=== PATIENT | male | born 1960 | race Caucasian/White ===

== ENCOUNTER 2023-04-24 09:18 | Inpatient (IN) | payer OTHER, MEDICAID, SELFPAY ==
[2023-04-24] VITALS (11 sets, daily range): BP systolic 97–147; BP diastolic 52–86
--- NOTE | 2023-04-24 06:55 | ED.GENMED ---
History of Present Illness
General
Chief Complaint: Breathing Problem
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
Exam Limitations: none
Time Seen by Provider: 04/24/23 06:48
Nursing documentation reviewed up to this point in time: agreed with
History of Present Illness
History of Present Illness:
62-year-old male with a past medical history as documented notable for COPD who presents to the emergency department via EMS for evaluation of shortness of breath. Patient reports onset of symptoms overnight last night he thinks around 1 AM. He
says they have been constant since that time. He reports associated cough that is productive of scant amount of sputum. He says he has associated substernal chest tightness. He denies any associated fever or chills although had a low-grade fever
on arrival here. He has not noticed any swelling in his legs. Denies any abdominal pain, nausea, vomiting. Per EMS report patient received 2 DuoNebs prior to arrival in the hospital.
Review of Systems
Review of Systems
All Other Systems: ROS reviewed and negative except as documented in HPI and ROS
Constitutional: Denies fever or chills
EENT: Denies runny nose
Respiratory: Reports cough and trouble breathing
Cardiac: Reports chest pain; Denies palpitations
ABD/GI: Denies abdominal pain, nausea or vomiting
: Denies flank pain
Musculoskeletal: Denies edema, neck pain or back pain
Neurological: Denies headache, weakness or numbness
Phy Exam
Physical Exam
Physical Exam:
General: Awake, alert, oriented x3; no acute distress
Head: Normocephalic, atraumatic
Eyes: Conjunctiva normal, right eye strabismus
Throat: Airway intact, handling secretions
Neck: Trachea midline, supple without meningismus
Lungs: Pulse ox 87% on room air; acceptable respiratory rate and work of breathing; he has focally diminished breath sounds at the right lung base; no significant wheezing or rales appreciated
Heart: Regular rate and rhythm, faint systolic murmur
Abd: Soft, non distended, nontender
Neuro: Cranial nerves grossly intact, speech fluid
Skin: no rash
Extremities: No edema in extremities, equal pulses in all extremities
Scores
Heart Failure Risk
Heart Failure Risk Score: Not Applicable
Heart Score for Chest Pain Patients
STEMI patient?: Not applicable
Withdrawal Assessment of Alcohol
Withdrawal Assessment Completed?: Not applicable
Course
Orders/Labs/Results
Orders:
Orders
04/24/23 06:54
CR Chest Portable - 1 View Urgent
Comment:
Reason For Exam: sob
Reason Study Needs to be Portable: Unable to Transport
04/24/23 06:55
Electrocardiogram (*1) Urgent
Reason for Study: Shortness of Breath
EKG- Treatment ONCE
04/24/23 06:59
Acetaminophen [Tylenol] 1,000 mg PO NOW STA
04/24/23 07:00
COVID-19 Antigen Urgent
Source: Nasal Swab
Complete Blood Count/With Diff Urgent
Influenza A+B Rapid Molecular Urgent
TUSHAR Source: Nasal Swab
Specimen Description:
04/24/23 07:12
Acetaminophen [Tylenol] 500 mg .ROUTE .STK-MED ONE
04/24/23 07:15
Lactate Level [Lactic Acid] Urgent
Blood Culture Q30M
TUSHAR Source: Blood/Venous
Specimen Description:
04/24/23 07:25
Azithromycin 500 mg/250 ml [Zithromax Infusion] 500 mg in 250 ml IV NOW
CefTRIAXone [Rocephin] 1,000 mg IV NOW STA
04/24/23 07:28
Blood Culture Q30M
TUSHAR Source: Blood/Venous
Specimen Description:
04/24/23 07:29
0.9% Sodium Chloride 500 ml [Nss] 500 ml IV BOLUS
04/24/23 07:38
Comprehensive Metabolic Panel Urgent
NT-proBNP Urgent
Troponin I Urgent
Vital Signs
Initial and Last Documented VS:
Initial Vital Signs
Temp Pulse Resp BP Pulse Ox
38.3 C H 101 16 147/75 91
04/24/23 06:51 04/24/23 06:51 04/24/23 06:51 04/24/23 06:51 04/24/23 06:51
Last Documented Vital Signs
Temp Pulse Resp BP Pulse Ox
38.3 C H 101 16 147/75 96
04/24/23 06:51 04/24/23 06:51 04/24/23 06:51 04/24/23 06:51 04/24/23 06:51
MDM/Problems Addressed
Differential Diagnosis Includes:
Pneumonia, COPD exacerbation, bronchitis, pulmonary embolism
MDM/Problems Addressed:
62-year-old male presents for evaluation of shortness of breath associated with coughing and some chest tightness that started overnight last night. He did receive 2 DuoNeb's prior to arriving in the hospital says he feels slightly better but still
not normal. Vital signs here significant for low-grade fever and hypoxia to 87% requiring 2 L nasal cannula. Physical exam as above. Plan to place an IV check labs including a CBC and CMP, troponin, BNP. Will send lactate and blood cultures
given multiple SIRS criteria. Check an EKG and stat chest x-ray. Tylenol for fever. Will monitor closely reassess after the above.
Chest x-ray reviewed by me shows right lower lobe opacity concerning for pneumonia given full clinical picture. Plan to treat for community-acquired pneumonia with Rocephin and azithromycin. Plan for admission given his acute respiratory failure
requiring 2 L of nasal oxygen. Case discussed with hospitalist for admission.
Chronic conditions affecting care:
COPD
*Radiology
Radiology exam reviewed: preliminary read by ED provider and radiology read reviewed
*Pulse Oximetry
Patient hypoxic: yes
*EKG
Interpreted by ED Provider?: Yes
Comparison EKG: changes noted (Inferior T wave versions)
Heart Rate: 105
Rate: tachycardiac
Rhythm: sinus and sinus tachycardia
Henderson: right axis deviation
Interval: normal interval
QRS Pattern: normal QRS
Ischemia: T-wave inversion (Inferior T wave inversions)
*Critical Care Note
Total Time (30-74mins, 75-104mins- exclusive of procedures): Not Applicable
Data Reviewed
Source: patient, records and ambulance crew
Patient Management
Discussion with other providers: Hospitalist (Discussed with hospitalist)
Escalation/DeEscalation of care consider admission/obs:
Admission indicated
ED Attending Note
-
Portions of this chart may have been created with voice recognition software.� Occasional wrong word or��sound alike� substitutions may have occurred due to the inherent limitations of voice recognition software.
Discharge Plan
Departure
Patient Disposition: Admit
Date of Disposition: 04/24/23
Time of Disposition: 07:57
Admit to doctor: Ty
Presentation/result/management discussed w/ accepting MD/DO: Hospitalist
Discharge Problem:
Pneumonia, Acute respiratory failure with hypoxia
Prescriptions:
No Action
dorzolamide-timolol 1 DROP drops
1 drp BOTH EYES BID
sitagliptin phosphate [Januvia] 100 MG tablet
100 mg PO DAILY
metformin 1,000 MG tablet
1,000 mg PO DAILY
atenolol 25 MG tablet
25 mg PO DAILY
alum-mag hydroxide-simeth [Mag-Al Plus] 30 ML suspension
30 ml PO DAILYPRN PRN (Reason: indegestion)
cyanocobalamin (vitamin B-12) 1,000 MCG tablet
500 mcg PO DAILY
fexofenadine 180 MG tablet
180 mg PO DAILY
aspirin 81 MG tablet,delayed release (DR/EC)
81 mg PO DAILY
bismuth subsalicylate [Stomach Relief] 30 ML suspension
524 ml PO Q4HPRN PRN (Reason: GI upset)
levothyroxine 200 MCG tablet
200 mcg PO DAILY AT 0700
lisinopril 2.5 MG tablet
2.5 mg PO DAILY
cholecalciferol (vitamin D3) 2,000 UNITS tablet
4,000 units PO DAILY
iloperidone [Fanapt] 12 MG tablet
12 mg PO DAILY
oakfzqpohvo-hwooxrqps-ynwggpjt [Trelegy Ellipta] 1 EACH blister with device
1 ea IH R DAILY
divalproex 250 MG tablet,delayed release (DR/EC)
250 mg PO BID
divalproex 500 MG tablet,delayed release (DR/EC)
1,000 mg PO BID
hydroxyzine HCl 25 MG tablet
50 mg PO QPM
olanzapine 10 MG tablet
20 mg PO QPM
ketoconazole 1 APPLIC cream
0 applic topical BID
Patient Comments:
11/26/20: Per Mayur Miller RN, order for ketoconazole does not specify where to apply
guaifenesin [Mucus Relief ER] 600 MG tablet extended release 12hr
1,200 mg PO Q12 Qty: 14 0RF
levofloxacin 500 MG tablet
500 mg PO DAILY Qty: 5 0RF
furosemide [Lasix] 20 MG tablet
20 mg PO DAILY Qty: 5 0RF
Referrals:
UNKNOWN - PT DOES,NOT KNOW [Family Provider] -
Interventions
Interventions:
*Risk Screen - Suicide Last Done: 04/24/23 06:51
*General Assessment Last Done: 04/24/23 06:51
*Neglect/Abuse Screening Last Done: 04/24/23 06:51
*ED COVID-19 Vaccine History Last Done: 04/24/23 06:51
ED- Cardiac Assessment Last Done: 04/24/23 06:51
ED- Pulmonary Assessment Last Done: 04/24/23 06:51
[2023-04-24] MEDS: TYLENOL 1000 MG PO (07:11)
[2023-04-24] MEDS: NSS 500 IV ×2 (07:31→08:50)
[2023-04-24] MEDS: ROCEPHIN 1000 MG IV (07:31)
[2023-04-24] MEDS: ZITHROMAX INFUSION 250 IV (07:31)
--- NOTE | 2023-04-24 07:35 | EDRN ---
Pt's staff member from [facility] is at bedside. Pt continues to cough, placed on 2L nasal cannula to keep SPO2 > 90%
[2023-04-24 08:07] LABS: Lactic Acid 2.6 mmol/L (0.7-2.0)
[2023-04-24 08:16] LABS: COVID-19 Antigen Negative (Negative)
[2023-04-24 08:17] LABS: ALT (SGPT) 19 U/L (0-50); AST (SGOT) 20 U/L (17-59); Albumin 3.1 g/dl (3.5-5.0); Alkaline Phosphatase 59 U/L (38-126); Blood Urea Nitrogen 27 mg/dl (9-20); Calcium 8.7 mg/dl (8.4-10.2); Carbon Dioxide 32 mmol/L (22-30); Chloride 98 mmol/L (98-107); Glucose 252 mg/dl (70-99); Potassium 4.6 mmol/L (3.5-5.1); Sodium 136 mmol/L (135-145); Total Bilirubin 0.9 mg/dl (0.2-1.3); Total Protein 5.6 g/dl (6.3-8.2); eGFR > 60.00
[2023-04-24 08:29] LABS: NT-proBNP 132 pg/ml; Troponin I 0.029 ng/ml
--- NOTE | 2023-04-24 09:08 | HPS.HSE ---
Family Physician
-
Family Physician: NOT KNOW UNKNOWN - PT DOES
Chief Complaint
-
Shortness of breath/cough
History of Present Illness
Patient is 62-year-old male with past medical history of schizophrenia, COPD, GERD, hypothyroidism, essential hypertension was brought in from [facility] after patient was noted to having new shortness of breath. Patient not able to
provide any detailed information although does feel short of breath. Denies of having any cough. Complaining some congestion. In ER patient hypoxic requiring 2 L oxygen through nasal cannula, at baseline patient not on any oxygen. Patient
spiking temperature of 100.9 Fahrenheit, according to caregiver at bedside in ER patient was noted to having some chills, no reported fever. Patient denies of having any other abdominal or complaints.
Medical History
Past Medical History
Past Medical History: Reports Other
Additional Past Medical History:
schizophrenia, COPD, GERD, hypothyroidism, essential hypertension
Past Surgical History: Reports Other
Social History
Unable to obtain full social history at this time due to: Other (Schizophrenic, details unknown)
Living: Other (intermediate)
Family History
Family History: Unable to Obtain
Allergies / Home Medications
Allergies reflects when Allergies were last updated in [facility].
Home Medications with original date entered in [facility]opay
Allergy/Medication List:
Allergies
Allergy/AdvReac Type Severity Reaction Status Date / Time
No Known Allergies Allergy Verified 11/26/20 09:35
Home Medications
aluminum-mag hydroxide-simethicone 200 mg-200 mg-20 mg/5 mL oral susp (Mag-Al Plus) 30 ml PO DAILYPRN PRN indegestion 10/12/18
atenolol 25 mg tablet 25 mg PO DAILY Blood pressure 10/12/18
sitagliptin phosphate 100 mg tablet (Januvia) 100 mg PO DAILY Diabetes 10/12/18
cyanocobalamin (vitamin B-12) 1,000 mcg tablet 500 mcg PO DAILY Supplement 07/08/19
divalproex 250 mg tablet,delayed release 250 mg PO BID total dose 1250mg BID 07/08/19
fexofenadine 180 mg tablet 180 mg PO DAILY Allergies 07/08/19
iloperidone 12 mg tablet (Fanapt) 12 mg PO DAILY Mental Health/Anxiety 07/08/19
levothyroxine 200 mcg tablet 200 mcg PO DAILY AT 0700 Thyroid 07/08/19
lisinopril 2.5 mg tablet 2.5 mg PO DAILY Blood pressure 07/08/19
divalproex 500 mg tablet,delayed release 1,000 mg PO BID total 1250mg BID 11/26/20
hydroxyzine HCl 25 mg tablet 50 mg PO HS Mental Health/Anxiety 11/26/20
olanzapine 10 mg tablet 20 mg PO QPM Mental Health/Anxiety 11/26/20
acetaminophen 325 mg tablet (Tylenol) 650 mg PO Q4H PRN mild pain, fever 04/24/23
albuterol sulfate 90 mcg/actuation aerosol inhaler 2 puff inhalation Q4HPRN PRN shortness of breath 04/24/23
atorvastatin 20 mg tablet 20 mg PO DAILY 04/24/23
insulin aspart U-100 100 unit/mL (3 mL) subcutaneous pen (Novolog FlexPen U-100 Insulin aspart) 0 - 14 unit SC AC Diabetes 04/24/23
ipratropium 0.5 mg-albuterol 3 mg (2.5 mg base)/3 mL nebulization soln 3 ml inhalation Q4H PRN SOB/ wheezing 04/24/23
metformin 500 mg tablet 500 mg PO BID Diabetes 04/24/23
omeprazole 20 mg tablet,delayed release 20 mg PO DAILY Gastrointestinal Issue 04/24/23
Review of Systems
-
A 12 point ROS was completed and negative except as noted: Yes
Physical Exam
Vital Signs
Vital Signs
Temp Pulse Resp BP Pulse Ox
100.9 F H 101 16 147/75 96
04/24/23 06:51 04/24/23 06:51 04/24/23 06:51 04/24/23 06:51 04/24/23 06:51
Physical Exam
General: No Apparent Distress; No Respiratory Distress
HEENT: Atraumatic and Oxygen (2L NC)
Respiratory: Wheezes; No Rhonchi or Crackles
Cardiac: S1/S2 and Regular Rhythm; No Murmur or Rub
GI: Soft, Non Tender, Non Distended and Normal Bowel Sounds; No Organomegaly
Musculoskeletal: No Cyanosis and No Edema
Skin: No Rash
Neuro: Awake, Alert and Nonfocal/grossly intact
Psych: Calm
Laboratory Results
-
04/24/23 07:38
Laboratory Results
Lactic Acid 2.6 mmol/L (0.7-2.0) H 04/24/23 07:15
Total Bilirubin 0.9 mg/dl (0.2-1.3) 04/24/23 07:38
AST 20 U/L (17-59) 04/24/23 07:38
ALT 19 U/L (0-50) 04/24/23 07:38
Alkaline Phosphatase 59 U/L (38-126) 04/24/23 07:38
Troponin I 0.029 ng/ml 04/24/23 07:38
Data Reviewed
-
Diagnostic Radiology: Image Personally Visualized and interpreted and Report Reviewed by me
Lab Data: Labs Reviewed by me
Impression/Plan
-
1. Right lower lobe pneumonia
Acute hypoxic respite insufficiency
Sepsis -tachycardic/febrile
-Patient presented for new onset of cough/shortness of breath. Temperature of 100.9 in ER.
-Chest x-ray showing right lower lobe infiltrates
-WBC normal. Heart rate 103. EKG showing sinus tachycardia
-COVID/flu negative. Check blood culture.
-Patient got dose of Rocephin and azithromycin continue
-Wean off oxygen as possible
2. COPD flareup
-Patient wheezing on exam, with ongoing pneumonia sepsis we will treat as asthma flare up
-Start on oral prednisone 40mg/d
-neb therapy ordered
3. schizophrenia
-Maintain on home medication of divalproex/Fanapt/olanzapine
-no behavioral problems
4. Hypotension
Essential HTN
-Patient blood pressure soft, improved with IV fluid
-Continue home hypertensive medication with hold parameter
GERD
hypothyroidism
DVT PPX - lovenox
Full code- facility face sheet reviewed
Total time spent : 80 mins
I personally saw and examined the patient.
I have reviewed all diagnostic interpretations and treatment plans as written.
Time includes patient management by me, time spent at the patients bedside, time to review lab and imaging results, discussing patient care, documentation in the medical record, and time spent with the family or caregiver and discussing care plan
with RN/Consultants.
[2023-04-24] MEDS: DELTASONE 40 MG PO (09:29)
[2023-04-24 09:36] LABS: % Basophils 0.6 % (0-2); % Immature Granulocytes 3.1 % (0-0.5); % Lymphocytes 9.8 % (20.5-51.1); % Monocytes 26.9 % (1.7-9.3); % Neutrophils 59.6 % (42.2-75.2); Absolute Immature Granulocytes 0.2 10^3/uL (0-0.05); Absolute Lymphocytes 0.5 10^3/uL (1.2-3.4); Absolute Monocytes 1.4 10^3/uL (0.1-0.6); Hematocrit 34.8 % (39.0-52.0); Hemoglobin 11.6 g/dL (13.0-18.0); Mean Corp Hgb Conc. 33.3 g/dL (33.0-37.0); Mean Corpuscular Hgb 32.5 pg (27.0-31.0); Mean Corpuscular Volume 97.5 fL (80.0-94.0); Nucleated Red Blood Cells % 0 % (-); Red Blood Cell Count 3.57 10^6/uL (4.70-6.10); Red Cell Dist. Width 13.6 % (11.5-14.5); White Blood Cell Count 5.1 10^3/uL (4.8-10.8)
[2023-04-24 10:25] LABS: Platelet Count 133 10^3/uL (130-400)
[2023-04-24 10:32] LABS: Band Neutrophils 1 % (0-3); Lymphocytes 26 % (20-51); Monocytes 15 % (2-9); Segmented Neutrophils 58 % (42-75)
[2023-04-24 10:33] LABS: Normal RBC Morphology Yes; Platelets Checked Yes; Total Cells Counted 100
[2023-04-24 14:15] LABS: Glucose - Point of Care 274 mg/dl (70-99)
--- NOTE | 2023-04-24 15:17 | PTCARENOTE ---
Rn Flow Assistant To The Vice President-Patient unable to providee all answers to admission questions. Called to Nurse Levin at [facility] for information.
--- NOTE | 2023-04-24 16:33 | EDRN ---
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 Pt transported upstairs.
[2023-04-24 16:46] LABS: Glucose - Point of Care 402 mg/dl (70-99)
[2023-04-24] MEDS: NOVOLOG FLEXPEN-LOW RESISTANCE SC (16:48)
[2023-04-24] MEDS: NSS 1000 IV (17:00)
[2023-04-24] MEDS: JANUVIA 100 MG PO (17:01)
[2023-04-24] MEDS: LOVENOX 40 MG SC (17:01)
[2023-04-24] MEDS: ZYPREXA 20 MG PO (17:01)
[2023-04-24] MEDS: ATARAX 50 MG PO (17:01)
[2023-04-24] MEDS: SYNTHROID PO (17:04)
[2023-04-24 17:16] LABS: Glucose 368 mg/dl (70-99)
[2023-04-24] MEDS: NOVOLOG FLEXPEN-LOW RESISTANCE 5 UNITS SC (17:32)
[2023-04-24] MEDS: TYLENOL 650 MG PO (20:34)
[2023-04-24] MEDS: DEPAKOTE (12 HR RELEASE) 250 MG PO (20:35)
[2023-04-24] MEDS: DEPAKOTE (12 HR RELEASE) 1000 MG PO (20:35)
[2023-04-24 21:41] LABS: Glucose - Point of Care 225 mg/dl (70-99)
[2023-04-25] MEDS: MAALOX 30 ML PO (00:15)
[2023-04-25] MEDS: DUONEB 3 ML INH ×2 (05:30→08:29)
--- NOTE | 2023-04-25 06:00 | PTCARENOTE ---
Pt found lying in bed, had O2 off. pulse ox 72% on RA. Placed on 4L, pulse ox 93%. Pt SOB and wheezing. TT respiratory for PRN neb. Pulse ox after treatment 99% on 4L. O2 turned down to 3L, pulse ox now 93%. Pt resting comfortably in bed. Will
continue to monitor.
[2023-04-25 06:48] LABS: Hematocrit 34.3 % (39.0-52.0); Mean Corp Hgb Conc. 32.1 g/dL (33.0-37.0); Mean Corpuscular Hgb 32.2 pg (27.0-31.0); Mean Corpuscular Volume 100.3 fL (80.0-94.0); Mean Platelet Volume 10.4 fL (7.4-10.4); Platelet Count 171 10^3/uL (130-400); Red Blood Cell Count 3.42 10^6/uL (4.70-6.10); Red Cell Dist. Width 13.7 % (11.5-14.5); White Blood Cell Count 3.8 10^3/uL (4.8-10.8)
[2023-04-25 07:26] LABS: ALT (SGPT) 18 U/L (0-50); AST (SGOT) 25 U/L (17-59); Albumin 2.9 g/dl (3.5-5.0); Alkaline Phosphatase 54 U/L (38-126); Blood Urea Nitrogen 23 mg/dl (9-20); Calcium 8.6 mg/dl (8.4-10.2); Carbon Dioxide 37 mmol/L (22-30); Chloride 93 mmol/L (98-107); Estimated Creatinine Clearance 116 ml/min; Glucose 169 mg/dl (70-99); Potassium 4.5 mmol/L (3.5-5.1); Sodium 135 mmol/L (135-145); Total Bilirubin 0.6 mg/dl (0.2-1.3); Total Protein 5.4 g/dl (6.3-8.2); eGFR > 60.00
[2023-04-25] MEDS: NSS 1000 IV (08:07)
[2023-04-25] MEDS: LIPITOR 20 MG PO (08:08)
[2023-04-25] MEDS: JANUVIA 100 MG PO (08:08)
[2023-04-25] MEDS: VIBRAMYCIN 100 MG PO ×2 (08:08→20:54)
[2023-04-25] MEDS: SYNTHROID 200 MCG PO (08:08)
[2023-04-25] MEDS: DEPAKOTE (12 HR RELEASE) 1000 MG PO ×2 (08:09→20:54)
[2023-04-25] MEDS: CLARITIN 10 MG PO (08:09)
[2023-04-25] MEDS: PROTONIX 40 MG PO (08:09)
[2023-04-25] MEDS: DEPAKOTE (12 HR RELEASE) 250 MG PO ×2 (08:09→20:54)
[2023-04-25] MEDS: DELTASONE 40 MG PO (08:09)
[2023-04-25 08:13] VITALS: BP 93/53
[2023-04-25] MEDS: TYLENOL 650 MG PO ×2 (08:16→21:13)
[2023-04-25 09:00] LABS: Glucose - Point of Care 153 mg/dl (70-99)
[2023-04-25] MEDS: NOVOLOG FLEXPEN-LOW RESISTANCE 1 UNITS SC (09:32)
[2023-04-25] MEDS: ROCEPHIN 1000 MG IV (09:36)
[2023-04-25] MEDS: STERILE WATER FOR INJECTION 10 ML IV (09:36)
[2023-04-25 09:49] LABS: Glycohemoglobin (HgbA1c) 8.5 % (4.0-5.6)
[2023-04-25 11:25] VITALS: BP 121/66; PULSE 100; O2SAT 98
[2023-04-25 11:27] VITALS: BP 121/66; PULSE 100; O2SAT 98
[2023-04-25 11:33] LABS: Glucose - Point of Care 210 mg/dl (70-99)
[2023-04-25] MEDS: NOVOLOG FLEXPEN-LOW RESISTANCE 2 UNITS SC ×2 (12:32→17:09)
--- NOTE | 2023-04-25 13:20 | CM ---
Reviewed chart, placed a call to [facility] intermediate for information for assessment. Patient's RN, Gonzalez' answered and stated that she is patient's RN and was able to provide information. She stated that patient lives in the intermediate on
the first floor with no steps.
Ollie described patient as in need of supervision with all his ADLs, personal care, dressing and bathing and needs cues as well/sometimes min assist. Patient can feed himself. The facility provides food, cleans, does laundry and all features editor.
There is always a nurse on site to administer medications. The facility does all the shopping and takes patient to his appointments.
Patient is ambulatory and does not use an AD. He has a glucomter. A nebulizer and he is on o2 prn and has home o2 as well as a concentrator.
Patient's PCP is Dr. Federico Edwards.
Ollie stated that when patient is medically cleared as long as he is close to his baseline they can assist him when he returns. She confirmed that facility can supervisor nurse and transfer home. # [phone].
Plan: Case management will continue to follow and assist with discharge planning. Patient's intermediate confirmed that they can accommodate patient's needs as long as he is near baseline.
--- NOTE | 2023-04-25 14:29 | W.PN.HOSP.TC ---
Today's Communication/Plan
-
continue abx
wean off o2 as possible
check vbg x1
Assessment / Plan
Assessment / Plan
1.� Right lower lobe pneumonia
�� � Acute hypoxic respite insufficiency
� � Sepsis -tachycardic/febrile
-Patient presented for new onset of cough/shortness of breath.� Temperature of 102.5 F in ER.
-Chest x-ray showing right lower lobe infiltrates
-WBC normal.� Heart rate 103.� EKG showing sinus tachycardia
-COVID/flu negative.� Blood cs neg
-Patient got dose of Rocephin and azithromycin continue
-Wean off oxygen as possible
2.� COPD flareup
-Patient wheezing on exam, with ongoing pneumonia sepsis we will treat as asthma flare up
-Start on oral prednisone 40mg/d
-neb therapy ordered
3. schizophrenia
-Maintain on home medication of divalproex/Fanapt/olanzapine
-no behavioral problems
4. Hypotension
� � Essential HTN
-Blood pressure remains soft again today.
-Hold blood pressure medication
5. Metabolic alkalosis
-HCO3 37, undiagnosed chronic hypercapnic resp failure ?
-check VBG
GERD
hypothyroidism
DVT PPX - lovenox
Full code- facility face sheet reviewed
Anticipated Discharge: 24 - 48 hours
Subjective/Interval History
-
Date of Service: April 25, 2023
Resting comfortably in bed
remains hypoxic on 3 L o2 through NC
high grade temp 102.5 F
Objective Data
-
Labs:
Laboratory Results
04/25/23
06:03
WBC 3.8 L
Hgb 11.0 L
Hct 34.3 L
Plt Count 171 D
Sodium 135
Potassium 4.5
Chloride 93 L
Carbon Dioxide 37 H
BUN 23 H
Creatinine 0.7
Glucose 169 H
Calcium 8.6
Total Bilirubin 0.6
AST 25
ALT 18
Alkaline Phosphatase 54
Vital Signs:
Vital Signs
Temp Pulse Resp BP Pulse Ox
99.6 F 100 24 93/53 95
04/25/23 09:30 04/25/23 08:33 04/25/23 08:33 04/25/23 08:17 04/25/23 08:33
I&O
04/24/23 04/25/23 04/26/23
06:59 06:59 06:59
Intake Total 1680 / 1680
Output Total 465 / 465
Balance 1215 / 1215
Review of Systems
-
Respiratory: Reports Wheezing; Denies Cough or Trouble Breathing
Cardiac: Reports No Symptoms
Abdomen/GI: Reports No Symptoms
Physical Exam
-
HEENT: Oxygen (3L NC)
Respiratory: Wheezes
Cardiac: Regular Rhythm and S1/S2; Negative Murmur
GI: Soft, Nontender and Nondistended
Neuro: Awake, Alert, Oriented and No Motor Deficits
[2023-04-25 15:03] VITALS: BP 119/61
[2023-04-25 15:05] LABS: Venous Blood Gas B.E. 11.1 mmol/L (-4 to +4); Venous Blood Gas HCO3 39.4 mmol/L (22-27); Venous Blood Gas O2 Sat % 98.2 %; Venous Blood Gas pH 7.34 (7.32-7.43); Venous Blood Gas pO2 115 mmHg (30-50)
[2023-04-25 15:07] LABS: Venous Blood Gas pCO2 73 mmHg (35-48)
[2023-04-25 15:57] LABS: Glucose - Point of Care 222 mg/dl (70-99)
[2023-04-25] MEDS: ZYPREXA 20 MG PO (17:09)
[2023-04-25] MEDS: ATARAX 50 MG PO (17:09)
[2023-04-25] MEDS: LOVENOX 40 MG SC (17:09)
[2023-04-25] MEDS: NON-FORMULARY ITEM 12 MG PO (20:54)
[2023-04-25 21:00] VITALS: BP 138/79
[2023-04-25 21:28] LABS: Urine Albumin Negative (Neg - Trace); Urine Bilirubin Negative (Negative); Urine Character Clear (Clear); Urine Color Yellow; Urine Glucose 2+ (Negative); Urine Ketone Trace (Negative); Urine Leukocyte Negative (Negative); Urine Nitrite Negative (Negative); Urine Occult Blood Negative (Negative); Urine Urobilinogen Negative (Neg - 1+)
[2023-04-25] MEDS: NSS IV (22:16)
[2023-04-25 22:40] LABS: Glucose - Point of Care 291 mg/dl (70-99)
[2023-04-25 23:05] VITALS: BP 124/65
[2023-04-26] VITALS (39 sets, daily range): BP systolic 95–181; BP diastolic 66–158; PULSE 2–94; BMI 31.2
[2023-04-26] MEDS: TYLENOL/FEVERALL 650 MG RECTAL (04:12)
[2023-04-26 06:46] LABS: Hemoglobin 10.9 g/dL (13.0-18.0); Mean Corp Hgb Conc. 32.1 g/dL (33.0-37.0); Mean Corpuscular Hgb 32.7 pg (27.0-31.0); Mean Corpuscular Volume 102.1 fL (80.0-94.0); Mean Platelet Volume 9.6 fL (7.4-10.4); Platelet Count 193 10^3/uL (130-400); Red Blood Cell Count 3.33 10^6/uL (4.70-6.10); Red Cell Dist. Width 13.4 % (11.5-14.5); White Blood Cell Count 3.3 10^3/uL (4.8-10.8)
[2023-04-26 07:07] LABS: ALT (SGPT) 18 U/L (0-50); AST (SGOT) 23 U/L (17-59); Albumin 2.8 g/dl (3.5-5.0); Alkaline Phosphatase 54 U/L (38-126); Blood Urea Nitrogen 19 mg/dl (9-20); Chloride 95 mmol/L (98-107); Estimated Creatinine Clearance 116 ml/min; Glucose 172 mg/dl (70-99); Potassium 4.7 mmol/L (3.5-5.1); Sodium 137 mmol/L (135-145); Total Bilirubin 0.4 mg/dl (0.2-1.3); Total Protein 5.3 g/dl (6.3-8.2); eGFR > 60.00
[2023-04-26 07:18] LABS: Carbon Dioxide 41 mmol/L (22-30)
--- NOTE | 2023-04-26 07:28 | CON.NEURO ---
Neuro Assessment/Plan
Assessment
IMPRESSIONS/RECOMMENDATIONS:
Abrupt change in left-sided facial weakness; not clearly present on examination currently in this patient with prior history of intellectual disability and schizophrenia
Continue supportive care
Check blood work for additional metabolic causes for the patient's encephalopathy which is most likely toxic metabolic in nature
Will continue to follow patient as needed.
Plan
Continue supportive care
Check blood work for additional metabolic causes for the patient's encephalopathy which is most likely toxic metabolic in nature
Consultation
Order
Date of Consultation: 04/26/23
Requesting Provider: Hospitalist
Reason for Consult: Change in mental status
Subjective/Objective
Subjective Data
Date of Service: April 26, 2023
Adapted from my esteemed colleagues consultation of October 15, 2018:
Reason for Consultation: seizure
History of Present Illness:
58-year-old male brought in yesterday from [facility] after he was found unresponsive. He was last seen normal around 8 PM. The staff checked on him around 11 and found him minimally responsive and called 911. The staff stated that similar
episodes of apnea in the past. He has a history of schizophrenia and has possibly been noncompliant with medications. He has a history of developmental delay and cognitive disability. It is unclear whether or not he has a history of seizures. He
is on Depakote as an outpatient and it is unclear whether or not he has been taking this. He has developed worsening respiratory distress. ABGs revealed acute on chronic hypercarbia and he has been placed on BiPAP and transferred to the eye and U.
However he appears to be back to his baseline mental status; at baseline he is apparently only oriented to self. He has also been found to have a UTI.
Neuro Imaging: Head CT with no acute findings, atrophy was seen
Impression:
NICOLA MOHR is a 58 year old M who has presented to the hospital after an episode of minimal responsiveness. He is now returned to his baseline mental status. He does take Depakote as an outpatient although it is unclear whether or not he is
on this for mood stabilization or for seizure. We will need to obtain his records. He has been found to have hypercarbia and possible UTI both of which could cause toxic metabolic encephalopathy. Provoked seizure is also on the differential.
Recommendations:
1. EEG
2. Loaded with Depakote as he did not receive it apparently on admission; check Depakote level and restart standing doses of Depakote that he takes as an outpatient
3. MRI brain with and without contrast
4. Seizure precautions
5. Continue neuro checks.
6. No AED at this time as his event was not clearly consistent with seizure activity.
Abnormal EEG Activity
Single medium amplitude left temporal sharp wave (T3 maximal)
LESS THAN 1 HOUR EEG INTERPRETATION:
Mildly abnormal EEG for age due to mild diffuse bihemispheric slowing and single sharp wave
CLINICAL CORRELATION:
This study was suggestive of mild diffuse cortical dysfunction without focal abnormality. No seizures were recorded. This study was limited by patient cooperation. If concerns remain, a longer recording may be of assistance.
~~~~
Patient was readmitted 2 days ago due to fever and shortness of breath. Subsequently, after admission, patient was described as having worsening mentation and new left facial droop beginning yesterday prompting this consultation. The patient
himself is unable to provide his own medical history. There are no known associated symptoms and no known modifying factors.
Objective Data
Vital Signs
Temp Pulse Resp BP Pulse Ox
38.3 C H 98 18 124/65 91
04/26/23 04:11 04/25/23 23:05 04/25/23 23:05 04/25/23 23:05 04/25/23 23:05
Lab Results
04/26/23 05:32
04/26/23 05:32
Sodium 137 mmol/L (135-145) 04/26/23 05:32
Potassium 4.7 mmol/L (3.5-5.1) 04/26/23 05:32
BUN 19 mg/dl (9-20) 04/26/23 05:32
Glucose 172 mg/dl (70-99) H 04/26/23 05:32
Calcium 8.0 mg/dl (8.4-10.2) L 04/26/23 05:32
Cmi-S-Rnrowkqsaff Pept 132 pg/ml 04/24/23 07:38
Patient Allergies
No Known Allergies Allergy (Verified 11/26/20 09:35)
Modified [place] Score (MRS)
-
MRS Score:
Review of Systems
-
Unable to obtain full review of systems at this time due to: Other (Cognitive impairment)
History Source: Patient
All other systems: Reviewed and negative
Physical Exam
-
General: No Apparent Distress and Appears Stated Age
Eyes: Round OU, [place] Conjunctivae and No Ptosis; Negative Able to visualize OU
HEENT: Anicteric and Moist Mucous Membranes
Neck: Full Range of Motion
Respiratory: No Dyspnea
Cardiac: No JVD
GI: Non-distended
Skin: Unremarkable
Extremities: No Clubbing, No Cyanosis and No Edema
Psych: Negative Intact Judgement/Insight
Extended Neurological Exam
Mood & Affect: Mood Unremarkable and Affect Unremarkable
Attention Span & Concentration: Awake, Interactive, Closes Eyes after Stimulation (After approximately 5 seconds), Unable to Perform 2 Step Request and Other (Moderate difficulty with single step requests)
Memory: Able to Recall (Own name), Reduced (For current location) and Unable to Recall Personal History
Tremor: Hand Tremor Absent and Head Tremor Absent
Speech: Quality Unremarkable and Quantity Unremarkable
Cranial Nerve II: Left Eye: Pupillary Reactivity Unremarkable, Pupillary Size Unremarkable and Unable to Assess Visual Malin
Cranial Nerve II: Right Eye: Pupillary Reactivity Unremarkable, Pupillary Size Unremarkable and Unable to Assess Visual Malin
Cranial Nerves III, IV, : Extraocular Movement: Grossly Intact and Other (2+ left eye exotropia)
Cranial Nerve V: Facial Sensation: Unable to Assess
Cranial Nerve VII: Facial Symmetry: Normal Facial Symmetry
Cranial Nerve VIII: Hearing: Unremarkable Hearing to Normal Conversational Volume
Cranial Nerves IX, X: Palate Movement: Palate Elevation Symmetric
Cranial Nerve XI: Shoulder Shrug: Unremarkable
Cranial Nerve XII: Tongue Protusion: Midline
Muscle Strength, Overall: Full Throughout
Muscle Bulk & Tone: Bulk Unremarkable and Tone Unremarkable
Pronator Drift: No Drift in Upper Extremities
Deep Tendon Reflexes: Unremarkable Throughout
Touch Sensation: Unremarkable
Coordination: Reaches for Objects without Difficulty
Babinski Sign: Absent Bilaterally
Gait & Station: Unable to Assess
Medications
-
Active Medications
Generic Name Dose Route Start Last Admin
Trade Name Freq PRN Reason Stop Dose Admin
Acetaminophen 650 mg 04/24/23 13:01 04/25/23 21:13
Acetaminophen 325 Mg Tablet PO 05/22/23 13:00 650 mg
Q4HPRN PRN Administration
SEGURA/mild pain/temp > 100.4 F
Acetaminophen 650 mg 04/24/23 13:01 04/26/23 04:12
Acetaminophen 650 Mg Rectal Suppository RECTAL 05/22/23 13:00 650 mg
Q4HPRN PRN Administration
SEGURA/ mild pain/ temp >/= 100.4F
Albuterol/Ipratropium 3 ml 04/24/23 13:01 04/25/23 08:29
Ipratropium 0.5/Albuterol 3 Mg (3 Ml Ampul) INH 05/22/23 13:00 3 ml
R Q4HPRN PRN Administration
shortness of breath
Protocol
Atenolol 25 mg 04/25/23 08:00 04/25/23 08:16
Atenolol 25 Mg Tablet PO 05/23/23 07:59 Not Given
DAILY YAA
Atorvastatin Calcium 20 mg 04/25/23 08:00 04/25/23 08:08
Atorvastatin (Lipitor) 20 Mg Tablet PO 05/23/23 07:59 20 mg
DAILY YAA Administration
Dextrose 12.5 grams 04/24/23 13:01
Dextrose 50% (0.5 Grams/Ml) 50 Ml Syringe IV 05/22/23 13:00
[id number] PRN
hypoglycemia
Protocol
Divalproex Sodium 250 mg 04/24/23 20:00 04/25/23 20:54
Divalproex 250 Mg Delayed Release (12 Hr) Tablet PO 05/22/23 19:59 250 mg
BID YAA Administration
Divalproex Sodium 1,000 mg 04/24/23 20:00 04/25/23 20:54
Divalproex 500 Mg Delayed Release (12 Hr) Tablet PO 05/22/23 19:59 1,000 mg
BID YAA Administration
Enoxaparin Sodium 40 mg 04/24/23 18:00 04/25/23 17:09
Enoxaparin Sodium 40 Mg/0.4 Ml Syringe SC 05/22/23 17:59 40 mg
QPM YAA Administration
Glucagon 1 mg 04/24/23 13:01
Glucagon 1 Mg Vial IM 05/22/23 13:00
PRN PRN
hypoglycemia
Protocol
Insulin Aspart 0 units 04/24/23 13:01 04/25/23 17:09
Insulin Aspart Low Resistance 300 Units/3 Ml Pen.Injctr SC 05/22/23 13:00 2 units
AC YAA Administration
Protocol
Levothyroxine Sodium 200 mcg 04/24/23 13:01 04/25/23 08:08
Levothyroxine 200 Mcg Tablet PO 05/22/23 13:00 200 mcg
DAILY AT 0700 YAA Administration
Lisinopril 2.5 mg 04/25/23 08:00 04/25/23 08:17
Lisinopril 2.5 Mg Tablet PO 05/23/23 07:59 Not Given
DAILY YAA
Loratadine 10 mg 04/25/23 08:00 04/25/23 08:09
Loratadine 10 Mg Tablet PO 05/23/23 07:59 10 mg
DAILY YAA Administration
Patient Own 0 mg 04/25/23 20:00 04/25/23 20:54
Medication PO 05/23/23 19:59 12 mg
Iloperidone [Fanapt] DAILY@2000 YAA Administration
12 Mg Po Daily At
20:00
Pantoprazole Sodium 40 mg 04/25/23 08:00 04/25/23 08:09
Pantoprazole 40 Mg Delayed Release Tablet PO 05/23/23 07:59 40 mg
DAILY YAA Administration
Prednisone 40 mg 04/25/23 08:00 04/25/23 08:09
Prednisone 20 Mg Tablet PO 05/23/23 07:59 40 mg
DAILY YAA Administration
Sitagliptin Phosphate 100 mg 04/24/23 14:00 04/25/23 08:08
Sitagliptin (Januvia) 100 Mg Tablet PO 05/22/23 13:59 100 mg
DAILY YAA Administration
Sodium Chloride 0 flush 04/24/23 16:00
Sodium Chloride 0.9% (Flush) Syringe IV 05/22/23 15:59
PER PROTOCOL YAA
Sterile Water 10 ml 04/25/23 10:00 04/25/23 09:36
Sterile Water For Injection 10 Ml Vial IV 05/23/23 09:59 10 ml
Q24H YAA Administration
Home Medications
Medication Instructions Recorded
aluminum-mag hydroxide-simethicone 30 ml PO DAILYPRN PRN indigestion 10/12/18
200 mg-200 mg-20 mg/5 mL oral susp
(Mag-Al Plus)
atenolol 25 mg tablet 25 mg PO DAILY Blood pressure 10/12/18
sitagliptin phosphate 100 mg 100 mg PO DAILY Diabetes 10/12/18
tablet (Januvia)
cyanocobalamin (vitamin B-12) 500 mcg PO DAILY Supplement 07/08/19
1,000 mcg tablet
divalproex 250 mg tablet,delayed 250 mg PO BID total dose 1250mg BID 07/08/19
release
fexofenadine 180 mg tablet 180 mg PO DAILY Allergies 07/08/19
iloperidone 12 mg tablet (Fanapt) 12 mg PO DAILY@1999 schizoprenia 07/08/19
levothyroxine 200 mcg tablet 200 mcg PO DAILY AT 0700 Thyroid 07/08/19
lisinopril 2.5 mg tablet 2.5 mg PO DAILY Blood pressure 07/08/19
divalproex 500 mg tablet,delayed 1,000 mg PO BID total 1250mg BID 11/26/20
release
hydroxyzine HCl 25 mg tablet 50 mg PO HS Mental Health/Anxiety 11/26/20
olanzapine 10 mg tablet 20 mg PO DAILY@1999 Mental 11/26/20
Health/Anxiety
acetaminophen 325 mg tablet 650 mg PO Q4H PRN mild pain, fever 04/24/23
(Tylenol)
albuterol sulfate 90 mcg/actuation 2 puff inhalation Q4HPRN PRN 04/24/23
aerosol inhaler shortness of breath
atorvastatin 20 mg tablet 20 mg PO DAILY High Cholesterol 04/24/23
insulin aspart U-100 100 unit/mL 0 - 14 unit SC AC Diabetes 04/24/23
(3 mL) subcutaneous pen (Novolog
FlexPen U-100 Insulin aspart)
ipratropium 0.5 mg-albuterol 3 mg 3 ml inhalation Q4H PRN SOB/ 04/24/23
(2.5 mg base)/3 mL nebulization wheezing
soln
metformin 500 mg tablet 500 mg PO BID@0800,1700 Diabetes 04/24/23
omeprazole 20 mg tablet,delayed 20 mg PO DAILY Gastrointestinal 04/24/23
release Issue
glucose 4 gram chewable tablet 16 g PO ONCE PRN BS<70 04/25/23
(TRUEplus Glucose)
polyethylene glycol 3350 17 gram 17 g PO DAILY PRN constipation 04/25/23
oral powder packet (Miralax)
Past History
Past History
ED Past Medical History: COPD, GERD, HTN, NIDDM, Hypothyroidism, Psychiatric (Schizophrenia) and Other (COVID-21 July 2019, BPH, glaucoma)
ED Past Surgical History: None
Social History
Tobacco: Non-smoker
Alcohol: None
Drug: None
Personal: Single
Living: detention
Employment: Disabled
Family History
Family History: Other (Reviewed and noncontributory)
--- NOTE | 2023-04-26 07:48 | W.PN.HOSP.TC ---
Addendum entered and electronically signed by Lino Oates MD 04/26/23 11:36:
ABG showing ph 7.3 and Pco2 83
With worsening hypercapnia will require trial of BiPAP therapy, transfer to IMU
Recheck ABG ordered after 4hrs BiPAP therapy
Addendum entered and electronically signed by Lino Oates MD 04/26/23 08:36:
patient re-evaluated and more awake now
will hold on pulm consult/bipap thearpy
still would check abg x1
Holding on IMU transfer
Dose of olanzapine and hydroxyzine decreasing in half for tonight
Original Note:
Today's Communication/Plan
-
see note
Assessment / Plan
Assessment / Plan
1.� Right lower lobe pneumonia
�� � Acute hypoxic respite insufficiency
� � Sepsis -tachycardic/febrile
-Patient presented for new onset of cough/shortness of breath.� Temperature of 102.5 F in ER.
-Chest x-ray showing right lower lobe infiltrates
-WBC normal.� remains tachycardic
-COVID/flu negative.� Blood cs neg
-Patient continues to spike fever for last course. Blood culture remains negative so far
-UA has been relatively clear. No decubitus wounds
-f/u CXR and repeat COVID ordered.
-Escalate antibiotics to morning vancomycin and Zosyn
-ID consulted for further help.
2.� COPD flareup
-Patient wheezing on exam, with ongoing pneumonia sepsis we will treat as asthma flare up
-Start on oral prednisone 40mg/d
-neb therapy ordered
3. Acute toxic metabolic encephalopathy
Chronic Hypercapnic resp failure and met alkalosis
-Suspect a combination of hypercapnic respiratory failure and medication use related
-Patient on regimen of olanzapine 20 mg at bedtime, hydroxyzine 50 mg at bedtime, divalproex 1250 mg twice daily
-Holding olanzapine/hydroxyzine for now.
-Repeat ABG ordered. Trial of BiPAP therapy in IMU
4. Left facial droop
-noted yesterday evening by RN
-CT head w/o contrast normal
-MRI brain routine ordered
-Neuro help requested .
5. schizophrenia
-Maintain on home medication of divalproex/Fanapt/olanzapine
-no behavioral problems
6. Hypotension
� � Essential HTN
-Blood pressure remains soft again today.
-Hold blood pressure medication
GERD
hypothyroidism
DVT PPX - lovenox
Full code- facility face sheet reviewed
Case discussed with ID/pulmonology/neurology
Transfer to IMU for close observation for next 24 to 48 hours
Total time spent : 56 mins
I personally saw and examined the patient.
I have reviewed all diagnostic interpretations and treatment plans as written.
Time includes patient management by me, time spent at the patients bedside, time to review lab and imaging results, discussing patient care, documentation in the medical record, and time spent with the family or caregiver and discussing care plan
with RN/Consultants.
Anticipated Discharge: > 48 hours
Subjective/Interval History
-
Date of Service: April 26, 2023
Patient is more sedated today, opening eyes with physical stimuli only although no verbalizing anything
Remains hypoxic on oxygen through nasal cannula 2 L.
Remains in sinus tachycardia
Arteaga catheter in place, draining clear urine
Objective Data
-
Labs:
Laboratory Results
04/26/23 04/26/23
05:32 07:26
WBC 3.3 L
Hgb 10.9 L
Hct 34.0 L
Plt Count 193
HCO3 Pending
Sodium 137
Potassium 4.7
Chloride 95 L
Carbon Dioxide 41 H
BUN 19
Creatinine 0.7
Glucose 172 H
Calcium 8.0 L
Total Bilirubin 0.4
AST 23
ALT 18
Alkaline Phosphatase 54
Vital Signs:
Vital Signs
Temp Pulse Resp BP Pulse Ox
97.7 F 104 17 119/66 95
04/26/23 07:00 04/26/23 07:00 04/26/23 07:00 04/26/23 07:00 04/26/23 07:00
I&O
04/25/23 04/26/23 04/27/23
06:59 06:59 06:59
Intake Total 1680 / 1680
Output Total 465 / 465 950 / 950
Balance 1215 / 1215 -950 / -950
Review of Systems
-
Unable to obtain full review of systems at this time due to: Acuity
Physical Exam
-
General: Negative No Apparent Distress
HEENT: Oxygen (2L NC)
Respiratory: Wheezes and Rhonchi
Cardiac: Regular Rhythm, S1/S2 and Tachycardic; Negative Murmur
GI: Soft, Nondistended and Normal Bowel Sounds
Musculoskeletal: No Edema
Neuro: Awake (Minimal eye-opening is on physical stimuli) and No Motor Deficits
[2023-04-26 07:53] LABS: Glucose - Point of Care 160 mg/dl (70-99)
--- NOTE | 2023-04-26 07:59 | PHA.VAN.IN ---
Assessment
- Assessment
Renal Function: Appears similar to baseline
Concomitant Antimicrobials: piperacillin/tazobactam
AUC Dosing Plan
- Dosing Variables
Dosing Weight (kg): 91
Dosing CrCl (ml/min): 116
Vd coefficient (L/kg): 0.7
- Empiric Dosing
Initial / Loading Dose: 2000mg - administration pending
Maintenance Regimen: Vanc 1500mg Q12H starting at 1800
Estimated AUC (mcg*h/mL): 503
Estimated Peak (mcg*h/mL): 33.6
Estimated Trough (mcg/ml): 11.7
Estimated Half Life (H): 6.9
- Monitoring
No levels ordered at this time: consider levels in next few days
Pharmacokinetics Vancomycin I
- -
Patient Age: 62
Patient Sex: Male
Vancomycin Day #: 1
Indication: Other
Requesting Provider: Dr. Zachary Oates
Pertinent Antimicrobial Allergies:
NKDA
Height / Weight:
Height 5 ft 7 in
Actual Weight 91.4 kg
Pertinent Past Medical History: BMI ~32
- Vital Signs / Lab Results
Temp Pulse Resp BP Pulse Ox
97.7 F 104 17 119/66 95
04/26/23 07:00 04/26/23 07:00 04/26/23 07:00 04/26/23 07:00 04/26/23 07:00
Lab Results - Hematology
04/24/23 04/24/23 04/25/23
07:00 08:58 06:03
WBC Cancelled 5.1 3.8 L
Band Neutrophils 1
04/26/23
05:32
WBC 3.3 L
Band Neutrophils
Lab Results - Chemistry
04/24/23 04/24/23 04/25/23
07:00 07:38 06:03
BUN Cancelled 27 H 23 H
Creatinine Cancelled 0.8 0.7
Estimated Creat Clear Cancelled 116
Albumin Cancelled 3.1 L 2.9 L
04/26/23
05:32
BUN 19
Creatinine 0.7
Estimated Creat Clear 116
Albumin 2.8 L
04/24/23 04/24/23 04/24/23
07:15 13:17 17:01
Lactic Acid 2.6 H 1.0 Cancelled
04/24/23 04/25/23
21:01 01:01
Lactic Acid Cancelled Cancelled
Lab Results - Urine
04/25/23
21:22
Urine Nitrite (Reflex) Negative
Leukocyte Esterase Rfl Negative
Microbiology Results
04/24/23 07:28 Blood Culture - Preliminary
Blood/Venous No Growth in 48 hours- Final report to follow
04/24/23 07:15 Blood Culture - Preliminary
Blood/Venous No Growth in 48 hours- Final report to follow
04/24/23 07:00 Influenza Types A & B (CELINA) - Final
Nasal Swab Negative for Influenza A & B, NAAT
Negative results must be combined with clinical observations
and patient history.
Nucleic Acid Amplification test (NAAT)performed on the
[employer] platform.
[2023-04-26] MEDS: VANCOCIN 540 MG IV (08:13)
[2023-04-26] MEDS: NOVOLOG FLEXPEN-MODERATE RESISTANCE 1 UNITS SC (08:20)
[2023-04-26] MEDS: SYNTHROID 200 MCG PO (08:21)
[2023-04-26] MEDS: DELTASONE 40 MG PO (08:21)
[2023-04-26] MEDS: LIPITOR 20 MG PO (08:21)
[2023-04-26] MEDS: PROTONIX 40 MG PO (08:21)
[2023-04-26] MEDS: DEPAKOTE (12 HR RELEASE) 1000 MG PO (08:22)
[2023-04-26] MEDS: DEPAKOTE (12 HR RELEASE) 250 MG PO (08:22)
[2023-04-26] MEDS: CLARITIN 10 MG PO (08:22)
[2023-04-26 10:51] LABS: Erythrocyte Sed Rate 43 mm/hour (0-20)
[2023-04-26 11:09] LABS: B.E. 14.4 mmol/L; O2 Saturation % 94.2 % (94-98); PO2 70 mmHg (83-108); pH 7.33 (7.35-7.45)
[2023-04-26 11:24] LABS: HCO3 43.8 mmol/L (21-28); PCO2 83 mmHg (35-48)
[2023-04-26 11:26] LABS: TSH Reflex To Free T4 0.34 uIU/ml (0.47-4.68)
[2023-04-26] MEDS: ZOSYN 100 IV ×3 (11:33→20:29)
[2023-04-26] MEDS: STERILE WATER FOR INJECTION IV (11:34)
[2023-04-26 11:38] LABS: Glucose - Point of Care 252 mg/dl (70-99)
[2023-04-26] MEDS: NOVOLOG FLEXPEN-MODERATE RESISTANCE 5 UNITS SC ×2 (11:39→17:36)
[2023-04-26 12:02] LABS: Folate 9.8 ng/ml (2.76-20); Vitamin B12 917 pg/ml (239-931)
[2023-04-26] MEDS: DUONEB 3 ML INH ×2 (13:00→21:31)
[2023-04-26 13:09] LABS: COVID-19 Antigen Negative (Negative)
[2023-04-26 14:06] LABS: Free T4 1.27 ng/dl (0.78-2.19)
[2023-04-26 14:56] LABS: Glucose - Point of Care 246 mg/dl (70-99)
--- NOTE | 2023-04-26 15:06 | W.PN.UPDATE ---
Update Note
Progress Note Update
GRAIN [employer]IL[employer] called
Patient have been minimally responsive
CT head and MRI brain neg for any structural problems
Not on sedative medication
ABG in morning showing hypercapnia and Bipap/IMU transfer ordered but no bed available
Patient will get an emergent bed assignment and initiation of BiPAP therapy.
Recheck ABG in 4 hrs after bipap rx
--- NOTE | 2023-04-26 15:15 | PTCARENOTE ---
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 Pt arrived with Bipap 15/7 w/15lters oxygen. His eyes were closed and he was unresponsive. Left upper arm #22g protective catheter with 0.9nss@200ml/hr. Left hand #20g protective catheter flushed and patent.
+pulses, no edema. Skin warm pale. He is flacid. Full CHG bath given on arrival. After about 15 minutes on the unit her opened his eyes during assessment. He remains drowsy at this time. He was informed of the plan of care and that he is in the ICU
now. Lungs diminished in the bases, right worse than the left. Scattered expiratory wheeze. +BSx4. Condom catheter with yellow urine. Safe environment maintained. Will continue to monitor.
--- NOTE | 2023-04-26 15:56 | CON.ID ---
Consultation
-
Date/Time Consultation Requested: 04/26/2023 07:36
Date/Time Consultation Performed: 04/22/2023 15:30
Requesting Provider: Dr. Oates
Performing Provider: Dr. Metcalf
Reason for Consultation: Fever; pneumonia
Chief Complaint / Past History
History of Present Illness
Oren Velazquez is a 62-year-old male with a significant past medical history of schizophrenia being seen at the request of Dr. Oates in regards to fever and pneumonia. History is obtained from chart review as the patient was found to be a very
poor historian.
The patient presents to [facility] on 04/24/2023 from a alf for evaluation of shortness of breath. According to reviewed records, the patient was noted to have new shortness of breath. In the ER he denied having any cough, but was
having congestion. He was found to require 2 L of oxygen in the ER and was found to have a temperature. He was started on empiric antibiotics. Today patient was found to be less responsive and has been transferred to the intensive care unit.
No further history available from the patient.
Past History
Additional Past Medical History:
Schizophrenia
COPD
GERD
Hypothyroidism
HTN
Additional Past Surgical History:
Unavailable
Allergy History:
No Known Allergies Allergy (Verified 11/26/20 09:35)
Medications Reviewed: Yes
Current Antibiotics:
Zosyn
Vancomycin
Social History
Tobacco: Other (Unknown)
Alcohol: Other (Unknown)
Drug: Other (Unknown)
Personal: Single
Living: Other ([facility])
Employment: Not Employed
Review of Systems
Vital Signs
Temp Pulse Resp BP Pulse Ox
100.7 F H 92 21 148/78 98
04/26/23 15:51 04/26/23 15:45 04/26/23 15:45 04/26/23 15:45 04/26/23 15:51
Physical Exam
Physical Exam
Constitutional: Acutely Ill, Chronically Ill and Non-toxic
Head: Normocephalic
Eyes: Pupils Equal, Pupils Round, No Conjunctival Hemorrhage and Sclera Anicteric
Pharynx: Other (BiPAP in place.)
Oral: No Thrush and No Ulcers
Cardiovascular: S1/S2; Negative S3/S4 or Murmur
Pulmonary: Wheezes and Coarse
Gastrointestinal: Soft, Non Tender, Non Distended, No Rebound and No Guarding
Extremities: Negative Edema, Cyanosis, Erythema or Splinter Hemorrhage
Neurological: Other (Very somnolent; minimally arousable. Responsive to touch and noxious stimuli.)
Psychological: Negative Agitated
.
Lab / Diagnostic Study Results
04/26/23 05:32
04/26/23 05:32
Abs Immat Gran (auto) 0.2 10^3/uL (0-0.05) H 04/24/23 08:58
Absolute Neuts (auto) 3.0 10^3/uL (1.4-6.5) 04/24/23 08:58
Absolute Lymphs (auto) 0.5 10^3/uL (1.2-3.4) L 04/24/23 08:58
Absolute Monos (auto) 1.4 10^3/uL (0.1-0.6) H 04/24/23 08:58
Absolute Basos (auto) 0.0 10^3/uL (0-0.2) 04/24/23 08:58
Total Counted 100 04/24/23 08:58
Immature Gran % 3.1 % (0-0.5) H 04/24/23 08:58
Neutrophils % 59.6 % (42.2-75.2) 04/24/23 08:58
Lymphocytes % 9.8 % (20.5-51.1) L 04/24/23 08:58
Monocytes % 26.9 % (1.7-9.3) H 04/24/23 08:58
Eosinophils % 0.0 % (0-6) 04/24/23 08:58
Basophils % 0.6 % (0-2) 04/24/23 08:58
Abs Neuts (Manual) 3.0 10^3/uL (1.4-6.5) 04/24/23 08:58
Segmented Neutrophils 58 % (42-75) 04/24/23 08:58
Band Neutrophils 1 % (0-3) 04/24/23 08:58
Lymphocytes (Manual) 26 % (20-51) 04/24/23 08:58
ESR 43 mm/hour (0-20) H 04/26/23 05:32
Lactic Acid Cancelled 04/25/23 01:01
Microbiology Results
Micro:
04/24/23 16:41 MRSA Screen - Preliminary
Nose Culture in Progress
04/24/23 07:28 Blood Culture - Preliminary
Blood/Venous No Growth in 48 hours- Final report to follow
04/24/23 07:15 Blood Culture - Preliminary
Blood/Venous No Growth in 48 hours- Final report to follow
04/25/23 16:19 Blood Culture - Pending
Blood/Venous
04/24/23 07:00 Influenza Types A & B (CELINA) - Final
Nasal Swab Negative for Influenza A & B, NAAT
Negative results must be combined with clinical observations
and patient history.
Nucleic Acid Amplification test (NAAT)performed on the
[employer] platform.
Imaging:
04/22/2023 CXR (portable): There is persistent right base opacity consistent with pneumonia. This is slightly worsened from a prior CXR. There is increased stranding in the right upper lung zone. Findings most consistent with right upper and right
lower lobe pneumonia. Please see full dictation for additional detail. Film personally viewed.
Assessment / Plan
Right-sided pneumonia
Encephalopathy
Fever
Respiratory failure; now on BiPAP
Schizophrenia
COPD
GERD
Hypothyroidism
HTN
Recommendations:
Continue with empiric Zosyn and vancomycin.
Await MRSA screen; if negative can discontinue further vancomycin.
Aspiration precautions.
Monitor white count and temperature curve.
Continue with supportive measures.
Sputum culture if obtainable.
Follow CXR.
--- NOTE | 2023-04-26 16:31 | PTCARENOTE ---
IVF capped as ordered.
--- NOTE | 2023-04-26 16:53 | CON.PUL ---
Consultation
Consultation Request
Date/Time Consultation Requested: 04-26-23
Date/Time Consultation Performed: 04-26-23
Requesting Provider: Hospitalist
Performing Provider: Dr Raman
Reason for Consultation: dyspnea
Medical History
-
Chief Complaint: dyspnea
History of Present Illness:
Mr Oren Velazquez is a 62/M adm 04-24 with dyspnea, sent from alf, baseline limited historian (schizophrenia [on divalproex, fanapt, olanzapine, hydroxyzine], COPD on alb HFA/DNs/prn O2, GERD, hypothyroidism, HTN).
Febrile and hypoxic at ER, started on O2, suspected pneumonia/AECOPD, started on ceftriaxone/azithromycin, prednisone. On 04-26 presented minimal responsiveness, L facial weakness, and respiratory acidosis, mental status cleared by the time seen in
consult by Neurology, loaded with depakote as did not receive it this adm (no clear reason for outpatient use of depakote), negative spot EEG.
Pulm consulted late this morning, then consult cancelled as patient presented interim improvement of MS. 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
initiation
Past Medical History
Past Medical History: Other (see A&P for PMH/PSH)
Social History
Tobacco: Former Smoker
Environmental Exposures: Soc H, unable to obtain otherwise due to obtundation
Family History
Family History: Unable to Obtain
Allergies / Home Medications
Allergies
Allergy/AdvReac Type Severity Reaction Status Date / Time
No Known Allergies Allergy Verified 11/26/20 09:35
Home Medications
Medication Instructions Recorded Confirmed Last Taken Type
aluminum-mag hydroxide-simethicone 30 ml PO DAILYPRN PRN indigestion 10/12/18 04/24/23 04/17/23 History
200 mg-200 mg-20 mg/5 mL oral susp
(Mag-Al Plus)
atenolol 25 mg tablet 25 mg PO DAILY Blood pressure 10/12/18 04/24/23 04/23/23 History
sitagliptin phosphate 100 mg 100 mg PO DAILY Diabetes 10/12/18 04/24/23 04/23/23 History
tablet (Januvia)
cyanocobalamin (vitamin B-12) 500 mcg PO DAILY Supplement 07/08/19 04/24/23 04/23/23 History
1,000 mcg tablet
divalproex 250 mg tablet,delayed 250 mg PO BID total dose 1250mg BID 07/08/19 04/24/23 04/23/23 History
release
fexofenadine 180 mg tablet 180 mg PO DAILY Allergies 07/08/19 04/24/23 04/23/23 History
iloperidone 12 mg tablet (Fanapt) 12 mg PO DAILY@1999 schizoprenia 07/08/19 04/25/23 04/23/23 History
levothyroxine 200 mcg tablet 200 mcg PO DAILY AT 0700 Thyroid 07/08/19 04/24/23 04/23/23 History
lisinopril 2.5 mg tablet 2.5 mg PO DAILY Blood pressure 07/08/19 04/24/23 04/23/23 History
divalproex 500 mg tablet,delayed 1,000 mg PO BID total 1250mg BID 11/26/20 04/24/23 04/23/23 History
release
hydroxyzine HCl 25 mg tablet 50 mg PO HS Mental Health/Anxiety 11/26/20 04/24/23 04/23/23 History
olanzapine 10 mg tablet 20 mg PO DAILY@1999 Mental 11/26/20 04/25/23 04/23/23 History
Health/Anxiety
acetaminophen 325 mg tablet 650 mg PO Q4H PRN mild pain, fever 04/24/23 04/24/23 04/11/23 History
(Tylenol)
albuterol sulfate 90 mcg/actuation 2 puff inhalation Q4HPRN PRN 04/24/23 04/24/23 04/23/23 History
aerosol inhaler shortness of breath
atorvastatin 20 mg tablet 20 mg PO DAILY High Cholesterol 04/24/23 04/24/23 04/23/23 History
insulin aspart U-100 100 unit/mL 0 - 14 unit SC AC Diabetes 04/24/23 04/24/23 Unknown History
(3 mL) subcutaneous pen (Novolog
FlexPen U-100 Insulin aspart)
ipratropium 0.5 mg-albuterol 3 mg 3 ml inhalation Q4H PRN SOB/ 04/24/23 04/24/23 Unknown History
(2.5 mg base)/3 mL nebulization wheezing
soln
metformin 500 mg tablet 500 mg PO BID@0800,1700 Diabetes 04/24/23 04/25/23 04/23/23 History
omeprazole 20 mg tablet,delayed 20 mg PO DAILY Gastrointestinal 04/24/23 04/24/23 04/23/23 History
release Issue
glucose 4 gram chewable tablet 16 g PO ONCE PRN BS<70 04/25/23 04/25/23 Unknown History
(TRUEplus Glucose)
polyethylene glycol 3350 17 gram 17 g PO DAILY PRN constipation 04/25/23 04/25/23 Unknown History
oral powder packet (Miralax)
Review of Systems
-
Unable to Obtain full review of systems at this time due to: Acuity and Other (lethargy, significant)
Vitals / Labs / Diagnostic Testing
Vital Signs
Temp Pulse Resp BP Pulse Ox
100.7 F H 92 21 148/78 98
04/26/23 15:51 04/26/23 15:45 04/26/23 15:45 04/26/23 15:45 04/26/23 15:51
Lab Data
04/26/23 05:32
04/26/23 05:32
Laboratory Results
04/26/23
10:57
pH 7.33 L
pCO2 83 H*
pO2 70 L
HCO3 43.8 H*
O2 Delivery Level
Microbiology
04/25/23 16:19 Blood/Venous Blood Culture - Preliminary
No Growth in 24 hours- Final report to follow
04/24/23 16:41 Nose MRSA Screen - Preliminary
Culture in Progress
04/24/23 07:28 Blood/Venous Blood Culture - Preliminary
No Growth in 48 hours- Final report to follow
04/24/23 07:15 Blood/Venous Blood Culture - Preliminary
No Growth in 48 hours- Final report to follow
04/24/23 07:00 Nasal Swab Influenza Types A & B (CELINA) - Final
Negative for Influenza A & B, NAAT
Negative results must be combined with clinical observations
and patient history.
Nucleic Acid Amplification test (NAAT)performed on the
[employer] platform.
Diagnostic Testing:
Physical Exam
-
HEENT: Normocephalic and Other (FF BPAP)
Cardiovascular: Regular Rhythm, Murmur (n) and Peripheral Edema
Respiratory: Wheeze (n), Rales (basilar) and Non-Labored Respirations
GI: Soft and Non Distended
Neurology: Other (lethargic, limited response to noxious stimuli, nonfocal)
Skin: Dry
Assessment
-
Assessment:
Mr Oren Velazquez is a 62/M adm 04-24 with dyspnea, sent from alf, baseline limited historian (schizophrenia [on divalproex, fanapt, olanzapine, hydroxyzine], COPD on alb HFA/DNs/prn O2, GERD, hypothyroidism, HTN). Febrile and hypoxic at ER,
started on O2, suspected pneumonia/AECOPD, started on ceftriaxone/azithromycin, prednisone. On 04-26 presented minimal responsiveness, L facial weakness, and respiratory acidosis, mental status cleared by the time seen in consult by Neurology,
loaded with depakote as did not receive it this adm (no clear reason for outpatient use of depakote), negative spot EEG. Pulm consulted late this morning, then consult cancelled as patient presented interim improvement of MS. 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
afternoon at 3 pm for recurrent minimal responsiveness, worsening resp acidosis on ABG, pulm reconsulted, moved to IMU for BPAP initiation
Impression:
R basilar pneumonia
Chronic elevation of total serum CO2 since at least 2018
Recurrent respiratory acidosis, probably compounded by use of psychiatric meds and acute illness
COVID/flu negative
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
COVID pneumonia, adm July 2019, required brief intubation
Developmental delay
Schizophrenia
COPD
GERD
Hypothyroidism
HTN
DM
KATTY
BPH
Obesity
Former smoker
Plan:
Transferred to IMU for worsening mentation and resp acidosis
Housed at ICU for the time being
Started on BPAP 15/7 cwp with O2 15L, ABG after 1h30m on BPAP with worsening resp acidosis
On above settings at time of visit, POx 98%, remains barely responsive to noxious stimuli
Adjusted BPAP to 20/7, dropped O2 to 5L, will titrate for comfort and POx 88-92%
Adjusted BPAP mask to decrease unintentional leak, currently using L mask size which appears small for patient's anatomy (but largest size available at )
D/w RT, to check ABG in 3 hrs from now, will need NIV vs invasive ventilation if no improvement in MS and acidosis
Check UDS
No meningeal signs to suspect meningitis
Noted Neurology consultation, negative spot EEG, loaded with valproate as he did not receive his outpatient dosing
R basilar pneumonia
Continue empiric atbs: zosyn and vancomycin which started on adm
ID following
Check UAgs for strep and legionella
Follow blood cxs, at this time unable to obtain sputum cx
Reportedly wheezing upon adm
Continue systemic CS for suspected AECOPD: change prednisone to MP 40 mg IV q12
Change prn DNs to qid and prn
Change all possible meds to IV for the time being
Rec holding psychotropic drugs for now
DVT proph, enoxaparin
D/w RN and RT
D/w Dr Oates
Diagnostic tests:
CXR 04-26-23 c/w and Nov 2020: Baseline film mildly rotated with no infiltrates. Current films with progressive R basilar infiltrate
Brain CT and MRI 04-25 and respectively. Mild increase in chronic distension of ventricular system (suspected colpocephaly vs normal pressure hydrocephalus). No acute findings
[2023-04-26 17:00] LABS: B.E. 13.6 mmol/L; PO2 85 mmHg (83-108); pH 7.28 (7.35-7.45)
[2023-04-26 17:01] LABS: HCO3 43.7 mmol/L (21-28); PCO2 93 mmHg (35-48)
[2023-04-26 17:13] LABS: Glucose - Point of Care 298 mg/dl (70-99)
--- NOTE | 2023-04-26 17:15 | PTCARENOTE ---
Dr. Hayward notified via TT of recent ABG, then Dr. Raman just so happen to be in pt room. He too was informed of the recent ABG result. BiPap changed made as ordered with Respiratory therapist present at the time and other orders placed by .
[2023-04-26] MEDS: ATARAX PO (17:37)
[2023-04-26] MEDS: LOVENOX 40 MG SC (17:38)
[2023-04-26] MEDS: VANCOCIN 300 MG IV (18:29)
[2023-04-26] MEDS: VANCOCIN 300 ML IV (18:29)
[2023-04-26 19:11] LABS: Amphetamines Negative (Negative); Barbiturates Negative (Negative); Benzodiazepines Negative (Negative); Buprenorphine Negative (Negative); Cocaine Negative (Negative); Marijuana Negative (Negative); Methadone Negative (Negative); Methamphetamines Negative (Negative); Opiates Negative (Negative); Phencyclidine Negative (Negative); Tricyclic Antidepressants Negative (Negative)
[2023-04-26] MEDS: LOPRESSOR 5 MG IV (20:22)
[2023-04-26] MEDS: DEPAKOTE (12 HR RELEASE) PO ×2 (20:46)
[2023-04-26] MEDS: NON-FORMULARY ITEM PO (20:47)
[2023-04-26] MEDS: SOLU-MEDROL PF 40 MG IV (20:48)
--- NOTE | 2023-04-26 21:00 | PTCARENOTE ---
rec`d pt at 1900. drowsy but awakens to verbal stimuli. pt cannot state his own name or birthday... he chooses not to. SR on monitor. no edema. pt BP kept increasing. RN notified hospitalist. 1x dose of Lopressor was given. Lt upper 22G and Lt hand
20PT on BIPAP. settings...20/7 w/ 6L. lung sounds diminished. BSx4. condom cath size 21 draining yellow urine. call mullins in reach. safe environment maintained. bed alarm on.
[2023-04-26] MEDS: DEPACON 62.5 MG IV (21:12)
[2023-04-26] MEDS: ZYPREXA 10 MG IM (21:20)
[2023-04-26] MEDS: STERILE WATER FOR INJECTION 2.10000000000000009 ML IM (21:21)
[2023-04-26 21:29] LABS: B.E. 16.1 mmol/L; O2 Saturation % 90.9 % (94-98); pH 7.37 (7.35-7.45)
[2023-04-26 21:31] LABS: HCO3 44.5 mmol/L (21-28); PCO2 77 mmHg (35-48); PO2 58 mmHg (83-108)
[2023-04-26 21:46] LABS: Glucose - Point of Care 199 mg/dl (70-99)
[2023-04-26 23:50] LABS: Glucose - Point of Care 177 mg/dl (70-99)
[2023-04-27] VITALS (38 sets, daily range): BP systolic 95–162; BP diastolic 54–101; PULSE 2–88; BMI 31.7
[2023-04-27] MEDS: ZOSYN 100 IV ×4 (01:11→19:41)
--- NOTE | 2023-04-27 03:30 | PTCARENOTE ---
pt complaining of needing to use bathroom. pt educated that he has a condom cath in place. Pt then proceeded to take condom cath off. RN bladder scanned pt. scanned for 700cc. RN then straight cathed pt and got 800cc. pt now back to sleep. safe
environment.
[2023-04-27 03:56] LABS: Hematocrit 34.2 % (39.0-52.0); Mean Corp Hgb Conc. 32.2 g/dL (33.0-37.0); Mean Corpuscular Hgb 32.5 pg (27.0-31.0); Mean Corpuscular Volume 101.2 fL (80.0-94.0); Mean Platelet Volume 9.5 fL (7.4-10.4); Platelet Count 188 10^3/uL (130-400); Red Blood Cell Count 3.38 10^6/uL (4.70-6.10); Red Cell Dist. Width 13.2 % (11.5-14.5); White Blood Cell Count 4.1 10^3/uL (4.8-10.8)
[2023-04-27 04:19] LABS: Blood Urea Nitrogen 25 mg/dl (9-20); Calcium 8.6 mg/dl (8.4-10.2); Carbon Dioxide 37 mmol/L (22-30); Chloride 93 mmol/L (98-107); Estimated Creatinine Clearance 101 ml/min; Glucose 224 mg/dl (70-99); Potassium 4.2 mmol/L (3.5-5.1); Sodium 139 mmol/L (135-145); eGFR > 60.00
[2023-04-27] MEDS: SYNTHROID PO (06:01)
[2023-04-27] MEDS: VANCOCIN 300 MG IV ×2 (06:05→17:52)
[2023-04-27] MEDS: VANCOCIN 300 ML IV ×2 (06:05→17:52)
[2023-04-27 06:07] LABS: Glucose - Point of Care 221 mg/dl (70-99)
[2023-04-27] MEDS: CLARITIN 10 MG PO (07:25)
[2023-04-27] MEDS: DEPAKOTE (12 HR RELEASE) 1000 MG PO ×2 (07:26→19:42)
[2023-04-27] MEDS: SOLU-MEDROL PF 40 MG IV ×2 (07:26→19:51)
[2023-04-27] MEDS: PROTONIX 40 MG PO (07:26)
[2023-04-27] MEDS: DEPAKOTE (12 HR RELEASE) 250 MG PO ×2 (07:26→19:42)
[2023-04-27] MEDS: LIPITOR 20 MG PO (07:26)
[2023-04-27] MEDS: DUONEB 3 ML INH (07:40)
[2023-04-27] MEDS: NOVOLOG FLEXPEN-MODERATE RESISTANCE 5 UNITS SC ×3 (07:47→17:01)
[2023-04-27 07:52] LABS: Glucose - Point of Care 260 mg/dl (70-99)
[2023-04-27 07:54] LABS: B.E. 14.2 mmol/L; O2 Saturation % 97.9 % (94-98); PO2 88 mmHg (83-108); pH 7.37 (7.35-7.45)
[2023-04-27 07:56] LABS: HCO3 42.2 mmol/L (21-28); PCO2 73 mmHg (35-48)
--- NOTE | 2023-04-27 07:58 | PTOTSP ---
chart reviewed, noted pt transferred to IMU level of care after rapid response. will require new PT/OT orders once pt is medically stable. will continue to monitor.
--- NOTE | 2023-04-27 08:33 | W.PN.PUL3 ---
Today's Communication / Plan
-
O2
BPAP as needed
Atbs
MP
Levalbuterol
HR control
Assessment
-
Assessment:
Mr Oren Velazquez is a 62/M adm 04-24 with dyspnea, sent from nursing home, baseline limited historian (schizophrenia [on divalproex, fanapt, olanzapine, hydroxyzine], COPD on alb HFA/DNs/prn O2, GERD, hypothyroidism, HTN). Febrile and hypoxic at ER,
started on O2, suspected pneumonia/AECOPD, started on ceftriaxone/azithromycin, prednisone. On 04-26 presented minimal responsiveness, L facial weakness, and respiratory acidosis, mental status cleared by the time seen in consult by Neurology,
loaded with depakote as did not receive it this adm (no clear reason for outpatient use of depakote), negative spot EEG. Pulm consulted late this morning, then consult cancelled as patient presented interim improvement of MS. 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
afternoon at 3 pm for recurrent minimal responsiveness, worsening resp acidosis on ABG, pulm reconsulted, moved to IMU for BPAP initiation
Impression:
R basilar pneumonia
Chronic elevation of total serum CO2 since at least 2018
Recurrent respiratory acidosis, probably compounded by use of psychiatric meds and acute illness
COVID/flu negative
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
COVID pneumonia, adm DH July 2019, required brief intubation
Developmental delay
Schizophrenia
COPD
GERD
Hypothyroidism
HTN
DM
KATTY
BPH
Obesity
Former smoker
Plan:
Transferred to IMU for worsening mentation and resp acidosis
Housed at ICU for the time being
Started on BPAP 15/7 cwp with O2 15L, ABG after 1h30m on BPAP with worsening resp acidosis
On above settings at time of visit, POx 98%, remains barely responsive to noxious stimuli
Adjusted BPAP to 20/7, dropped O2 to 5L, will titrate for comfort and POx 88-92%
Adjusted BPAP mask to decrease unintentional leak, currently using L mask size which appears small for patient's anatomy (but largest size available at )
Interim improvement of respiratory acidosis and MS (relatively speaking given h/o schizophrenia): now compensated pH
Tolerated BPAP until this morning, then agitated, BPAP held, started on O2 4L, ABG showed compensated resp acidosis
Checked UDS: negative
No meningeal signs to suspect meningitis
Noted Neurology consultation, negative spot EEG, loaded with valproate as he did not receive his outpatient dosing
R basilar pneumonia
Continue empiric atbs: zosyn and vancomycin which started on adm
MRSA screening positive
ID following
Checked UAgs for strep and legionella: negative
Follow blood cxs (remain negative), at this time unable to obtain sputum cx
Reportedly wheezing upon adm
Continue systemic CS for suspected AECOPD: changed prednisone to MP 40 mg IV q12, continue
Change prn DNs to levalbuterol tid and prn (*)
(*)New onset tachycardia in high 100s but no hypotension
IV metoprolol now
Rec psychiatry consultation
DVT proph, enoxaparin
D/w Dr Oates
Diagnostic tests:
CXR 04-26-23 c/w and Nov 2020: Baseline film mildly rotated with no infiltrates. Current films with progressive R basilar infiltrate
Brain CT and MRI 04-25 and respectively. Mild increase in chronic distension of ventricular system (suspected colpocephaly vs normal pressure hydrocephalus). No acute findings
Subjective Data
-
Date of Service:
Date of Service: April 27, 2023
Chief Complaint: Pulmonary Follow Up
Subjective:
No major events overnight
BPAP settings adjusted, corrected decompensated resp acidosis, woke up
Agitated
New onset severe tachycardia but no hypotension
Review of Systems
General: Other (agitation)
Objective Data
Data Reviewed
Vital Signs / I&O / Oxygen:
Vital Signs
Temp Pulse Resp BP Pulse Ox
98.1 F 64 20 142/94 91
04/27/23 07:51 04/27/23 04:45 04/27/23 04:45 04/27/23 02:45 04/27/23 04:45
Intake and Output
04/26/23 04/27/23 04/28/23
06:59 06:59 06:59
Intake Total 660 / 660
Output Total 950 / 950 700 / 700
Balance -950 / -950 -40 / -40
SaO2 91
Nasal Cannula flow liters per 5
minute
Physical Exam
General: Respiratory Distress
HEENT: Normocephalic and Moist Mucous Membranes
Cardiovascular: Regular Rhythm (tachycardic), JVD (n) and Peripheral Edema (trace CECILY edema)
Respiratory: Wheeze (n), Crackles (R base), Rhonchi (trace), Accessory Resp Muscle Use and Stridor (n)
GI: Soft and Non Distended
Neurology: Awake, No Motor Deficits, Other (agitated) and Other (soft restrains)
Skin: Dry
Labs/Micro/Reports
Lab Data
04/27/23 03:33
04/27/23 03:33
Laboratory Results
04/26/23 04/26/23 04/26/23
10:57 16:50 21:23
pH 7.33 L 7.28 L 7.37
pCO2 83 H* 93 H* 77 H*
pO2 70 L 85 58 L*
HCO3 43.8 H* 43.7 H* 44.5 H*
O2 Delivery Level
04/27/23 04/27/23
06:00 07:46
pH Cancelled 7.37
pCO2 Cancelled 73 H*
pO2 Cancelled 88
HCO3 Cancelled 42.2 H*
O2 Delivery Level Cancelled
Microbiology
04/24/23 07:28 Blood/Venous Blood Culture - Preliminary
No Growth in 72 hours- Final report to follow
04/24/23 07:15 Blood/Venous Blood Culture - Preliminary
No Growth in 72 hours- Final report to follow
04/26/23 17:57 Urine Legionella Urinary Antigen - Final
Negative for Legionella pneumophila Serogroup 1 antigen.
A negative result does not rule out the possiblity of
Legionella infection due to other serogroups or species of
Legionella. Clinical correlation is recommended.
04/26/23 17:57 Urine Streptococcus pneumoniae Antigen (M - Final
Negative for Streptococcus pneumoniae antigen.
A negative result does not exclude infection with
Streptococcus pneumoniae. Clinical correlation is
recommended.
04/25/23 16:19 Blood/Venous Blood Culture - Preliminary
No Growth in 24 hours- Final report to follow
04/24/23 16:41 Nose MRSA Screen - Preliminary
Culture in Progress
04/24/23 07:00 Nasal Swab Influenza Types A & B (CELINA) - Final
Negative for Influenza A & B, NAAT
Negative results must be combined with clinical observations
and patient history.
Nucleic Acid Amplification test (NAAT)performed on the
[employer] platform.
--- NOTE | 2023-04-27 08:47 | PTOTSP ---
Chart reviewed; patient transferred to ICU after rapid response. PT orders not continued upon transfer.
PT will require restart orders when medically appropriate.
[2023-04-27] MEDS: LOPRESSOR 5 MG IV (08:56)
[2023-04-27] MEDS: CARDIZEM 125 IV ×2 (08:56→17:52)
--- NOTE | 2023-04-27 09:20 | PTCARENOTE ---
report received, assessments per work list. frequent cough, non productive. poor short term memory, no recall. lungs with coarse breath sounds, expiratory wheezes. abdomen soft. patient fighting with wrist restraints, with restraints off, patient
calmer, but requires 1:1 observation. ate 100% breakfast. patient then went into rapid Afib, heart rate 190-200. Hospitalist notified, at bedside. Lopressor given Cardizem gtt initiated. patient repeatedly asking to urinate, unable. bladder scan as
per work list. orders from hospitalistJenni inserted without issue
--- NOTE | 2023-04-27 09:20 | PHA.VAN.FU ---
Vancomycin Assessment / Plan
- Assessment
Renal Function: Stable
WBC's are: Stable
In the past 24 hrs, patient has been: Febrile
Concomitant Antimicrobials: piperacillin/tazobactam
- Dosing Plan
Continue: Vanc 1500mg Q12H
- Monitoring Plan
Peak Level: 04/27 21:00
Trough Level: 04/28 05:30
Monitoring Comments: levels to be drawn after 3rd maintenance dose
- Follow Up
Pharmacy will continue to follow.
Vancomycin Follow UP
- -
Patient Age: 62
Patient Sex: Male
Vancomycin Day #: 2
Indication: Other
Requesting Provider: Dr. Zachary Oates / [place]
Pertinent Antimicrobial Allergies:
NKDA
Height / Weight:
Height 5 ft 7 in
Actual Weight 91.8 kg
Pertinent Past Medical History: BMI ~32
- Vital Signs / Lab Results
Temp Pulse Resp BP Pulse Ox
98.1 F 152 27 95/74 92
04/27/23 07:51 04/27/23 09:00 04/27/23 09:00 04/27/23 09:00 04/27/23 08:46
Lab Results - Hematology
04/24/23 04/25/23 04/26/23
08:58 06:03 05:32
WBC 5.1 3.8 L 3.3 L
Band Neutrophils 1
04/27/23
03:33
WBC 4.1 L
Band Neutrophils
Lab Results - Chemistry
04/25/23 04/26/23 04/27/23
06:03 05:32 03:33
BUN 23 H 19 25 H
Creatinine 0.7 0.7 0.8
Estimated Creat Clear 116 116 101
Albumin 2.9 L 2.8 L
04/24/23 04/24/23 04/24/23
13:17 17:01 21:01
Lactic Acid 1.0 Cancelled Cancelled
04/25/23
01:01
Lactic Acid Cancelled
Microbiology Results
04/24/23 16:41 MRSA Screen - Final
Nose Staph aureus MRSA
04/24/23 07:28 Blood Culture - Preliminary
Blood/Venous No Growth in 72 hours- Final report to follow
04/24/23 07:15 Blood Culture - Preliminary
Blood/Venous No Growth in 72 hours- Final report to follow
04/26/23 17:57 Legionella Urinary Antigen - Final
Urine Negative for Legionella pneumophila Serogroup 1 antigen.
A negative result does not rule out the possiblity of
Legionella infection due to other serogroups or species of
Legionella. Clinical correlation is recommended.
Streptococcus pneumoniae Antigen (M - Final
Negative for Streptococcus pneumoniae antigen.
A negative result does not exclude infection with
Streptococcus pneumoniae. Clinical correlation is
recommended.
04/25/23 16:19 Blood Culture - Preliminary
Blood/Venous No Growth in 24 hours- Final report to follow
--- NOTE | 2023-04-27 09:51 | CON.CAR ---
Addendum entered and electronically signed by Abdulkadir Reinoso MD 04/27/23 12:16:
I saw and examined the patient.
The [employer]'s note was reviewed and I agree with the note.
62-year-old male with history of schizophrenia, COPD hypertension diabetes who presented with shortness of breath cough fever and hypoxemia. Patient also with change in mental status. Patient had hypercapnia and had to be treated with BiPAP.
Chest x-ray notable for pneumonia. Today patient developed A-fib with RVR patient with no prior cardiac history. Placed on IV Cardizem drip with additional rate control interventional spontaneous conversion back to sinus rhythm. Currently in
sinus rhythm. Oriented to hospital but did not know which hospital or why he was here. Wheezing on exam
-Treatment of COPD and pneumonia as directed by hospitalist
-Continue with Cardizem for now and will monitor for recurrent A-fib.
-[id number] score is 2 for HTN and DM. Not clear the patient would be a good anticoagulation candidate. Would hold off anticoagulation at this time. Isolated episode of A-fib in the setting of pneumonia, COPD exacerbation etc. Will observe for
recurrence.
-Echo
-
Original Note:
Consultation
Consultation Request
Date/Time Consultation Requested: 04/27/23 0859
Date/Time Consultation Performed: 04/27/23 0940
Requesting Provider: Dr. Oates
Performing Provider: Mayra GARCIA for Dr. Reinoso
Reason for Consultation: AFIB with RVR
Medical History
-
Chief Complaint: SOB
History of Present Illness:
62 y/o male with schizophrenia, COPD, hypothyroidism, HTN, DM who is here for evaluation from his intermediate for SOB, cough, fever, and hypoxia, requiring O2 by AR. He is being treated for PNA. Change in MS noted this admit, and patient with
hypercapnia requiring BiPAP temporarily. We are consulted due to AFIB with RVR. He is not symptomatic. He was given IV BB and is now on a diltiazem drip, which nursing will titrate- BP stable. He is a very poor historian and HPI obtained from chart.
He is in no distress at the time of my assessment.
Past Medical History
Past Medical History: COPD, HTN, Hypothyroidism, NIDDM and Psychiatric (schizophrenia)
Social History
Living: Other (intermediate)
Family History
Family History: Unable to Obtain
Allergies / Home Medications
Allergy/AdvReac Type Severity Reaction Status Date / Time
No Known Allergies Allergy Verified 11/26/20 09:35
Medication Instructions Recorded Confirmed Type
aluminum-mag hydroxide-simethicone 30 ml PO DAILYPRN PRN indigestion 10/12/18 04/24/23 History
200 mg-200 mg-20 mg/5 mL oral susp
(Mag-Al Plus)
atenolol 25 mg tablet 25 mg PO DAILY Blood pressure 10/12/18 04/24/23 History
sitagliptin phosphate 100 mg 100 mg PO DAILY Diabetes 10/12/18 04/24/23 History
tablet (Januvia)
cyanocobalamin (vitamin B-12) 500 mcg PO DAILY Supplement 07/08/19 04/24/23 History
1,000 mcg tablet
divalproex 250 mg tablet,delayed 250 mg PO BID total dose 1250mg BID 07/08/19 04/24/23 History
release
fexofenadine 180 mg tablet 180 mg PO DAILY Allergies 07/08/19 04/24/23 History
iloperidone 12 mg tablet (Fanapt) 12 mg PO DAILY@1999 schizoprenia 07/08/19 04/25/23 History
levothyroxine 200 mcg tablet 200 mcg PO DAILY AT 0700 Thyroid 07/08/19 04/24/23 History
lisinopril 2.5 mg tablet 2.5 mg PO DAILY Blood pressure 07/08/19 04/24/23 History
divalproex 500 mg tablet,delayed 1,000 mg PO BID total 1250mg BID 11/26/20 04/24/23 History
release
hydroxyzine HCl 25 mg tablet 50 mg PO HS Mental Health/Anxiety 11/26/20 04/24/23 History
olanzapine 10 mg tablet 20 mg PO DAILY@2000 Mental 11/26/20 04/25/23 History
Health/Anxiety
acetaminophen 325 mg tablet 650 mg PO Q4H PRN mild pain, fever 04/24/23 04/24/23 History
(Tylenol)
albuterol sulfate 90 mcg/actuation 2 puff inhalation Q4HPRN PRN 04/24/23 04/24/23 History
aerosol inhaler shortness of breath
atorvastatin 20 mg tablet 20 mg PO DAILY High Cholesterol 04/24/23 04/24/23 History
insulin aspart U-100 100 unit/mL 0 - 14 unit SC AC Diabetes 04/24/23 04/24/23 History
(3 mL) subcutaneous pen (Novolog
FlexPen U-100 Insulin aspart)
ipratropium 0.5 mg-albuterol 3 mg 3 ml inhalation Q4H PRN SOB/ 04/24/23 04/24/23 History
(2.5 mg base)/3 mL nebulization wheezing
soln
metformin 500 mg tablet 500 mg PO BID@0800,1700 Diabetes 04/24/23 04/25/23 History
omeprazole 20 mg tablet,delayed 20 mg PO DAILY Gastrointestinal 04/24/23 04/24/23 History
release Issue
glucose 4 gram chewable tablet 16 g PO ONCE PRN BS<70 04/25/23 04/25/23 History
(TRUEplus Glucose)
polyethylene glycol 3350 17 gram 17 g PO DAILY PRN constipation 04/25/23 04/25/23 History
oral powder packet (Miralax)
Review of Systems
-
History Source: Other (chart)
All other systems: Negative unless noted
Respiratory: Trouble Breathing
Physical Exam
Vital Signs
Temp Pulse Resp BP Pulse Ox
98.1 F 152 27 95/74 92
04/27/23 07:51 04/27/23 09:00 04/27/23 09:00 04/27/23 09:00 04/27/23 08:46
Lab Results
04/27/23 03:33
04/27/23 03:33
Troponin I 0.029 ng/ml 04/24/23 07:38
Stm-F-Izuphtmnlzj Pept 132 pg/ml 04/24/23 07:38
Physical Exam
General: Well Developed, Well Nourished and No Apparent Distress
HEENT: Normocephalic and Anicteric
Respiratory: Wheezes and Other (on O2 by NC)
Cardiac: Irregular Rhythm (and tachycardia)
Skin: Warm and Dry
Neuro: Awake, Alert and Oriented (self only, and even that took prompting)
Psych: Calm
Impression / Plan
-
PNA:
-being treated with ABX
-on O2 by NC
COPD:
-wheezing to assessment, on breathing tx, pulm following
AFIB with RVR, paroxysmal:
-continue diltiazem drip for now (I changed order to allow for titration). This medication requires intensive monitoring for toxicity
-asymptomatic
-check echo when rate better controlled
-TSH WNL
-[id number] score is 2 for HTN and DM. Not clear to me if he will be good candidate for AC (don't know compliance, falls, habits, etc)
Data Reviewed
-
EKG: Tracing Personally Visualized and interpreted (AFIB with RVR 180 BPM)
Radiology: Report Reviewed by me (CXR: Right lower lobe pneumonia. Possible minimal right upper lobe pneumonia.)
Medical Tests (Nuc Med, Echo etc): Other (echo ordered)
Labs: Labs Reviewed by me
[2023-04-27] MEDS: STERILE WATER FOR INJECTION IV (10:10)
--- NOTE | 2023-04-27 10:27 | W.PN.ID1 ---
Date of Service
Date of Service: April 27, 2023
Today's Communication
Continue antibiotics
Assessment / Plan
Right-sided pneumonia
- CAP vs aspiration vs MRSA
Encephalopathy
- improved today
Fever
Respiratory failure; now off BiPAP
Schizophrenia
COPD
GERD
Hypothyroidism
HTN
Recommendations:
Continue with empiric Zosyn and vancomycin.
Aspiration precautions.
Monitor white count and temperature curve.
Continue with supportive measures.
Sputum culture if obtainable. Patient currently coughing, but finding it difficult to produce.
Follow CXR.
����������������������������������������������������������
Chief Complaint
-: Pneumonia (Right lower lobe)
Subjective / Review of Systems
Patient seen and examined. More awake today. Now in new atrial fibrillation. Nursing reports sputum production, but patient is finding it difficult to expectorate.
Review of Systems: Fever, Cough, Sputum Production, Chest Pain and Palpitations
Vital Signs / Physical Exam
Vital Signs
Vital Signs
Temp Pulse Resp BP Pulse Ox
98.1 F 166 19 118/73 92
04/27/23 07:51 04/27/23 10:00 04/27/23 10:00 04/27/23 10:00 04/27/23 10:13
Physical Exam
Constitutional: No Acute Distress, Comfortable, Chronically Ill and Non-toxic
Eyes: No Conjunctival Hemorrhage and Sclera Anicteric
Oropharyngeal: Poor Dention; Negative Thrush
Cardiovascular: S1/S2; Negative S3/S4 or Murmur
Pulmonary: Wheezes, Rhonchi (Right lower lobe), Non Labored and Other (Decreased breath sounds right side)
Gastrointestinal: Soft, Non Tender, Non Distended and Normal Bowel Sounds
Extremities: Edema; Negative Cyanosis or Erythema
Skin: Warm and Dry; Negative Rash or Jaundice
Neurological: Awake and Alert
Psychological: Calm
Objective Data
Lab Data
Lab Results
04/27/23 03:33
04/27/23 03:33
ESR 43 mm/hour (0-20) H 04/26/23 05:32
Estimated Creat Clear 101 ml/min 04/27/23 03:33
Lactic Acid Cancelled 04/25/23 01:01
Total Bilirubin 0.4 mg/dl (0.2-1.3) 04/26/23 05:32
AST 23 U/L (17-59) 04/26/23 05:32
ALT 18 U/L (0-50) 04/26/23 05:32
Alkaline Phosphatase 54 U/L (38-126) 04/26/23 05:32
Most recent labs reviewed.
Micro Results:
04/24/23 16:41 MRSA Screen - Final
Nose Staph aureus MRSA
04/24/23 07:28 Blood Culture - Preliminary
Blood/Venous No Growth in 72 hours- Final report to follow
04/24/23 07:15 Blood Culture - Preliminary
Blood/Venous No Growth in 72 hours- Final report to follow
04/26/23 17:57 Legionella Urinary Antigen - Final
Urine Negative for Legionella pneumophila Serogroup 1 antigen.
A negative result does not rule out the possiblity of
Legionella infection due to other serogroups or species of
Legionella. Clinical correlation is recommended.
Streptococcus pneumoniae Antigen (M - Final
Negative for Streptococcus pneumoniae antigen.
A negative result does not exclude infection with
Streptococcus pneumoniae. Clinical correlation is
recommended.
04/25/23 16:19 Blood Culture - Preliminary
Blood/Venous No Growth in 24 hours- Final report to follow
04/24/23 07:00 Influenza Types A & B (CELINA) - Final
Nasal Swab Negative for Influenza A & B, NAAT
Negative results must be combined with clinical observations
and patient history.
Nucleic Acid Amplification test (NAAT)performed on the
[employer] ID NOW platform.
Imaging:
04/22/2023 CXR (portable): There is persistent right base opacity consistent with pneumonia. This is slightly worsened from a prior CXR. There is increased stranding in the right upper lung zone. Findings most consistent with right upper and right
lower lobe pneumonia. Please see full dictation for additional detail. Film personally viewed.
--- NOTE | 2023-04-27 10:57 | PN.DE.MGMTRT ---
Insulin Management
- -
04/27/2023 Diabetes Management Consult
Patient admitted 04/24 with increasing SOB, pneumonia. PMH includes schizophrenia, HTN, hypothyroid, COPD, GERD. Prior to admission his diabetes medication included ss novolog ac, Januvia 100 mg daily, metformin 500 mg BID. A1C 8.5%, cr .8, egfr
>60.
Patient is awake and alert but confused. Glucose has been > 200.
Will restart metformin 500 mg BID first dose with dinner, and Januvia 100 mg daily first dose tomorrow. Will add lantus 10 units @ hs.
Discussed with patient Library Clerk [employer] who was with patient at time of my visit.
Diabetes History
- -
Type of Diabetes: 2
Pre-Admission Diabetes Regimen
04/27/23
03:33
Creatinine 0.8
Lab Results
Hemoglobin A1c 8.5 % (4.0-5.6) H 04/24/23 08:58
Insulin Pump Settings
IP Diabetes Regimen
04/26/23 04/26/23 04/26/23
11:36 14:47 17:01
Glucose
POC Glucose 252 H 246 H 298 H
04/26/23 04/26/23 04/27/23
21:34 23:38 03:33
Glucose 224 H
POC Glucose 199 H 177 H
04/27/23 04/27/23
05:56 07:41
Glucose
POC Glucose 221 H 260 H
Meal type: Breakfast
Amount consumed: 100%
Patient Education
--- NOTE | 2023-04-27 12:01 | PTCARENOTE ---
patient increasingly more agitated regarding gonzalez, repeatedly trying to remove. Hospitalist updated, orders received. gonzalez removed for patient safety. cardizem titration per work list, patient now in NSR
[2023-04-27 12:20] LABS: Glucose - Point of Care 267 mg/dl (70-99)
[2023-04-27] MEDS: FLOMAX 0.800000000000000044 MG PO (13:00)
[2023-04-27] MEDS: XOPENEX 1.25 MG INHALANT SOLUTION INH ×2 (13:11→21:01)
[2023-04-27] MEDS: TYLENOL 650 MG PO (14:28)
--- NOTE | 2023-04-27 14:38 | CM ---
CM following re: discharge planning.
Reviewed pt's chart, met with pt.
Patient lives in the [facility] on the first floor with no steps and requires supervision with all his ADLs, personal care, dressing and bathing and needs cues as well/sometimes min assist. Patient can feed himself. The facility provides food,
cleans, does laundry and all chief pilot.
There is always a nurse on site to administer medications. The facility does all the shopping and takes patient to his appointments.
Patient is ambulatory and does not use an AD. He has a glucometer. A nebulizer and he is on O2 prn and has home o2 as well as a concentrator.
PT and OT evaluations noted and pt seems at his baseline. No after care recommendations have been made.
D/C plan: return back to his living arrangements at [facility].
[facility] staff member can crop picker and transfer home. # [phone].
CM will follow with discharge plan updates as hospitalization progresses
--- NOTE | 2023-04-27 15:56 | W.PN.HOSP.TC ---
Today's Communication/Plan
-
see note
Assessment / Plan
Assessment / Plan
1.� Right lower lobe pneumonia
�� � Acute hypoxic respite insufficiency
� � Sepsis -tachycardic/febrile
-Patient presented for new onset of cough/shortness of breath.� Temperature of 102.5 F in ER.
-Chest x-ray showing right lower lobe infiltrates
-COVID/flu negative.� Blood cs neg
-UA has been relatively clear. No decubitus wounds
-f/u CXR and repeat COVID ordered.
-Escalated antibiotics to vancomycin and Zosyn
-ID consulted for further help as fever not improved initially with pneumonia rx. no other clear source. no fever for last 24hrs.
2.� COPD flare-up
-Patient wheezing on exam, with ongoing pneumonia sepsis we will treat as asthma flare up
-neb therapy ordered
-on IV solumedrol now, continue
3. Acute toxic metabolic encephalopathy - Improved
Chronic Hypercapnic resp failure and met alkalosis
-Suspect a combination of hypercapnic respiratory failure and medication use related
-Patient on regimen of olanzapine 20 mg at bedtime, hydroxyzine 50 mg at bedtime, divalproex 1250 mg twice daily
-Decreased olanzapine/hydroxyzine for now.
-Patient required BiPAP therapy in IMU. Repeat ABG showing improvement on hypercapnia, pulmonology involved as well.
4. Left facial droop
-CVA ruled out
-CT head w/o contrast normal
-MRI brain neg
5. schizophrenia
-Maintain on home medication of divalproex/Fanapt/olanzapine
-no behavioral problems
6. Hypotension
� � Essential HTN
-Blood pressure remains soft again today.
-Hold blood pressure medication
7. Parox Afib/rvr
-History of paroxysmal A-fib. Unable to get atenolol for last 48 hours due to above-mentioned issues
-HR in 160-180. given metoprolol 5mg IV and started on cardiazem drip
-now in SR. maintain on cardizem
8. Acute urinary retention
-requiring straight cath. gonzalez placed and taken out as patient keep pulling
-started on flomax, continue PRN straight cath
GERD
hypothyroidism
DVT PPX - lovenox
Full code- facility face sheet reviewed
Total time spent : 58 mins
I personally saw and examined the patient.
I have reviewed all diagnostic interpretations and treatment plans as written.
Time includes patient management by me, time spent at the patients bedside, time to review lab and imaging results, discussing patient care, documentation in the medical record, and time spent with the family or caregiver and discussing care plan
with RN/Consultants.
Anticipated Discharge: 24 - 48 hours
Subjective/Interval History
-
Date of Service: April 27, 2023
awake and communicative
developed new rvr in the morning with heart rate into 160-180
no other issues reported
Objective Data
-
Labs:
Laboratory Results
04/27/23 04/27/23 04/27/23
03:33 06:00 07:46
WBC 4.1 L
Hgb 11.0 L
Hct 34.2 L
Plt Count 188
HCO3 Cancelled 42.2 H*
Sodium 139
Potassium 4.2
Chloride 93 L
Carbon Dioxide 37 H
BUN 25 H
Creatinine 0.8
Glucose 224 H
Calcium 8.6
Vital Signs:
Vital Signs
Temp Pulse Resp BP Pulse Ox
98.0 F 70 19 97/63 93
04/27/23 15:53 04/27/23 15:15 04/27/23 15:15 04/27/23 15:00 04/27/23 15:15
I&O
04/26/23 04/27/23 04/28/23
06:59 06:59 06:59
Intake Total 660 / 660 1710 / 1710
Output Total 950 / 950 700 / 700 1050 / 1050
Balance -950 / -950 -40 / -40 660 / 660
Review of Systems
-
All other systems: Reviewed and negative
Physical Exam
-
General: Comfortable; Negative No Apparent Distress
HEENT: Oxygen (2L NC)
Respiratory: Clear to Auscultation
Cardiac: S1/S2, Irregular Rhythm and Tachycardic; Negative Murmur
GI: Soft, Nondistended and Normal Bowel Sounds
Musculoskeletal: No Edema
Neuro: Awake, Alert, Oriented and No Motor Deficits
[2023-04-27] MEDS: LOVENOX 40 MG SC (17:02)
[2023-04-27] MEDS: ATARAX 25 MG PO (17:02)
[2023-04-27] MEDS: GLUCOPHAGE 500 MG PO (17:02)
[2023-04-27 17:09] LABS: Glucose - Point of Care 276 mg/dl (70-99)
[2023-04-27] MEDS: SOLU-MEDROL PF IV (19:42)
[2023-04-27] MEDS: NON-FORMULARY ITEM 12 MG PO (19:58)
--- NOTE | 2023-04-27 20:00 | PTCARENOTE ---
rec`d pt at 1900 laying in bed. pt restless. PT continuously educated to keep his nasal canula on and IVs. PCT at bedside as a 1-1. Pt knows self but not place or time. SR on monitor. Cardizem gtt running. received pt on NC at 3L. satting at 90%. no
BM. Has increased appetite. Pt urinates at bedside with urinal. Pt has open wound on bridge of nose from BIPAP. Safe environment maintained.
[2023-04-27] MEDS: LANTUS 0.100000000000000006 UNITS SC (20:50)
[2023-04-27] MEDS: ZYPREXA 10 MG IM (20:51)
[2023-04-27] MEDS: STERILE WATER FOR INJECTION 2.10000000000000009 ML IM (20:51)
[2023-04-27 20:58] LABS: Glucose - Point of Care 264 mg/dl (70-99)
[2023-04-27] MEDS: ZYPREXA 10 MG PO (21:23)
[2023-04-28] VITALS (19 sets, daily range): BP systolic 102–148; BP diastolic 62–114; PULSE 2–60; O2SAT 92; BMI 32.0
--- NOTE | 2023-04-28 | PTCARENOTE ---
pt reassessed. no changes in pt assessment. pt now resting. 1-1 sitter still at bedside. bed alarm on. safe environment.
[2023-04-28] MEDS: ZOSYN 100 IV ×4 (01:44→20:55)
[2023-04-28] MEDS: VANCOCIN 300 MG IV ×2 (05:22→16:53)
[2023-04-28] MEDS: VANCOCIN 300 ML IV ×2 (05:22→16:53)
[2023-04-28 05:27] LABS: Hematocrit 30.8 % (39.0-52.0); Mean Corp Hgb Conc. 32.5 g/dL (33.0-37.0); Mean Corpuscular Hgb 32.8 pg (27.0-31.0); Mean Platelet Volume 10.5 fL (7.4-10.4); Platelet Count 180 10^3/uL (130-400); Red Blood Cell Count 3.05 10^6/uL (4.70-6.10); Red Cell Dist. Width 13.3 % (11.5-14.5); White Blood Cell Count 3.4 10^3/uL (4.8-10.8)
[2023-04-28 05:32] LABS: Glucose - Point of Care 282 mg/dl (70-99)
[2023-04-28 06:12] LABS: Vancomycin Trough 12.4 ug/ml (5-20)
[2023-04-28] MEDS: SYNTHROID 200 MCG PO (06:40)
[2023-04-28 07:17] LABS: Glucose - Point of Care 254 mg/dl (70-99)
[2023-04-28] MEDS: NOVOLOG FLEXPEN-MODERATE RESISTANCE 5 UNITS SC (07:27)
[2023-04-28] MEDS: DEPAKOTE (12 HR RELEASE) 250 MG PO ×2 (07:28→20:53)
[2023-04-28] MEDS: PROTONIX 40 MG PO (07:28)
[2023-04-28] MEDS: GLUCOPHAGE 500 MG PO ×2 (07:28→16:50)
[2023-04-28] MEDS: FLOMAX 0.800000000000000044 MG PO (07:28)
[2023-04-28] MEDS: DEPAKOTE (12 HR RELEASE) 1000 MG PO ×2 (07:28→20:53)
[2023-04-28] MEDS: CLARITIN 10 MG PO (07:28)
[2023-04-28] MEDS: SOLU-MEDROL PF 40 MG IV (07:28)
[2023-04-28] MEDS: JANUVIA 100 MG PO (07:28)
[2023-04-28] MEDS: LIPITOR 20 MG PO (07:29)
[2023-04-28] MEDS: XOPENEX 1.25 MG INHALANT SOLUTION INH ×3 (07:32→20:21)
[2023-04-28 08:22] LABS: Blood Urea Nitrogen 28 mg/dl (9-20); Calcium 8.7 mg/dl (8.4-10.2); Carbon Dioxide 40 mmol/L (22-30); Chloride 91 mmol/L (98-107); Estimated Creatinine Clearance 91 ml/min; Glucose 257 mg/dl (70-99); Sodium 137 mmol/L (135-145); eGFR > 60.00
[2023-04-28 08:27] LABS: Potassium 4.6 mmol/L (3.5-5.1)
--- NOTE | 2023-04-28 08:30 | W.PN.CD ---
Today's Communication / Plan
-
transition to PO diltiazem
resume lisinopril
check echo
to advise on cardiology follow up once echo complete
Impression / Plan
-
AFIB with RVR, paroxysmal:
-back in NSR after IV diltiazem
-transition to PO diltiazem 120mg daily
-[id number] score is 2 for HTN and DM.
-prior communication reviewed: does not appear to be good candidate for OAC
-will re-assess if A fib recurs
-check echo
HTN
-had not been receiving atenolol: will stop this
-continue diltiazem 120mg daily
-add back lisinopril 2.5mg daily
PNA:
-being treated with ABX
COPD:
-per pulmonology
Physical Exam
Vital Signs/Labs
Vital Signs
Temp Pulse Resp BP Pulse Ox
98.5 F 67 20 148/92 94
04/28/23 07:11 04/28/23 07:53 04/28/23 07:53 04/28/23 06:00 04/28/23 07:53
04/27/23 04/28/23 04/29/23
06:59 06:59 06:59
Actual Weight 91.8 kg 92.5 kg 92.5 kg
04/28/23 05:11
04/28/23 07:23
Free T4 1.27 ng/dl (0.78-2.19) 04/26/23 05:32
04/24/23 04/24/23
07:00 07:38
Mui-S-Chccvoiemhm Pept Cancelled 132
Physical Exam
Constitutional: No acute distress
EENT: Moist mucous membranes
Cardiovascular: Rhythm & rate is regular, Pedal edema is absent, JVD pressure is normal and Systolic murmur absent
Respiratory: Respiratory effort normal and Wheeze Present
GI: Soft and Distention absent
Neuro/Psych: Alert
Data Reviewed
-
Date of Service: April 28, 2023
EKG: Other (Tele: A fib --> NSR 70s)
Labs: Labs Reviewed by me
Old Records: Reviewed
--- NOTE | 2023-04-28 08:44 | W.PN.PUL3 ---
Today's Communication / Plan
-
O2
BPAP
Atbs
CS
Telem
Assessment
-
Assessment:
Mr Oren Velazquez is a 62/M adm 04-24 with dyspnea, [facility] from [facility], baseline limited historian (schizophrenia [on divalproex, fanapt, olanzapine, hydroxyzine], COPD on alb HFA/DNs/prn O2, GERD, hypothyroidism, HTN). Febrile and hypoxic at ER,
started on O2, suspected pneumonia/AECOPD, started on ceftriaxone/azithromycin, prednisone. On 04-26 presented minimal responsiveness, L facial weakness, and respiratory acidosis, mental status cleared by the time seen in consult by Neurology,
loaded with depakote as did not receive it this adm (no clear reason for outpatient use of depakote), negative spot EEG. Pulm consulted late this morning, then consult cancelled as patient presented interim improvement of MS. AFFIRMATIVE ACTION OFFICER called this
afternoon at 3 pm for recurrent minimal responsiveness, worsening resp acidosis on ABG, pulm reconsulted, moved to IMU for BPAP initiation
Impression:
R basilar pneumonia
Chronic elevation of total serum CO2 since at least 2018
Recurrent respiratory acidosis, probably compounded by use of psychiatric meds and acute illness
COVID/flu negative
AFib c RVR
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
COVID pneumonia, adm DH July 2019, required brief intubation
Developmental delay
Schizophrenia
COPD
GERD
Hypothyroidism
HTN
DM
KATTY
BPH
Obesity
Former smoker
Plan:
Transferred to IMU for worsening mentation and resp acidosis
Housed at ICU for the time being
Started on BPAP 15/7 cwp with O2 15L, ABG after 1h30m on BPAP with worsening resp acidosis
On above settings at time of visit 04-26, POx 98%, barely responsive to noxious stimuli
Adjusted BPAP to 20/7, dropped O2 to 5L, will titrate for comfort and POx 88-92%
Adjusted BPAP mask to decrease unintentional leak
Interim improvement of respiratory acidosis and MS (relatively speaking given h/o schizophrenia): now compensated pH
Transition to O2 NC since AM 04-27, used BPAP last night, continue BPAP qhs for now and prn
POx on 2L is 92%, no resp distress at rest
Checked UDS: negative
No meningeal signs to suspect meningitis
Noted Neurology consultation, negative spot EEG, loaded with valproate as he did not receive his outpatient dosing
R basilar pneumonia
Continue empiric atbs: zosyn and vancomycin which started on adm
MRSA screening positive
ID following
Checked UAgs for strep and legionella: negative
Follow blood cxs (remain negative), ordered sputum cx now that mentation has improved
Acapella as able
Reportedly wheezing upon adm
Continue systemic CS for suspected AECOPD: changed prednisone to MP 40 mg IV q12 on 04-26, continue
Change prn DNs to levalbuterol tid and prn (*)
(*)New onset AFib c RVR 04-27, paroxysmal
Started on IV diltiazem gtt, now transitioning to po
Not good candidate for OAC at the moment
Will benefit from psychiatry consultation
DVT proph, enoxaparin
Can transfer to telemetry
Diagnostic tests:
CXR 04-26-23 c/w and Nov 2020: Baseline film mildly rotated with no infiltrates. Current films with progressive R basilar infiltrate
Brain CT and MRI 04-25 and respectively. Mild increase in chronic distension of ventricular system (suspected colpocephaly vs normal pressure hydrocephalus). No acute findings
Subjective Data
-
Date of Service:
Date of Service: April 28, 2023
Chief Complaint: Pulmonary Follow Up
Subjective:
MS continues improving
Off BPAP now
Able to ambulate with some assistance
Denies major complaints
Review of Systems
General: Other (limited historian, denies major complaints)
Objective Data
Data Reviewed
Vital Signs / I&O / Oxygen:
Vital Signs
Temp Pulse Resp BP Pulse Ox
98.5 F 67 20 148/92 94
04/28/23 07:11 04/28/23 07:53 04/28/23 07:53 04/28/23 06:00 04/28/23 07:53
Intake and Output
04/27/23 04/28/23 04/29/23
06:59 06:59 06:59
Intake Total 660 / 660 2860.0 / 2860.0 1060 / 1060
Output Total 700 / 700 2250 / 2250 300 / 300
Balance -40 / -40 610.0 / 610.0 760 / 760
SaO2 94
Nasal Cannula flow liters per 2
minute
Physical Exam
General: Respiratory Distress (n)
HEENT: Normocephalic and Moist Mucous Membranes
Cardiovascular: Regular Rhythm (tachycardic), JVD (n) and Peripheral Edema (trace CECILY edema)
Respiratory: Wheeze (n), Crackles (R base), Rhonchi (trace), Accessory Resp Muscle Use and Stridor (n)
GI: Soft and Non Distended
Neurology: Awake and No Motor Deficits
Skin: Dry
Labs/Micro/Reports
Lab Data
04/28/23 05:11
04/28/23 07:23
Microbiology
04/24/23 07:28 Blood/Venous Blood Culture - Preliminary
No Growth in 4 days- Final report to follow
04/24/23 07:15 Blood/Venous Blood Culture - Preliminary
No Growth in 4 days- Final report to follow
04/25/23 16:19 Blood/Venous Blood Culture - Preliminary
No Growth in 48 hours- Final report to follow
04/24/23 16:41 Nose MRSA Screen - Final
Staph aureus MRSA
04/26/23 17:57 Urine Legionella Urinary Antigen - Final
Negative for Legionella pneumophila Serogroup 1 antigen.
A negative result does not rule out the possiblity of
Legionella infection due to other serogroups or species of
Legionella. Clinical correlation is recommended.
04/26/23 17:57 Urine Streptococcus pneumoniae Antigen (M - Final
Negative for Streptococcus pneumoniae antigen.
A negative result does not exclude infection with
Streptococcus pneumoniae. Clinical correlation is
recommended.
--- NOTE | 2023-04-28 08:47 | PN.DE.MGMTRT ---
Insulin Management
- -
04/27/2023 Diabetes Management Consult
Patient admitted 04/24 with increasing SOB, pneumonia. PMH includes schizophrenia, HTN, hypothyroid, COPD, GERD. Prior to admission his diabetes medication included ss NovoLog ac, Januvia 100 mg daily, metformin 500 mg BID. A1C 8.5%, cr .8, egfr
>60.
Patient is awake and alert but confused. Glucose has been > 200.
Will restart metformin 500 mg BID first dose with dinner, and Januvia 100 mg daily first dose tomorrow. Will add Lantus 10 units @ hs.
Discussed with patient Product Director who was with patient at time of my visit.
04/27/2023: Diabetes Management F/U:
Pt is on IV steroids for COPD flare. His OP oral diabetes regimen was initiated yesterday, 1st doses this morning.
He was also started on Lantus- received 10 units @ HS, FBG 257 this AM.
Premeal glucose remains elevated 260 -276. Will increase AC NovoLog to 12 units and increase Lantus to 15 units
Will closely monitor and make necessary adjustments
Diabetes History
- -
Type of Diabetes: 2 requiring insulin
Pre-Admission Diabetes Regimen
04/28/23 04/28/23 04/28/23
05:11 06:15 07:23
Creatinine Cancelled Cancelled 0.9
Lab Results
Hemoglobin A1c 8.5 % (4.0-5.6) H 04/24/23 08:58
Insulin Pump Settings
IP Diabetes Regimen
04/27/23 04/27/23 04/27/23
12:08 16:58 20:48
Glucose
POC Glucose 267 H 276 H 264 H
04/28/23 04/28/23 04/28/23
05:11 05:20 06:15
Glucose Cancelled Cancelled
POC Glucose 282 H
04/28/23 04/28/23
07:06 07:23
Glucose 257 H
POC Glucose 254 H
Meal type: Breakfast
Meal type: Dinner
Meal type: Lunch
Meal type: Breakfast
Amount consumed: 100%
Amount consumed: 100%
Amount consumed: 75%
Amount consumed: 100%
Patient Education
--- NOTE | 2023-04-28 09:12 | PHA.VAN.FU ---
Vancomycin Assessment / Plan
- Assessment
Renal Function: Stable (SCR slight increasing trend 0.7-->0.8-->0.9, BUN slightly elevated)
WBC's are: Stable
In the past 24 hrs, patient has been: Afebrile
Concomitant Antimicrobials: piperacillin/tazobactam
- Assessment - Therapeutic Drug Monitoring
Extrapolated Cmax (mcg/mL): 30.5
Peak level was drawn: Appropriately (drawn ~1.3H after end of previous infusion)
Extrapolated Cmin (mcg/mL): 11.6
Trough Drawn: Appropriately
Levels were drawn: At steady state (levels drawn after 3rd maintenance dose)
Calculated AUC (mcg*h/mL): 475
Calculated ke: 0.0917
Calculated half life (H): 7.6
Calculated Vd (L): 69 (~0.75 L/kg)
Calculated Vanc CL (ml/min): 105
- Dosing Plan
Continue: Vanc 1500mg Q12H
- Monitoring Plan
Level(s) appropriate: Recheck trough at minimum of weekly intervals, Repeat sooner for changes in renal function or clinical status
Next Level Due (Date): ~2/2
Monitoring Comments: consider sooner or consider dose by level if SCR continues to increase
- Follow Up
Pharmacy will continue to follow.
Vancomycin Follow UP
- -
Patient Age: 62
Patient Sex: Male
Vancomycin Day #: 3
Indication: Other
Requesting Provider: Dr. Zachary Oates / [place]
Pertinent Antimicrobial Allergies:
NKDA
Height / Weight:
Height 5 ft 7 in
Actual Weight 92.5 kg
Pertinent Past Medical History: BMI ~32
- Vital Signs / Lab Results
Temp Pulse Resp BP Pulse Ox
98.5 F 67 20 148/92 94
04/28/23 07:11 04/28/23 07:53 04/28/23 07:53 04/28/23 06:00 04/28/23 07:53
Lab Results - Hematology
04/26/23 04/27/23 04/28/23
05:32 03:33 05:11
WBC 3.3 L 4.1 L 3.4 L
Lab Results - Chemistry
04/26/23 04/27/23 04/28/23
05:32 03:33 05:11
BUN 19 25 H Cancelled
Creatinine 0.7 0.8 Cancelled
Estimated Creat Clear 116 101 Cancelled
Albumin 2.8 L
04/28/23 04/28/23
06:15 07:23
BUN Cancelled 28 H
Creatinine Cancelled 0.9
Estimated Creat Clear Cancelled 91
Albumin
Microbiology Results
04/24/23 07:28 Blood Culture - Preliminary
Blood/Venous No Growth in 4 days- Final report to follow
04/24/23 07:15 Blood Culture - Preliminary
Blood/Venous No Growth in 4 days- Final report to follow
04/25/23 16:19 Blood Culture - Preliminary
Blood/Venous No Growth in 48 hours- Final report to follow
04/24/23 16:41 MRSA Screen - Final
Nose Staph aureus MRSA
04/26/23 17:57 Legionella Urinary Antigen - Final
Urine Negative for Legionella pneumophila Serogroup 1 antigen.
A negative result does not rule out the possiblity of
Legionella infection due to other serogroups or species of
Legionella. Clinical correlation is recommended.
Streptococcus pneumoniae Antigen (M - Final
Negative for Streptococcus pneumoniae antigen.
A negative result does not exclude infection with
Streptococcus pneumoniae. Clinical correlation is
recommended.
Therapeutic Drug Monitoring
Vancomycin Peak 27.0 ug/ml (18-26) H 04/27/23 20:42
Vancomycin Trough 12.4 ug/ml (5-20) 04/28/23 05:11
[2023-04-28] MEDS: NOVOLOG FLEXPEN 8 UNITS SC (09:35)
[2023-04-28] MEDS: ZESTRIL 2.5 MG PO (09:35)
--- NOTE | 2023-04-28 09:48 | PTCARENOTE ---
report received, assessments per work list. nsr on monitor, cardiology in, orders received. oxygen weaned to 1 liter. wheezing bilaterally, harsh cough. denies pain. 1:1 observation maintained for patient safety. no short term memory, impulsive
--- NOTE | 2023-04-28 10:47 | WOUNDNOTE ---
[facility] RN note: Patient seen for HAPI report for a stage 2 nasal bridge pressure injury from Bipap mask. Patient has a prominent nose bridge. Exuderm Satin hydrocolloid dressing changed. Patient currently on o2 via nasal canula. Padded o2 tubing around
ears. Discussed with RN Amanda and RT Kahlil. Kahlil stated she will provide patient/try an under the nose type Bipap mask. Updated Dr. Arcos and Dr. Artis. Care plan to be updated. Will follow as needed.
--- NOTE | 2023-04-28 11:07 | W.PN.HOSP.TC ---
Today's Communication/Plan
-
Transfer to telemetry
PT OT and speech evaluation
Case management to kindly find out if the patient has CPAP or BiPAP at the half-way
Taper steroids
Assessment / Plan
Assessment / Plan
CVS: S1-S2 normal
Chest: rales right base
Abdomen: Soft, NT / Bowel sounds present
Extremities: No edema, normal pulses
Skin-small stage II pressure injury on the nose
62-year-old male from [facility]-way with shortness of breath.
#Right lower lobe pneumonia
Acute hypoxic respiratory insufficiency
�Sepsis -tachycardic/febrile
-Patient presented for new onset of cough/shortness of breath.� Temperature of 102.5 F in ER.
-Chest x-ray showing right lower lobe infiltrates
-COVID/flu negative.� Blood cs neg
-f/u CXR and repeat COVID ordered.
-On vancomycin and Zosyn now
-Sputum culture if possible
-Legionella and strep pneumo antigen negative
-ID consulted with ongoing fevers
# COPD flare
-neb therapy ordered
-on IV solumedrol now, continue
#Acute toxic metabolic encephalopathy - Improved
-Acute on chronic Hypercapnic resp failure and met alkalosis
-Patient on regimen of olanzapine 20 mg at bedtime, hydroxyzine 50 mg at bedtime, divalproex 1250 mg twice daily
-Decreased olanzapine/hydroxyzine for now.
-Patient required BiPAP therapy in IMU. Repeat ABG showing improvement on hypercapnia, pulmonology following
# Diabetes on metformin 500 twice daily, Lantus 15 units at bedtime and NovoLog 12 AC plus sliding scale coverage
Also on Januvia as outpatient-continued
# Left facial droop -not noted now
-CVA ruled out
-CT head w/o contrast normal
-MRI brain neg
# Stage II pressure injury on the nose from BiPAP
Wound care and special mask
#schizophrenia
-Maintain on home medication of divalproex/Fanapt/olanzapine/ hydroxyzine/
-no behavioral problems
-I will request psychiatry evaluation to adjust medicines.
#Hypotension
-With history of essential HTN
-Hold atenolol
-Patient is on Cardizem, low-dose of lisinopril
# Hyperlipidemia-continue statin
# Parox Afib/rvr
-History of paroxysmal A-fib.
-Off Cardizem drip-p.o. Cardizem
-Does not seem to be on anticoagulation as outpatient
#Acute urinary retention
-requiring straight cath. Arteaga placed and taken out as patient keep pulling
-started on Flomax, continue PRN straight cath
# Anemia-check iron studies
#GERD-PPI
#MRSA
#Hypothyroidism-Synthroid 200 mcg daily
# Developmental delay
Premature baby-2lbs and 9 ounces
# Ambulatory dysfunction-PT OT
# Glaucoma
Decreased vision in the left eye
# Ex-smoker
#DVT PPX - Lovenox
#Full code
Discussed with nursing
Discussed with patient's sister and updated in detail.
She does not know the patient has CPAP or BiPAP at the half-way. I have requested case management to kindly find out.
Time spent 53 minutes
Anticipated Discharge: 24 - 48 hours
Subjective/Interval History
-
Date of Service: April 28, 2023
Objective Data
-
Labs:
Laboratory Results
04/28/23 04/28/23 04/28/23
05:11 06:15 07:23
WBC 3.4 L
Hgb 10.0 L
Hct 30.8 L
Plt Count 180
Sodium Cancelled Cancelled 137
Potassium Cancelled Cancelled 4.6
Chloride Cancelled Cancelled 91 L
Carbon Dioxide Cancelled Cancelled 40 H
BUN Cancelled Cancelled 28 H
Creatinine Cancelled Cancelled 0.9
Glucose Cancelled Cancelled 257 H
Calcium Cancelled Cancelled 8.7
Vital Signs:
Vital Signs
Temp Pulse Resp BP Pulse Ox
98.5 F 73 13 137/75 89
04/28/23 07:11 04/28/23 09:35 04/28/23 09:15 04/28/23 09:35 04/28/23 09:15
I&O
04/27/23 04/28/23 04/29/23
06:59 06:59 06:59
Intake Total 660 / 660 2860.0 / 2860.0 1060 / 1060
Output Total 700 / 700 2250 / 2250 300 / 300
Balance -40 / -40 610.0 / 610.0 760 / 760
[2023-04-28 11:43] LABS: Glucose - Point of Care 228 mg/dl (70-99)
[2023-04-28] MEDS: NOVOLOG FLEXPEN-MODERATE RESISTANCE 3 UNITS SC ×2 (11:53→16:52)
[2023-04-28] MEDS: NOVOLOG FLEXPEN 12 UNITS SC ×2 (11:54→16:52)
[2023-04-28] MEDS: TYLENOL 650 MG PO (12:00)
--- NOTE | 2023-04-28 12:37 | W.PN.UPDATE ---
Update Note
Progress Note Update
Psychiatric evaluation dictated.
Patient is calm and cooperative, not agitated. He is no longer on Fanapt and on lower dose of Zyprexa at 10 mg as well as 1250 of Depakote bid and Atarax 25 hs.
It is generally not recommended to be on several antipsychotics at the same time so I would keep off the Fanapt as he is not psychotic. Would measure the Depakote level.
He does seem to have very poor recall and cannot do even simp[le calculations so dementia is a possible diagnosis in addition to schizophrenia.
F/U through the department.
--- NOTE | 2023-04-28 13:13 | W.PN.UPDATE ---
Update Note
Progress Note Update
echo shows EF 70-75%, mild .
continue current cardiac med regimen
please call us with additional questions
we will arrange for follow up with us
[2023-04-28] MEDS: CARDIZEM CD 120 MG PO (13:22)
--- NOTE | 2023-04-28 13:58 | PTOTSP ---
Speech Therapy Evaluation
Oropharyngeal function appears intact at the bedside.
Recommend continue regular solids/thin liquids. Standard aspiration and reflux/ANDREAS precautions (GERD dx). Meal set up assist as needed. Small bites and slow rate. Meds oral with sips of water. 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 Please reconsult as needed.
--- NOTE | 2023-04-28 14:13 | CM ---
Patient nurse at facility spoke with CM and clarified that patient does not have CPAP or Bipap at the facility. Patient does have a home O2 compressor, through [employer]. Patient nurse at [facility] stated that patient would benifit from having DME
and that she would want patient to come home with DME not script. CM updated physicians. CM spoke with [facility] and faxed h&P, blood gases and face sheet. Patient physician updated. CM will continue to follow for discharge planning needs.
Plan; home with VN; pending confirmation of DME approval- Bipap.
--- NOTE | 2023-04-28 15:06 | W.PN.ID1 ---
Date of Service
Date of Service: April 28, 2023
Today's Communication
Continue antibiotics.
Assessment / Plan
Right-sided pneumonia
- CAP vs aspiration vs MRSA
Encephalopathy
- improved today
Fever
Improved -
Respiratory failure; now off BiPAP
Schizophrenia
COPD
GERD
Hypothyroidism
HTN
Recommendations:
Continue with empiric Zosyn and vancomycin.
Aspiration precautions.
Monitor white count and temperature curve.
Continue with supportive measures.
Sputum culture if obtainable. Patient currently coughing, but finding it difficult to produce.
Follow CXR.
����������������������������������������������������������
Chief Complaint
-: Pneumonia (Right lower lobe)
Subjective / Review of Systems
Patient seen and examined. Reports feeling well. Denies fevers or chills.
Vital Signs / Physical Exam
Vital Signs
Vital Signs
Temp Pulse Resp BP Pulse Ox
98.5 F 92 28 129/62 93
04/28/23 15:00 04/28/23 13:45 04/28/23 13:45 04/28/23 13:22 04/28/23 13:45
Physical Exam
Constitutional: No Acute Distress, Comfortable and Non-toxic
Cardiovascular: S1/S2; Negative S3/S4
Pulmonary: Wheezes, Coarse and Non Labored
Gastrointestinal: Soft, Non Tender and Non Distended
Neurological: Awake and Alert
Psychological: Calm
Objective Data
Lab Data
Lab Results
04/28/23 05:11
04/28/23 07:23
ESR 43 mm/hour (0-20) H 04/26/23 05:32
Estimated Creat Clear 91 ml/min 04/28/23 07:23
Lactic Acid Cancelled 04/25/23 01:01
Total Bilirubin 0.4 mg/dl (0.2-1.3) 04/26/23 05:32
AST 23 U/L (17-59) 04/26/23 05:32
ALT 18 U/L (0-50) 04/26/23 05:32
Alkaline Phosphatase 54 U/L (38-126) 04/26/23 05:32
Most recent labs reviewed.
Micro Results:
04/24/23 07:28 Blood Culture - Preliminary
Blood/Venous No Growth in 4 days- Final report to follow
04/24/23 07:15 Blood Culture - Preliminary
Blood/Venous No Growth in 4 days- Final report to follow
04/25/23 16:19 Blood Culture - Preliminary
Blood/Venous No Growth in 48 hours- Final report to follow
04/24/23 16:41 MRSA Screen - Final
Nose Staph aureus MRSA
04/26/23 17:57 Legionella Urinary Antigen - Final
Urine Negative for Legionella pneumophila Serogroup 1 antigen.
A negative result does not rule out the possiblity of
Legionella infection due to other serogroups or species of
Legionella. Clinical correlation is recommended.
Streptococcus pneumoniae Antigen (M - Final
Negative for Streptococcus pneumoniae antigen.
A negative result does not exclude infection with
Streptococcus pneumoniae. Clinical correlation is
recommended.
04/24/23 07:00 Influenza Types A & B (CELINA) - Final
Nasal Swab Negative for Influenza A & B, NAAT
Negative results must be combined with clinical observations
and patient history.
Nucleic Acid Amplification test (NAAT)performed on the
[employer] platform.
Imaging:
04/22/2023 CXR (portable): There is persistent right base opacity consistent with pneumonia. This is slightly worsened from a prior CXR. There is increased stranding in the right upper lung zone. Findings most consistent with right upper and right
lower lobe pneumonia. Please see full dictation for additional detail. Film personally viewed.
[2023-04-28 16:47] LABS: Glucose - Point of Care 215 mg/dl (70-99)
--- NOTE | 2023-04-28 16:49 | PTCARENOTE ---
patient continues to have hallucinations, unchanged from initial assessments. cooperative. oriented to self only. wheezes persist, harsh non productive cough. room air pulse oximeter 85, on one liter, pulse oximeter 94
[2023-04-28] MEDS: LOVENOX 40 MG SC (16:50)
[2023-04-28] MEDS: ATARAX 25 MG PO (16:51)
[2023-04-28] MEDS: NON-FORMULARY ITEM 12 MG PO (20:54)
[2023-04-28] MEDS: SOLU-MEDROL PF 30 MG IV (20:54)
[2023-04-28 22:29] LABS: Glucose - Point of Care 131 mg/dl (70-99)
[2023-04-28] MEDS: LANTUS 0.149999999999999994 UNITS SC (23:00)
[2023-04-28] MEDS: STERILE WATER FOR INJECTION 2.10000000000000009 ML IM (23:01)
[2023-04-28] MEDS: ZYPREXA 10 MG IM (23:02)
[2023-04-29] VITALS (9 sets, daily range): BP systolic 92–149; BP diastolic 47–79; PULSE 2–62
--- NOTE | 2023-04-29 02:01 | PTCARENOTE ---
Pt transferred to [facility] Rm 2139 w/ all belongings. 1:1 at bedside.
[2023-04-29] MEDS: XOPENEX 1.25 MG INHALANT SOLUTION INH ×4 (02:27→19:38)
[2023-04-29] MEDS: ZOSYN 100 IV ×4 (03:13→20:08)
[2023-04-29] MEDS: VANCOCIN 300 ML IV ×2 (06:08→17:24)
[2023-04-29] MEDS: VANCOCIN 300 MG IV ×2 (06:08→17:24)
[2023-04-29] MEDS: SYNTHROID 200 MCG PO (06:13)
[2023-04-29 07:39] LABS: Glucose - Point of Care 190 mg/dl (70-99)
[2023-04-29 07:39] LABS: Hematocrit 34.5 % (39.0-52.0); Hemoglobin 11.4 g/dL (13.0-18.0); Mean Corpuscular Hgb 32.8 pg (27.0-31.0); Mean Corpuscular Volume 99.1 fL (80.0-94.0); Mean Platelet Volume 9.7 fL (7.4-10.4); Platelet Count 212 10^3/uL (130-400); Red Blood Cell Count 3.48 10^6/uL (4.70-6.10); Red Cell Dist. Width 13.3 % (11.5-14.5); White Blood Cell Count 4.5 10^3/uL (4.8-10.8)
[2023-04-29 08:05] LABS: Blood Urea Nitrogen 26 mg/dl (9-20); Calcium 8.8 mg/dl (8.4-10.2); Chloride 94 mmol/L (98-107); Estimated Creatinine Clearance 102 ml/min; Glucose 200 mg/dl (70-99); Magnesium 2.1 mg/dl (1.6-2.3); Potassium 4.4 mmol/L (3.5-5.1); Sodium 136 mmol/L (135-145); eGFR > 60.00
[2023-04-29 08:07] LABS: Depakane 54.8 ug/ml (50.0-120.0)
[2023-04-29 08:18] LABS: Carbon Dioxide 34 mmol/L (22-30)
--- NOTE | 2023-04-29 08:22 | PHA.VAN.FU ---
Vancomycin Assessment / Plan
- Assessment
Renal Function: Stable
WBC's are: Stable
Concomitant Antimicrobials: ZOSYN
- Dosing Plan
Continue: 1500MG Q12H
- Monitoring Plan
Level(s) appropriate: Recheck trough at minimum of weekly intervals, Repeat sooner for changes in renal function or clinical status
- Follow Up
Pharmacy will continue to follow.
Vancomycin Follow UP
- -
Patient Age: 62
Patient Sex: Male
Vancomycin Day #: 4
Indication: Other
Requesting Provider: Dr. Zachary Oates / [place]
Pertinent Antimicrobial Allergies:
NKDA
Height / Weight:
Height 5 ft 7 in
Actual Weight 92.5 kg
Pertinent Past Medical History: BMI ~32
- Vital Signs / Lab Results
Temp Pulse Resp BP Pulse Ox
97.9 F 76 18 145/75 96
04/29/23 07:50 04/29/23 08:18 04/29/23 08:18 04/29/23 07:50 04/29/23 08:18
Lab Results - Hematology
04/27/23 04/28/23 04/29/23
03:33 05:11 07:25
WBC 4.1 L 3.4 L 4.5 L
Lab Results - Chemistry
04/27/23 04/28/23 04/28/23
03:33 05:11 06:15
BUN 25 H Cancelled Cancelled
Creatinine 0.8 Cancelled Cancelled
Estimated Creat Clear 101 Cancelled Cancelled
04/28/23 04/29/23
07:23 07:25
BUN 28 H 26 H
Creatinine 0.9 0.8
Estimated Creat Clear 91 102
Microbiology Results
04/24/23 07:28 Blood Culture - Final
Blood/Venous No Growth - Final Report
04/24/23 07:15 Blood Culture - Final
Blood/Venous No Growth - Final Report
04/25/23 16:19 Blood Culture - Preliminary
Blood/Venous No Growth in 72 hours- Final report to follow
04/24/23 16:41 MRSA Screen - Final
Nose Staph aureus MRSA
Therapeutic Drug Monitoring
Vancomycin Peak 27.0 ug/ml (18-26) H 04/27/23 20:42
Vancomycin Trough 12.4 ug/ml (5-20) 04/28/23 05:11
[2023-04-29] MEDS: JANUVIA 100 MG PO (08:48)
[2023-04-29] MEDS: PROTONIX 40 MG PO (08:48)
[2023-04-29] MEDS: CLARITIN 10 MG PO (08:48)
[2023-04-29] MEDS: FLOMAX 0.800000000000000044 MG PO (08:48)
[2023-04-29] MEDS: ZESTRIL 2.5 MG PO (08:48)
[2023-04-29] MEDS: DEPAKOTE (12 HR RELEASE) 250 MG PO ×2 (08:48→20:07)
[2023-04-29] MEDS: LIPITOR 20 MG PO (08:48)
[2023-04-29] MEDS: DEPAKOTE (12 HR RELEASE) 1000 MG PO ×2 (08:48→20:07)
[2023-04-29] MEDS: GLUCOPHAGE 500 MG PO ×2 (08:49→17:23)
[2023-04-29] MEDS: NOVOLOG FLEXPEN-MODERATE RESISTANCE 1 UNITS SC (08:49)
[2023-04-29] MEDS: CARDIZEM CD 120 MG PO (08:50)
[2023-04-29] MEDS: NOVOLOG FLEXPEN 12 UNITS SC ×3 (08:50→16:46)
[2023-04-29] MEDS: SOLU-MEDROL PF 30 MG IV (08:51)
--- NOTE | 2023-04-29 09:32 | W.PN.ID1 ---
Date of Service
Date of Service: April 29, 2023
Today's Communication
Continue antibiotics for today.
Assessment / Plan
Right-sided pneumonia
- CAP vs aspiration vs MRSA
Encephalopathy
- improved
Fever
S/P Respiratory failure
Schizophrenia
COPD
GERD
Hypothyroidism
HTN
Recommendations:
Continue with empiric Zosyn (d#4) and vancomycin (d#4)
Aspiration precautions.
Monitor white count and temperature curve.
Continue with supportive measures.
Sputum culture if obtainable. Patient currently coughing, but finding it difficult to produce.
Follow CXR.
����������������������������������������������������������
Chief Complaint
-: Pneumonia (Right lower lobe)
Subjective / Review of Systems
Patient seen and examined. Denies shortness of breath, but notes ongoing cough. No significant sputum production.
Review of Systems: No Fever and No Chills
Vital Signs / Physical Exam
Vital Signs
Vital Signs
Temp Pulse Resp BP Pulse Ox
97.9 F 76 18 145/75 96
04/29/23 07:50 04/29/23 08:50 04/29/23 08:18 04/29/23 08:50 04/29/23 08:18
Physical Exam
Constitutional: No Acute Distress, Comfortable, Chronically Ill and Non-toxic
Eyes: No Conjunctival Hemorrhage and Sclera Anicteric
Cardiovascular: Regular Rate and S1/S2; Negative S3/S4
Pulmonary: Clear; Negative Wheezes or Rales
Gastrointestinal: Soft and Non Tender
Neurological: Awake, Alert and Oriented
Psychological: Calm
Objective Data
Lab Data
Lab Results
04/29/23 07:25
04/29/23 07:25
ESR 43 mm/hour (0-20) H 04/26/23 05:32
Estimated Creat Clear 102 ml/min 04/29/23 07:25
Lactic Acid Cancelled 04/25/23 01:01
Total Bilirubin 0.4 mg/dl (0.2-1.3) 04/26/23 05:32
AST 23 U/L (17-59) 04/26/23 05:32
ALT 18 U/L (0-50) 04/26/23 05:32
Alkaline Phosphatase 54 U/L (38-126) 04/26/23 05:32
Most recent labs reviewed.
Micro Results:
04/24/23 07:28 Blood Culture - Final
Blood/Venous No Growth - Final Report
04/24/23 07:15 Blood Culture - Final
Blood/Venous No Growth - Final Report
04/25/23 16:19 Blood Culture - Preliminary
Blood/Venous No Growth in 72 hours- Final report to follow
04/24/23 16:41 MRSA Screen - Final
Nose Staph aureus MRSA
04/26/23 17:57 Legionella Urinary Antigen - Final
Urine Negative for Legionella pneumophila Serogroup 1 antigen.
A negative result does not rule out the possiblity of
Legionella infection due to other serogroups or species of
Legionella. Clinical correlation is recommended.
Streptococcus pneumoniae Antigen (M - Final
Negative for Streptococcus pneumoniae antigen.
A negative result does not exclude infection with
Streptococcus pneumoniae. Clinical correlation is
recommended.
04/24/23 07:00 Influenza Types A & B (CELINA) - Final
Nasal Swab Negative for Influenza A & B, NAAT
Negative results must be combined with clinical observations
and patient history.
Nucleic Acid Amplification test (NAAT)performed on the
[employer] platform.
Imaging:
04/22/2023 CXR (portable): There is persistent right base opacity consistent with pneumonia. This is slightly worsened from a prior CXR. There is increased stranding in the right upper lung zone. Findings most consistent with right upper and right
lower lobe pneumonia. Please see full dictation for additional detail. Film personally viewed.
--- NOTE | 2023-04-29 11:06 | W.PN.HOSP.TC ---
Today's Communication/Plan
-
AB
BIPAP
WEAN O2 TOLERATED
DROP STEROIDS A BIT
Assessment / Plan
Assessment / Plan
CVS: S1-S2 normal
Chest: rales right base
Abdomen: Soft, NT / Bowel sounds present
Extremities: No edema, normal pulses
Skin-small stage II pressure injury on the nose
62-year-old male from [facility] with [facility]ness of breath.
#Right lower lobe pneumonia
Acute hypoxic respiratory insufficiency
�Sepsis -tachycardic/febrile
-Patient presented for new onset of cough/shortness of breath.� Temperature of 102.5 F in ER.
-Chest x-ray showing right lower lobe infiltrates
-COVID/flu negative.� Blood cs neg
-f/u CXR and repeat COVID ordered.
-On vancomycin and Zosyn now
-Sputum culture if possible
-Legionella and strep pneumo antigen negative
-ID and Pulm following
# COPD flare
-neb therapy ordered
-on IV solumedrol now, taper
#Acute toxic metabolic encephalopathy - Improved
-Acute on chronic Hypercapnic resp failure and met alkalosis
-Patient on regimen of olanzapine 10 mg at bedtime, hydroxyzine 25 mg at bedtime, divalproex 1250 mg twice daily-now
-Decreased olanzapine/hydroxyzine for now.
-Patient required BiPAP therapy in IMU. Repeat ABG showing improvement on hypercapnia, pulmonology following
-I think he needs BiPAP for discharge considering how his ABG is
-He will be at high risk for readmission otherwise
-Patient agreeable to use 'mask'
# Diabetes on metformin 500 twice daily, Lantus 15 units at bedtime and NovoLog 12 AC plus sliding scale coverage
Also on Januvia as outpatient-continued
# Left facial droop -not noted now
-CVA ruled out
-CT head w/o contrast normal
-MRI brain neg
# Stage II pressure injury on the nose from BiPAP
Wound care and special mask
#schizophrenia
-Maintained on home medication of divalproex/Fanapt/olanzapine/ hydroxyzine at NH
-Fanapt stopped by psyche
-Continue Depakote 250 twice daily, olanzapine 10 mg at night and hydroxyzine 25 mg at night.
-no behavioral problems
-Psychiatry evaluation appreciated
#Hypotension
-With history of essential HTN
-Hold atenolol
-Patient is on Cardizem, low-dose of lisinopril
# Hyperlipidemia-continue statin
# Parox Afib/rvr
-History of paroxysmal A-fib.
-Off Cardizem drip-p.o. Cardizem
-Does not seem to be on anticoagulation as outpatient
-Echo ejection fraction 70 to 75%, mild
#Acute urinary retention
-requiring straight cath. Arteaga placed and taken out as patient keep pulling
-started on Flomax, continue PRN straight cath
# Anemia-normal ferritin and B12
#GERD-PPI
#MRSA
#Hypothyroidism-Synthroid 200 mcg daily
# Developmental delay
Premature baby-2lbs and 9 ounces
# Ambulatory dysfunction-PT OT
# Glaucoma
Decreased vision in the left eye
# Ex-smoker
#DVT PPX - Lovenox
#Full code
Discussed with nursing
04/28/2023 discussed with patient's sister and updated in detail.
Discussed with pulmonary
Anticipated Discharge: 24 - 48 hours
Subjective/Interval History
-
Date of Service: April 29, 2023
Objective Data
-
Labs:
Laboratory Results
04/29/23
07:25
WBC 4.5 L
Hgb 11.4 L
Hct 34.5 L
Plt Count 212
Sodium 136
Potassium 4.4
Chloride 94 L
Carbon Dioxide 34 H
BUN 26 H
Creatinine 0.8
Glucose 200 H
Calcium 8.8
Vital Signs:
Vital Signs
Temp Pulse Resp BP Pulse Ox
97.9 F 76 18 145/75 96
04/29/23 07:50 04/29/23 08:50 04/29/23 08:18 04/29/23 08:50 04/29/23 08:18
I&O
04/28/23 04/29/23 04/30/23
06:59 06:59 06:59
Intake Total 2860.0 / 2860.0 1820 / 1820
Output Total 2250 / 2250 300 / 300
Balance 610.0 / 610.0 1520 / 1520
[2023-04-29 13:07] LABS: Glucose - Point of Care 147 mg/dl (70-99)
--- NOTE | 2023-04-29 13:08 | W.PN.PUL3 ---
Today's Communication / Plan
-
O2
IS
ABx
Assessment
-
Assessment:
Mr Oren Velazquez is a 62/M adm 04-24 with dyspnea, sent from [facility], baseline limited historian (schizophrenia [on divalproex, fanapt, olanzapine, hydroxyzine], COPD on alb HFA/DNs/prn O2, GERD, hypothyroidism, HTN). Febrile and hypoxic at ER,
started on O2, suspected pneumonia/AECOPD, started on ceftriaxone/azithromycin, prednisone. On 04-26 presented minimal responsiveness, L facial weakness, and respiratory acidosis, mental status cleared by the time seen in consult by Neurology,
loaded with depakote as did not receive it this adm (no clear reason for outpatient use of depakote), negative spot EEG. Pulm consulted late this morning, then consult cancelled as patient presented interim improvement of MS. [employer] DEPARTMENT CHAIR called this
afternoon at 3 pm for recurrent minimal responsiveness, worsening resp acidosis on ABG, pulm reconsulted, moved to IMU for BPAP initiation
Impression:
R basilar pneumonia
Chronic elevation of total serum CO2 since at least 2018
Chronic hypercapnea due to obesity hypoventilation syndrome
Acute on chronic respiratory acidosis, probably compounded by use of psychiatric meds and acute illness
COVID/flu negative
AFib c RVR
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
COVID pneumonia, adm DH July 2019, required brief intubation
Developmental delay
Schizophrenia
COPD
GERD
Hypothyroidism
HTN
DM
KATTY
BPH
Obesity
Former smoker
Plan:
Transferred to IMU for worsening mentation and resp acidosis
Housed at ICU for the time being
Started on BPAP 15/7 cwp with O2 15L, ABG after 1h30m on BPAP with worsening resp acidosis
On above settings at time of visit 04-26, POx 98%, barely responsive to noxious stimuli
Adjusted BPAP to 20/7, dropped O2 to 5L, will titrate for comfort and POx 88-92%
Adjusted BPAP mask to decrease unintentional leak
Interim improvement of respiratory acidosis and MS (relatively speaking given h/o schizophrenia): now compensated pH
Transition to O2 NC since AM 04-27, used BPAP last night, continue BPAP qhs for now and prn
POx on 2L is 92%, no resp distress at rest
Checked UDS: negative
No meningeal signs to suspect meningitis
Noted Neurology consultation, negative spot EEG, loaded with valproate as he did not receive his outpatient dosing
R basilar pneumonia
Continue empiric atbs: zosyn and vancomycin which started on adm
MRSA screening positive
ID following
Checked UAgs for strep and legionella: negative
Follow blood cxs (remain negative), ordered sputum cx now that mentation has improved
Acapella as able
Regarding his obesity hypoventilation syndrome:
Patient requires non-invasive volume ventilation due to OHS, bilevel has been considered and ruled out, including bilevel VAPS. Patient requires pressures greater than [id number] which is not supported by a bilevel VAPS due to body habitus. A
traditional ventilator will exceed pressures greater than 30 cmH2O with a max pressure of 50 cmH2O.
Reportedly wheezing upon adm
Continue systemic CS for suspected AECOPD: changed prednisone to MP 40 mg IV q12 on 04-26, continue
Change prn DNs to levalbuterol tid and prn (*)
(*)New onset AFib c RVR 04-27, paroxysmal
Started on IV diltiazem gtt, now transitioning to po
Not good candidate for OAC at the moment
Will benefit from psychiatry consultation
DVT proph, enoxaparin
Pulmonary to continue to follow.
(Patient seen and evaluated on 04/29/2023).
Diagnostic tests:
CXR 04-26-23 c/w and Nov 2020: Baseline film mildly rotated with no infiltrates. Current films with progressive R basilar infiltrate
Brain CT and MRI 04-25 and respectively. Mild increase in chronic distension of ventricular system (suspected colpocephaly vs normal pressure hydrocephalus). No acute findings
Subjective Data
-
Date of Service:
Date of Service: April 29, 2023
Chief Complaint: Pulmonary Follow Up
Subjective:
Seen today. Resting in bed in NAD. Confused at times. He is on room air. He denies chest pain, SEGURA, abd pain, N/V/f/c.
Review of Systems
General: Other (negative unless mentioned above)
Objective Data
Data Reviewed
Vital Signs / I&O / Oxygen:
Vital Signs
Temp Pulse Resp BP Pulse Ox
97.7 F 68 16 133/73 94
04/29/23 11:20 04/29/23 11:20 04/29/23 11:20 04/29/23 11:20 04/29/23 11:20
Intake and Output
04/28/23 04/29/23 04/30/23
06:59 06:59 06:59
Intake Total 2860.0 / 2860.0 1820 / 1820
Output Total 2250 / 2250 300 / 300
Balance 610.0 / 610.0 1520 / 1520
SaO2 94
Nasal Cannula flow liters per 3
minute
Physical Exam
General: Respiratory Distress (n) and Chills (negative)
HEENT: Normocephalic, Anicteric and Moist Mucous Membranes
Cardiovascular: S1-S2, JVD (n) and Peripheral Edema (negative)
Respiratory: Wheeze (bilaterally upon expiration), Crackles (neg), Rhonchi (neg), Accessory Resp Muscle Use (neg), Stridor (n) and Other (Reduced BS bilaterally)
GI: Soft, Non Distended and Normal Bowel Sounds
Neurology: Awake, Alert and No Motor Deficits
Skin: Warm and Dry
Labs/Micro/Reports
Lab Data
04/29/23 07:25
04/29/23 07:25
Microbiology
04/24/23 07:28 Blood/Venous Blood Culture - Final
No Growth - Final Report
04/24/23 07:15 Blood/Venous Blood Culture - Final
No Growth - Final Report
04/25/23 16:19 Blood/Venous Blood Culture - Preliminary
No Growth in 72 hours- Final report to follow
04/24/23 16:41 Nose MRSA Screen - Final
Staph aureus MRSA
04/26/23 17:57 Urine Legionella Urinary Antigen - Final
Negative for Legionella pneumophila Serogroup 1 antigen.
A negative result does not rule out the possiblity of
Legionella infection due to other serogroups or species of
Legionella. Clinical correlation is recommended.
04/26/23 17:57 Urine Streptococcus pneumoniae Antigen (M - Final
Negative for Streptococcus pneumoniae antigen.
A negative result does not exclude infection with
Streptococcus pneumoniae. Clinical correlation is
recommended.
[2023-04-29] MEDS: NOVOLOG FLEXPEN-MODERATE RESISTANCE SC (13:22)
[2023-04-29] MEDS: TYLENOL 650 MG PO (13:23)
[2023-04-29 16:37] LABS: Glucose - Point of Care 225 mg/dl (70-99)
[2023-04-29] MEDS: NOVOLOG FLEXPEN-MODERATE RESISTANCE 3 UNITS SC (16:45)
[2023-04-29] MEDS: LOVENOX 40 MG SC (17:24)
[2023-04-29] MEDS: ATARAX 25 MG PO (17:24)
[2023-04-29] MEDS: NON-FORMULARY ITEM 1 MG PO (20:07)
[2023-04-29] MEDS: SOLU-MEDROL PF 20 MG IV (20:08)
[2023-04-29 21:54] LABS: Glucose - Point of Care 200 mg/dl (70-99)
[2023-04-29] MEDS: STERILE WATER FOR INJECTION 2.10000000000000009 ML IM (22:14)
[2023-04-29] MEDS: LANTUS 0.149999999999999994 UNITS SC (22:14)
[2023-04-29] MEDS: ZYPREXA 10 MG IM (22:15)
[2023-04-30] MEDS: ZOSYN 100 IV ×4 (02:37→20:42)
[2023-04-30] MEDS: VANCOCIN 300 MG IV ×2 (05:43→17:27)
[2023-04-30] MEDS: SYNTHROID 200 MCG PO (05:43)
[2023-04-30] MEDS: VANCOCIN 300 ML IV ×2 (05:43→17:27)
[2023-04-30 07:04] VITALS: BP 139/80
[2023-04-30 07:24] LABS: Blood Urea Nitrogen 19 mg/dl (9-20); Calcium 8.8 mg/dl (8.4-10.2); Chloride 96 mmol/L (98-107); Estimated Creatinine Clearance 102 ml/min; Glucose 172 mg/dl (70-99); Sodium 136 mmol/L (135-145); eGFR > 60.00
[2023-04-30 07:35] LABS: Carbon Dioxide 40 mmol/L (22-30)
[2023-04-30 07:41] LABS: Glucose - Point of Care 155 mg/dl (70-99)
--- NOTE | 2023-04-30 07:55 | PHA.VAN.FU ---
Vancomycin Assessment / Plan
- Assessment
Renal Function: Stable
WBC's are: Stable
In the past 24 hrs, patient has been: Afebrile
Concomitant Antimicrobials: ZOSYN
- Dosing Plan
Continue: 1500MG Q12H
- Monitoring Plan
Level(s) appropriate: Recheck trough at minimum of weekly intervals, Repeat sooner for changes in renal function or clinical status
- Follow Up
Pharmacy will continue to follow.
Vancomycin Follow UP
- -
Patient Age: 62
Patient Sex: Male
Vancomycin Day #: 5
Indication: Other
Requesting Provider: Dr. Zachary Oates / [place]
Pertinent Antimicrobial Allergies:
NKDA
Height / Weight:
Height 5 ft 7 in
Actual Weight 92.5 kg
Pertinent Past Medical History: BMI ~32
- Vital Signs / Lab Results
Temp Pulse Resp BP Pulse Ox
97.1 F 71 20 139/80 96
04/30/23 07:04 04/30/23 07:04 04/30/23 07:04 04/30/23 07:04 04/30/23 07:04
Lab Results - Hematology
04/28/23 04/29/23
05:11 07:25
WBC 3.4 L 4.5 L
Lab Results - Chemistry
04/28/23 04/28/23 04/28/23
05:11 06:15 07:23
BUN Cancelled Cancelled 28 H
Creatinine Cancelled Cancelled 0.9
Estimated Creat Clear Cancelled Cancelled 91
04/29/23 04/30/23
07:25 06:36
BUN 26 H 19
Creatinine 0.8 0.8
Estimated Creat Clear 102 102
Microbiology Results
04/25/23 16:19 Blood Culture - Preliminary
Blood/Venous No Growth in 4 days- Final report to follow
04/24/23 07:28 Blood Culture - Final
Blood/Venous No Growth - Final Report
04/24/23 07:15 Blood Culture - Final
Blood/Venous No Growth - Final Report
Therapeutic Drug Monitoring
Vancomycin Peak 27.0 ug/ml (18-26) H 04/27/23 20:42
Vancomycin Trough 12.4 ug/ml (5-20) 04/28/23 05:11
[2023-04-30] MEDS: XOPENEX 1.25 MG INHALANT SOLUTION INH ×3 (08:03→20:45)
[2023-04-30] MEDS: NOVOLOG FLEXPEN-MODERATE RESISTANCE 1 UNITS SC ×2 (08:26→16:10)
[2023-04-30] MEDS: NOVOLOG FLEXPEN 12 UNITS SC ×3 (08:26→16:10)
[2023-04-30] MEDS: FLOMAX 0.800000000000000044 MG PO (08:27)
[2023-04-30] MEDS: DEPAKOTE (12 HR RELEASE) 1000 MG PO ×2 (08:27→20:42)
[2023-04-30] MEDS: LIPITOR 20 MG PO (08:27)
[2023-04-30] MEDS: JANUVIA 100 MG PO (08:27)
[2023-04-30] MEDS: CLARITIN 10 MG PO (08:27)
[2023-04-30] MEDS: ZESTRIL 2.5 MG PO (08:27)
[2023-04-30] MEDS: CARDIZEM CD 120 MG PO (08:27)
[2023-04-30] MEDS: SOLU-MEDROL PF 20 MG IV ×2 (08:28→20:45)
[2023-04-30] MEDS: PROTONIX 40 MG PO (08:28)
[2023-04-30] MEDS: DEPAKOTE (12 HR RELEASE) 250 MG PO ×2 (08:28→20:42)
[2023-04-30] MEDS: GLUCOPHAGE 500 MG PO ×2 (08:28→17:26)
--- NOTE | 2023-04-30 09:49 | W.PN.HOSP.TC ---
Today's Communication/Plan
-
wean O2
lasix
Assessment / Plan
Assessment / Plan
CVS: S1-S2 normal
Chest: rales right base
Abdomen: Soft, NT / Bowel sounds present
Extremities: No edema, normal pulses
Skin-small stage II pressure injury on the nose
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
Chest x-ray reviewed by me-looks better. Fluid in the right fissure, atelectasis
#Right lower lobe pneumonia
Acute hypoxic respiratory insufficiency
�Sepsis -tachycardic/febrile
-Patient presented for new onset of cough/shortness of breath.� Temperature of 102.5 F in ER.
-Chest x-ray showing right lower lobe infiltrates
-COVID/flu negative.� Blood cs neg
-On vancomycin and Zosyn now
-Sputum culture if possible
-Legionella and strep pneumo antigen negative
-ID and Pulm following
# COPD flare
-neb therapy ordered
-on IV solumedrol now, taper
#Acute toxic metabolic encephalopathy - Improved
-Acute on chronic Hypercapnic resp failure and met alkalosis
-Patient on regimen of olanzapine 10 mg at bedtime, hydroxyzine 25 mg at bedtime, divalproex 1250 mg twice daily-now
-Decreased olanzapine/hydroxyzine for now.
-Patient required BiPAP therapy in IMU. Repeat ABG showing improvement on hypercapnia, pulmonology following
-I think he needs BiPAP for discharge considering how his ABG is
-He will be at high risk for readmission otherwise
-Patient agreeable to use 'mask'
# Diabetes on metformin 500 twice daily, Lantus 15 units at bedtime and NovoLog 12 AC plus sliding scale coverage
Also on Januvia as outpatient-continued
# Left facial droop -not noted now
-CVA ruled out
-CT head w/o contrast normal
-MRI brain neg
# Stage II pressure injury on the nose from BiPAP
Wound care and special mask
#Schizophrenia
-Maintained on home medication of divalproex/Fanapt/olanzapine/ hydroxyzine at NH
-Fanapt stopped by psyche
-Continue Depakote 1250 twice daily, olanzapine 10 mg at night and hydroxyzine 25 mg at night.
-No behavioral problems
-Psychiatry evaluation appreciated
#Hypotension
-With history of essential HTN
-Hold atenolol
-Patient is on Cardizem, low-dose of lisinopril
# Hyperlipidemia-continue statin
# Parox Afib/RVR
-History of paroxysmal A-fib.
-Off Cardizem drip-p.o. Cardizem
-Does not seem to be on anticoagulation as outpatient
-Echo ejection fraction 70 to 75%, mild
#Acute urinary retention
-Requiring straight cath. Arteaga placed and taken out as patient keep pulling
-Started on Flomax, continue PRN straight cath
# Anemia-normal ferritin and B12
#GERD-PPI
#MRSA
#Hypothyroidism-Synthroid 200 mcg daily
# Developmental delay
Premature baby-2lbs and 9 ounces
# Ambulatory dysfunction-PT OT
# Glaucoma
Decreased vision in the left eye
# Ex-smoker
#DVT PPX - Lovenox
#Full code
Discussed with nursing
Discussed with case management
Encourage patient to use Acapella and incentive spirometry
Spoke to patient's sister and updated
Anticipated Discharge: 24 - 48 hours
Subjective/Interval History
-
Date of Service: April 30, 2023
Objective Data
-
Labs:
Laboratory Results
04/30/23
06:36
Sodium 136
Potassium 5.0
Chloride 96 L
Carbon Dioxide 40 H
BUN 19
Creatinine 0.8
Glucose 172 H
Calcium 8.8
Vital Signs:
Vital Signs
Temp Pulse Resp BP Pulse Ox
97.1 F 69 18 139/80 93
04/30/23 07:04 04/30/23 08:07 04/30/23 08:07 04/30/23 07:04 04/30/23 08:07
I&O
04/29/23 04/30/23 05/01/23
06:59 06:59 06:59
Intake Total 1820 / 1820 2770 / 2770 1320 / 1320
Output Total 300 / 300 900 / 900 600 / 600
Balance 1520 / 1520 1870 / 1870 720 / 720
--- NOTE | 2023-04-30 10:10 | PTCARENOTE ---
pt continues on 3 L of oxygen tried to wean off to 2 L but pt's pox dropped to 86%, tried on 2 different fingers for accuracy and it read 86% encouraged to use spirometer and take deep breaths, 3 L of oxygen applied again to patient.
[2023-04-30] MEDS: LASIX 20 MG IV (10:19)
[2023-04-30 11:23] VITALS: BP 138/79
[2023-04-30 11:32] LABS: Glucose - Point of Care 227 mg/dl (70-99)
[2023-04-30] MEDS: NOVOLOG FLEXPEN-MODERATE RESISTANCE 3 UNITS SC (11:34)
--- NOTE | 2023-04-30 12:16 | W.PN.PUL3 ---
Today's Communication / Plan
-
O2
IS
ABx
BiPAP with sleep; RAD upon discharge
Assessment
-
Assessment:
Mr Oren Velazquez is a 62/M adm 04-24 with dyspnea, [facility] baseline limited historian (schizophrenia [on divalproex, fanapt, olanzapine, hydroxyzine], COPD on alb HFA/DNs/prn O2, GERD, hypothyroidism, HTN). Febrile and hypoxic at ER,
started on O2, suspected pneumonia/AECOPD, started on ceftriaxone/azithromycin, prednisone. On 04-26 presented minimal responsiveness, L facial weakness, and respiratory acidosis, mental status cleared by the time seen in consult by Neurology,
loaded with depakote as did not receive it this adm (no clear reason for outpatient use of depakote), negative spot EEG. Pulm consulted late this morning, then consult cancelled as patient presented interim improvement of MS. RISK MGR called this
afternoon at 3 pm for recurrent minimal responsiveness, worsening resp acidosis on ABG, pulm reconsulted, moved to IMU for BPAP initiation
Impression:
R basilar pneumonia
Chronic elevation of total serum CO2 since at least 2018
Chronic hypercapnea due to obesity hypoventilation syndrome
Acute on chronic respiratory acidosis, probably compounded by use of psychiatric meds and acute illness
COVID/flu negative
AFib c RVR - rate controlled now
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
COVID pneumonia, adm DH July 2019, required brief intubation
Developmental delay
Schizophrenia
COPD
GERD
Hypothyroidism
HTN
DM
KATTY
BPH
Obesity
Former smoker
Plan:
Continue BiPAP at night
Nasal cannula during day
Titrate O2 flow rate/FiO2 to maintain SpO2 >88%
Adjusted BPAP to 20/7, dropped O2 to 5L, will titrate for comfort and POx 88-92%
Adjusted BPAP mask to decrease unintentional leak
Interim improvement of respiratory acidosis and MS (relatively speaking given h/o schizophrenia): now compensated pH
Transition to O2 NC since AM 04-27, used BPAP last night, continue BPAP qhs for now and prn
Checked UDS: negative
No meningeal signs to suspect meningitis
Noted Neurology consultation, negative spot EEG, loaded with valproate as he did not receive his outpatient dosing
R basilar pneumonia
Continue empiric atbs: zosyn and vancomycin which started on adm
MRSA screening positive
ID following
Checked UAgs for strep and legionella: negative
Follow blood cxs (remain negative), ordered sputum cx now that mentation has improved
Acapella as able
Regarding his obesity hypoventilation syndrome:
Patient requires non-invasive volume ventilation due to OHS, bilevel has been considered and ruled out, including bilevel VAPS. Patient requires pressures greater than 90haC8K which is not supported by a bilevel VAPS due to body habitus. A
traditional ventilator will exceed pressures greater than 30 cmH2O with a max pressure of 50 cmH2O.
Reportedly wheezing upon adm
Continue systemic CS for suspected AECOPD: changed prednisone to MP 40 mg IV q12 on 04-26, weaned to 20mg IV q12hr on 04/29
Change prn DNs to levalbuterol tid and prn (*)
(*)New onset AFib c RVR 04-27, paroxysmal
Started on IV diltiazem gtt, now transitioning to po
Not good candidate for OAC at the moment
Will benefit from psychiatry consultation - psych saw pt today
DVT proph, enoxaparin
Pulmonary to continue to follow.
(Patient seen and evaluated on 04/30/2023).
Diagnostic tests:
CXR 04-30-2023:
Persistent, though improving right lower lobe pneumonia.
Small mild left lower lobe atelectasis, pneumonia, and/or trace pleural effusion appearing to have developed since prior examination.
Persistent, though improving right lower lobe pneumonia.
Small mild left lower lobe atelectasis, pneumonia, and/or trace pleural effusion appearing to have developed since prior examination.
CXR 04-26-23 c/w and Nov 2020: Baseline film mildly rotated with no infiltrates. Current films with progressive R basilar infiltrate
Brain CT and MRI 04-25 and respectively. Mild increase in chronic distension of ventricular system (suspected colpocephaly vs normal pressure hydrocephalus). No acute findings
Subjective Data
-
Date of Service:
Date of Service: April 30, 2023
Chief Complaint: Pulmonary Follow Up
Subjective:
Pt seen this afternoon. DOing well. Wore BiPAP overnight. On 3L/min NC. No acute events reported from overnight. Seen by psych today.
Review of Systems
General: Other (neg unless mentioned above)
Objective Data
Data Reviewed
Vital Signs / I&O / Oxygen:
Vital Signs
Temp Pulse Resp BP Pulse Ox
97.5 F 70 20 138/79 95
04/30/23 11:23 04/30/23 11:23 04/30/23 11:23 04/30/23 11:23 04/30/23 11:23
Intake and Output
04/29/23 04/30/23 05/01/23
06:59 06:59 06:59
Intake Total 1820 / 1820 2770 / 2770 1680 / 1680
Output Total 300 / 300 900 / 900 600 / 600
Balance 1520 / 1520 1870 / 1870 1080 / 1080
SaO2 95
Nasal Cannula flow liters per 3
minute
Physical Exam
General: Respiratory Distress (n) and Chills (negative)
HEENT: Normocephalic, Anicteric and Moist Mucous Membranes
Cardiovascular: S1-S2, JVD (n) and Peripheral Edema (negative)
Respiratory: Wheeze (occassionally heard upon expiration), Crackles (bibasilar), Rhonchi (neg), Accessory Resp Muscle Use (neg) and Stridor (n)
GI: Soft, Non Distended and Normal Bowel Sounds
Neurology: Awake, Alert and No Motor Deficits
Skin: Warm and Dry
Labs/Micro/Reports
Lab Data
04/29/23 07:25
04/30/23 06:36
Microbiology
04/25/23 16:19 Blood/Venous Blood Culture - Preliminary
No Growth in 4 days- Final report to follow
04/24/23 07:28 Blood/Venous Blood Culture - Final
No Growth - Final Report
04/24/23 07:15 Blood/Venous Blood Culture - Final
No Growth - Final Report
04/24/23 16:41 Nose MRSA Screen - Final
Staph aureus MRSA
[2023-04-30 15:02] VITALS: BP 123/77
[2023-04-30 15:50] LABS: Glucose - Point of Care 194 mg/dl (70-99)
--- NOTE | 2023-04-30 16:17 | W.PN.UPDATE ---
Update Note
Progress Note Update
Pt seen, reviewed with nursing, chart reviewed. Pt admitted with RLL pneumonia, from [facility], with hx of Schizophrenia. Psych medications were adjusted, duplicate antipsychotic Fanapt has been held. Zyprexa was lowered 10 mg HS from 20 mg,
though ordered IM. Pt sitting up in chair, in no distress, alert, cooperative with no signs of active psychosis. Pt denies problems with his medications, appears to have limited insight.
Imp: Schizophrenia, stable on established Zyprexa
Rec: Will resume existing dose of Zyprexa 20 mg po at HS. Will continue to hold off Fanapt
Will follow peripherally
[2023-04-30] MEDS: LOVENOX 40 MG SC (17:26)
[2023-04-30] MEDS: ATARAX 25 MG PO (17:26)
[2023-04-30 18:51] VITALS: BP 162/93
[2023-04-30] MEDS: PINK BISMUTH 525 MG PO (20:42)
[2023-04-30] MEDS: NON-FORMULARY ITEM 1 MG PO (20:42)
[2023-04-30 20:52] LABS: Glucose - Point of Care 197 mg/dl (70-99)
--- NOTE | 2023-04-30 21:00 | PTCARENOTE ---
Patient c/o 'upset stomach' ; patient asking for Pepto Bismol; Paul GARCIA notified; [place] Bismuth administered @ 2041.
[2023-04-30 22:21] VITALS: BP 152/77
[2023-04-30] MEDS: LANTUS 0.149999999999999994 UNITS SC (22:40)
[2023-04-30] MEDS: ZYPREXA 20 MG PO (22:40)
[2023-05-01] VITALS (8 sets, daily range): BP systolic 111–153; BP diastolic 65–95; PULSE 94; O2SAT 97–98
--- NOTE | 2023-05-01 00:01 | PTCARENOTE ---
Patient refused Bipap tonight. Pt remains on 3L oxygen.
[2023-05-01] MEDS: XOPENEX 1.25 MG INHALANT SOLUTION INH ×4 (02:36→20:18)
[2023-05-01] MEDS: ZOSYN 100 IV ×3 (02:54→13:00)
[2023-05-01 05:05] LABS: Venous Blood Gas B.E. 17.2 mmol/L (-4 to +4); Venous Blood Gas O2 Sat % 99.5 %; Venous Blood Gas pH 7.41 (7.32-7.43); Venous Blood Gas pO2 167 mmHg (30-50)
[2023-05-01 05:14] LABS: Venous Blood Gas pCO2 71 mmHg (35-48)
[2023-05-01 05:42] LABS: Blood Urea Nitrogen 19 mg/dl (9-20); Chloride 93 mmol/L (98-107); Estimated Creatinine Clearance 117 ml/min; Glucose 194 mg/dl (70-99); Potassium 4.3 mmol/L (3.5-5.1); Sodium 135 mmol/L (135-145); eGFR > 60.00
[2023-05-01 05:53] LABS: Carbon Dioxide 36 mmol/L (22-30)
[2023-05-01] MEDS: SYNTHROID 200 MCG PO (06:08)
[2023-05-01] MEDS: VANCOCIN 300 MG IV (06:08)
[2023-05-01] MEDS: VANCOCIN 300 ML IV (06:08)
--- NOTE | 2023-05-01 07:45 | PN.DE.MGMTRT ---
Insulin Management
- -
04/27/2023 Diabetes Management Consult
Patient admitted 04/24 with increasing SOB, pneumonia. PMH includes schizophrenia, HTN, hypothyroid, COPD, GERD. Prior to admission his diabetes medication included ss NovoLog ac, Januvia 100 mg daily, metformin 500 mg BID. A1C 8.5%, cr .8, egfr
>60.
Patient is awake and alert but confused. Glucose has been > 200.
Will restart metformin 500 mg BID first dose with dinner, and Januvia 100 mg daily first dose tomorrow. Will add Lantus 10 units @ hs.
Discussed with patient Probation Manager who was with patient at time of my visit.
04/28/2023: Diabetes Management F/U:
Pt is on IV steroids for COPD flare. His OP oral diabetes regimen was initiated yesterday, 1st doses this morning.
He was also started on Lantus- received 10 units @ HS, FBG 257 this AM.
Premeal glucose remains elevated 260 -276. Will increase AC NovoLog to 12 units and increase Lantus to 15 units
Will closely monitor and make necessary adjustments
05/01/2023: Diabetes Management F/U:
Pt doing well, sitting up in bed, oriented to self with limited comprehension of discussion regarding his diabetes.
He remains on IV steroids- Methylpred 20mg IV Q12 hrs for COPD flare.
Glucose remains suboptimal, FBG 194 and premeal 148 to 227
Will increase AC NovoLog to 14 units and increase Lantus to 18 units
Will closely monitor and make necessary adjustments
Diabetes History
- -
Type of Diabetes: 2 requiring insulin
Pre-Admission Diabetes Regimen
05/01/23
04:55
Creatinine 0.7
Lab Results
Hemoglobin A1c 8.5 % (4.0-5.6) H 04/24/23 08:58
Insulin Pump Settings
IP Diabetes Regimen
04/30/23 04/30/23 04/30/23
11:30 15:48 20:50
Glucose
POC Glucose 227 H 194 H 197 H
05/01/23
04:55
Glucose 194 H
POC Glucose
Meal type: Dinner
Meal type: Lunch
Meal type: Breakfast
Amount consumed: 100%
Amount consumed: 100%
Amount consumed: 100%
Patient Education
--- NOTE | 2023-05-01 08:05 | PHA.VAN.FU ---
Vancomycin Assessment / Plan
- Assessment
Renal Function: Stable
In the past 24 hrs, patient has been: Afebrile
Concomitant Antimicrobials: piperacillin/tazobactam
- Dosing Plan
Continue: Vanc 1500mg Q12H
- Monitoring Plan
Level(s) appropriate: Recheck trough at minimum of weekly intervals, Repeat sooner for changes in renal function or clinical status
Next Level Due (Date): ~2/
- Follow Up
Pharmacy will continue to follow.
Vancomycin Follow UP
- -
Patient Age: 62
Patient Sex: Male
Vancomycin Day #: 6
Indication: Other
Requesting Provider: Dr. Zachary Oates / [place]
Pertinent Antimicrobial Allergies:
NKDA
Height / Weight:
Height 5 ft 7 in
Actual Weight 92.5 kg
Pertinent Past Medical History: BMI ~32
- Vital Signs / Lab Results
Temp Pulse Resp BP Pulse Ox
98.3 F 66 18 140/69 98
05/01/23 07:15 05/01/23 07:15 05/01/23 07:15 05/01/23 07:15 05/01/23 07:15
Lab Results - Hematology
04/29/23
07:25
WBC 4.5 L
Lab Results - Chemistry
04/28/23 04/29/23 04/30/23
07:23 07:25 06:36
BUN 28 H 26 H 19
Creatinine 0.9 0.8 0.8
Estimated Creat Clear 91 102 102
05/01/23
04:55
BUN 19
Creatinine 0.7
Estimated Creat Clear 117
Microbiology Results
04/25/23 16:19 Blood Culture - Final
Blood/Venous No Growth - Final Report
04/24/23 07:28 Blood Culture - Final
Blood/Venous No Growth - Final Report
04/24/23 07:15 Blood Culture - Final
Blood/Venous No Growth - Final Report
Therapeutic Drug Monitoring
Vancomycin Peak 27.0 ug/ml (18-26) H 04/27/23 20:42
Vancomycin Trough 12.4 ug/ml (5-20) 04/28/23 05:11
[2023-05-01 08:07] LABS: Glucose - Point of Care 148 mg/dl (70-99)
[2023-05-01] MEDS: NOVOLOG FLEXPEN-MODERATE RESISTANCE SC (08:36)
[2023-05-01] MEDS: NOVOLOG FLEXPEN 12 UNITS SC (08:37)
[2023-05-01] MEDS: GLUCOPHAGE 500 MG PO ×2 (08:37→17:05)
[2023-05-01] MEDS: ZESTRIL 2.5 MG PO (08:37)
[2023-05-01] MEDS: CARDIZEM CD 120 MG PO (08:37)
[2023-05-01] MEDS: DEPAKOTE (12 HR RELEASE) 250 MG PO ×2 (08:37→20:28)
[2023-05-01] MEDS: DEPAKOTE (12 HR RELEASE) 1000 MG PO ×2 (08:37→20:28)
[2023-05-01] MEDS: JANUVIA 100 MG PO (08:38)
[2023-05-01] MEDS: LIPITOR 20 MG PO (08:38)
[2023-05-01] MEDS: SOLU-MEDROL PF 20 MG IV ×2 (08:38→20:28)
[2023-05-01] MEDS: CLARITIN 10 MG PO (08:38)
[2023-05-01] MEDS: PROTONIX 40 MG PO (08:38)
[2023-05-01] MEDS: FLOMAX 0.800000000000000044 MG PO (08:38)
[2023-05-01] MEDS: MUCINEX 1200 MG PO ×2 (08:53→20:28)
--- NOTE | 2023-05-01 09:01 | W.PN.PUL3 ---
Today's Communication / Plan
-
O2
IS
ABx
BiPAP with sleep; NIV upon discharge
Assessment
-
Assessment:
Patient is a 62-year-old male with CRF secondary to OHS. Patient presented to the ED with complaints of SOB and respiratory failure. Upon admission (04/24/2023), patient initially required nasal cannula as he was found to have a RLL pneumonia. On
04/26/2023 patient became less responsive and was placed on BiPAP st/avaps due to hypercapnia with CO2=93. On 04/26/2023 later in the evening, and ABG was drawn again with cO2 of 77. Due to patient's condition he is at risk of worsening of chronic
respiratory failure. BiPAP ST/AVAPS has been tried and failed however patient will require volume ventilation to promote gas exchange via NIV therapy. Patient also requires mouthpiece ventilation for daytime as the pCO2 elevates during the day.
Due to the severity of the patient and the need for daytime mouthpiece ventilation, backup battery, alarms and portability and NIV is required which is not supported by the BiPAP/RAD/BiPAP VAPS device.
Impression:
R basilar pneumonia
Acute on chronic respiratory failure with hypercapnea due to TME in setting of OHS an compounded by use of psychiatric meds and acute illness
Chronic elevation of total serum CO2 since at least 2018
COVID/flu negative
AFib c RVR - rate controlled now
Left facial weakness seen by neurology - suspect TME
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
COVID pneumonia, adm DH July 2019, required brief intubation
Developmental delay
Schizophrenia
COPD
GERD
Hypothyroidism
HTN
DM
KATTY
BPH
Obesity
Former smoker
Plan:
Continue BiPAP 20/7 at night with backup rate 12 and bled with 6L/min, humidifier setting 2
Nasal cannula during day
Titrate O2 flow rate/FiO2 to maintain SpO2 >88%
Checked UDS: negative
No meningeal signs to suspect meningitis
Noted Neurology consultation, negative spot EEG, loaded with valproate as he did not receive his outpatient dosing
R basilar pneumonia
Continue empiric atbs: zosyn and vancomycin which started on adm
MRSA screening positive
ID following
Checked UAgs for strep and legionella: negative
Follow blood cxs (remain negative), ordered sputum cx now that mentation has improved
Acapella as able
Regarding his obesity hypoventilation syndrome:
Patient placed on bilevel AVAPS. ABG on 04/26/2023 after using AVAPS resulted in continued hypercapnia with CO2 at 93. Bilevel AVAPS failed, patient requires EO466 NIV with battery backup in the event of a power outage and alarms to advise of a
disconnect or low respiratory rate not supported by the Bilevel Vaps device.
Patient requires noninvasive volume ventilation with a target tidal volume to promote gas exchange due to CRF and COPD. RAD/BiPAP has been tried and failed as evidenced by ABG with continued hypercapnia on multiple settings. Due to the severity of
the patient and the need for daytime mouthpiece ventilation, backup battery, alarms and portability, an NIV as required which is not supported by the RAD/BiPAP (BiPAP ST, ASV or BiPAP AVAPS).
Reportedly wheezing upon adm
Continue systemic CS for suspected AECOPD: changed prednisone to MP 40 mg IV q12 on 04-26, weaned to 20mg IV q12hr on 04/29
Change prn DNs to levalbuterol tid and prn (*)
(*)New onset AFib c RVR 04-27, paroxysmal
Started on IV diltiazem gtt, now transitioning to po
Not good candidate for OAC at the moment
Will benefit from psychiatry consultation - psych saw pt today
DVT proph, enoxaparin
Pulmonary to continue to follow.
(Patient seen and examined on 05/01/2023).
Diagnostic tests:
CXR 04-30-2023:
Persistent, though improving right lower lobe pneumonia.
Small mild left lower lobe atelectasis, pneumonia, and/or trace pleural effusion appearing to have developed since prior examination.
Persistent, though improving right lower lobe pneumonia.
Small mild left lower lobe atelectasis, pneumonia, and/or trace pleural effusion appearing to have developed since prior examination.
CXR 04-26-23 c/w and Nov 2020: Baseline film mildly rotated with no infiltrates. Current films with progressive R basilar infiltrate
Brain CT and MRI 04-25 and respectively. Mild increase in chronic distension of ventricular system (suspected colpocephaly vs normal pressure hydrocephalus). No acute findings
Subjective Data
-
Date of Service:
Date of Service: May 01, 2023
Chief Complaint: Pulmonary Follow Up
Subjective:
Patient seen today. Saturating 94% on 3 L/min NC. VBG obtained today shows pCO2 71, pH 7.41. Patient refused BiPAP last night. He is pulling 2.5L from IS. He says he feels well.
Review of Systems
General: Other (Negative unless mentioned above)
Objective Data
Data Reviewed
Vital Signs / I&O / Oxygen:
Vital Signs
Temp Pulse Resp BP Pulse Ox
97.8 F 72 18 137/68 95
05/01/23 11:08 05/01/23 11:08 05/01/23 11:08 05/01/23 11:08 05/01/23 11:08
Intake and Output
04/30/23 05/01/23 05/02/23
06:59 06:59 06:59
Intake Total 2770 / 2770 5120 / 5120
Output Total 900 / 900 1100 / 1100
Balance 1870 / 1870 4020 / 4020
SaO2 95
Nasal Cannula flow liters per 3
minute
Physical Exam
General: Respiratory Distress (n), Comfortable and Chills (negative)
HEENT: Normocephalic, Anicteric and Moist Mucous Membranes
Cardiovascular: S1-S2, JVD (n) and Peripheral Edema (negative)
Respiratory: Wheeze (occassionally heard upon expiration), Crackles (bibasilar), Rhonchi (neg), Accessory Resp Muscle Use (neg) and Stridor (n)
GI: Soft, Non Distended and Normal Bowel Sounds
Neurology: Awake, Alert and No Motor Deficits
Skin: Warm and Dry
Labs/Micro/Reports
Lab Data
05/01/23 04:55
Microbiology
04/25/23 16:19 Blood/Venous Blood Culture - Final
No Growth - Final Report
04/24/23 07:28 Blood/Venous Blood Culture - Final
No Growth - Final Report
04/24/23 07:15 Blood/Venous Blood Culture - Final
No Growth - Final Report
[2023-05-01 11:20] LABS: Glucose - Point of Care 220 mg/dl (70-99)
[2023-05-01] MEDS: NOVOLOG FLEXPEN 14 UNITS SC ×2 (11:25→17:04)
[2023-05-01] MEDS: NOVOLOG FLEXPEN-MODERATE RESISTANCE 3 UNITS SC (11:25)
--- NOTE | 2023-05-01 12:09 | W.PN.HOSP.TC ---
Today's Communication/Plan
-
Encourage patient to use Acapella and incentive spirometry
Prefer to discharge patient off of oxygen if possible
BIPAP being set up for discharge
Assessment / Plan
Assessment / Plan
CVS: S1-S2 normal
Chest: rales right base
Abdomen: Soft, NT / Bowel sounds present
Extremities: No edema, normal pulses
Skin-small stage II pressure injury on the nose
62-year-old male from [facility] with shortness of breath.
Chest x-ray reviewed by me-looks better. Fluid in the right fissure, atelectasis
#Right lower lobe pneumonia
Acute hypoxic respiratory insufficiency
�Sepsis -tachycardic/febrile
-Patient presented for new onset of cough/shortness of breath.� Temperature of 102.5 F in ER.
-Chest x-ray showing right lower lobe infiltrates
-COVID/flu negative.� Blood cs neg
-On vancomycin and Zosyn now
-Sputum culture if possible
-Legionella and strep pneumo antigen negative
-ID and Pulm following
# COPD flare
-neb therapy ordered
-on IV solumedrol now, taper
#Acute toxic metabolic encephalopathy - Improved
-Acute on chronic Hypercapnic resp failure and met alkalosis
-Patient on regimen of olanzapine 10 mg at bedtime, hydroxyzine 25 mg at bedtime, divalproex 1250 mg twice daily-now
-Decreased olanzapine/hydroxyzine for now.
-Patient required BiPAP therapy in IMU. Repeat ABG showing improvement on hypercapnia, pulmonology following
-I think he needs BiPAP for discharge considering how his ABG is
-He will be at high risk for readmission otherwise
-Patient agreeable to use 'mask'
# Diabetes on metformin 500 twice daily, Lantus 15 units at bedtime and NovoLog 12 AC plus sliding scale coverage
Also on Januvia as outpatient-continued
# Left facial droop -not noted now
-CVA ruled out
-CT head w/o contrast normal
-MRI brain neg
# Stage II pressure injury on the nose from BiPAP
Wound care and special mask
#Schizophrenia
-Maintained on home medication of divalproex/Fanapt/olanzapine/ hydroxyzine at [facility]
-Fanapt stopped by psyche
-Continue Depakote 1250 twice daily, olanzapine 10 mg at night and hydroxyzine 25 mg at night.
-No behavioral problems
-Psychiatry evaluation appreciated
#Hypotension
-With history of essential HTN
-Hold atenolol
-Patient is on Cardizem, low-dose of lisinopril
# Hyperlipidemia-continue statin
# Parox Afib/RVR
-History of paroxysmal A-fib.
-Off Cardizem drip-p.o. Cardizem
-Does not seem to be on anticoagulation as outpatient
-Echo ejection fraction 70 to 75%, mild
#Acute urinary retention
-Requiring straight cath. Arteaga placed and taken out as patient keep pulling
-Started on Flomax, continue PRN straight cath
# Anemia-normal ferritin and B12
#GERD-PPI
#MRSA
#Hypothyroidism-Synthroid 200 mcg daily
# Developmental delay
Premature baby-2lbs and 9 ounces
# Ambulatory dysfunction-PT OT
# Glaucoma
Decreased vision in the left eye
# Ex-smoker
#DVT PPX - Lovenox
#Full code
Discussed with nursing
Discussed with case management
D/W ID
Encourage patient to use Acapella and incentive spirometry
04/30/23-Spoke to patient's sister and updated
Anticipated Discharge: Within 24 hours
Subjective/Interval History
-
Date of Service: May 01, 2023
Objective Data
-
Labs:
Laboratory Results
05/01/23 05/01/23
04:55 11:31
WBC Pending
Hgb Pending
Hct Pending
Plt Count Pending
Sodium 135
Potassium 4.3
Chloride 93 L
Carbon Dioxide 36 H
BUN 19
Creatinine 0.7
Glucose 194 H
Calcium 9.0
Vital Signs:
Vital Signs
Temp Pulse Resp BP Pulse Ox
97.8 F 72 18 137/68 95
05/01/23 11:08 05/01/23 11:08 05/01/23 11:08 05/01/23 11:08 05/01/23 11:08
I&O
04/30/23 05/01/23 05/02/23
06:59 06:59 06:59
Intake Total 2770 / 2770 5120 / 5120
Output Total 900 / 900 1100 / 1100
Balance 1870 / 1870 4020 / 4020
[2023-05-01 12:40] LABS: Hematocrit 35.9 % (39.0-52.0); Hemoglobin 12.1 g/dL (13.0-18.0); Mean Corp Hgb Conc. 33.7 g/dL (33.0-37.0); Mean Corpuscular Hgb 32.7 pg (27.0-31.0); Platelet Count 234 10^3/uL (130-400); Red Cell Dist. Width 13.3 % (11.5-14.5); White Blood Cell Count 7.8 10^3/uL (4.8-10.8)
[2023-05-01] MEDS: LASIX 40 MG IV (12:59)
--- NOTE | 2023-05-01 13:19 | W.PN.ID1 ---
Date of Service
Date of Service: May 01, 2023
Today's Communication
Transition to PO Augmentin and doxy.
Assessment / Plan
Right-sided pneumonia
- CAP vs aspiration vs MRSA
Encephalopathy
- improved
Fever
S/P Respiratory failure
Schizophrenia
COPD
GERD
Hypothyroidism
HTN
Recommendations:
Overall appears clinically stable.
Transition to Augmentin and doxycycline for an additional 5 days.
Continue aspiration precautions.
Continue with supportive measures.
Follow-up chest x-ray in 4 to 6 weeks.
����������������������������������������������������������
Chief Complaint
-: Pneumonia (Right lower lobe)
Subjective / Review of Systems
Review of Systems: No Fever and No Chills
Vital Signs / Physical Exam
Vital Signs
Vital Signs
Temp Pulse Resp BP Pulse Ox
97.8 F 72 18 137/68 95
05/01/23 11:08 05/01/23 12:59 05/01/23 11:08 05/01/23 12:59 05/01/23 11:08
Physical Exam
Physical Exam:
Constitutional: No Acute Distress, Comfortable, Chronically Ill and Non-toxic
Eyes: No Conjunctival Hemorrhage and Sclera Anicteric
Cardiovascular: Regular Rate and S1/S2; Negative S3/S4
Pulmonary: Clear; Negative Wheezes or Rales
Gastrointestinal: Soft and Non Tender
Neurological: Awake, Alert and Oriented
Psychological: Calm
Objective Data
Lab Data
Lab Results
05/01/23 12:13
05/01/23 04:55
ESR 43 mm/hour (0-20) H 04/26/23 05:32
Estimated Creat Clear 117 ml/min 05/01/23 04:55
Lactic Acid Cancelled 04/25/23 01:01
Total Bilirubin 0.4 mg/dl (0.2-1.3) 04/26/23 05:32
AST 23 U/L (17-59) 04/26/23 05:32
ALT 18 U/L (0-50) 04/26/23 05:32
Alkaline Phosphatase 54 U/L (38-126) 04/26/23 05:32
Most recent labs reviewed.
Micro Results:
04/25/23 16:19 Blood Culture - Final
Blood/Venous No Growth - Final Report
04/24/23 07:28 Blood Culture - Final
Blood/Venous No Growth - Final Report
04/24/23 07:15 Blood Culture - Final
Blood/Venous No Growth - Final Report
04/24/23 16:41 MRSA Screen - Final
Nose Staph aureus MRSA
04/26/23 17:57 Legionella Urinary Antigen - Final
Urine Negative for Legionella pneumophila Serogroup 1 antigen.
A negative result does not rule out the possiblity of
Legionella infection due to other serogroups or species of
Legionella. Clinical correlation is recommended.
Streptococcus pneumoniae Antigen (M - Final
Negative for Streptococcus pneumoniae antigen.
A negative result does not exclude infection with
Streptococcus pneumoniae. Clinical correlation is
recommended.
04/24/23 07:00 Influenza Types A & B (CELINA) - Final
Nasal Swab Negative for Influenza A & B, NAAT
Negative results must be combined with clinical observations
and patient history.
Nucleic Acid Amplification test (NAAT)performed on the
[employer] platform.
Imaging:
04/22/2023 CXR (portable): There is persistent right base opacity consistent with pneumonia. This is slightly worsened from a prior CXR. There is increased stranding in the right upper lung zone. Findings most consistent with right upper and right
lower lobe pneumonia. Please see full dictation for additional detail. Film personally viewed.
--- NOTE | 2023-05-01 16:09 | CM ---
Reviewed the chart notes and spoke with the patient at the bedside. IMM signed and placed on the chart. Precert in process for BiPAP through [employer]. CM continues to be available to patient/family and is monitoring medical plan for needs at
discharge.
Plan: Discharge back to [facility] with BiPAP when medically stable.
[2023-05-01 16:59] LABS: Glucose - Point of Care 190 mg/dl (70-99)
[2023-05-01] MEDS: LOVENOX 40 MG SC (17:04)
[2023-05-01] MEDS: NOVOLOG FLEXPEN-MODERATE RESISTANCE 1 UNITS SC (17:04)
[2023-05-01] MEDS: ATARAX 25 MG PO (17:05)
[2023-05-01] MEDS: ZYPREXA 20 MG PO (20:28)
[2023-05-01] MEDS: AUGMENTIN 875 MG/125 MG 1 TABLET PO (20:28)
[2023-05-01] MEDS: VIBRAMYCIN 100 MG PO (20:28)
[2023-05-01] MEDS: NON-FORMULARY ITEM 12 MG PO (20:29)
[2023-05-01 21:37] LABS: Glucose - Point of Care 226 mg/dl (70-99)
[2023-05-01] MEDS: LANTUS 0.179999999999999993 UNITS SC (21:40)
[2023-05-02 03:26] VITALS: BP 186/97
[2023-05-02 07:00] VITALS: BP 159/83
[2023-05-02] MEDS: XOPENEX 1.25 MG INHALANT SOLUTION INH ×3 (07:15→20:28)
--- NOTE | 2023-05-02 07:20 | PN.DE.MGMTRT ---
Insulin Management
- -
04/27/2023 Diabetes Management Consult
Patient admitted 04/24 with increasing SOB, pneumonia. PMH includes schizophrenia, HTN, hypothyroid, COPD, GERD. Prior to admission his diabetes medication included ss NovoLog ac, Januvia 100 mg daily, metformin 500 mg BID. A1C 8.5%, cr .8, egfr
>60.
Patient is awake and alert but confused. Glucose has been > 200.
Will restart metformin 500 mg BID first dose with dinner, and Januvia 100 mg daily first dose tomorrow. Will add Lantus 10 units @ hs.
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
04/28/2023: Diabetes Management F/U:
Pt is on IV steroids for COPD flare. His OP oral diabetes regimen was initiated yesterday, 1st doses this morning.
He was also started on Lantus- received 10 units @ HS, FBG 257 this AM.
Premeal glucose remains elevated 260 -276. Will increase AC NovoLog to 12 units and increase Lantus to 15 units
Will closely monitor and make necessary adjustments
05/01/2023: Diabetes Management F/U:
Pt doing well, sitting up in bed, oriented to self with limited comprehension of discussion regarding his diabetes.
He remains on IV steroids- Methylpred 20mg IV Q12 hrs for COPD flare.
Glucose remains suboptimal, FBG 194 and premeal 148 to 227
Will increase AC NovoLog to 14 units and increase Lantus to 18 units
Will closely monitor and make necessary adjustments
05/02/2023 Diabetes Management Follow up
Novolog increased yesterday to 14 units AC, continued to require corrective insulin. Will increase AC novolog to 16 units. Will make no change to HS lantus 18 units as fasting glucose not yet reported.
Diabetes History
- -
Type of Diabetes: 2
Pre-Admission Diabetes Regimen
Lab Results
Hemoglobin A1c 8.5 % (4.0-5.6) H 04/24/23 08:58
Insulin Pump Settings
IP Diabetes Regimen
05/01/23 05/01/23 05/01/23
08:05 11:18 16:59
POC Glucose 148 H 220 H 190 H
05/01/23
21:35
POC Glucose 226 H
Meal type: Dinner
Meal type: Lunch
Meal type: Breakfast
Amount consumed: 100%
Amount consumed: 100%
Amount consumed: 100%
Patient Education
[2023-05-02 07:26] LABS: Glucose - Point of Care 194 mg/dl (70-99)
[2023-05-02] MEDS: SYNTHROID 200 MCG PO (08:29)
[2023-05-02] MEDS: FLOMAX 0.800000000000000044 MG PO (09:07)
[2023-05-02] MEDS: DEPAKOTE (12 HR RELEASE) 1000 MG PO ×2 (09:08→20:20)
[2023-05-02] MEDS: DEPAKOTE (12 HR RELEASE) 250 MG PO ×2 (09:09→20:19)
[2023-05-02] MEDS: CARDIZEM CD 120 MG PO (09:09)
[2023-05-02] MEDS: VIBRAMYCIN 100 MG PO ×2 (09:10→20:20)
[2023-05-02] MEDS: GLUCOPHAGE 500 MG PO (09:10)
[2023-05-02] MEDS: PROTONIX 40 MG PO (09:10)
[2023-05-02] MEDS: MUCINEX 1200 MG PO ×2 (09:10→20:20)
[2023-05-02] MEDS: CLARITIN 10 MG PO (09:10)
[2023-05-02] MEDS: JANUVIA 100 MG PO (09:11)
[2023-05-02] MEDS: AUGMENTIN 875 MG/125 MG 1 TABLET PO ×2 (09:11→20:19)
[2023-05-02] MEDS: ZESTRIL 2.5 MG PO ×2 (09:11→11:46)
[2023-05-02] MEDS: LIPITOR 20 MG PO (09:11)
[2023-05-02] MEDS: SOLU-MEDROL PF 20 MG IV (09:12)
[2023-05-02] MEDS: NOVOLOG FLEXPEN-MODERATE RESISTANCE 1 UNITS SC ×2 (09:14→11:45)
[2023-05-02] MEDS: NOVOLOG FLEXPEN 16 UNITS SC ×3 (09:14→17:10)
--- NOTE | 2023-05-02 10:26 | W.PN.HOSP.TC ---
Today's Communication/Plan
-
Wean oxygen if we can place patient on room air
Encourage using incentive spirometry and Acapella
Once labs are back today we will decide if he needs some more Lasix
Case management working on getting BiPAP
If set up hopefully we can discharge him tomorrow.
Assessment / Plan
Assessment / Plan
CVS: S1-S2 normal
Chest: rales right base
Abdomen: Soft, NT / Bowel sounds present
Extremities: No edema, normal pulses
Skin-small stage II pressure injury on the nose
62-year-old male from [place] with shortness of breath.
Chest x-ray reviewed by me-looks better. Fluid in the right fissure, atelectasis
#Right lower lobe pneumonia
Acute hypoxic respiratory insufficiency
�Sepsis -tachycardic/febrile
-Patient presented for new onset of cough/shortness of breath.� Temperature of 102.5 F in ER.
-Chest x-ray showing right lower lobe infiltrates
-COVID/flu negative.� Blood cs neg
-Off vancomycin and Zosyn -On Doxy and Amoxicillin now.
-Sputum culture if possible
-Legionella and strep pneumo antigen negative
-ID and Pulm following
# COPD flare
-Neb therapy ordered
-On IV solumedrol now, taper to po
#Acute toxic metabolic encephalopathy - Improved
-Acute on chronic Hypercapnic resp failure and met alkalosis
-Patient on regimen of olanzapine 10 mg at bedtime, hydroxyzine 25 mg at bedtime, divalproex 1250 mg twice daily-now
-Decreased olanzapine/hydroxyzine for now.
-Patient required BiPAP therapy in IMU. Repeat ABG showing improvement on hypercapnia, pulmonology following
-I think he needs BiPAP for discharge considering how his ABG is
-He will be at high risk for readmission otherwise
-Patient agreeable to use 'mask'
# Diabetes on metformin change to 1000 twice daily, Lantus 18 units at bedtime and NovoLog 16 AC plus sliding scale coverage
Also on Januvia as outpatient-continued
# Left facial droop -not noted now
-CVA ruled out
-CT head w/o contrast normal
-MRI brain neg
# Stage II pressure injury on the nose from BiPAP
Wound care and special mask
#Schizophrenia
-Maintained on home medication of divalproex/Fanapt/olanzapine/ hydroxyzine at [place]
-Fanapt stopped by psyche
-Continue Depakote 1250 twice daily, olanzapine 10 mg at night and hydroxyzine 25 mg at night.
-No behavioral problems
-Psychiatry evaluation appreciated
#Hypotension
-With history of essential HTN
-Hold atenolol
-Patient is on Cardizem, low-dose of lisinopril- in crease to 5 mg
# Hyperlipidemia-continue statin
# Parox Afib/RVR
-History of paroxysmal A-fib.
-Off Cardizem drip-p.o. Cardizem
-Does not seem to be on anticoagulation as outpatient
-Echo ejection fraction 70 to 75%, mild
#Acute urinary retention
-Requiring straight cath. Arteaga placed and taken out as patient keep pulling
-Started on Flomax, continue PRN straight cath
# Anemia-normal ferritin and B12
#GERD-PPI
#MRSA
#Hypothyroidism-Synthroid 200 mcg daily
# Developmental delay
Premature baby-2lbs and 9 ounces
# Ambulatory dysfunction-PT OT
# Glaucoma
Decreased vision in the left eye
# Ex-smoker
#DVT PPX - Lovenox
#Full code
Discussed with nursing
Discussed with case management
Encourage patient to use Acapella and incentive spirometry
04/30/23- and 05/02/23-Spoke to patient's sister and updated
Anticipated Discharge: Within 24 hours
Subjective/Interval History
-
Date of Service: May 02, 2023
Objective Data
-
Labs:
Laboratory Results
05/02/23
10:04
Sodium Pending
Potassium Pending
Chloride Pending
Carbon Dioxide Pending
BUN Pending
Creatinine Pending
Glucose Pending
Calcium Pending
Vital Signs:
Vital Signs
Temp Pulse Resp BP Pulse Ox
97.4 F 88 15 159/83 94
05/02/23 07:00 05/02/23 09:11 05/02/23 07:17 05/02/23 09:11 05/02/23 07:17
I&O
05/01/23 05/02/23 05/03/23
06:59 06:59 06:59
Intake Total 5120 / 5120 5180 / 5180
Output Total 1100 / 1100 605 / 605
Balance 4020 / 4020 4575 / 4575
--- NOTE | 2023-05-02 10:38 | W.PN.PUL3 ---
Today's Communication / Plan
-
O2 - walk test prior to discharge to assess needs
IS
ABx per ID
BiPAP with sleep; NIV upon discharge
Assessment
-
Assessment:
Patient is a 62-year-old male with CRF secondary to OHS. Patient presented to the ED with complaints of SOB and respiratory failure. Upon admission (04/24/2023), patient initially required nasal cannula as he was found to have a RLL pneumonia. On
04/26/2023 patient became less responsive and was placed on BiPAP st/avaps due to hypercapnia with CO2=93. On 04/26/2023 later in the evening, and ABG was drawn again with cO2 of 77. Due to patient's condition he is at risk of worsening of chronic
respiratory failure. BiPAP ST/AVAPS has been tried and failed however patient will require volume ventilation to promote gas exchange via NIV therapy. Patient also requires mouthpiece ventilation for daytime as the pCO2 elevates during the day.
Due to the severity of the patient and the need for daytime mouthpiece ventilation, backup battery, alarms and portability and NIV is required which is not supported by the BiPAP/RAD/BiPAP VAPS device.
Impression:
R basilar pneumonia with acute COPD exacerbation
Acute on chronic respiratory failure with hypercapnea due to TME in setting of OHS an compounded by use of psychiatric meds and acute illness
Acute respiratory failure with hypoxemia on supplemental oxygen
Chronic elevation of total serum CO2 since at least 2018
COVID/flu negative
AFib c RVR - rate controlled now
Left facial weakness seen by neurology - suspect TME
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
COVID pneumonia, adm DH July 2019, required brief intubation
Developmental delay
Schizophrenia
COPD
GERD
Hypothyroidism
HTN
DM
KATTY
BPH
Obesity
Former smoker
Plan:
Continue BiPAP 20/7 at night with backup rate 12 and bled with 6L/min, humidifier setting 2
Nasal cannula during day --> would walk patient to assess O2 needs with official ambulatory pulse ox by RT on day or two before discharge
Titrate O2 flow rate/FiO2 to maintain SpO2 >88%
Checked UDS: negative
No meningeal signs to suspect meningitis
Noted Neurology consultation, negative spot EEG, loaded with valproate as he did not receive his outpatient dosing
R basilar pneumonia
Continue empiric atbs: zosyn and vancomycin which started on adm --> ID changed to Augmentin + Doxy starting on 05/01
MRSA screening positive
ID following
Checked UAgs for strep and legionella: negative
Follow blood cxs (remain negative), ordered sputum cx now that mentation has improved
Acapella
Regarding his obesity hypoventilation syndrome:
Patient placed on bilevel AVAPS. ABG on 04/26/2023 after using AVAPS resulted in continued hypercapnia with CO2 at 93. Bilevel AVAPS failed, patient requires EO466 NIV with battery backup in the event of a power outage and alarms to advise of a
disconnect or low respiratory rate not supported by the Bilevel Vaps device.
Patient requires noninvasive volume ventilation with a target tidal volume to promote gas exchange due to CRF and COPD. RAD/BiPAP has been tried and failed as evidenced by ABG with continued hypercapnia on multiple settings. Due to the severity of
the patient and the need for daytime mouthpiece ventilation, backup battery, alarms and portability, an NIV as required which is not supported by the RAD/BiPAP (BiPAP ST, ASV or BiPAP AVAPS).
Reportedly wheezing upon adm
Continue systemic CS for suspected AECOPD: changed prednisone to MP 40 mg IV q12 on 04-26, weaned to 20mg IV q12hr on 04/29 --> ok to start prednisone 40mg and reduce by 10mg every 3rd day until off
Continue xopenex (TID and prn)
(*)New onset AFib c RVR 04-27, paroxysmal
Started on IV diltiazem gtt, now on PO cardizem
Not good candidate for OAC at the moment
Will benefit from psychiatry consultation - psych saw pt yesterday - Continue Zyprexa HS
DVT proph, enoxaparin
Pulmonary to continue to follow.
Diagnostic tests:
CXR 04-30-2023:
Persistent, though improving right lower lobe pneumonia.
Small mild left lower lobe atelectasis, pneumonia, and/or trace pleural effusion appearing to have developed since prior examination.
Persistent, though improving right lower lobe pneumonia.
Small mild left lower lobe atelectasis, pneumonia, and/or trace pleural effusion appearing to have developed since prior examination.
CXR 04-26-23 c/w and Nov 2020: Baseline film mildly rotated with no infiltrates. Current films with progressive R basilar infiltrate
Brain CT and MRI 04-25 and respectively. Mild increase in chronic distension of ventricular system (suspected colpocephaly vs normal pressure hydrocephalus). No acute findings
Subjective Data
-
Date of Service:
Date of Service: May 02, 2023
Chief Complaint: Pulmonary Follow Up
Subjective:
Seen this morning. Sitting in chair eating breakfast. Saturating 95% on 1 L/min nasal cannula. He has no complaints. He again refused BiPAP last night.
Review of Systems
General: Other (Negative unless mentioned above)
Objective Data
Data Reviewed
Vital Signs / I&O / Oxygen:
Vital Signs
Temp Pulse Resp BP Pulse Ox
97.4 F 88 15 159/83 94
05/02/23 07:00 05/02/23 09:11 05/02/23 07:17 05/02/23 09:11 05/02/23 07:17
Intake and Output
05/01/23 05/02/23 05/03/23
06:59 06:59 06:59
Intake Total 5120 / 5120 5180 / 5180
Output Total 1100 / 1100 605 / 605
Balance 4020 / 4020 4575 / 4575
SaO2 94
Nasal Cannula flow liters per 2
minute
Physical Exam
General: Respiratory Distress (n), Comfortable and Chills (negative)
HEENT: Normocephalic, Anicteric and Moist Mucous Membranes
Cardiovascular: S1-S2, JVD (n) and Peripheral Edema (negative)
Respiratory: Wheeze (occasionally heard upon expiration), Crackles (bibasilar), Rhonchi (neg), Accessory Resp Muscle Use (neg) and Stridor (n)
GI: Soft, Non Distended and Normal Bowel Sounds
Neurology: Awake, Alert and No Motor Deficits
Skin: Warm and Dry
Labs/Micro/Reports
Lab Data
05/01/23 12:13
Microbiology
04/25/23 16:19 Blood/Venous Blood Culture - Final
No Growth - Final Report
04/24/23 07:28 Blood/Venous Blood Culture - Final
No Growth - Final Report
04/24/23 07:15 Blood/Venous Blood Culture - Final
No Growth - Final Report
[2023-05-02 10:42] LABS: Blood Urea Nitrogen 20 mg/dl (9-20); Calcium 9.7 mg/dl (8.4-10.2); Chloride 89 mmol/L (98-107); Estimated Creatinine Clearance 102 ml/min; Glucose 208 mg/dl (70-99); Magnesium 1.7 mg/dl (1.6-2.3); Potassium 4.1 mmol/L (3.5-5.1); Sodium 134 mmol/L (135-145); eGFR > 60.00
[2023-05-02 11:00] LABS: Carbon Dioxide 38 mmol/L (22-30)
--- NOTE | 2023-05-02 11:16 | W.PN.UPDATE ---
Update Note
Progress Note Update
Patient seen sitting up in the chair in his room, chart reviewed, discussed with staff. No acute distress, he is alert, cooperative, and pleasant with no signs of active psychosis. He tells me his breathing is better but 'when it gets smokey it is
bad'. Tells me his friend will be taking him home soon. Denies any issues, side effects, EPS/TD symptoms although insight is limited.
Impression/Plan::� Schizophrenia, stable on established Zyprexa, will continue at 20mg HS. Fanapt held and would continue to hold. Will follow peripherally.
[2023-05-02 11:32] VITALS: BP 135/82
[2023-05-02 11:32] LABS: Glucose - Point of Care 163 mg/dl (70-99)
--- NOTE | 2023-05-02 14:11 | W.PN.ID1 ---
Date of Service
Date of Service: May 02, 2023
Today's Communication
Continue current course of antibiotics.
Assessment / Plan
Right-sided pneumonia
- CAP vs aspiration vs MRSA
Encephalopathy
- improved
Fever
S/P Respiratory failure
Schizophrenia
COPD
GERD
Hypothyroidism
HTN
Recommendations:
Overall appears clinically stable.
Continue Augmentin and doxycycline for an additional 4 days.
Continue aspiration precautions.
Continue with supportive measures.
Follow-up chest x-ray in 4 to 6 weeks.
����������������������������������������������������������
Chief Complaint
-: Pneumonia (Right lower lobe)
Subjective / Review of Systems
Review of Systems: No Fever, No Chills, Cough, No Sputum Production and No Abdominal Pain
Vital Signs / Physical Exam
Vital Signs
Vital Signs
Temp Pulse Resp BP Pulse Ox
97.5 F 90 14 135/82 93
05/02/23 11:32 05/02/23 13:08 05/02/23 13:08 05/02/23 11:46 05/02/23 12:01
Physical Exam
Constitutional: No Acute Distress, Comfortable, Chronically Ill and Non-toxic
Eyes: Sclera Anicteric
Cardiovascular: S1/S2; Negative S3/S4
Pulmonary: Coarse and Non Labored
Gastrointestinal: Soft and Non Tender
Neurological: Awake and Alert
Psychological: Calm
Objective Data
Lab Data
Lab Results
05/01/23 12:13
05/02/23 10:04
ESR 43 mm/hour (0-20) H 04/26/23 05:32
Estimated Creat Clear 102 ml/min 05/02/23 10:04
Lactic Acid Cancelled 04/25/23 01:01
Total Bilirubin 0.4 mg/dl (0.2-1.3) 04/26/23 05:32
AST 23 U/L (17-59) 04/26/23 05:32
ALT 18 U/L (0-50) 04/26/23 05:32
Alkaline Phosphatase 54 U/L (38-126) 04/26/23 05:32
Most recent labs reviewed.
Micro Results:
04/25/23 16:19 Blood Culture - Final
Blood/Venous No Growth - Final Report
04/24/23 07:28 Blood Culture - Final
Blood/Venous No Growth - Final Report
04/24/23 07:15 Blood Culture - Final
Blood/Venous No Growth - Final Report
04/24/23 16:41 MRSA Screen - Final
Nose Staph aureus MRSA
04/26/23 17:57 Legionella Urinary Antigen - Final
Urine Negative for Legionella pneumophila Serogroup 1 antigen.
A negative result does not rule out the possiblity of
Legionella infection due to other serogroups or species of
Legionella. Clinical correlation is recommended.
Streptococcus pneumoniae Antigen (M - Final
Negative for Streptococcus pneumoniae antigen.
A negative result does not exclude infection with
Streptococcus pneumoniae. Clinical correlation is
recommended.
04/24/23 07:00 Influenza Types A & B (CELINA) - Final
Nasal Swab Negative for Influenza A & B, NAAT
Negative results must be combined with clinical observations
and patient history.
Nucleic Acid Amplification test (NAAT)performed on the
[place] platform.
Imaging:
04/22/2023 CXR (portable): There is persistent right base opacity consistent with pneumonia. This is slightly worsened from a prior CXR. There is increased stranding in the right upper lung zone. Findings most consistent with right upper and right
lower lobe pneumonia. Please see full dictation for additional detail. Film personally viewed.
[2023-05-02 15:15] VITALS: BP 138/66
[2023-05-02] MEDS: DELTASONE 40 MG PO (16:00)
[2023-05-02 17:05] LABS: Glucose - Point of Care 261 mg/dl (70-99)
[2023-05-02] MEDS: GLUCOPHAGE 1000 MG PO (17:09)
[2023-05-02] MEDS: NOVOLOG FLEXPEN-MODERATE RESISTANCE 5 UNITS SC (17:10)
[2023-05-02] MEDS: ATARAX 25 MG PO (17:17)
[2023-05-02] MEDS: LOVENOX 40 MG SC (17:17)
[2023-05-02 19:40] VITALS: BP 111/69
[2023-05-02] MEDS: NON-FORMULARY ITEM 12 MG PO (20:20)
[2023-05-02 21:38] LABS: Glucose - Point of Care 140 mg/dl (70-99)
[2023-05-02] MEDS: ZYPREXA 20 MG PO (21:38)
[2023-05-02] MEDS: LANTUS 0.179999999999999993 UNITS SC (21:38)
[2023-05-02] MEDS: TYLENOL 650 MG PO (22:06)
[2023-05-02 23:48] VITALS: BP 139/74
[2023-05-03] VITALS (7 sets, daily range): BP systolic 104–146; BP diastolic 60–81; PULSE 82; O2SAT 95
[2023-05-03] MEDS: SYNTHROID 200 MCG PO (06:07)
[2023-05-03] MEDS: XOPENEX 1.25 MG INHALANT SOLUTION INH ×2 (07:19→13:27)
[2023-05-03 07:50] LABS: Glucose - Point of Care 136 mg/dl (70-99)
[2023-05-03] MEDS: NOVOLOG FLEXPEN-MODERATE RESISTANCE SC (07:55)
[2023-05-03] MEDS: NOVOLOG FLEXPEN 16 UNITS SC ×3 (07:55→17:40)
[2023-05-03] MEDS: CLARITIN 10 MG PO (07:57)
[2023-05-03] MEDS: MUCINEX 1200 MG PO (07:57)
[2023-05-03] MEDS: FLOMAX 0.800000000000000044 MG PO (07:58)
[2023-05-03] MEDS: JANUVIA 100 MG PO (07:58)
[2023-05-03] MEDS: PROTONIX 40 MG PO (07:58)
[2023-05-03] MEDS: DEPAKOTE (12 HR RELEASE) 250 MG PO ×2 (07:58→20:14)
[2023-05-03] MEDS: DELTASONE 40 MG PO (07:58)
[2023-05-03] MEDS: GLUCOPHAGE 1000 MG PO ×2 (07:58→17:39)
[2023-05-03] MEDS: LIPITOR 20 MG PO (07:58)
[2023-05-03] MEDS: VIBRAMYCIN 100 MG PO ×2 (07:58→20:15)
[2023-05-03] MEDS: DEPAKOTE (12 HR RELEASE) 1000 MG PO ×2 (07:58→20:14)
[2023-05-03] MEDS: AUGMENTIN 875 MG/125 MG 1 TABLET PO ×2 (07:58→20:14)
--- NOTE | 2023-05-03 08:06 | PN.DE.MGMTRT ---
Insulin Management
- -
04/27/2023 Diabetes Management Consult
Patient admitted 04/24 with increasing SOB, pneumonia. PMH includes schizophrenia, HTN, hypothyroid, COPD, GERD. Prior to admission his diabetes medication included ss NovoLog ac, Januvia 100 mg daily, metformin 500 mg BID. A1C 8.5%, cr .8, egfr
>60.
Patient is awake and alert but confused. Glucose has been > 200.
Will restart metformin 500 mg BID first dose with dinner, and Januvia 100 mg daily first dose tomorrow. Will add Lantus 10 units @ hs.
Discussed with patient Environmental Monitoring Technician who was with patient at time of my visit.
04/28/2023: Diabetes Management F/U:
Pt is on IV steroids for COPD flare. His OP oral diabetes regimen was initiated yesterday, 1st doses this morning.
He was also started on Lantus- received 10 units @ HS, FBG 257 this AM.
Premeal glucose remains elevated 260 -276. Will increase AC NovoLog to 12 units and increase Lantus to 15 units
Will closely monitor and make necessary adjustments
05/01/2023: Diabetes Management F/U:
Pt doing well, sitting up in bed, oriented to self with limited comprehension of discussion regarding his diabetes.
He remains on IV steroids- Methylpred 20mg IV Q12 hrs for COPD flare.
Glucose remains suboptimal, FBG 194 and premeal 148 to 227
Will increase AC NovoLog to 14 units and increase Lantus to 18 units
Will closely monitor and make necessary adjustments
05/02/2023 Diabetes Management Follow up
Novolog increased yesterday to 14 units AC, continued to require corrective insulin. Will increase AC novolog to 16 units. Will make no change to HS lantus 18 units as fasting glucose not yet reported.
05/03/2023 Diabetes Management Follow up
AC novolog increased yesterday to 16 units, glucose 261 pre dinner requiring correction insulin, glucose improved, 140 @ HS. Will continue 16 units novolog AC. Received lantus 18 units @ HS, fasting glucose 136. Will make no change to lantus
dose.
Diabetes History
- -
Type of Diabetes: 2 requiring insulin
Pre-Admission Diabetes Regimen
05/02/23
10:04
Creatinine 0.8
Lab Results
Hemoglobin A1c 8.5 % (4.0-5.6) H 04/24/23 08:58
Insulin Pump Settings
IP Diabetes Regimen
05/02/23 05/02/23 05/02/23
10:04 11:30 17:04
Glucose 208 H
POC Glucose 163 H 261 H
05/02/23 05/03/23
21:36 07:49
Glucose
POC Glucose 140 H 136 H
Meal type: Lunch
Meal type: Breakfast
Amount consumed: 90%
Amount consumed: 100%
Patient Education
[2023-05-03] MEDS: CARDIZEM CD 120 MG PO (08:11)
--- NOTE | 2023-05-03 09:04 | EDCM ---
Patient had home oxygen evaluation this morning. Per Respiratory, patient qualifies for 2 Liters O2 at rest and with ambulation
--- NOTE | 2023-05-03 09:09 | CM ---
Addendum entered by Adeline Gonzalez 05/03/23 13:02:
Notified Attending via [place] Text. Text acknowledged
re: Per Prema @ [facility], the BiPAP device will be delivered to the [facility] on day of discharge. The vendor requests that the patient be discharged before 2 PM tomorrow.
Prema was provided contact information to speak with one of the LPNs at the Home
Addendum entered by Adeline Gonzalez 05/03/23 12:46:
Per Attending, patient will be discharged tomorrow.
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 Their contact number is on the chart #[phone]. Ask for Elizabeth or Ollie.
JESSICA called Home and spoke with SHINGLER, Elizabeth Bolton; she was instructed to have their transport person bring a Portable O2 tank for patient.
As of 12:50 today, the BiPAP device has not been delivered
Per Respiratory ONCOLOGY NAVIGATOR, patient refused to wear BiPAP the last 3 nights; but previous to the last 3, patient did wear it
Original Note:
Home Oxygen assessment completed. Per Respiratory ONCOLOGY NAVIGATOR, patient qualifies for O2 2 liters at rest and with ambulation
Per previous CM initial assessment, patient has oxygen and a concentrator at the [facility]
--- NOTE | 2023-05-03 10:04 | W.PN.UPDATE ---
Update Note
Progress Note Update
patient seen chart reviewed the patient has hx schizoaffectve d/o. he is living in a senior living in [place] which he says he does not really like. he has been there for some years. noted that fanapt was to be dc'ed as per dr giron. it was
continued. the patient says he is sleepy all the time. will dc and reasses in the am. he is already on 20 mg zyprexa which is the top dose.
--- NOTE | 2023-05-03 11:13 | W.PN.HOSP.TC ---
Today's Communication/Plan
-
He feels dizzy this morning also felt slightly short of breath with ambulation
Hold lisinopril
Continue steroids and nebulizer treatments
He may need home oxygen to be set up
If stable and oxygen and BiPAP will be set up can be discharged tomorrow.
Assessment / Plan
Assessment / Plan
CVS: S1-S2 normal
Chest: rales right base
Abdomen: Soft, NT / Bowel sounds present
Extremities: No edema, normal pulses
Skin-small stage II pressure injury on the nose
62-year-old male from long term with shortness of breath.
Chest x-ray reviewed by me-looks better. Fluid in the right fissure, atelectasis
#Right lower lobe pneumonia
Acute hypoxic respiratory insufficiency
�Sepsis -tachycardic/febrile
-Patient presented for new onset of cough/shortness of breath.� Temperature of 102.5 F in ER.
-Chest x-ray showing right lower lobe infiltrates
-COVID/flu negative.� Blood cs neg
-Off vancomycin and Zosyn -On Doxy and Amoxicillin now.
-Sputum culture if possible
-Legionella and strep pneumo antigen negative
-ID and Pulm
# COPD flare
-Neb therapy ordered
-On IV solumedrol , taper to po
#Acute toxic metabolic encephalopathy - Improved
-Acute on chronic Hypercapnic resp failure and met alkalosis
-Patient on regimen of olanzapine 10 mg at bedtime, hydroxyzine 25 mg at bedtime, divalproex 1250 mg twice daily-now
-Decreased olanzapine/hydroxyzine for now.
-Patient required BiPAP therapy in IMU. Repeat ABG showing improvement on hypercapnia, pulmonology following
-I think he needs BiPAP for discharge considering how his ABG is
-He will be at high risk for readmission otherwise
-Patient agreeable to use 'mask'
# Diabetes on metformin change to 1000 twice daily, Lantus 18 units at bedtime and NovoLog 16 AC plus sliding scale coverage
Also on Januvia as outpatient-continued
# Left facial droop -not noted now
-CVA ruled out
-CT head w/o contrast normal
-MRI brain neg
# Stage II pressure injury on the nose from BiPAP
Wound care and special mask
#Schizophrenia
-Maintained on home medication of divalproex/Fanapt/olanzapine/ hydroxyzine at [place]
-Fanapt stopped by psyche
-Continue Depakote 1250 twice daily, olanzapine 10 mg at night and hydroxyzine 25 mg at night.
-No behavioral problems
-Psychiatry evaluation appreciated
#Hypotension
-With history of essential HTN
-Stopped atenolol
-Patient is on Cardizem, low-dose of lisinopril- Hold
# Hyperlipidemia-continue statin
# Parox Afib/RVR
-History of paroxysmal A-fib.
-Off Cardizem drip-p.o. Cardizem
-Does not seem to be on anticoagulation as outpatient
-Echo ejection fraction 70 to 75%, mild
#Acute urinary retention
-Requiring straight cath. Arteaga placed and taken out as patient keep pulling
-Started on Flomax, continue PRN straight cath
# Anemia-normal ferritin and B12
#GERD-PPI
#MRSA
#Hypothyroidism-Synthroid 200 mcg daily
# Developmental delay
Premature baby-2lbs and 9 ounces
# Ambulatory dysfunction-PT OT
# Glaucoma
Decreased vision in the left eye
# Ex-smoker
#DVT PPX - Lovenox
#Full code
Discussed with nursing
Encourage patient to use Acapella and incentive spirometry
04/30/23- and 05/02/23-Spoke to patient's sister and updated
Patient is in need of oxygen at 2 liters/minute via nasal cannula continuously due to pulse oximetry of 87% on room air at rest. Oxygen will help to improve hypoxemia. Patient is mobile within the home. DuoNeb therapy has been tried and is
ineffective in treating hypoxemia related symptoms. Oxygen is needed to improve symptoms.
Anticipated Discharge: Within 24 hours
Subjective/Interval History
-
Date of Service: May 03, 2023
Objective Data
-
Vital Signs:
Vital Signs
Temp Pulse Resp BP Pulse Ox
98.4 F 87 16 104/71 93
05/03/23 08:40 05/03/23 08:40 05/03/23 08:40 05/03/23 08:40 05/03/23 08:41
I&O
05/02/23 05/03/23 05/04/23
06:59 06:59 06:59
Intake Total 5180 / 5180 2300 / 2300
Output Total 605 / 605 960 / 960
Balance 4575 / 4575 1340 / 1340
[2023-05-03] MEDS: MAGNESIUM SULFATE 102 GRAMS IV (12:15)
[2023-05-03 12:46] LABS: Glucose - Point of Care 174 mg/dl (70-99)
--- NOTE | 2023-05-03 12:51 | W.PN.PUL3 ---
Addendum entered and electronically signed by Marcial Arcos MD 05/03/23 15:10:
Correction to physical exam:
He has +2 lower extremity pitting edema bilaterally
Original Note:
Today's Communication / Plan
-
O2 - per walk test, he needs 2L/min ATC
IS
ABx per ID
BiPAP with sleep; NIV upon discharge
He has very severe COPD per spirometry --> restart home meds (budesonide + duonebs BID)
Psych following
Assessment
-
Assessment:
Patient is a 62-year-old male with CRF secondary to OHS. Patient presented to the ED with complaints of SOB and respiratory failure. Upon admission (04/24/2023), patient initially required nasal cannula as he was found to have a RLL pneumonia. On
04/26/2023 patient became less responsive and was placed on BiPAP st/avaps due to hypercapnia with CO2=93. On 04/26/2023 later in the evening, and ABG was drawn again with cO2 of 77. Due to patient's condition he is at risk of worsening of chronic
respiratory failure. BiPAP ST/AVAPS has been tried and failed however patient will require volume ventilation to promote gas exchange via NIV therapy. Patient also requires mouthpiece ventilation for daytime as the pCO2 elevates during the day.
Due to the severity of the patient and the need for daytime mouthpiece ventilation, backup battery, alarms and portability and NIV is required which is not supported by the BiPAP/RAD/BiPAP VAPS device.
Impression:
R basilar pneumonia with acute COPD exacerbation
Acute on chronic respiratory failure with hypercapnea due to TME in setting of OHS an compounded by use of psychiatric meds and acute illness
Acute respiratory failure with hypoxemia on supplemental oxygen
Chronic elevation of total serum CO2 since at least 2018
COVID/flu negative
AFib c RVR - rate controlled now
Left facial weakness seen by neurology - suspect TME
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
COVID pneumonia, adm DH July 2019, required brief intubation
Developmental delay
Schizophrenia
Very severe COPD (FEV1/FVC 55 with FEV1: 1L (32% predicted) via PFT from 09/2021
GERD
Hypothyroidism
HTN
DM
KATTY
BPH
Obesity
Former smoker
Plan:
Continue BiPAP 20/7 at night with backup rate 12 and bled with 6L/min, humidifier setting 2 --> he has been refusing the BiPAP, and he tells me it is because he feels there is 'not enough air.'
Nasal cannula during day --> walking pulse oximetry today shows that he needs 2 L/min nasal cannula with rest and activity
Maintain SpO2 >88%
Checked UDS: negative
No meningeal signs to suspect meningitis
Noted Neurology consultation, negative spot EEG, loaded with valproate as he did not receive his outpatient dosing
R basilar pneumonia
Continue empiric atbs: zosyn and vancomycin which started on adm --> ID changed to Augmentin + Doxy starting on 05/01
MRSA screening positive
Defer duration of antibiotics to ID - he will finish 5 days of augmentin + doxy and then stop
Checked UAgs for strep and legionella: negative
Follow blood cxs (remain negative), ordered sputum cx now that mentation has improved - still not obtained
Acapella
Regarding his obesity hypoventilation syndrome:
Patient placed on bilevel AVAPS. ABG on 04/26/2023 after using AVAPS resulted in continued hypercapnia with CO2 at 93. Bilevel AVAPS failed, patient requires EO466 NIV with battery backup in the event of a power outage and alarms to advise of a
disconnect or low respiratory rate not supported by the Bilevel Vaps device.
Patient requires noninvasive volume ventilation with a target tidal volume to promote gas exchange due to CRF and COPD. RAD/BiPAP has been tried and failed as evidenced by ABG with continued hypercapnia on multiple settings. Due to the severity of
the patient and the need for daytime mouthpiece ventilation, backup battery, alarms and portability, an NIV as required which is not supported by the RAD/BiPAP (BiPAP ST, ASV or BiPAP AVAPS).
Reportedly wheezing upon adm
Continue systemic CS for suspected AECOPD: changed prednisone to MP 40 mg IV q12 on 04-26, weaned to 20mg IV q12hr on 04/29 --> continue OCS with prednisone 40mg and reduce by 10mg every 3rd day until off
Continue xopenex prn
He is Rx budesonide and DuoNebs BID at home --> used to be on Trelegy but this was stopped due to patient using inhaler incorrectly and not deriving benefit
(*)New onset AFib c RVR 04-27, paroxysmal
Started on IV diltiazem gtt, now on PO cardizem
Not good candidate for OAC at the moment
Will benefit from psychiatry consultation - psych is following- Continue Zyprexa HS
DVT proph, enoxaparin
Pulmonary to continue to follow.
Diagnostic tests:
CXR 04-30-2023:
Persistent, though improving right lower lobe pneumonia.
Small mild left lower lobe atelectasis, pneumonia, and/or trace pleural effusion appearing to have developed since prior examination.
Persistent, though improving right lower lobe pneumonia.
Small mild left lower lobe atelectasis, pneumonia, and/or trace pleural effusion appearing to have developed since prior examination.
CXR 04-26-23 c/w and Nov 2020: Baseline film mildly rotated with no infiltrates. Current films with progressive R basilar infiltrate
Brain CT and MRI 04-25 and respectively. Mild increase in chronic distension of ventricular system (suspected colpocephaly vs normal pressure hydrocephalus). No acute findings
Subjective Data
-
Date of Service:
Date of Service: May 03, 2023
Chief Complaint: Pulmonary Follow Up
Subjective:
Patient seen and evaluated today. He is sitting in chair on room air saying that he feels lightheaded and dizzy. He denies shortness of breath or chest pain. He again refused BiPAP overnight despite being offered 2 different types of masks. He
slept with nasal cannula on. Today he underwent O2 walking assessment for LTOT, and his resting O2 saturation was 86% on room air, he was placed onto 2 L/min cannula and was able to walk 130 feet with O2 saturations remaining 90%.
Review of Systems
General: Other (Negative unless mentioned above)
Objective Data
Data Reviewed
Vital Signs / I&O / Oxygen:
Vital Signs
Temp Pulse Resp BP Pulse Ox
96.8 F L 84 16 117/67 94
05/03/23 13:20 05/03/23 13:30 05/03/23 13:30 05/03/23 13:20 05/03/23 13:30
Intake and Output
05/02/23 05/03/23 05/04/23
06:59 06:59 06:59
Intake Total 5180 / 5180 2300 / 2300
Output Total 605 / 605 960 / 960
Balance 4575 / 4575 1340 / 1340
SaO2 94
Nasal Cannula flow liters per 2
minute
Physical Exam
General: Respiratory Distress (negative), Comfortable and Chills (negative)
HEENT: Normocephalic and Anicteric
Cardiovascular: S1-S2, Murmur (SHIVA), JVD (negative) and Peripheral Edema (negative)
Respiratory: Wheeze (negative), Crackles (negative), Rhonchi (neg), Accessory Resp Muscle Use (negative) and Stridor (negative)
GI: Soft, Non Distended and Normal Bowel Sounds
Neurology: Awake, Alert and No Motor Deficits
Skin: Warm and Dry
Labs/Micro/Reports
Lab Data
05/01/23 12:13
05/02/23 10:04
Microbiology
04/25/23 16:19 Blood/Venous Blood Culture - Final
No Growth - Final Report
[2023-05-03] MEDS: NOVOLOG FLEXPEN-MODERATE RESISTANCE 1 UNITS SC ×2 (12:55→17:39)
--- NOTE | 2023-05-03 14:31 | W.PN.ID1 ---
Date of Service
Date of Service: May 03, 2023
Today's Communication
Continue antibiotics
Assessment / Plan
Right-sided pneumonia
- CAP vs aspiration vs MRSA
Encephalopathy
- improved
Fever
S/P Respiratory failure
Schizophrenia
COPD
GERD
Hypothyroidism
HTN
Recommendations:
Overall appears clinically stable.
Continue Augmentin and doxycycline for an additional 3 days.
Continue aspiration precautions.
Continue with supportive measures.
Follow-up chest x-ray in 4 to 6 weeks.
����������������������������������������������������������
Chief Complaint
-: Pneumonia (Right lower lobe)
Subjective / Review of Systems
Review of Systems: No Fever, No Chills, Cough, No Sputum Production and No Abdominal Pain
Vital Signs / Physical Exam
Vital Signs
Vital Signs
Temp Pulse Resp BP Pulse Ox
96.8 F L 84 16 117/67 94
05/03/23 13:20 05/03/23 13:30 05/03/23 13:30 05/03/23 13:20 05/03/23 13:30
Physical Exam
Physical Exam:
Constitutional: No Acute Distress, Comfortable, Chronically Ill and Non-toxic
Eyes: Sclera Anicteric
Cardiovascular: S1/S2; Negative S3/S4
Pulmonary: Coarse and Non Labored
Gastrointestinal: Soft and Non Tender
Neurological: Awake and Alert
Psychological: Calm
Objective Data
Lab Data
Lab Results
05/01/23 12:13
05/02/23 10:04
ESR 43 mm/hour (0-20) H 04/26/23 05:32
Estimated Creat Clear 102 ml/min 05/02/23 10:04
Lactic Acid Cancelled 04/25/23 01:01
Total Bilirubin 0.4 mg/dl (0.2-1.3) 04/26/23 05:32
AST 23 U/L (17-59) 04/26/23 05:32
ALT 18 U/L (0-50) 04/26/23 05:32
Alkaline Phosphatase 54 U/L (38-126) 04/26/23 05:32
Most recent labs reviewed.
Micro Results:
04/25/23 16:19 Blood Culture - Final
Blood/Venous No Growth - Final Report
04/24/23 07:28 Blood Culture - Final
Blood/Venous No Growth - Final Report
04/24/23 07:15 Blood Culture - Final
Blood/Venous No Growth - Final Report
04/24/23 16:41 MRSA Screen - Final
Nose Staph aureus MRSA
04/26/23 17:57 Legionella Urinary Antigen - Final
Urine Negative for Legionella pneumophila Serogroup 1 antigen.
A negative result does not rule out the possiblity of
Legionella infection due to other serogroups or species of
Legionella. Clinical correlation is recommended.
Streptococcus pneumoniae Antigen (M - Final
Negative for Streptococcus pneumoniae antigen.
A negative result does not exclude infection with
Streptococcus pneumoniae. Clinical correlation is
recommended.
04/24/23 07:00 Influenza Types A & B (CELINA) - Final
Nasal Swab Negative for Influenza A & B, NAAT
Negative results must be combined with clinical observations
and patient history.
Nucleic Acid Amplification test (NAAT)performed on the
[employer] platform.
Imaging:
04/22/2023 CXR (portable): There is persistent right base opacity consistent with pneumonia. This is slightly worsened from a prior CXR. There is increased stranding in the right upper lung zone. Findings most consistent with right upper and right
lower lobe pneumonia. Please see full dictation for additional detail. Film personally viewed.
[2023-05-03 17:03] LABS: Glucose - Point of Care 159 mg/dl (70-99)
[2023-05-03] MEDS: ATARAX 25 MG PO (17:39)
[2023-05-03] MEDS: LOVENOX 40 MG SC (17:41)
[2023-05-03] MEDS: DUONEB 3 ML INH (19:38)
[2023-05-03] MEDS: PULMICORT 0.5 MG INH (19:38)
[2023-05-03] MEDS: MUCINEX 600 MG PO (20:14)
[2023-05-03 21:38] LABS: Glucose - Point of Care 131 mg/dl (70-99)
[2023-05-03] MEDS: LANTUS 0.179999999999999993 UNITS SC (21:44)
[2023-05-03] MEDS: ZYPREXA 20 MG PO (21:44)
[2023-05-04 03:16] VITALS: BP 134/67
[2023-05-04] MEDS: SYNTHROID 200 MCG PO (05:34)
[2023-05-04 05:40] LABS: Venous Blood Gas HCO3 42.2 mmol/L (22-27); Venous Blood Gas pH 7.37 (7.32-7.43); Venous Blood Gas pO2 127 mmHg (30-50)
[2023-05-04 05:44] LABS: Venous Blood Gas O2 Therapy 1L/min
[2023-05-04 05:47] LABS: Venous Blood Gas pCO2 73 mmHg (35-48)
--- NOTE | 2023-05-04 06:16 | PTCARENOTE ---
Patient w/ repeat VBG in AM. Critical PCO2 of 73. 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 Respiratory notified. Per respiratory, patient's VBG is compensated. No current needs. Patient refusing BiPAP overnight. Educated on importance of using BiPAP in future.
--- NOTE | 2023-05-04 07:20 | PN.DE.MGMTRT ---
Insulin Management
- -
04/27/2023 Diabetes Management Consult
Patient admitted 04/24 with increasing SOB, pneumonia. PMH includes schizophrenia, HTN, hypothyroid, COPD, GERD. Prior to admission his diabetes medication included ss NovoLog ac, Januvia 100 mg daily, metformin 500 mg BID. A1C 8.5%, cr .8, egfr
>60.
Patient is awake and alert but confused. Glucose has been > 200.
Will restart metformin 500 mg BID first dose with dinner, and Januvia 100 mg daily first dose tomorrow. Will add Lantus 10 units @ hs.
Discussed with patient Group Exercise Manager who was with patient at time of my visit.
04/28/2023: Diabetes Management F/U:
Pt is on IV steroids for COPD flare. His OP oral diabetes regimen was initiated yesterday, 1st doses this morning.
He was also started on Lantus- received 10 units @ HS, FBG 257 this AM.
Premeal glucose remains elevated 260 -276. Will increase AC NovoLog to 12 units and increase Lantus to 15 units
Will closely monitor and make necessary adjustments
05/01/2023: Diabetes Management F/U:
Pt doing well, sitting up in bed, oriented to self with limited comprehension of discussion regarding his diabetes.
He remains on IV steroids- Methylpred 20mg IV Q12 hrs for COPD flare.
Glucose remains suboptimal, FBG 194 and premeal 148 to 227
Will increase AC NovoLog to 14 units and increase Lantus to 18 units
Will closely monitor and make necessary adjustments
05/02/2023 Diabetes Management Follow up
Novolog increased yesterday to 14 units AC, continued to require corrective insulin. Will increase AC novolog to 16 units. Will make no change to HS lantus 18 units as fasting glucose not yet reported.
05/03/2023 Diabetes Management Follow up
AC novolog increased yesterday to 16 units, glucose 261 pre dinner requiring correction insulin, glucose improved, 140 @ HS. Will continue 16 units novolog AC. Received lantus 18 units @ HS, fasting glucose 136. Will make no change to lantus
dose.
05/04/2023 Diabetes Management Follow up
Glucose has been stable 131 to 174 on current regimen, metformin 1000mg BID, Januvia 100 mg daily, 16 units of novolog AC and 18 units lantus @ hs. Will make no change to regimen.
Diabetes History
- -
Type of Diabetes: 2 requiring insulin
Pre-Admission Diabetes Regimen
Lab Results
Hemoglobin A1c 8.5 % (4.0-5.6) H 04/24/23 08:58
Insulin Pump Settings
IP Diabetes Regimen
05/03/23 05/03/23 05/03/23
07:49 12:44 17:02
POC Glucose 136 H 174 H 159 H
05/03/23
21:36
POC Glucose 131 H
Meal type: Dinner
Amount consumed: 100%
Patient Education
[2023-05-04] MEDS: PULMICORT 0.5 MG INH (07:30)
[2023-05-04] MEDS: DUONEB 3 ML INH (07:30)
[2023-05-04 07:40] LABS: Glucose - Point of Care 76 mg/dl (70-99)
[2023-05-04 07:54] VITALS: BP 102/47
[2023-05-04] MEDS: NOVOLOG FLEXPEN-MODERATE RESISTANCE SC (08:21)
[2023-05-04] MEDS: NOVOLOG FLEXPEN 16 UNITS SC ×2 (08:26→11:41)
[2023-05-04] MEDS: DEPAKOTE (12 HR RELEASE) 250 MG PO (08:46)
[2023-05-04] MEDS: GLUCOPHAGE 1000 MG PO (08:47)
[2023-05-04] MEDS: FLOMAX 0.800000000000000044 MG PO (08:47)
[2023-05-04] MEDS: MUCINEX 600 MG PO (08:48)
[2023-05-04] MEDS: DEPAKOTE (12 HR RELEASE) 1000 MG PO (08:48)
[2023-05-04] MEDS: CLARITIN 10 MG PO (08:49)
[2023-05-04] MEDS: AUGMENTIN 875 MG/125 MG 1 TABLET PO (08:49)
[2023-05-04] MEDS: VIBRAMYCIN 100 MG PO (08:49)
[2023-05-04] MEDS: LIPITOR 20 MG PO (08:50)
[2023-05-04] MEDS: PROTONIX 40 MG PO (08:50)
[2023-05-04] MEDS: CARDIZEM CD 120 MG PO (08:50)
[2023-05-04] MEDS: DELTASONE 40 MG PO (08:52)
[2023-05-04] MEDS: JANUVIA 100 MG PO (08:52)
--- NOTE | 2023-05-04 09:44 | CM ---
Addendum entered by Celina Gee RN 05/04/23 11:22:
CM spoke with Ollie nurse at [facility]. Requested hard copy Rx's be faxed to:
[facility] ([phone])
[facility] ([phone])
Call report to: [phone]
Fax report to: [phone]
Facility will transport patient home.
Original Note:
Reviewed the chart notes and spoke with the patient at the bedside. IMM signed and placed on chart. The patient anticipates being discharged back to his alf today. CM continues to be available to patient/family and is monitoring medical
plan for needs at discharge.
Plan: Discharge back to alf.
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 Their contact number is on the chart #[phone]. Ask for Elizabeth Levin.
--- NOTE | 2023-05-04 10:20 | W.PN.UPDATE ---
Update Note
Progress Note Update
patient seen chart reviewed. discussed w nursing who describe patient as rather confused which is unlikely to change but overall cooperative. the patient when approached by this insurance underwriter sales was appropriately conversant. he admitted he did not feel very
well. felt weak still but his appetite was returning. he ate breakfast and staff was going to get him a snack. so far there do not seem to be issues w the dc of balwinder and i noted he appeared more alert. he acknowledged same. for now continue w
current psych meds. will follow
--- NOTE | 2023-05-04 10:51 | W.PN.HOSP.TC ---
Today's Communication/Plan
-
Discharge
Assessment / Plan
Assessment / Plan
CVS: S1-S2 normal
Chest: few rales tight base
Abdomen: Soft, NT / Bowel sounds present
Extremities: trace edema, normal pulses
Skin-small stage II pressure injury on the nose
62-year-old male from snf with shortness of breath.
Chest x-ray reviewed by me-looks better. Fluid in the right fissure, atelectasis
#Right lower lobe pneumonia
Acute hypoxic respiratory insufficiency
�Sepsis -tachycardic/febrile
-Patient presented for new onset of cough/shortness of breath.� Temperature of 102.5 F in ER.
-Chest x-ray showing right lower lobe infiltrates
-COVID/flu negative.� Blood cs neg
-Off vancomycin and Zosyn -On Doxy and Amoxicillin now.
-Legionella and strep pneumo antigen negative
-ID and Pulm
# COPD flare
-Neb therapy ordered
-On Pred
#Acute toxic metabolic encephalopathy - Improved
-Acute on chronic Hypercapnic resp failure and met alkalosis
-Patient on regimen of olanzapine 10 mg at bedtime, hydroxyzine 25 mg at bedtime, divalproex 1250 mg twice daily-now
-Decreased olanzapine/hydroxyzine for now.
-Patient required BiPAP therapy in IMU. Repeat ABG showing improvement on hypercapnia, pulmonology following
-I think he needs BiPAP for discharge considering how his ABG is
-Off and on he refuses. But agreeable
# Diabetes on metformin change to 1000 twice daily, Lantus 18 units at bedtime and NovoLog 16 AC plus sliding scale coverage
Also on Januvia as outpatient-continued
I have written a sliding scale while he is on steroid taper and then to continue 10 AC after the steroids are done.
# Left facial droop -not noted now
-CVA ruled out
-CT head w/o contrast normal
-MRI brain neg
# Stage II pressure injury on the nose from BiPAP
Wound care and special mask
#Schizophrenia
-Maintained on home medication of divalproex/Fanapt/olanzapine/ hydroxyzine at [place]
-Fanapt stopped by psyche
-Continue Depakote 1250 twice daily, olanzapine 10 mg at night and hydroxyzine 25 mg at night.
-No behavioral problems
-Psychiatry evaluation appreciated
#Hypotension
-With history of essential HTN
-Stopped atenolol
-Patient is on Cardizem, low-dose of lisinopril- Hold
# Hyperlipidemia-continue statin
# Parox Afib/RVR
-History of paroxysmal A-fib.
-Off Cardizem drip-p.o. Cardizem
-Does not seem to be on anticoagulation as outpatient
-Echo ejection fraction 70 to 75%, mild
#Acute urinary retention
-Resolved. Continue Flomax
# Anemia-normal ferritin and B12
#GERD-PPI
#MRSA
#Hypothyroidism-Synthroid 200 mcg daily
# Developmental delay
Premature baby-2lbs and 9 ounces
# Ambulatory dysfunction-PT OT
# Glaucoma
Decreased vision in the left eye
# Ex-smoker
#DVT PPX - Lovenox
#Full code
Encourage patient to use Acapella and incentive spirometry and also BiPAP
Discussed with nursing
Discussed with nurse practitioner managing diabetes
Discussed with case management
Spoke to sister and updated.
Total discharge condition time 45 minutes
Anticipated Discharge: Today
Subjective/Interval History
-
Date of Service: May 04, 2023
Objective Data
-
Vital Signs:
Vital Signs
Temp Pulse Resp BP Pulse Ox
97.6 F 91 18 102/47 91
05/04/23 07:54 05/04/23 08:50 05/04/23 07:54 05/04/23 08:50 05/04/23 07:54
I&O
05/03/23 05/04/23 05/05/23
06:59 06:59 06:59
Intake Total 2300 / 2300 1220 / 1220
Output Total 960 / 960
Balance 1340 / 1340 1220 / 1220
--- NOTE | 2023-05-04 11:03 | W.DS.TRANS ---
Addendum entered and electronically signed by Abdullahi Duran MD 05/04/23 16:27:
Dictation- [id number]
Original Note:
DC Summary - Coordinator Volunteer Services
-
Discharge Instructions:
Discharge Diagnosis/Procedures Right lower lobe pneumonia, toxic metabolic
encephalopathy, acute on chronic hypercapnic
respiratory failure, COPD exacerbation, diabetes
, pressure injury on the nose from BiPAP mask,
schizophrenia, hyperlipidemia, atrial
fibrillation, anemia, GERD, hypothyroidism,
developmental delay,
Diet Diabetic, Carb Controlled
Activity As tolerated,With assistance
Driving Restrictions No driving
Blood Work thyroid function tests 6 weeks
Others Tests Chest x-ray in 4 weeks
Other Services VN
Stop these medications: Fanapt and atenolol have been discontinued.
Instructions:
Stand-Alone Forms:
Changes to Home Medications: Yes
Discharge Medications:
DC Medications w/original date entered in [employer]
aluminum-mag hydroxide-simethicone 200 mg-200 mg-20 mg/5 mL oral susp (Mag-Al Plus) 30 ml PO DAILYPRN PRN indigestion 10/12/18
sitagliptin phosphate 100 mg tablet (Januvia) 100 mg PO DAILY Diabetes 10/12/18
cyanocobalamin (vitamin B-12) 1,000 mcg tablet 500 mcg PO DAILY Supplement 07/08/19
divalproex 250 mg tablet,delayed release 250 mg PO BID total dose 1250mg BID 07/08/19
fexofenadine 180 mg tablet 180 mg PO DAILY Allergies 07/08/19
levothyroxine 200 mcg tablet 200 mcg PO DAILY AT 0700 Thyroid 07/08/19
divalproex 500 mg tablet,delayed release 1,000 mg PO BID total 1250mg BID 11/26/20
olanzapine 10 mg tablet 20 mg PO DAILY@2000 Mental Health/Anxiety 11/26/20
acetaminophen 325 mg tablet (Tylenol) 650 mg PO Q4H PRN mild pain, fever 04/24/23
albuterol sulfate 90 mcg/actuation aerosol inhaler 2 puff inhalation Q4HPRN PRN shortness of breath 04/24/23
atorvastatin 20 mg tablet 20 mg PO DAILY High Cholesterol 04/24/23
ipratropium 0.5 mg-albuterol 3 mg (2.5 mg base)/3 mL nebulization soln 3 ml inhalation Q4H PRN SOB/ wheezing 04/24/23
omeprazole 20 mg tablet,delayed release 20 mg PO DAILY Gastrointestinal Issue 04/24/23
glucose 4 gram chewable tablet (TRUEplus Glucose) 16 g PO ONCE PRN BS<70 04/25/23
polyethylene glycol 3350 17 gram oral powder packet (Miralax) 17 g PO DAILY PRN constipation 04/25/23
amoxicillin 875 mg-potassium clavulanate 125 mg tablet 1 tab PO Q12 Infection #5 tabs 05/04/23
budesonide 0.5 mg/2 mL suspension for nebulization 0.5 mg (2 mL) inhalation R BID Lung/breathing issues #60 mL 05/04/23
diltiazem HCl 120 mg capsule,extended release 24 hr 120 mg PO DAILY Arrhythmia #60 caps 05/04/23
doxycycline hyclate 100 mg capsule 100 mg PO Q12 Infection #5 caps 05/04/23
guaifenesin 600 mg tablet, extended release 12 hr 600 mg PO Q12 Congestion #10 tabs 05/04/23
hydroxyzine HCl 25 mg tablet 25 mg PO QPM Mental Health/Anxiety #30 tabs 05/04/23
insulin aspart U-100 100 unit/mL (3 mL) subcutaneous pen (Novolog FlexPen U-100 Insulin aspart) 16 unit (0.16 mL) SC AC Diabetes #15 mL 05/04/23
insulin glargine 100 unit/mL (3 mL) subcutaneous pen (Lantus Solostar U-100 Insulin) 18 unit (0.18 mL) SC QPM Diabetes #15 mL 05/04/23
lisinopril 2.5 mg tablet 2.5 mg PO HS Blood pressure #0 tabs 05/04/23
metformin 500 mg tablet 1,000 mg PO BID@0800,1700 Diabetes #60 tabs 05/04/23
prednisone 10 mg tablet See Rx Instructions .Route .COMPLEX Lung/breathing issues #30 tabs 05/04/23
tamsulosin 0.4 mg capsule 0.8 mg PO HS Urinary issue #60 caps 05/04/23
Home Medication Changes
Fanapt stopped.
New medicines
Flomax, prednisone, Lantus insulin, doxycycline, amoxicillin, budesonide, diltiazem, doxycycline
NovoLog insulin, hydroxyzine dose change
Pending Results: No
[2023-05-04 11:17] LABS: Glucose - Point of Care 204 mg/dl (70-99)
[2023-05-04] MEDS: NOVOLOG FLEXPEN-MODERATE RESISTANCE 3 UNITS SC (11:38)
== END 2023-05-04 13:48 | disposition home or self-care (01) | DRG 871 ==
LOC: 2 NORTH 09:18
PROVIDERS: Internal Medicine Critical Care Medicine; Nurse Practitioner Family; ADMITTING PHYSICIAN Hospitalist; ATTENDING PHYSICIAN Hospitalist; CONSULT PHYSICIAN Internal Medicine Cardiovascular Disease; CONSULT PHYSICIAN Internal Medicine Pulmonary Disease; CONSULT PHYSICIAN Nurse Practitioner Acute Care; CONSULT PHYSICIAN Psychiatry & Neurology Psychiatry; EMERGENCY PHYSICIAN Emergency Medicine; OTHER PHYSICIAN Internal Medicine Infectious Disease; OTHER PHYSICIAN Psychiatry & Neurology Neurology
PROC: 5A09457 Assistance with Respiratory Ventilation, 24-96 Consecutive Hours, Continuous Positive Airway Pressure (ICD-10-PCS; 2023-04-26)
DX: A41.9 Sepsis, unspecified organism (principal); G92.8 Other toxic encephalopathy; J18.9 Pneumonia, unspecified organism; J96.22 Acute and chronic respiratory failure with hypercapnia; J44.0 Chronic obstructive pulmonary disease with (acute) lower respiratory infection; J44.1 Chronic obstructive pulmonary disease with (acute) exacerbation; N39.0 Urinary tract infection, site not specified; E87.29 Other acidosis; E66.2 Morbid (severe) obesity with alveolar hypoventilation; K21.9 Gastro-esophageal reflux disease without esophagitis; E03.9 Hypothyroidism, unspecified; I10 Essential (primary) hypertension; E11.9 Type 2 diabetes mellitus without complications; D64.9 Anemia, unspecified; R62.50 Unspecified lack of expected normal physiological development in childhood; Z11.52 Encounter for screening for COVID-19; F20.9 Schizophrenia, unspecified; N40.0 Benign prostatic hyperplasia without lower urinary tract symptoms; Z86.16 Personal history of COVID-19; Z87.891 Personal history of nicotine dependence; Z68.31 Body mass index [BMI] 31.0-31.9, adult; I95.9 Hypotension, unspecified; L89.812 Pressure ulcer of head, stage 2; E78.00 Pure hypercholesterolemia, unspecified; I48.0 Paroxysmal atrial fibrillation
CPT/HCPCS: 36600; 70450; 70551; 71045; 71046; 80048; 80053; 80164; 80202; 80306; 81003; 82607; 82728; 82746; 82805; 82947; 82962; 83036; 83605; 83735; 83880; 84439; 84443; 84484; 85025; 85027; 85652; 87040; 87070; 87147; 87449; 87502; 87811; 87899; 92610; 93005; 93306; 94640; 94660; 96361; 96374; 96375; 97116; 97162; 97167; 97530; 97535; 99285; J2358; Q9950

== ENCOUNTER → 2023-06-07 09:47 | Outpatient (REF) | payer MEDICARE, MEDICAID, SELFPAY | LOC: RAD 09:47 | PROVIDERS: ATTENDING PHYSICIAN Nurse Practitioner Adult Health; FAMILY PHYSICIAN Family Medicine | DX: R05.3 Chronic cough (principal); J69.0 Pneumonitis due to inhalation of food and vomit | CPT/HCPCS: 74230; 92611 ==

== ENCOUNTER → 2023-06-14 13:25 | Outpatient (REF) | payer MEDICARE, MEDICAID, SELFPAY | LOC: RAD 13:25 | PROVIDERS: ATTENDING PHYSICIAN Nurse Practitioner Adult Health | DX: Z87.891 Personal history of nicotine dependence (principal); R93.89 Abnormal findings on diagnostic imaging of other specified body structures; R05.3 Chronic cough; J69.0 Pneumonitis due to inhalation of food and vomit | CPT/HCPCS: 71271 ==

== ENCOUNTER 2023-06-17 00:11 | Emergency (ER) | payer MEDICARE, OTHER, SELFPAY ==
[2023-06-17 00:16] VITALS: BP 117/69
[2023-06-17 00:18] VITALS: BP 117/69
--- NOTE | 2023-06-17 00:47 | ED.GENMED ---
History of Present Illness
General
Chief Complaint: Breathing Problem
Source: patient
Exam Limitations: none
Time Seen by Provider: 06/17/23 00:30
Nursing documentation reviewed up to this point in time: agreed with
Travel History
Have you had any contact with someone who has COVID-19?: No
Do you have any symptoms of coronavirus? Fever > 100 degrees, chills, cough, shortness of breath, sore throat, loss of taste or smell, muscle aches, or headache?: No
History of Present Illness
History of Present Illness:
Patient with history of mild retardation and COPD, presents to ED from [facility] secondary to increasing cough along with respiratory distress and mental status change noted by staff starting this afternoon. Secondary to cough and increased
oxygen requirement, outpatient CT was ordered which revealed left lower lobe pneumonia today. Antibiotics has not been started yet. Upon arrival, patient found to be hypoxic with initial pulse ox 85% on room air. Patient however, does not have
any complaints. Denies headache. Denies fever. Denies chest pain. Denies shortness of breath. Denies nausea, vomiting, or diarrhea.
Past History
Past History
ED Past Medical History: COPD, GERD, HTN, NIDDM, Hypothyroidism, Psychiatric (Schizophrenia) and Other (COVID-21 July 2019, BPH, glaucoma)
ED Past Surgical History: None
Social History
Tobacco: Non-smoker
Alcohol: None
Drug: None
Personal: Single
Living: group home
Employment: Disabled
Family History
Family History: Other (Reviewed and noncontributory)
Review of Systems
Review of Systems
Allergies reviewed?: Yes
Other source history: group home and ambulance crew
All Other Systems: ROS reviewed and negative except as documented in HPI and ROS
Constitutional: Reports no symptoms; Denies fever or chills
EENT: Reports no symptoms
Respiratory: Reports cough and trouble breathing
Cardiac: Reports no symptoms
ABD/GI: Reports no symptoms
Musculoskeletal: Reports no symptoms
Skin: Reports no symptoms
Neurological: Reports other (Mental status change)
Phy Exam
Physical Exam
Physical Exam:
Physical Exam
General: no apparent distress, not acutely ill. afebrile
Head: nc/at. eomi
Neck: supple. no meningeal signs.
Heart: s1/s2 regular rate and rhythm, no murmur. equal radial pulses.
Lungs: no acute respiratory distress. diminished breath sounds bilaterally
Abdomen: normal bowel sounds. not tender.
Neuro: alert and oriented. no focal neurological deficits
Skin: no rash
Psychiatric: well kept. interactive and cooperative
Extremities: no edema. no calf tenderness.
Scores
Heart Failure Risk
Heart Failure Risk Score: Not Applicable
Course
Orders/Labs/Results
Orders:
Orders
06/17/23 00:38
COVID-19 Antigen Urgent
Source: Nasal Swab
Complete Blood Count/With Diff Urgent
Comprehensive Metabolic Panel Urgent
Manual Differential Urgent
Influenza A+B Rapid Molecular Urgent
TUSHAR Source: Nasal Swab
Specimen Description:
06/17/23 01:30
Amoxicillin 875 mg/Clav 125 mg [Augmentin 875 mg/125 mg] 1 tablet PO NOW STA
06/17/23 01:31
0.9% Sodium Chloride 500 ml [Nss] 500 ml IV BOLUS
Abnormal Lab Results
06/17/23
00:38
RBC 3.13 L 10^6/uL
(4.70-6.10)
Hgb 10.1 L g/dL
(13.0-18.0)
Hct 31.4 L %
(39.0-52.0)
MCV 100.3 H fL
(80.0-94.0)
MCH 32.3 H pg
(27.0-31.0)
MCHC 32.2 L g/dL
(33.0-37.0)
MPV 11.2 H fL
(7.4-10.4)
Segmented Neutrophils 41 L %
(42-75)
Band Neutrophils 14 H %
(0-3)
Chloride 94 L mmol/L
(98-107)
Carbon Dioxide 37 H mmol/L
(22-30)
BUN 30 H mg/dl
(9-20)
Total Protein 5.9 L g/dl
(6.3-8.2)
Albumin 3.2 L g/dl
(3.5-5.0)
06/17/23 00:38
06/17/23 00:38
Vital Signs
Initial and Last Documented VS:
Initial Vital Signs
Temp Pulse Resp BP Pulse Ox
98.6 F 80 17 117/69 85
06/17/23 00:16 06/17/23 00:16 06/17/23 00:16 06/17/23 00:16 06/17/23 00:16
Last Documented Vital Signs
Temp Pulse Resp BP Pulse Ox
98.6 F 88 20 117/69 94
06/17/23 00:16 06/17/23 03:15 06/17/23 03:45 06/17/23 00:18 06/17/23 03:45
MDM/Problems Addressed
MDM/Problems Addressed:
CT report from June 13 noted, significant for left lower lobe pneumonia. Patient otherwise remains afebrile, hemodynamically stable, and pulse ox 94 to 95% on 2 L of oxygen. As such, patient will be discharged back to assisted living location,
with recommendation to continue already prescribed Augmentin.
*Critical Care Note
Total Time (30-74mins, 75-104mins- exclusive of procedures): Not Applicable
ED Attending Note
-
Portions of this chart may have been created with voice recognition software.� Occasional wrong word or��sound alike� substitutions may have occurred due to the inherent limitations of voice recognition software.
Discharge Plan
Departure
Patient Disposition: Home (Routine Discharge)
Date of Disposition: 06/17/23
Time of Disposition: 01:32
Patient with high blood pressure during this ER visit?: No
Discharge Problem:
Pneumonia
Instructions: Pneumonia in adults
Prescriptions:
No Action
Januvia 100 MG tablet
100 mg PO DAILY
fexofenadine 180 MG tablet
180 mg PO DAILY
levothyroxine 200 MCG tablet
200 mcg PO DAILY
acetaminophen [Tylenol] 325 mg Tablet
650 mg PO Q4HPRN PRN (Reason: mild pain)
atorvastatin 20 mg tablet
20 mg PO DAILY
ipratropium-albuterol 0.5 mg-3 mg(2.5 mg base)/3 mL Solution For Nebulization
3 ml INHALATION R Q4HPRN PRN (Reason: SOB/ wheezing)
polyethylene glycol 3350 [Miralax] 17 gram Powder In Packet
17 g PO DAILY PRN (Reason: constipation)
atenolol 25 mg Tablet
25 mg PO DAILY
dorzolamide-timolol 22.3-6.8 mg/mL Drops
1 drp BOTH EYES BID@
albuterol sulfate [Ventolin HFA] 90 mcg/actuation Hfa Aerosol Inhaler
1 - 2 puff INHALATION R Q4HPRN PRN (Reason: shortness of breath/wheezing)
Fanapt 12 mg Tablet
12 mg PO DAILY@1999
Trelegy Ellipta 100-62.5-25 mcg Blister With Device
1 inh INHALATION R DAILY
metformin 500 mg tablet
500 mg PO BID@799,1999
Acid Gone Antacid 95-358 mg/15 mL Suspension
15 ml PO DAILYPRN PRN (Reason: acid)
divalproex 250 mg Tablet,Delayed Release (Dr/Ec)
250 mg PO BID@08,1999
Rx Instructions:
06/17/2023, take with 1,000 mg for a total of 1,250 mg.
hydroxyzine pamoate 50 mg Capsule
50 mg PO DAILY@1999
divalproex 500 mg Tablet,Delayed Release (Dr/Ec)
1,000 mg PO BID@799,1999
Rx Instructions:
06/17/2023, take with 250 mg for a total of 1,250 mg.
cyanocobalamin (vitamin B-12) 500 mcg Tablet
500 mcg PO DAILY
olanzapine 20 mg Tablet
20 mg PO DAILY@1999
Apidra SoloStar U-100 Insulin 100 unit/mL Insulin Pen
0 sliding scale dose SC DIRECTED
Rx Instructions:
06/17/2023, if BS 100-150 = 3 units; 151-200 = 6 units; 201-250 = 9 units; 251-300 = 12 units; 301-350 = 14 units; greater than 351 call office.
lisinopril 2.5 MG tablet
2.5 mg PO DAILY
Referrals:
Rubio Edwards DO [Family Provider] -
Activity Restrictions/Additional Instructions:
As discussed, please follow-up with your primary care physician for reevaluation. Please continue to take already prescribed Augmentin, as recent CT scan revealed left lower lobe pneumonia.
Interventions
Interventions:
*Risk Screen - Suicide Last Done: 06/17/23 00:16
*General Assessment Last Done: 06/17/23 00:16
*Neglect/Abuse Screening Last Done: 06/17/23 00:16
ED- Fall Risk Assessment Last Done: 06/17/23 00:21
*ED COVID-19 Vaccine History Last Done: 06/17/23 00:16
*Nursing Disposition Last Done: 06/17/23 03:45
ED- Cardiac Assessment Last Done: 06/17/23 00:21
ED- Pulmonary Assessment Last Done: 06/17/23 00:21
Discharge Date and Time
Discharge Date/Time: 06/17/23 03:40
[2023-06-17 01:03] LABS: ALT (SGPT) 16 U/L (0-50); AST (SGOT) 18 U/L (17-59); Albumin 3.2 g/dl (3.5-5.0); Alkaline Phosphatase 62 U/L (38-126); Blood Urea Nitrogen 30 mg/dl (9-20); Calcium 9.1 mg/dl (8.4-10.2); Carbon Dioxide 37 mmol/L (22-30); Chloride 94 mmol/L (98-107); Estimated Creatinine Clearance 104 ml/min; Glucose 83 mg/dl (70-99); Potassium 4.1 mmol/L (3.5-5.1); Sodium 139 mmol/L (135-145); Total Bilirubin 0.3 mg/dl (0.2-1.3); Total Protein 5.9 g/dl (6.3-8.2); eGFR > 60.00
[2023-06-17 01:05] LABS: COVID-19 Antigen Negative (Negative)
[2023-06-17 01:26] LABS: Hematocrit 31.4 % (39.0-52.0); Hemoglobin 10.1 g/dL (13.0-18.0); Mean Corp Hgb Conc. 32.2 g/dL (33.0-37.0); Mean Corpuscular Hgb 32.3 pg (27.0-31.0); Mean Corpuscular Volume 100.3 fL (80.0-94.0); Mean Platelet Volume 11.2 fL (7.4-10.4); Nucleated Red Blood Cells % 0 % (-); Platelet Count 170 10^3/uL (130-400); Red Blood Cell Count 3.13 10^6/uL (4.70-6.10); Red Cell Dist. Width 14.2 % (11.5-14.5); White Blood Cell Count 5.5 10^3/uL (4.8-10.8)
[2023-06-17] MEDS: AUGMENTIN 875 MG/125 MG 1 TABLET PO (01:43)
[2023-06-17] MEDS: NSS 500 IV (01:43)
[2023-06-17 03:28] LABS: Atypical Lymphocytes 1 %; Band Neutrophils 14 % (0-3); Eosinophils 1 % (0-6); Lymphocytes 27 % (20-51); Metamyelocytes 2 % (-); Monocytes 8 % (2-9); Myelocytes 6 % (-); Segmented Neutrophils 41 % (42-75)
[2023-06-17 03:43] LABS: Platelets Checked Yes
[2023-06-17 03:44] LABS: Anisocytosis 1+; Macrocytosis 1+; Normal RBC Morphology No; Total Cells Counted 100
== END 2023-06-17 03:40 | disposition home or self-care (01) ==
LOC: EMR 00:11
PROVIDERS: EMERGENCY PHYSICIAN Emergency Medicine; FAMILY PHYSICIAN Family Medicine
DX: J18.9 Pneumonia, unspecified organism (principal); J44.9 Chronic obstructive pulmonary disease, unspecified; F70 Mild intellectual disabilities
CPT/HCPCS: 99284; 96360; 80053; 85025; 87502; 87811

== ENCOUNTER 2023-06-17 17:38 | Inpatient (IN) | payer MEDICARE, MEDICAID, SELFPAY ==
[2023-06-17] VITALS (22 sets, daily range): BP systolic 77–140; BP diastolic 34–87; PULSE 2–92; BMI 30.7; BMI 28.6
[2023-06-17 14:01] LABS: % Basophils 1.6 % (0-2); % Eosinophils 0.6 % (0-6); % Immature Granulocytes 9.6 % (0-0.5); % Lymphocytes 19.9 % (20.5-51.1); % Monocytes 18.4 % (1.7-9.3); % Neutrophils 49.9 % (42.2-75.2); Absolute Basophils 0.1 10^3/uL (0-0.2); Absolute Immature Granulocytes 0.5 10^3/uL (0-0.05); Absolute Monocytes 0.9 10^3/uL (0.1-0.6); Absolute Neutrophils 2.4 10^3/uL (1.4-6.5); Hematocrit 34.6 % (39.0-52.0); Hemoglobin 11.3 g/dL (13.0-18.0); Mean Corp Hgb Conc. 32.7 g/dL (33.0-37.0); Mean Corpuscular Hgb 31.8 pg (27.0-31.0); Mean Corpuscular Volume 97.5 fL (80.0-94.0); Mean Platelet Volume 10.6 fL (7.4-10.4); Nucleated Red Blood Cells % 0 % (-); Platelet Count 181 10^3/uL (130-400); Red Blood Cell Count 3.55 10^6/uL (4.70-6.10); Red Cell Dist. Width 13.9 % (11.5-14.5); White Blood Cell Count 4.9 10^3/uL (4.8-10.8)
--- NOTE | 2023-06-17 14:10 | EDRN ---
this RN is currently at the pts bedside and the pt continues to try to get out of the stretcher over the side rails, when this RN asked the pt what he is doing and why he is trying to get out of bed the pt relies, 'I don't know i'm not sure', the pt
is AAO and answers questions appropriately, this RN reoriented the pt to pressing the call mullins if he needs to get up out of stretcher or use the bathroom due to the patient being on 2L NC that is hooked to the wall, the pt understands this and is
agreeable to pressing the call mullins to get up out of the stretcher, the pt is resting in stretcher in the lowest position, side rails up x2, call mullins within reach, HOB elevated, VS WNL, awaiting for provider to see the pt, will continue to monitor
the pt closely
[2023-06-17 14:15] LABS: ALT (SGPT) 17 U/L (0-50); AST (SGOT) 24 U/L (17-59); Albumin 3.5 g/dl (3.5-5.0); Alkaline Phosphatase 58 U/L (38-126); Blood Urea Nitrogen 21 mg/dl (9-20); Calcium 9.3 mg/dl (8.4-10.2); Carbon Dioxide 37 mmol/L (22-30); Chloride 96 mmol/L (98-107); Estimated Creatinine Clearance > 125 ml/min; Glucose 138 mg/dl (70-99); Potassium 4.7 mmol/L (3.5-5.1); Sodium 138 mmol/L (135-145); Total Bilirubin 0.6 mg/dl (0.2-1.3); Total Protein 6.4 g/dl (6.3-8.2); eGFR > 60.00
[2023-06-17 14:45] LABS: Lactic Acid 1.3 mmol/L (0.7-2.0)
--- NOTE | 2023-06-17 15:33 | ED.GENMED ---
History of Present Illness
General
Chief Complaint: Breathing Problem
Source: ambulance crew and care home records
Exam Limitations: clinical condition and developmental stage
Time Seen by Provider: 06/17/23 14:35
Travel History
Have you had any contact with someone who has COVID-19?: No
Do you have any symptoms of coronavirus? Fever > 100 degrees, chills, cough, shortness of breath, sore throat, loss of taste or smell, muscle aches, or headache?: No
History of Present Illness
History of Present Illness:
germain is a 63 y/o M with h/o COPD/asthma, resp failure in the past on 2L chronically, developmental delay from residential for MRI Interventions work of breathing
pt apparently had outpatient chest CT showing LLL pneumonia, it sounds as if it was a screening exam
he then yesterday was hypoxic and requiring more o2 and confused and was sent here for evaluation
the physician reviewed the CT report showing pna and started pt on augmentin
pt went back to his facility on his 2L as usual
he was sent here because he looked more sob
pt has not had any fever
he is not able to offer complaints
Past History
Past History
ED Past Medical History: COPD, GERD, HTN, NIDDM, Hypothyroidism, Psychiatric (Schizophrenia) and Other (COVID-21 July 2019, BPH, glaucoma)
ED Past Surgical History: None
Social History
Tobacco: Non-smoker
Alcohol: None
Drug: None
Personal: Single
Living: care home
Employment: Disabled
Family History
Family History: Other (Reviewed and noncontributory)
Review of Systems
Review of Systems
Allergies reviewed?: Yes
All Other Systems: Not applicable
Phy Exam
Physical Exam
Physical Exam:
GENERAL: Alert ,mild tachypnea; somnolence; arouses to questions but doesn't answer them well
EYE: pupils equal and reactive
NECK: Supple
ENT: o/p clr, mmm.
CARDIAC: Regular rate and rhythm .
ressp: very diminished, occ cough, tachypneic, 95% on 2L
ABDOMEN: Soft, without focal tenderness, no r/g, no cvat, normal bowel sounds
NEUROLOGICAL: Alert and oriented, no focal neuro deficits
SKIN: Warm and dry, skin intact.
MUSCULOSKELETAL: No edema, well perfused. neg cristopher's sign
PSYCH: Normal and appropriate interaction.
Scores
Heart Failure Risk
Heart Failure Risk Score: Not Applicable
Course
Orders/Labs/Results
Orders:
Orders
06/17/23 13:44
Electrocardiogram (*1) Urgent
Reason for Study: Shortness of Breath
06/17/23 13:45
EKG- Treatment ONCE
06/17/23 13:52
Complete Blood Count/With Diff Urgent
Comprehensive Metabolic Panel Urgent
Lactic Acid Urgent
Blood Culture Urgent
TUSHAR Source: Blood/Venous
Specimen Description:
06/17/23 15:29
Azithromycin 500 mg/250 ml [Zithromax Infusion] 500 mg in 250 ml IV NOW
CefTRIAXone [Rocephin] 1,000 mg IV NOW STA
Ipratropium/Albuterol Sulfate [Duoneb] 3 ml INH R NOW STA
06/17/23 15:37
CR Chest - 2 Views Urgent
Comment:
Reason For Exam: pna on ct 3 days ago, more sob
06/17/23 17:13
Admit/Transfer Patient As Directed
Co-Sign Provider:
Level of Care: Inpatient admission
Assign to:: IMU- Intermediate Care
Physician / Group: chandler ravi
Diagnosis: acute on chronic respiratory failure
Reason for Hospitalization: acute on chronic respiratory failure
Expected length of stay greater than two midnights?: Yes
ELOS- Estimated Length of Stay in days: 3
I certify the patient meets the requirements for IP care: Yes
06/17/23 17:19
Code Status As Directed
Resuscitation Status: Full Code
06/17/23 17:26
Dexamethasone Sod Phosphate [Decadron] 6 mg IV NOW STA
06/17/23 17:42
ABG [Arterial Blood Gas] Stat
%Oxygen/Room Air: 4l
Abnormal Lab Results
06/17/23
13:52
RBC 3.55 L 10^6/uL
(4.70-6.10)
Hgb 11.3 L g/dL
(13.0-18.0)
Hct 34.6 L %
(39.0-52.0)
MCV 97.5 H fL
(80.0-94.0)
MCH 31.8 H pg
(27.0-31.0)
MCHC 32.7 L g/dL
(33.0-37.0)
MPV 10.6 H fL
(7.4-10.4)
Abs Immat Gran (auto) 0.5 H 10^3/uL
(0-0.05)
Absolute Lymphs (auto) 1.0 L 10^3/uL
(1.2-3.4)
Absolute Monos (auto) 0.9 H 10^3/uL
(0.1-0.6)
Immature Gran % 9.6 H %
(0-0.5)
Lymphocytes % 19.9 L %
(20.5-51.1)
Monocytes % 18.4 H %
(1.7-9.3)
Chloride 96 L mmol/L
(98-107)
Carbon Dioxide 37 H mmol/L
(22-30)
BUN 21 H mg/dl
(9-20)
Creatinine 0.6 L mg/dL
(0.7-1.3)
Glucose 138 H mg/dl
(70-99)
06/17/23 13:52
06/17/23 13:52
Vital Signs
Initial and Last Documented VS:
Initial Vital Signs
Temp Pulse Resp BP Pulse Ox
99.1 F 92 26 140/74 98
06/17/23 13:45 06/17/23 13:45 06/17/23 13:45 06/17/23 13:45 06/17/23 13:45
Last Documented Vital Signs
Temp Pulse Resp BP Pulse Ox
99.1 F 92 26 140/74 98
06/17/23 13:45 06/17/23 13:45 06/17/23 13:45 06/17/23 13:45 06/17/23 13:45
MDM/Problems Addressed
Differential Diagnosis Includes:
pneumonia, copd,
MDM/Problems Addressed:
63 y/o M with h o copd, asthma, pneumaonia on 2L
here from residential with inc work of breathing and known pna recently diagnosed
he has no fever, was normotensive, somnolent but arousable
c/o feeling ill
pulse ox 95% on 2L
lightly tachypneic
cxr shows severe L pna
wbc normal
admit for iv abx
06/17/2023 1823 PM
pt became slighty hypotensive, more somnolent
hospitalist ordered abg and then Bipap
he chronically retains co2
RN had turned his o2 to 4L earlier
now on bipap
bp 90/50
getting fluids and abx.
*Critical Care Note
Total Time (30-74mins, 75-104mins- exclusive of procedures): Not Applicable
ED Attending Note
-
Portions of this chart may have been created with voice recognition software.� Occasional wrong word or��sound alike� substitutions may have occurred due to the inherent limitations of voice recognition software.
Discharge Plan
Departure
Patient Disposition: Admit
Date of Disposition: 06/17/23
Time of Disposition: 15:37
Admit to: Med/Surg
Presentation/result/management discussed w/ accepting MD/DO: Hospitalist
Condition: Fair
Covid-19: Negative COVID-19
Discharge Problem:
Pneumonia
Interventions
Interventions:
*Risk Screen - Suicide Last Done: 06/17/23 13:45
*General Assessment Last Done: 06/17/23 13:45
*Neglect/Abuse Screening Last Done: 06/17/23 13:45
ED- Fall Risk Assessment Last Done: 06/17/23 13:45
*ED COVID-19 Vaccine History Last Done: 06/17/23 13:45
ED- Cardiac Assessment Last Done: 06/17/23 13:45
ED- Pulmonary Assessment Last Done: 06/17/23 13:45
--- NOTE | 2023-06-17 15:38 | EDRN ---
this RN noticed that the pt had gotten out of bed and took his gown off and was trying to use the urinal, this RN reminded the pt to press the call mullins when he feels like he needs to get out of bed, the pt is agreeable to this, the pt was assisted
back into the stretcher, no s/s of distress, no c/o chest pain, no s/o SOB, will continue to monitor the pt closely
[2023-06-17] MEDS: ZITHROMAX INFUSION 250 IV (16:25)
[2023-06-17] MEDS: ROCEPHIN 1000 MG IV (16:25)
[2023-06-17] MEDS: DUONEB 3 ML INH ×2 (16:25→21:24)
--- NOTE | 2023-06-17 16:41 | HPS.HSE ---
Addendum entered and electronically signed by Gabriel Beltran MD 06/17/23 17:57:
I saw and examined the patient.
The SOFTWARE PACKAGER or PA's note was reviewed and I agree with the note.
Comment: 63-year-old male with past medical history of COPD, Diabetes mellitus, schizophrenia, hypotension, paroxysmal A-fib not on anticoagulation came to the hospital with worsening shortness of breath. Concern for pneumonia. Patient was here
last month with similar complaints and per discharge summary was sent on BiPAP. Check ABG now, does appear to have chronic CO2 retention however if high then will start BiPAP. Start Decadron. DuoNebs standing and as needed. Start Pulmicort.
Consult pulm. Start vancomycin and Zosyn.admit to IMU. BP borderline now; start IVF. hold BP meds. NPO. speech
General:�Well Developed, Well Nourished and No Apparent Distress
HEENT:�NormoCephalic, Moist mucous membranes and Atraumatic
Respiratory:�Decreased Breath Sounds
Cardiac:�S1/S2 and Regular Rhythm; No Murmur or Rub
GI:�Soft, Non Tender, Non Distended and Normal Bowel Sounds; No Organomegaly
Rectal:�Deferred by Provider
Musculoskeletal:�No Clubbing, No Cyanosis and No Edema
Skin:�No Rash
Neuro:�Nonfocal/grossly intact
Psych:�Calm
I spent a total of 78 minutes with the patient or on the floor. More than 50% of this time involved counseling and coordination of care.
Original Note:
Family Physician
-
Family Physician: NOT KNOW UNKNOWN - PT DOES
Chief Complaint
-
lethargic
History of Present Illness
63 year old with PMH for COPD, chronic respiratory failure, developmental delay, HTN, NIDDM, hypothyroidism, schizophrenia, BPH, Glaucoma presented to us with lethargic. patient is poor historian. upon my assessment, patient is lethargic, easily
arousable. responded saying, 'I feel terrible'. stated pain in the left lower chest. stated he was coughing. patient falling sleep when interviewing. as per ER chart, patient is from senior care. had outpatient chest CT showing LLL pneumonia, started
on Augmentin. today patient is more lethargic, confused requiring more oxygen which prompted them to bring to ER. ROS is limited
chest CT with Severe left basilar pneumonia. started on ceftriaxone and zithro. received nebs. patient oxygenating 92 on 4l. admitting fo further management.
Medical History
Past Medical History
Past Medical History: Reports Other
Additional Past Medical History:
COPD
GERD
Hypothyroidism
HTN
schizophrenic
anemia
renal calculi
BPH
polydipsia
epilepsy
DM
legally blind
Glaucoma
COVID
Past Surgical History: Reports Other
Additional Past Surgical History:
cholecystectomy
Social History
Unable to obtain full social history at this time due to: Acuity
Family History
Family History: Not pertinent
Allergies / Home Medications
Allergies reflects when Allergies were last updated in [employer].
Home Medications with original date entered in [employer]
Allergy/Medication List:
Allergies
Allergy/AdvReac Type Severity Reaction Status Date / Time
No Known Allergies Allergy Verified 06/17/23 01:54
Home Medications
sitagliptin phosphate 100 mg tablet (Januvia) 100 mg PO DAILY Diabetes 10/12/18
fexofenadine 180 mg tablet 180 mg PO DAILY Allergies 07/08/19
levothyroxine 200 mcg tablet 200 mcg PO DAILY Thyroid 07/08/19
acetaminophen 325 mg tablet (Tylenol) 650 mg PO Q4HPRN PRN mild pain 04/24/23
atorvastatin 20 mg tablet 20 mg PO DAILY High Cholesterol 04/24/23
ipratropium 0.5 mg-albuterol 3 mg (2.5 mg base)/3 mL nebulization soln 3 ml inhalation R Q4HPRN PRN SOB/ wheezing 04/24/23
polyethylene glycol 3350 17 gram oral powder packet (Miralax) 17 g PO DAILY PRN constipation 04/25/23
albuterol sulfate 90 mcg/actuation aerosol inhaler (Ventolin HFA) 1 - 2 puff inhalation R Q4HPRN PRN shortness of breath/wheezing 06/17/23
aluminum hydrox-magnesium carb 95 mg-358 mg/15 mL oral suspension (Acid Gone Antacid) 15 ml PO DAILYPRN PRN acid 06/17/23
atenolol 25 mg tablet 25 mg PO DAILY 06/17/23
cyanocobalamin (vitamin B-12) 500 mcg tablet 500 mcg PO DAILY 06/17/23
divalproex 250 mg tablet,delayed release 250 mg PO BID@08,199906/17/23
divalproex 500 mg tablet,delayed release 1,000 mg PO BID@08,199906/17/23
dorzolamide 22.3 mg-timolol 6.8 mg/mL eye drops 1 drp BOTH EYES BID@799,199906/17/23
fluticasone fur. 100 mcg-umeclid 62.5 mcg-vilant 25 mcg inhalat.powder (Trelegy Ellipta) 1 inh inhalation R DAILY 06/17/23
hydroxyzine pamoate 50 mg capsule 50 mg PO DAILY@199906/17/23
iloperidone 12 mg tablet (Fanapt) 12 mg PO DAILY@199906/17/23
insulin glulisine U-100 100 unit/mL subcutaneous pen (Apidra SoloStar U-100 Insulin) 0 sliding scale dose SC DIRECTED 06/17/23
lisinopril 2.5 mg tablet 2.5 mg PO DAILY Blood pressure 06/17/23
metformin 500 mg tablet 500 mg PO BID@08,1999 Diabetes 06/17/23
olanzapine 20 mg tablet 20 mg PO DAILY@199906/17/23
Review of Systems
-
Unable to obtain full review of systems at this time due to: Acuity
Respiratory: Reports No Symptoms, Cough and Trouble Breathing
Cardiac: Reports No Symptoms and Chest Pain
Physical Exam
Vital Signs
Vital Signs
Temp Pulse Resp BP Pulse Ox
99.1 F 92 26 140/74 98
06/17/23 13:45 06/17/23 13:45 06/17/23 13:45 06/17/23 13:45 06/17/23 13:45
Physical Exam
General: Well Developed, Well Nourished and No Apparent Distress
HEENT: NormoCephalic, Moist mucous membranes and Atraumatic
Respiratory: Decreased Breath Sounds
Cardiac: S1/S2 and Regular Rhythm; No Murmur or Rub
GI: Soft, Non Tender, Non Distended and Normal Bowel Sounds; No Organomegaly
Rectal: Deferred by Provider
Musculoskeletal: No Clubbing, No Cyanosis and No Edema
Skin: No Rash
Neuro: Nonfocal/grossly intact
Psych: Calm
Laboratory Results
-
06/17/23 13:52
06/17/23 13:52
Laboratory Results
Lactic Acid 1.3 mmol/L (0.7-2.0) 06/17/23 13:52
Total Bilirubin 0.6 mg/dl (0.2-1.3) 06/17/23 13:52
AST 24 U/L (17-59) 06/17/23 13:52
ALT 17 U/L (0-50) 06/17/23 13:52
Alkaline Phosphatase 58 U/L (38-126) 06/17/23 13:52
Data Reviewed
-
Diagnostic Radiology: Report Reviewed by me
Lab Data: Labs Reviewed by me
Impression/Plan
-
#sob/acute on chornic hypoxic respiratory failure/lethargic likely from LLL pneumonia
-failed outpatient abx therapy
-chest x ray with Severe left basilar pneumonia.
-blood culture sent from ER
-uses 2l at baseline
-at present requiring
-continue supplemental oxygen to keep sat>92
--wean as tolerated
-iv ceftriaxone and zithro continued
-STAT ABG
-covid flu negative
-obtain urine legionella, strep pneumoniae
-speech consulted
-PT/OT consulted
-pulmonary consulted
#anemia of chronic disease
-hgb at 11.3
-no active bleeding
-ctm
# COPD exacerbation
-nebs, Pulmicort continued
-breo continued
#hypothyroidism
-levothyroxine continued
# Diabetes type 2
-hold metformin,Januvia
-sliding scale
#Schizophrenia
-Depakote, hydroxyzine, fanapt, olanzapine continued
#essential HTN
-atenolol
-hold lisinopril as BP is soft
# Hyperlipidemia-continue statin
# Parox Afib
-EKG with NSR
-atenolol
#MRSA
# Developmental delay
Premature baby-2lbs and 9 ounces
# Ambulatory dysfunction-PT OT
# Glaucoma
Decreased vision in the left eye
-eye drops continued
# Ex-smoker
#DVT PPX - Lovenox
#Full code
[2023-06-17] MEDS: DECADRON 6 MG IV (17:35)
[2023-06-17 17:55] LABS: O2 Saturation % 98.9 % (94-98); PO2 131 mmHg (83-108); pH 7.34 (7.35-7.45)
[2023-06-17 17:57] LABS: PCO2 75 mmHg (35-48)
[2023-06-17 17:58] LABS: HCO3 40.5 mmol/L (21-28)
[2023-06-17] MEDS: NSS 1000 IV ×3 (18:20→23:03)
[2023-06-17 18:21] LABS: Glucose - Point of Care 125 mg/dl (70-99)
[2023-06-17] MEDS: ZOSYN 50 IV (18:29)
--- NOTE | 2023-06-17 18:44 | PHA.VAN.IN ---
Assessment
- Assessment
Renal Function: Appears similar to baseline
- Previous Dosing Experience
Previous Regimen: VANCO 1500MG Q12H
Date of Regimen: 04/26/2023-05/01/2023
Provided Trough of: 12.4
Provided AUC of: 475
Patient's SCR is: Similar to previous dosing experience
Patient's weight is: Decreased compared to previous dosing experience
Plan
- Plan
Initial / Loading Dose: VANCO 2000 MG X1
Maintenance Regimen: VANCO 1500 MG Q12H
Monitoring: CONSIDER LEVELS PRIOR TO 4TH MAINTENANCE DOSE
Pharmacokinetics Vancomycin I
- -
Patient Age: 63
Patient Sex: Male
Vancomycin Day #: 1
Indication: PULM
Requesting Provider: DR. PRADHAN
Height / Weight:
Height 5 ft 7 in
Actual Weight 88.7 kg
Pertinent Past Medical History: COPD, RECENT ADMISSION 04/24
- Vital Signs / Lab Results
Temp Pulse Resp BP Pulse Ox
99.1 F 92 33 110/55 98
06/17/23 13:45 06/17/23 18:34 06/17/23 18:34 06/17/23 18:34 06/17/23 13:45
Lab Results - Hematology
06/17/23
13:52
WBC 4.9
Lab Results - Chemistry
06/17/23
13:52
BUN 21 H
Creatinine 0.6 L
Estimated Creat Clear > 125
Albumin 3.5
06/17/23
13:52
Lactic Acid 1.3
[2023-06-17] MEDS: VANCOCIN 540 MG IV (19:01)
--- NOTE | 2023-06-17 20:45 | PTCARENOTE ---
Patient arrived to room 3352 on Bipap, IVF and abx infusing. Drowsy but arousable. Able to state name when woken up. Tele applied showing SR/ST 90-100s. CHG bath done. Pt incont of urine. unable to complete admission questions d/t lethargy and poor
historian. Bed alarm set for safety. Reminded pt to use when needing assistance. Call mullins within reach.
[2023-06-17] MEDS: PULMICORT 0.5 MG INH (21:24)
[2023-06-17] MEDS: NSS IV (23:01)
[2023-06-17] MEDS: DEPAKOTE (12 HR RELEASE) PO ×2 (23:02)
[2023-06-17] MEDS: ATARAX PO (23:02)
[2023-06-17] MEDS: ZYPREXA PO (23:03)
[2023-06-17] MEDS: COSOPT EYE DROPS 1 DROP BOTH EYES (23:04)
[2023-06-17] MEDS: LOVENOX 40 MG SC (23:06)
[2023-06-18] VITALS (18 sets, daily range): BP systolic 85–147; BP diastolic 35–92; PULSE 2–90; O2SAT 97; BMI 28.8
[2023-06-18 00:36] LABS: Glucose - Point of Care 222 mg/dl (70-99)
[2023-06-18] MEDS: ZOSYN 50 IV ×5 (00:44→23:43)
--- NOTE | 2023-06-18 01:00 | W.PN.UPDATE ---
Update Note
Progress Note Update
Patient was admitted with chronic hypoxic respiratory failure/lethargic currently on Bipap, patient with medical history of epilepsy not able to take oral meds for tonight, one time order of IV valproate sodium 1250mg to cover his night dose.
[2023-06-18] MEDS: DEPACON 62.5 MG IV (01:44)
[2023-06-18] MEDS: DECADRON 6 MG IV ×2 (02:42→11:40)
--- NOTE | 2023-06-18 03:39 | PTCARENOTE ---
Addendum entered by Alan Perdomo RN 06/18/23 06:36:
Pt sat up in bed, able to swallow his Synthroid this morning whole with water. No s/s of aspiration. Reminded to drink slowly. Call mullins left within reach. bed alarm set.
Original Note:
Pt ripped off bipap mask multiple times. RT made aware, placed on 6L NC. Sp02 93-97%.
[2023-06-18 04:37] LABS: Hematocrit 31.8 % (39.0-52.0); Hemoglobin 9.9 g/dL (13.0-18.0); Mean Corp Hgb Conc. 31.1 g/dL (33.0-37.0); Mean Corpuscular Hgb 31.6 pg (27.0-31.0); Mean Corpuscular Volume 101.6 fL (80.0-94.0); Mean Platelet Volume 10.7 fL (7.4-10.4); Platelet Count 174 10^3/uL (130-400); Red Blood Cell Count 3.13 10^6/uL (4.70-6.10); White Blood Cell Count 4.7 10^3/uL (4.8-10.8)
[2023-06-18] MEDS: VANCOCIN 300 ML IV (05:05)
[2023-06-18] MEDS: VANCOCIN 300 MG IV (05:05)
[2023-06-18 05:07] LABS: Blood Urea Nitrogen 21 mg/dl (9-20); Calcium 8.1 mg/dl (8.4-10.2); Carbon Dioxide 36 mmol/L (22-30); Chloride 101 mmol/L (98-107); Estimated Creatinine Clearance 124 ml/min; Glucose 205 mg/dl (70-99); Potassium 4.2 mmol/L (3.5-5.1); Sodium 139 mmol/L (135-145); eGFR > 60.00
[2023-06-18] MEDS: SYNTHROID 200 MCG PO (05:58)
[2023-06-18] MEDS: PULMICORT 0.5 MG INH ×2 (07:43→19:40)
[2023-06-18 07:55] LABS: Absolute Neutrophils -Man Diff 3.3 10^3/uL (1.4-6.5); Band Neutrophils 21 % (0-3); Lymphocytes 15 % (20-51); Monocytes 4 % (2-9); Segmented Neutrophils 50 % (42-75)
[2023-06-18 07:56] LABS: Macrocytosis 1+; Metamyelocytes 5 % (-); Myelocytes 5 % (-); Normal RBC Morphology No
[2023-06-18 07:57] LABS: Total Cells Counted 100
[2023-06-18 08:23] LABS: Glucose - Point of Care 199 mg/dl (70-99)
[2023-06-18] MEDS: DEPAKOTE (12 HR RELEASE) 250 MG PO ×2 (08:48→20:43)
[2023-06-18] MEDS: NOVOLOG FLEXPEN-LOW RESISTANCE 1 UNITS SC (08:48)
[2023-06-18] MEDS: LIPITOR 20 MG PO (08:48)
[2023-06-18] MEDS: DEPAKOTE (12 HR RELEASE) 1000 MG PO ×2 (08:48→20:42)
[2023-06-18 09:31] LABS: Platelets Checked Yes
[2023-06-18] MEDS: COSOPT EYE DROPS 1 DROP BOTH EYES ×2 (10:05→20:43)
[2023-06-18 10:14] LABS: Venous Blood Gas B.E. 9.9 mmol/L (-4 to +4); Venous Blood Gas HCO3 37.5 mmol/L (22-27); Venous Blood Gas O2 Sat % 98.8 %; Venous Blood Gas pCO2 68 mmHg (35-48); Venous Blood Gas pH 7.35 (7.32-7.43); Venous Blood Gas pO2 206 mmHg (30-50)
[2023-06-18 10:15] LABS: Venous Blood Gas O2 Therapy current mode of o2
[2023-06-18 10:38] LABS: Glycohemoglobin (HgbA1c) 7.5 % (4.0-5.6)
--- NOTE | 2023-06-18 10:44 | PTOTSP ---
ST Evaluation
Mild/functional oral dysphagia; able to tolerate regular solids despite edentulous status. Cog-linguistic deficits; baseline developmental delay
Pt received awake/alert requesting water. On nasal cannula 6Lo2 respirations appear even/unlabored. He has baseline cough prior to any PO trials. Cough is wet however non-productive. HOB raised upright for PO trials of puree, regular solids and thin
liquids. Demo adequate oral access/containment, mildly prolonged mastication and bolus was orally cleared. Thin liquids by straw sip swallow appears timely. No overt s/sx of aspiration observed
Recommend
1. Regular Solids / Thin liquids
2. Standard aspiration and reflux precautions (has GERD dx)
3. Small bites and slow rate
4. Meds oral with sips of water
5. 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 RATTLE LEAK AND SQUEAK REPAIRER signing off please reconsult as needed
[2023-06-18 10:49] LABS: Procalcitonin < 0.05 ng/ml (0.0-0.25)
--- NOTE | 2023-06-18 10:53 | CM ---
Patient from [facility] with Hx intellectual disability and schizophrenia with Dx acute on chornic hypoxic respiratory failure/lethargic likely from LLL pneumonia. O2 4L. Receiving IV Decadron, Zosyn, Vanco. ST Eval. PT & OT Evals
pending.
[phone] the patient resides there in their 2 story facility with bedroom on 2nd floor.
He is normally alert & cooperative. The patient requires assistance with ADLs and ambulated independently without an assistive device.
Since his last admission to the patient has 'gone down hill' and has been weak.
He has no DME, prior VN or SNF.
PCP - Rubio Edwards
Pharmacy - [facility] (fax [phone])
The phone for report [phone], fax [phone].
They have not notified the patient's sister Laila re; the admission but their SW will do so.
[facility] has a transport van and can provide transport home.
Plan follow up after PT/OT Evals.
[2023-06-18 12:18] LABS: Glucose - Point of Care 249 mg/dl (70-99)
--- NOTE | 2023-06-18 12:21 | PHA.VAN.FU ---
Vancomycin Assessment / Plan
- Assessment
Renal Function: Stable (0.6>0.6)
WBC's are: Trending Down (4.9>4.7)
In the past 24 hrs, patient has been: Afebrile
Concomitant Antimicrobials: Piperacillin-tazobactam
- Dosing Plan
Continue: Vancomycin 1500mg IV Q12hrs
- Monitoring Plan
No level(s) ordered at this time: Will order levels according to vancomycin dosing protocol
MRSA Screen: Ordered per protocol (PCR is in progress)
- Follow Up
Pharmacy will continue to follow.
Vancomycin Follow UP
- -
Patient Age: 63
Patient Sex: Male
Vancomycin Day #: 2
Indication: Pulmonary/Respiratory
Requesting Provider: DR. PRADHAN
Pertinent Antimicrobial Allergies:
No antibiotic allergies
Height / Weight:
Height 5 ft 9 in
Actual Weight 88.4 kg
IBW in k.7
Adjusted BW in k.8
Pertinent Past Medical History: COPD, RECENT ADMISSION 04/24
- Vital Signs / Lab Results
Temp Pulse Resp BP Pulse Ox
98.0 F 71 19 121/92 96
06/18/23 07:56 06/18/23 07:46 06/18/23 07:46 06/18/23 06:05 06/18/23 07:46
Lab Results - Hematology
06/17/23 06/18/23
13:52 03:57
WBC 4.9 4.7 L
Band Neutrophils 21 H D
Lab Results - Chemistry
06/17/23 06/18/23
13:52 03:57
BUN 21 H 21 H
Creatinine 0.6 L 0.6 L
Estimated Creat Clear > 125 124
Albumin 3.5
06/17/23
13:52
Lactic Acid 1.3
Microbiology Results
06/18/23 10:23 Nasal Screen MRSA (PCR) - Final
Nose MRSA not detected - performed by PCR methodology.
06/18/23 03:40 Legionella Urinary Antigen - Final
Urine Negative for Legionella pneumophila Serogroup 1 antigen.
A negative result does not rule out the possiblity of
Legionella infection due to other serogroups or species of
Legionella. Clinical correlation is recommended.
Streptococcus pneumoniae Antigen (M - Final
Negative for Streptococcus pneumoniae antigen.
A negative result does not exclude infection with
Streptococcus pneumoniae. Clinical correlation is
recommended.
[2023-06-18] MEDS: NOVOLOG FLEXPEN-LOW RESISTANCE 2 UNITS SC (12:35)
--- NOTE | 2023-06-18 13:02 | W.PN.HOSP.TC ---
Today's Communication/Plan
-
monitor vitals
see plan
bipap as needed; currently on 4 L; uses 2 L chronically
unclear if he has bipap outpatient as it was suggested on last admission
dec decadron
cw nebs
abx for now; stop if cx remains neg and no source found
resume Januvia
Assessment / Plan
Assessment / Plan
General:�Well Developed, Well Nourished and No Apparent Distress
HEENT:�NormoCephalic, Moist mucous membranes and Atraumatic
Respiratory:�Decreased Breath Sounds,mild wheezing
Cardiac:�S1/S2 and Regular Rhythm; No Murmur or Rub
GI:�Soft, Non Tender, Non Distended and Normal Bowel Sounds; No Organomegaly
Rectal:�Deferred by Provider
Musculoskeletal:�No Clubbing, No Cyanosis and No Edema
Skin:�No Rash
Neuro:�Nonfocal/grossly intact
Psych:�Calm
sob/acute on chronic hypoxic hypercarbic respiratory failure
suspect above 2/2 non compliant with bipap; per last time dc patient was supposed to be on bipap at long-term
-chest x ray with Severe left basilar pneumonia.
-blood culture pending; if cx neg then consider stopping abx; procal neg
-uses 2l at baseline, currently on 4 L; overnight was on bipap 20/7; use bipap when sleeping atleast; believe patient is noncompliant with his BiPAP
Wean O2 as tolerated
MRSA screen negative, DC Vanco. Continue zosyn
monitor VBG
-covid flu negative
urine legionella, strep pneumoniae neg
-Seen by speech, regular rate and
-PT/OT following
-pulmonary consulted
#anemia of chronic disease
-no active bleeding
# COPD exacerbation
-nebs, Pulmicort
-duonebs standing and prn
decadron; wean to 4Q8
on trelegy at home
#hypothyroidism
-levothyroxine continued
# Diabetes type 2
-hold metformin
Resume Januvia, Accu-Chek
-sliding scale
A1c 7.5
#Schizophrenia
-Depakote, hydroxyzine, fanapt, olanzapine continued
#essential HTN
-atenolol
-hold� lisinopril for now as BP on lower end
# Hyperlipidemia-continue statin
# Parox Afib
-EKG with NSR
-atenolol
#MRSA
# Developmental delay
Premature baby-2lbs and 9 ounces
# Ambulatory dysfunction-PT OT
# Glaucoma
Decreased vision in the left eye
-eye drops continued
# Ex-smoker
#DVT PPX - Lovenox
#Full code
I spent a total of 53 minutes with the patient or on the floor. More than 50% of this time involved counseling and coordination of care.
Anticipated Discharge: 24 - 48 hours
Subjective/Interval History
-
Date of Service: June 18, 2023
denies nausea
Objective Data
-
Labs:
Laboratory Results
06/18/23
03:57
WBC 4.7 L
Hgb 9.9 L
Hct 31.8 L
Plt Count 174
Sodium 139
Potassium 4.2
Chloride 101
Carbon Dioxide 36 H
BUN 21 H
Creatinine 0.6 L
Glucose 205 H
Calcium 8.1 L
Vital Signs:
Vital Signs
Temp Pulse Resp BP Pulse Ox
98.0 F 71 19 121/92 96
06/18/23 07:56 06/18/23 07:46 06/18/23 07:46 06/18/23 06:05 06/18/23 07:46
I&O
06/17/23 06/18/23 06/19/23
06:59 06:59 06:59
Intake Total 1200 / 1200
Output Total 1600 / 1600
Balance -400 / -400
[2023-06-18] MEDS: NSS IV ×2 (13:03)
[2023-06-18] MEDS: JANUVIA 100 MG PO (14:34)
[2023-06-18] MEDS: DECADRON 4 MG IV ×2 (14:35→22:00)
--- NOTE | 2023-06-18 15:45 | CON.PUL ---
Consultation
Consultation Request
Date/Time Consultation Requested: 06/18/2023
Date/Time Consultation Performed: 06/18/2023
Requesting Provider: Dr. Beltran
Performing Provider: Dr Anu Addison
Reason for Consultation: Acute exacerbation COPD/recurrent pneumonia/hypercapnic respiratory failure
Medical History
-
History of Present Illness:
63-year-old man with past medical history significant for severe COPD, chronic hypercapnic respiratory failure, type 2 diabetes, schizophrenia, paroxysmal atrial fibrillation not on anticoagulation who came to the hospital complaining of shortness
of breath. Concern for pneumonia. Patient was in the hospital about a month ago with similar complaints and he was discharged on BiPAP due to chronic hypercapnia. He was completed on antibiotic therapy.
Found to be bronchospastic state started on steroids and intensified nebulizer regimen.
He was placed on antibiotic therapy for hospital-acquired pathogens.
Patient states that he feels better. Has some coughing without phlegm production or hemoptysis. Denies any chest pain.
Past Medical History
Past Medical History: Other (See assessment and plan section)
Social History
Tobacco: Former Smoker
Family History
Family History: Unable to Obtain
Allergies / Home Medications
Allergies
Allergy/AdvReac Type Severity Reaction Status Date / Time
No Known Allergies Allergy Verified 06/17/23 01:54
Home Medications
Medication Instructions Recorded Confirmed Last Taken Type
sitagliptin phosphate 100 mg 100 mg PO DAILY Diabetes 10/12/18 06/17/23 04/23/23 History
tablet (Januvia)
fexofenadine 180 mg tablet 180 mg PO DAILY Allergies 07/08/19 06/17/23 04/23/23 History
levothyroxine 200 mcg tablet 200 mcg PO DAILY AT 0700 Thyroid 07/08/19 06/18/23 04/23/23 History
acetaminophen 325 mg tablet 650 mg PO Q4HPRN PRN mild pain 04/24/23 06/17/23 04/11/23 History
(Tylenol)
atorvastatin 20 mg tablet 20 mg PO DAILY High Cholesterol 04/24/23 06/17/23 04/23/23 History
ipratropium 0.5 mg-albuterol 3 mg 3 ml inhalation R Q4HPRN PRN SOB/ 04/24/23 06/17/23 Unknown History
(2.5 mg base)/3 mL nebulization wheezing
soln
polyethylene glycol 3350 17 gram 17 g PO DAILY PRN constipation 04/25/23 06/17/23 Unknown History
oral powder packet (Miralax)
albuterol sulfate 90 mcg/actuation 1 - 2 puff inhalation R Q4HPRN PRN 06/17/23 06/17/23 Unknown History
aerosol inhaler (Ventolin HFA) shortness of breath/wheezing
aluminum hydrox-magnesium carb 95 15 ml PO DAILYPRN PRN acid 06/17/23 06/17/23 Unknown History
mg-358 mg/15 mL oral suspension
(Acid Gone Antacid)
atenolol 25 mg tablet 25 mg PO DAILY Blood Pressure 06/17/23 06/17/23 Unknown History
cyanocobalamin (vitamin B-12) 500 500 mcg PO DAILY Supplement 06/17/23 06/17/23 Unknown History
mcg tablet
divalproex 250 mg tablet,delayed 250 mg PO BID@0800,1999 mental 06/17/23 06/17/23 Unknown History
release health
divalproex 500 mg tablet,delayed 1,000 mg PO BID@0800,1999 mental 06/17/23 06/17/23 Unknown History
release health
dorzolamide 22.3 mg-timolol 6.8 1 drp BOTH EYES BID@0800,1999 Eye 06/17/23 06/17/23 Unknown History
mg/mL eye drops Condition
fluticasone fur. 100 mcg-umeclid 1 inh inhalation R DAILY 06/17/23 06/17/23 Unknown History
62.5 mcg-vilant 25 mcg Lung/Breathing Issues
inhalat.powder (Trelegy Ellipta)
hydroxyzine pamoate 50 mg capsule 50 mg PO DAILY@1999 Mental 06/17/23 06/17/23 Unknown History
Health/Anxiety
iloperidone 12 mg tablet (Fanapt) 12 mg PO DAILY@1999 [facility] 06/17/23 06/17/23 Unknown History
insulin glulisine U-100 100 0 sliding scale dose SC 06/17/23 06/17/23 Unknown History
unit/mL subcutaneous pen (Apidra DIRECTED Diabetes
SoloStar U-100 Insulin)
lisinopril 2.5 mg tablet 2.5 mg PO DAILY Blood pressure 06/17/23 06/17/23 Unknown History
metformin 500 mg tablet 500 mg PO BID@0800,1999 Diabetes 06/17/23 06/17/23 Unknown History
olanzapine 20 mg tablet 20 mg PO DAILY@1999 [facility] 06/17/23 06/17/23 Unknown History
Review of Systems
-
Unable to Obtain full review of systems at this time due to: Acuity
Vitals / Labs / Diagnostic Testing
Vital Signs
Temp Pulse Resp BP Pulse Ox
97.6 F 71 19 121/92 96
06/18/23 11:37 06/18/23 07:46 06/18/23 07:46 06/18/23 06:05 06/18/23 07:46
Lab Data
06/18/23 03:57
06/18/23 03:57
Laboratory Results
06/17/23
17:42
pH 7.34 L
pCO2 75 H*
pO2 131 H
HCO3 40.5 H*
O2 Delivery Level
Microbiology
06/17/23 13:52 Blood/Venous Blood Culture - Preliminary
No Growth in 24 hours- Final report to follow
06/18/23 10:23 Nose Nasal Screen MRSA (PCR) - Final
MRSA not detected - performed by PCR methodology.
06/18/23 03:40 Urine Legionella Urinary Antigen - Final
Negative for Legionella pneumophila Serogroup 1 antigen.
A negative result does not rule out the possiblity of
Legionella infection due to other serogroups or species of
Legionella. Clinical correlation is recommended.
06/18/23 03:40 Urine Streptococcus pneumoniae Antigen (M - Final
Negative for Streptococcus pneumoniae antigen.
A negative result does not exclude infection with
Streptococcus pneumoniae. Clinical correlation is
recommended.
Diagnostic Testing:
Physical Exam
-
HEENT: Normocephalic
Cardiovascular: S1/S2
Respiratory: Wheeze (Minimal bilateral expiratory. Minimal Rales in the left lower lobe.) and Non-Labored Respirations
GI: Soft, Non Distended and Non Tender
Neurology: Awake, Alert, No Motor Deficits and Other (Cooperative. Coughing on demand)
Skin: Warm
General: Respiratory Distress
Assessment
-
63-year-old man with past medical history noted. In patient was admitted to the hospital right lower lobe pneumonia. Possibly aspiration. As well as hypercapnia. At that time discharged on BiPAP. In the interim he was seen in
our office, CT chest was ordered and showed left lower lobe pneumonia. Patient developed shortness of breath and came for evaluation. Aspiration is suspected.
Acute left lower lobe pneumonia-likely bacterial. Suspect aspiration.
Acute exacerbation of COPD secondary to above
Acute on chronic respiratory failure with hypercapnea -in the setting of pneumonia.
Acute respiratory failure with hypoxemia on supplemental oxygen
Chronic elevation of total serum CO2 since at least 2018
Acute respiratory insufficiency
Left lower lobe pneumonia on CAT scan 06/14/2023
Likely acute exacerbation of COPD secondary to above
Cannot rule out aspiration
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
Atrial fibrillation
Recent admission to the hospital: Discharged on 05/04/2023 acute exacerbation of COPD/right lower lobe pneumonia-hypercapnic respiratory failure.
COVID pneumonia, adm [facility] July 2019, required brief intubation
Developmental delay
Schizophrenia
Very severe COPD (FEV1/FVC 55 with FEV1: 1L (32% predicted) via PFT from 09/2021
DuoNebs/Pulmicort
Unable to perform inhaler technique.
Chronic hypercapnic respiratory failure discharged on BiPAP 05/2023. Lives in a residential
GERD
Hypothyroidism
HTN
DM
KATTY
BPH
Obesity
Former smoker
Plan and recommendations:
I agree with current therapy for pneumonia.
I suspect recurrent aspiration. In late April had right lower lobe pneumonia.
This time left lower lobe pneumonia.
-
Obtain a sputum culture if able. Patient states that he is not producing phlegm.
I agree with antibiotics to cover for hospital-acquired infections
-
He recently was evaluated by speech pathology in the outpatient setting-modified diet and aspiration precautions were given.
-
AECOPD:
Minimal Bronchospasm during my evaluation.
Agree with dexamethasone
Continue nebulizer therapy DuoNebs/Pulmicort which is his usual regimen in the outpatient setting as the patient is unable to perform proper inhaler technique.
Acapella device
Maintain pulse ox above 90%. Currently on 4 L on 99%. Wean off as able.
-
Chronic hypercapnic respiratory failure:
Mental status suspect baseline, following commands, coughing on demand. Alert and cooperative
ABG this admission 7.34/75/131.
She continue with BiPAP at bedtime and as needed.
Continue to treat COPD exacerbation and pneumonia.
Should continue BiPAP after discharge.
-
Eventual outpatient pulmonary follow-up, he was seen recently in our office. A low-dose radiation CT chest was ordered was reviewed. It was discovered to have a left lower lobe infiltrate. No suspicious lung nodules. ECW reivewed.
Initially Augmentin was prescribed by me over the weekend but the patient developed shortness of breath
Will continue to follow.
[2023-06-18] MEDS: NOVOLOG FLEXPEN-LOW RESISTANCE 5 UNITS SC (16:43)
[2023-06-18 16:53] LABS: Glucose - Point of Care 352 mg/dl (70-99)
[2023-06-18] MEDS: DUONEB 3 ML INH ×2 (16:53→19:40)
[2023-06-18] MEDS: LOVENOX 40 MG SC (19:00)
[2023-06-18] MEDS: ZYPREXA 20 MG PO (20:42)
[2023-06-18] MEDS: ATARAX 50 MG PO (20:43)
[2023-06-18 21:43] LABS: Glucose - Point of Care 382 mg/dl (70-99)
[2023-06-18] MEDS: NOVOLOG FLEXPEN 10 UNITS SC (22:35)
[2023-06-19] VITALS (8 sets, daily range): BP systolic 107–148; BP diastolic 57–86; BMI 29.1
[2023-06-19] MEDS: ZOSYN 50 IV (05:20)
[2023-06-19] MEDS: DECADRON 4 MG IV (05:20)
[2023-06-19] MEDS: SYNTHROID 200 MCG PO (05:21)
[2023-06-19 05:47] LABS: % Basophils 0.7 % (0-2); % Immature Granulocytes 8.2 % (0-0.5); % Lymphocytes 8.7 % (20.5-51.1); % Monocytes 7.1 % (1.7-9.3); % Neutrophils 75.3 % (42.2-75.2); Absolute Basophils 0.1 10^3/uL (0-0.2); Absolute Immature Granulocytes 0.6 10^3/uL (0-0.05); Absolute Lymphocytes 0.6 10^3/uL (1.2-3.4); Absolute Monocytes 0.5 10^3/uL (0.1-0.6); Absolute Neutrophils 5.2 10^3/uL (1.4-6.5); Hematocrit 31.4 % (39.0-52.0); Hemoglobin 10.2 g/dL (13.0-18.0); Mean Corp Hgb Conc. 32.5 g/dL (33.0-37.0); Mean Corpuscular Hgb 32.2 pg (27.0-31.0); Mean Corpuscular Volume 99.1 fL (80.0-94.0); Mean Platelet Volume 10.3 fL (7.4-10.4); Nucleated Red Blood Cells % 0 % (-); Platelet Count 194 10^3/uL (130-400); Red Blood Cell Count 3.17 10^6/uL (4.70-6.10); Red Cell Dist. Width 13.5 % (11.5-14.5); White Blood Cell Count 6.9 10^3/uL (4.8-10.8)
[2023-06-19 06:09] LABS: Blood Urea Nitrogen 21 mg/dl (9-20); Calcium 8.5 mg/dl (8.4-10.2); Carbon Dioxide 37 mmol/L (22-30); Chloride 95 mmol/L (98-107); Estimated Creatinine Clearance 93 ml/min; Glucose 221 mg/dl (70-99); Potassium 4.3 mmol/L (3.5-5.1); Sodium 135 mmol/L (135-145); eGFR > 60.00
--- NOTE | 2023-06-19 06:10 | W.PN.PUL3 ---
Today's Communication / Plan
-
Transition to oral prednisone
Continue IV antibiotics
Cultures, negative to date
Wean oxygen, out of bed to chair, ambulate
Discontinue CPAP, not tolerating
Continue nebs
Assessment
-
63-year-old man with past medical history noted. In patient was admitted to the hospital right lower lobe pneumonia. Possibly aspiration. As well as hypercapnia. At that time discharged on BiPAP. In the interim he was seen in
our office, CT chest was ordered and showed left lower lobe pneumonia. Patient developed shortness of breath and came for evaluation. Aspiration is suspected.
Acute left lower lobe pneumonia-likely bacterial. Suspect aspiration.
Acute exacerbation of COPD secondary to above
Acute on chronic respiratory failure with hypercapnea -in the setting of pneumonia.
Acute respiratory failure with hypoxemia on supplemental oxygen
Chronic elevation of total serum CO2 since at least 2018
Acute respiratory insufficiency
Left lower lobe pneumonia on CAT scan 06/14/2023
Likely acute exacerbation of COPD secondary to above
Cannot rule out aspiration
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
Atrial fibrillation
Recent admission to the hospital: Discharged on 05/04/2023 acute exacerbation of COPD/right lower lobe pneumonia-hypercapnic respiratory failure.
COVID pneumonia, adm [facility] July 2019, required brief intubation
Developmental delay
Schizophrenia
Very severe COPD (FEV1/FVC 55 with FEV1: 1L (32% predicted) via PFT from 09/2021
DuoNebs/Pulmicort
Unable to perform inhaler technique.
Chronic hypercapnic respiratory failure discharged on BiPAP 05/2023. Lives in a intermediate
GERD
Hypothyroidism
HTN
DM
KATTY
BPH
Obesity
Former smoker
Plan and recommendations:
At this time, patient appears to be comfortable on nasal cannula, 95%
Chest exam is clear, decreased at the base
Describes dry cough
Chest x-ray 06/16 consistent with left lower lobe pneumonia
Moving forward
Continue with empiric antibiotics, currently on Zosyn
I suspect recurrent aspiration. In late April had right lower lobe pneumonia.
This time left lower lobe pneumonia.
Positional therapy, aspiration precautions
Patient unable to produce sputum
-
He recently was evaluated by speech pathology in the outpatient setting-modified diet and aspiration precautions were given.
-
Patient without any wheezing on exam today
Transition to oral prednisone with taper to off over the next few days
Continue nebulizer therapy DuoNebs/Pulmicort which is his usual regimen in the outpatient setting as the patient is unable to perform proper inhaler technique.
Acapella device
Maintain pulse ox above 90%. Currently on 4 L on 99%. Wean off as able.
Out of bed to chair, ambulate, PT
-
Chronic hypercapnic respiratory failure:
Mental status suspect baseline, following commands, coughing on demand. Alert and cooperative
ABG this admission 7.34/75/131.
Unfortunately patient not able to tolerate CPAP/BiPAP
Will discontinue
Continue to treat COPD exacerbation and pneumonia.
Doubt patient will be able to continue as outpatient, BiPAP. This can be addressed as an outpatient.
-
Eventual outpatient pulmonary follow-up, he was seen recently in our office. A low-dose radiation CT chest was ordered was reviewed. It was discovered to have a left lower lobe infiltrate. No suspicious lung nodules. ECW reivewed.
Initially Augmentin was prescribed by me over the weekend but the patient developed shortness of breath
Appropriate follow-up post discharge with appropriate follow-up imaging
DVT prophylaxis: On enoxaparin
GI prophylaxis: Not indicated at this time, follow
Disposition efforts
Subjective Data
-
Date of Service:
Date of Service: June 19, 2023
Subjective:
Patient with dry cough through the night, nonproductive, no blood. Feels he needs to have a bowel movement, denies abdominal pain, nausea. Lying on his side, comfortable, conversant
Objective Data
Data Reviewed
Vital Signs / I&O / Oxygen:
Vital Signs
Temp Pulse Resp BP Pulse Ox
97.7 F 66 14 107/57 97
06/19/23 03:38 06/19/23 05:00 06/19/23 05:00 06/19/23 04:00 06/19/23 05:00
Intake and Output
06/17/23 06/18/23 06/19/23
06:59 06:59 06:59
Intake Total 1200 / 1200 480 / 480
Output Total 1600 / 1600
Balance -400 / -400 480 / 480
SaO2 97
Nasal Cannula flow liters per 2
minute
Physical Exam
General: Comfortable
HEENT: Normocephalic and Anicteric
Cardiovascular: S1-S2, Regular Rhythm, Murmur (n), Rub (n) and Peripheral Edema (n)
Respiratory: Wheeze (n), Crackles (n), Rhonchi and Other (Decreased at base)
GI: Soft, Distended, Non Tender and Normal Bowel Sounds
Neurology: Awake, Alert and No Motor Deficits (Moves all extremities)
Skin: Jaundice (n) and Rash (n)
Labs/Micro/Reports
Lab Data
06/19/23 05:17
06/19/23 05:17
Microbiology
06/17/23 22:17 Blood/Venous Blood Culture - Preliminary
No Growth in 24 hours- Final report to follow
06/17/23 22:54 Blood/Venous Blood Culture - Preliminary
No Growth in 24 hours- Final report to follow
06/17/23 13:52 Blood/Venous Blood Culture - Preliminary
No Growth in 24 hours- Final report to follow
06/18/23 10:23 Nose Nasal Screen MRSA (PCR) - Final
MRSA not detected - performed by PCR methodology.
06/18/23 03:40 Urine Legionella Urinary Antigen - Final
Negative for Legionella pneumophila Serogroup 1 antigen.
A negative result does not rule out the possiblity of
Legionella infection due to other serogroups or species of
Legionella. Clinical correlation is recommended.
06/18/23 03:40 Urine Streptococcus pneumoniae Antigen (M - Final
Negative for Streptococcus pneumoniae antigen.
A negative result does not exclude infection with
Streptococcus pneumoniae. Clinical correlation is
recommended.
[2023-06-19] MEDS: PULMICORT 0.5 MG INH ×2 (07:26→19:27)
[2023-06-19] MEDS: DUONEB 3 ML INH ×4 (07:26→19:27)
[2023-06-19 07:43] LABS: Glucose - Point of Care 253 mg/dl (70-99)
--- NOTE | 2023-06-19 07:56 | W.PN.HOSP.TC ---
Today's Communication/Plan
-
see bold, transfer to [place]
Assessment / Plan
Assessment / Plan
Gen: NAD, Awake and alert
Eyes: EOMI, PERRLA, no scleral icterus.
Neck: supple.
CV: RRR, +S1/S2, no m/r/g.
Resp: CTAB, no rales, wheezes, or rhonchi.
Abd: +BS, soft, NT, ND
Skin: No rashes.
Neuro: CN 2-12 intact, non-focal.
Psych: Normal mood and affect.
sob/acute on chronic hypoxic hypercarbic respiratory failure
suspect above 2/2 non compliant with bipap; per last time dc patient was supposed to be on bipap at halfway
-chest x ray with Severe left basilar pneumonia.
-blood culture NGTD; procal neg, MRSA screen NEG, stop abx
-uses 2l at baseline, currently on 3L, last night pt only tolerated bipap for a couple of hours; believe patient is noncompliant with his BiPAP
Wean O2 as tolerated
monitor VBG
-covid flu negative
urine legionella, strep pneumoniae neg
-Seen by speech, regular rate and
-PT/OT following
-pulmonary following
#anemia of chronic disease
-no active bleeding
Acute COPD exacerbation
-nebs, Pulmicort
-duonebs standing and prn
-was on IV decadron; on on PO Prednisone
on trelegy at home
#hypothyroidism
-levothyroxine continued
# Diabetes type 2
-holding metformin
-cont Januvia, Accu-Chek
-sliding scale
A1c 7.5
#Schizophrenia
-Depakote, hydroxyzine, fanapt, olanzapine continued
#essential HTN
-atenolol
-holding home lisinopril
# Hyperlipidemia-continue statin
# Parox Afib
-EKG with NSR
-atenolol
#MRSA
# Developmental delay
Premature baby-2lbs and 9 ounces
# Ambulatory dysfunction-PT OT
# Glaucoma
Decreased vision in the left eye
-eye drops continued
# Ex-smoker
FULL/Lovenox
Anticipated Discharge: 24 - 48 hours
Subjective/Interval History
-
Date of Service: June 19, 2023
Denies SOB.
Objective Data
-
Labs:
Laboratory Results
06/19/23
05:17
WBC 6.9
Hgb 10.2 L
Hct 31.4 L
Plt Count 194
Sodium 135
Potassium 4.3
Chloride 95 L
Carbon Dioxide 37 H
BUN 21 H
Creatinine 0.8
Glucose 221 H
Calcium 8.5
Vital Signs:
Vital Signs
Temp Pulse Resp BP Pulse Ox
97.9 F 80 18 107/57 96
06/19/23 07:35 06/19/23 07:28 06/19/23 07:28 06/19/23 04:00 06/19/23 07:28
I&O
06/18/23 06/19/23 06/20/23
06:59 06:59 06:59
Intake Total 1200 / 1200 480 / 480
Output Total 1600 / 1600
Balance -400 / -400 480 / 480
[2023-06-19] MEDS: COSOPT EYE DROPS 1 DROP BOTH EYES ×2 (09:01→19:46)
[2023-06-19] MEDS: NOVOLOG FLEXPEN-LOW RESISTANCE SC (09:01)
[2023-06-19] MEDS: DEPAKOTE (12 HR RELEASE) 250 MG PO ×2 (09:01→19:45)
[2023-06-19] MEDS: TENORMIN 25 MG PO (09:01)
[2023-06-19] MEDS: DEPAKOTE (12 HR RELEASE) 1000 MG PO ×2 (09:01→19:45)
[2023-06-19] MEDS: JANUVIA 100 MG PO (09:01)
[2023-06-19] MEDS: NOVOLOG FLEXPEN-HIGH RESISTANCE 7 UNITS SC ×2 (09:02→17:58)
[2023-06-19] MEDS: LIPITOR 20 MG PO (09:02)
[2023-06-19 12:17] LABS: Glucose - Point of Care 383 mg/dl (70-99)
[2023-06-19] MEDS: NOVOLOG FLEXPEN-HIGH RESISTANCE 12 UNITS SC (12:24)
[2023-06-19] MEDS: DELTASONE 40 MG PO (12:24)
[2023-06-19 17:07] LABS: Glucose - Point of Care 261 mg/dl (70-99)
[2023-06-19] MEDS: LOVENOX 40 MG SC (17:58)
[2023-06-19] MEDS: ZYPREXA 20 MG PO (19:45)
[2023-06-19] MEDS: ATARAX 50 MG PO (19:45)
[2023-06-19 21:50] LABS: Glucose - Point of Care 344 mg/dl (70-99)
[2023-06-19] MEDS: NOVOLOG FLEXPEN 10 UNITS SC (22:41)
[2023-06-20 00:25] VITALS: BP 148/84
[2023-06-20] MEDS: SYNTHROID 200 MCG PO (05:12)
[2023-06-20 05:33] LABS: Hematocrit 28.8 % (39.0-52.0); Hemoglobin 9.7 g/dL (13.0-18.0); Mean Corp Hgb Conc. 33.7 g/dL (33.0-37.0); Mean Corpuscular Hgb 32.1 pg (27.0-31.0); Mean Corpuscular Volume 95.4 fL (80.0-94.0); Mean Platelet Volume 10.2 fL (7.4-10.4); Nucleated Red Blood Cells % 0.3 % (-); Platelet Count 205 10^3/uL (130-400); Red Blood Cell Count 3.02 10^6/uL (4.70-6.10); Red Cell Dist. Width 13.4 % (11.5-14.5)
[2023-06-20 06:03] LABS: Blood Urea Nitrogen 25 mg/dl (9-20); Chloride 92 mmol/L (98-107); Estimated Creatinine Clearance 93 ml/min; Glucose 218 mg/dl (70-99); Potassium 4.4 mmol/L (3.5-5.1); Sodium 134 mmol/L (135-145); eGFR > 60.00
[2023-06-20 06:16] LABS: Carbon Dioxide 35 mmol/L (22-30)
--- NOTE | 2023-06-20 07:05 | W.PN.PUL3 ---
Today's Communication / Plan
-
Dc BIPAP
Dc Steroids
Off abx
Repeat ABG later today
Will need CXR in [address] chest in 3 mo
Assessment
-
63-year-old man with past medical history noted. In patient was admitted to the hospital right lower lobe pneumonia. Possibly aspiration. As well as hypercapnia. At that time discharged on BiPAP. In the interim he was seen in
our office, CT chest was ordered and showed left lower lobe pneumonia. Patient developed shortness of breath and came for evaluation. Aspiration is suspected.
Acute left lower lobe pneumonia-likely bacterial. Suspect aspiration.
Acute exacerbation of COPD secondary to above
Acute on chronic respiratory failure with hypercapnea -in the setting of pneumonia.
Acute respiratory failure with hypoxemia on supplemental oxygen
Chronic elevation of total serum CO2 since at least 2018
Acute respiratory insufficiency
Left lower lobe pneumonia on CAT scan 06/14/2023
Likely acute exacerbation of COPD secondary to above
Cannot rule out aspiration
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
Atrial fibrillation
Recent admission to the hospital: Discharged on 05/04/2023 acute exacerbation of COPD/right lower lobe pneumonia-hypercapnic respiratory failure.
COVID pneumonia, adm [facility] July 2019, required brief intubation
Developmental delay
Schizophrenia
Very severe COPD (FEV1/FVC 55 with FEV1: 1L (32% predicted) via PFT from 09/2021
DuoNebs/Pulmicort
Unable to perform inhaler technique.
Chronic hypercapnic respiratory failure discharged on BiPAP 05/2023. Lives in a [facility]
GERD
Hypothyroidism
HTN
DM
KATTY
BPH
Obesity
Former smoker
Plan and recommendations:
At this time, patient appears to be comfortable on RA, 95%
Chest exam is clear, decreased at the base
Sleeping comfortably
Chest x-ray 06/16 consistent with left lower lobe pneumonia
Moving forward
Antibiotics d/c
I suspect recurrent aspiration. In late April had right lower lobe pneumonia.
This time left lower lobe pneumonia.
Positional therapy, aspiration precautions
Patient unable to produce sputum
He recently was evaluated by speech pathology in the outpatient setting-modified diet and aspiration precautions were given
Repeat CXR in next 4-6 weeks
Patient without any wheezing on exam today
Would dc steroids
Continue nebulizer therapy DuoNebs/Pulmicort which is his usual regimen in the outpatient setting as the patient is unable to perform proper inhaler technique.
Acapella device
assess oxygen needs with ambulation
Out of bed to chair, ambulate, PT
Chronic hypercapnic respiratory failure:
ABG this admission 7.34/75/131.
Unfortunately patient not able to tolerate CPAP/BiPAP
Will discontinue BIPAP
Doubt patient will be able to continue as outpatient, BiPAP. This can be addressed as an outpatient.
Eventual outpatient pulmonary follow-up, he was seen recently in our office. A low-dose radiation CT chest was ordered was reviewed. It was discovered to have a left lower lobe infiltrate. No suspicious lung nodules. ECW reivewed.
Initially Augmentin was prescribed by me over the weekend but the patient developed shortness of breath
Appropriate follow-up post discharge with appropriate follow-up imaging
DVT prophylaxis: On enoxaparin
GI prophylaxis: Not indicated at this time, follow
Disposition efforts
Subjective Data
-
Date of Service:
Date of Service: June 20, 2023
Subjective:
Pt sleeping comfortably on RA. Pt refused BIPAP overnight
Objective Data
Data Reviewed
Vital Signs / I&O / Oxygen:
Vital Signs
Temp Pulse Resp BP Pulse Ox
97.5 F 50 17 148/84 94
06/20/23 00:25 06/20/23 00:25 06/20/23 00:25 06/20/23 00:25 06/20/23 05:18
Intake and Output
06/19/23 06/20/23 06/21/23
06:59 06:59 06:59
Intake Total 480 / 480 2270 / 2270
Balance 480 / 480 2270 / 2270
SaO2 94
Nasal Cannula flow liters per 2
minute
Physical Exam
General: Comfortable (sleeping)
HEENT: Normocephalic
Cardiovascular: S1-S2, Regular Rhythm, Murmur (n), Rub (n) and Peripheral Edema (n)
Respiratory: Wheeze (n), Crackles (n) and Rhonchi
Neurology: Lethargic (sleeping comfortably)
Skin: Warm
Labs/Micro/Reports
Lab Data
06/20/23 05:11
06/20/23 05:11
Microbiology
06/17/23 22:54 Blood/Venous Blood Culture - Preliminary
No Growth in 48 hours- Final report to follow
06/17/23 22:17 Blood/Venous Blood Culture - Preliminary
No Growth in 48 hours- Final report to follow
06/17/23 13:52 Blood/Venous Blood Culture - Preliminary
No Growth in 48 hours- Final report to follow
06/18/23 10:23 Nose Nasal Screen MRSA (PCR) - Final
MRSA not detected - performed by PCR methodology.
06/18/23 03:40 Urine Legionella Urinary Antigen - Final
Negative for Legionella pneumophila Serogroup 1 antigen.
A negative result does not rule out the possiblity of
Legionella infection due to other serogroups or species of
Legionella. Clinical correlation is recommended.
06/18/23 03:40 Urine Streptococcus pneumoniae Antigen (M - Final
Negative for Streptococcus pneumoniae antigen.
A negative result does not exclude infection with
Streptococcus pneumoniae. Clinical correlation is
recommended.
[2023-06-20] MEDS: DUONEB INH (07:45)
[2023-06-20] MEDS: PULMICORT INH (07:45)
[2023-06-20 08:14] LABS: Absolute Neutrophils -Man Diff 4.7 10^3/uL (1.4-6.5); Band Neutrophils 11 % (0-3); Lymphocytes 25 % (20-51); Metamyelocytes 4 % (-); Monocytes 5 % (2-9); Myelocytes 7 % (-); Segmented Neutrophils 48 % (42-75)
[2023-06-20 08:15] LABS: Hypochromasia 1+; Macrocytosis 1+; Normal RBC Morphology No; Platelets Checked Yes; Total Cells Counted 100
[2023-06-20] MEDS: PULMICORT 0.5 MG INH (08:49)
[2023-06-20] MEDS: DUONEB 3 ML INH ×2 (08:50→11:55)
[2023-06-20] MEDS: NOVOLOG FLEXPEN-HIGH RESISTANCE 2 UNITS SC (09:25)
[2023-06-20] MEDS: DEPAKOTE (12 HR RELEASE) 250 MG PO (09:26)
[2023-06-20] MEDS: JANUVIA 100 MG PO (09:27)
[2023-06-20] MEDS: DEPAKOTE (12 HR RELEASE) 1000 MG PO (09:27)
[2023-06-20] MEDS: DELTASONE 40 MG PO (09:27)
[2023-06-20] MEDS: COSOPT EYE DROPS 1 DROP BOTH EYES (09:27)
[2023-06-20] MEDS: TENORMIN 25 MG PO (09:27)
[2023-06-20] MEDS: LIPITOR 20 MG PO (09:27)
[2023-06-20 09:35] LABS: Glucose - Point of Care 182 mg/dl (70-99)
[2023-06-20 10:12] LABS: B.E. 12.1 mmol/L; HCO3 38.7 mmol/L (21-28); O2 Saturation % 93.4 % (94-98); PCO2 61 mmHg (35-48); PO2 66 mmHg (83-108); pH 7.41 (7.35-7.45)
[2023-06-20] MEDS: GLUCOPHAGE 500 MG PO (11:03)
[2023-06-20 11:29] VITALS: PULSE 57; PULSE 58; O2SAT 91; O2SAT 94
--- NOTE | 2023-06-20 12:12 | W.PN.HOSP.TC ---
Addendum entered and electronically signed by Gabriel Beltran MD 06/20/23 13:08:
Spoke with pulmonary and will discharge the patient with prednisone taper
Time of discharge 38 minutes
Original Note:
Today's Communication/Plan
-
Monitor vital signs and see plan
ABG noted
Discharge today if okay with pulmonary
cw prednisone
now on 2L
Assessment / Plan
Assessment / Plan
Gen: NAD, Awake and alert
Eyes: EOMI, PERRLA, no scleral icterus.
Neck: supple.
CV: RRR, +S1/S2, no m/r/g.
Resp: CTAB, no rales, wheezes, or rhonchi.
Abd: +BS, soft, NT, ND
Skin: No rashes.
Neuro: CN 2-12 intact, non-focal.
Psych: Normal mood and affect.
sob/acute on chronic hypoxic hypercarbic respiratory failure
suspect above 2/2 non compliant with bipap; per last time dc patient was supposed to be on bipap at care home
-chest x ray with Severe left basilar pneumonia.
-blood culture NGTD; procal neg, MRSA screen NEG, stop abx
-uses 2l at baseline, currently on 2L, not been able to tolerate BiPAP much; believe patient is noncompliant with his BiPAP
Wean O2 as tolerated
ABG 06/19 noted
-covid flu negative
urine legionella, strep pneumoniae neg
-Seen by speech, regular rate and
-PT/OT following
-pulmonary following
#anemia of chronic disease
-no active bleeding
Acute COPD exacerbation
-nebs, Pulmicort
-duonebs standing and prn
-was on IV decadron; now on PO Prednisone; taper on dc
on trelegy at home
#hypothyroidism
-levothyroxine continued
# Diabetes type 2
-restart metformin
-cont Januvia, Accu-Chek
-sliding scale
A1c 7.5
#Schizophrenia
-Depakote, hydroxyzine, fanapt, olanzapine continued
#essential HTN
-atenolol
-holding home lisinopril
# Hyperlipidemia-continue statin
# Parox Afib
-EKG with NSR
-atenolol
#MRSA
# Developmental delay
Premature baby-2lbs and 9 ounces
# Ambulatory dysfunction-PT OT
# Glaucoma
Decreased vision in the left eye
-eye drops continued
# Ex-smoker
FULL/Lovenox
Anticipated Discharge: Within 24 hours
Subjective/Interval History
-
Date of Service: June 20, 2023
denies pain
Objective Data
-
Labs:
Laboratory Results
06/20/23 06/20/23
05:11 09:59
WBC 8.0
Hgb 9.7 L
Hct 28.8 L
Plt Count 205
HCO3 38.7 H
Sodium 134 L
Potassium 4.4
Chloride 92 L
Carbon Dioxide 35 H
BUN 25 H
Creatinine 0.8
Glucose 218 H
Calcium 9.0
Vital Signs:
Vital Signs
Temp Pulse Resp BP Pulse Ox
97.0 F 50 17 148/84 94
06/20/23 07:40 06/20/23 00:25 06/20/23 00:25 06/20/23 00:25 06/20/23 10:05
I&O
06/19/23 06/20/23 06/21/23
06:59 06:59 06:59
Intake Total 480 / 480 2270 / 2270
Balance 480 / 480 2270 / 2270
[2023-06-20] MEDS: NOVOLOG FLEXPEN-HIGH RESISTANCE 4 UNITS SC (12:28)
[2023-06-20] MEDS: ZESTRIL 2.5 MG PO (12:30)
[2023-06-20 12:38] LABS: Glucose - Point of Care 228 mg/dl (70-99)
--- NOTE | 2023-06-20 13:08 | W.DCSUMMARY ---
Discharge Summary
Discharge Data
Date of Admission: 06/17/23
Date of Discharge: 06/20/23
-
Pending Results: No
Hospital Course
63-year-old male with past medical history of COPD, chronic hypercarbic respiratory failure, hypothyroidism, diabetes mellitus, schizophrenia, essential hypertension, hyperlipidemia, paroxysmal atrial fibrillation, developmental delay, glaucoma came
to the hospital with shortness of breath known to be in acute on chronic hypoxic hypercarbic respiratory failure. Patient was initially started on BiPAP. Patient was also started on IV steroids which was later transitioned to prednisone with
taper. Patient was seen by pulmonary throughout hospitalization. Patient imaging was also consistent with pneumonia so he was started on antibiotics. Procalcitonin was checked and was negative. COVID, flu, urine Legionella and Streptococcus was
also negative. Given these findings and no further fever, antibiotics was then discontinued. It was determined that patient symptoms could be secondary to intermittent aspiration. Patient did had difficulty tolerating BiPAP so pulmonary
recommended no BiPAP on discharge. Once patient symptoms were improving, he was then discharged with instructions to follow-up with all his physicians outpatient.
Discharge Plan
-
Patient Disposition: Home (Routine Discharge)
Discharge Diagnosis/Procedures: Acute on chronic hypoxic hypercarbic respiratory failure
COPD exacerbation
Suspect left lower lobe aspiration pneumonia
Condition: Fair
Diet: As tolerated and Diabetic, Carb Controlled
Activity: As tolerated
Driving Restrictions: Not until seen by your Dr
Bathing Restrictions: None
Other Services: ST
Activity Restrictions/Additional Instructions:
Will need CXR in [address] chest in 3 months
monitor oxygen status outpatient
Referrals:
Troy Jacobs MD [Active] -
(Pt needs CXR in [address] chest in 3 mo (high risk for lung cancer, needs to confirm CT chest cleared)
Appt in 5 weeks after CXR (LOCAL AREA NETWORK ADMINISTRATOR or doc))
UNKNOWN - PT DOES,NOT KNOW [Family Provider] - in less than 1 week
Prescriptions:
New
prednisone 10 mg Tablet
See Rx Instructions .ROUTE .COMPLEX Qty: 30 0RF
Rx Instructions:
Take By Mouth:
40 mg daily x3 days, 30 mg daily x3 days,
20 mg daily x3 days, 10 mg daily x3 days.
Continued
Januvia 100 MG tablet
100 mg PO DAILY
fexofenadine 180 MG tablet
180 mg PO DAILY
levothyroxine 200 MCG tablet
200 mcg PO DAILY AT 0700
acetaminophen [Tylenol] 325 mg Tablet
650 mg PO Q4HPRN PRN (Reason: mild pain)
atorvastatin 20 mg tablet
20 mg PO DAILY
ipratropium-albuterol 0.5 mg-3 mg(2.5 mg base)/3 mL Solution For Nebulization
3 ml INHALATION R Q4HPRN PRN (Reason: SOB/ wheezing)
polyethylene glycol 3350 [Miralax] 17 gram Powder In Packet
17 g PO DAILY PRN (Reason: constipation)
atenolol 25 mg Tablet
25 mg PO DAILY
dorzolamide-timolol 22.3-6.8 mg/mL Drops
1 drp BOTH EYES BID@
albuterol sulfate [Ventolin HFA] 90 mcg/actuation Hfa Aerosol Inhaler
1 - 2 puff INHALATION R Q4HPRN PRN (Reason: shortness of breath/wheezing)
Fanapt 12 mg Tablet
12 mg PO DAILY@1999
Trelegy Ellipta 100-62.5-25 mcg Blister With Device
1 inh INHALATION R DAILY
metformin 500 mg tablet
500 mg PO BID@
Acid Gone Antacid 95-358 mg/15 mL Suspension
15 ml PO DAILYPRN PRN (Reason: acid)
divalproex 250 mg Tablet,Delayed Release (Dr/Ec)
250 mg PO BID@
Rx Instructions:
06/17/2023, take with 1,000 mg for a total of 1,250 mg.
hydroxyzine pamoate 50 mg Capsule
50 mg PO DAILY@1999
divalproex 500 mg Tablet,Delayed Release (Dr/Ec)
1,000 mg PO BID@0800,1999
Rx Instructions:
06/17/2023, take with 250 mg for a total of 1,250 mg.
cyanocobalamin (vitamin B-12) 500 mcg Tablet
500 mcg PO DAILY
olanzapine 20 mg Tablet
20 mg PO DAILY@1999
Apidra SoloStar U-100 Insulin 100 unit/mL Insulin Pen
0 sliding scale dose SC DIRECTED
Rx Instructions:
06/17/2023, if BS 100-150 = 3 units; 151-200 = 6 units; 201-250 = 9 units; 251-300 = 12 units; 301-350 = 14 units; greater than 351 call office.
lisinopril 2.5 MG tablet
2.5 mg PO DAILY
Discharge Orders:
Discharge Patient (As Directed); Ordered 06/20/23
Ordered By: Gabriel Beltran
Discharge Date and Time
Discharge Date/Time: 06/20/23 16:03
--- NOTE | 2023-06-20 13:51 | CM ---
Addendum entered by Vilma Tang RN 06/20/23 15:21:
Notified by Dr Beltran that patient is to remain on O2 2L at discharge. Nurse Nicola called [facility] and confirmed home O2, and JESSICA called Rachel who will transport home, to ask him to bring patient's portable O2 tank- he will bring portable O2 and will
be leaving the facility soon to pick up and delivery driver the patient.
Original Note:
Patient from [facility] with Hx intellectual disability and schizophrenia with Dx acute on chornic hypoxic respiratory failure/lethargic likely from LLL pneumonia. Room air. PT & OT recommend HH.
Spoke with [facility], nurse & Pilar, [employer] [facility] (ph [phone]); they agree to accept the patient back today. Per Pilar, their Tech Rachel will provide transport - to coordinate pick up and delivery driver at main entrance his cell is [phone].
Pilar has no preference of agencies for home PT/OT and agrees to a referral to [facility]. The phone for report [phone], fax [phone].
[facility] is requesting MD provide script of any d/c meds- per Dr Beltran the only med is prednisone- message to [facility] community living coach to please fax to [facility] ([place] [phone], fax [phone]).
Referral to [facility] for PT/OT.
Spoke with patient's sister Laila, who is in [place]; she agrees with d/c today back to [facility] and is asking to speak with patient's nurse- gave her nurse info & phone # to IMU. IMM completed.
Plan return to [facility] today by their transport van, [facility].
--- NOTE | 2023-06-20 15:00 | PTCARENOTE ---
Report called to Ollie at [facility]. [facility] coordinated transport and had their own sales operations assistant picker pt. IV removed. Assisted pt with getting changed. Pt sent to [facility] by transport on 2L NC.
[2023-06-20 15:18] VITALS: BP 115/61
--- NOTE | 2023-06-20 16:17 | VNURNOTE ---
Home Health Liaison met with patient at 1430 to discuss [facility] therapy, visits, schedule and homebound status. Patient is agreeable and understands that visits at home will be 2-3 x per week to assess and teach medical management.
Call to Ollie at [facility] to discuss above. [facility] will contact them for start of care in 1-2 days after discharge from .
[facility] brochure provided with contact information.
[facility] referral completed in Care Port.
== END 2023-06-20 16:03 | disposition home health service (06) | DRG 177 ==
LOC: IMU 17:38
PROVIDERS: Internal Medicine Critical Care Medicine; Registered Nurse; ADMITTING PHYSICIAN Internal Medicine; CONSULT PHYSICIAN Internal Medicine Critical Care Medicine; EMERGENCY PHYSICIAN Emergency Medicine
PROC: 5A09357 Assistance with Respiratory Ventilation, Less than 24 Consecutive Hours, Continuous Positive Airway Pressure (ICD-10-PCS; 2023-06-17)
DX: J69.0 Pneumonitis due to inhalation of food and vomit (principal); J96.21 Acute and chronic respiratory failure with hypoxia; J96.22 Acute and chronic respiratory failure with hypercapnia; J44.1 Chronic obstructive pulmonary disease with (acute) exacerbation; J44.0 Chronic obstructive pulmonary disease with (acute) lower respiratory infection; R62.50 Unspecified lack of expected normal physiological development in childhood; E03.9 Hypothyroidism, unspecified; E11.9 Type 2 diabetes mellitus without complications; F20.9 Schizophrenia, unspecified; I10 Essential (primary) hypertension; I95.9 Hypotension, unspecified; H54.8 Legal blindness, as defined in USA; D63.8 Anemia in other chronic diseases classified elsewhere; E78.5 Hyperlipidemia, unspecified; I48.0 Paroxysmal atrial fibrillation; R26.2 Difficulty in walking, not elsewhere classified; E66.9 Obesity, unspecified; H40.9 Unspecified glaucoma; K21.9 Gastro-esophageal reflux disease without esophagitis; N40.0 Benign prostatic hyperplasia without lower urinary tract symptoms; Z86.16 Personal history of COVID-19; Z87.442 Personal history of urinary calculi; Z79.890 Hormone replacement therapy; Z79.4 Long term (current) use of insulin; Z79.51 Long term (current) use of inhaled steroids; Z86.14 Personal history of Methicillin resistant Staphylococcus aureus infection; Z87.891 Personal history of nicotine dependence; Z87.01 Personal history of pneumonia (recurrent); Z79.84 Long term (current) use of oral hypoglycemic drugs; Z68.29 Body mass index [BMI] 29.0-29.9, adult; Z91.199 Patient's noncompliance with other medical treatment and regimen due to unspecified reason
CPT/HCPCS: 36600; 71046; 71271; 80048; 80053; 82805; 82962; 83036; 83605; 84145; 85025; 87040; 87070; 87449; 87502; 87641; 87811; 87899; 92610; 93005; 94640; 94660; 96360; 96361; 96365; 96367; 96375; 97116; 97163; 97166; 99284; 99285

== ENCOUNTER 2023-07-16 23:43 | Inpatient (IN) | payer MEDICARE, MEDICAID, SELFPAY ==
[2023-07-16 20:33] VITALS: BMI 31.5
[2023-07-16 20:37] VITALS: BP 118/73
[2023-07-16 21:16] LABS: % Basophils 0.5 % (0-2); % Immature Granulocytes 1.2 % (0-0.5); % Lymphocytes 9.6 % (20.5-51.1); % Monocytes 17.1 % (1.7-9.3); % Neutrophils 71.6 % (42.2-75.2); Absolute Immature Granulocytes 0.1 10^3/uL (0-0.05); Absolute Lymphocytes 0.8 10^3/uL (1.2-3.4); Absolute Monocytes 1.3 10^3/uL (0.1-0.6); Absolute Neutrophils 5.6 10^3/uL (1.4-6.5); Hematocrit 35.3 % (39.0-52.0); Hemoglobin 11.8 g/dL (13.0-18.0); Mean Corp Hgb Conc. 33.4 g/dL (33.0-37.0); Mean Corpuscular Volume 95.7 fL (80.0-94.0); Mean Platelet Volume 10.3 fL (7.4-10.4); Nucleated Red Blood Cells % 0 % (-); Platelet Count 202 10^3/uL (130-400); Red Blood Cell Count 3.69 10^6/uL (4.70-6.10); Red Cell Dist. Width 15.5 % (11.5-14.5); White Blood Cell Count 7.8 10^3/uL (4.8-10.8)
[2023-07-16 21:20] LABS: COVID-19 Antigen Negative (Negative)
[2023-07-16 21:26] LABS: ALT (SGPT) 18 U/L (0-50); AST (SGOT) 18 U/L (17-59); Albumin 3.9 g/dl (3.5-5.0); Alkaline Phosphatase 60 U/L (38-126); Blood Urea Nitrogen 24 mg/dl (9-20); Calcium 9.7 mg/dl (8.4-10.2); Carbon Dioxide 31 mmol/L (22-30); Chloride 97 mmol/L (98-107); Estimated Creatinine Clearance 100 ml/min; Glucose 204 mg/dl (70-99); Potassium 4.4 mmol/L (3.5-5.1); Sodium 139 mmol/L (135-145); Total Bilirubin 0.4 mg/dl (0.2-1.3); Total Protein 6.4 g/dl (6.3-8.2); eGFR > 60.00
[2023-07-16 21:32] LABS: NT-proBNP 131 pg/ml
--- NOTE | 2023-07-16 22:10 | ED.GENMED ---
History of Present Illness
General
Chief Complaint: Breathing Problem
Source: patient and prison records
Exam Limitations: none
Time Seen by Provider: 07/16/23 21:43
Travel History
Have you had any contact with someone who has COVID-19?: Unable to Answer
Do you have any symptoms of coronavirus? Fever > 100 degrees, chills, cough, shortness of breath, sore throat, loss of taste or smell, muscle aches, or headache?: Unable to Answer
History of Present Illness
History of Present Illness:
This is a 63 year old male that is brought in by ambulance from [facility] with c/o low Pulse Ox. Told that the patient Pulse ox was 88% on room air. Patient states that he has a cough and is feeling SOB. States that he also has a headache. Denies
any fever, hills, chest pain, abd pain, nausea, vomiting, diarrhea, dizziness, urinary burning
Past History
Past History
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 Limited vision on left eye. )
ED Past Surgical History: None
Social History
Tobacco: Former smoker
Alcohol: None
Drug: None
Personal: Single
Living: prison
Employment: Disabled
Family History
Family History: Other (Reviewed and noncontributory)
Review of Systems
Review of Systems
All Other Systems: ROS reviewed and negative except as documented in HPI and ROS
Constitutional: Reports no symptoms; Denies fever or chills
EENT: Reports no symptoms
Respiratory: Reports cough and trouble breathing
Cardiac: Reports no symptoms; Denies chest pain
ABD/GI: Denies abdominal pain, nausea, vomiting or diarrhea
: Reports no symptoms; Denies dysuria, frequency or urgency
Musculoskeletal: Reports no symptoms
Skin: Reports no symptoms
Neurological: Reports headache; Denies dizzy
Psychiatric: Reports no symptoms
Phy Exam
General Physical Exam
General Presentation: no apparent distress
General age: appears stated age
General Skin: warm and dry
General Habitus: normal
General Mental: alert
General Hydration: dry mucous membranes
ENT Exam
ENT Exam: TM's normal, pharynx normal and neck supple
Cardiovascular Exam
Cardiovascular Exam: regular rate/rhythm, normal peripheral pulses and other (Murmur)
Pulmonary Exam
Pulmonary Exam: no respiratory distress, no rales, chest non tender, no crackles, no rhonchi, no wheezing, decreased breath sounds and other (Dry cough noted)
Gastrointestinal Exam
Gastrointestinal Exam: normal bowel sounds, non tender, soft, no organomegaly, no pulsatile mass and non distended
Musculoskeletal Exam
Musculoskeletal Exam: full ROM and edema (+1 pitting edema of the ankles and lower legs)
Skin Exam
Skin Exam: normal color, warm/dry, no rash and no petechia
Psychiatric Exam
Psychiatric Exam: normal mood/affect
Scores
Heart Failure Risk
Heart Failure Risk Score: Not Applicable
Course
Orders/Labs/Results
Orders:
Orders
07/16/23 20:46
EKG [Electrocardiogram (*1)] Stat
Reason for Study: Shortness of Breath
07/16/23 20:47
EKG- Treatment ONCE
07/16/23 21:03
COVID-19 Antigen Urgent
Source: Nasal Swab
Complete Blood Count/With Diff Urgent
Comprehensive Metabolic Panel Urgent
NT-proBNP Urgent
Troponin I Urgent
Comment: ADD ON
Influenza A+B Rapid Molecular Urgent
TUSHAR Source: Nasal Swab
Specimen Description:
07/16/23 22:09
Ipratropium/Albuterol Sulfate [Duoneb] 3 ml INH R NOW ONE
CR Chest - 2 Views Urgent
Comment:
Reason For Exam: cOUGH, sob
Abnormal Lab Results
07/16/23
21:03
RBC 3.69 L 10^6/uL
(4.70-6.10)
Hgb 11.8 L g/dL
(13.0-18.0)
Hct 35.3 L %
(39.0-52.0)
MCV 95.7 H fL
(80.0-94.0)
MCH 32.0 H pg
(27.0-31.0)
RDW 15.5 H %
(11.5-14.5)
Abs Immat Gran (auto) 0.1 H 10^3/uL
(0-0.05)
Absolute Lymphs (auto) 0.8 L 10^3/uL
(1.2-3.4)
Absolute Monos (auto) 1.3 H 10^3/uL
(0.1-0.6)
Immature Gran % 1.2 H %
(0-0.5)
Lymphocytes % 9.6 L %
(20.5-51.1)
Monocytes % 17.1 H %
(1.7-9.3)
Chloride 97 L mmol/L
(98-107)
Carbon Dioxide 31 H mmol/L
(22-30)
BUN 24 H mg/dl
(9-20)
Glucose 204 H mg/dl
(70-99)
07/16/23 21:03
07/16/23 21:03
H/H slightly low. Anemic, Dehydration. glucose nonfasting. Pro-BNP 131, COVID negative, Influenza Negative.
Vital Signs
Initial and Last Documented VS:
Initial Vital Signs
Temp Pulse Resp BP Pulse Ox
98.3 F 98 22 118/73 89
07/16/23 20:37 07/16/23 20:37 07/16/23 20:37 07/16/23 20:37 07/16/23 20:37
Last Documented Vital Signs
Temp Pulse Resp BP Pulse Ox
98.3 F 90 35 118/73 91
07/16/23 20:37 07/16/23 22:15 07/16/23 22:15 07/16/23 20:37 07/16/23 22:15
MDM/Problems Addressed
Differential Diagnosis Includes:
PNA, COPD exacerbatioin
MDM/Problems Addressed:
This is a 63 year old male that is brought in by ambulance with c/o low pulse ox. Told that his pulse ox was 88% on room air. Patient states that he felt SOB and had a cough.
Will get labs, Chest X-ray and given a Duo neb.
Back into see patient. Explained that he has a right lower lobe Pneumonia. Will admit for IV antibiotics. Patient has remained on 4 liters nasal canula with a 02 sat of 93. Hospitalist notified about admission.
Chronic conditions affecting care: COPD
Acute Exacerbation and/or Progression of Chronic Illness: COPD
*Radiology
Radiology exam reviewed: preliminary read by ED provider (Chest- Right lower lobe Pneumonia)
*Pulse Oximetry
Patient hypoxic: yes
Comment: On 4 liters at this time 91%
*EKG
Interpreted by ED Provider?: Yes
Heart Rate: 96
Rate: normal
Rhythm: sinus
Petros: right axis deviation
Interval: normal interval
QRS Pattern: normal QRS
Ischemia: no ischemia
*Teacher Tutor Interpretation
Rate: normal
Heart Rate: 91
Rhythm: sinus
*Critical Care Note
Total Time (30-74mins, 75-104mins- exclusive of procedures): Not Applicable
ED Attending Note
-
Portions of this chart may have been created with voice recognition software.� Occasional wrong word or��sound alike� substitutions may have occurred due to the inherent limitations of voice recognition software.
Discharge Plan
Departure
Patient Disposition: Admit
Date of Disposition: 07/16/23
Time of Disposition: 22:56
Admit to: Telemetry
Presentation/result/management discussed w/ accepting MD/DO: Hospitalist
Patient with high blood pressure during this ER visit?: No
Condition: Good
Covid-19: Negative COVID-19
Discharge Problem:
Right lower lobe pneumonia
Prescriptions:
No Action
Januvia 100 MG tablet
100 mg PO DAILY
fexofenadine 180 MG tablet
180 mg PO DAILY
levothyroxine 200 MCG tablet
200 mcg PO DAILY AT 0700
acetaminophen [Tylenol] 325 mg Tablet
650 mg PO Q4HPRN PRN (Reason: mild pain)
atorvastatin 20 mg tablet
20 mg PO DAILY
ipratropium-albuterol 0.5 mg-3 mg(2.5 mg base)/3 mL Solution For Nebulization
3 ml INHALATION R Q4HPRN PRN (Reason: SOB/ wheezing)
polyethylene glycol 3350 [Miralax] 17 gram Powder In Packet
17 g PO DAILY PRN (Reason: constipation)
atenolol 25 mg Tablet
25 mg PO DAILY
dorzolamide-timolol 22.3-6.8 mg/mL Drops
1 drp BOTH EYES BID@
albuterol sulfate [Ventolin HFA] 90 mcg/actuation Hfa Aerosol Inhaler
1 - 2 puff INHALATION R Q4HPRN PRN (Reason: shortness of breath/wheezing)
Fanapt 12 mg Tablet
12 mg PO DAILY@1999
Trelegy Ellipta 100-62.5-25 mcg Blister With Device
1 inh INHALATION R DAILY
metformin 500 mg tablet
500 mg PO BID@799,1999
Acid Gone Antacid 95-358 mg/15 mL Suspension
15 ml PO DAILYPRN PRN (Reason: acid)
divalproex 250 mg Tablet,Delayed Release (Dr/Ec)
250 mg PO BID@799,1999
Rx Instructions:
06/17/2023, take with 1,000 mg for a total of 1,250 mg.
hydroxyzine pamoate 50 mg Capsule
50 mg PO DAILY@1999
divalproex 500 mg Tablet,Delayed Release (Dr/Ec)
1,000 mg PO BID@799,1999
Rx Instructions:
06/17/2023, take with 250 mg for a total of 1,250 mg.
cyanocobalamin (vitamin B-12) 500 mcg Tablet
500 mcg PO DAILY
olanzapine 20 mg Tablet
20 mg PO DAILY@1999
Apidra SoloStar U-100 Insulin 100 unit/mL Insulin Pen
0 sliding scale dose SC DIRECTED
Rx Instructions:
06/17/2023, if BS 100-150 = 3 units; 151-200 = 6 units; 201-250 = 9 units; 251-300 = 12 units; 301-350 = 14 units; greater than 351 call office.
lisinopril 2.5 MG tablet
2.5 mg PO DAILY
prednisone 10 mg Tablet
See Rx Instructions .ROUTE .COMPLEX Qty: 30 0RF
Rx Instructions:
Take By Mouth:
40 mg daily x3 days, 30 mg daily x3 days,
20 mg daily x3 days, 10 mg daily x3 days.
Referrals:
UNKNOWN - PT DOES,NOT KNOW [Family Provider] -
Interventions
Interventions:
*Risk Screen - Suicide Last Done: 07/16/23 20:37
*General Assessment Last Done: 07/16/23 20:37
*Neglect/Abuse Screening Last Done: 07/16/23 20:37
Discharge Date and Time
Print Language: DANISH
[2023-07-16] MEDS: DUONEB 3 ML INH (22:30)
[2023-07-16 22:56] VITALS: BP 136/67
[2023-07-16 23:00] VITALS: BP 135/65
[2023-07-16 23:03] LABS: Troponin I < 0.012 ng/ml
--- NOTE | 2023-07-16 23:20 | HPS.HSE ---
Family Physician
-
Family Physician: NOT KNOW UNKNOWN - PT DOES
Chief Complaint
-
Low Pox at NH with cough and SoB
History of Present Illness
HPI;
I could not get any information from the patient as she has HX developmental delay
Information gathered by chart review and speaking with the ER staff.
63F NH Res , [facility] with significant PMHX of DMT2, recurrent PNA, POS MRSA screen Home O2 decedent COPD, chronic hypoxic hypercarbic RF , recent LLL PNA, seen at ER for evaluation of low POx.
At NH:
Hypoxia at MD :Pox as low 88% on RA
Asso; SoB and dry cough
Not feverish. No chills
At ER:
Afebrile, tachypneic, POx as low as 89% on RA, BP 110/80 - 118/73
Labs and CXR:
Nl WCC
CXR suggestive of Rt LLL PNA
Medical History
Past Medical History
Past Medical History: Reports Other
Additional Past Medical History:
COPD on Home 2 L
HX chronic hypoxic hypercarbic RF .
GERD
Hypothyroidism
HTN
schizophrenic
anemia
renal calculi
BPH
polydipsia
epilepsy
DM
legally blind
Glaucoma
COVID
Past Surgical History: Reports Cholecystectomy and Other
Social History
Unable to obtain full social history at this time due to: Other (developmental delay HX )
Tobacco: Former Smoker
Alcohol: None
Living: [facility]
Family History
Family History: Not pertinent
Allergies / Home Medications
Allergies reflects when Allergies were last updated in [facility].
Home Medications with original date entered in [facility]
Allergy/Medication List:
Allergies
Allergy/AdvReac Type Severity Reaction Status Date / Time
No Known Allergies Allergy Verified 06/17/23 01:54
Home Medications
sitagliptin phosphate 100 mg tablet (Januvia) 100 mg PO DAILY Diabetes 10/12/18
fexofenadine 180 mg tablet 180 mg PO DAILY Allergies 07/08/19
levothyroxine 200 mcg tablet 200 mcg PO DAILY AT 0700 Thyroid 07/08/19
acetaminophen 325 mg tablet (Tylenol) 650 mg PO Q4HPRN PRN mild pain 04/24/23
atorvastatin 20 mg tablet 20 mg PO DAILY High Cholesterol 04/24/23
ipratropium 0.5 mg-albuterol 3 mg (2.5 mg base)/3 mL nebulization soln 3 ml inhalation R Q4HPRN PRN SOB/ wheezing 04/24/23
polyethylene glycol 3350 17 gram oral powder packet (Miralax) 17 g PO DAILY PRN constipation 04/25/23
albuterol sulfate 90 mcg/actuation aerosol inhaler (Ventolin HFA) 1 - 2 puff inhalation R Q4HPRN PRN shortness of breath/wheezing 06/17/23
aluminum hydrox-magnesium carb 95 mg-358 mg/15 mL oral suspension (Acid Gone Antacid) 15 ml PO DAILYPRN PRN acid 06/17/23
atenolol 25 mg tablet 25 mg PO DAILY Blood Pressure 06/17/23
cyanocobalamin (vitamin B-12) 500 mcg tablet 500 mcg PO DAILY Supplement 06/17/23
divalproex 250 mg tablet,delayed release 250 mg PO BID@08 mental health 06/17/23
divalproex 500 mg tablet,delayed release 1,000 mg PO BID@08 mental health 06/17/23
dorzolamide 22.3 mg-timolol 6.8 mg/mL eye drops 1 drp BOTH EYES BID@ Eye Condition 06/17/23
fluticasone fur. 100 mcg-umeclid 62.5 mcg-vilant 25 mcg inhalat.powder (Trelegy Ellipta) 1 inh inhalation R DAILY Lung/Breathing Issues 06/17/23
hydroxyzine pamoate 50 mg capsule 50 mg PO DAILY@1999 Mental Health/Anxiety 06/17/23
iloperidone 12 mg tablet (Fanapt) 12 mg PO DAILY@1999 mental health 06/17/23
insulin glulisine U-100 100 unit/mL subcutaneous pen (Apidra SoloStar U-100 Insulin) 0 sliding scale dose SC DIRECTED Diabetes 06/17/23
lisinopril 2.5 mg tablet 2.5 mg PO DAILY Blood pressure 06/17/23
metformin 500 mg tablet 500 mg PO BID@0800,1999 Diabetes 06/17/23
olanzapine 20 mg tablet 20 mg PO DAILY@1999 mental health 06/17/23
prednisone 10 mg tablet See Rx Instructions .Route .COMPLEX #30 tabs 06/20/23
Review of Systems
-
Constitutional: Reports No Symptoms
EENT: Reports No Symptoms
Respiratory: Reports See HPI
Cardiac: Reports No Symptoms
Abdomen/GI: Reports No Symptoms
: Reports No Symptoms
Musculoskeletal: Reports No Symptoms
Skin: Reports No Symptoms
Neurological: Reports No Symptoms
Endocrine: Reports No Symptoms
Hematologic/Lymphatic: Reports No Symptoms
Psych: Reports No Symptoms
Physical Exam
Vital Signs
Vital Signs
Temp Pulse Resp BP Pulse Ox
98.3 F 90 35 118/73 91
07/16/23 20:37 07/16/23 22:15 07/16/23 22:15 07/16/23 20:37 07/16/23 22:15
Physical Exam
General: Respiratory Distress and Other (tachypnic )
HEENT: NormoCephalic, Anicteric and Moist mucous membranes
Respiratory: Wheezes (mild and mostly expiratory in both lungs )
Cardiac: S1/S2 and Regular Rhythm
GI: Soft, Non Tender and Non Distended
Genito-urinary: Deferred by me
Musculoskeletal: No Edema
Skin: Warm and Dry
Neuro: Awake and Alert
Psych: Calm
Laboratory Results
-
07/16/23 21:03
07/16/23 21:03
Laboratory Results
Total Bilirubin 0.4 mg/dl (0.2-1.3) 07/16/23 21:03
AST 18 U/L (17-59) 07/16/23 21:03
ALT 18 U/L (0-50) 07/16/23 21:03
Alkaline Phosphatase 60 U/L (38-126) 07/16/23 21:03
Troponin I Cancelled 07/16/23 22:10
Data Reviewed
-
Diagnostic Radiology: Report Reviewed by me
Lab Data: Labs Reviewed by me
Old Records: Reviewed
Impression/Plan
-
Reviewed VS: Afebrile , RR 35 POx 89- 91 HR 90 BP 110/80 - 118/73
Data
nl WCC
Hgb 11.8 - bl hi 9s to low 10s
Cl 97 CO2 31 BUN 24 Cr 0. 8
BG 205
Pending TPNI
pro BNP 130
Pending PCT
NEG Covid
Last hospitalist admission: 06/16- 06/20/23
DC DXs; Acute on chronic hypoxic hypercarbic respiratory failure, COPD exacerbation, Suspect left lower lobe aspiration pneumonia
ASSESSMENT & PLAN
Rt LL PNA : Aspiration vs HAP
HX recurrent PNA presumed HAP - Lt sided PNA on last admission
Prior HX POS MRSA screen
Associated acute on chr hypoxic RF
- check PCT
- BCx
- IV vancomycin and Zosyn in place of IV LVQ
- ST evaluate for aspiration
- Pul consult
Mild COPD flare
HX COPD - Home O2 dependent
Chronic elevation of total serum CO2
HX chronic hypoxic hypercarbic respiratory failure
- cont. DuoNebs
- IVDecadron 4mg q12h
- on Trelegy at home
- cont O2 to keep Ox just above 93 %- avoid over correction of POx
- ABG if any acute AMS or become lethargic
DMT2 Diabetes type 2
- hold metformin,Januvia
- add ISS low
HX hypothyroidism
- Conct. LT4
Schizophrenia
- Depakote, hydroxyzine, Fanapt, olanzapine continued
Essential HTN
- cont. atenolol
- hold lisinopril as BP is soft
Hyperlipidemia
- cont. Statin
HX Prx Afib
- On atenolol
- Not on AC
HX Developmental delay: Premature baby-2lbs and 9 ounces
Ambulatory dysfunction
-PT OT
HX Glaucoma: Legally blind with decreased vision in the left eye
- eye drops continued
Ex-smoker
DVT Px: LMWH
Code: Full
IMU
[2023-07-17] VITALS (17 sets, daily range): BP systolic 104–143; BP diastolic 60–85; PULSE 92; O2SAT 95; BMI 30.2
[2023-07-17] MEDS: LEVAQUIN 100 IV (00:14)
[2023-07-17 01:01] LABS: Procalcitonin 0.05 ng/ml (0.0-0.25)
[2023-07-17] MEDS: DECADRON 4 MG IV ×3 (03:32→19:38)
[2023-07-17] MEDS: VANCOCIN 540 MG IV (03:44)
[2023-07-17] MEDS: TYLENOL 650 MG PO (03:49)
--- NOTE | 2023-07-17 05:41 | EDRN ---
Pt is an IMU admission. Pt given ICU room. This RN attempted to call report to ICU and was told ICU nurse contacted house provider to see if pt can be downgraded. Will call this RN back.
[2023-07-17 05:44] LABS: % Basophils 0.3 % (0-2); % Eosinophils 0.8 % (0-6); % Lymphocytes 7.2 % (20.5-51.1); % Monocytes 16.3 % (1.7-9.3); % Neutrophils 74.4 % (42.2-75.2); Absolute Eosinophils 0.1 10^3/uL (0-0.7); Absolute Immature Granulocytes 0.1 10^3/uL (0-0.05); Absolute Lymphocytes 0.7 10^3/uL (1.2-3.4); Absolute Monocytes 1.5 10^3/uL (0.1-0.6); Absolute Neutrophils 6.9 10^3/uL (1.4-6.5); Hemoglobin 11.4 g/dL (13.0-18.0); Mean Corp Hgb Conc. 33.5 g/dL (33.0-37.0); Mean Corpuscular Hgb 32.4 pg (27.0-31.0); Mean Corpuscular Volume 96.6 fL (80.0-94.0); Mean Platelet Volume 9.9 fL (7.4-10.4); Nucleated Red Blood Cells % 0 % (-); Platelet Count 177 10^3/uL (130-400); Red Blood Cell Count 3.52 10^6/uL (4.70-6.10); Red Cell Dist. Width 15.6 % (11.5-14.5); White Blood Cell Count 9.2 10^3/uL (4.8-10.8)
--- NOTE | 2023-07-17 05:51 | EDRN ---
Report given to Valerie in ICU
[2023-07-17 05:55] LABS: ALT (SGPT) 16 U/L (0-50); AST (SGOT) 17 U/L (17-59); Albumin 3.5 g/dl (3.5-5.0); Alkaline Phosphatase 56 U/L (38-126); Blood Urea Nitrogen 17 mg/dl (9-20); Calcium 8.9 mg/dl (8.4-10.2); Carbon Dioxide 31 mmol/L (22-30); Chloride 101 mmol/L (98-107); Estimated Creatinine Clearance > 125 ml/min; Glucose 167 mg/dl (70-99); Potassium 4.4 mmol/L (3.5-5.1); Sodium 136 mmol/L (135-145); Total Bilirubin 0.6 mg/dl (0.2-1.3); Total Protein 5.9 g/dl (6.3-8.2); eGFR > 60.00
[2023-07-17] MEDS: ZOSYN 50 IV ×4 (06:32→23:15)
[2023-07-17] MEDS: SPIRIVA RESPIMAT 2.5 MCG 2 PUFF INH (07:14)
[2023-07-17] MEDS: VENTOLIN NEBULES 2.5 MG INH ×4 (07:14→19:29)
[2023-07-17] MEDS: SYMBICORT 80/4.5 MCG INHALER 2 PUFF INH ×2 (07:14→19:29)
--- NOTE | 2023-07-17 07:35 | CON.PUL ---
Consultation
Consultation Request
Date/Time Consultation Requested: 07-17-23
Date/Time Consultation Performed: 07-17-23
Requesting Provider: Hospitalist regina
Performing Provider: Dr Raman
Reason for Consultation: dyspnea
Medical History
-
Chief Complaint: dyspnea
History of Present Illness:
Mr Oren Velazquez is a 63/M adm 07-15 from [facility] with reported dyspnea and cough.
H/o developmental delay, limited historian. COPD on O2, chronic hypoxia/hypercarbia, T2DM, former smoker, NHR.
Adm to IMU. At time of visit this morning, sitting in chair, able to speak in almost full sentences, reports cough with difficulty expectorating
Suspected R basilar infiltrate on frontal view CXR, not seen on lateral view
Negative PCT
L basilar infiltrate on CXR and CT June 2023, adm [facility], negative PCT, received ceftriaxone and azithromycin for 2 d and atbs were d/c
Past Medical History
Past Medical History: COPD (O2 dependent), NIDDM and Other (developmental delay, recurrent pneumonia, positive MRSA)
Social History
Tobacco: Former Smoker
Alcohol: None
Drug: None
Personal: Single
Living: Senior Living
Employment: Disabled
Family History
Family History: Unable to Obtain
Allergies / Home Medications
Allergies
Allergy/AdvReac Type Severity Reaction Status Date / Time
No Known Allergies Allergy Verified 07/17/23 02:52
Home Medications
�Medication �Instructions �Recorded �Confirmed �Last Taken �Type
sitagliptin phosphate 100 mg 100 mg PO DAILY Diabetes 10/12/18 07/17/23 04/23/23 History
tablet (Januvia)
fexofenadine 180 mg tablet 180 mg PO DAILY Allergies 07/08/19 07/17/23 04/23/23 History
levothyroxine 200 mcg tablet 200 mcg PO DAILY AT 0700 Thyroid 07/08/19 07/17/23 04/23/23 History
acetaminophen 325 mg tablet 650 mg PO Q4HPRN PRN mild pain 04/24/23 07/17/23 04/11/23 History
(Tylenol)
atorvastatin 20 mg tablet 20 mg PO DAILY High Cholesterol 04/24/23 07/17/23 04/23/23 History
ipratropium 0.5 mg-albuterol 3 mg 3 ml inhalation R Q4HPRN PRN SOB/ 04/24/23 07/17/23 Unknown History
(2.5 mg base)/3 mL nebulization wheezing
soln
polyethylene glycol 3350 17 gram 17 g PO DAILY PRN constipation 04/25/23 07/17/23 Unknown History
oral powder packet (Miralax)
atenolol 25 mg tablet 25 mg PO DAILY Blood Pressure 06/17/23 07/17/23 Unknown History
cyanocobalamin (vitamin B-12) 500 500 mcg PO DAILY Supplement 06/17/23 07/17/23 Unknown History
mcg tablet
divalproex 250 mg tablet,delayed 250 mg PO BID@0800,1999 mental 06/17/23 07/17/23 Unknown History
release health
divalproex 500 mg tablet,delayed 1,000 mg PO BID@0800,1999 mental 06/17/23 07/17/23 Unknown History
release health
hydroxyzine pamoate 50 mg capsule 50 mg PO DAILY@1999 Mental 06/17/23 07/17/23 Unknown History
Health/Anxiety
iloperidone 12 mg tablet (Fanapt) 12 mg PO DAILY@1999 mental health 06/17/23 07/17/23 Unknown History
lisinopril 2.5 mg tablet 2.5 mg PO DAILY Blood pressure 06/17/23 07/17/23 Unknown History
metformin 500 mg tablet 500 mg PO BID@0800,1999 Diabetes 06/17/23 07/17/23 Unknown History
olanzapine 20 mg tablet 20 mg PO DAILY@[address] [facility] health 06/17/23 07/17/23 Unknown History
Review of Systems
-
History Source: Patient and Other (limited historian)
All other systems: Negative unless noted
Constitutional: Fatigue
Respiratory: Cough
Neuro: Weakness
Vitals / Labs / Diagnostic Testing
Vital Signs
Temp Pulse Resp BP Pulse Ox
98.3 F 91 18 112/61 94
07/17/23 07:20 07/17/23 07:18 07/17/23 07:18 07/17/23 04:00 07/17/23 07:18
Lab Data
07/17/23 05:30
07/17/23 05:30
Microbiology
07/16/23 21:03 Nasal Swab Influenza Types A & B (CELINA) - Final
Negative for Influenza A & B, NAAT
Negative results must be combined with clinical observations
and patient history.
Nucleic Acid Amplification test (NAAT)performed on the
[employer] platform.
Diagnostic Testing:
Physical Exam
-
HEENT: Normocephalic and Moist Mucous Membranes
Cardiovascular: Regular Rhythm, Murmur (n) and Peripheral Edema (n)
Respiratory: Rhonchi and Non-Labored Respirations
GI: Soft, Non Distended and Non Tender
Neurology: Awake, Oriented and No Motor Deficits
Skin: Warm
General: Respiratory Distress (n)
Assessment
-
Assessment:
Mr Oren Velazquez is a 63/M adm 07-15 from [place] with reported dyspnea and cough. H/o developmental delay, COPD on O2, chronic hypoxia/hypercarbia, T2DM, former smoker, NHR. Adm to IMU. At time of visit, sitting in chair, able to speak in almost full
sentences, reports cough with difficulty expectorating
Impression:
Suspected R basilar infiltrate on frontal view
Negative PCT
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
COPD on Home 2 L
Chronic hypoxic hypercarbic RF
L basilar infiltrate on CXR and CT June 2023, adm [facility], negative PCT, received ceftriaxone and azithromycin for 2 d and atbs were d/c
Mild
GERD
Hypothyroidism
HTN
Schizophrenia
Anemia
Nephrolithiasis
BPH
Polydipsia
Sz
T2DM
Legally blind
Glaucoma
COVID
Cholecystectomy
Former Smoker
NHR
Disabled
Plan:
Continue O2 protocol
Already on home O2, known h/o COPD/hypoxemia/hypercarbia
Noted h/o similar presentation but with L basilar infiltrate, negative PCT, received ceftriaxone and azithromycin for 2 d and atbs were d/c
Had negative outpatient VSE in 06-06, mild OP dysphagia, trace penetration, rec regular solids and thin liquids then
D/w Speech Therapist 07-16, no indication to repeat test, can take regular solids and mildly thick liquids
Flu, COVID negative
Blood cx pending
No sputum cx collected this or previous adm
Negative PCT
Suspected R basilar infiltrate but not obvious on lateral view
Rec to d/c atbs and observe, agree with adm svce
Can transfer to [facility] today, pulm to follow
No critical care time charged today
[2023-07-17] MEDS: DEPAKOTE (12 HR RELEASE) 250 MG PO ×2 (07:36→19:38)
[2023-07-17] MEDS: CLARITIN 10 MG PO (07:36)
[2023-07-17] MEDS: VITAMIN B-12 500 MCG PO (07:36)
[2023-07-17] MEDS: SYNTHROID 200 MCG PO (07:36)
[2023-07-17] MEDS: JANUVIA 100 MG PO (07:36)
[2023-07-17] MEDS: DEPAKOTE (12 HR RELEASE) 1000 MG PO ×2 (07:36→19:38)
[2023-07-17] MEDS: LIPITOR 20 MG PO (07:36)
[2023-07-17] MEDS: COSOPT EYE DROPS 1 DROP BOTH EYES ×2 (07:37→19:42)
--- NOTE | 2023-07-17 07:50 | PTCARENOTE ---
pt aaox2 forgetful about time. pt slow mentation. states no pain. no sob. nc4l. breath sounds diminished. wet cough non productive.
--- NOTE | 2023-07-17 08:23 | W.PN.HOSP.TC ---
Today's Communication/Plan
-
Will keep patient n.p.o. until seen by speech therapy has had strong suspicion for recurrent aspiration event
With procalcitonin within normal no strong criteria for continuation of antibiotics although with aspiration event and history of MRSA would continue for now
Would favor discontinuation of IV steroids if pulmonary agrees
Assessment / Plan
Assessment / Plan
63F NH Res , [facility] with significant PMHX of DMT2, recurrent PNA, POS MRSA screen Home O2 decedent COPD, chronic hypoxic hypercarbic RF , recent LLL PNA suspected at that time also to be with aspiration component., seen at ER for evaluation of
low POx./Patient is a poor historian due to underlying dementia. [facility] on room air/after transfer to IMU no longer obviously dyspneic or tachypneic.
Past medical history also includes a history of COPD on home oxygen, hypothyroidism schizophrenia underlying epilepsy he is legally blind and has glaucoma
ASSESSMENT & PLAN
Rt LL PNA : Aspiration vs HAP
HX recurrent PNA presumed HAP - Lt sided PNA on last admission
Prior HX POS MRSA screen
Associated acute on chr hypoxic RF
- check PCT /was within normal limits
- BCx
- IV vancomycin and Zosyn in place of IV LVQ /would favor continuation given probable aspiration component
- ST evaluate for aspiration
- Pul consult
Mild COPD flare
HX COPD - Home O2 dependent
Chronic elevation of total serum CO2
HX chronic hypoxic hypercarbic respiratory failure
- cont. DuoNebs
- IVDecadron 4mg q12h /on auscultation really does not have a lot of bronchospasm if any/may may be able to discontinue will await pulmonary input
- on Trelegy at home
- cont O2 to keep Ox just above 93 %- avoid over correction of POx
- ABG if any acute AMS or become lethargic
DMT2 Diabetes type 2
- hold metformin,Januvia
- add ISS low
HX hypothyroidism
- Conct. LT4
Schizophrenia
- Depakote, hydroxyzine, Fanapt, olanzapine continued
Essential HTN
- cont. atenolol
- hold lisinopril as BP is soft
Hyperlipidemia
- cont. Statin
HX Prx Afib
- On atenolol
- Not on AC
HX Developmental delay: Premature baby-2lbs and 9 ounces
Ambulatory dysfunction
-PT OT
HX Glaucoma: Legally blind with decreased vision in the left eye
- eye drops continued
Ex-smoker
DVT Px: LMWH
Code: Full
IMU
Anticipated Discharge: 24 - 48 hours
Subjective/Interval History
-
Date of Service: July 17, 2023
Patient presently with no distress on 2 L nasal oxygen does not look overly dyspneic wants to eat. Denies choking on food when he eats not the best historian due to underlying dementia.
Objective Data
-
Labs:
Laboratory Results
07/16/23 07/17/23
21:03 05:30
WBC 7.8 9.2
Hgb 11.8 L 11.4 L
Hct 35.3 L 34.0 L
Plt Count 202 177
Sodium 139 136
Potassium 4.4 4.4
Chloride 97 L 101
Carbon Dioxide 31 H 31 H
BUN 24 H 17
Creatinine 0.8 0.6 L
Glucose 204 H 167 H
Calcium 9.7 8.9
Total Bilirubin 0.4 0.6
AST 18 17
ALT 18 16
Alkaline Phosphatase 60 56
Vital Signs:
Vital Signs
Temp Pulse Resp BP Pulse Ox
98.3 F 93 26 112/61 93
07/17/23 07:20 07/17/23 07:45 07/17/23 07:45 07/17/23 04:00 07/17/23 07:50
I&O
07/16/23 07/17/23 07/18/23
06:59 06:59 06:59
Output Total 200 / 200
Balance -200 / -200
Review of Systems
-
Unable to obtain full review of systems at this time due to: Dementia
History Source: Patient
Constitutional: Denies Fever
Respiratory: Reports Trouble Breathing (Presented with with dyspnea and hypoxia)
Cardiac: Reports No Symptoms
Genitourinary: Reports No Symptoms
Skin: Reports No Symptoms
Physical Exam
-
General: Well Developed
HEENT: Normocephalic
Respiratory: Rhonchi
Cardiac: Regular Rhythm
Musculoskeletal: No Clubbing
Neuro: Awake
Psych: Calm, Confused and Apparent Dementia
--- NOTE | 2023-07-17 09:10 | PTOTSP ---
Speech Language Pathology
Pt seen for clinical bedside swallow evaluation. Recent OP VSE completed 06/07/23. Findings: Mild oropharyngeal dysphagia. Trace deep penetration x1 with thin liquids via cup without cough response. Recommendations were for regular solids/thin
liquids.
P.O. trials of puree, regular solids, thin liquids, and mildly thick liquids provided. Adequate mastication, bolus formation, and A-P transit noted with no oral residue. Wet vocal quality when thin liquid via cup utilized as a liquid wash with
regular solids still in oral cavity. Cued cough cleared this. Slight cough intermittently noted post mildly thick liquids.
Pt has a chronic cough per custodial staff. Pt had recent VSE without overt aspiration, although at risk with laryngeal penetration to the vocal folds x1. This is pt's 3rd admission for PNA since April, so question whether related to aspiration
despite lack of aspiration noted on VSE. Will trial modified diet at this time. Repeat VSE not indicated at this time as recently completed.
Recommend:
(1) Regular solids/mildly thick liquids (nectar-thick)
(2) Aspiration precautions: sit upright, single sips, slow rate
(3) Meds as tolerated
(4) CARDIAC SPECIALIST to continue to follow
--- NOTE | 2023-07-17 09:10 | PHA.VAN.IN ---
Assessment
- Assessment
Renal Function: Appears similar to baseline
Concomitant Antimicrobials: piperacillin/tazobactam
- Previous Dosing Experience
Previous Regimen: Vanc 1500mg Q12H
Date of Regimen: Apr 2023
Provided Trough of: 12.4
Provided AUC of: 475
Patient's SCR is: Similar to previous dosing experience
Patient's weight is: Similar to previous dosing experience
Regimen provided the following additional patient-specific PK:
Extrapolated Cmax (mcg/mL): 30.5 [Peak level was drawn: Appropriately (drawn ~1.3H after end of previous infusion)]
Extrapolated Cmin (mcg/mL): 11.6 (Trough Drawn: Appropriately)
Levels were drawn: At steady state (levels drawn after 3rd maintenance dose)
Calculated AUC (mcg*h/mL): 475
Calculated ke: 0.0917
Calculated half life (H): 7.6
Calculated Vd (L): 69 (~0.75 L/kg)
Calculated Vanc CL (ml/min): 105
AUC Dosing Plan
- Empiric Dosing
Initial / Loading Dose: 2000mg - 07/16 03:44
Maintenance Regimen: Vanc 1500mg Q12H based on prior dosing experience - start at 1800
- Monitoring
No levels ordered at this time: consider levels in next few days
Pharmacokinetics Vancomycin I
- -
Patient Age: 63
Patient Sex: Male
Vancomycin Day #: 1
Indication: Pulmonary/Respiratory
Requesting Provider: Lg Gill
Pertinent Antimicrobial Allergies:
NKDA
Height / Weight:
Height 5 ft 7 in
Actual Weight 87.4 kg
Pertinent Past Medical History: BMI ~30, DM 2
- Vital Signs / Lab Results
Temp Pulse Resp BP Pulse Ox
98.3 F 93 26 112/61 93
07/17/23 07:20 07/17/23 07:45 07/17/23 07:45 07/17/23 04:00 07/17/23 07:50
Lab Results - Hematology
07/16/23 07/17/23
21:03 05:30
WBC 7.8 9.2
Lab Results - Chemistry
07/16/23 07/17/23
21:03 05:30
BUN 24 H 17
Creatinine 0.8 0.6 L
Estimated Creat Clear 100 > 125
Albumin 3.9 3.5
Microbiology Results
07/16/23 21:03 Influenza Types A & B (CELINA) - Final
Nasal Swab Negative for Influenza A & B, NAAT
Negative results must be combined with clinical observations
and patient history.
Nucleic Acid Amplification test (NAAT)performed on the
[employer] platform.
--- NOTE | 2023-07-17 09:20 | VNURNOTE ---
Patient is current with [facility] since 06/25 w/PT only at [facility]. Will monitor progress and plan at discharge.
[2023-07-17] MEDS: NOVOLOG FLEXPEN-LOW RESISTANCE SC (09:35)
--- NOTE | 2023-07-17 11:41 | CM ---
CM met with patient, reviewed chart.
CM spoke with [facility] ([phone]), reports patient does not use any assistive device to ambulate. [facility] with [facility]. Patients PCP Dr. Rubio Weir, pharmacy [facility]. CM inquired if patient can
return on a thick liquids diet, nurse [facility] will check with Director and contact CM with answer. Per PT note, no skilled PT need. CM will continue to follow for discharge planning needs.
Plan; return to [facility], [facility].
[2023-07-17 11:47] LABS: Glucose - Point of Care 210 mg/dl (70-99)
[2023-07-17] MEDS: NOVOLOG FLEXPEN-LOW RESISTANCE 2 UNITS SC (13:24)
[2023-07-17 16:57] LABS: Glucose - Point of Care 277 mg/dl (70-99)
[2023-07-17] MEDS: NOVOLOG FLEXPEN-LOW RESISTANCE 3 UNITS SC (17:36)
[2023-07-17] MEDS: LOVENOX 40 MG SC (17:36)
[2023-07-17] MEDS: VANCOCIN 300 MG IV (18:10)
[2023-07-17] MEDS: VANCOCIN 300 ML IV (18:10)
[2023-07-17] MEDS: ATARAX 50 MG PO (19:38)
[2023-07-17] MEDS: ZYPREXA 20 MG PO (19:38)
[2023-07-17 19:44] LABS: Glucose - Point of Care 391 mg/dl (70-99)
[2023-07-17] MEDS: NOVOLOG FLEXPEN 10 UNITS SC ×2 (19:52→22:34)
--- NOTE | 2023-07-17 20:03 | PTCARENOTE ---
pt received from previous rn- oob to chair, aox2 disoriented to time, able to make all needs known. all safety precautions in place. call mullins within reach. nsr to st on monitor. 2LNC with nonproductive cough. pt with no complaints at this time.
blood sugar 391- promise omalley crosscutter notified- insulin given as per order.
[2023-07-17 22:29] LABS: Glucose - Point of Care 304 mg/dl (70-99)
--- NOTE | 2023-07-17 23:21 | PTCARENOTE ---
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 pt oob and ambulating in room at this time. no change in assessment.
[2023-07-18] VITALS (8 sets, daily range): BP systolic 122–133; BP diastolic 62–87; BMI 30.9
[2023-07-18 00:30] LABS: Glucose - Point of Care 231 mg/dl (70-99)
[2023-07-18 04:30] LABS: % Basophils 0.2 % (0-2); % Immature Granulocytes 1.1 % (0-0.5); % Lymphocytes 7.3 % (20.5-51.1); % Monocytes 10.4 % (1.7-9.3); Absolute Immature Granulocytes 0.1 10^3/uL (0-0.05); Absolute Lymphocytes 0.6 10^3/uL (1.2-3.4); Absolute Monocytes 0.9 10^3/uL (0.1-0.6); Absolute Neutrophils 6.9 10^3/uL (1.4-6.5); Hemoglobin 10.2 g/dL (13.0-18.0); Mean Corp Hgb Conc. 32.9 g/dL (33.0-37.0); Mean Corpuscular Volume 97.2 fL (80.0-94.0); Mean Platelet Volume 10.7 fL (7.4-10.4); Nucleated Red Blood Cells % 0 % (-); Platelet Count 158 10^3/uL (130-400); Red Blood Cell Count 3.19 10^6/uL (4.70-6.10); Red Cell Dist. Width 15.2 % (11.5-14.5); White Blood Cell Count 8.5 10^3/uL (4.8-10.8)
[2023-07-18 04:56] LABS: ALT (SGPT) 13 U/L (0-50); AST (SGOT) 15 U/L (17-59); Albumin 3.3 g/dl (3.5-5.0); Alkaline Phosphatase 51 U/L (38-126); Blood Urea Nitrogen 18 mg/dl (9-20); Carbon Dioxide 30 mmol/L (22-30); Chloride 98 mmol/L (98-107); Estimated Creatinine Clearance > 125 ml/min; Glucose 189 mg/dl (70-99); Sodium 134 mmol/L (135-145); Total Bilirubin 0.6 mg/dl (0.2-1.3); Total Protein 5.8 g/dl (6.3-8.2); eGFR > 60.00
[2023-07-18] MEDS: SYNTHROID 200 MCG PO (05:15)
[2023-07-18] MEDS: VANCOCIN 300 ML IV (05:15)
[2023-07-18] MEDS: ZOSYN 50 IV (05:15)
[2023-07-18] MEDS: VANCOCIN 300 MG IV (05:15)
[2023-07-18] MEDS: SYMBICORT 80/4.5 MCG INHALER 2 PUFF INH ×2 (07:16→19:19)
[2023-07-18] MEDS: SPIRIVA RESPIMAT 2.5 MCG 2 PUFF INH (07:16)
[2023-07-18] MEDS: VENTOLIN NEBULES 2.5 MG INH ×4 (07:16→19:19)
--- NOTE | 2023-07-18 07:39 | W.PN.HOSP.TC ---
Today's Communication/Plan
-
At this time would at the very least discontinue any IV antibiotics and IV steroids as on auscultation is very little bronchospasm
Suspect aspiration component to his presentation
Placed on course of Augmentin
Transfer to general medical surgery see if we can titrate off oxygen
Assessment / Plan
Assessment / Plan
63F NH Res , [facility] with significant PMHX of DMT2, recurrent PNA, POS MRSA screen Home O2 decedent COPD, chronic hypoxic hypercarbic RF , recent LLL PNA suspected at that time also to be with aspiration component., seen at ER for evaluation of
low POx./Patient is a poor historian due to underlying dementia. He presented at the correction hypoxic at 88% on room air/after transfer to IMU no longer obviously dyspneic or tachypneic.
Past medical history also includes a history of COPD on home oxygen, hypothyroidism schizophrenia underlying epilepsy he is legally blind and has glaucoma
ASSESSMENT & PLAN
Rt LL PNA : Aspiration vs HAP /suspected from with recurrent pneumonias x 3 since April
HX recurrent PNA presumed HAP - Lt sided PNA on last admission
Prior HX POS MRSA screen
Associated acute on chr hypoxic RF
- check PCT /was within normal limits
- BCx
- IV vancomycin and Zosyn in place of IV LVQ /would favor discontinuation given probable aspiration component
- ST evaluate for aspiration
- Pul consult
Mild COPD flare
HX COPD - Home O2 dependent
Chronic elevation of total serum CO2
HX chronic hypoxic hypercarbic respiratory failure
- cont. DuoNebs
- IVDecadron 4mg q12h /on auscultation really does not have a lot of bronchospasm if any/may may be able to discontinue will await pulmonary input
- on Trelegy at home
- cont O2 to keep Ox just above 93 %- avoid over correction of POx
- ABG if any acute AMS or become lethargic
DMT2 Diabetes type 2
- hold metformin,Januvia
- add ISS low
HX hypothyroidism
- Conct. LT4
Schizophrenia
- Depakote, hydroxyzine, Fanapt, olanzapine continued
Essential HTN
- cont. atenolol
- hold lisinopril as BP is soft
Hyperlipidemia
- cont. Statin
HX Prx Afib
- On atenolol
- Not on AC
HX Developmental delay: Premature baby-2lbs and 9 ounces
Ambulatory dysfunction
-PT OT
HX Glaucoma: Legally blind with decreased vision in the left eye
- eye drops continued
Ex-smoker
DVT Px: LMWH
Code: Full
IMU
Anticipated Discharge: Within 24 hours
Subjective/Interval History
-
Date of Service: July 18, 2023
No apparent respiratory distress remains on oxygen constantly asking about eating
Objective Data
-
Labs:
Laboratory Results
07/18/23
04:10
WBC 8.5
Hgb 10.2 L
Hct 31.0 L
Plt Count 158
Sodium 134 L
Potassium 4.0
Chloride 98
Carbon Dioxide 30
BUN 18
Creatinine 0.6 L
Glucose 189 H
Calcium 9.0
Total Bilirubin 0.6
AST 15 L
ALT 13
Alkaline Phosphatase 51
Vital Signs:
Vital Signs
Temp Pulse Resp BP Pulse Ox
98.9 F 72 14 133/86 96
07/18/23 04:35 07/18/23 07:16 07/18/23 07:16 07/18/23 04:00 07/18/23 07:16
I&O
07/17/23 07/18/23 07/19/23
06:59 06:59 06:59
Intake Total 1750 / 1750
Output Total 1300 / 1300
Balance 450 / 450
Review of Systems
-
Unable to obtain full review of systems at this time due to: Dementia
History Source: Patient
Constitutional: Reports No Symptoms
EENT: Reports No Symptoms Reported
Respiratory: Reports Cough
Physical Exam
-
General: Well Developed
HEENT: Normocephalic
Respiratory: Decreased Breath Sounds
Cardiac: Regular Rhythm
GI: Soft and Nontender
Psych: Calm, Confused and Apparent Dementia
Data Reviewed
-
Total Time Spent with Patient (in minutes): 56
Labs: Labs Reviewed by me (White count remained stable 8.5 hemoglobin 10.2 slight drop/BNP yesterday was only 131)
--- NOTE | 2023-07-18 07:43 | W.PN.PUL3 ---
Today's Communication / Plan
-
O2
Observe off atb and CS
BDs
Transfer to [facility]
Assessment
-
Assessment:
Mr Oren Velazquez is a 63/M [place] 07-15 [place] with reported dyspnea and cough. H/o developmental delay, COPD on O2, chronic hypoxia/hypercarbia, T2DM, former smoker, NHR. Adm to IMU. At time of visit, sitting in chair, able to speak in almost full
sentences, reports cough with difficulty expectorating
Impression:
Suspected R basilar infiltrate on frontal view
Negative PCT
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
COPD on home 2 L
Chronic hypoxic hypercarbic RF
L basilar infiltrate on CXR and CT June 2023, adm DH, negative PCT, received ceftriaxone and azithromycin for 2 d and atbs were d/c
Mild
GERD
Hypothyroidism
HTN
Schizophrenia
Anemia
Nephrolithiasis
BPH
Polydipsia
Sz
T2DM
Legally blind
Glaucoma
COVID
Cholecystectomy
Former Smoker
NHR
Disabled
Plan:
Continue O2 protocol
Currently on O2 NC 3L, POx 96%, resp arevalo comfortable
Remains hemodyn stable, single fever event on 07-16 noted
Already on home O2, known h/o COPD/hypoxemia/hypercarbia. Does not recall baseline O2 requirement, but reportedly on 2L
CXR with suspected but no clear cut infiltrate at L base on frontal view (no spine sign on lateral view)
Noted h/o similar presentation in June but with L basilar infiltrate, negative PCT, received ceftriaxone and azithromycin for 2 d and atbs were d/c with no consequence (previously seen L basilar infiltrate in June 2023 is no longer seen on current
adm CXR)
Had negative outpatient VSE in 06-06, mild OP dysphagia, trace penetration, rec regular solids and thin liquids then
D/w Speech Therapist 07-16, no indication to repeat test, can take regular solids and mildly thick liquids
Flu, COVID negative
Blood cx NTD
No sputum cx collected this or previous June adm
Negative PCT
Suspected R basilar infiltrate on frontal view, but not obvious on lateral view
Rec to d/c atbs (zosyn) and observe. I have no objection to short augmentin course as being considered by adm svce
Agree with discontinuation of systemic CS
Can transfer to [facility] today
Subjective Data
-
Date of Service:
Date of Service: July 18, 2023
Chief Complaint: Pulmonary Follow Up
Subjective:
No major events reported overnight
No dyspnea at rest, already on chronic O2 at home, does not recall baseline O2 requirement
Trace intermittent cough which apparently is chronic (limited historian)
Review of Systems
General: Fever (n) and Satisfactory Appetite
HEENT: Epistaxis (n)
Cardiopulmonary: Dyspnea (n), Cough, Sputum Production (n), Wheezing and Hemoptysis (n)
GI: Abdominal Pain (n), Nausea (n) and Vomiting (n)
Neuro: Weakness
Objective Data
Data Reviewed
Vital Signs / I&O / Oxygen:
Vital Signs
Temp Pulse Resp BP Pulse Ox
98.9 F 72 14 133/86 96
07/18/23 04:35 07/18/23 07:16 07/18/23 07:16 07/18/23 04:00 07/18/23 07:16
Intake and Output
07/17/23 07/18/23 07/19/23
06:59 06:59 06:59
Intake Total 1750 / 1750
Output Total 1300 / 1300
Balance 450 / 450
SaO2 96
Nasal Cannula flow liters per 2
minute
Physical Exam
General: Comfortable
HEENT: Normocephalic and Moist Mucous Membranes
Cardiovascular: Regular Rhythm, Peripheral Edema (n) and Calf Tenderness (n)
Respiratory: Rhonchi, Non-Labored Respirations and Stridor (n)
GI: Soft, Non Distended and Non Tender
Neurology: Awake, Oriented and No Motor Deficits
Skin: Warm
Labs/Micro/Reports
Lab Data
07/18/23 04:10
07/18/23 04:10
Microbiology
07/17/23 00:18 Blood/Venous Blood Culture - Preliminary
No Growth in 24 hours- Final report to follow
07/16/23 21:03 Nasal Swab Influenza Types A & B (CELINA) - Final
Negative for Influenza A & B, NAAT
Negative results must be combined with clinical observations
and patient history.
Nucleic Acid Amplification test (NAAT)performed on the
[employer] platform.
[2023-07-18 08:02] LABS: Glucose - Point of Care 205 mg/dl (70-99)
--- NOTE | 2023-07-18 08:05 | PTCARENOTE ---
Assumed care of pt at 0715. Pt awake and resting quietly in bed. Denies c/o pain or SOB. Physical assessment completed as documented. Pt assisted in ordering breakfast. Order received for Med/Surg level of care- bus driver/monitor removed. Call mullins
w/in pt reach and pt encouraged to call for assistance prior to getting OOB.
[2023-07-18] MEDS: NOVOLOG FLEXPEN-LOW RESISTANCE 2 UNITS SC (08:33)
[2023-07-18] MEDS: LIPITOR 20 MG PO (08:34)
[2023-07-18] MEDS: JANUVIA 100 MG PO (08:34)
[2023-07-18] MEDS: VITAMIN B-12 500 MCG PO (08:34)
[2023-07-18] MEDS: CLARITIN 10 MG PO (08:34)
[2023-07-18] MEDS: DEPAKOTE (12 HR RELEASE) 250 MG PO ×2 (08:35→20:14)
[2023-07-18] MEDS: DEPAKOTE (12 HR RELEASE) 1000 MG PO ×2 (08:35→20:14)
[2023-07-18] MEDS: COSOPT EYE DROPS 1 DROP BOTH EYES ×2 (08:45→20:15)
--- NOTE | 2023-07-18 11:26 | PTCARENOTE ---
Pt OOB in chair. Assisted in ordering additional items for breakfast. No complaints received. Remains on O2 @ 2l/min w/ POx 96%. Waiting on bed availability to transfer to /.
[2023-07-18] MEDS: NOVOLOG FLEXPEN-LOW RESISTANCE 3 UNITS SC (11:53)
[2023-07-18 11:58] LABS: Glucose - Point of Care 286 mg/dl (70-99)
--- NOTE | 2023-07-18 12:17 | PTCARENOTE ---
Dr Thrasher notified of pt's blood sugar trending >200 and that pt is currently ordered a Regular diet and on low dose sliding scale insulin coverage. Per Dr Thrasher- no change in orders.
--- NOTE | 2023-07-18 14:32 | CM ---
Patient seen at bedside. Patient remains on O2 and in ICU. Patient is from [facility] and CM spoke with Jenifer who normally works there m-f. Per Jenifer thickening is not a problem at the facility but she requested that the pharmacy patient medications
go to is [facility] in [facility]. Phone number is [phone]/fax [phone]. CM spoke with [facility] and they are working to add pharmacy into the [employer] system. Patient Plan is to return to [facility] and Phone report to Jenifer/Elizabeth
at [facility] is [phone]/fax number is [phone]. [facility] does provide transportation but will need to have the discharge plan faxed to them and update to pharmacy will take at least 24 hours to have medication delivered to the facility.
Patient is current with [facility] per prior CM note, CM will send tt to liaison. CM will continue to follow for discharge planning needs.
Plan; return to [facility], [facility] to [facility]
[2023-07-18 17:27] LABS: Glucose - Point of Care 401 mg/dl (70-99)
[2023-07-18] MEDS: NOVOLOG FLEXPEN-MODERATE RESISTANCE 11 UNITS SC (17:59)
[2023-07-18] MEDS: LOVENOX 40 MG SC (17:59)
[2023-07-18] MEDS: NOVOLOG FLEXPEN-LOW RESISTANCE SC (18:29)
[2023-07-18 18:31] LABS: Glucose 368 mg/dl (70-99)
[2023-07-18] MEDS: ATARAX 50 MG PO (20:14)
[2023-07-18] MEDS: AUGMENTIN 875 MG/125 MG 1 TABLET PO (20:14)
[2023-07-18] MEDS: ZYPREXA 20 MG PO (20:14)
[2023-07-18 21:22] LABS: Glucose - Point of Care 385 mg/dl (70-99)
[2023-07-18] MEDS: NOVOLOG FLEXPEN 9 UNITS SC (21:43)
[2023-07-19 00:10] LABS: Glucose - Point of Care 340 mg/dl (70-99)
[2023-07-19] MEDS: NOVOLOG FLEXPEN 7 UNITS SC (00:19)
[2023-07-19 05:36] LABS: % Basophils 0.3 % (0-2); % Immature Granulocytes 1.6 % (0-0.5); % Lymphocytes 19.5 % (20.5-51.1); % Monocytes 10.9 % (1.7-9.3); % Neutrophils 67.7 % (42.2-75.2); Absolute Immature Granulocytes 0.1 10^3/uL (0-0.05); Absolute Lymphocytes 1.4 10^3/uL (1.2-3.4); Absolute Monocytes 0.8 10^3/uL (0.1-0.6); Absolute Neutrophils 4.7 10^3/uL (1.4-6.5); Hemoglobin 10.3 g/dL (13.0-18.0); Mean Corp Hgb Conc. 33.2 g/dL (33.0-37.0); Mean Corpuscular Hgb 32.3 pg (27.0-31.0); Mean Corpuscular Volume 97.2 fL (80.0-94.0); Mean Platelet Volume 10.5 fL (7.4-10.4); Nucleated Red Blood Cells % 0 % (-); Platelet Count 200 10^3/uL (130-400); Red Blood Cell Count 3.19 10^6/uL (4.70-6.10); Red Cell Dist. Width 15.5 % (11.5-14.5)
--- NOTE | 2023-07-19 05:45 | DOWNTIME ---
There was a [employer] Downtime on 07/19/2023 from 0100 to 07/19/2023 at 0439. Downtime documentation of patient's care, including medication administrations, has been reconciled in the electronic record per guidelines. Refer to the
patient's paper chart under the miscellaneous tab to see printed paper medication records and downtime forms.
[2023-07-19 06:03] LABS: ALT (SGPT) 12 U/L (0-50); AST (SGOT) 13 U/L (17-59); Albumin 2.9 g/dl (3.5-5.0); Alkaline Phosphatase 49 U/L (38-126); Blood Urea Nitrogen 18 mg/dl (9-20); Calcium 9.3 mg/dl (8.4-10.2); Carbon Dioxide 33 mmol/L (22-30); Chloride 101 mmol/L (98-107); Estimated Creatinine Clearance > 125 ml/min; Glucose 246 mg/dl (70-99); Potassium 4.3 mmol/L (3.5-5.1); Sodium 135 mmol/L (135-145); Total Bilirubin 0.2 mg/dl (0.2-1.3); Total Protein 5.2 g/dl (6.3-8.2); eGFR > 60.00
--- NOTE | 2023-07-19 06:42 | W.PN.UPDATE ---
Update Note
Progress Note Update
Patient is medically stable for discharge
Now off IV steroids and IV antibiotics and will probably not need p.o. antibiotics on discharge as believed had aspiration event only without evidence of active infection
Will need aspiration precautions going forward where he lives at [facility]
Understand they need 24 hours notice for a discharge plan if any new medications to be offered there are no new medications at the time of this writing and should be stable to go today if arrangements can be made.
--- NOTE | 2023-07-19 06:52 | W.PN.PUL3 ---
Today's Communication / Plan
-
Reconsult prn
Assessment
-
Assessment:
Mr Oren Velazquez is a 63/M adm 07-15 from [place] with reported dyspnea and cough. H/o developmental delay, COPD on O2, chronic hypoxia/hypercarbia, T2DM, former smoker, NHR. Adm to IMU. At time of visit, sitting in chair, able to speak in almost full
sentences, reports cough with difficulty expectorating
Impression:
Suspected R basilar infiltrate on frontal view
Negative PCT
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
COPD on home 2 L
Chronic hypoxic hypercarbic RF
L basilar infiltrate on CXR and CT June 2023, adm DH, negative PCT, received ceftriaxone and azithromycin for 2 d and atbs were d/c
Mild
GERD
Hypothyroidism
HTN
Schizophrenia
Anemia
Nephrolithiasis
BPH
Polydipsia
Sz
T2DM
Legally blind
Glaucoma
COVID
Cholecystectomy
Former Smoker
NHR
Disabled
Plan:
Continue O2 protocol
Currently on O2 NC 3L, POx 96%, resp arevalo comfortable
Remains hemodyn stable, single fever event on 07-16 noted
Already on home O2, known h/o COPD/hypoxemia/hypercarbia. Does not recall baseline O2 requirement, but reportedly on 2L as outpatient
CXR with suspected but no clear cut infiltrate at L base on frontal view (no spine sign on lateral view)
Noted h/o similar presentation in June 2023 but with L basilar infiltrate, negative PCT, received ceftriaxone and azithromycin for 2 d and atbs were d/c with no consequence (previously seen L basilar infiltrate in June 2023 is no longer seen on
current adm CXR)
Had negative outpatient VSE in 06-06, mild OP dysphagia, trace penetration, rec regular solids and thin liquids then
D/w Speech Therapist 07-16, no indication to repeat test, can take regular solids and mildly thick liquids
Flu, COVID negative
Blood cx NTD
No sputum cx collected this or previous June adm
Negative PCT
Suspected R basilar infiltrate on frontal view, but not obvious on lateral view, and of note no respiratory symptoms of significance this adm
Off empiric atbs (zosyn), observing, doing clinically well. I have no objection to short augmentin course as being considered by adm svce
Agree with discontinuation of systemic CS
Can transfer to [facility] today or d/c at discretion of adm svce
Reconsult prn
Subjective Data
-
Date of Service:
Date of Service: July 19, 2023
Chief Complaint: Pulmonary Follow Up
Subjective:
No major events reported overnight
Respiratory arevalo remains stable, off antibiotics, follow clinically
Denies major complaints
Looking forward to discharge today
Review of Systems
General: Fever (n), Sweats (n), Chills (n) and Satisfactory Appetite
Cardiopulmonary: Dyspnea (n), Cough (n) and Chest Pain (n)
GI: Abdominal Pain (n), Nausea (n) and Vomiting (n)
Neuro: Weakness
Objective Data
Data Reviewed
Vital Signs / I&O / Oxygen:
Vital Signs
Temp Pulse Resp BP Pulse Ox
97.7 F 75 18 122/64 96
07/18/23 21:40 07/18/23 21:40 07/18/23 21:40 07/18/23 21:37 07/18/23 21:56
Intake and Output
07/17/23 07/18/23 07/19/23
06:59 06:59 06:59
Intake Total 1750 / 1750 960 / 960
Output Total 1300 / 1300 900 / 900
Balance 450 / 450 60 / 60
SaO2 96
Nasal Cannula flow liters per 2
minute
Physical Exam
General: Comfortable
HEENT: Normocephalic and Moist Mucous Membranes
Cardiovascular: Regular Rhythm, Peripheral Edema (n) and Calf Tenderness (n)
Respiratory: Rhonchi, Non-Labored Respirations and Stridor (n)
GI: Soft, Non Distended and Non Tender
Neurology: Awake, Oriented and No Motor Deficits
Skin: Warm
Labs/Micro/Reports
Lab Data
07/19/23 05:14
07/19/23 05:14
Microbiology
07/17/23 00:18 Blood/Venous Blood Culture - Preliminary
No Growth in 48 hours- Final report to follow
07/17/23 01:25 Nose MRSA Screen - Final
No Methicillin Resistant Staphylococcus aureus isolated.
07/16/23 21:03 Nasal Swab Influenza Types A & B (CELINA) - Final
Negative for Influenza A & B, NAAT
Negative results must be combined with clinical observations
and patient history.
Nucleic Acid Amplification test (NAAT)performed on the
[employer] platform.
[2023-07-19] MEDS: VENTOLIN NEBULES 2.5 MG INH ×2 (07:24→11:24)
[2023-07-19] MEDS: SPIRIVA RESPIMAT 2.5 MCG 2 PUFF INH (07:25)
[2023-07-19] MEDS: SYMBICORT 80/4.5 MCG INHALER 2 PUFF INH (07:25)
[2023-07-19 07:48] VITALS: BP 129/83
[2023-07-19 08:01] LABS: Glucose - Point of Care 226 mg/dl (70-99)
[2023-07-19] MEDS: VITAMIN B-12 500 MCG PO (08:10)
[2023-07-19] MEDS: SYNTHROID 200 MCG PO (08:11)
[2023-07-19] MEDS: CLARITIN 10 MG PO (08:11)
[2023-07-19] MEDS: LIPITOR 20 MG PO (08:11)
[2023-07-19] MEDS: AUGMENTIN 875 MG/125 MG 1 TABLET PO (08:12)
[2023-07-19] MEDS: DEPAKOTE (12 HR RELEASE) 1000 MG PO (08:12)
[2023-07-19] MEDS: JANUVIA 100 MG PO (08:12)
[2023-07-19] MEDS: DEPAKOTE (12 HR RELEASE) 250 MG PO (08:12)
[2023-07-19] MEDS: COSOPT EYE DROPS 1 DROP BOTH EYES (08:13)
[2023-07-19] MEDS: NOVOLOG FLEXPEN-MODERATE RESISTANCE 3 UNITS SC ×2 (08:14→12:13)
--- NOTE | 2023-07-19 08:30 | VNURNOTE ---
YANYVN resumption of care completed in Care Port after review of chart, SN & ST added.
--- NOTE | 2023-07-19 08:31 | CM ---
Addendum entered by Luci Quarles 07/19/23 11:14:
[facility] to come for patient at 1:30pm and nurse to call report.
Addendum entered by Luci Quarles 07/19/23 09:39:
Patient seen at bedside, IMM reviewed and CM attempted to leave message with patient sister re discharge to [facility]. Patient nurse at [facility] has questions about medications. CM updated nursing and they spoke with Jenifer at [facility].
Original Note:
Patient with new discharge order. pharmacy patient medications go to is [facility] in [facility]. Phone number is [phone]/fax [phone]. MIS added pharmacy to the Data base and physician is aware.
Patient Plan is to return to [facility] and Phone report to Jenifer/Elizabeth at [facility] is [phone]/fax number is [phone]. [facility] does provide transportation. CM spoke lucila Burgess today and she requested the MAR be faxed to them for review
and indicated if no changes they will be able to provide transportation later today. Any changes to medications will take at least 24 hours to have medication delivered to the facility. Patient is current with [facility]. CM will continue to follow for
discharge planning needs.
Plan; discharge back to [facility]
[2023-07-19 09:12] LABS: Glycohemoglobin (HgbA1c) 7.6 % (4.0-5.6)
--- NOTE | 2023-07-19 10:06 | PTCARENOTE ---
Phone call received from Gonzalez ECHAVARRIA at [facility] w/ update on pt's meds and dosages prior to admission. [place] Text to Dr High w/ updated information: per Gonzalez RODRIGUEZ' pt was not taking Atenolol, Fanapt, and Lisinopril prior to admission. Dosage
of Olanzapine was 30mg- written as '15mg, two tablets at HS'
[2023-07-19 11:18] LABS: Glucose - Point of Care 288 mg/dl (70-99)
--- NOTE | 2023-07-19 11:26 | W.DCSUMMARY ---
Discharge Summary
Discharge Data
Date of Admission: 07/16/23
Date of Discharge: 07/19/23
-
Pending Results: No
Hospital Course
63-year-old male from a support at home admitted date of admission with dyspnea and cough he has a history of developmental delay with also underlying COPD and oxygen dependent with hypoxia and hypercarbia on a chronic basis and also poorly
controlled type 2 diabetes mellitus due to noncompliance to his diet. He has had numerous admissions in the last 6 months in relation to suspected aspiration pneumonitis and this is no different as the patient presented with a suspected right
basilar infiltrate in the frontal view only but with a negative procalcitonin pointing to a probable nonbacterial and possible inflammation from chronic aspiration. His most recent prior admission was in relation to a left basilar infiltrate on
chest x-ray initial course of empiric ceftriaxone and doxycycline was thusly discontinued and also we discontinued IV steroids as were his only aggregate aggravating his hyperglycemia/patient was seen by the pulmonary service who concurred with
above management and in agreement that this was at best or at most an aspiration event thusly was placed on a short course of p.o. Augmentin but and at time of discharge discontinued we have tried to continue to reinforce the need for vigilance
during his meals as patient is noted to have a cough when he eats but remains impulsive especially with his constant wishes to drink coffee and will be a difficult issue going forward to try and prevent further aspiration events. Speech therapy
felt that there is no further need for a visit a video swallow study in comparison to the one that was done most recently showing some laryngeal penetration. I find on his med rec certain items have been discontinued from his last admission
including atenolol lisinopril and Fanapt which should be discontinued ongoing and olanzapine increased from 20 mg to 30 mg at bedtime/of note on his presentation time of admission he was tested for influenza and COVID both proving negative.
Discharge Plan
-
Patient Disposition: Senior Living/SNF
Discharge Diagnosis/Procedures: Aspiration pneumonitis
Chronic hypoxic respiratory failure at baseline oxygen requirement/COPD without exacerbation
Dementia
Diet: Regular
Additional Diets: Aspiration precautions
Activity: As tolerated
Driving Restrictions: No driving
Referrals:
UNKNOWN - PT DOES,NOT KNOW [Family Provider] -
Additional Discharge Medication Instructions: Stop Fanapt could not find in reconciliation on discharge to discontinue
Prescriptions:
Continued
Januvia 100 MG tablet
100 mg PO DAILY
fexofenadine 180 MG tablet
180 mg PO DAILY
levothyroxine 200 MCG tablet
200 mcg PO DAILY AT 0700
acetaminophen [Tylenol] 325 mg Tablet
650 mg PO Q4HPRN PRN (Reason: mild pain)
atorvastatin 20 mg tablet
20 mg PO DAILY
ipratropium-albuterol 0.5 mg-3 mg(2.5 mg base)/3 mL Solution For Nebulization
3 ml INHALATION R BID
polyethylene glycol 3350 [Miralax] 17 gram Powder In Packet
17 g PO DAILY PRN (Reason: constipation)
metformin 500 mg tablet
500 mg PO BID@799,1999
divalproex 250 mg Tablet,Delayed Release (Dr/Ec)
250 mg PO BID@799,1999
Rx Instructions:
06/17/2023, take with 1,000 mg for a total of 1,250 mg.
hydroxyzine pamoate 50 mg Capsule
50 mg PO DAILY@1999
divalproex 500 mg Tablet,Delayed Release (Dr/Ec)
1,000 mg PO BID@799,1999
Rx Instructions:
06/17/2023, take with 250 mg for a total of 1,250 mg.
cyanocobalamin (vitamin B-12) 500 mcg Tablet
500 mcg PO DAILY
amlodipine 5 mg tablet
5 mg PO DAILY
tamsulosin 0.4 mg capsule
0.4 mg PO DAILY
omeprazole 20 mg capsule,delayed release(DR/EC)
20 mg PO DAILY
diltiazem HCl 120 mg capsule,extended release 24hr
120 mg PO DAILY
insulin aspart U-100 [Novolog FlexPen U-100 Insulin] 100 unit/mL (3 mL) insulin pen
0 sliding scale dose SC ACHS
Rx Instructions:
100-150=3 UNITS, 151-200= 6 UNITS, 201-250=12U, 251-300=12U, 301-350=14U, >351 CALL OFFICE
insulin glargine [Lantus Solostar U-100 Insulin] 100 unit/mL (3 mL) insulin pen
10 unit SC HS
Changed
olanzapine 20 mg Tablet
30 mg PO DAILY@1999 Qty: 0 0RF
Discontinued
atenolol 25 mg Tablet
25 mg PO DAILY
lisinopril 2.5 MG tablet
2.5 mg PO DAILY
Discharge Orders:
Discharge Patient (As Directed); Ordered 07/19/23
Ordered By: Jose High
Discharge Date and Time
Print Language: LAO
--- NOTE | 2023-07-19 11:35 | W.DS.TRANS ---
DC Summary - [facility]
-
Discharge Instructions:
Discharge Diagnosis/Procedures Aspiration pneumonitis
Chronic hypoxic respiratory failure at baseline
oxygen requirement/COPD without exacerbation
Dementia
Diet Regular
Additional Diets Aspiration precautions
Activity As tolerated
Driving Restrictions No driving
Instructions:
Stand-Alone Forms:
Changes to Home Medications: No
Discharge Medications:
DC Medications w/original date entered in [employer]
sitagliptin phosphate 100 mg tablet (Januvia) 100 mg PO DAILY Diabetes 10/12/18
fexofenadine 180 mg tablet 180 mg PO DAILY Allergies 07/08/19
levothyroxine 200 mcg tablet 200 mcg PO DAILY AT 0700 Thyroid 07/08/19
acetaminophen 325 mg tablet (Tylenol) 650 mg PO Q4HPRN PRN mild pain 04/24/23
atorvastatin 20 mg tablet 20 mg PO DAILY High Cholesterol 04/24/23
ipratropium 0.5 mg-albuterol 3 mg (2.5 mg base)/3 mL nebulization soln 3 ml inhalation R BID Lung/Breathing Issues 04/24/23
polyethylene glycol 3350 17 gram oral powder packet (Miralax) 17 g PO DAILY PRN constipation 04/25/23
cyanocobalamin (vitamin B-12) 500 mcg tablet 500 mcg PO DAILY Supplement 06/17/23
divalproex 250 mg tablet,delayed release 250 mg PO BID@08,1999 mental health 06/17/23
divalproex 500 mg tablet,delayed release 1,000 mg PO BID@08,1999 mental health 06/17/23
hydroxyzine pamoate 50 mg capsule 50 mg PO DAILY@1999 Mental Health/Anxiety 06/17/23
metformin 500 mg tablet 500 mg PO BID@08,1999 Diabetes 06/17/23
amlodipine 5 mg tablet 5 mg PO DAILY Blood Pressure 07/18/23
diltiazem HCl 120 mg capsule,extended release 24 hr 120 mg PO DAILY Heart Disease/Condition 07/18/23
insulin aspart U-100 100 unit/mL (3 mL) subcutaneous pen (Novolog FlexPen U-100 Insulin aspart) 0 sliding scale dose SC ACHS Diabetes 07/18/23
insulin glargine 100 unit/mL (3 mL) subcutaneous pen (Lantus Solostar U-100 Insulin) 10 unit SC HS Diabetes 07/18/23
omeprazole 20 mg capsule,delayed release 20 mg PO DAILY Gastrointestinal Issue 07/18/23
tamsulosin 0.4 mg capsule 0.4 mg PO DAILY Urinary Issue 07/18/23
olanzapine 20 mg tablet 30 mg (1.5 x 20 mg) PO DAILY@1999 [facility] #0 tabs 07/19/23
Home Medication Changes
Pending Results: No
Total time spent discharging patient (in min): 34
[2023-07-19 11:55] LABS: Glucose - Point of Care 207 mg/dl (70-99)
[2023-07-19 12:45] VITALS: BP 131/78
--- NOTE | 2023-07-19 14:43 | PTCARENOTE ---
Pt discharged via WC w/ personal belongings from room. No complaints or changes prior to discharge. 'Clif' provided provided pt transport back to [facility] and stated he was in possession of portable O2 to place pt on his usual O2 at 2l/min via
NC.
== END 2023-07-19 15:23 | DRG 177 ==
LOC: ICU 23:43
PROVIDERS: Clinical Nurse Specialist Family Health; ADMITTING PHYSICIAN Internal Medicine; ATTENDING PHYSICIAN Internal Medicine; EMERGENCY PHYSICIAN Emergency Medicine; OTHER PHYSICIAN Internal Medicine Pulmonary Disease
DX: J69.0 Pneumonitis due to inhalation of food and vomit (principal); J96.21 Acute and chronic respiratory failure with hypoxia; J44.1 Chronic obstructive pulmonary disease with (acute) exacerbation; F20.9 Schizophrenia, unspecified; R62.50 Unspecified lack of expected normal physiological development in childhood; E11.65 Type 2 diabetes mellitus with hyperglycemia; E03.9 Hypothyroidism, unspecified; I10 Essential (primary) hypertension; Z99.81 Dependence on supplemental oxygen; Z91.199 Patient's noncompliance with other medical treatment and regimen due to unspecified reason; Z87.891 Personal history of nicotine dependence
CPT/HCPCS: 71046; 80053; 82947; 82962; 83036; 83880; 84145; 84484; 85025; 87040; 87070; 87502; 87811; 92526; 92610; 93005; 94640; 97163; 97166; 99285

== ENCOUNTER 2023-09-13 16:57 | Emergency (ER) | payer MEDICARE, MEDICAID, SELFPAY ==
[2023-09-13 17:03] VITALS: BP 132/74
[2023-09-13 17:21] LABS: % Basophils 0.3 % (0-2); % Eosinophils 0.9 % (0-6); % Immature Granulocytes 2.5 % (0-0.5); % Lymphocytes 23.2 % (20.5-51.1); % Monocytes 16.3 % (1.7-9.3); % Neutrophils 56.8 % (42.2-75.2); Absolute Immature Granulocytes 0.1 10^3/uL (0-0.05); Absolute Lymphocytes 0.7 10^3/uL (1.2-3.4); Absolute Monocytes 0.5 10^3/uL (0.1-0.6); Absolute Neutrophils 1.8 10^3/uL (1.4-6.5); Hematocrit 35.7 % (39.0-52.0); Hemoglobin 11.7 g/dL (13.0-18.0); Mean Corp Hgb Conc. 32.8 g/dL (33.0-37.0); Mean Corpuscular Hgb 32.1 pg (27.0-31.0); Mean Corpuscular Volume 98.1 fL (80.0-94.0); Mean Platelet Volume 10.6 fL (7.4-10.4); Nucleated Red Blood Cells % 0 % (-); Platelet Count 172 10^3/uL (130-400); Red Blood Cell Count 3.64 10^6/uL (4.70-6.10); Red Cell Dist. Width 13.4 % (11.5-14.5); White Blood Cell Count 3.2 10^3/uL (4.8-10.8)
--- NOTE | 2023-09-13 17:24 | ED.GENMED ---
History of Present Illness
General
Chief Complaint: Breathing Problem
Time Seen by Provider: 09/13/23 17:01
Travel History
Have you had any contact with someone who has COVID-19?: No
Do you have any symptoms of coronavirus? Fever > 100 degrees, chills, cough, shortness of breath, sore throat, loss of taste or smell, muscle aches, or headache?: No
History of Present Illness
History of Present Illness:
63-year-old male with history of COPD and chronic oxygen use presents to the emergency department from [facility] to the emergency department for evaluation of shortness of breath. He is chronically on 2 L nasal cannula but
was noted to have oxygen saturations in the upper 80% range today. He denies any shortness of breath but does report coughing. He has a history of recurrent pneumonia. No reported fevers or chills. Repeatedly asking for coffee
Past History
Past History
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 Limited vision on left eye. )
ED Past Surgical History: None
Social History
Tobacco: Former smoker
Alcohol: None
Drug: None
Personal: Single
Living: half-way
Employment: Disabled
Family History
Family History: Other (Reviewed and noncontributory)
Review of Systems
Review of Systems
Allergies reviewed?: Yes
All Other Systems: ROS reviewed and negative except as documented in HPI and ROS
Phy Exam
Physical Exam
Physical Exam:
GEN: Well appearing, NAD, WDWN
HEENT: Oral mucosa moist, no scleral icterus
Cardiac: Regular rateAnd rhythm, no murmur
Lung: No respiratory distress, no tachypnea, Diminished bibasilar breath sounds, scant upper airway wheezes heard
MSK: No gross deformity or injuries
Skin: Good color, no pallor or jaundice, no rashes
Neuro: AO x3, moves all extremities freely
Psych: Calm, cooperative
Scores
Heart Failure Risk
Heart Failure Risk Score: Not Applicable
Course
Orders/Labs/Results
Orders:
Orders
09/13/23 17:07
EKG [Electrocardiogram (*1)] Urgent
Reason for Study: Shortness of Breath
09/13/23 17:08
EKG- Treatment ONCE
CR Chest - 2 Views Urgent
Comment:
Reason For Exam: SOB/hypoxia
09/13/23 17:14
COVID-19 Antigen Urgent
Source: Nasal Swab
Complete Blood Count/With Diff Urgent
Comprehensive Metabolic Panel Urgent
NT-proBNP Urgent
Troponin I Urgent
09/13/23 18:32
CT Chest Pe Study Urgent
Comment:
Reason For Exam: hypoxia
Ipratropium/Albuterol Sulfate [Duoneb] 3 ml INH R NOW ONE
09/13/23 20:20
Amoxicillin 875 mg/Clav 125 mg [Augmentin 875 mg/125 mg] 1 tablet PO NOW STA
Abnormal Lab Results
09/13/23
17:14
WBC 3.2 L 10^3/uL
(4.8-10.8)
RBC 3.64 L 10^6/uL
(4.70-6.10)
Hgb 11.7 L g/dL
(13.0-18.0)
Hct 35.7 L %
(39.0-52.0)
MCV 98.1 H fL
(80.0-94.0)
MCH 32.1 H pg
(27.0-31.0)
MCHC 32.8 L g/dL
(33.0-37.0)
MPV 10.6 H fL
(7.4-10.4)
Abs Immat Gran (auto) 0.1 H 10^3/uL
(0-0.05)
Absolute Lymphs (auto) 0.7 L 10^3/uL
(1.2-3.4)
Immature Gran % 2.5 H %
(0-0.5)
Monocytes % 16.3 H %
(1.7-9.3)
Chloride 95 L mmol/L
(98-107)
Carbon Dioxide 37 H mmol/L
(22-30)
Glucose 301 H mg/dl
(70-99)
AST 16 L U/L
(17-59)
Total Protein 5.8 L g/dl
(6.3-8.2)
Albumin 3.3 L g/dl
(3.5-5.0)
09/13/23 17:14
09/13/23 17:14
Vital Signs
Initial and Last Documented VS:
Initial Vital Signs
Temp Pulse Resp BP Pulse Ox
98.4 F 95 14 132/74 87
09/13/23 17:03 09/13/23 17:03 09/13/23 17:03 09/13/23 17:03 09/13/23 17:03
Last Documented Vital Signs
Temp Pulse Resp BP Pulse Ox
98.4 F 103 28 132/74 94
09/13/23 17:03 09/13/23 18:15 09/13/23 18:15 09/13/23 17:03 09/13/23 18:00
MDM/Problems Addressed
MDM/Problems Addressed:
[facility]. He has a known history of chronic aspiration and his workup here does not suggest any active infectious process. He is not wheezing and imaging shows scant infiltrate in the
right lower lobe which is likely related to his chronic aspiration issues. His oxygen saturations were noted to only which I suspect is due to his noncompliance with wearing his nasal cannula. He is in no distress and I do not see any occasion for
hospitalization. Avoided corticosteroid use due to elevated blood glucose. Short course of Augmentin however suspect this is likely virally mediated
*Critical Care Note
Total Time (30-74mins, 75-104mins- exclusive of procedures): Not Applicable
ED Attending Note
-
Portions of this chart may have been created with voice recognition software.� Occasional wrong word or��sound alike� substitutions may have occurred due to the inherent limitations of voice recognition software.
Discharge Plan
Departure
Patient Disposition: Home (Routine Discharge)
Date of Disposition: 09/13/23
Time of Disposition: 20:23
Patient with high blood pressure during this ER visit?: No
Discharge Problem:
Aspiration pneumonitis
Instructions: Aspiration Pneumonia (DC)
Prescriptions:
New
amoxicillin-pot clavulanate 875-125 mg tablet
1 tab PO BID 5 Days Qty: 10 0RF
No Action
Januvia 100 MG tablet
100 mg PO DAILY
fexofenadine 180 MG tablet
180 mg PO DAILY
levothyroxine 200 MCG tablet
200 mcg PO DAILY@0600
acetaminophen [Tylenol] 325 mg Tablet
650 mg PO Q4HPRN PRN (Reason: mild pain)
atorvastatin 20 mg tablet
20 mg PO DAILY
ipratropium-albuterol 0.5 mg-3 mg(2.5 mg base)/3 mL Solution For Nebulization
3 ml INHALATION R BID
polyethylene glycol 3350 [Miralax] 17 gram Powder In Packet
17 g PO DAILYPRN PRN (Reason: constipation)
metformin 500 mg tablet
500 mg PO BID@799,1999
divalproex 250 mg Tablet,Delayed Release (Dr/Ec)
250 mg PO BID@799,1999
Patient Comments:
09/13/2023: taken w/ 1000mg = 1250mg
divalproex 500 mg Tablet,Delayed Release (Dr/Ec)
1,000 mg PO BID@0800,1999
Patient Comments:
09/13/2023: taken w/ 250mg = 1250mg
cyanocobalamin (vitamin B-12) 500 mcg Tablet
500 mcg PO DAILY
amlodipine 5 mg tablet
5 mg PO DAILY
tamsulosin 0.4 mg capsule
0.4 mg PO DAILY@1999
omeprazole 20 mg capsule,delayed release(DR/EC)
20 mg PO DAILY
diltiazem HCl 120 mg capsule,extended release 24hr
120 mg PO DAILY
insulin glargine [Lantus Solostar U-100 Insulin] 100 unit/mL (3 mL) insulin pen
10 unit SC DAILY
Acid Gone Antacid 95-358 mg/15 mL Suspension
15 ml PO DAILYPRN PRN (Reason: acid)
olanzapine 15 mg Tablet
30 mg PO HS
albuterol sulfate 90 mcg/actuation Hfa Aerosol Inhaler
2 puff INHALATION R Q4HPRN PRN (Reason: copd)
Novolin R FlexPen 100 unit/mL (3 mL) Insulin Pen
3 - 14 sliding scale dose SC MEALS HS
Patient Comments:
09/13/2023: Sliding Scale, if 100-150= 3; 151-200= 6; 201-250= 9; 251-300= 12; 301-350= 14; <350 call office
quetiapine 50 mg Tablet
50 mg PO HS
guaifenesin 600 mg Tablet Extended Release 12hr
600 mg PO BID
Referrals:
Rubio Edwards DO [Family Provider] -
Activity Restrictions/Additional Instructions:
There is a question of mild pneumonia in the right lower lung which is likely from Jacob's chronic aspiration. His lab work looks normal and his oxygen is stable. Will treat him with a short course of antibiotic. The first dose was given in the ER
Interventions
Interventions:
*Risk Screen - Suicide Last Done: 09/13/23 17:02
*General Assessment Last Done: 09/13/23 17:02
*Neglect/Abuse Screening Last Done: 09/13/23 17:02
*ED COVID-19 Vaccine History Last Done: 09/13/23 17:02
ED- Cardiac Assessment Last Done: 09/13/23 17:05
ED- Pulmonary Assessment Last Done: 09/13/23 17:05
Discharge Date and Time
Print Language: BENGALI
[2023-09-13 17:36] LABS: COVID-19 Antigen Negative (Negative)
[2023-09-13 17:41] LABS: ALT (SGPT) 12 U/L (0-50); AST (SGOT) 16 U/L (17-59); Albumin 3.3 g/dl (3.5-5.0); Alkaline Phosphatase 69 U/L (38-126); Blood Urea Nitrogen 19 mg/dl (9-20); Calcium 9.1 mg/dl (8.4-10.2); Carbon Dioxide 37 mmol/L (22-30); Chloride 95 mmol/L (98-107); Glucose 301 mg/dl (70-99); Potassium 4.3 mmol/L (3.5-5.1); Sodium 137 mmol/L (135-145); Total Bilirubin 0.3 mg/dl (0.2-1.3); Total Protein 5.8 g/dl (6.3-8.2); eGFR > 60.00
[2023-09-13 17:47] LABS: NT-proBNP 127 pg/ml
[2023-09-13 18:09] LABS: Troponin I < 0.012 ng/ml
[2023-09-13] MEDS: DUONEB 3 ML INH (18:34)
[2023-09-13 18:38] VITALS: BP 126/76
[2023-09-13 19:25] VITALS: BP 119/68
[2023-09-13 20:00] VITALS: BP 126/95
[2023-09-13] MEDS: AUGMENTIN 875 MG/125 MG 1 TABLET PO (20:29)
[2023-09-13 21:00] VITALS: BP 138/82
== END 2023-09-13 21:38 | disposition home or self-care (01) ==
LOC: EMR 16:57
PROVIDERS: Physician Assistant; EMERGENCY PHYSICIAN Emergency Medicine; FAMILY PHYSICIAN Family Medicine
DX: J69.0 Pneumonitis due to inhalation of food and vomit (principal); J44.9 Chronic obstructive pulmonary disease, unspecified; Z99.81 Dependence on supplemental oxygen; K21.9 Gastro-esophageal reflux disease without esophagitis; E11.65 Type 2 diabetes mellitus with hyperglycemia; E03.9 Hypothyroidism, unspecified; F20.9 Schizophrenia, unspecified; I10 Essential (primary) hypertension; N40.0 Benign prostatic hyperplasia without lower urinary tract symptoms; R09.02 Hypoxemia; Z01.810 Encounter for preprocedural cardiovascular examination; Z86.16 Personal history of COVID-19; Z87.442 Personal history of urinary calculi; Z87.891 Personal history of nicotine dependence
CPT/HCPCS: 99284; 94640; 71046; 71275; 80053; 83880; 84484; 85025; 87811; 93005; Q9967

== ENCOUNTER 2023-09-25 23:05 | Emergency (ER) | payer MEDICARE, MEDICAID, SELFPAY ==
[2023-09-25 23:06] VITALS: BP 102/54
[2023-09-25 23:10] VITALS: BP 102/54
[2023-09-25 23:31] LABS: Hematocrit 32.4 % (39.0-52.0); Hemoglobin 10.8 g/dL (13.0-18.0); Mean Corp Hgb Conc. 33.3 g/dL (33.0-37.0); Mean Corpuscular Hgb 32.3 pg (27.0-31.0); Nucleated Red Blood Cells % 0 % (-); Platelet Count 141 10^3/uL (130-400); Red Blood Cell Count 3.34 10^6/uL (4.70-6.10); Red Cell Dist. Width 14.1 % (11.5-14.5); White Blood Cell Count 7.3 10^3/uL (4.8-10.8)
[2023-09-25 23:45] LABS: ALT (SGPT) < 10 U/L (0-50); AST (SGOT) 14 U/L (17-59); Albumin 3.3 g/dl (3.5-5.0); Alkaline Phosphatase 62 U/L (38-126); Blood Urea Nitrogen 17 mg/dl (9-20); Calcium 8.9 mg/dl (8.4-10.2); Carbon Dioxide 34 mmol/L (22-30); Chloride 101 mmol/L (98-107); Glucose 183 mg/dl (70-99); Potassium 3.9 mmol/L (3.5-5.1); Sodium 140 mmol/L (135-145); Total Bilirubin 0.4 mg/dl (0.2-1.3); Total Protein 5.7 g/dl (6.3-8.2); eGFR > 60.00
[2023-09-26] VITALS (8 sets, daily range): BP systolic 99–123; BP diastolic 42–76
[2023-09-26 00:22] LABS: Absolute Neutrophils -Man Diff 5.4 10^3/uL (1.4-6.5); Band Neutrophils 12 % (0-3); Lymphocytes 10 % (20-51); Monocytes 16 % (2-9); Normal RBC Morphology Yes; Platelets Checked Yes; Segmented Neutrophils 62 % (42-75)
[2023-09-26 00:23] LABS: Total Cells Counted 100
[2023-09-26 04:02] LABS: NT-proBNP 168 pg/ml; Troponin I < 0.012 ng/ml
[2023-09-26 05:43] LABS: Procalcitonin 0.06 ng/ml (0.0-0.25)
--- NOTE | 2023-09-26 06:33 | ED.GENMED ---
History of Present Illness
General
Chief Complaint: Breathing Problem
Source: patient, ambulance crew, previous radiology exam and previous hospital records
Exam Limitations: none
Time Seen by Provider: 09/26/23 02:38
Nursing documentation reviewed up to this point in time: agreed with
History of Present Illness
History of Present Illness:
This is a 63-year-old gentleman with history of COPD, chronically oxygen dependent as well as history of chronic aspiration pneumonitis with multiple previous hospitalizations here for similar complaints most recently in July of this year. He has
history of intellectual disability, schizophrenia, resides in a half-way setting. He has been evaluated by speech therapy, recommending modifications in diet but due to his intellectual disability, patient is hesitant/resistant to continue speech
therapist recommendations.
Most recent ED visit September 12 he presented with similar complaints that he was sent in by half-way staff due to low pulse ox reading. He received a DuoNeb nebulizer en route via EMS and arrives without complaints, sleeps when undisturbed with
pulse ox 96% on his usual baseline 2 to 4 L nasal cannula oxygen.
There has been no report of fever, no vomiting. No complaints of pain.
Past History
Past History
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 Limited vision on left eye. )
ED Past Surgical History: None
Social History
Tobacco: Former smoker
Alcohol: None
Drug: None
Personal: Single
Living: long term
Employment: Disabled
Family History
Family History: Other (Reviewed and noncontributory)
Phy Exam
Physical Exam
Physical Exam:
GENERAL: 63-year-old gentleman appears his stated age, sleeps when undisturbed, easily arousable. Once awake he is bright and alert, frequently asking for coffee, otherwise offers no complaints. Respirations are easy and nonlabored. Nasal cannula
oxygen in place. Pulse ox 94 to 96%. No cough appreciated.
EYE: anicteric
NECK: Supple, nontender, no meningismus, no significant adenopathy.
ENT: oral mucosa is moist. No rhinorrhea.
CARDIAC: Regular rate and rhythm. no murmur.
LUNGS: no acute respiratory distress, minimally decreased breath sounds at bases otherwise clear to auscultation.
ABDOMEN: Rotund, soft, nondistended, without focal tenderness, no r/g, no cvat. normoactive BS.
NEUROLOGICAL: Alert and oriented x3, no focal neuro deficits. Gait is steady.
SKIN: Warm and dry, normal color, skin intact. No rash.
MUSCULOSKELETAL: No C/C/E. peripheral pulses are full and equal b/l. No palpable tenderness.
PSYCH: Intermittently mildly agitated. Cooperative. Repeatedly asking for coffee.
Scores
Heart Failure Risk
Heart Failure Risk Score: Not Applicable
Course
Orders/Labs/Results
Orders:
Orders
09/25/23 23:20
CMP [Comprehensive Metabolic Panel] Urgent
Complete Blood Count/With Diff Urgent
Manual Differential Urgent
09/26/23 02:22
Chest X-ray Portable [CR Chest Portable - 1 View] Urgent
Comment:
Reason For Exam: hx aspiration pneumonia
Reason Study Needs to be Portable: Other
If Reason is Other, explain: unable to transport
09/26/23 03:11
Electrocardiogram (*1) Urgent
Reason for Study: Shortness of Breath
EKG- Treatment ONCE
09/26/23 03:12
Add On- LAB Urgent
Tests Added?: BNP
09/26/23 03:23
NT-proBNP Urgent
Comment: ADD ON
Troponin I Urgent
09/26/23 05:02
Procalcitonin Urgent
PCT Algorithmm Indication: Respiratory
Abnormal Lab Results
09/25/23
23:20
RBC 3.34 L 10^6/uL
(4.70-6.10)
Hgb 10.8 L g/dL
(13.0-18.0)
Hct 32.4 L %
(39.0-52.0)
MCV 97.0 H fL
(80.0-94.0)
MCH 32.3 H pg
(27.0-31.0)
MPV 11.0 H fL
(7.4-10.4)
Band Neutrophils 12 H %
(0-3)
Lymphocytes (Manual) 10 L %
(20-51)
Monocytes (Manual) 16 H %
(2-9)
Carbon Dioxide 34 H mmol/L
(22-30)
Creatinine 0.6 L mg/dL
(0.7-1.3)
Glucose 183 H mg/dl
(70-99)
AST 14 L U/L
(17-59)
Total Protein 5.7 L g/dl
(6.3-8.2)
Albumin 3.3 L g/dl
(3.5-5.0)
09/25/23 23:20
09/25/23 23:20
Vital Signs
Initial and Last Documented VS:
Initial Vital Signs
Temp Pulse Resp BP Pulse Ox
99.3 F 82 26 102/54 96
09/25/23 23:06 09/25/23 23:06 09/25/23 23:06 09/25/23 23:06 09/25/23 23:06
Last Documented Vital Signs
Temp Pulse Resp BP Pulse Ox
99.3 F 83 24 116/70 93
09/25/23 23:06 09/26/23 06:30 09/26/23 06:30 09/26/23 07:00 09/26/23 06:30
MDM/Problems Addressed
Differential Diagnosis Includes:
Concern for recurrent aspiration pneumonia versus exacerbation of aspiration pneumonitis, exacerbation of COPD.
Unremarkable CT of the chest/PE study showing no PE on most recent hospitalization in July. No previous episodes of PE nor thromboembolism thus PE is doubtful.
CHF is also unlikely but will check chest x-ray and will check BNP along with routine labs and troponin.
Will consider procalcitonin as well.
Chronic conditions affecting care: COPD, Psychiatric illness and Other (GERD)
*Radiology
Radiology exam reviewed: preliminary read by ED provider (Chest x-ray shows chronic right lower lobe interstitial disease similar and unchanged from previous.)
*Pulse Oximetry
Patient hypoxic: no
*EKG
Interpreted by ED Provider?: Yes
Comparison EKG: no changes (Unchanged from previous September 13, 2023)
Rate: normal
Rhythm: sinus
[place]: normal axis
Interval: normal interval
QRS Pattern: normal QRS
Ischemia: non-specific ST changes
*Electrical Technology Instructor Interpretation
Rate: normal
Interpretation: normal
Rhythm: sinus
*Critical Care Note
Total Time (30-74mins, 75-104mins- exclusive of procedures): Not Applicable
Update Note
Update Note:
09/26/2023 0644 AM
Patient is up and about walking about stretcher with nasal cannula oxygen in place. Continues to ask for a cup of coffee otherwise is in no distress. No cough, no tachypnea and pulse ox remains 94 to 96% on 4 L nasal cannula.
Chest x-ray shows stable appearing right lower lobe interstitial disease.
Labs are reassuring with normal white blood cell count, normal troponin, normal BNP and normal procalcitonin.
I suspect chronic, stable aspiration pneumonitis.
Recommend continuing pulmonary toilet, continue nebulizer treatments, continue nasal cannula oxygen.
Due to history of diabetes we will hold off on oral steroids and no significant wheezing on exam. Symptoms seem to promptly resolved after nebulizer treatment.
Prompt follow-up with PCP for recheck.
ED Attending Note
-
Portions of this chart may have been created with voice recognition software.� Occasional wrong word or��sound alike� substitutions may have occurred due to the inherent limitations of voice recognition software.
Discharge Plan
Departure
Patient Disposition: Assisted Living
Date of Disposition: 09/26/23
Time of Disposition: 06:46
Patient with high blood pressure during this ER visit?: No
Condition: Good
Discharge Problem:
Asthma exacerbation in COPD, Chronic aspiration pneumonitis
Instructions: Aspiration Pneumonia (DC)
Prescriptions:
No Action
Januvia 100 MG tablet
100 mg PO DAILY
fexofenadine 180 MG tablet
180 mg PO DAILY
levothyroxine 200 MCG tablet
200 mcg PO DAILY@0600
acetaminophen [Tylenol] 325 mg Tablet
650 mg PO Q4HPRN PRN (Reason: mild pain)
atorvastatin 20 mg tablet
20 mg PO DAILY
ipratropium-albuterol 0.5 mg-3 mg(2.5 mg base)/3 mL Solution For Nebulization
3 ml INHALATION R BID
polyethylene glycol 3350 [Miralax] 17 gram Powder In Packet
17 g PO DAILYPRN PRN (Reason: constipation)
metformin 500 mg tablet
500 mg PO BID@799,1999
divalproex 250 mg Tablet,Delayed Release (Dr/Ec)
250 mg PO BID@799,1999
Patient Comments:
09/13/2023: taken w/ 1000mg = 1250mg
divalproex 500 mg Tablet,Delayed Release (Dr/Ec)
1,000 mg PO BID@799,1999
Patient Comments:
09/13/2023: taken w/ 250mg = 1250mg
cyanocobalamin (vitamin B-12) 500 mcg Tablet
500 mcg PO DAILY
amlodipine 5 mg tablet
5 mg PO DAILY
tamsulosin 0.4 mg capsule
0.4 mg PO DAILY@2000
omeprazole 20 mg capsule,delayed release(DR/EC)
20 mg PO DAILY
diltiazem HCl 120 mg capsule,extended release 24hr
120 mg PO DAILY
insulin glargine [Lantus Solostar U-100 Insulin] 100 unit/mL (3 mL) insulin pen
10 unit SC DAILY
Acid Gone Antacid 95-358 mg/15 mL Suspension
15 ml PO DAILYPRN PRN (Reason: acid)
olanzapine 15 mg Tablet
30 mg PO HS
albuterol sulfate 90 mcg/actuation Hfa Aerosol Inhaler
2 puff INHALATION R Q4HPRN PRN (Reason: copd)
Novolin R FlexPen 100 unit/mL (3 mL) Insulin Pen
3 - 14 sliding scale dose SC MEALS HS
Patient Comments:
09/13/2023: Sliding Scale, if 100-150= 3; 151-200= 6; 201-250= 9; 251-300= 12; 301-350= 14; <350 call office
quetiapine 50 mg Tablet
50 mg PO HS
guaifenesin 600 mg Tablet Extended Release 12hr
600 mg PO BID
amoxicillin-pot clavulanate 875-125 mg tablet
1 tab PO BID 5 Days Qty: 10 0RF
Referrals:
Rubio Edwards DO [Family Provider] - Call in 1-3 days for appt
Activity Restrictions/Additional Instructions:
Continue nasal cannula oxygen as prescribed at 2 to 4 L as needed to maintain pulse ox greater than 90.
Increase ipratropium/albuterol nebulizers, 3 mL every 4 hours as needed for shortness of breath/hypoxia.
Interventions
Interventions:
*Risk Screen - Suicide Last Done: 09/25/23 23:14
*General Assessment Last Done: 09/25/23 23:14
*Neglect/Abuse Screening Last Done: 09/25/23 23:14
*ED COVID-19 Vaccine History Last Done: 09/25/23 23:14
ED- Cardiac Assessment Last Done: 09/25/23 23:14
ED- Pulmonary Assessment Last Done: 09/25/23 23:14
Discharge Date and Time
Print Language: CYMRO
== END 2023-09-26 09:37 ==
LOC: EMR 23:05
PROVIDERS: Student in an Organized Health Care Education/Training Program; EMERGENCY PHYSICIAN Emergency Medicine; FAMILY PHYSICIAN Family Medicine
DX: J44.1 Chronic obstructive pulmonary disease with (acute) exacerbation (principal); J69.0 Pneumonitis due to inhalation of food and vomit; Z87.891 Personal history of nicotine dependence
CPT/HCPCS: 99285; 71045; 80053; 83880; 84145; 84484; 85025; 93005

== ENCOUNTER 2023-09-27 13:21 | Inpatient (IN) | payer MEDICARE, SELFPAY ==
[2023-09-27] VITALS (17 sets, daily range): BP systolic 91–134; BP diastolic 49–87; PULSE 2–81
--- NOTE | 2023-09-27 09:27 | ED.GENMED ---
History of Present Illness
<Gala Ortiz PA-C - Last Filed: 09/27/23 13:44>
General
Chief Complaint: Breathing Problem
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
Exam Limitations: developmental stage
Time Seen by Provider: 09/27/23 09:22
Nursing documentation reviewed up to this point in time: agreed with
History of Present Illness
History of Present Illness:
pt is a 63 y/o M with h/o COPD with chronic hypercapnea and hypoxia, o2 dependent 2L NC chronically with h/o suspected aspiration pneumonia and multiple ED visits for cough/hypoxia
was here recently 2 days ago for same, cough, rhonchi, hypoxia, wheezing
he had reassuring work up, no fever, neg wbc, cxr with bibasilar opacities which could be aspiration which pt had history of
his procal was neg
he was discharged back to facility without steorids or abx as it was felt that his symptoms were stable,chronic and well controlled
pt apparently for the facility staff today seemed more distress and 'out of it' more than his typical which waxes and wanes due to his chronic schizophrenia, but they checke dhis pulse ox which was in the 80s
pt was wheezing and tachypneic forEMS
they gave 1 duo and 1 albuterol neb and bumped pt up to 6 L and he is more comfortable
pt constantly asks for coffee or water which has been an ongoing request when i see old discharge summaries
stahl hsad speech/swallow eval in the past
pt has pain in his abdomen but not chest
Past History
<Gala Ortiz PA-C - Last Filed: 09/27/23 13:44>
Past History
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 Limited vision on left eye. )
ED Past Surgical History: None
Social History
Tobacco: Former smoker
Alcohol: None
Drug: None
Personal: Single
Living: alf
Employment: Disabled
Family History
Family History: Other (Reviewed and noncontributory)
Phy Exam
<Gala Ortiz PA-C - Last Filed: 09/27/23 13:44>
Physical Exam
Physical Exam:
GENERAL: Alert , mild resp distress
EYE: pupils equal and reactive
NECK: Supple
ENT: o/p clr, mmm.
CARDIAC: Regular rate and rhythm .
LUNGS: tachypneic, wheezing, rales right side; tight
ABDOMEN: Soft, without focal tenderness, no r/g, no cvat, normal bowel sounds
NEUROLOGICAL: Alert and oriented, no focal neuro deficits
SKIN: Warm and dry, skin intact.
MUSCULOSKELETAL: No edema, well perfused. neg cristopher's sign
PSYCH: developmental delay/psych
Scores
<Gala Ortiz PA-C - Last Filed: 09/27/23 13:44>
Heart Failure Risk
Heart Failure Risk Score: Not Applicable
Course
<Gala Ortiz PA-C - Last Filed: 09/27/23 13:44>
Orders/Labs/Results
Orders:
Orders
09/27/23 09:22
EKG [Electrocardiogram (*1)] Urgent
Reason for Study: Shortness of Breath
EKG- Treatment ONCE
09/27/23 09:23
Dexamethasone Sod Phosphate [Decadron] 20 mg .ROUTE .STK-MED ONE
Ipratropium/Albuterol Sulfate [Duoneb] 3 ml .ROUTE .STK-MED ONE
09/27/23 09:24
Rectal Temp- Treatment ONCE
Dexamethasone Sod Phosphate [Decadron] 10 mg IV NOW STA
Ipratropium/Albuterol Sulfate [Duoneb] 3 ml INH R NOW STA
CR Chest - 2 Views Urgent
Comment:
Reason For Exam: sob, wheezing, cough, fever
09/27/23 09:27
Complete Blood Count/With Diff Urgent
Comprehensive Metabolic Panel Urgent
Lactic Acid Q4H
Comment: CANCEL 2nd LACTIC ACID IF 1st LACTIC ACID IS LESS THAN 2
Manual Differential Urgent
NT-proBNP Urgent
Procalcitonin Urgent
PCT Algorithmm Indication: Respiratory
Troponin I Urgent
Blood Culture Q30M
TUSHAR Source: Blood/Venous
Specimen Description:
Influenza A+B Rapid Molecular Urgent
TUSHAR Source: Nasal Swab
Specimen Description:
09/27/23 09:38
Acetaminophen [Tylenol] 650 mg PO NOW STA
09/27/23 09:41
COVID-19 Antigen Urgent
Source: Nasal Swab
09/27/23 Lunch
NPO
Allow oral meds: No
Allow clear liquids: No
NPO with Ice Chips: No
09/27/23 10:02
Blood Culture Q30M
TUSHAR Source: Blood/Venous
Specimen Description:
09/27/23 10:06
Piperacillin/Tazo 4.5 Gram [Zosyn] 4.5 gram in 100 ml IV NOW
09/27/23 10:52
ABG [Arterial Blood Gas] Urgent
%Oxygen/Room Air: 40
09/27/23 10:57
Vancomycin [Vancocin] 2,000 mg 0.9% Sodium Chloride 500 ml [Nss] 500 ml IV NOW
09/27/23 12:37
Admit/Transfer Patient As Directed
Co-Sign Provider:
Level of Care: Inpatient admission
Assign to:: IMU- Intermediate Care
Physician / Group: Tay
Diagnosis: Acute hypoxic and hypercapnic respiratory failure ; pneumonia
Reason for Hospitalization: see progress note
Expected length of stay greater than two midnights?: Yes
ELOS- Estimated Length of Stay in days: 4
I certify the patient meets the requirements for IP care: Yes
09/27/23 12:39
Code Status As Directed
Resuscitation Status: Full Code
09/27/23 14:30
Cefepime HCl [Maxipime] 1,000 mg IV Q8H
Dextrose 50%-Water [Dextrose 50% Syringe] 12.5 grams IV [id number] PRN
Glucagon [GlucaGen] 1 mg IM PRN PRN
HydrALAZINE [Apresoline] 5 mg IV Q4HPRN PRN
MetroNIDAZOLE 500 MG/100 ML [Flagyl 500 mg] 100 ml IV Q8H
VANCOMYCIN Pharmacy to Dose [VANCOCIN Pharmacy to Dose] 1 each Pharmacy To Prepare [Call Pharmacy To Prepare] 0 ml IV PER PROTOCOL
09/27/23 14:30
PULMONARY CONSULT Routine
Consulting Provider: Troy Daly
Was physician already notified: Yes
Reason for consult: Acute hypoxic/hypercapnic respiratory failure
Activity As Directed
Activity Level: As Tolerated
Bedside Glucose Monitoring As Directed
Frequency: AC&HS
Additional Instructions:: Change to q6h if pt on TPN, tube feeding or not eating
I&O [Intake/ Output] As Directed
Frequency: q12h
Speech Therapy Eval & Treat Routine
DX Deep Vein Thrombosis Video Routine
09/27/23 14:58
ABG [Arterial Blood Gas] Routine
%Oxygen/Room Air: Current settings
09/27/23 16:30
Insulin Aspart Corrective Low [Novolog Flexpen-Low Resistance] See Protocol SC AC
09/27/23 18:00
Enoxaparin Sodium [Lovenox] 40 mg SC QPM
09/28/23 06:00
Glycohemoglobin (HgbA1c) IN AM
Abnormal Lab Results
09/27/23 09/27/23
09: 10:52
WBC 3.9 L 10^3/uL
(4.8-10.8)
RBC 3.51 L 10^6/uL
(4.70-6.10)
Hgb 11.1 L g/dL
(13.0-18.0)
Hct 35.2 L %
(39.0-52.0)
MCV 100.3 H fL
(80.0-94.0)
MCH 31.6 H pg
(27.0-31.0)
MCHC 31.5 L g/dL
(33.0-37.0)
MPV 10.9 H fL
(7.4-10.4)
Band Neutrophils 9 H %
(0-3)
pH 7.32 L
(7.35-7.45)
pCO2 70 H mmHg
(35-48)
pO2 64 L mmHg
(83-108)
HCO3 36.1 H mmol/L
(21-28)
ABG O2 Sat (Measured) 92.8 L %
(94-98)
Carbon Dioxide 38 H mmol/L
(22-30)
Creatinine 0.6 L mg/dL
(0.7-1.3)
Glucose 151 H mg/dl
(70-99)
Total Protein 5.8 L g/dl
(6.3-8.2)
Albumin 3.2 L g/dl
(3.5-5.0)
09/27/23 09:27
09/27/23 09:27
Vital Signs
Initial and Last Documented VS:
Initial Vital Signs
Temp Pulse Resp Pulse Ox
99.7 F 102 20 92
09/27/23 09:19 09/27/23 09:19 09/27/23 09:19 09/27/23 09:19
Last Documented Vital Signs
Temp Pulse Resp BP Pulse Ox
101.6 F H 80 20 126/71 91
09/27/23 09:39 09/27/23 13:30 09/27/23 13:30 09/27/23 13:00 09/27/23 13:39
<Guanaco Garcia, DO - Last Filed: 09/27/23 15:07>
Orders/Labs/Results
Orders:
Orders
09/27/23 09:22
EKG [Electrocardiogram (*1)] Urgent
Reason for Study: Shortness of Breath
EKG- Treatment ONCE
09/27/23 09:23
Dexamethasone Sod Phosphate [Decadron] 20 mg .ROUTE .STK-MED ONE
Ipratropium/Albuterol Sulfate [Duoneb] 3 ml .ROUTE .STK-MED ONE
09/27/23 09:24
Rectal Temp- Treatment ONCE
Dexamethasone Sod Phosphate [Decadron] 10 mg IV NOW STA
Ipratropium/Albuterol Sulfate [Duoneb] 3 ml INH R NOW STA
CR Chest - 2 Views Urgent
Comment:
Reason For Exam: sob, wheezing, cough, fever
09/27/23 09:27
Complete Blood Count/With Diff Urgent
Comprehensive Metabolic Panel Urgent
Lactic Acid Q4H
Comment: CANCEL 2nd LACTIC ACID IF 1st LACTIC ACID IS LESS THAN 2
Manual Differential Urgent
NT-proBNP Urgent
Procalcitonin Urgent
PCT Algorithmm Indication: Respiratory
Troponin I Urgent
Blood Culture Q30M
TUSHAR Source: Blood/Venous
Specimen Description:
Influenza A+B Rapid Molecular Urgent
TUSHAR Source: Nasal Swab
Specimen Description:
09/27/23 09:38
Acetaminophen [Tylenol] 650 mg PO NOW STA
09/27/23 09:41
COVID-19 Antigen Urgent
Source: Nasal Swab
09/27/23 Lunch
NPO
Allow oral meds: No
Allow clear liquids: No
NPO with Ice Chips: No
09/27/23 10:02
Blood Culture Q30M
TUSHAR Source: Blood/Venous
Specimen Description:
09/27/23 10:06
Piperacillin/Tazo 4.5 Gram [Zosyn] 4.5 gram in 100 ml IV NOW
09/27/23 10:52
ABG [Arterial Blood Gas] Urgent
%Oxygen/Room Air: 40
09/27/23 10:57
Vancomycin [Vancocin] 2,000 mg 0.9% Sodium Chloride 500 ml [Nss] 500 ml IV NOW
09/27/23 12:37
Admit/Transfer Patient As Directed
Co-Sign Provider:
Level of Care: Inpatient admission
Assign to:: IMU- Intermediate Care
Physician / Group: Jasvir
Diagnosis: Acute hypoxic and hypercapnic respiratory failure ; pneumonia
Reason for Hospitalization: see progress note
Expected length of stay greater than two midnights?: Yes
ELOS- Estimated Length of Stay in days: 4
I certify the patient meets the requirements for IP care: Yes
09/27/23 12:39
Code Status As Directed
Resuscitation Status: Full Code
09/27/23 14:30
Cefepime HCl [Maxipime] 1,000 mg IV Q8H
Dextrose 50%-Water [Dextrose 50% Syringe] 12.5 grams IV [id number] PRN
Glucagon [GlucaGen] 1 mg IM PRN PRN
HydrALAZINE [Apresoline] 5 mg IV Q4HPRN PRN
MetroNIDAZOLE 500 MG/100 ML [Flagyl 500 mg] 100 ml IV Q8H
VANCOMYCIN Pharmacy to Dose [VANCOCIN Pharmacy to Dose] 1 each Pharmacy To Prepare [Call Pharmacy To Prepare] 0 ml IV PER PROTOCOL
09/27/23 14:30
PULMONARY CONSULT Routine
Consulting Provider: Troy Daly
Was physician already notified: Yes
Reason for consult: Acute hypoxic/hypercapnic respiratory failure
Activity As Directed
Activity Level: As Tolerated
Bedside Glucose Monitoring As Directed
Frequency: AC&HS
Additional Instructions:: Change to q6h if pt on TPN, tube feeding or not eating
I&O [Intake/ Output] As Directed
Frequency: q12h
Speech Therapy Eval & Treat Routine
DX Deep Vein Thrombosis Video Routine
09/27/23 14:58
ABG [Arterial Blood Gas] Routine
%Oxygen/Room Air: Current settings
09/27/23 16:30
Insulin Aspart Corrective Low [Novolog Flexpen-Low Resistance] See Protocol SC AC
09/27/23 18:00
Enoxaparin Sodium [Lovenox] 40 mg SC QPM
09/28/23 06:00
Glycohemoglobin (HgbA1c) IN AM
Abnormal Lab Results
09/27/23 09/27/23
09:27 10:52
WBC 3.9 L 10^3/uL
(4.8-10.8)
RBC 3.51 L 10^6/uL
(4.70-6.10)
Hgb 11.1 L g/dL
(13.0-18.0)
Hct 35.2 L %
(39.0-52.0)
MCV 100.3 H fL
(80.0-94.0)
MCH 31.6 H pg
(27.0-31.0)
MCHC 31.5 L g/dL
(33.0-37.0)
MPV 10.9 H fL
(7.4-10.4)
Band Neutrophils 9 H %
(0-3)
pH 7.32 L
(7.35-7.45)
pCO2 70 H mmHg
(35-48)
pO2 64 L mmHg
(83-108)
HCO3 36.1 H mmol/L
(21-28)
ABG O2 Sat (Measured) 92.8 L %
(94-98)
Carbon Dioxide 38 H mmol/L
(22-30)
Creatinine 0.6 L mg/dL
(0.7-1.3)
Glucose 151 H mg/dl
(70-99)
Total Protein 5.8 L g/dl
(6.3-8.2)
Albumin 3.2 L g/dl
(3.5-5.0)
09/27/23 09:27
09/27/23 09:27
Vital Signs
Initial and Last Documented VS:
Initial Vital Signs
Temp Pulse Resp Pulse Ox
99.7 F 102 20 92
09/27/23 09:19 09/27/23 09:19 09/27/23 09:19 09/27/23 09:19
Last Documented Vital Signs
Temp Pulse Resp BP Pulse Ox
101.6 F H 80 20 126/71 91
09/27/23 09:39 09/27/23 13:30 09/27/23 13:30 09/27/23 13:00 09/27/23 13:39
Karollt;Gala Ortiz PA-C - Last Filed: 09/27/23 13:44>
MDM/Problems Addressed
Differential Diagnosis Includes:
PNA, PE, CHF, COPD
MDM/Problems Addressed:
63 y/o M from a [facility], schizophrenia, COPD with chronic hypercapnea and hypoxia on 2L o2 baseline; came in 2 days ago for cough, hypoxia to 80s, cxr showed bibasilar opacities but he had no fever, normal wbc, neg procal so no abx (he
apparentoly chronically has some aspiration pneumoinitis picture)
inc work of breathing today, slightly confused; febrile, hypoxic on his 2L to 80s, ems gave 2 nebs and bumped him to 6L and he was 92% on arrival, very wheezy, rhonchorous, tachypneic; normotensive; lactic normal, cxr indep reviewed shows
significant worsening of RLL pna; pt requires admission for stabilitzation, will receive vanc/zosyn;
after a 3rd neb and steroids he is still satting 89% on 5-6L which seems to be while he sleeps (pt has sleep apnea) and so i called resp, ABG shows himt o be hpyoxic and hypercapneic worse than his typical; placed on bipap
<Gala Ortiz PA-C - Last Filed: 09/27/23 13:44>
*Critical Care Note
Total Time (30-74mins, 75-104mins- exclusive of procedures): Not Applicable
<Guanaco Garcia DO - Last Filed: 09/27/23 15:07>
*Pulse Oximetry
Patient hypoxic: yes
*EKG
Interpreted by ED Provider?: Yes
EKG Intrepretation Date: 09/27/23
EKG Intrepretation Time: 09:32
Interpretation: abnormal
Comparison EKG: changes noted
Heart Rate: 94
Rate: normal
Rhythm: sinus
Brilliant: right axis deviation
Interval: normal interval
QRS Pattern: normal QRS
Ischemia: non-specific ST changes
*Scale Installer Interpretation
Rate: normal
Interpretation: normal
Heart Rate: 95
Rhythm: sinus
*Critical Care Note
Total Time (30-74mins, 75-104mins- exclusive of procedures): 30
comment:
Critical care statement: A total of 30 minutes of critical care time was provided for this patient. This includes management of unstable vital signs, evaluation of the patient at bedside, reviewing the patient's pertinent medical records, discussion
with consultants, review of old EKGs and review of pertinent medical records. This time with separate from time utilized to perform the aforementioned documented procedures
ED Attending Note
<Gala Ortiz PA-C - Last Filed: 09/27/23 13:44>
-
Portions of this chart may have been created with voice recognition software.� Occasional wrong word or��sound alike� substitutions may have occurred due to the inherent limitations of voice recognition software.
<Guanaco Garcia DO - Last Filed: 09/27/23 15:07>
ED Attending Note
Patient seen and examined by attending physician: Yes
ED Attending Note:
I have reviewed and agree with patient treatment plan by Scarlet Ortiz. My exam revealed 63-year-old male in moderate respiratory distress, but improving with repositioning. Suspect pneumonia and sleep apnea causing hypoxia. Will add BiPAP, admit
to hospitalist.
Discharge Plan
Departure
Patient Disposition: Admit
Date of Disposition: 09/27/23
Time of Disposition: 10:13
Admit to: IMU
Presentation/result/management discussed w/ accepting MD/DO: Hospitalist
Condition: Serious
Covid-19: Negative COVID-19
Discharge Problem:
COPD (chronic obstructive pulmonary disease), Pneumonia, Hypoxia
Interventions
Interventions:
*Risk Screen - Suicide Last Done: 09/27/23 09:39
*General Assessment Last Done: 09/27/23 14:41
*Neglect/Abuse Screening Last Done: 09/27/23 09:39
ED- Fall Risk Assessment Last Done: 09/27/23 14:41
*ED COVID-19 Vaccine History Last Done: 09/27/23 14:41
*Nursing Disposition Last Done: 09/27/23 14:41
ED- Cardiac Assessment Last Done: 09/27/23 13:34
ED- Pulmonary Assessment Last Done: 09/27/23 13:34
Discharge Date and Time
Discharge Date/Time: 09/27/23 14:42
[2023-09-27] MEDS: DUONEB 3 ML INH (09:34)
[2023-09-27 09:44] LABS: Hematocrit 35.2 % (39.0-52.0); Hemoglobin 11.1 g/dL (13.0-18.0); Mean Corp Hgb Conc. 31.5 g/dL (33.0-37.0); Mean Corpuscular Hgb 31.6 pg (27.0-31.0); Mean Corpuscular Volume 100.3 fL (80.0-94.0); Mean Platelet Volume 10.9 fL (7.4-10.4); Platelet Count 148 10^3/uL (130-400); Red Blood Cell Count 3.51 10^6/uL (4.70-6.10); Red Cell Dist. Width 13.6 % (11.5-14.5); White Blood Cell Count 3.9 10^3/uL (4.8-10.8)
[2023-09-27] MEDS: TYLENOL 650 MG PO (09:52)
[2023-09-27] MEDS: DECADRON 10 MG IV (09:52)
[2023-09-27 10:01] LABS: Lactic Acid 1.1 mmol/L (0.7-2.0)
[2023-09-27 10:01] LABS: COVID-19 Antigen Negative (Negative)
[2023-09-27 10:05] LABS: NT-proBNP 400 pg/ml; Troponin I < 0.012 ng/ml
[2023-09-27] MEDS: ZOSYN 100 IV (10:14)
[2023-09-27 10:23] LABS: Procalcitonin < 0.05 ng/ml (0.0-0.25)
[2023-09-27 10:35] LABS: ALT (SGPT) 14 U/L (0-50); AST (SGOT) 17 U/L (17-59); Albumin 3.2 g/dl (3.5-5.0); Alkaline Phosphatase 63 U/L (38-126); Blood Urea Nitrogen 15 mg/dl (9-20); Calcium 9.2 mg/dl (8.4-10.2); Carbon Dioxide 38 mmol/L (22-30); Chloride 103 mmol/L (98-107); Glucose 151 mg/dl (70-99); Potassium 4.1 mmol/L (3.5-5.1); Sodium 143 mmol/L (135-145); Total Bilirubin 0.4 mg/dl (0.2-1.3); Total Protein 5.8 g/dl (6.3-8.2); eGFR > 60.00
[2023-09-27 10:41] LABS: Absolute Neutrophils -Man Diff 2.5 10^3/uL (1.4-6.5); Band Neutrophils 9 % (0-3); Eosinophils 1 % (0-6); Lymphocytes 26 % (20-51); Monocytes 7 % (2-9); Normal RBC Morphology Yes; Platelets Checked Yes; Segmented Neutrophils 57 % (42-75); Total Cells Counted 100
[2023-09-27 11:15] LABS: HCO3 36.1 mmol/L (21-28); O2 Saturation % 92.8 % (94-98); PCO2 70 mmHg (35-48); PO2 64 mmHg (83-108); pH 7.32 (7.35-7.45)
[2023-09-27] MEDS: VANCOCIN 540 MG IV (11:25)
--- NOTE | 2023-09-27 13:00 | HPS.HSE ---
Family Physician
-
Family Physician: INTERVIEWE UNKNOWN - PT NOT
Chief Complaint
-
Sent in because of change in mental status, decreased pulse ox to 86 with 4 L of oxygen. He was coughing, tremulous and tachypneic. Although his history from transfer sheet from the behavioral health unit he lives.
History of Present Illness
Patient currently with depressed mental status. Arousable to painful stimuli and a little bit to verbal stimulation. He is on BiPAP.
History is from the transfer sheet.
Known to have COPD on 4 L at home. Schizophrenia lives in a behavioral care unit.
He is on mechanical soft diabetic diet.
He was here yesterday in the ER and there was a concern about progression of bilateral basal opacities on CXR.
Is febrile here. Hemodynamically stable.
ABG showed pH of 7.32 and pCO2 of 70. Placed on BiPAP.
Medical History
Past Medical History
Past Medical History: Reports Other
Additional Past Medical History:
COPD on Home 2 L
HX chronic hypoxic hypercarbic RF .
GERD
Hypothyroidism
HTN
schizophrenic
anemia
renal calculi
BPH
polydipsia
epilepsy
DM
legally blind
Glaucoma
COVID
Past Surgical History: Reports Cholecystectomy and Other
Social History
Unable to obtain full social history at this time due to: Other (developmental delay HX )
Tobacco: Former Smoker
Alcohol: None
Living: Other ([facility] health unit)
Family History
Family History: Not pertinent
Allergies / Home Medications
Allergies reflects when Allergies were last updated in [employer].
Home Medications with original date entered in [employer]
Allergy/Medication List:
Allergies
Allergy/AdvReac Type Severity Reaction Status Date / Time
No Known Allergies Allergy Verified 06/17/23 01:54
Home Medications
sitagliptin phosphate 100 mg tablet (Januvia) 100 mg PO DAILY Diabetes 10/12/18
fexofenadine 180 mg tablet 180 mg PO DAILY Allergies 07/08/19
levothyroxine 200 mcg tablet 200 mcg PO DAILY AT 0700 Thyroid 07/08/19
acetaminophen 325 mg tablet (Tylenol) 650 mg PO Q4HPRN PRN mild pain 04/24/23
atorvastatin 20 mg tablet 20 mg PO DAILY High Cholesterol 04/24/23
ipratropium 0.5 mg-albuterol 3 mg (2.5 mg base)/3 mL nebulization soln 3 ml inhalation R Q4HPRN PRN SOB/ wheezing 04/24/23
polyethylene glycol 3350 17 gram oral powder packet (Miralax) 17 g PO DAILY PRN constipation 04/25/23
albuterol sulfate 90 mcg/actuation aerosol inhaler (Ventolin HFA) 1 - 2 puff inhalation R Q4HPRN PRN shortness of breath/wheezing 06/17/23
aluminum hydrox-magnesium carb 95 mg-358 mg/15 mL oral suspension (Acid Gone Antacid) 15 ml PO DAILYPRN PRN acid 06/17/23
atenolol 25 mg tablet 25 mg PO DAILY Blood Pressure 06/17/23
cyanocobalamin (vitamin B-12) 500 mcg tablet 500 mcg PO DAILY Supplement 06/17/23
divalproex 250 mg tablet,delayed release 250 mg PO BID@0800,1999 mental health 06/17/23
divalproex 500 mg tablet,delayed release 1,000 mg PO BID@0800,1999 mental health 06/17/23
dorzolamide 22.3 mg-timolol 6.8 mg/mL eye drops 1 drp BOTH EYES BID@08 Eye Condition 06/17/23
fluticasone fur. 100 mcg-umeclid 62.5 mcg-vilant 25 mcg inhalat.powder (Trelegy Ellipta) 1 inh inhalation R DAILY Lung/Breathing Issues 06/17/23
hydroxyzine pamoate 50 mg capsule 50 mg PO DAILY@1999 Mental Health/Anxiety 06/17/23
iloperidone 12 mg tablet (Fanapt) 12 mg PO DAILY@1999 mental health 06/17/23
insulin glulisine U-100 100 unit/mL subcutaneous pen (Apidra SoloStar U-100 Insulin) 0 sliding scale dose SC DIRECTED Diabetes 06/17/23
lisinopril 2.5 mg tablet 2.5 mg PO DAILY Blood pressure 06/17/23
metformin 500 mg tablet 500 mg PO BID@0800,1999 Diabetes 06/17/23
olanzapine 20 mg tablet 20 mg PO DAILY@1999 mental health 06/17/23
prednisone 10 mg tablet See Rx Instructions .Route .COMPLEX #30 tabs 06/20/23
Review of Systems
-
Unable to obtain full review of systems at this time due to: Other (Due to his current mentation)
Physical Exam
Vital Signs
Vital Signs
Temp Pulse Resp BP Pulse Ox
101.6 F H 86 25 112/68 93
09/27/23 09:39 09/27/23 11:15 09/27/23 11:15 09/27/23 11:10 09/27/23 09:57
Physical Exam
General: No Apparent Distress
Respiratory: Crackles (Rt lower zone); No Non Labored Respirations (Tachypnea) or Accessory Resp Muscle Use
Cardiac: S1/S2 and Regular Rhythm
GI: Soft
Neuro: No Awake or Alert
Psych: Calm
Laboratory Results
-
09/27/23 09:27
09/27/23 09:27
Laboratory Results
pH 7.32 (7.35-7.45) L 09/27/23 10:52
pCO2 70 mmHg (35-48) H 09/27/23 10:52
pO2 64 mmHg (83-108) L 09/27/23 10:52
HCO3 36.1 mmol/L (21-28) H 09/27/23 10:52
Lactic Acid 1.1 mmol/L (0.7-2.0) 09/27/23 09:27
Total Bilirubin 0.4 mg/dl (0.2-1.3) 09/27/23 09:
AST 17 U/L (17-59) 09/27/23 09:
ALT 14 U/L (0-50) 09/27/23 09:
Alkaline Phosphatase 63 U/L (38-126) 09/27/23 09:
Troponin I < 0.012 ng/ml 09/27/23 09:
Data Reviewed
-
Diagnostic Radiology: Report Reviewed by me (cxr)
Lab Data: Labs Reviewed by me
Impression/Plan
-
Altered mental status secondary to encephalopathy from hypercapnic respiratory failure.
Acute hypoxic and hypercapnic respiratory failure. Patient normally on 4 L of oxygen via nasal cannula for chronic hypoxic respiratory insufficiency. Today's ABG shows hypercapnia. He is known to have COPD. Currently not actively bronchospastic
but has bilateral right more than left basilar opacities concerning for pneumonia. Started on BiPAP. Repeat ABG in half an hour to evaluate pH. Currently getting admitted to IMU but might need ICU depending on response to BiPAP.
Bilateral right more than left basilar opacities concerning for pneumonia. I do see procalcitonin normal but with elevated white count and clinical concern of aspiration nodules procalcitonin still is applicable in this setting. It is studied in
the community-acquired pneumonia. Will start on empirical antibiotics including vancomycin, cefepime and Flagyl. Will keep him n.p.o. Evaluate speech therapy once he is more awake.
Fever with tachypnea and bandemia ongoing and with sepsis.
COPD-patient currently not actively bronchospastic. Will discuss with pulmonary regarding role of steroids. Continue with his home nebulizer treatments.
Hypertension-hold oral medications till he is more awake and swallow function is okay
Diabetes mellitus-on insulin-hold on follow-up sliding scale insulin
Schizophrenia-resume his home medications once more awake and able to take them.
Full code
DVT prophylaxis with Lovenox
--- NOTE | 2023-09-27 13:56 | CON.PUL ---
Consultation
Consultation Request
Date/Time Consultation Requested: 09/27/2023
Date/Time Consultation Performed: 09/27/2023
Requesting Provider: Dr. Tay
Performing Provider: Dr. Troy Addison
Reason for Consultation: Acute decompensated hypercapnic respiratory failure
Medical History
-
History of Present Illness:
63-year-old man with history of COPD, on 4 L of oxygen, history of schizophrenia. He lives at a [facility].
Brought into the emergency room on 09/27/2023 with change in mental status and hypoxemia. Apparently patient was coughing, tremulous, tachypneic. Found to be in hypercapnic respiratory failure requiring BiPAP in the emergency room. Has some degree
of altered mental status.
We were consulted for evaluation. Chest x-ray showed bilateral infiltrates suspicious for pneumonia. Patient unable to provide history patient known by Dr. Addison. Last time seen on 09/06/2023. He was doing well..
He was treated for pneumonia with good response. He has been using nebulizers [id number]. Not able to perform inhaler maneuver.
He was due for repeat CAT scan to document resolution of the infiltrate.
Past Medical History
Past Medical History: Other (See assessment and plan section)
Social History
Tobacco: Former Smoker
Living: Other (At a [facility])
Family History
Family History: Unable to Obtain
Allergies / Home Medications
Allergies
Allergy/AdvReac Type Severity Reaction Status Date / Time
No Known Allergies Allergy Verified 09/25/23 23:14
Home Medications
�Medication �Instructions �Recorded �Confirmed �Last Taken �Type
sitagliptin phosphate 100 mg 100 mg PO DAILY Diabetes 10/12/18 09/27/23 09/26/23 History
tablet (Januvia)
fexofenadine 180 mg tablet 180 mg PO DAILY Allergies 07/08/19 09/27/23 09/26/23 History
levothyroxine 200 mcg tablet 200 mcg PO DAILY@0600 Thyroid 07/08/19 09/27/23 09/27/23 History
acetaminophen 325 mg tablet 650 mg PO Q4HPRN PRN mild pain 04/24/23 09/27/23 09/24/23 History
(Tylenol)
atorvastatin 20 mg tablet 20 mg PO DAILY High Cholesterol 04/24/23 09/27/23 09/26/23 History
ipratropium 0.5 mg-albuterol 3 mg 3 ml inhalation R BID 04/24/23 09/27/23 09/26/23 History
(2.5 mg base)/3 mL nebulization Lung/Breathing Issues
soln
polyethylene glycol 3350 17 gram 17 g PO DAILYPRN PRN constipation 04/25/23 09/27/23 Unknown History
oral powder packet (Miralax)
cyanocobalamin (vitamin B-12) 500 500 mcg PO DAILY Supplement 06/17/23 09/27/23 09/26/23 History
mcg tablet
divalproex 250 mg tablet,delayed 250 mg PO BID@0800,1999 mental 06/17/23 09/27/23 09/26/23 History
release health
divalproex 500 mg tablet,delayed 1,000 mg PO BID@0800 mental 06/17/23 09/27/23 09/26/23 History
release health
metformin 500 mg tablet 500 mg PO BID@0800,1999 Diabetes 06/17/23 09/27/23 09/26/23 History
amlodipine 5 mg tablet 5 mg PO DAILY Blood Pressure 07/18/23 09/27/23 09/26/23 History
diltiazem HCl 120 mg 120 mg PO DAILY Heart 07/18/23 09/27/23 09/26/23 History
capsule,extended release 24 hr Disease/Condition
insulin glargine 100 unit/mL (3 10 unit SC DAILY Diabetes 07/18/23 09/27/23 09/26/23 History
mL) subcutaneous pen (Lantus
Solostar U-100 Insulin)
omeprazole 20 mg capsule,delayed 20 mg PO DAILY Gastrointestinal 07/18/23 09/27/23 09/26/23 History
release Issue
tamsulosin 0.4 mg capsule 0.4 mg PO HS Urinary Issue 07/18/23 09/27/23 09/26/23 History
albuterol sulfate 90 mcg/actuation 2 puff inhalation R Q4HPRN PRN copd 09/13/23 09/27/23 Unknown History
aerosol inhaler
aluminum hydrox-magnesium carb 95 15 ml PO DAILYPRN PRN acid 09/13/23 09/27/23 09/24/23 History
mg-358 mg/15 mL oral suspension
(Acid Gone Antacid)
insulin regular human 100 unit/mL 3 - 14 sliding scale dose SC ACHS 09/13/23 09/27/23 09/26/23 History
(3 mL) subcutaneous pen (Novolin R
FlexPen)
olanzapine 15 mg tablet 30 mg PO HS 09/13/23 09/27/23 09/26/23 History
quetiapine 50 mg tablet 50 mg PO HS 09/13/23 09/27/23 09/26/23 History
ipratropium 0.5 mg-albuterol 3 mg 3 ml inhalation R Q4HPRN PRN sob 09/27/23 09/27/23 09/26/23 History
(2.5 mg base)/3 mL nebulization
soln
Review of Systems
Vitals / Labs / Diagnostic Testing
Vital Signs
Temp Pulse Resp BP Pulse Ox
101.6 F H 80 20 126/71 91
09/27/23 09:39 09/27/23 13:30 09/27/23 13:30 09/27/23 13:00 09/27/23 13:39
Lab Data
09/27/23 09:27
09/27/23 09:27
Laboratory Results
09/27/23
10:52
pH 7.32 L
pCO2 70 H
pO2 64 L
HCO3 36.1 H
O2 Delivery Level Not Reportable
Microbiology
09/27/23 09:27 Nasal Swab Influenza Types A & B (CELINA) - Final
Negative for Influenza A & B, NAAT
Negative results must be combined with clinical observations
and patient history.
Nucleic Acid Amplification test (NAAT)performed on the
[employer] NOW platform.
Diagnostic Testing:
Assessment
-
Acute on chronic hypercapnic respiratory failure-possibly decompensated due to pneumonia.
AB.32/64. Acute on chronic hypercapnic respiratory failure.
Abnormal chest x-ray: Bibasilar infiltrates suggestive of pneumonia.
Toxic metabolic encephalopathy secondary to above.
Conditions present prior to admission:
COPD on home 2 L
Follow-up with Dr. Addison: On DuoNeb/Pulmicort nebulizer-unable to perform inhaler maneuver.
Obstructive sleep apnea/obesity hypoventilation syndrome: Intolerant to CPAP.
Chronic hypoxic hypercarbic RF
Recurrent pneumonia.
L basilar infiltrate on CXR and CT June 2023, adm [facility], negative PCT, received ceftriaxone and azithromycin for 2 d and atbs were d/c
Mild
GERD
Hypothyroidism
HTN
Schizophrenia
Anemia
Nephrolithiasis
BPH
Polydipsia
Sz
T2DM
Legally blind
Glaucoma
COVID
Cholecystectomy
Former Smoker
NHR
Disabled
Assessment and plan:
Agree with BiPAP therapy: Very close follow-up as the patient had altered mental status. If he does not respond quickly with improved mental status I suggest intubation.
Repeat ABG in the next 30 minutes-pending
On my exam 09/27/2023 at 2:55 PM. Coughing on demand. Appears to be more arousable. On BiPAP therapy. Will continue for now
Avoid sedatives
Continue DuoNebs
Continue Pulmicort
Agree with antibiotics
Unlikely able to produce phlegm at this point. Blood cultures were sent
-
Patient is known to have recurrent pneumonia. Aspiration has been suspected in the past despite negative speech evaluation.
Head of the bed elevation
N.p.o. for now
-
He has history of COPD: Currently not bronchospastic. COPD is moderate to severe.
Hold systemic corticosteroids-patient did receive 10 mg of Decadron in the emergency room.
Continue oxygen supplementation-maintain pulse ox above 88%.
Patient unable to perform inhaler maneuver he is chronically on DuoNeb/Pulmicort nebulizer-continue for now
-
Has history of obstructive sleep apnea/likely obesity hypoventilation given chronic hypercapnia-intolerant to CPAP.
Continue supplemental oxygen
Avoid sedatives
BiPAP while in the hospital.
-
Strict n.p.o. for now
A speech evaluation tomorrow
High risk situation. Will follow. Low threshold to transfer to the ICU if mental status worsens.
--- NOTE | 2023-09-27 15:12 | PHA.VAN.IN ---
Assessment
- Assessment
Renal Function: Appears similar to baseline
Concomitant Antimicrobials: cefepime, metronidazole
- Previous Dosing Experience
Previous Regimen: Vanc 1500mg Q12H
Date of Regimen: Apr 2023
Provided Trough of: 12.4
Provided AUC of: 475
Patient's SCR is: Similar to previous dosing experience
Patient's weight is: Similar to previous dosing experience
Regimen provided the following additional patient-specific PK:
Extrapolated Cmax (mcg/mL): 30.5 (peak drawn appr, ~1.3H after end of previous infusion)
Extrapolated Cmin (mcg/mL): 11.6 (trough drawn appropriately before 4th maintenance dose)
Calculated ke: 0.0917
Calculated half life (H): 7.6
Calculated Vd (L): 69 (~0.75 L/kg)
Calculated Vanc CL (ml/min): 105
AUC Dosing Plan
- Empiric Dosing
Initial / Loading Dose: 2000mg - 09/26 11:25
Maintenance Regimen: Vanc 1500mg Q12H starting 09/27 599 based on prior dosing experience above
- Monitoring
No levels ordered at this time: consider levels in next few days
MRSA Screen: Ordered per protocol
Pharmacokinetics Vancomycin I
- -
Patient Age: 63
Patient Sex: Male
Vancomycin Day #: 1
Indication: Pulmonary/Respiratory
Requesting Provider: Dr. Tay
Pertinent Antimicrobial Allergies:
NKDA
Height / Weight:
Height 5 ft 8 in
Actual Weight 88.4 kg
Pertinent Past Medical History: COPD (home O2)
- Vital Signs / Lab Results
Temp Pulse Resp BP Pulse Ox
97.4 F 80 20 126/71 91
09/27/23 15:10 09/27/23 13:30 09/27/23 13:30 09/27/23 13:00 09/27/23 13:39
Lab Results - Hematology
09/27/23
09:
WBC 3.9 L
Band Neutrophils 9 H
Lab Results - Chemistry
09/27/23
09:
BUN 15
Creatinine 0.6 L
Albumin 3.2 L
09/27/23 09/27/23
13:30
Lactic Acid 1.1 Cancelled
Microbiology Results
09/27/23 09:27 Influenza Types A & B (CELINA) - Final
Nasal Swab Negative for Influenza A & B, NAAT
Negative results must be combined with clinical observations
and patient history.
Nucleic Acid Amplification test (NAAT)performed on the
[employer] NOW platform.
[2023-09-27 15:13] LABS: B.E. 7.4 mmol/L; HCO3 35.7 mmol/L (21-28); O2 Saturation % 89.8 % (94-98); pH 7.31 (7.35-7.45)
[2023-09-27 15:15] LABS: PCO2 71 mmHg (35-48); PO2 59 mmHg (83-108)
[2023-09-27] MEDS: FLAGYL 500 MG 100 IV (16:19)
[2023-09-27] MEDS: MAXIPIME 1000 MG IV ×2 (16:22→21:32)
[2023-09-27] MEDS: STERILE WATER FOR INJECTION 10 ML IV ×2 (16:22→21:32)
[2023-09-27] MEDS: LOVENOX 40 MG SC (17:02)
[2023-09-27 17:21] LABS: Glucose - Point of Care 203 mg/dl (70-99)
[2023-09-27] MEDS: NOVOLOG FLEXPEN-LOW RESISTANCE 2 UNITS SC (17:38)
--- NOTE | 2023-09-27 18:06 | PTCARENOTE ---
see nursing assessment. pt from ED this afternoon. admitted to IMU. pt oriented to name and thats hes in hospital, otherwise didnt know the month/year or why hes here. pt lethargic. blood gases repeated by resp therapy this afternoon not improved.
bipap adjusted by resp therapist to 20/8 with 10 liters o2. current sat 95%. sinus rythym on monitor. resp therapist discussed abg results with dr Foster. iv antibiotics administered per order.
[2023-09-27] MEDS: PULMICORT 0.5 MG INH (19:55)
[2023-09-28] VITALS (12 sets, daily range): BP systolic 117–150; BP diastolic 68–95; PULSE 2–92; O2SAT 93–94
[2023-09-28] MEDS: FLAGYL 500 MG 100 IV ×3 (01:34→16:26)
[2023-09-28 03:40] LABS: Glucose - Point of Care 224 mg/dl (70-99)
[2023-09-28] MEDS: STERILE WATER FOR INJECTION 10 ML IV ×4 (05:06→21:22)
[2023-09-28] MEDS: MAXIPIME 1000 MG IV ×4 (05:06→21:22)
[2023-09-28 05:32] LABS: Glucose - Point of Care 248 mg/dl (70-99)
[2023-09-28] MEDS: NOVOLOG FLEXPEN-LOW RESISTANCE 2 UNITS SC (05:47)
[2023-09-28] MEDS: VANCOCIN 300 ML IV (05:48)
[2023-09-28] MEDS: VANCOCIN 300 MG IV (05:48)
--- NOTE | 2023-09-28 06:07 | PTCARENOTE ---
Pt able to tolerate bipap mask for most of the night. Took mask off himself at 05:00. Pt wide awake and talking. Placed on 2L NC satting in the mid 90s. Pt only oriented to self and unable to grasp the reason he's in the hospital. Continuously
reorienting pt. Bed alarm active. Resting in bed with call mullins in reach.
[2023-09-28] MEDS: PULMICORT 0.5 MG INH ×2 (08:12→20:42)
[2023-09-28 08:52] LABS: Glycohemoglobin (HgbA1c) 7.4 % (4.0-5.6)
--- NOTE | 2023-09-28 09:09 | PTOTSP ---
Dysphagia Evaluation
Patient with a history of mild oral/pharyngeal dysphagia on a video swallow study 06/07/2023. He is now admitted with respiratory failure, there is concern for RIGHT sided PNA, and has a history of recurrent PNA. He has acute on chronic risk factors
for dysphagia/aspiration (i.e., admitted with respiratory failure; COPD, schizophrenia, developmental delay, GERD).
Recommend:
1. IDDSI Level 6 Soft/Bite Sized, IDDSI Level 0 Thin Liquids
2. Full supervision, assist as needed
3. Medications 1 at a time in puree
4. Strategies: small single sips/bites, slow rate, intersperse liquids, reflux precautions
5. Oral care 3x daily
6. Video swallow study to objectively assess swallowing function. Cannot r/o aspiration bedside. Pt w/ chronic cough.
--- NOTE | 2023-09-28 09:38 | W.PN.PUL3 ---
Today's Communication / Plan
-
Continue Pulmicort
Continue DuoNebs
Acapella device
Increase activity
Wean down oxygen
Continue antibiotics
Modified diet, aspiration precautions.
Follow culture
Assessment
-
63-year-old man with history of COPD, known to Dr. Addison. Recurrent pneumonia with suspected aspiration. Readmitted with bilateral pneumonia, acute on chronic hypercapnic respiratory failure necessitating BiPAP. Transferred to intermediate care
unit, pulmonary consulted 09/27/2023 per
Acute on chronic hypercapnic respiratory failure-possibly decompensated due to pneumonia.
AB. Acute on chronic hypercapnic respiratory failure.
Abnormal chest x-ray: Bibasilar infiltrates suggestive of pneumonia.
Recurrent aspiration is strongly suspected.
Toxic metabolic encephalopathy secondary to above.
Conditions present prior to admission:
COPD on home 2 L
Follow-up with Dr. Addison: On DuoNeb/Pulmicort nebulizer-unable to perform inhaler maneuver.
Obstructive sleep apnea/obesity hypoventilation syndrome: Intolerant to CPAP.
Chronic hypoxic hypercarbic RF
Recurrent pneumonia.
L basilar infiltrate on CXR and CT June 2023, adm [facility], negative PCT, received ceftriaxone and azithromycin for 2 d and atbs were d/c
Mild
GERD
Hypothyroidism
HTN
Schizophrenia
Anemia
Nephrolithiasis
BPH
Polydipsia
Sz
T2DM
Legally blind
Glaucoma
COVID
Cholecystectomy
Former Smoker
NHR
Disabled
Assessment and plan:
Clinically improved 09/28/2023
Mental status back to baseline
On low rate supplemental oxygen 2 L.
Continue nocturnal BiPAP and with naps.
Avoid sedatives
Slightly bronchospastic on exam 09/28/2023. Not in distress.
Continue DuoNebs-Home regimen
Continue Pulmicort-Home regimen
Agree with antibiotics, to cover for aspiration.
speech evaluation from 09/28/2023: Noted. Mild oropharyngeal dysphagia on video barium swallow 06/07/2023. Diet has been modified. Suspect at his facility he does not follow diet modifications.
-
In the past has not been able to produce phlegm.
Blood cultures were sent, currently negative
Afebrile without leukocytosis
-
Patient is known to have recurrent pneumonia. Aspiration has been suspected in the past despite negative speech evaluation.
Head of the bed elevation
Advance diet per speech therapy.
May need to consider video barium swallow at some point
-
He has history of COPD: COPD is moderate to severe.
Last time seen by Dr. Addison early 09/2023-patient was doing well. He was due to repeat a CT of the chest to document resolution of prior pneumonia per
Continue to hold systemic corticosteroids-patient did receive 10 mg of Decadron in the emergency room.
Continue oxygen supplementation-maintain pulse ox above 88%. Currently at 2 L. Will wean off as able
Patient unable to perform inhaler maneuver he is chronically on DuoNeb/Pulmicort nebulizer-continue for now
-
Has history of obstructive sleep apnea/likely obesity hypoventilation given chronic hypercapnia-intolerant to CPAP.
Continue supplemental oxygen
Avoid sedatives
BiPAP while in the hospital.
-
Increase activity as able, physical therapy/Occupational Therapy.
-
Will follow
-
Follow-up with Dr. Addison after discharge
Subjective Data
-
Date of Service:
Date of Service: September 28, 2023
Chief Complaint: Pulmonary Follow Up (Pneumonia, hypercapnic respiratory failure)
Subjective:
Patient feels better this morning
Alert, eating some breakfast
Reports some coughing with difficulty expectorating. Denies hemoptysis.
Shortness of breath improved.
Review of Systems
General: Fever (n)
Cardiopulmonary: Dyspnea (Improved), Cough, Sputum Production and Wheezing (n)
Objective Data
Data Reviewed
Vital Signs / I&O / Oxygen:
Vital Signs
Temp Pulse Resp BP Pulse Ox
97.4 F 82 18 130/84 93
09/28/23 07:33 09/28/23 08:16 09/28/23 08:16 09/28/23 08:00 09/28/23 09:25
Intake and Output
09/27/23 09/28/23 09/29/23
06:59 06:59 06:59
Intake Total 120 / 120
Output Total 600 / 600
Balance -600 / -600 120 / 120
SaO2 93
Nasal Cannula flow liters per 2
minute
Physical Exam
General: Respiratory Distress (n) and Comfortable
HEENT: Normocephalic
Cardiovascular: S1-S2 and Regular Rhythm
Respiratory: Wheeze (Expiratory bilaterally.), Non-Labored Respirations and Other (Good air movement.)
GI: Soft and Non Distended
Neurology: Awake, Oriented and AO x 3
Skin: Warm
Labs/Micro/Reports
Lab Data
09/27/23 09:27
09/27/23 09:27
Laboratory Results
09/27/23 09/27/23
10:52 14:58
pH 7.32 L 7.31 L
pCO2 70 H 71 H*
pO2 64 L 59 L*
HCO3 36.1 H 35.7 H
O2 Delivery Level Not Reportable
Microbiology
09/27/23 09:27 Blood/Venous Blood Culture - Preliminary
No Growth in 24 hours- Final report to follow
09/27/23 09:27 Nasal Swab Influenza Types A & B (CELINA) - Final
Negative for Influenza A & B, NAAT
Negative results must be combined with clinical observations
and patient history.
Nucleic Acid Amplification test (NAAT)performed on the
[employer] NOW platform.
--- NOTE | 2023-09-28 09:56 | PTCARENOTE ---
Patient is awake, alert and oriented to person and place, saying that it is 2003. Patient is having visual hallucinations and is talking to a 'Rubio'. Patient is weaned to 2 liters of oxygen , expirartory wheezing and non productive cough. Good
appetite. Fully bathed and oral care provided. Chair position while in bed at this time. Denying pain when asked.
--- NOTE | 2023-09-28 11:31 | CM ---
Addendum entered by Vilma Tang RN 09/28/23 12:05:
ST Eval; dysphagia diet. PT & OT Evals pending.
Spoke with nurse Mayur Wolf.
Plan follow up after PT/OT Evals.
Original Note:
Patient from [facility] with Hx intellectual disability and schizophrenia with Dx AMS secondary to encephalopathy from hypercapnic respiratory failure, concern for pneumonia. O2 2L. Receiving IV Abx.
Spoke with nurse Mayur Miller (ph [phone]); the patient resides there in their 2 story facility with no MARLON and bedroom/bath on first floor.
He is normally alert & cooperative, and has limited vision.
The patient requires assistance with ADLs and ambulated independently without an assistive device.
The patient has Home O2 2L - concentrator and portables - through [employer]
He had prior [facility].
No prior SNF.
PCP - Rubio Edwards
Pharmacy - [place] (fax [phone])
The patient has a psychiatrist Dr Mayorga for individual therapy.
They have notified the patient's sister Waldo re; the admission.
The phone for report [phone], fax [phone].
[facility] has a transport van and may provide transport home.
Message to Dr Tay- nurse reports patient may benefit from PT/OT Evals.
Plan follow up after PT/OT Evals.
--- NOTE | 2023-09-28 12:28 | PTCARENOTE ---
Patient unable to urinate today, bladder scan 814. Straight cath for 800. Dr. Tay notified. Patient tolerated straight cath well with one successful attempt.
--- NOTE | 2023-09-28 12:30 | PTOTSP ---
Video Swallow Study
Summary: Patient presents with mild oral/pharyngeal stages of swallowing. There was deep laryngeal penetration which cleared larynx with thin liquids via cup/consecutive cup sips and upper transient penetration with thin liquids via cup with a chin
tuck. No aspiration noted.
Recommend:
1. IDDSI Level 6 (Soft/Bite Sized), IDDSI Level 0 (Thin Liquids)
2. Supervision; assist as needed
3. Medications - 1 at a time in applesauce
4. Strategies: upright to 90 degrees, liquids via cup, small single sips/bites, slow rate, reflux precautions
5. Oral care 3x daily
6. No further therapy warranted at the acute care level. Will remain available for caregiver education as appropriate. Consider consult to [employer]PER[employer]OR outside of acute care prior to diet advancements. Patient is at his reported baseline diet at this time.
[2023-09-28 12:32] LABS: Glucose - Point of Care 330 mg/dl (70-99)
--- NOTE | 2023-09-28 12:42 | W.PN.HOSP.TC ---
Today's Communication/Plan
-
Tx to med surg
Assessment / Plan
Assessment / Plan
Altered mental status secondary to encephalopathy from hypercapnic respiratory failure. Much improved and today he is alert and oriented.
Acute hypoxic and hypercapnic respiratory failure. Patient normally on 4 L of oxygen via nasal cannula for chronic hypoxic respiratory insufficiency. Today's ABG shows hypercapnia. He is known to have COPD. Started on BiPAP. This morning
with the improved alertness and improved oxygenation. Currently off of BiPAP on 2 L of oxygen.
Bilateral right more than left basilar opacities concerning for pneumonia. I do see procalcitonin normal but with elevated white count and clinical concern of aspiration ,i am not sure if procalcitonin is applicable in this setting. It is tx as
community-acquired pneumonia. cw empirical antibiotics including vancomycin, cefepime and Flagyl.
Evaluated by speech-cleared for IDDSI 6 diet.
Fever with tachypnea and bandemia ongoing and with sepsis.
COPD-patient - today bronchospastic. Continue with his home nebulizer treatments. Consider steroids. Pulmonary following.
Hypertension-cw oral home medications
Diabetes mellitus-cw home tx
Schizophrenia-resume his home medications
Full code
DVT prophylaxis with Lovenox
Tx to med surg
Anticipated Discharge: > 48 hours
Subjective/Interval History
-
Date of Service: September 28, 2023
Patient today much more alert and oriented. Following commands. He knows he is in the hospital but could't not name it.
Improved breathing. Currently on nasal cannula. No chest pain. No fever or chills.
Objective Data
-
Vital Signs:
Vital Signs
Temp Pulse Resp BP Pulse Ox
98.2 F 82 18 130/84 93
09/28/23 11:34 09/28/23 08:16 09/28/23 08:16 09/28/23 08:00 09/28/23 09:25
I&O
09/27/23 09/28/23 09/29/23
06:59 06:59 06:59
Intake Total 460 / 460
Output Total 600 / 600 800 / 800
Balance -600 / -600 -340 / -340
Review of Systems
-
Abdomen/GI: Denies Abdominal Pain, Nausea or Vomiting
Neuro: Denies Dizzy
Physical Exam
-
General: No Apparent Distress
HEENT: Moist Mucous Membranes
Respiratory: Wheezes (BL) and Non Labored Respirations; Negative Accessory Resp Muscle Use
Cardiac: Regular Rhythm and S1/S2
Neuro: Awake, Alert and Oriented
Psych: Calm
Data Reviewed
-
Labs: Labs Reviewed by me
[2023-09-28] MEDS: CLARITIN 10 MG PO (13:26)
[2023-09-28] MEDS: JANUVIA 100 MG PO (13:26)
[2023-09-28] MEDS: NOVOLOG FLEXPEN-LOW RESISTANCE 4 UNITS SC (13:27)
[2023-09-28] MEDS: CARDIZEM CD 120 MG PO (13:30)
[2023-09-28] MEDS: DUONEB INH (13:44)
[2023-09-28] MEDS: LANTUS 0.100000000000000006 UNITS SC (14:22)
--- NOTE | 2023-09-28 15:37 | PTOTSP ---
pt is close to or at baseline regarding simple ADLs, functional transfers, ambulation. [facility]. no acute OT needs identified at this time, will sign off.
[2023-09-28] MEDS: DUONEB 3 ML INH ×2 (15:40→20:42)
[2023-09-28] MEDS: LOVENOX 40 MG SC (16:49)
[2023-09-28] MEDS: GLUCOPHAGE 500 MG PO (17:06)
[2023-09-28 17:07] LABS: Glucose - Point of Care 266 mg/dl (70-99)
[2023-09-28] MEDS: NOVOLOG FLEXPEN-LOW RESISTANCE 3 UNITS SC (17:11)
[2023-09-28] MEDS: FLOMAX 0.400000000000000022 MG PO (21:21)
[2023-09-28] MEDS: ZYPREXA 30 MG PO (21:21)
[2023-09-28] MEDS: DEPAKOTE (12 HR RELEASE) 250 MG PO (21:21)
[2023-09-28] MEDS: DEPAKOTE (12 HR RELEASE) 1000 MG PO (21:22)
[2023-09-28] MEDS: SEROQUEL 50 MG PO (21:22)
--- NOTE | 2023-09-28 22:10 | PTCARENOTE ---
Called [facility] to give report. Waiting to hear back from RN.
[2023-09-28 22:40] LABS: Glucose - Point of Care 255 mg/dl (70-99)
--- NOTE | 2023-09-28 23:26 | PTCARENOTE ---
Report given to [facility] RN. Pt sent with all belongings.
[2023-09-29 00:06] VITALS: BMI 31.1
[2023-09-29 00:09] VITALS: BP 130/76
[2023-09-29] MEDS: FLAGYL 500 MG 100 IV ×4 (00:24→23:49)
[2023-09-29] MEDS: MAXIPIME 1000 MG IV ×4 (03:31→21:30)
[2023-09-29] MEDS: STERILE WATER FOR INJECTION 10 ML IV ×4 (03:31→21:30)
[2023-09-29] MEDS: PINK BISMUTH 525 MG PO (04:42)
[2023-09-29] MEDS: SYNTHROID 200 MCG PO (05:06)
[2023-09-29 07:00] VITALS: BP 135/79
[2023-09-29] MEDS: PULMICORT 0.5 MG INH ×2 (07:25→20:33)
[2023-09-29] MEDS: DUONEB 3 ML INH ×4 (07:25→20:33)
[2023-09-29 07:49] LABS: Glucose - Point of Care 154 mg/dl (70-99)
[2023-09-29 08:07] LABS: Hematocrit 32.9 % (39.0-52.0); Hemoglobin 10.8 g/dL (13.0-18.0); Mean Corp Hgb Conc. 32.8 g/dL (33.0-37.0); Mean Corpuscular Hgb 31.8 pg (27.0-31.0); Mean Corpuscular Volume 96.8 fL (80.0-94.0); Mean Platelet Volume 10.9 fL (7.4-10.4); Platelet Count 204 10^3/uL (130-400); Red Cell Dist. Width 13.6 % (11.5-14.5)
[2023-09-29] MEDS: PROTONIX 40 MG PO (08:16)
[2023-09-29] MEDS: JANUVIA 100 MG PO (08:16)
[2023-09-29] MEDS: CLARITIN 10 MG PO (08:16)
[2023-09-29] MEDS: DEPAKOTE (12 HR RELEASE) 1000 MG PO ×2 (08:16→20:29)
[2023-09-29] MEDS: GLUCOPHAGE 500 MG PO ×2 (08:16→16:23)
[2023-09-29] MEDS: VITAMIN B-12 500 MCG PO (08:16)
[2023-09-29] MEDS: LIPITOR 20 MG PO (08:16)
[2023-09-29] MEDS: CARDIZEM CD 120 MG PO (08:18)
[2023-09-29 08:58] LABS: Blood Urea Nitrogen 18 mg/dl (9-20); Calcium 9.1 mg/dl (8.4-10.2); Carbon Dioxide 33 mmol/L (22-30); Chloride 97 mmol/L (98-107); Estimated Creatinine Clearance > 125 ml/min; Glucose 145 mg/dl (70-99); Potassium 3.9 mmol/L (3.5-5.1); Sodium 137 mmol/L (135-145); eGFR > 60.00
[2023-09-29] MEDS: LANTUS 0.100000000000000006 UNITS SC (09:23)
[2023-09-29] MEDS: DEPAKOTE (12 HR RELEASE) 250 MG PO ×2 (09:36→20:30)
[2023-09-29] MEDS: NOVOLOG FLEXPEN-LOW RESISTANCE 1 UNITS SC (09:36)
--- NOTE | 2023-09-29 11:13 | W.PN.PUL3 ---
Today's Communication / Plan
-
Continue antibiotics for aspiration pneumonia
No indication for systemic steroids at this time
Continue nebulizer
PT/OT
Eventual follow-up CT chest as outpatient, follows Dr. Addison
Assessment
-
63-year-old man with history of COPD, known to Dr. Addison. Recurrent pneumonia with suspected aspiration. Readmitted with bilateral pneumonia, acute on chronic hypercapnic respiratory failure necessitating BiPAP. Transferred to intermediate care
unit, pulmonary consulted 09/27/2023 per
Acute on chronic hypercapnic respiratory failure-possibly decompensated due to pneumonia.
AB. Acute on chronic hypercapnic respiratory failure.
Abnormal chest x-ray: Bibasilar infiltrates suggestive of pneumonia.
Recurrent aspiration is strongly suspected.
Toxic metabolic encephalopathy secondary to above.
Conditions present prior to admission:
COPD on home 2 L
Follow-up with Dr. Addison: On DuoNeb/Pulmicort nebulizer-unable to perform inhaler maneuver.
Obstructive sleep apnea/obesity hypoventilation syndrome: Intolerant to CPAP.
Chronic hypoxic hypercarbic RF
Recurrent pneumonia.
L basilar infiltrate on CXR and CT June 2023, adm [facility], negative PCT, received ceftriaxone and azithromycin for 2 d and atbs were d/c
Mild
GERD
Hypothyroidism
HTN
Schizophrenia
Anemia
Nephrolithiasis
BPH
Polydipsia
Sz
T2DM
Legally blind
Glaucoma
COVID
Cholecystectomy
Former Smoker
NHR
Disabled
Assessment and plan:
At this time, patient appears to be objectively and subjectively improved
Chest exam is clear, no wheezes
Patient alert and oriented, following commands
Mental status back to baseline
On low rate supplemental oxygen 2 L.
Continue nocturnal BiPAP and with naps.
Avoid sedatives
Moving forward
Continue DuoNebs-Home regimen
Continue Pulmicort-Home regimen
Agree with antibiotics, to cover for aspiration.
Continue with aspiration precautions
Speech evaluation from 09/28/2023: Noted. Mild oropharyngeal dysphagia on video barium swallow 06/07/2023. Diet has been modified. Suspect at his facility he does not follow diet modifications.
Chest x-ray from 09/26 with new right perihilar pneumonia
Continue with cefepime
In the past has not been able to produce phlegm.
Blood cultures were sent, currently negative
Afebrile without leukocytosis
Patient is known to have recurrent pneumonia. Aspiration has been suspected in the past despite negative speech evaluation.
Head of the bed elevation
Advance diet per speech therapy.
May need to consider video barium swallow at some point
He has history of COPD: COPD is moderate to severe.
Last time seen by Dr. Addison early 09/2023-patient was doing well. He was due to repeat a CT of the chest to document resolution of prior pneumonia. This can be done as outpatient
Wean off oxygen as able. Patient not on oxygen therapy at home
PT/OT, ambulate
Has history of obstructive sleep apnea/likely obesity hypoventilation given chronic hypercapnia-intolerant to CPAP.
Continue supplemental oxygen
Avoid sedatives
BiPAP while in the hospital.
Increase activity as able, physical therapy/Occupational Therapy.
Disposition efforts
Follow-up with Dr. Addison after discharge
Subjective Data
-
Date of Service:
Date of Service: September 29, 2023
Chief Complaint: Pulmonary Follow Up (Pneumonia, hypercapnic respiratory failure)
Subjective:
Patient feels well. Feels his breathing is at baseline, denies chest pain, abdominal pain, nausea. Has mild dry cough but no hemoptysis. Sitting in chair, conversant and in good spirits
Objective Data
Data Reviewed
Vital Signs / I&O / Oxygen:
Vital Signs
Temp Pulse Resp BP Pulse Ox
97.7 F 64 16 135/79 98
09/29/23 07:00 09/29/23 08:18 09/29/23 07:27 09/29/23 08:18 09/29/23 07:27
Intake and Output
09/28/23 09/29/23 09/30/23
06:59 06:59 06:59
Intake Total 580 / 580
Output Total 600 / 600 2100 / 2100
Balance -600 / -600 -1520 / -1520
SaO2 98
Nasal Cannula flow liters per 2
minute
Physical Exam
General: Comfortable
HEENT: Normocephalic and Anicteric
Cardiovascular: S1-S2, Regular Rhythm, Murmur (n) and Rub (n)
Respiratory: Wheeze (n), Crackles (n), Rhonchi (n), Non-Labored Respirations and Other (Good air movement.)
GI: Soft, Non Distended and Non Tender
Neurology: Awake and Alert
Skin: Good Color (Mild pallor), Cyanosis (n), Jaundice (n) and Rash (n)
Labs/Micro/Reports
Lab Data
09/29/23 07:33
09/29/23 07:32
Microbiology
09/27/23 10:02 Blood/Venous Blood Culture - Preliminary
No Growth in 48 hours- Final report to follow
09/27/23 09:27 Blood/Venous Blood Culture - Preliminary
No Growth in 48 hours- Final report to follow
09/28/23 05:15 Nose Nasal Screen MRSA (PCR) - Final
MRSA not detected - performed by PCR methodology.
09/27/23 09:27 Nasal Swab Influenza Types A & B ([facility]) - Final
Negative for Influenza A & B, NAAT
Negative results must be combined with clinical observations
and patient history.
Nucleic Acid Amplification test (NAAT)performed on the
[employer] platform.
--- NOTE | 2023-09-29 11:40 | W.PN.HOSP.TC ---
Today's Communication/Plan
-
CW ABX
CW Nebs
DC planning
Assessment / Plan
Assessment / Plan
Altered mental status secondary to encephalopathy from hypercapnic respiratory failure. Remains improved.
Acute hypoxic and hypercapnic respiratory failure. Patient normally on 4 L of oxygen via nasal cannula for chronic hypoxic respiratory insufficiency. He is known to have COPD. Tx with BiPAP. Currently off of BiPAP with improved
mentation.CW O2 via NC.
Bilateral right more than left basilar opacities concerning for pneumonia. I do see procalcitonin normal but with elevated white count and clinical concern of aspiration ,i am not sure if procalcitonin is applicable in this setting. It is tx as
community-acquired pneumonia. cw empirical antibiotics including cefepime and Flagyl. DC Vancomycin
Evaluated by speech-cleared for IDDSI 6 diet.
Fever with tachypnea and bandemia ongoing and with sepsis.Resolved fever and sepsis.
COPD-patient -few wheezes but clinically not SOB . Continue with his home nebulizer treatments. Consider steroids if symptomatic. Pulmonary following.
Hypertension-cw oral home medications
Diabetes mellitus-cw home tx
Schizophrenia-resume his home medications
Full code
DVT prophylaxis with Lovenox
DC Planning
Anticipated Discharge: Within 24 hours
Subjective/Interval History
-
Date of Service: September 29, 2023
feeling improved with regards to his breathing.
Not much of cough. No chest pain. No nausea vomiting. No fever or chills.
Alert and oriented to self and person. Knows he is in the hospital but cannot name it.
Objective Data
-
Labs:
Laboratory Results
09/29/23 09/29/23
07:32 07:33
WBC 4.0 L
Hgb 10.8 L
Hct 32.9 L
Plt Count 204 D
Sodium 137
Potassium 3.9
Chloride 97 L
Carbon Dioxide 33 H
BUN 18
Creatinine 0.6 L
Glucose 145 H
Calcium 9.1
Vital Signs:
Vital Signs
Temp Pulse Resp BP Pulse Ox
97.7 F 70 16 135/79 95
09/29/23 07:00 09/29/23 11:34 09/29/23 11:34 09/29/23 08:18 09/29/23 11:34
I&O
09/28/23 09/29/23 09/30/23
06:59 06:59 06:59
Intake Total 580 / 580
Output Total 600 / 600 2100 / 2100
Balance -600 / -600 -1520 / -1520
Review of Systems
-
EENT: Denies Sore Throat
Abdomen/GI: Denies Abdominal Pain, Nausea or Vomiting
Neuro: Denies Dizzy
Physical Exam
-
General: No Apparent Distress
HEENT: Moist Mucous Membranes
Respiratory: Wheezes (faint wheeze in left lower zone today), Crackles (rt base) and Non Labored Respirations; Negative Accessory Resp Muscle Use
Cardiac: Regular Rhythm and S1/S2
Neuro: Awake, Alert and Oriented
Psych: Calm and Confused; Negative Agitated
Data Reviewed
-
Labs: Labs Reviewed by me
[2023-09-29 11:47] LABS: Glucose - Point of Care 307 mg/dl (70-99)
[2023-09-29] MEDS: NOVOLOG FLEXPEN-LOW RESISTANCE 4 UNITS SC (12:12)
[2023-09-29 15:00] VITALS: BP 124/65
[2023-09-29 16:12] VITALS: BP 128/84; PULSE 72; O2SAT 97
[2023-09-29] MEDS: LOVENOX 40 MG SC (16:23)
[2023-09-29 17:01] LABS: Glucose - Point of Care 271 mg/dl (70-99)
[2023-09-29] MEDS: NOVOLOG FLEXPEN-LOW RESISTANCE 3 UNITS SC (17:20)
[2023-09-29 21:26] LABS: Glucose - Point of Care 304 mg/dl (70-99)
[2023-09-29] MEDS: SEROQUEL 50 MG PO (21:30)
[2023-09-29] MEDS: FLOMAX 0.400000000000000022 MG PO (21:30)
[2023-09-29] MEDS: ZYPREXA 30 MG PO (21:31)
[2023-09-29 23:00] VITALS: BP 132/78
[2023-09-29 23:41] VITALS: PULSE 2; PULSE 75
[2023-09-30 03:00] VITALS: PULSE 2
[2023-09-30] MEDS: MAXIPIME 1000 MG IV ×4 (04:30→22:23)
[2023-09-30] MEDS: STERILE WATER FOR INJECTION 10 ML IV ×4 (04:30→22:23)
--- NOTE | 2023-09-30 04:41 | PTCARENOTE ---
~00:00 Pt wanted Bpap off. Pt reported 'I can't breath with this thing on.' Pt educated to breath in through the nose and out through mouth. Pt requested again to have the Bpap off. Bpap removed and 2L NC placed back on pt. Plan of care ongoing.
~02:45 Pt restless in bed. Pt appears more lethargic. Pt arousable. AAXO2. Respiratory therapy placed pt back on Bpap. Notified JOSE Angela. New orders placed. Pt resting comfortably wearing Bpap. Pt arousable. No signs of distress. Plan
of care ongoing.
[2023-09-30 07:10] VITALS: BP 147/83
[2023-09-30 07:40] LABS: Glucose - Point of Care 194 mg/dl (70-99)
[2023-09-30] MEDS: DEPAKOTE (12 HR RELEASE) 1000 MG PO ×2 (07:59→20:14)
[2023-09-30] MEDS: SYNTHROID 200 MCG PO (07:59)
[2023-09-30] MEDS: VITAMIN B-12 500 MCG PO (08:00)
[2023-09-30] MEDS: CLARITIN 10 MG PO (08:00)
[2023-09-30] MEDS: GLUCOPHAGE 500 MG PO ×2 (08:00→15:53)
[2023-09-30] MEDS: JANUVIA 100 MG PO (08:00)
[2023-09-30] MEDS: LIPITOR 20 MG PO (08:00)
[2023-09-30] MEDS: PROTONIX 40 MG PO (08:00)
[2023-09-30] MEDS: DEPAKOTE (12 HR RELEASE) 250 MG PO ×2 (08:00→20:14)
[2023-09-30] MEDS: FLAGYL 500 MG 100 IV ×2 (08:01→15:52)
[2023-09-30] MEDS: LANTUS 0.100000000000000006 UNITS SC (08:08)
[2023-09-30] MEDS: CARDIZEM CD 120 MG PO (08:08)
[2023-09-30] MEDS: NOVOLOG FLEXPEN-LOW RESISTANCE 1 UNITS SC (08:09)
[2023-09-30] MEDS: DUONEB 3 ML INH ×4 (08:17→20:13)
[2023-09-30] MEDS: PULMICORT 0.5 MG INH ×2 (08:17→20:13)
[2023-09-30 11:53] LABS: Glucose - Point of Care 246 mg/dl (70-99)
[2023-09-30] MEDS: NOVOLOG FLEXPEN-LOW RESISTANCE 2 UNITS SC (12:50)
--- NOTE | 2023-09-30 13:36 | W.PN.PUL3 ---
Today's Communication / Plan
-
Better, continue abx
Eventual home O2 assessment
Awaiting placement on Monday due to availability of home care givers
Outpatient pulmonary FU recommended
Discharge planning per team
We will sign off at this time, please call with questions
Assessment
-
63-year-old man with history of COPD, known to Dr. Addison. Recurrent pneumonia with suspected aspiration. Readmitted with bilateral pneumonia, acute on chronic hypercapnic respiratory failure necessitating BiPAP. Transferred to intermediate care
unit, pulmonary consulted 09/27/2023 per
Acute on chronic hypercapnic respiratory failure-possibly decompensated due to pneumonia.
AB.. Acute on chronic hypercapnic respiratory failure.
Abnormal chest x-ray: Bibasilar infiltrates suggestive of pneumonia.
Recurrent aspiration is strongly suspected.
Toxic metabolic encephalopathy secondary to above.
Conditions present prior to admission:
COPD on home 2 L
Follow-up with Dr. Addison: On DuoNeb/Pulmicort nebulizer-unable to perform inhaler maneuver.
Obstructive sleep apnea/obesity hypoventilation syndrome: Intolerant to CPAP.
Chronic hypoxic hypercarbic RF
Recurrent pneumonia.
L basilar infiltrate on CXR and CT June 2023, adm [facility], negative PCT, received ceftriaxone and azithromycin for 2 d and atbs were d/c
Mild
GERD
Hypothyroidism
HTN
Schizophrenia
Anemia
Nephrolithiasis
BPH
Polydipsia
Sz
T2DM
Legally blind
Glaucoma
COVID
Cholecystectomy
Former Smoker
NHR
Disabled
Plan:
At this time, patient appears to be objectively and subjectively improved
Chest exam is clear, no wheezes
Patient alert and oriented, following commands
Mental status back to baseline
On low rate supplemental oxygen 2 L--98%.
Continue nocturnal BiPAP and with naps.
Avoid sedatives
Moving forward
Continue DuoNebs-Home regimen
Continue Pulmicort-Home regimen
Agree with antibiotics, to cover for aspiration.
Continue with aspiration precautions
Speech evaluation from 09/28/2023: Noted. Mild oropharyngeal dysphagia on video barium swallow 06/07/2023. Diet has been modified. Suspect at his facility he does not follow diet modifications.
Chest x-ray from 09/26 with new right perihilar pneumonia
Continue with cefepime
In the past has not been able to produce phlegm.
Blood cultures were sent, currently negative
Afebrile without leukocytosis
Patient is known to have recurrent pneumonia. Aspiration has been suspected in the past despite negative speech evaluation.
Head of the bed elevation
Advance diet per speech therapy.
May need to consider video barium swallow at some point
He has history of COPD: COPD is moderate to severe.
Last time seen by Dr. Addison early 09/2023-patient was doing well. He was due to repeat a CT of the chest to document resolution of prior pneumonia. This can be done as outpatient
Wean off oxygen as able. Patient not on oxygen therapy at home
PT/OT, ambulate
Has history of obstructive sleep apnea/likely obesity hypoventilation given chronic hypercapnia-intolerant to CPAP.
Continue supplemental oxygen
Avoid sedatives
BiPAP while in the hospital.
Increase activity as able, physical therapy/Occupational Therapy.
Disposition efforts
Follow-up with Dr. Addison after discharge
Subjective Data
-
Date of Service:
Date of Service: September 30, 2023
Chief Complaint: Pulmonary Follow Up (Pneumonia, hypercapnic respiratory failure)
Subjective:
improved, cough ongoing but better
no new complaints
wants coffee
Objective Data
Data Reviewed
Vital Signs / I&O / Oxygen:
Vital Signs
Temp Pulse Resp BP Pulse Ox
97.7 F 70 16 147/83 98
09/30/23 07:10 09/30/23 11:32 09/30/23 11:32 09/30/23 08:08 09/30/23 11:32
Intake and Output
09/29/23 09/30/23 10/01/23
06:59 06:59 06:59
Intake Total 580 / 580 1185 / 1185
Output Total 2100 / 2100 1250 / 1250
Balance -1520 / -1520 -65 / -65
SaO2 98
Nasal Cannula flow liters per 2
minute
Physical Exam
General: Comfortable
HEENT: Normocephalic and Anicteric
Cardiovascular: S1-S2, Regular Rhythm, Murmur (n) and Rub (n)
Respiratory: Wheeze (n), Crackles (bibasilar/mild), Rhonchi (n), Non-Labored Respirations and Other (Good air movement.)
GI: Soft, Non Distended and Non Tender
Neurology: Awake, Alert and Oriented
Skin: Good Color (Mild pallor), Cyanosis (n), Jaundice (n) and Rash (n)
Labs/Micro/Reports
Lab Data
09/29/23 07:33
09/29/23 07:32
Microbiology
09/27/23 10:02 Blood/Venous Blood Culture - Preliminary
No Growth in 72 hours- Final report to follow
09/27/23 09:27 Blood/Venous Blood Culture - Preliminary
No Growth in 72 hours- Final report to follow
09/28/23 05:15 Nose Nasal Screen MRSA (PCR) - Final
MRSA not detected - performed by PCR methodology.
09/27/23 09:27 Nasal Swab Influenza Types A & B ([facility]) - Final
Negative for Influenza A & B, NAAT
Negative results must be combined with clinical observations
and patient history.
Nucleic Acid Amplification test (NAAT)performed on the
[employer] platform.
[2023-09-30 15:03] VITALS: BP 119/66
--- NOTE | 2023-09-30 15:45 | W.PN.HOSP.TC ---
Today's Communication/Plan
-
CW ABX
DC planning
Assessment / Plan
Assessment / Plan
Altered mental status secondary to encephalopathy from hypercapnic respiratory failure. Remains improved.
Acute hypoxic and hypercapnic respiratory failure. Patient normally on 4 L of oxygen via nasal cannula for chronic hypoxic respiratory insufficiency. He is known to have COPD. Tx with BiPAP. Currently off of BiPAP with improved
mentation.CW O2 via NC.
Bilateral right more than left basilar opacities concerning for pneumonia. I do see procalcitonin normal but with elevated white count and clinical concern of aspiration ,i am not sure if procalcitonin is applicable in this setting. It is tx as
community-acquired pneumonia. cw empirical antibiotics including cefepime and Flagyl. DCed Vancomycin
Evaluated by speech-cleared for IDDSI 6 diet.
Fever with tachypnea and bandemia ongoing and with sepsis.Resolved fever and sepsis.
COPD-patient -No exacerbation. Continue with his home nebulizer treatments. Pulmonary following.
Hypertension-cw oral home medications
Diabetes mellitus-cw home tx
Schizophrenia-resume his home medications
Full code
DVT prophylaxis with Lovenox
DC Planning
[facility] cant take him back over the weekend.
Anticipated Discharge: 24 - 48 hours
Subjective/Interval History
-
Date of Service: September 30, 2023
No overnight events
Objective Data
-
Vital Signs:
Vital Signs
Temp Pulse Resp BP Pulse Ox
97.8 F 72 16 119/66 98
09/30/23 15:03 09/30/23 15:27 09/30/23 15:27 09/30/23 15:03 09/30/23 15:27
I&O
09/29/23 09/30/23 10/01/23
06:59 06:59 06:59
Intake Total 580 / 580 1185 / 1185
Output Total 2100 / 2100 1250 / 1250
Balance -1520 / -1520 -65 / -65
Review of Systems
-
Respiratory: Reports Cough; Denies Trouble Breathing
Cardiac: Denies Chest Pain
Abdomen/GI: Denies Nausea or Vomiting
Neuro: Denies Dizzy
Physical Exam
-
General: No Apparent Distress
HEENT: Moist Mucous Membranes
Respiratory: Crackles (rt basal ) and Non Labored Respirations; Negative Accessory Resp Muscle Use
Neuro: Awake and Alert
Psych: Calm
[2023-09-30 16:40] LABS: Glucose - Point of Care 256 mg/dl (70-99)
[2023-09-30] MEDS: NOVOLOG FLEXPEN-LOW RESISTANCE 3 UNITS SC (16:46)
[2023-09-30] MEDS: LOVENOX 40 MG SC (16:46)
[2023-09-30 21:20] LABS: Glucose - Point of Care 217 mg/dl (70-99)
[2023-09-30] MEDS: SEROQUEL 50 MG PO (22:22)
[2023-09-30] MEDS: ZYPREXA 30 MG PO (22:22)
[2023-09-30] MEDS: FLOMAX 0.400000000000000022 MG PO (22:23)
[2023-09-30 23:00] VITALS: BP 139/76
[2023-09-30 23:09] VITALS: BP 139/76
[2023-10-01] MEDS: FLAGYL 500 MG 100 IV ×2 (00:32→07:37)
--- NOTE | 2023-10-01 02:48 | PTCARENOTE ---
Pt refusing to wear BiPAP tonight. This RN educated the patient on the importance of wearing his BiPAP but pt is continuing to refuse to wear it. 2L nasal cannula placed on pt. Will continue to monitor.
[2023-10-01] MEDS: SYNTHROID 200 MCG PO (04:50)
[2023-10-01] MEDS: STERILE WATER FOR INJECTION 10 ML IV ×2 (04:50→09:49)
[2023-10-01] MEDS: MAXIPIME 1000 MG IV ×2 (04:50→09:49)
[2023-10-01 05:25] VITALS: PULSE 2
--- NOTE | 2023-10-01 05:49 | PTCARENOTE ---
Pt was more lethargic this AM and arousable to tactile instead of his baseline of verbally arousable. Pt on 2L nasal cannula. RT notified and placed pt back on BiPAP for about 5 minutes. Pt called out to this RN 'I can't breathe with this thing
on'. Pt now verbally arousable and sitting up in bed. Pt placed back on 2L nasal cannula and moved out of bed to sit up in chair. Will continue to monitor mental status and arousability.
[2023-10-01 07:00] VITALS: BP 134/72
[2023-10-01 07:14] LABS: Glucose - Point of Care 167 mg/dl (70-99)
[2023-10-01] MEDS: JANUVIA 100 MG PO (07:35)
[2023-10-01] MEDS: VITAMIN B-12 500 MCG PO (07:35)
[2023-10-01] MEDS: PROTONIX 40 MG PO (07:35)
[2023-10-01] MEDS: GLUCOPHAGE 500 MG PO ×2 (07:36→17:40)
[2023-10-01] MEDS: DEPAKOTE (12 HR RELEASE) 250 MG PO ×2 (07:36→19:52)
[2023-10-01] MEDS: CLARITIN 10 MG PO (07:36)
[2023-10-01] MEDS: DEPAKOTE (12 HR RELEASE) 1000 MG PO ×2 (07:36→19:52)
[2023-10-01] MEDS: LANTUS 0.100000000000000006 UNITS SC (07:37)
[2023-10-01] MEDS: NOVOLOG FLEXPEN-LOW RESISTANCE 1 UNITS SC ×3 (07:37→17:40)
[2023-10-01] MEDS: LIPITOR 20 MG PO (07:39)
[2023-10-01] MEDS: CARDIZEM CD 120 MG PO (07:39)
[2023-10-01] MEDS: DUONEB 3 ML INH ×4 (08:03→19:40)
[2023-10-01] MEDS: PULMICORT 0.5 MG INH ×2 (08:03→19:40)
[2023-10-01 11:29] LABS: Glucose - Point of Care 186 mg/dl (70-99)
--- NOTE | 2023-10-01 12:28 | CM ---
Addendum entered by Vilma Tang RN 10/01/23 12:46:
Spoke with nurse Mayur Lawrence x [phone]; relayed patient able to ambulate today without RW with supervision. Supervision only due to limited vision, PT feels he is at his baseline and he will be independent in his own environment.
[facility] Dressing Room Attendant can be reached at x [phone].
Plan confirm On-Site Eval tomorrow with [facility].
Plan return to [facility] tomorrow.
Original Note:
Patient from [facility] with Hx intellectual disability and schizophrenia with Dx AMS secondary to encephalopathy from hypercapnic respiratory failure, concern for pneumonia. O2 2L. Receiving IV Abx.
Spoke with Dr Oates; the patient is medically ready for d/c today.
PT Eval 09/28; independent in transfers, ambulation required RW and CGA, recommendation return to [facility].
OT 09/27; No skilled OT needed.
Spoke with nurse Mayur Lawrence; informed her that the patient is medically ready for d/c. She spoke with the [facility] administrator and they are unable to accept the patient back today. Howard's concerns are that the patient required RW and CGA with
PT, and he is still on IV Abx. The [facility] administrator told her that they will require an On-Site Eval which cannot be done today, and they may want to get the patient into 'respite'. CM requested that they set-up an On-Site Eval for tomorrow - she said
she is uncertain when that will be done. [facility] - The phone for report [phone], fax [phone].
Spoke with MEENAKSHI Rosario; they will see the patient again today.
Plan follow up after PT Re-eval.
Plan confirm On-Site Eval tomorrow with [facility].
Plan return to [facility] tomorrow.
[2023-10-01 12:48] VITALS: BP 110/63; PULSE 86; O2SAT 95
--- NOTE | 2023-10-01 14:50 | W.PN.HOSP.TC ---
Today's Communication/Plan
-
d/c planning to faclility
Assessment / Plan
Assessment / Plan
Altered mental status secondary to encephalopathy from hypercapnic respiratory failure. Remains improved.
Acute hypoxic and hypercapnic respiratory failure.
-Required BiPAP therapy with improvement of hypercapnic respiratory failure. Mentation back to normal
-Patient normally on 4 L of oxygen via nasal cannula for chronic hypoxic respiratory insufficiency.
-Pulmo help appreciated
Aspiration pneumonia
Fever with tachypnea and bandemia ongoing and with sepsis at admission, resolved at this point,
Maintained on empiric cefepime and Flagyl
Evaluated by speech-cleared for IDDSI 6 diet.
COPD
-No signs of exacerbation at this point
Hypertension
-cw oral home medications
Diabetes mellitus
Schizophrenia
Full code
DVT prophylaxis with Lovenox
09/30 stable for discharge and watch case polisher contacted her home to home although facility cannot accept today
Anticipated Discharge: Within 24 hours
Subjective/Interval History
-
Date of Service: October 01, 2023
Resting comfortably in chair
No reported issues overnight
Remains on 4L oxygen through nasal cannula
Objective Data
-
Vital Signs:
Vital Signs
Temp Pulse Resp BP Pulse Ox
98.1 F 72 16 134/72 98
10/01/23 07:00 10/01/23 14:45 10/01/23 14:45 10/01/23 07:00 10/01/23 14:45
I&O
09/30/23 10/01/23 10/02/23
06:59 06:59 06:59
Intake Total 1185 / 1185 2550 / 2550 240 / 240
Output Total 1250 / 1250 1900 / 1900 175 / 175
Balance -65 / -65 650 / 650 65 / 65
Review of Systems
-
Respiratory: Reports No Symptoms
Cardiac: Reports No Symptoms
Abdomen/GI: Reports No Symptoms
Physical Exam
-
General: No Apparent Distress
HEENT: Moist Mucous Membranes and Oxygen
Respiratory: Clear to Auscultation
GI: Soft, Nontender and Nondistended
Musculoskeletal: No Edema
Neuro: Awake and Alert
Psych: Calm
[2023-10-01 15:00] VITALS: BP 130/76
[2023-10-01] MEDS: STERILE WATER FOR INJECTION IV ×2 (15:57→22:37)
--- NOTE | 2023-10-01 16:24 | PTCARENOTE ---
Pt oob to chair all day. Worked w/ PT and cleared to ambulate w/o walker. Took several walks around unit w/ staff. Forgetful and set off chair alarm numerous times but easily redirected by staff and/or med sitter.
[2023-10-01 16:47] LABS: Glucose - Point of Care 193 mg/dl (70-99)
[2023-10-01] MEDS: LOVENOX 40 MG SC (17:41)
[2023-10-01 21:10] LABS: Glucose - Point of Care 197 mg/dl (70-99)
[2023-10-01] MEDS: FLOMAX 0.400000000000000022 MG PO (22:36)
[2023-10-01] MEDS: ZYPREXA 30 MG PO (22:36)
[2023-10-01] MEDS: SEROQUEL 50 MG PO (22:36)
[2023-10-01 23:37] VITALS: BP 158/97
[2023-10-02] MEDS: STERILE WATER FOR INJECTION IV ×2 (03:20→09:59)
[2023-10-02] MEDS: SYNTHROID 200 MCG PO (05:41)
[2023-10-02 07:15] VITALS: BP 129/66
[2023-10-02] MEDS: DUONEB 3 ML INH ×2 (07:25→11:17)
[2023-10-02] MEDS: PULMICORT 0.5 MG INH (07:25)
[2023-10-02 08:04] LABS: Glucose - Point of Care 159 mg/dl (70-99)
[2023-10-02] MEDS: JANUVIA 100 MG PO (09:52)
[2023-10-02] MEDS: PROTONIX 40 MG PO (09:53)
[2023-10-02] MEDS: DEPAKOTE (12 HR RELEASE) 1000 MG PO (09:53)
[2023-10-02] MEDS: DEPAKOTE (12 HR RELEASE) 250 MG PO (09:53)
[2023-10-02] MEDS: LIPITOR 20 MG PO (09:54)
[2023-10-02] MEDS: CLARITIN 10 MG PO (09:54)
[2023-10-02] MEDS: GLUCOPHAGE 500 MG PO (09:54)
[2023-10-02] MEDS: VITAMIN B-12 500 MCG PO (09:54)
[2023-10-02] MEDS: LANTUS 0.100000000000000006 UNITS SC (09:55)
[2023-10-02] MEDS: CARDIZEM CD 120 MG PO (09:55)
[2023-10-02] MEDS: NOVOLOG FLEXPEN-LOW RESISTANCE 1 UNITS SC (09:56)
[2023-10-02 12:24] LABS: Glucose - Point of Care 347 mg/dl (70-99)
[2023-10-02] MEDS: NOVOLOG FLEXPEN-LOW RESISTANCE 4 UNITS SC (13:29)
--- NOTE | 2023-10-02 13:53 | W.PN.HOSP.TC ---
Addendum entered and electronically signed by Burak Donato MD 10/02/23 17:12:
[id number]
Original Note:
Today's Communication/Plan
-
switch to cefdinir and flagyl to complete 7 day course of abx
Evaluated by speech-cleared for IDDSI 6 diet.
F/u PCP, Pulmonary Outpatient
Assessment / Plan
Assessment / Plan
Altered mental status secondary to encephalopathy from hypercapnic respiratory failure. Remains improved.
Acute on chronic hypoxic respiratory failure.
Chronic Hypercapnic Respiratory Failure
-Required BiPAP therapy with improvement of hypercapnic respiratory failure. Mentation back to normal
-Patient normally on 4 L of oxygen via nasal cannula for chronic hypoxic respiratory insufficiency.
-Pulmo help appreciated
Continue nocturnal BiPAP and with naps.
Aspiration pneumonia
Fever with tachypnea and bandemia ongoing and with sepsis at admission, resolved at this point,
Maintained on empiric cefepime and Flagyl - switch to cefdinir and flagyl to complete 7 day course of abx
Evaluated by speech-cleared for IDDSI 6 diet.
COPD
-No signs of exacerbation at this point
Hypertension
-cw oral home medications
Diabetes mellitus
Schizophrenia
Full code
DVT prophylaxis with Lovenox
More than 30 minutes spent in discharge including
Final examination of the patient
Summarizing hospital stay
Instructions for continuing care to all relevant caregivers
Preparation of discharge records, prescriptions, and referral forms
Total time spent (35 in minutes):
Anticipated Discharge: Today
Subjective/Interval History
-
Date of Service: October 02, 2023
No acute events overnight, doing better
Objective Data
-
Vital Signs:
Vital Signs
Temp Pulse Resp BP Pulse Ox
97.3 F 70 14 129/66 99
10/02/23 07:15 10/02/23 11:19 10/02/23 11:19 10/02/23 07:15 10/02/23 07:15
I&O
10/01/23 10/02/23 10/03/23
06:59 06:59 06:59
Intake Total 2550 / 2550 960 / 960
Output Total 1900 / 1900 1075 / 1075
Balance 650 / 650 -115 / -115
Review of Systems
-
History Source: Patient
All other systems: Not reviewed unless documented
Physical Exam
-
General: No Apparent Distress
HEENT: Moist Mucous Membranes and Oxygen
Respiratory: Clear to Auscultation
GI: Soft, Nontender and Nondistended
Musculoskeletal: No Edema
Neuro: Awake and Alert
Psych: Calm
Data Reviewed
-
Labs: Labs Reviewed by me
--- NOTE | 2023-10-02 13:57 | W.DS.TRANS ---
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
-
Discharge Instructions:
Discharge Diagnosis/Procedures Acute hypoxic and hypercapnic respiratory
failure
Aspiration pneumonia
Diet Low Fat,Low Cholesterol,Other diet
Additional Diets soft and bite sized -
Activity As tolerated
Instructions:
Stand-Alone Forms:
Changes to Home Medications: Yes
Discharge Medications:
DC Medications w/original date entered in [facility]
sitagliptin phosphate 100 mg tablet (Januvia) 100 mg PO DAILY Diabetes 10/12/18
fexofenadine 180 mg tablet 180 mg PO DAILY Allergies 07/08/19
levothyroxine 200 mcg tablet 200 mcg PO DAILY@0600 Thyroid 07/08/19
acetaminophen 325 mg tablet (Tylenol) 650 mg PO Q4HPRN PRN mild pain 04/24/23
atorvastatin 20 mg tablet 20 mg PO DAILY High Cholesterol 04/24/23
ipratropium 0.5 mg-albuterol 3 mg (2.5 mg base)/3 mL nebulization soln 3 ml inhalation R BID Lung/Breathing Issues 04/24/23
polyethylene glycol 3350 17 gram oral powder packet (Miralax) 17 g PO DAILYPRN PRN constipation 04/25/23
cyanocobalamin (vitamin B-12) 500 mcg tablet 500 mcg PO DAILY Supplement 06/17/23
divalproex 250 mg tablet,delayed release 250 mg PO BID@0800,1999 mental health 06/17/23
divalproex 500 mg tablet,delayed release 1,000 mg PO BID@0800,1999 mental health 06/17/23
metformin 500 mg tablet 500 mg PO BID@0800,1999 Diabetes 06/17/23
amlodipine 5 mg tablet 5 mg PO DAILY Blood Pressure 07/18/23
diltiazem HCl 120 mg capsule,extended release 24 hr 120 mg PO DAILY Heart Disease/Condition 07/18/23
insulin glargine 100 unit/mL (3 mL) subcutaneous pen (Lantus Solostar U-100 Insulin) 10 unit SC DAILY Diabetes 07/18/23
omeprazole 20 mg capsule,delayed release 20 mg PO DAILY Gastrointestinal Issue 07/18/23
tamsulosin 0.4 mg capsule 0.4 mg PO HS Urinary Issue 07/18/23
albuterol sulfate 90 mcg/actuation aerosol inhaler 2 puff inhalation R Q4HPRN PRN copd 09/13/23
aluminum hydrox-magnesium carb 95 mg-358 mg/15 mL oral suspension (Acid Gone Antacid) 15 ml PO DAILYPRN PRN acid 09/13/23
insulin regular human 100 unit/mL (3 mL) subcutaneous pen (Novolin R FlexPen) 3 - 14 sliding scale dose SC ACHS 09/13/23
olanzapine 15 mg tablet 30 mg PO HS 09/13/23
quetiapine 50 mg tablet 50 mg PO HS 09/13/23
ipratropium 0.5 mg-albuterol 3 mg (2.5 mg base)/3 mL nebulization soln 3 ml inhalation R Q4HPRN PRN sob 09/27/23
cefdinir 300 mg capsule 300 mg PO BID 3 days #6 caps 10/02/23
metronidazole 500 mg tablet 500 mg PO Q8H 3 days #9 tabs 10/02/23
Home Medication Changes
cefdinir 300 mg capsule 300 mg PO BID 3 days #6 caps 10/02/23
metronidazole 500 mg tablet 500 mg PO Q8H 3 days #9 tabs 10/02/23
Pending Results: No
--- NOTE | 2023-10-02 14:35 | CM ---
Call to [facility] and spoke with the Director, Pilar. She is agreeable to Oren returning today; she has already contacted the [facility] for an assessment.
W/C van transport requested for return to [facility] with O2 at 2L. They do not wish to have home care services, and Oren is managing well with ambulation.
Plan: Discharge to [facility] today.
[facility]
Report [phone]
[2023-10-02] MEDS: ROCEPHIN 1000 MG IV (14:37)
[2023-10-02] MEDS: STERILE WATER FOR INJECTION 10 ML IV (14:38)
[2023-10-02] MEDS: DUONEB INH (14:51)
[2023-10-02 15:01] VITALS: BP 137/78
== END 2023-10-02 03:00 | DRG 871 ==
LOC: 4 WEST ACU 13:21
PROVIDERS: Physician Assistant; ADMITTING PHYSICIAN Internal Medicine; ATTENDING PHYSICIAN Internal Medicine; CONSULT PHYSICIAN Internal Medicine Critical Care Medicine; EMERGENCY PHYSICIAN Emergency Medicine
PROC: 5A09357 Assistance with Respiratory Ventilation, Less than 24 Consecutive Hours, Continuous Positive Airway Pressure (ICD-10-PCS; 2023-09-27)
DX: A41.9 Sepsis, unspecified organism (principal); G92.8 Other toxic encephalopathy; J96.22 Acute and chronic respiratory failure with hypercapnia; J69.0 Pneumonitis due to inhalation of food and vomit; J96.21 Acute and chronic respiratory failure with hypoxia; E66.2 Morbid (severe) obesity with alveolar hypoventilation; K21.9 Gastro-esophageal reflux disease without esophagitis; I10 Essential (primary) hypertension; E11.9 Type 2 diabetes mellitus without complications; J44.9 Chronic obstructive pulmonary disease, unspecified; E03.9 Hypothyroidism, unspecified; F20.9 Schizophrenia, unspecified; D64.9 Anemia, unspecified; G40.909 Epilepsy, unspecified, not intractable, without status epilepticus; H54.8 Legal blindness, as defined in USA; I35.0 Nonrheumatic aortic (valve) stenosis; Z86.16 Personal history of COVID-19; Z87.891 Personal history of nicotine dependence; Z99.81 Dependence on supplemental oxygen; Z68.31 Body mass index [BMI] 31.0-31.9, adult; Z11.52 Encounter for screening for COVID-19; Z79.84 Long term (current) use of oral hypoglycemic drugs; Z79.890 Hormone replacement therapy; Z79.4 Long term (current) use of insulin; Z79.899 Other long term (current) drug therapy
CPT/HCPCS: 36600; 71045; 71046; 74230; 80048; 80053; 82805; 82962; 83036; 83605; 83880; 84145; 84484; 85025; 85027; 87040; 87502; 87641; 87811; 92610; 92611; 93005; 94640; 94660; 96365; 96366; 96367; 96375; 97161; 97165; 97530; 99285; 99291

== ENCOUNTER 2023-10-14 13:20 | Inpatient (IN) | payer MEDICARE, SELFPAY ==
[2023-10-14] VITALS (7 sets, daily range): BP systolic 114–142; BP diastolic 60–76; BMI 30.4
--- NOTE | 2023-10-14 10:09 | ED.GENMED ---
History of Present Illness
General
Chief Complaint: Breathing Problem
Source: patient, records and ambulance crew
Time Seen by Provider: 10/14/23 10:04
History of Present Illness
History of Present Illness:
63-year-old male with past medical history of developmental delay, COPD (on chronic 2 L via nasal cannula) [id number] diabetes, schizophrenia presenting to the emergency department for evaluation of increased shortness of breath over the
last 24 hours, patient's staff at his facility noting that he needed increased O2 requirements and is now needing 4 L via nasal cannula. Patient does endorse a slight cough but states no sputum production. Unaware of any fevers. Denies any chest
pain, palpitations, diaphoresis, peripheral edema, orthopnea, pleurisy or any other concerns. He does state that once he had his oxygen increased he started to feel little bit better but still notes some shortness of breath. It is unknown as to if
patient did receive any breathing to minutes prior to arrival to the ER.
Past History
Past History
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 Limited vision on left eye. )
ED Past Surgical History: None
Social History
Tobacco: Former smoker
Alcohol: None
Drug: None
Personal: Single
Living: group home
Employment: Disabled
Family History
Family History: Other (Reviewed and noncontributory)
Review of Systems
Review of Systems
All Other Systems: ROS reviewed and negative except as documented in HPI and ROS
Phy Exam
Physical Exam
Physical Exam:
GENERAL: Alert , in no apparent distress, appears older than stated age
Head: Normocephalic atraumatic
EYE: conjunctiva clear
NECK: Supple
ENT: o/p clr, mmm.
CARDIAC: Regular rate and rhythm
LUNGS: Diminished lung sounds throughout with scattered wheezing more pronounced within the right posterior lung shi
NEUROLOGICAL: Alert and oriented
SKIN: Warm and dry, skin intact.
MUSCULOSKELETAL: well perfused. No edema
PSYCH: Normal and appropriate interaction.
Scores
Heart Failure Risk
Heart Failure Risk Score: Not Applicable
Heart Score for Chest Pain Patients
STEMI patient?: Not applicable
Withdrawal Assessment of Alcohol
Withdrawal Assessment Completed?: Not applicable
Course
Orders/Labs/Results
Orders:
Orders
10/14/23 Lunch
IDDSI 6 - Soft & Bite Sized
At Your Request: Full Participation
Fluid Restriction: 1440 mL/day (48 oz)
Dysphagia Diet: 1999 jack/17 CHO Diabetic
10/14/23 10:08
Albuterol Nebs [Ventolin Nebules] 2.5 mg INH R NOW STA
Ipratropium/Albuterol Sulfate [Duoneb] 3 ml INH R NOW ONE
MethylPREDNISolone PF [Solu-Medrol Pf] 60 mg IV NOW STA
CR Chest - 2 Views Urgent
Comment:
Reason For Exam: SOB, recent pneumonia, COPD
10/14/23 10:22
Basic Metabolic Panel Urgent
Complete Blood Count/With Diff Urgent
NT-proBNP Urgent
10/14/23 12:45
COVID-19 Antigen Routine
Source: Nasal Swab
Procalcitonin Routine
PCT Algorithmm Indication: Respiratory
10/14/23 13:02
Admit/Transfer Patient As Directed
Co-Sign Provider:
Level of Care: Inpatient admission
Assign to:: Medical/Surgical
Physician / Group: [facility]
Diagnosis: COPD Exacerbation
Reason for Hospitalization: IV steroids, nebs
Expected length of stay greater than two midnights?: Yes
ELOS- Estimated Length of Stay in days: 2
I certify the patient meets the requirements for IP care: Yes
10/14/23 13:04
Code Status As Directed
Resuscitation Status: Full Code
Abnormal Lab Results
10/14/23
10:22
RBC 3.58 L 10^6/uL
(4.70-6.10)
Hgb 11.5 L g/dL
(13.0-18.0)
Hct 35.9 L %
(39.0-52.0)
MCV 100.3 H fL
(80.0-94.0)
MCH 32.1 H pg
(27.0-31.0)
MCHC 32.0 L g/dL
(33.0-37.0)
RDW 14.6 H %
(11.5-14.5)
MPV 11.2 H fL
(7.4-10.4)
Abs Immat Gran (auto) 0.1 H 10^3/uL
(0-0.05)
Absolute Lymphs (auto) 0.8 L 10^3/uL
(1.2-3.4)
Absolute Monos (auto) 0.7 H 10^3/uL
(0.1-0.6)
Immature Gran % 1.4 H %
(0-0.5)
Lymphocytes % 17.1 L %
(20.5-51.1)
Monocytes % 14.6 H %
(1.7-9.3)
Chloride 96 L mmol/L
(98-107)
Carbon Dioxide 38 H mmol/L
(22-30)
BUN 23 H mg/dl
(9-20)
Creatinine 0.6 L mg/dL
(0.7-1.3)
Glucose 247 H mg/dl
(70-99)
10/14/23 10:22
10/14/23 10:22
Vital Signs
Initial and Last Documented VS:
Initial Vital Signs
Pulse Ox
94
10/14/23 10:06
Last Documented Vital Signs
Temp Pulse Resp BP Pulse Ox
98.5 F 79 17 119/68 84
10/14/23 10:07 10/14/23 13:15 10/14/23 13:15 10/14/23 13:00 10/14/23 13:15
MDM/Problems Addressed
Differential Diagnosis Includes:
COPD exacerbation, pneumonia, pleural effusion, CHF
MDM/Problems Addressed:
63-year-old male presenting to the emergency department for evaluation of increasing shortness of breath over the last 24 hours, today needed to increase his baseline 2 L via nasal cannula at 4. He arrives to the ER on 4 L via nasal cannula at 95%.
He does seem a little bit exertionally dyspneic as he started pursed lip breathing after just sitting forward in the hospital bed. Lung sounds very restricted with faint wheezing throughout. Will treat with steroid and nebulizer treatments. Labs
and chest x-ray ordered. Disposition pending. Patient was recently admitted at this facility and discharged on October 01 for a COPD exacerbation that was suspected to be triggered by an aspiration pneumonia. He was discharged on oral antibiotics and
completed this about 5 days ago.
Chronic conditions affecting care: COPD
Acute Exacerbation and/or Progression of Chronic Illness: COPD
*Radiology
Radiology exam reviewed: preliminary read by ED provider (Improving right lower lobe pneumonia)
*Pulse Oximetry
Patient hypoxic: yes
*Logging Operations Inspector Interpretation
Rate: normal
Rhythm: sinus
*Critical Care Note
Total Time (30-74mins, 75-104mins- exclusive of procedures): Not Applicable
Data Reviewed
Review of Other/Old Records Reveals: Labs, Records and Discharge Summary
Source: patient, records and ambulance crew
Patient Management
Discussion with other providers: Hospitalist
Escalation/DeEscalation of care consider admission/obs:
On reevaluation patient with continued wheezing although notes he feels a little bit better. Oxygen saturation still will drop to around 90% on 4 L intermittently but will go back up to around 95% when taking deep inspiration. Given apparent COPD
exacerbation will admit for continued evaluation and monitoring. Hospitalist team is aware and accepts for continued evaluation and treatment.
ED Attending Note
-
Portions of this chart may have been created with voice recognition software.� Occasional wrong word or��sound alike� substitutions may have occurred due to the inherent limitations of voice recognition software.
Discharge Plan
Departure
Patient Disposition: Admit
Date of Disposition: 10/14/23
Time of Disposition: 11:52
Presentation/result/management discussed w/ accepting MD/DO: Hospitalist
Discharge Problem:
Acute exacerbation of chronic obstructive pulmonary disease
Interventions
Interventions:
*Risk Screen - Suicide Last Done: 10/14/23 10:07
*General Assessment Last Done: 10/14/23 10:07
*Neglect/Abuse Screening Last Done: 10/14/23 10:07
*ED COVID-19 Vaccine History Last Done: 10/14/23 10:07
ED- Cardiac Assessment Last Done: 10/14/23 10:07
ED- Pulmonary Assessment Last Done: 10/14/23 10:41
[2023-10-14] MEDS: VENTOLIN NEBULES 2.5 MG INH (10:17)
[2023-10-14] MEDS: SOLU-MEDROL PF 60 MG IV (10:18)
[2023-10-14] MEDS: DUONEB 3 ML INH ×2 (10:18→18:14)
[2023-10-14 10:30] LABS: % Basophils 0.4 % (0-2); % Eosinophils 1.2 % (0-6); % Immature Granulocytes 1.4 % (0-0.5); % Lymphocytes 17.1 % (20.5-51.1); % Monocytes 14.6 % (1.7-9.3); % Neutrophils 65.3 % (42.2-75.2); Absolute Eosinophils 0.1 10^3/uL (0-0.7); Absolute Immature Granulocytes 0.1 10^3/uL (0-0.05); Absolute Lymphocytes 0.8 10^3/uL (1.2-3.4); Absolute Monocytes 0.7 10^3/uL (0.1-0.6); Absolute Neutrophils 3.2 10^3/uL (1.4-6.5); Hematocrit 35.9 % (39.0-52.0); Hemoglobin 11.5 g/dL (13.0-18.0); Mean Corpuscular Hgb 32.1 pg (27.0-31.0); Mean Corpuscular Volume 100.3 fL (80.0-94.0); Mean Platelet Volume 11.2 fL (7.4-10.4); Nucleated Red Blood Cells % 0 % (-); Platelet Count 175 10^3/uL (130-400); Red Blood Cell Count 3.58 10^6/uL (4.70-6.10); Red Cell Dist. Width 14.6 % (11.5-14.5); White Blood Cell Count 4.9 10^3/uL (4.8-10.8)
[2023-10-14 10:42] LABS: Blood Urea Nitrogen 23 mg/dl (9-20); Calcium 9.4 mg/dl (8.4-10.2); Carbon Dioxide 38 mmol/L (22-30); Chloride 96 mmol/L (98-107); Glucose 247 mg/dl (70-99); Potassium 4.7 mmol/L (3.5-5.1); Sodium 138 mmol/L (135-145); eGFR > 60.00
[2023-10-14 10:50] LABS: NT-proBNP 90.5 pg/ml
--- NOTE | 2023-10-14 13:08 | HPS.HSE ---
Family Physician
-
Family Physician: NOT KNOW UNKNOWN - PT DOES
Chief Complaint
-
Shortness of Breath
History of Present Illness
Patient is a 63 y/o male past medical history of COPD, chronic respiratory failure on 2 L O2, hypertension, diabetes, epilepsy and schizophrenia who presents with shortness of breath. Patient is a limited historian. He was recently admitted to
[facility] at the end of September with aspiration pneumonia. He completed that course of antibiotics following discharge. He notes his shortness of breath has been about the same since discharge. He denies significant cough, fever, sweats or
chills. He reports improvement following nebulizer treatment given in the emergency department.
Medical History
Past Medical History
Past Medical History: Reports Other
Additional Past Medical History:
Chronic Hypoxic/Hypercarbic Respiratory Failure
COPD
Essential Hypertension
Hyperlipidemia
Diabetes Mellitus, Type II
Hypothyroidism
Epilepsy
Schizophrenia
GERD
BPH
Renal Calculi
Glaucoma
Legal Blindness
Past Surgical History: Reports Other
Additional Past Surgical History:
Cholecystectomy
Social History
Tobacco: Other (Unknown)
Living: Other (Intermediate)
Family History
Family History: Not pertinent
Allergies / Home Medications
Allergies reflects when Allergies were last updated in [employer].
Home Medications with original date entered in [employer]
Allergy/Medication List:
Allergies
Allergy/AdvReac Type Severity Reaction Status Date / Time
No Known Allergies Allergy Verified 10/14/23 10:33
Home Medications
fexofenadine 180 mg tablet 180 mg PO DAILY Allergies 07/08/19
levothyroxine 200 mcg tablet 200 mcg PO DAILY@0600 Thyroid 07/08/19
acetaminophen 325 mg tablet (Tylenol) 650 mg PO Q4HPRN PRN mild pain 04/24/23
atorvastatin 20 mg tablet 20 mg PO DAILY High Cholesterol 04/24/23
polyethylene glycol 3350 17 gram oral powder packet (Miralax) 17 g PO DAILYPRN PRN constipation 04/25/23
cyanocobalamin (vitamin B-12) 500 mcg tablet 500 mcg PO DAILY Supplement 06/17/23
divalproex 250 mg tablet,delayed release 250 mg PO BID@08,1999 mental health 06/17/23
divalproex 500 mg tablet,delayed release 1,000 mg PO BID@08,1999 mental health 06/17/23
metformin 500 mg tablet 500 mg PO BID@799,1999 Diabetes 06/17/23
albuterol sulfate 90 mcg/actuation aerosol inhaler 2 puff inhalation R Q4HPRN PRN copd 09/13/23
ipratropium 0.5 mg-albuterol 3 mg (2.5 mg base)/3 mL nebulization soln 3 ml inhalation R Q4HPRN PRN sob 09/27/23
atenolol 25 mg tablet 25 mg PO DAILY 10/14/23
dorzolamide 22.3 mg-timolol 6.8 mg/mL eye drops 1 drp ophthalmic (eye) BID 10/14/23
fluticasone fur. 100 mcg-umeclid 62.5 mcg-vilant 25 mcg inhalat.powder (Trelegy Ellipta) 1 inh inhalation DAILY 10/14/23
hydroxyzine pamoate 50 mg capsule 50 mg PO DAILY@199910/14/23
iloperidone 12 mg tablet 12 mg PO DAILY@199910/14/23
insulin glulisine U-100 100 unit/mL subcutaneous pen (Apidra SoloStar U-100 Insulin) 1 sliding scale dose SC DIRECTED 10/14/23
lisinopril 2.5 mg tablet 2.5 mg PO DAILY 10/14/23
olanzapine 20 mg tablet 20 mg PO DAILY@199910/14/23
sitagliptin phosphate 100 mg tablet (Januvia) 100 mg PO DAILY 10/14/23
Review of Systems
-
A 12 point ROS was completed and negative except as noted: Yes
Constitutional: Denies Fever or Chills
Respiratory: Reports See HPI
Cardiac: Denies Chest Pain or Palpitations
Physical Exam
Vital Signs
Vital Signs
Temp Pulse Resp BP Pulse Ox
98.5 F 81 23 131/74 93
10/14/23 10:07 10/14/23 11:15 10/14/23 11:15 10/14/23 10:08 10/14/23 11:15
Physical Exam
General: Comfortable and Conversant
HEENT: NormoCephalic, Anicteric and Oxygen (Nasal Cannula)
Respiratory: Rales (Right middle region) and Decreased Breath Sounds (Poor inspiratory effort)
Cardiac: S1/S2, Regular Rhythm and Murmur (2/6 heard best at left sternal border)
GI: Soft, Non Tender and Other (Protuberant)
Rectal: Deferred by Provider
Musculoskeletal: No Clubbing, No Cyanosis and Other (+1 pitting edema bilateral lower ext)
Skin: Warm and Dry
Neuro: Awake, Alert, Oriented and Nonfocal/grossly intact
Psych: Calm
Laboratory Results
-
10/14/23 10:22
10/14/23 10:22
Data Reviewed
-
Diagnostic Radiology: Report Reviewed by me
Lab Data: Labs Reviewed by me
Old Records: Reviewed
Impression/Plan
-
Acute COPD Exacerbation
-Continue Decadron 4mg Q12
-Continue DuoNeb QID and PRN
-Continue Pulmicort Neb in place of Trelegy
Chronic Hypoxic/Hypercarbic Respiratory Failure
-Continue supplemental oxygen via nasal cannula, 2L at baseline
Essential Hypertension
-Continue atenolol and lisinopril
Hyperlipidemia
-Continue atorvastatin
Diabetes Mellitus, Type II
-Continue metformin, and sitagliptin
-Monitor sugars and continue coverage insulin
Hypothyroidism
-Continue levothyroxine
Epilepsy
-Continue Depakote
Schizophrenia
-Continue hydroxyzine, iloperidone, olanzapine
Dysphagia
-Continue IDDSI 6 (Soft and Bite Sized)
GERD
-Continue Protonix
DVT proph: Lovenox
Code Status: Full Code
--- NOTE | 2023-10-14 13:17 | W.PN.UPDATE ---
Update Note
Progress Note Update
This is an update note for H&P written by FLORESITA James
I saw and examined the patient.
The HYDROELECTRIC POWERPLANT SUPERVISOR's note was reviewed and I agree with the note.
Comment:
Mr. Oren Velazquez is a 63-year-old man with history of COPD, on 4 L of oxygen, history of schizophrenia, resident at a [facility], recent admission 09/26-10/01 for aspiration PNA and COPD exacerbation presents to the ER with wheezing and
increased oxygen needs. Triage vitals stable on 4L. On exam patient is legally blind, conversant, decreased breath sounds with mild end expiratory wheezing, no LE swelling.
CXR
with improved RLL PNA, chronic COPD
Patient will be admitted for acute on chronic hypoxic respiratory failure in setting of COPD exacerbation
-continue IV steroids, duonebs
-obtain procal
-check covid
[2023-10-14 15:35] LABS: COVID-19 Antigen Negative (Negative)
[2023-10-14 15:46] LABS: Procalcitonin < 0.05 ng/ml (0.0-0.25)
[2023-10-14] MEDS: DUONEB INH (16:54)
[2023-10-14 17:21] LABS: Glucose - Point of Care 326 mg/dl (70-99)
[2023-10-14] MEDS: GLUCOPHAGE 500 MG PO (17:48)
[2023-10-14] MEDS: NOVOLOG FLEXPEN-LOW RESISTANCE 4 UNITS SC (17:49)
[2023-10-14] MEDS: LOVENOX 40 MG SC (17:51)
[2023-10-14] MEDS: PULMICORT 0.5 MG INH (18:14)
[2023-10-14 21:08] LABS: Glucose - Point of Care 357 mg/dl (70-99)
[2023-10-14] MEDS: COSOPT EYE DROPS 1 DROP BOTH EYES (21:49)
[2023-10-14] MEDS: DECADRON 4 MG IV (21:49)
[2023-10-14] MEDS: DEPAKOTE (12 HR RELEASE) 250 MG PO (21:50)
[2023-10-14] MEDS: ZYPREXA 20 MG PO (21:50)
[2023-10-14] MEDS: ATARAX 50 MG PO (21:50)
[2023-10-14] MEDS: DEPAKOTE (12 HR RELEASE) 1000 MG PO (21:50)
[2023-10-15] MEDS: SYNTHROID 200 MCG PO (06:27)
[2023-10-15 07:05] VITALS: BP 123/69
[2023-10-15 07:41] LABS: Glucose - Point of Care 254 mg/dl (70-99)
[2023-10-15 07:58] LABS: Hematocrit 33.9 % (39.0-52.0); Mean Corp Hgb Conc. 32.4 g/dL (33.0-37.0); Mean Corpuscular Volume 98.5 fL (80.0-94.0); Mean Platelet Volume 11.6 fL (7.4-10.4); Platelet Count 182 10^3/uL (130-400); Red Blood Cell Count 3.44 10^6/uL (4.70-6.10); Red Cell Dist. Width 14.5 % (11.5-14.5); White Blood Cell Count 3.7 10^3/uL (4.8-10.8)
[2023-10-15] MEDS: PULMICORT 0.5 MG INH ×2 (08:04→19:51)
[2023-10-15] MEDS: DUONEB 3 ML INH ×4 (08:04→19:51)
[2023-10-15] MEDS: NOVOLOG FLEXPEN-LOW RESISTANCE 3 UNITS SC ×2 (08:14→11:47)
[2023-10-15] MEDS: VITAMIN B-12 500 MCG PO (08:17)
[2023-10-15] MEDS: DECADRON 4 MG IV ×2 (08:17→21:01)
[2023-10-15] MEDS: GLUCOPHAGE 500 MG PO ×2 (08:18→17:07)
[2023-10-15] MEDS: CLARITIN 10 MG PO (08:18)
[2023-10-15] MEDS: DEPAKOTE (12 HR RELEASE) 250 MG PO ×2 (08:18→21:00)
[2023-10-15] MEDS: TENORMIN 25 MG PO (08:18)
[2023-10-15] MEDS: PROTONIX 40 MG PO (08:18)
[2023-10-15] MEDS: LIPITOR 20 MG PO (08:18)
[2023-10-15] MEDS: JANUVIA 100 MG PO (08:18)
[2023-10-15] MEDS: ZESTRIL 2.5 MG PO (08:19)
[2023-10-15 08:35] LABS: Blood Urea Nitrogen 22 mg/dl (9-20); Calcium 9.4 mg/dl (8.4-10.2); Carbon Dioxide 37 mmol/L (22-30); Chloride 95 mmol/L (98-107); Estimated Creatinine Clearance > 125 ml/min; Glucose 224 mg/dl (70-99); Magnesium 1.6 mg/dl (1.6-2.3); Potassium 4.5 mmol/L (3.5-5.1); Sodium 138 mmol/L (135-145); eGFR > 60.00
[2023-10-15] MEDS: COSOPT EYE DROPS 1 DROP BOTH EYES ×2 (09:07→20:59)
[2023-10-15] MEDS: DEPAKOTE (12 HR RELEASE) 1000 MG PO ×2 (09:07→21:00)
--- NOTE | 2023-10-15 11:01 | W.PN.HOSP.TC ---
Today's Communication/Plan
-
IV Decadron, likely transition to oral prednisone tomorrow
home O2 testing tomorrow AM
Assessment / Plan
Assessment / Plan
Mr. Oren Velazquez is a 63-year-old man with history of COPD, on 4 L of oxygen, history of schizophrenia, resident at a [facility], recent admission 09/26-10/01 for aspiration PNA and COPD exacerbation presents to the ER with wheezing and
increased oxygen needs.
CXR
with improved RLL PNA, chronic COPD
Patient will be admitted for acute on chronic hypoxic respiratory failure in setting of COPD exacerbation
-continue IV steroids, duonebs
-procal negative, covid negative
-does not have increased sputum production, hold off on abx
-some improvement today but remains on 4L
-will continue IV steroids one more day, possible transition to oral prednisone tomorrow
-PT consult
Chronic Hypoxic/Hypercarbic Respiratory Failure
-Continue supplemental oxygen via nasal cannula, 2L at baseline
Essential Hypertension
-Continue atenolol and lisinopril
Hyperlipidemia
-Continue atorvastatin
Diabetes Mellitus, Type II
-Continue metformin, and sitagliptin
-Monitor sugars and continue coverage insulin
Hypothyroidism
-Continue levothyroxine
Epilepsy
-Continue Depakote
Schizophrenia
-Continue hydroxyzine, iloperidone, olanzapine
Dysphagia
-Continue IDDSI 6 (Soft and Bite Sized)
GERD
-Continue Protonix
DVT proph: Lovenox
Code Status: Full Code
Anticipated Discharge: 24 - 48 hours
Subjective/Interval History
-
Date of Service: October 15, 2023
feeling better this morning
no sputum production
seen sitting up on edge of bed
Objective Data
-
Labs:
Laboratory Results
10/15/23
06:38
WBC 3.7 L
Hgb 11.0 L
Hct 33.9 L
Plt Count 182
Sodium 138
Potassium 4.5
Chloride 95 L
Carbon Dioxide 37 H
BUN 22 H
Creatinine 0.5 L
Glucose 224 H
Calcium 9.4
Vital Signs:
Vital Signs
Temp Pulse Resp BP Pulse Ox
97.3 F 95 18 123/69 94
10/15/23 07:05 10/15/23 08:18 10/15/23 08:08 10/15/23 08:18 10/15/23 08:08
I&O
10/14/23 10/15/23 10/16/23
06:59 06:59 06:59
Intake Total 1200 / 1200
Output Total 1450 / 1450
Balance -250 / -250
Review of Systems
-
History Source: Patient
All other systems: Reviewed and negative
Physical Exam
-
General: No Apparent Distress
HEENT: Other (legally blind)
Respiratory: Other (improved air movement ); Negative Wheezes
Cardiac: Regular Rhythm and S1/S2
GI: Soft and Nontender
Musculoskeletal: No Edema
Skin: Warm and Dry; Negative Rash
Neuro: AO x 3
Psych: Calm
Data Reviewed
-
Diagnostic Radiology: Report Reviewed by me
Labs: Labs Reviewed by me
[2023-10-15 11:36] LABS: Glucose - Point of Care 253 mg/dl (70-99)
--- NOTE | 2023-10-15 12:17 | PTCARENOTE ---
Dr Solo stated pt does not need to have a gluid restriction any longer. She will remove it from his diet order.
--- NOTE | 2023-10-15 12:20 | CM ---
Patient seen bedside.
IA completed.
DX COPD
Patient lives at [facility] [phone] for nursing to review pharmacy and transportation when stable for d/c.
Hx intellectual disability, schizophrenia
Patient lives in a 2 story home and bed and bath is on the 1st floor.
Per patient he is on chronic oxygen, does not use assistive devices and does not get PT/OT.
Patient believes [facility] will transport him back.
PCP: Dr Edwards
Pharmacy: patient unsure, noted to be [facility] on prior admission with a fax # of [phone].
Plan: back to [facility], no needs anticpated.
[2023-10-15 14:11] VITALS: BP 113/56; PULSE 76; O2SAT 97
[2023-10-15 15:04] VITALS: O2SAT 83
[2023-10-15 15:10] VITALS: BP 110/59
[2023-10-15 16:57] LABS: Glucose - Point of Care 371 mg/dl (70-99)
[2023-10-15] MEDS: LOVENOX 40 MG SC (17:08)
[2023-10-15] MEDS: NOVOLOG FLEXPEN-LOW RESISTANCE 5 UNITS SC (17:08)
[2023-10-15] MEDS: ZYPREXA 20 MG PO (20:59)
[2023-10-15] MEDS: ATARAX 50 MG PO (21:00)
[2023-10-15 21:14] LABS: Glucose - Point of Care 323 mg/dl (70-99)
[2023-10-15 23:24] VITALS: BP 127/76
[2023-10-16 06:00] VITALS: BMI 30.1
[2023-10-16] MEDS: SYNTHROID 200 MCG PO (06:12)
[2023-10-16] MEDS: PULMICORT 0.5 MG INH (07:47)
[2023-10-16] MEDS: DUONEB 3 ML INH ×3 (07:47→15:18)
[2023-10-16 07:49] VITALS: BP 117/54
--- NOTE | 2023-10-16 07:53 | PTCARENOTE ---
Messaged provider to ask if MD would like to increase patient's SSI to moderate or high resistance d/t hyperglycemia throughout the previous day. Awaiting any necessary orders.
[2023-10-16 07:59] LABS: Glucose - Point of Care 239 mg/dl (70-99)
--- NOTE | 2023-10-16 08:25 | W.PN.HOSP.TC ---
Today's Communication/Plan
-
Discharge today
Assessment / Plan
Assessment / Plan
Physical Exam
General: No Apparent Distress
HEENT: Other (legally blind)
Respiratory: Other (improved air movement ); Negative Wheezes
Cardiac: Regular Rhythm and S1/S2
GI: Soft and Nontender
Musculoskeletal: No Edema
Skin: Warm and Dry; Negative Rash
Neuro: AO x 3
Psych: Calm

Assessment/Plan
Mr. Oren Velazquez is a 63-year-old man with history of COPD, on 4 L of oxygen, history of schizophrenia, resident at a [facility], recent admission 09/26-10/01 for aspiration PNA and COPD exacerbation presents to the ER with wheezing and
increased oxygen needs.
CXR
with improved RLL PNA, chronic COPD
Patient will be admitted for acute on chronic hypoxic respiratory failure in setting of COPD exacerbation
-continue duonebs
-procal negative, covid negative
-does not have increased sputum production, hold off on abx
-continue with improvement today but remains on 4 to 4L
-Discontinued IV steroids and started oral prednisone today
-PT consult
Chronic Hypoxic/Hypercarbic Respiratory Failure
COPD
-Continue supplemental oxygen via nasal cannula, 2L at baseline, now requiring slightly more
Essential Hypertension
-Continue atenolol and lisinopril
Hyperlipidemia
-Continue atorvastatin
Diabetes Mellitus, Type II
Hyperglycemia
-Continue increased dose of metformin, and sitagliptin
-Continue Lantus and Premeal Insulin
-Monitor sugars and continue coverage insulin
-Consulted Diabetes HEAD KNITTING MACHINE FIXER, recommendations appreciated
-As steroids are tapered, his Insulin requirements may decrease
Hypothyroidism
-Continue levothyroxine
Epilepsy
-Continue Depakote
Schizophrenia
-Continue hydroxyzine, iloperidone, olanzapine
Dysphagia
-Continue IDDSI 6 (Soft and Bite Sized)
GERD
-Continue Protonix
DVT proph: Lovenox
Code Status: Full Code
More than 30 minutes spent in discharge including
Final examination of the patient
Summarizing hospital stay
Instructions for continuing care to all relevant caregivers
Preparation of discharge records, prescriptions, and referral forms
Total time spent (in minutes): 40
Anticipated Discharge: Today
Subjective/Interval History
-
Date of Service: October 16, 2023
Patient was seen and examined. He reported feeling much better, denied any worsening of shortness of breath or any chest pain.
Objective Data
-
Vital Signs:
Vital Signs
Temp Pulse Resp BP Pulse Ox
97.4 F 65 18 117/54 96
10/16/23 07:49 10/16/23 07:49 10/16/23 07:49 10/16/23 07:49 10/16/23 07:49
I&O
10/15/23 10/16/23 10/17/23
06:59 06:59 06:59
Intake Total 1200 / 1200 1680 / 1680
Output Total 1450 / 1450 1150 / 1150
Balance -250 / -250 530 / 530
--- NOTE | 2023-10-16 08:33 | PN.DE.MGMTRT ---
Insulin Management
- -
10/16/2023: Diabetes management Consult
63 year old male admitted from [facility] where he resides, for SOB due to COPD exacerbation, treated with IV steroids with subsequent Hyperglycemia.
PMH: Schizophrenia, HTN, hypothyroid, COPD, GERD. Prior to admission his diabetes regimen included Lantus 10 units, Januvia 100 mg daily and Metformin 500 mg BID with sliding scale Novolin R. Recent A1C 7.4% on 09/27, Cr 0.5, eGFR >60. Pt is unable
to provide specific details regrading diabetes mgt, information obtained from Crystal at [facility] via phone
Patient is awake, alert and oriented to self with some confusion, sitting up on bed, unable to discuss diabetes mgt.
He remains on steroids, glucose has trended up to 300's
Premeal Glucose 253 to 371 with 2 days consecutive fasting glucose of 224 to 247.
Will start AC NovoLog 5 units and resume OP regimen, give Lantus 10 units x1 NOW and daily thereafter.
Will increase Metformin to 1000mg BID, pt already received 500mg this AM, will give an additional 500mg X1
Change diet to 1800 jack
Will closely monitor and make necessary adjustments .
Diabetes plan of care discussed with Nurse and Pt's primary Nurse at [facility]
Diabetes History
- -
Type of Diabetes: 2
Pre-Admission Diabetes Regimen
10/15/23
06:38
Creatinine 0.5 L
Insulin Pump Settings
IP Diabetes Regimen
10/15/23 10/15/23 10/15/23
06:38 11:29 16:55
Glucose 224 H
POC Glucose 253 H 371 H
10/15/23 10/16/23
21:12 07:58
Glucose
POC Glucose 323 H 239 H
Meal type: Dinner
Meal type: Lunch
Amount consumed: 100%
Amount consumed: 100%
Patient Education
[2023-10-16] MEDS: DECADRON IV (09:23)
[2023-10-16] MEDS: GLUCOPHAGE PO (09:24)
[2023-10-16] MEDS: VITAMIN B-12 500 MCG PO (09:37)
[2023-10-16] MEDS: TENORMIN 25 MG PO (09:37)
[2023-10-16] MEDS: GLUCOPHAGE 500 MG PO ×2 (09:37)
[2023-10-16] MEDS: JANUVIA 100 MG PO (09:38)
[2023-10-16] MEDS: LIPITOR 20 MG PO (09:38)
[2023-10-16] MEDS: PROTONIX 40 MG PO (09:38)
[2023-10-16] MEDS: NOVOLOG FLEXPEN-LOW RESISTANCE 2 UNITS SC (09:38)
[2023-10-16] MEDS: CLARITIN 10 MG PO (09:38)
[2023-10-16] MEDS: DEPAKOTE (12 HR RELEASE) 250 MG PO (09:38)
[2023-10-16] MEDS: COSOPT EYE DROPS 1 DROP BOTH EYES (09:39)
[2023-10-16] MEDS: ZESTRIL 2.5 MG PO (09:39)
[2023-10-16] MEDS: DEPAKOTE (12 HR RELEASE) 1000 MG PO (09:39)
[2023-10-16] MEDS: LANTUS 0.1 UNITS SC (09:40)
[2023-10-16 09:47] VITALS: BP 129/60; BP 138/59; PULSE 62; O2SAT 100
[2023-10-16] MEDS: DELTASONE 40 MG PO (09:48)
[2023-10-16 12:09] LABS: Glucose - Point of Care 256 mg/dl (70-99)
--- NOTE | 2023-10-16 12:56 | CM ---
Addendum entered by Nelly Grande 10/16/23 14:46:
Per Rubi, if [facility] is unable to deliver medications they send the rx to a local pharmacy to [facility] [place].
Per Rubi she spoke with the critical care educator re medication changes.
Spoke with Brittney from [facility], they do escript. phone and fax verified.
Addendum entered by Nelly Grande 10/16/23 14:13:
clinicals faxed and confirmation received.
Left VM on nurses line for Rubi re 4:30 transport time and left 4W nurses station number if they wanted to call for report.
Original Note:
TC from Rubi from [facility]- phone# [phone]
Clinicals faxed to [phone]
OT requesting home health, TT to for script.
(Rubi was unsure who they used)
Pharmacy verified with [facility] located in [place].
p#[phone]
F#[phone]
Plan: [facility] today via ambulance transport.
[facility]
Report# Rubi [phone]
[2023-10-16] MEDS: NOVOLOG FLEXPEN-LOW RESISTANCE 3 UNITS SC (13:05)
[2023-10-16] MEDS: NOVOLOG FLEXPEN 5 UNITS SC (13:06)
[2023-10-16 14:25] VITALS: BP 111/58
--- NOTE | 2023-10-16 15:02 | W.DS.TRANS ---
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
-
Discharge Instructions:
Discharge Diagnosis/Procedures Acute on chronic hypoxic respiratory failure in
setting of COPD exacerbation
Chronic Hypoxic/Hypercarbic Respiratory Failure
COPD
Essential Hypertension
Hyperlipidemia
Diabetes Mellitus, Type II
Hyperglycemia
Hypothyroidism
Epilepsy
Schizophrenia
Dysphagia
GERD
Diet Diabetic, Carb Controlled,Other diet
Additional Diets IDDSI Level 6 (Soft-Bite Sized) and IDDSI Level
0 (Thin Liquids)
Activity With assistance
Driving Restrictions No driving
Other Services PT,OT
Instructions:
Stand-Alone Forms:
Changes to Home Medications: Yes
Discharge Medications:
DC Medications w/original date entered in [employer]
fexofenadine 180 mg tablet 180 mg PO DAILY Allergies 07/08/19
levothyroxine 200 mcg tablet 200 mcg PO DAILY@0600 Thyroid 07/08/19
acetaminophen 325 mg tablet (Tylenol) 650 mg PO Q4HPRN PRN mild pain 04/24/23
atorvastatin 20 mg tablet 20 mg PO DAILY High Cholesterol 04/24/23
polyethylene glycol 3350 17 gram oral powder packet (Miralax) 17 g PO DAILYPRN PRN constipation 04/25/23
cyanocobalamin (vitamin B-12) 500 mcg tablet 500 mcg PO DAILY Supplement 06/17/23
divalproex 250 mg tablet,delayed release 250 mg PO BID@08 mental health 06/17/23
divalproex 500 mg tablet,delayed release 1,000 mg PO BID@0800,1999 mental health 06/17/23
albuterol sulfate 90 mcg/actuation aerosol inhaler 2 puff inhalation R Q4HPRN PRN copd 09/13/23
ipratropium 0.5 mg-albuterol 3 mg (2.5 mg base)/3 mL nebulization soln 3 ml inhalation R Q4HPRN PRN sob 09/27/23
atenolol 25 mg tablet 25 mg PO DAILY Blood Pressure 10/14/23
dorzolamide 22.3 mg-timolol 6.8 mg/mL eye drops 1 drp ophthalmic (eye) BID Eye Condition 10/14/23
fluticasone fur. 100 mcg-umeclid 62.5 mcg-vilant 25 mcg inhalat.powder (Trelegy Ellipta) 1 inh inhalation DAILY Lung/Breathing Issues 10/14/23
hydroxyzine pamoate 50 mg capsule 50 mg PO DAILY@1999 Mental Health 10/14/23
iloperidone 12 mg tablet 12 mg PO DAILY@1999 [facility] 10/14/23
insulin glulisine U-100 100 unit/mL subcutaneous pen (Apidra SoloStar U-100 Insulin) 1 sliding scale dose SC DIRECTED Diabetes 10/14/23
lisinopril 2.5 mg tablet 2.5 mg PO DAILY Blood Pressure 10/14/23
olanzapine 20 mg tablet 20 mg PO DAILY@1999 [facility] 10/14/23
sitagliptin phosphate 100 mg tablet (Januvia) 100 mg PO DAILY Diabetes 10/14/23
blood sugar diagnostic (Accu-Chek Guide test strips) #200 ea 10/16/23
blood-glucose meter (Accu-Chek Guide Glucose Meter) #1 ea 10/16/23
insulin aspart U-100 100 unit/mL (3 mL) subcutaneous pen (Novolog FlexPen U-100 Insulin aspart) 5 unit (0.05 mL) SC AC #5 ea 10/16/23
insulin glargine 100 unit/mL (3 mL) subcutaneous pen (Basaglar KwikPen U-100 Insulin) 10 unit (0.1 mL) SC DAILY #5 ea 10/16/23
lancets (Accu-Chek Softclix Lancets) #200 ea 10/16/23
metformin 500 mg tablet 1,000 mg (2 x 500 mg) PO BID@ Diabetes #0 tabs 10/16/23
pantoprazole 40 mg tablet,delayed release 40 mg PO DAILY #14 tabs 10/16/23
pen needle, diabetic 32 gauge x 32' (BD Ultra-Fine Esha Pen Needle) #200 ea 10/16/23
prednisone 10 mg tablet 10 mg PO DIRECTED #26 tabs 10/16/23
Home Medication Changes
Insulin Lantus 10 units daily and Premeal (AC) Novolog Insulin 5 units AC, as well as Pantoprazole and Prednisone Taper are all new
Metformin increased to 1000 mg BID
Pending Results: No
Total time spent discharging patient (in min): 40
== END 2023-10-16 16:44 | DRG 189 ==
LOC: 4 WEST ACU 13:20
PROVIDERS: Physician Assistant Medical; ADMITTING PHYSICIAN Student in an Organized Health Care Education/Training Program; ATTENDING PHYSICIAN Hospitalist; EMERGENCY PHYSICIAN Student in an Organized Health Care Education/Training Program
DX: J96.21 Acute and chronic respiratory failure with hypoxia (principal); J44.1 Chronic obstructive pulmonary disease with (acute) exacerbation; J45.901 Unspecified asthma with (acute) exacerbation; Z11.52 Encounter for screening for COVID-19; I10 Essential (primary) hypertension; G40.909 Epilepsy, unspecified, not intractable, without status epilepticus; F20.9 Schizophrenia, unspecified; E11.8 Type 2 diabetes mellitus with unspecified complications; E78.5 Hyperlipidemia, unspecified; E03.9 Hypothyroidism, unspecified; K21.9 Gastro-esophageal reflux disease without esophagitis
CPT/HCPCS: 71046; 80048; 82962; 83735; 83880; 84145; 85025; 85027; 87070; 87811; 94640; 96374; 97162; 97166; 99285

== ENCOUNTER 2023-11-08 12:24 | Emergency (ER) | payer MEDICARE, SELFPAY ==
[2023-11-08] VITALS (10 sets, daily range): BP systolic 116–135; BP diastolic 70–87
--- NOTE | 2023-11-08 13:02 | ED.GENMED ---
History of Present Illness
General
Chief Complaint: Breathing Problem
Source: patient and records
Exam Limitations: clinical condition
Time Seen by Provider: 11/08/23 12:36
History of Present Illness
History of Present Illness:
63-year-old male presents with hypoxia and shortness of breath. Time course slightly uncertain but appears to have been today. Feels generally achy. No chest pain. Chronic cough is unchanged. No sputum. No pleuritic pain. No back pain. No
nausea or vomiting. Patient was noted to be hypoxic in the 40s at the facility. Medics got a pulse ox of '% on room air '. Unsure about this since he is supposed to be on chronic oxygen therapy. Patient denies other complaints
Past History
Past History
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 Limited vision on left eye. )
ED Past Surgical History: None
Social History
Tobacco: Former smoker
Alcohol: None
Drug: None
Personal: Single
Living: long term
Employment: Disabled
Family History
Family History: Other (Reviewed and noncontributory)
Review of Systems
Review of Systems
All Other Systems: Not applicable
Constitutional: Denies fever
Cardiac: Denies chest pain or syncope
Phy Exam
Physical Exam
Physical Exam:
GENERAL: Alert and oriented in no apparent distress
EYE: Orbits normal.
NECK: Supple, no significant adenopathy.
ENT: Pharynx without erythema
CARDIAC: Regular rate and rhythm without any obvious murmurs.
LUNGS: Chronic oxygen therapy. No respiratory distress. Breath sounds equal bilaterally. Some mild dry rales and expiratory rhonchi in the bases
ABDOMEN: Soft, without focal tenderness or distention
NEUROLOGICAL: Alert and oriented , grossly non-focal. Mild MR
SKIN: Warm and dry, no rash or lesion, no discoloration, skin intact.
MUSCULOSKELETAL: No edema,no deformity.Good color. Noninflamed bilateral superficial varicosities
PSYCH: Normal and appropriate interaction.
Scores
Heart Failure Risk
Heart Failure Risk Score: Not Applicable
Course
Orders/Labs/Results
Orders:
Orders
11/08/23 12:33
Electrocardiogram (*1) Urgent
Reason for Study: Shortness of Breath
EKG- Treatment ONCE
11/08/23 12:36
Basic Metabolic Panel Urgent
COVID-19 Antigen Urgent
Source: Nasal Swab
Complete Blood Count/With Diff Urgent
11/08/23 12:56
Albuterol Sulfate [Ventolin Nebules] 7.5 mg INH R NOW STA
Dexamethasone Sod Phosphate [Decadron] 4 mg IV NOW STA
Ipratropium/Albuterol Sulfate [Duoneb] 3 ml INH R NOW STA
11/08/23 12:58
CXR2 [CR Chest - 2 Views ] Urgent
Comment:
Reason For Exam: sob
11/08/23 15:01
Comprehensive Metabolic Panel Urgent
11/08/23 15:13
EKG [Electrocardiogram (*1)] Urgent
Reason for Study: Tachycardia
EKG- Treatment ONCE
Abnormal Lab Results
11/08/23 11/08/23
12:36 15:01
RBC 3.40 L 10^6/uL
(4.70-6.10)
Hgb 10.9 L g/dL
(13.0-18.0)
Hct 33.3 L %
(39.0-52.0)
MCV 97.9 H fL
(80.0-94.0)
MCH 32.1 H pg
(27.0-31.0)
MCHC 32.7 L g/dL
(33.0-37.0)
MPV 11.4 H fL
(7.4-10.4)
Absolute Lymphs (auto) 0.9 L 10^3/uL
(1.2-3.4)
Absolute Monos (auto) 0.9 H 10^3/uL
(0.1-0.6)
Immature Gran % 0.8 H %
(0-0.5)
Lymphocytes % 17.6 L %
(20.5-51.1)
Monocytes % 17.6 H %
(1.7-9.3)
Chloride 95 L mmol/L 95 L mmol/L
(98-107) (98-107)
Carbon Dioxide 37 H mmol/L 40 H mmol/L
(22-30) (22-30)
Creatinine 0.5 L mg/dL 0.5 L mg/dL
(0.7-1.3) (0.7-1.3)
Glucose 103 H mg/dl
(70-99)
AST 16 L U/L
(17-59)
Total Protein 5.7 L g/dl
(6.3-8.2)
Albumin 3.4 L g/dl
(3.5-5.0)
11/08/23 12:36
11/08/23 15:01
Vital Signs
Initial and Last Documented VS:
Initial Vital Signs
Temp Pulse Resp BP Pulse Ox
98.9 F 86 26 124/70 81
11/08/23 12:30 11/08/23 12:30 11/08/23 12:30 11/08/23 12:30 11/08/23 12:30
Last Documented Vital Signs
Temp Pulse Resp BP Pulse Ox
98.9 F 80 17 131/77 94
11/08/23 12:30 11/08/23 15:00 11/08/23 15:00 11/08/23 15:00 11/08/23 15:00
*Radiology
Radiology exam reviewed: preliminary read by ED provider (No acute findings) and radiology read reviewed (No acute findings)
*Pulse Oximetry
Patient hypoxic: no
*EKG
Interpreted by ED Provider?: Yes
Interpretation: abnormal
Comparison EKG: no changes
Heart Rate: 74
Rate: normal
Rhythm: sinus
[place]: normal axis
QRS Pattern: poor R-wave progression
Ischemia: non-specific ST changes
*Furnace Tapper Interpretation
Rate: normal
Interpretation: normal
Heart Rate: 77
Rhythm: sinus
*Critical Care Note
Total Time (30-74mins, 75-104mins- exclusive of procedures): Not Applicable
Data Reviewed
Review of Other/Old Records Reveals: Labs, Records, Radiology Studies, Testing and Discharge Summary
Comment
Comment:
Patient was some apparent increased shortness of breath time course somewhat unknown. He is not a great historian. Peers in no distress at this time. Pulse ox 94% on his baseline 4 L. Mild rhonchi and expiratory wheeze at the bases. Highly
doubt primary cardiac issue. Highly doubt pulmonary emboli. Likely exacerbation of his COPD. Workup in progress
Update Note
Update Note:
1600... Patient has remained medically stable. Pulse ox 95% on his 4 L. No respiratory distress. Feels better except for generally feeling achy. At this time given the relative brief transient respiratory issues do not feel he needs prolonged
steroids. Will continue his current medications discharged to follow-up
ED Attending Note
-
Portions of this chart may have been created with voice recognition software.� Occasional wrong word or��sound alike� substitutions may have occurred due to the inherent limitations of voice recognition software.
Discharge Plan
Departure
Patient Disposition: Home (Routine Discharge)
Date of Disposition: 11/08/23
Time of Disposition: 16:07
Patient with high blood pressure during this ER visit?: Yes
Discharge Problem:
Transient dyspnea, History of COPD
Instructions: Shortness of Breath (Dyspnea) (DC), Exacerbation of COPD (DC), BLOOD PRESSURE
Prescriptions:
No Action
fexofenadine 180 MG tablet
180 mg PO DAILY
levothyroxine 200 MCG tablet
200 mcg PO DAILY@0600
acetaminophen [Tylenol] 325 mg Tablet
650 mg PO Q4HPRN PRN (Reason: mild pain)
atorvastatin 20 mg tablet
20 mg PO DAILY
polyethylene glycol 3350 [Miralax] 17 gram Powder In Packet
17 g PO DAILYPRN PRN (Reason: constipation)
divalproex 250 mg Tablet,Delayed Release (Dr/Ec)
250 mg PO BID@799,1999
Patient Comments:
09/13/2023: taken w/ 1000mg = 1250mg
divalproex 500 mg Tablet,Delayed Release (Dr/Ec)
1,000 mg PO BID@
Patient Comments:
09/13/2023: taken w/ 250mg = 1250mg
cyanocobalamin (vitamin B-12) 500 mcg Tablet
500 mcg PO DAILY
albuterol sulfate 90 mcg/actuation Hfa Aerosol Inhaler
2 puff INHALATION R Q4HPRN PRN (Reason: copd)
ipratropium-albuterol 0.5 mg-3 mg(2.5 mg base)/3 mL Solution For Nebulization
3 ml INHALATION R Q4HPRN PRN (Reason: sob)
atenolol 25 mg Tablet
25 mg PO DAILY
hydroxyzine pamoate 50 mg Capsule
50 mg PO DAILY@1999
dorzolamide-timolol 22.3-6.8 mg/mL Drops
1 drp OPHTHALMIC (EYE) BID
lisinopril 2.5 mg Tablet
2.5 mg PO DAILY
olanzapine 20 mg Tablet
20 mg PO DAILY@1999
Januvia 100 mg Tablet
100 mg PO DAILY
Apidra SoloStar U-100 Insulin 100 unit/mL Insulin Pen
1 sliding scale dose SC DIRECTED
iloperidone 12 mg Tablet
12 mg PO DAILY@1999
Treleroel Ellipta 100-62.5-25 mcg Blister With Device
1 inh INHALATION DAILY
prednisone 10 mg tablet
10 mg PO DIRECTED Qty: 26 0RF
Rx Instructions:
Start on 10/17/23: 40 mg/day x2 days; 30 mg/day x3 days; 20 mg/day x3 days; 10 mg/day x3 days
pantoprazole 40 mg Tablet,Delayed Release (Dr/Ec)
40 mg PO DAILY Qty: 14 0RF
metformin 500 mg tablet
1,000 mg PO BID@799,1999 Qty: 0 0RF
(DME) Accu-Chek Guide test strips Strip
Qty: 200 0RF
Rx Instructions:
As Directed
(DME) lancets [Accu-Chek Softclix Lancets] Misc
Qty: 200 0RF
Rx Instructions:
As Directed
insulin aspart U-100 [Novolog FlexPen U-100 Insulin] 100 unit/mL (3 mL) Insulin Pen
5 unit SC AC Qty: 5 0RF
insulin glargine [Basaglar KwikPen U-100 Insulin] 100 unit/mL (3 mL) Insulin Pen
10 unit SC DAILY Qty: 5 0RF
(DME) pen needle, diabetic [BD Ultra-Fine Esha Pen Needle] 32 gauge x ' Needle
Qty: 200 0RF
Rx Instructions:
As Directed
(DME) blood-glucose meter [Accu-Chek Guide Glucose Meter] Misc
Qty: 1 0RF
Rx Instructions:
As Directed
Referrals:
UNKNOWN - PT DOES,NOT KNOW [Family Provider] -
Activity Restrictions/Additional Instructions:
Follow-up closely with your primary physician
Return with fever increased shortness of breath or any other concerning symptoms
Interventions
Interventions:
*Risk Screen - Suicide Last Done: 11/08/23 12:37
*General Assessment Last Done: 11/08/23 12:37
*Neglect/Abuse Screening Last Done: 11/08/23 12:37
*ED COVID-19 Vaccine History Last Done: 11/08/23 12:37
ED- Cardiac Assessment Last Done: 11/08/23 12:31
ED- Pulmonary Assessment Last Done: 11/08/23 12:31
Discharge Date and Time
Print Language: LATVIAN
[2023-11-08 13:04] LABS: % Basophils 0.4 % (0-2); % Eosinophils 1.3 % (0-6); % Immature Granulocytes 0.8 % (0-0.5); % Lymphocytes 17.6 % (20.5-51.1); % Monocytes 17.6 % (1.7-9.3); % Neutrophils 62.3 % (42.2-75.2); Absolute Eosinophils 0.1 10^3/uL (0-0.7); Absolute Lymphocytes 0.9 10^3/uL (1.2-3.4); Absolute Monocytes 0.9 10^3/uL (0.1-0.6); Absolute Neutrophils 3.3 10^3/uL (1.4-6.5); Hematocrit 33.3 % (39.0-52.0); Hemoglobin 10.9 g/dL (13.0-18.0); Mean Corp Hgb Conc. 32.7 g/dL (33.0-37.0); Mean Corpuscular Hgb 32.1 pg (27.0-31.0); Mean Corpuscular Volume 97.9 fL (80.0-94.0); Mean Platelet Volume 11.4 fL (7.4-10.4); Nucleated Red Blood Cells % 0 % (-); Platelet Count 131 10^3/uL (130-400); Red Cell Dist. Width 14.3 % (11.5-14.5); White Blood Cell Count 5.3 10^3/uL (4.8-10.8)
[2023-11-08 13:22] LABS: COVID-19 Antigen Negative (Negative)
[2023-11-08 13:29] LABS: Blood Urea Nitrogen 16 mg/dl (9-20); Carbon Dioxide 37 mmol/L (22-30); Chloride 95 mmol/L (98-107); Estimated Creatinine Clearance 124 ml/min; Glucose 103 mg/dl (70-99); Sodium 138 mmol/L (135-145); eGFR > 60.00
[2023-11-08] MEDS: VENTOLIN NEBULES 7.5 MG INH (13:44)
[2023-11-08] MEDS: DECADRON 4 MG IV (13:44)
[2023-11-08] MEDS: DUONEB 3 ML INH (13:44)
[2023-11-08 15:25] LABS: ALT (SGPT) 11 U/L (0-50); AST (SGOT) 16 U/L (17-59); Albumin 3.4 g/dl (3.5-5.0); Alkaline Phosphatase 55 U/L (38-126); Blood Urea Nitrogen 16 mg/dl (9-20); Calcium 9.1 mg/dl (8.4-10.2); Carbon Dioxide 40 mmol/L (22-30); Chloride 95 mmol/L (98-107); Estimated Creatinine Clearance 124 ml/min; Glucose 73 mg/dl (70-99); Potassium 4.5 mmol/L (3.5-5.1); Sodium 135 mmol/L (135-145); Total Bilirubin 0.4 mg/dl (0.2-1.3); Total Protein 5.7 g/dl (6.3-8.2); eGFR > 60.00
== END 2023-11-08 19:40 | disposition home or self-care (01) ==
LOC: EMR 12:24
PROVIDERS: Student in an Organized Health Care Education/Training Program; EMERGENCY PHYSICIAN Emergency Medicine
DX: J44.9 Chronic obstructive pulmonary disease, unspecified (principal); R06.00 Dyspnea, unspecified; I10 Essential (primary) hypertension; Z87.891 Personal history of nicotine dependence
CPT/HCPCS: 99285; 96374; 94640; 71046; 80048; 80053; 85025; 87811; 93005

== ENCOUNTER 2023-11-12 14:10 | Inpatient (IN) | payer MEDICARE, OTHER, SELFPAY ==
[2023-11-12] VITALS (18 sets, daily range): BP systolic 102–164; BP diastolic 55–111; PULSE 2–95; BMI 25.8; BMI 29.8; BMI 29.6
[2023-11-12 11:45] LABS: Venous Blood Gas B.E. 11.6 mmol/L (-4 to +4); Venous Blood Gas HCO3 41.4 mmol/L (22-27); Venous Blood Gas O2 Sat % 86.3 %; Venous Blood Gas pH 7.29 (7.32-7.43); Venous Blood Gas pO2 55 mmHg (30-50)
[2023-11-12 11:46] LABS: Venous Blood Gas O2 Therapy 78
[2023-11-12] MEDS: SOLU-MEDROL PF 60 MG IV (11:46)
[2023-11-12] MEDS: DUONEB 3 ML INH ×2 (11:46→20:46)
[2023-11-12 11:47] LABS: Hematocrit 35.4 % (39.0-52.0); Hemoglobin 11.4 g/dL (13.0-18.0); Mean Corp Hgb Conc. 32.2 g/dL (33.0-37.0); Mean Corpuscular Hgb 32.3 pg (27.0-31.0); Mean Corpuscular Volume 100.3 fL (80.0-94.0); Mean Platelet Volume 10.2 fL (7.4-10.4); Platelet Count 169 10^3/uL (130-400); Red Blood Cell Count 3.53 10^6/uL (4.70-6.10); Red Cell Dist. Width 14.4 % (11.5-14.5); Venous Blood Gas pCO2 86 mmHg (35-48); White Blood Cell Count 3.3 10^3/uL (4.8-10.8)
--- NOTE | 2023-11-12 11:58 | ED.GENMED ---
History of Present Illness
<Johnathan Otto PA-C - Last Filed: 11/12/23 14:26>
General
Chief Complaint: Weakness
Source: patient, records and ambulance crew
Time Seen by Provider: 11/12/23 11:27
History of Present Illness
History of Present Illness:
63-year-old male with past medical history of developmental delay, COPD, vyf-unrywug-mjrcctxvn diabetes, schizophrenia presenting to the emergency department from his intermediate for evaluation of reportedly continued shortness of breath despite
being seen here at the emergency department a few days ago. Patient's history is somewhat limited secondary to his mental status and is currently stating he feels short of breath. It was noted that patient was not on his reported baseline 4 L via
nasal cannula when EMS came to pick him up but is unclear as to why he was not as he resides at a long-term care facility. Patient is denying any pain, GI related symptoms or any other concerns.
Past History
<Josh Castaneda DO - Last Filed: >
Past History
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 Limited vision on left eye. )
ED Past Surgical History: None
Social History
Tobacco: Former smoker
Alcohol: None
Drug: None
Personal: Single
Living: intermediate
Employment: Disabled
Family History
Family History: Other (Reviewed and noncontributory)
Review of Systems
<Johnathan Otto PA-C - Last Filed: 11/12/23 14:26>
Review of Systems
All Other Systems: ROS reviewed and negative except as documented in HPI and ROS
Phy Exam
<Johnathan Otto PA-C - Last Filed: 11/12/23 14:26>
Physical Exam
Physical Exam:
GENERAL: Alert , in no apparent distress
EYE: Clear conjunctiva
NECK: Supple
ENT: mmm.
CARDIAC: Borderline tachycardic rate and rhythm, no murmur
LUNGS: Diminished lung sounds throughout with scattered wheezing, tachypneic with accessory muscle use
ABDOMEN: Soft, without focal tenderness, no r/g, no cvat
NEUROLOGICAL: Alert and oriented
SKIN: Warm and dry, skin intact.
MUSCULOSKELETAL: No edema, well perfused.
PSYCH: Normal and appropriate interaction.
Scores
<Johnathan Otto PA-C - Last Filed: 11/12/23 14:26>
Heart Failure Risk
Heart Failure Risk Score: Not Applicable
Heart Score for Chest Pain Patients
STEMI patient?: Not applicable
Withdrawal Assessment of Alcohol
Withdrawal Assessment Completed?: Not applicable
Course
<Johnathan Otto PA-C - Last Filed: 11/12/23 14:26>
Orders/Labs/Results
Orders:
Orders
11/12/23 11:23
IV Insert/Care/Rem.- Treatment PRN
11/12/23 11:33
COVID-19 Antigen Urgent
Source: Nasal Swab
Complete Blood Count/With Diff Urgent
Comprehensive Metabolic Panel Urgent
Manual Differential Urgent
Venous Blood Gas Urgent
%Oxygen/Room Air: 78
11/12/23 11:38
EKG [Electrocardiogram (*1)] Urgent
Reason for Study: Shortness of Breath
Ipratropium/Albuterol Sulfate [Duoneb] 3 ml INH R NOW ONE
MethylPREDNISolone PF [Solu-Medrol Pf] 60 mg IV NOW STA
CR Chest Portable - 1 View Urgent
Comment:
Reason For Exam: SOB, hypoxia
Reason Study Needs to be Portable: Patient Unstable
11/12/23 11:39
EKG- Treatment ONCE
11/12/23 11:46
Troponin I Urgent
11/12/23 11:55
Bipap [RESP] Urgent
Patient to use own unit?: No
Inspiratory Pressure (cm H2O): 14
Expiratory Pressure (cm H2O): 6
11/12/23 12:35
Cefepime HCl [Maxipime] 2,000 mg IV NOW STA
Piperacillin/Tazo 4.5 Gram [Zosyn] 4.5 gram in 100 ml IV NOW
11/12/23 13:33
Admit/Transfer Patient As Directed
Co-Sign Provider:
Level of Care: Inpatient admission
Assign to:: ICU
Physician / Group: Hospitalist
Diagnosis: Respiratory failure and PNA
Reason for Hospitalization: Respiratory failure and PNA
Expected length of stay greater than two midnights?: Yes
ELOS- Estimated Length of Stay in days: 3
I certify the patient meets the requirements for IP care: Yes
PRN Pain Medication Management As Directed
May give lesser potent ordered pain med per pt: Yes
preference::
Protocol:: Medication orders for pain may be administered in a
manner that supports deferring to patient preference
when the pt is:
- Requesting an ordered lesser potent pain medication.
Least to most potent pain medications are defined
as: acetaminophen < NSAID < tramadol < opioids
(morphine, oxycodone, hydromorphone).
- Requesting a lesser dose of the same medication IF
ORDERED.
- Requesting a less intrusive route of administration
if both routes are prescribed by the provider (PO <
IV).
11/12/23 13:35
Code Status As Directed
Resuscitation Status: Full Code
Physician note:: At this time, could not have code conversation with patient due to acuity.
Abnormal Lab Results
11/12/23
11:33
WBC 3.3 L 10^3/uL
(4.8-10.8)
RBC 3.53 L 10^6/uL
(4.70-6.10)
Hgb 11.4 L g/dL
(13.0-18.0)
Hct 35.4 L %
(39.0-52.0)
MCV 100.3 H fL
(80.0-94.0)
MCH 32.3 H pg
(27.0-31.0)
MCHC 32.2 L g/dL
(33.0-37.0)
Band Neutrophils 6 H %
(0-3)
Monocytes (Manual) 17 H %
(2-9)
VBG pH 7.29 L
(7.32-7.43)
VBG pCO2 86 H* mmHg
(35-48)
VBG pO2 55 H mmHg
(30-50)
VBG HCO3 41.4 H mmol/L
(22-27)
Chloride 94 L mmol/L
(98-107)
Carbon Dioxide 39 H mmol/L
(22-30)
Creatinine 0.6 L mg/dL
(0.7-1.3)
Glucose 157 H mg/dl
(70-99)
AST 16 L U/L
(17-59)
Total Protein 5.8 L g/dl
(6.3-8.2)
Albumin 3.4 L g/dl
(3.5-5.0)
11/12/23 11:33
11/12/23 11:33
Vital Signs
Initial and Last Documented VS:
Initial Vital Signs
BP
120/69
11/12/23 11:23
Last Documented Vital Signs
Temp Pulse Resp BP Pulse Ox
99.7 F 96 24 122/63 90
11/12/23 11:24 11/12/23 14:00 11/12/23 14:00 11/12/23 14:00 11/12/23 14:00
<Josh Castaneda, - Last Filed: >
Orders/Labs/Results
Orders:
Orders
11/12/23 11:23
IV Insert/Care/Rem.- Treatment PRN
11/12/23 11:33
COVID-19 Antigen Urgent
Source: Nasal Swab
Complete Blood Count/With Diff Urgent
Comprehensive Metabolic Panel Urgent
Manual Differential Urgent
Venous Blood Gas Urgent
%Oxygen/Room Air: 78
11/12/23 11:38
EKG [Electrocardiogram (*1)] Urgent
Reason for Study: Shortness of Breath
Ipratropium/Albuterol Sulfate [Duoneb] 3 ml INH R NOW ONE
MethylPREDNISolone PF [Solu-Medrol Pf] 60 mg IV NOW STA
CR Chest Portable - 1 View Urgent
Comment:
Reason For Exam: SOB, hypoxia
Reason Study Needs to be Portable: Patient Unstable
11/12/23 11:39
EKG- Treatment ONCE
11/12/23 11:46
Troponin I Urgent
11/12/23 11:55
Bipap [RESP] Urgent
Patient to use own unit?: No
Inspiratory Pressure (cm H2O): 14
Expiratory Pressure (cm H2O): 6
11/12/23 12:35
Cefepime HCl [Maxipime] 2,000 mg IV NOW STA
Piperacillin/Tazo 4.5 Gram [Zosyn] 4.5 gram in 100 ml IV NOW
11/12/23 13:33
Admit/Transfer Patient As Directed
Co-Sign Provider:
Level of Care: Inpatient admission
Assign to:: ICU
Physician / Group: Hospitalist
Diagnosis: Respiratory failure and PNA
Reason for Hospitalization: Respiratory failure and PNA
Expected length of stay greater than two midnights?: Yes
ELOS- Estimated Length of Stay in days: 3
I certify the patient meets the requirements for IP care: Yes
PRN Pain Medication Management As Directed
May give lesser potent ordered pain med per pt: Yes
preference::
Protocol:: Medication orders for pain may be administered in a
manner that supports deferring to patient preference
when the pt is:
- Requesting an ordered lesser potent pain medication.
Least to most potent pain medications are defined
as: acetaminophen < NSAID < tramadol < opioids
(morphine, oxycodone, hydromorphone).
- Requesting a lesser dose of the same medication IF
ORDERED.
- Requesting a less intrusive route of administration
if both routes are prescribed by the provider (PO <
IV).
11/12/23 13:35
Code Status As Directed
Resuscitation Status: Full Code
Physician note:: At this time, could not have code conversation with patient due to acuity.
Abnormal Lab Results
11/12/23
11:33
WBC 3.3 L 10^3/uL
(4.8-10.8)
RBC 3.53 L 10^6/uL
(4.70-6.10)
Hgb 11.4 L g/dL
(13.0-18.0)
Hct 35.4 L %
(39.0-52.0)
MCV 100.3 H fL
(80.0-94.0)
MCH 32.3 H pg
(27.0-31.0)
MCHC 32.2 L g/dL
(33.0-37.0)
Band Neutrophils 6 H %
(0-3)
Monocytes (Manual) 17 H %
(2-9)
VBG pH 7.29 L
(7.32-7.43)
VBG pCO2 86 H* mmHg
(35-48)
VBG pO2 55 H mmHg
(30-50)
VBG HCO3 41.4 H mmol/L
(22-27)
Chloride 94 L mmol/L
(98-107)
Carbon Dioxide 39 H mmol/L
(22-30)
Creatinine 0.6 L mg/dL
(0.7-1.3)
Glucose 157 H mg/dl
(70-99)
AST 16 L U/L
(17-59)
Total Protein 5.8 L g/dl
(6.3-8.2)
Albumin 3.4 L g/dl
(3.5-5.0)
11/12/23 11:33
11/12/23 11:33
Vital Signs
Initial and Last Documented VS:
Initial Vital Signs
BP
120/69
11/12/23 11:23
Last Documented Vital Signs
Temp Pulse Resp BP Pulse Ox
99.7 F 96 24 122/63 90
11/12/23 11:24 11/12/23 14:00 11/12/23 14:00 11/12/23 14:00 11/12/23 14:00
<Johnathan Otto PA-C - Last Filed: 11/12/23 14:26>
MDM/Problems Addressed
Differential Diagnosis Includes:
COPD, asthma, pneumonia, viral syndrome, COVID, PE considered although thought to be less likely given the more chronic nature of symptoms
MDM/Problems Addressed:
63-year-old male presenting back to the emergency department after being seen here a few days ago for reported worsening shortness of breath, agitation and hypoxia. It is unclear as to why the patient was not wearing his oxygen at his long-term
care facility. On a Ventimask here patient is satting between 85 and 92%. He has accessory muscle use and is tachypneic. Based off history I am most suspicious for COPD exacerbation. Labs have been initiated upon arrival including a VBG. Stat
portable chest x-ray ordered. Will also order breathing treatments and IV steroid. Anticipate admission
Chronic conditions affecting care: COPD
Acute Exacerbation and/or Progression of Chronic Illness: COPD
<Johnathan Otto PA-C - Last Filed: 11/12/23 14:26>
*Radiology
Radiology exam reviewed: preliminary read by ED provider (Right-sided basilar infiltrate)
*Pulse Oximetry
Patient hypoxic: yes
*Deputy Probation Officer Interpretation
Rate: normal
Rhythm: sinus
*Critical Care Note
Total Time (30-74mins, 75-104mins- exclusive of procedures): 32
comment:
Critical care statement: A total of 32 minutes of critical care time was provided for this patient. This includes management of unstable vital signs, evaluation of the patient at bedside, reviewing the patient's pertinent medical records, discussion
with consultants, review of old EKGs and review of pertinent medical records. This time with separate from time utilized to perform the aforementioned documented procedures
Data Reviewed
Review of Other/Old Records Reveals: Labs, Records and Radiology Studies
<Johnathan Otto PA-C - Last Filed: 11/12/23 14:26>
Patient Management
Discussion with other providers: Hospitalist
Escalation/DeEscalation of care consider admission/obs:
Patient's VBG's shows acute hypercapnia and a mild acidosis. Given the acute findings combined with his hypoxia and shortness of breath will initiate treatment with BiPAP. Patient's chest x-ray also shows a right basilar pneumonia combined with a
low-grade fever so will cover for pneumonia with IV antibiotics. Plan for admission.
Hospitalist team is aware and accepts for continued evaluation and treatment.
ED Attending Note
<Josh Castaneda DO - Last Filed: >
-
Portions of this chart may have been created with voice recognition software.� Occasional wrong word or��sound alike� substitutions may have occurred due to the inherent limitations of voice recognition software.
Discharge Plan
Departure
Patient Disposition: Admit
Date of Disposition: 11/12/23
Time of Disposition: 12:37
Presentation/result/management discussed w/ accepting MD/DO: Hospitalist
Discharge Problem:
Pneumonia, Acute exacerbation of chronic obstructive pulmonary disease
Interventions
Interventions:
*Risk Screen - Suicide Last Done: 11/12/23 11:24
*General Assessment Last Done: 11/12/23 11:34
*Neglect/Abuse Screening Last Done: 11/12/23 11:24
ED- Fall Risk Assessment Last Done: 11/12/23 11:24
*ED COVID-19 Vaccine History Last Done: 11/12/23 11:34
ED- Cardiac Assessment Last Done: 11/12/23 11:24
ED- Neurological Assessment Last Done: 11/12/23 11:24
ED- Pulmonary Assessment Last Done: 11/12/23 11:24
[2023-11-12 11:59] LABS: ALT (SGPT) 12 U/L (0-50); AST (SGOT) 16 U/L (17-59); Albumin 3.4 g/dl (3.5-5.0); Alkaline Phosphatase 65 U/L (38-126); Blood Urea Nitrogen 16 mg/dl (9-20); Calcium 9.3 mg/dl (8.4-10.2); Carbon Dioxide 39 mmol/L (22-30); Chloride 94 mmol/L (98-107); Estimated Creatinine Clearance > 125 ml/min; Glucose 157 mg/dl (70-99); Potassium 4.6 mmol/L (3.5-5.1); Sodium 139 mmol/L (135-145); Total Bilirubin 0.4 mg/dl (0.2-1.3); Total Protein 5.8 g/dl (6.3-8.2); eGFR > 60.00
[2023-11-12 12:01] LABS: COVID-19 Antigen Negative (Negative)
[2023-11-12 12:13] LABS: Absolute Neutrophils -Man Diff 1.6 10^3/uL (1.4-6.5); Band Neutrophils 6 % (0-3); Lymphocytes 29 % (20-51); Monocytes 17 % (2-9); Myelocytes 4 % (-); Normal RBC Morphology Yes; Platelets Checked Yes; Segmented Neutrophils 44 % (42-75); Total Cells Counted 100
[2023-11-12 12:42] LABS: Troponin I < 0.012 ng/ml
--- NOTE | 2023-11-12 12:55 | HPS.HSE ---
Family Physician
-
Family Physician: INTERVIEWE UNKNOWN - PT NOT
Chief Complaint
-
SOB
History of Present Illness
63-year-old man with a relevant past medical history of:
developmental delay,
COPD,
nvq-bbcwban-ifsypiczp diabetes,
schizophrenia
Comes to the emergency department from his shelter for evaluation of continued shortness of breath. He was here at the ED a few days ago. For that visit he had increased shortness of breath time, time course unknown. His Pulse ox was 94%
while on his baseline 4 L. He had Mild rhonchi and expiratory wheeze at the bases. He became medically stable with a Pulse ox 95% on his 4 L. and had no further respiratory distress. He went back to his home.
For today, he is currently stating he feels short of breath. He was not on his reported baseline 4 L via nasal cannula when EMS came to pick him up. He is denying any pain, GI related symptoms or any other concerns. At the time of my interview,
he was comfortable on a bi-pap mask.
He was admitted to in October 2023, for that visit, his DC summary states:
'63-year-old male with past medical history of COPD, on 4 L of oxygen, history of schizophrenia, resident at a [facility], recent admission 09/26-10/01 for aspiration PNA and COPD exacerbation presented to the ER with wheezing and increased
oxygen needs. Patient was admitted for acute on chronic hypoxic respiratory failure in setting of COPD exacerbation and was started on intravenous steroids and Duonebs. Chest X-Ray showed improved right lower lobe pneumonia and chronic COPD. Procal
and COVID tests were negative. It was determined that patient does not need any antibiotics, and patient was able to be transitioned to oral steroids from intravenous steroids. Patient's symptoms improved and he was stable for discharge.'
The discharge diagnosis were:
Acute on chronic hypoxic respiratory failure in setting of COPD exacerbation
Chronic Hypoxic/Hypercarbic Respiratory Failure
COPD
Essential Hypertension
Hyperlipidemia
Diabetes Mellitus, Type II
Hyperglycemia
Hypothyroidism
Epilepsy
Schizophrenia
Dysphagia
GERD
Medical History
Past Medical History
Past Medical History: Reports Other
Additional Past Medical History:
COPD,
GERD,
essential HTN,
NIDDM,
Hypothyroidism,
Schizophrenia
COVID-21 July 2019,
BPH,
glaucoma,
past PNA,
Renal calculus,
Right eye is his good eye.
Limited vision on left eye.
Aspiration pneumonia of right lower lobe,
Dysphagia, unspecified type
Past Surgical History: Reports Other
Additional Past Surgical History:
not known
Social History
Unable to obtain full social history at this time due to: Acuity
Family History
Family History: Not pertinent
Allergies / Home Medications
Allergies reflects when Allergies were last updated in [employer].
Home Medications with original date entered in [employer]
Allergy/Medication List:
Allergies
Allergy/AdvReac Type Severity Reaction Status Date / Time
No Known Allergies Allergy Verified 10/14/23 10:33
Home Medications
fexofenadine 180 mg tablet 180 mg PO DAILY Allergies 07/08/19
levothyroxine 200 mcg tablet 200 mcg PO DAILY@0600 Thyroid 07/08/19
acetaminophen 325 mg tablet (Tylenol) 650 mg PO Q4HPRN PRN mild pain 04/24/23
atorvastatin 20 mg tablet 20 mg PO DAILY High Cholesterol 04/24/23
polyethylene glycol 3350 17 gram oral powder packet (Miralax) 17 g PO DAILYPRN PRN constipation 04/25/23
cyanocobalamin (vitamin B-12) 500 mcg tablet 500 mcg PO DAILY Supplement 06/17/23
divalproex 250 mg tablet,delayed release 250 mg PO BID@0800,1999 mental health 06/17/23
divalproex 500 mg tablet,delayed release 1,000 mg PO BID@0800,1999 mental health 06/17/23
albuterol sulfate 90 mcg/actuation aerosol inhaler 2 puff inhalation R Q4HPRN PRN copd 09/13/23
ipratropium 0.5 mg-albuterol 3 mg (2.5 mg base)/3 mL nebulization soln 3 ml inhalation R BID 09/27/23
sitagliptin phosphate 100 mg tablet (Januvia) 100 mg PO DAILY Diabetes 10/14/23
metformin 500 mg tablet 1,000 mg (2 x 500 mg) PO BID@ Diabetes #0 tabs 10/16/23
aluminum hydrox-magnesium carb 95 mg-358 mg/15 mL oral suspension (Acid Gone Antacid) 15 ml PO DAILYPRN PRN gerd 11/12/23
amlodipine 5 mg tablet (Norvasc) 5 mg PO DAILY 11/12/23
dextromethorphan-guaifenesin 10 mg-100 mg/5 mL oral liquid (Omaira-Tussin DM) 10 ml PO Q4HPRN PRN cough 11/12/23
dextromethorphan-guaifenesin 10 mg-100 mg/5 mL oral liquid (Tussin DM) 10 ml PO Q6HPRN PRN cough 11/12/23
dextromethorphan-guaifenesin 20 mg-400 mg tablet (Mucus Relief DM) 1 tab PO BIDPRN PRN couh 11/12/23
diltiazem HCl 120 mg capsule,extended release 24 hr 120 mg PO DAILY 11/12/23
insulin glargine 100 unit/mL (3 mL) subcutaneous pen (Basaglar KwikPen U-100 Insulin) 25 unit SC DAILY 11/12/23
insulin regular human 100 unit/mL (3 mL) subcutaneous pen (Novolin R FlexPen) 1 sliding scale dose SC ACHS 11/12/23
ipratropium 0.5 mg-albuterol 3 mg (2.5 mg base)/3 mL nebulization soln 3 ml inhalation R Q4HPRN PRN sob 11/12/23
olanzapine 15 mg tablet 30 mg PO HS 11/12/23
omeprazole 20 mg capsule,delayed release 20 mg PO DAILY 11/12/23
quetiapine 50 mg tablet (Seroquel) 50 mg PO HS 11/12/23
tamsulosin 0.4 mg capsule (Flomax) 0.4 mg PO QPM 11/12/23
Review of Systems
-
Unable to obtain full review of systems at this time due to: Acuity
History Source: Transfer Record
Physical Exam
Vital Signs
Vital Signs
Temp Pulse Resp BP Pulse Ox
99.7 F 87 27 164/93 92
11/12/23 11:24 11/12/23 12:30 11/12/23 12:30 11/12/23 12:01 11/12/23 12:30
Physical Exam
General: Well Developed, No Apparent Distress and Comfortable
HEENT: Nose Appears Normal and Ears Appear Normal
Respiratory: Wheezes, Rales and Rhonchi
Cardiac: S1/S2 and Regular Rhythm
GI: Soft, Non Tender and Non Distended
Musculoskeletal: No Clubbing, No Cyanosis and No Edema
Skin: Warm and Dry
Neuro: Awake and Alert
Psych: Calm
Laboratory Results
-
11/12/23 11:33
11/12/23 11:33
Laboratory Results
Total Bilirubin 0.4 mg/dl (0.2-1.3) 11/12/23 11:33
AST 16 U/L (17-59) L 11/12/23 11:33
ALT 12 U/L (0-50) 11/12/23 11:33
Alkaline Phosphatase 65 U/L (38-126) 11/12/23 11:33
Troponin I < 0.012 ng/ml 11/12/23 11:46
Data Reviewed
-
Lab Data: Labs Reviewed by me
Impression/Plan
-
IMPRESSION:
63 man with respiratory failure, PNA, COPD. Significant findings:
Patchy opacity in the right lung base may represent atelectasis or mild pneumonia.
No large pleural effusion or pneumothorax. The cardiomediastinal silhouette is stable.
Chronic degenerative changes of the spine. Mild thoracic levoscoliosis.
PLAN:
1. Respiratory failure on Bi-pap, in setting of COPD and PNA
ABX
Nebs
Steroids
ICU until no longer needing Bi-pap
2. Complex PMH with a large amount of meds. Continue usual care and home meds for:
Essential Hypertension
Hyperlipidemia
Diabetes Mellitus, Type II, NIDDM
Hyperglycemia
Hypothyroidism
Epilepsy
Schizophrenia
Dysphagia
GERD
COPD
BPH
glaucoma
Limited vision on left eye.
Code: Presumed full, unable to have discussion with him given acuity
VCD for DVTp
[2023-11-12] MEDS: ZOSYN 100 IV ×2 (12:56→19:31)
[2023-11-12] MEDS: MAXIPIME 2000 MG IV (13:33)
[2023-11-12 15:42] LABS: Glucose - Point of Care 211 mg/dl (70-99)
--- NOTE | 2023-11-12 15:53 | PTCARENOTE ---
15:07 Transfer from ED . Admitting DX : RR failure and PNA. patient on BIPAP 14/6/12L . BP via left upper arm 140/111; SR 88; RR 27; POX 98%. Patient awake and alert to himself only. SR 94; No edema pedal pulses palatable. Abdomen round BS present.
Condom cather # 25 placed. Lungs diminished. oral temp 98.7. For safety bed alarm activated , bed seater in place . Blood sugar 211; peripheral lines from ED #22 RT ac . New peripheral site RT hand # 20; HOB elevated
[2023-11-12] MEDS: FLOMAX PO (15:59)
[2023-11-12] MEDS: GLUCOPHAGE PO (15:59)
[2023-11-12] MEDS: NovoLIN R Flexpen 9 UNITS SC (16:05)
[2023-11-12 16:08] LABS: APTT 28.4 Sec (23.4-35.0)
[2023-11-12 17:31] LABS: Magnesium 1.6 mg/dl (1.6-2.3)
--- NOTE | 2023-11-12 18:34 | PTCARENOTE ---
patient in bed. Alert, oriented to himself. Restless with attempts to take BIPAP off. Bed alarm activated
[2023-11-12] MEDS: DECADRON 8 MG IV (19:31)
[2023-11-12] MEDS: DEPAKOTE (12 HR RELEASE) 1000 MG PO (19:34)
[2023-11-12] MEDS: DEPAKOTE (12 HR RELEASE) 250 MG PO (19:34)
--- NOTE | 2023-11-12 20:00 | PTCARENOTE ---
Resumed care of pt this evening. Received pt on continuous BiPap 14/6 w/ 12L O2. Pt is A&O to self. Pt has a hx of developmental delay but can make needs known and can move all 4 extremities. Pt is in NSR on tele monitor, has no edema, and weak but
palpable pedal pulses. Pt tolerating continuous Bipap settings satting at 99% pulse ox. On auscultation pt lungs sound diminished TO. Pt has a round abdomen w/ +BS. Pt assisted to bathroom by this RN to void. Pt tolerated ambulation. Skin is C/D/I.
[2023-11-12] MEDS: ZYPREXA 30 MG PO (21:20)
[2023-11-12] MEDS: SEROQUEL 50 MG PO (21:20)
[2023-11-12] MEDS: NovoLIN R Flexpen 6 UNITS SC (23:02)
[2023-11-12 23:12] LABS: Glucose - Point of Care 182 mg/dl (70-99)
[2023-11-13] VITALS (18 sets, daily range): BP systolic 111–146; BP diastolic 54–92; PULSE 2–78
[2023-11-13 00:41] LABS: INR 1.02; PT 13.2 Sec (11.4-14.6)
[2023-11-13] MEDS: ZOSYN 100 IV ×2 (01:11→06:11)
[2023-11-13] MEDS: DECADRON 8 MG IV ×2 (01:18→08:15)
--- NOTE | 2023-11-13 01:30 | PTCARENOTE ---
Pt continues to tolerate BiPap with altered settings of 14/6 w/ 6L satting at 96% pulse ox.
[2023-11-13] MEDS: SYNTHROID 200 MCG PO (06:11)
[2023-11-13 06:23] LABS: Blood Urea Nitrogen 23 mg/dl (9-20); Calcium 9.4 mg/dl (8.4-10.2); Chloride 91 mmol/L (98-107); Estimated Creatinine Clearance 116 ml/min; Glucose 174 mg/dl (70-99); Potassium 4.6 mmol/L (3.5-5.1); Sodium 138 mmol/L (135-145); eGFR > 60.00
[2023-11-13 06:33] LABS: Carbon Dioxide 44 mmol/L (22-30)
[2023-11-13 06:53] LABS: TSH 0.11 uIU/ml (0.47-4.68)
--- NOTE | 2023-11-13 07:16 | CON.INTV ---
Consultation
Consultation Request
Date/Time Consultation Requested: 11/13/23
Date/Time Consultation Performed: 11/13/23
Performing Provider: Meg
Reason for Consultation: ICU
Medical History
-
History of Present Illness:
Patient is a 63-year-old male with previous history of developmental delay, COPD, schizophrenia, diabetes presents to ER from residential for evaluation of shortness of breath. He had previously been evaluated in ER for similar complaints.
Pulse ox on arrival was 94% while on his baseline 4 L. He has mild rhonchi and expiratory wheeze at the bases. Chest x-ray demonstrating possible right perihilar pneumonia. He has a history of recurrent aspiration on prior VSE. ABG obtained
indicating acute on chronic hypercarbic respiratory failure, placed on BiPAP. For this reason he is admitted to ICU.
Past Medical History
Past Medical History: Other (see list below)
Family History
Family History: Reviewed & Not Pertinent
Allergies / Home Medications
Allergies
Allergy/AdvReac Type Severity Reaction Status Date / Time
No Known Allergies Allergy Verified 11/12/23 16:32
Home Medications
�Medication �Instructions �Recorded �Confirmed �Last Taken �Type
fexofenadine 180 mg tablet 180 mg PO DAILY Allergies 07/08/19 11/12/23 11/12/23 History
levothyroxine 200 mcg tablet 200 mcg PO DAILY@0600 Thyroid 07/08/19 11/12/23 11/12/23 History
acetaminophen 325 mg tablet 650 mg PO Q4HPRN PRN mild pain 04/24/23 11/12/23 11/09/23 History
(Tylenol)
atorvastatin 20 mg tablet 20 mg PO DAILY High Cholesterol 04/24/23 11/12/23 11/12/23 History
polyethylene glycol 3350 17 gram 17 g PO DAILYPRN PRN constipation 04/25/23 11/12/23 Unknown History
oral powder packet (Miralax)
cyanocobalamin (vitamin B-12) 500 500 mcg PO DAILY Supplement 06/17/23 11/12/23 11/12/23 History
mcg tablet
divalproex 250 mg tablet,delayed 250 mg PO BID@ mental 06/17/23 11/12/23 11/12/23 History
release health
divalproex 500 mg tablet,delayed 1,000 mg PO BID@ mental 06/17/23 11/12/23 11/12/23 History
release health
albuterol sulfate 90 mcg/actuation 2 puff inhalation R Q4HPRN PRN copd 09/13/23 11/12/23 Unknown History
aerosol inhaler
ipratropium 0.5 mg-albuterol 3 mg 3 ml inhalation R BID 09/27/23 11/12/23 11/12/23 History
(2.5 mg base)/3 mL nebulization
soln
sitagliptin phosphate 100 mg 100 mg PO DAILY Diabetes 10/14/23 11/12/23 11/12/23 History
tablet (Januvia)
metformin 500 mg tablet 1,000 mg (2 x 500 mg) PO 10/16/23 11/12/23 11/12/23 Rx
BID@ Diabetes #0 tabs
aluminum hydrox-magnesium carb 95 15 ml PO DAILYPRN PRN gerd 11/12/23 11/12/23 11/07/23 History
mg-358 mg/15 mL oral suspension
(Acid Gone Antacid)
amlodipine 5 mg tablet (Norvasc) 5 mg PO DAILY 11/12/23 11/12/23 11/12/23 History
dextromethorphan-guaifenesin 10 10 ml PO Q4HPRN PRN cough 11/12/23 11/12/23 11/10/23 History
mg-100 mg/5 mL oral liquid
(Omaira-Tussin DM)
dextromethorphan-guaifenesin 10 10 ml PO Q6HPRN PRN cough 11/12/23 11/12/23 11/10/23 History
mg-100 mg/5 mL oral liquid (Tussin
DM)
dextromethorphan-guaifenesin 20 1 tab PO BIDPRN PRN couh 11/12/23 11/12/23 11/10/23 History
mg-400 mg tablet (Mucus Relief DM)
diltiazem HCl 120 mg 120 mg PO DAILY 11/12/23 11/12/23 11/12/23 History
capsule,extended release 24 hr
insulin glargine 100 unit/mL (3 25 unit SC DAILY 11/12/23 11/12/23 11/12/23 History
mL) subcutaneous pen (Basaglar
KwikPen U-100 Insulin)
insulin regular human 100 unit/mL 1 sliding scale dose SC ACHS 11/12/23 11/12/23 11/12/23 History
(3 mL) subcutaneous pen (Novolin R
FlexPen)
ipratropium 0.5 mg-albuterol 3 mg 3 ml inhalation R Q4HPRN PRN sob 11/12/23 11/12/23 11/11/23 History
(2.5 mg base)/3 mL nebulization
soln
olanzapine 15 mg tablet 30 mg PO HS 11/12/23 11/12/23 11/11/23 History
omeprazole 20 mg capsule,delayed 20 mg PO DAILY 11/12/23 11/12/23 11/12/23 History
release
quetiapine 50 mg tablet (Seroquel) 50 mg PO HS 11/12/23 11/12/23 11/11/23 History
tamsulosin 0.4 mg capsule (Flomax) 0.4 mg PO QPM 11/12/23 11/12/23 11/11/23 History
Review of Systems
-
History Source: Patient
All other systems: Negative unless noted
Vitals / Labs / Diagnostic Testing
Vital Signs
Temp Pulse Resp BP Pulse Ox
97.8 F 71 19 111/59 96
11/13/23 03:30 11/13/23 03:30 11/13/23 03:30 11/13/23 03:00 11/13/23 03:15
Lab Data
11/13/23 05:46
Laboratory Results
11/12/23 11/13/23
15:39 00:20
PT 13.2
INR 1.02
APTT 28.4
Diagnostic Testing:
Physical Exam
-
HEENT: Normocephalic, Anicteric, Moist Mucous Membranes and Other (ocular palsy)
Cardiovascular: S1/S2 and Regular Rhythm
Respiratory: Clear and Non-Labored Respirations
GI: Soft, Non Distended and Non Tender
Neurology: Awake, Alert, Oriented, AO x 3 and No Motor Deficits
Skin: Warm, Dry and Good Color
General: Comfortable and Other (NAD)
Assessment
-
Patient is a 63-year-old male with previous history of developmental delay, COPD, schizophrenia, diabetes presents to ER from residential for evaluation of shortness of breath. He had previously been evaluated in ER for similar complaints.
Pulse ox on arrival was 94% while on his baseline 4 L. He has mild rhonchi and expiratory wheeze at the bases. Chest x-ray demonstrating possible right perihilar pneumonia. He has a history of recurrent aspiration on prior VSE. ABG obtained
indicating acute on chronic hypercarbic respiratory failure, placed on BiPAP. For this reason he is admitted to ICU.
Acute on chronic hypercapnic respiratory failure, recurrent
ABG 7.29/86/55
R perihilar infiltrate, possible PNA
Recurrent aspiration history/suspected cause
SOB
Conditions present prior to admission:
COPD on home 2 L/moderate-severe
Follows with Dr. Addison: On DuoNeb/Pulmicort nebulizer-unable to perform inhaler maneuver.
Obstructive sleep apnea/obesity hypoventilation syndrome: Intolerant to CPAP
AB.32/70/64. History of chronic hypercapnic respiratory failure
Chronic hypoxic hypercarbic RF
Recurrent suspected aspiration pneumonia
Speech evaluation 09/28/2023: Mild oropharyngeal dysphagia on video barium swallow 06/07/2023
Suspect noncompliance with diet at [place]
L basilar infiltrate on CXR and CT June 2023, adm [facility], negative PCT, received ceftriaxone and azithromycin for 2 d and atbs were d/c
Mild
GERD
Hypothyroidism
HTN
Schizophrenia
Anemia
Nephrolithiasis
BPH
Polydipsia
Sz
T2DM
Legally blind
Glaucoma
COVID
Cholecystectomy
Former Smoker
NHR
Disabled
Plan
No current signs of metabolic encephalopathy or MS changes/following commands
He has baseline cognitive impairment, stable
Denies pain at this time.
Pain/sedation: PRN
RASS goals: 0
Hemodynamically stable, not requiring pressors.
Prior ECHO reviewed, stable function
Monitor on telemetry
Oxygen needs: stable on home 2L usage
Prior history of lung disease: COPD
Has chronic CO2 retention, has refused PAP, does not use as OP
Supplemental O2 as indicated to maintain sats > 89%
CXR/CT reviewed indicating possible small R perihilar PNA vs pneumonitis
He has history of recurrent aspiration/frequent admissions
Placed on empiric abx on admission
Not wheezing, stop IV steroids
Diet advancement per team
Integrative Medicine Physician recommendations
Aspiration precautions, HOB > 30 degrees
Speech therapy eval, known to their service/prior VSE reviewed
GI prophylaxis if indicated for mechanical ventilation >48 hours, prior history of GERD, stress ulcer formation in the critically ill
Creat at baseline, no history of renal disease
Void trials
Follow urine output, critical I/Os
Replete electrolytes as needed
No signs/symptoms suspicious for infectious etiology at this time
This could be recurrent aspiration pneumonitis
Observe off antibiotics for now
Can add coverage if there is fever
Follow fever trend, WBC count
CBC stable, no signs of bleeding or coagulopathy.
DVT prophylaxis as assessed based on risk, including mechanical SCDs
Can transfuse if indicated for Hb <7, plt < 10
INR WNL
H/o hypothyroidism, can continue on home synthroid dose
H/o diabetes, can continue on home meds, SS for coverage
Transfer to floors today. Overall issue with recurrent admissions due to chronic aspiration, PNAs, noncompliance with diet, cognitive impairment/inability to understand health issues
Palliative discussions would be warranted
We will follow on floors
Diagnostic Data
Chest X-Ray: 11/12/23- Patchy opacity in the right lung base may represent atelectasis or mild pneumonia in the appropriate clinical setting. No large pleural effusion or pneumothorax. The cardiomediastinal silhouette is stable. Chronic degenerative
changes of the spine. Mild thoracic levoscoliosis.
10/14/23- Improved findings suggesting right lower lobe pneumonia. Findings suggesting COPD.
CT Scan: CHEST 09/13/23- 1. No CTA evidence for an acute pulmonary thromboembolism.
2. Small right pleural effusion.
3. Patchy airspace opacity in the inferior right lower lobe most suspicious for mild pneumonia.
4. Mildly enlarged right hilar lymph node, nonspecific but favored to be reactive.
Echo: 04/28/23- Contrast used. Hyperdynamic left ventricular systolic function. LV ejection fraction is 70-75%. Mild aortic stenosis. No prior study available for comparison.
PFT's:
Reports and relevant images were personally reviewed.
-----
Critical Care time 55 mins -- The patient is admitted for acute critical illness for the treatment of vital organ failure and/or prevention of further life-threatening conditions. Total care includes time spent in review of history, physical exam,
medications, hemodynamic/ventilator parameters, laboratory data, imaging and discussion with house staff, pharmacy, respiratory therapy, geomorphologist, and nursing.
[2023-11-13] MEDS: DUONEB 3 ML INH ×2 (07:21→19:28)
[2023-11-13 07:35] LABS: Hematocrit 36.1 % (39.0-52.0); Hemoglobin 11.7 g/dL (13.0-18.0); Mean Corp Hgb Conc. 32.4 g/dL (33.0-37.0); Mean Corpuscular Hgb 32.5 pg (27.0-31.0); Mean Corpuscular Volume 100.3 fL (80.0-94.0); Mean Platelet Volume 10.4 fL (7.4-10.4); Platelet Count 189 10^3/uL (130-400); Red Cell Dist. Width 13.8 % (11.5-14.5); White Blood Cell Count 2.3 10^3/uL (4.8-10.8)
[2023-11-13] MEDS: NovoLIN R Flexpen 9 UNITS SC (08:12)
[2023-11-13] MEDS: CARDIZEM CD 120 MG PO (08:13)
[2023-11-13] MEDS: DEPAKOTE (12 HR RELEASE) 1000 MG PO ×2 (08:13→21:10)
[2023-11-13] MEDS: JANUVIA 100 MG PO (08:13)
[2023-11-13] MEDS: CLARITIN 10 MG PO (08:13)
[2023-11-13] MEDS: PROTONIX 40 MG PO (08:14)
[2023-11-13] MEDS: VITAMIN B-12 500 MCG PO (08:14)
[2023-11-13] MEDS: GLUCOPHAGE 1000 MG PO ×2 (08:15→16:16)
[2023-11-13] MEDS: DEPAKOTE (12 HR RELEASE) 250 MG PO ×2 (08:15→21:10)
[2023-11-13] MEDS: LIPITOR 20 MG PO (08:15)
[2023-11-13] MEDS: NORVASC 5 MG PO (08:15)
[2023-11-13] MEDS: LANTUS 0.25 UNITS SC (08:18)
[2023-11-13 08:22] LABS: Glucose - Point of Care 201 mg/dl (70-99)
--- NOTE | 2023-11-13 11:25 | W.PN.HOSP.TC ---
Today's Communication/Plan
-
off Abx, steroids, monitor O2
therapy evals
downgrade per ICU service
Assessment / Plan
Assessment / Plan
Assessment:
Acute on chronic hypoxic/hypercarbic RF
Underlying hx of COPD
- required BiPAP overnight, now on to 6L NC (baseline 4L NC)
- suspected aspiration event (chronic aspiration), no suggestion of acute COPD or PNA after review with ICU/Pulm; Abx and steroids discontinued
- speech therapy eval
- prn nebs
Essential Hypertension
- continue Diltiazem and lisinopril
Hyperlipidemia
- continue atorvastatin
Diabetes Mellitus, Type II
Hyperglycemia
- continue Januvia/Metformin
- continue Lantus/Regular insulin
Hypothyroidism
- continue levothyroxine
Epilepsy
- continue Depakote
Schizophrenia
- continue hydroxyzine, iloperidone, olanzapine
Dysphagia
- continue IDDSI 6 (Soft and Bite Sized)
- ST eval
GERD
- continue Protonix
Hx of developmental delay
DVT ppx: Lovenox
Code Status: Full
Dispo: downgrade to IMU or floors per ICU attending.
Anticipated Discharge: 24 - 48 hours
Subjective/Interval History
-
Date of Service: November 13, 2023
denies any current complaints
on 6L (baseline 4L)
no fevers
Objective Data
-
Labs:
Laboratory Results
11/13/23 11/13/23
00:20 05:46
WBC 2.3 L*
Hgb 11.7 L
Hct 36.1 L
Plt Count 189
PT 13.2
INR 1.02
Sodium 138
Potassium 4.6
Chloride 91 L
Carbon Dioxide 44 H
BUN 23 H
Creatinine 0.6 L
Glucose 174 H
Calcium 9.4
Vital Signs:
Vital Signs
Temp Pulse Resp BP Pulse Ox
98.5 F 77 18 120/78 90
11/13/23 10:35 11/13/23 08:13 11/13/23 07:24 11/13/23 08:13 11/13/23 10:30
I&O
11/12/23 11/13/23 11/14/23
06:59 06:59 06:59
Output Total 500 / 500
Balance -500 / -500
Physical Exam
-
General: No Apparent Distress and Appears Chronically Ill
HEENT: Normocephalic and Atraumatic
Respiratory: Rhonchi; Negative Wheezes
Cardiac: Regular Rhythm and S1/S2
GI: Soft
Genito-urinary: No Costovertebral Tender
Neuro: AO x 3
Psych: Calm
Data Reviewed
-
Total Time Spent with Patient (in minutes): 44
Labs: Labs Reviewed by me
--- NOTE | 2023-11-13 12:44 | CM ---
Addendum entered by Sandeep Rios 11/13/23 16:08:
PT and OT evaluations noted - home PT/OT recommended. CM discussed it with MICHAEL Venegas and she preferred [facility].
A referral to [facility] made.
D/C plan: return back to [facility] with [facility] and [facility] staff support.
Original Note:
CM following re: discharge planning.
Discussed in rounds, reviewed pt's chart, met with pt and spoke to [facility] MICHAEL Venegas. Per Rounds meeting, pt requires 5 L NC of O2 and uses Bi-pap at night.
Pt is a 63 year old male, admitted with primary dx of Acute on chronic hypoxic/hypercarbic RF and PMH of intellectual disability, schizophrenia
Patient lives at [facility] [phone], 2 story home and bed and bath is on the 1st floor.
Per MICHAEL Venegas, pt is on chronic oxygen 4L NC at baseline, does not use assistive devices and does not get PT/OT. Per MICHAEL Venegas, pt will be accepted back when medically stable.
PCP: Dr Edwards
Pharmacy: [facility].
p#[phone]
F#[phone]
[facility]
Report# Rubi [phone]

Plan: return back to [facility] when medically stable. Pt will need an ambulance transport to get home
CM will follow with discharge plan updates as hospitalization progresses
[2023-11-13 13:16] LABS: Free T4 1.46 ng/dl (0.78-2.19)
[2023-11-13] MEDS: NovoLIN R Flexpen 12 UNITS SC ×2 (14:53→16:18)
[2023-11-13 15:03] LABS: Glucose - Point of Care 308 mg/dl (70-99)
--- NOTE | 2023-11-13 15:40 | PTOTSP ---
Dysphagia Evaluation
Patient w/ history of mild oral/pharyngeal dysphagia on 2 prior video swallow studies (06/07/2023, 09/28/2023) with deep laryngeal penetration of thin liquids without visualized aspiration events (please see studies for details). Patient has risk
factors for dysphagia and episodic aspiration (i.e., developmental delay, schizophrenia, COPD, GERD) and has had recurrent admissions with concern for possible aspiration pneumonitis and/or PNA. This has happened while on thin liquids and while on
mildly thick liquids.
Thickened liquids are at a greater risk to cause injury to lungs than thin liquids. Given this, consider continuation of thin liquids with strategies below to reduce risks for aspiration and aspiration complications. Could consider repeat video
swallow study - though suspect there may not be a significant difference from last September 2023. Discussed with physician and proj mgr.
Recommend:
1. IDDSI Level 6 (Soft/Bite Sized), IDDSI Level 0 (Thin Liquids) via SINGLE CUP SIPS
2. Medications - in puree
3. Strategies: FULL supervision and assist to use strategies, small single sips/bites, slow rate, reflux precautions
4. Oral care 3x daily and ideally before/after oral PO - to reduce risk for complications if aspiration were to occur
5. Consider GI consult if signs of esophageal dysphagia persist (i.e., burping and throat clearing as trials progress)
6. Dysphagia therapy follow up at the acute care level for patient/caregiver instruction and further assessment as appropriate.
[2023-11-13 16:29] LABS: Glucose - Point of Care 277 mg/dl (70-99)
--- NOTE | 2023-11-13 16:41 | PTCARENOTE ---
Report given to [address] [facility] RN. Pt transferred with all belongings.
[2023-11-13] MEDS: FLOMAX 0.4 MG PO (17:30)
[2023-11-13] MEDS: ZYPREXA 30 MG PO (21:10)
[2023-11-13] MEDS: SEROQUEL 50 MG PO (21:10)
[2023-11-13] MEDS: NovoLIN R Flexpen SC (21:11)
[2023-11-13 21:12] LABS: Glucose - Point of Care 96 mg/dl (70-99)
[2023-11-14 07:00] VITALS: BP 114/68
[2023-11-14] MEDS: DUONEB 3 ML INH ×2 (07:03→19:35)
[2023-11-14 07:07] LABS: % Basophils 0.2 % (0-2); % Immature Granulocytes 1.5 % (0-0.5); % Lymphocytes 12.4 % (20.5-51.1); % Monocytes 14.4 % (1.7-9.3); % Neutrophils 71.5 % (42.2-75.2); Absolute Immature Granulocytes 0.1 10^3/uL (0-0.05); Absolute Lymphocytes 0.7 10^3/uL (1.2-3.4); Absolute Monocytes 0.8 10^3/uL (0.1-0.6); Absolute Neutrophils 3.9 10^3/uL (1.4-6.5); Hematocrit 31.5 % (39.0-52.0); Hemoglobin 10.5 g/dL (13.0-18.0); Mean Corp Hgb Conc. 33.3 g/dL (33.0-37.0); Mean Corpuscular Hgb 32.9 pg (27.0-31.0); Mean Corpuscular Volume 98.7 fL (80.0-94.0); Mean Platelet Volume 10.6 fL (7.4-10.4); Nucleated Red Blood Cells % 0 % (-); Platelet Count 197 10^3/uL (130-400); Red Blood Cell Count 3.19 10^6/uL (4.70-6.10); White Blood Cell Count 5.4 10^3/uL (4.8-10.8)
[2023-11-14] MEDS: SYNTHROID 200 MCG PO (07:20)
[2023-11-14 07:40] LABS: Blood Urea Nitrogen 27 mg/dl (9-20); Calcium 9.5 mg/dl (8.4-10.2); Chloride 90 mmol/L (98-107); Estimated Creatinine Clearance 100 ml/min; Glucose 116 mg/dl (70-99); Potassium 4.5 mmol/L (3.5-5.1); Sodium 134 mmol/L (135-145); eGFR > 60.00
[2023-11-14 07:50] LABS: Carbon Dioxide 43 mmol/L (22-30)
[2023-11-14 08:38] LABS: Glucose - Point of Care 122 mg/dl (70-99)
[2023-11-14] MEDS: NovoLIN R Flexpen SC ×2 (08:46→21:37)
[2023-11-14] MEDS: PROTONIX 40 MG PO (08:53)
[2023-11-14] MEDS: DEPAKOTE (12 HR RELEASE) 250 MG PO ×2 (08:53→21:38)
[2023-11-14] MEDS: JANUVIA 100 MG PO (08:53)
[2023-11-14] MEDS: LIPITOR 20 MG PO (08:53)
[2023-11-14] MEDS: CARDIZEM CD 120 MG PO (08:53)
[2023-11-14] MEDS: NORVASC 5 MG PO (08:54)
[2023-11-14] MEDS: GLUCOPHAGE 1000 MG PO ×2 (08:54→17:07)
[2023-11-14] MEDS: VITAMIN B-12 500 MCG PO (08:54)
[2023-11-14] MEDS: DEPAKOTE (12 HR RELEASE) 1000 MG PO ×2 (08:55→21:37)
[2023-11-14] MEDS: CLARITIN 10 MG PO (08:55)
[2023-11-14] MEDS: SAFETUSSIN DM (SUGAR/ALCOHOL FREE) 200 MG PO (08:56)
[2023-11-14] MEDS: LANTUS 0.25 UNITS SC (08:58)
--- NOTE | 2023-11-14 09:41 | VNURNOTE ---
Chart reviewed. Called [facility], spoke with MICHAEL Venegas. Confirmed home 02, patient is current with PCP Dr Edwards. Informed her of plan for [facility] PT, OT, Nrsg. Confirmed contact number. Referral placed in [facility].
--- NOTE | 2023-11-14 11:29 | W.PN.HOSP.TC ---
Today's Communication/Plan
-
dc back to [facility] today
Assessment / Plan
Assessment / Plan
Assessment:
Acute on chronic hypoxic/hypercarbic RF
Underlying hx of COPD
- required BiPAP overnight, now on to 2-4 NC (baseline 4L NC)
- suspected aspiration event (chronic aspiration), no suggestion of acute COPD or PNA after review with ICU/Pulm; Abx and steroids discontinued
- speech therapy eval appreciated on soft/bite sized foods
- prn nebs
Essential Hypertension
- continue Diltiazem and lisinopril
Hyperlipidemia
- continue atorvastatin
Diabetes Mellitus, Type II
Hyperglycemia
- continue Januvia/Metformin
- continue Lantus/Regular insulin
Hypothyroidism
- continue levothyroxine
Epilepsy
- continue Depakote
Schizophrenia
- continue hydroxyzine, iloperidone, olanzapine
Dysphagia
- speech therapy eval appreciated on soft/bite sized foods
GERD
- continue Protonix
Hx of developmental delay
DVT ppx: Lovenox
Code Status: Full
More than 30 minutes spent in discharge including
Final examination of the patient
Summarizing hospital stay
Instructions for continuing care to all relevant caregivers
Preparation of discharge records, prescriptions, and referral forms
Total time spent (in minutes): 45
Anticipated Discharge: Today
Subjective/Interval History
-
Date of Service: November 14, 2023
denies any complaints
no SOB or chest pain noted
on baseline O2
Objective Data
-
Labs:
Laboratory Results
11/14/23
06:47
WBC 5.4
Hgb 10.5 L
Hct 31.5 L
Plt Count 197
Sodium 134 L
Potassium 4.5
Chloride 90 L
Carbon Dioxide 43 H
BUN 27 H
Creatinine 0.7
Glucose 116 H
Calcium 9.5
Vital Signs:
Vital Signs
Temp Pulse Resp BP Pulse Ox
97.3 F 78 15 114/68 92
11/14/23 07:00 11/14/23 07:05 11/14/23 07:05 11/14/23 07:00 11/14/23 07:05
I&O
11/13/23 11/14/23 11/15/23
06:59 06:59 06:59
Intake Total 480 / 480
Output Total 500 / 500
Balance -500 / -500 480 / 480
Physical Exam
-
General: No Apparent Distress
HEENT: Normocephalic and Atraumatic
Respiratory: Negative Wheezes or Rhonchi
Cardiac: Regular Rhythm and S1/S2
GI: Soft
Genito-urinary: No Costovertebral Tender
Neuro: AO x 3
Psych: Calm
Data Reviewed
-
Total Time Spent with Patient (in minutes): 45
Labs: Labs Reviewed by me
--- NOTE | 2023-11-14 11:37 | W.DS.TRANS ---
DC Summary - [facility]
-
Discharge Instructions:
Discharge Diagnosis/Procedures aspiration pneumonitis, chronic aspiration,
chronic hypoxia
Additional Diets IDDSI soft and bite sized, thin liquids
Activity As tolerated
Other Services VN
Instructions:
Stand-Alone Forms:
Changes to Home Medications: No
Discharge Medications:
DC Medications w/original date entered in [employer]
fexofenadine 180 mg tablet 180 mg PO DAILY Allergies 07/08/19
levothyroxine 200 mcg tablet 200 mcg PO DAILY@0600 Thyroid 07/08/19
acetaminophen 325 mg tablet (Tylenol) 650 mg PO Q4HPRN PRN mild pain 04/24/23
atorvastatin 20 mg tablet 20 mg PO DAILY High Cholesterol 04/24/23
polyethylene glycol 3350 17 gram oral powder packet (Miralax) 17 g PO DAILYPRN PRN constipation 04/25/23
cyanocobalamin (vitamin B-12) 500 mcg tablet 500 mcg PO DAILY Supplement 06/17/23
divalproex 250 mg tablet,delayed release 250 mg PO BID@ mental health 06/17/23
divalproex 500 mg tablet,delayed release 1,000 mg PO BID@ mental health 06/17/23
albuterol sulfate 90 mcg/actuation aerosol inhaler 2 puff inhalation R Q4HPRN PRN copd 09/13/23
ipratropium 0.5 mg-albuterol 3 mg (2.5 mg base)/3 mL nebulization soln 3 ml inhalation R BID Lung/Breathing Issues 09/27/23
sitagliptin phosphate 100 mg tablet (Januvia) 100 mg PO DAILY Diabetes 10/14/23
metformin 500 mg tablet 1,000 mg (2 x 500 mg) PO BID@ Diabetes #0 tabs 10/16/23
aluminum hydrox-magnesium carb 95 mg-358 mg/15 mL oral suspension (Acid Gone Antacid) 15 ml PO DAILYPRN PRN gerd 11/12/23
amlodipine 5 mg tablet (Norvasc) 5 mg PO DAILY Blood Pressure 11/12/23
dextromethorphan-guaifenesin 10 mg-100 mg/5 mL oral liquid (Omaira-Tussin DM) 10 ml PO Q4HPRN PRN cough 11/12/23
dextromethorphan-guaifenesin 10 mg-100 mg/5 mL oral liquid (Tussin DM) 10 ml PO Q6HPRN PRN cough 11/12/23
dextromethorphan-guaifenesin 20 mg-400 mg tablet (Mucus Relief DM) 1 tab PO BIDPRN PRN couGh 11/12/23
diltiazem HCl 120 mg capsule,extended release 24 hr 120 mg PO DAILY Diabetes 11/12/23
insulin glargine 100 unit/mL (3 mL) subcutaneous pen (Basaglar KwikPen U-100 Insulin) 25 unit SC DAILY Diabetes 11/12/23
insulin regular human 100 unit/mL (3 mL) subcutaneous pen (Novolin R FlexPen) 1 sliding scale dose SC ACHS Diabetes 11/12/23
ipratropium 0.5 mg-albuterol 3 mg (2.5 mg base)/3 mL nebulization soln 3 ml inhalation R Q4HPRN PRN sob 11/12/23
olanzapine 15 mg tablet 30 mg PO HS Mental Health/Anxiety 11/12/23
omeprazole 20 mg capsule,delayed release 20 mg PO DAILY Gastrointestinal Issue 11/12/23
quetiapine 50 mg tablet (Seroquel) 50 mg PO HS Mental Health/Anxiety 11/12/23
tamsulosin 0.4 mg capsule (Flomax) 0.4 mg PO QPM Urinary Issue 11/12/23
Home Medication Changes
Pending Results: No
Total time spent discharging patient (in min): 42
[2023-11-14 12:21] LABS: Glucose - Point of Care 216 mg/dl (70-99)
--- NOTE | 2023-11-14 13:13 | W.PN.PUL3 ---
Today's Communication / Plan
-
Continue aspiration precautions
No indication for steroids or antibiotics
Head of bed elevated, maintain saturation around 90%
Disposition efforts
Assessment
-
Patient is a 63-year-old male with previous history of developmental delay, COPD, schizophrenia, diabetes presents to ER from [facility] for evaluation of shortness of breath. He had previously been evaluated in ER for similar complaints.
Pulse ox on arrival was 94% while on his baseline 4 L. He has mild rhonchi and expiratory wheeze at the bases. Chest x-ray demonstrating possible right perihilar pneumonia. He has a history of recurrent aspiration on prior VSE. ABG obtained
indicating acute on chronic hypercarbic respiratory failure, placed on BiPAP. For this reason he is admitted to ICU.
Acute on chronic hypercapnic respiratory failure, recurrent
ABG 7./
R perihilar infiltrate, possible PNA
Recurrent aspiration history/suspected cause
SOB
Conditions present prior to admission:
COPD on home 2 L/moderate-severe
Follows with Dr. Addison: On DuoNeb/Pulmicort nebulizer-unable to perform inhaler maneuver.
Obstructive sleep apnea/obesity hypoventilation syndrome: Intolerant to CPAP
AB.3270/64. History of chronic hypercapnic respiratory failure
Chronic hypoxic hypercarbic RF
Recurrent suspected aspiration pneumonia
Speech evaluation 09/28/2023: Mild oropharyngeal dysphagia on video barium swallow 06/07/2023
Suspect noncompliance with diet at [place]
L basilar infiltrate on CXR and CT June 2023, adm , negative PCT, received ceftriaxone and azithromycin for 2 d and atbs were d/c
Mild
GERD
Hypothyroidism
HTN
Schizophrenia
Anemia
Nephrolithiasis
BPH
Polydipsia
Sz
T2DM
Legally blind
Glaucoma
COVID
Cholecystectomy
Former Smoker
NHR
Disabled
Plan/recommendations
At this time, patient appears to be comfortable.
No use of accessory muscles, answering questions, just had lunch
He has baseline cognitive impairment, stable
Denies pain at this time.
Oxygen needs: stable on home 2L usage
Prior history of lung disease: COPD
Has chronic CO2 retention, has refused PAP, does not use as OP
Supplemental O2 as indicated to maintain sats > 89%
CXR/CT reviewed indicating possible small R perihilar PNA vs pneumonitis
He has history of recurrent aspiration/frequent admissions
Placed on empiric abx on admission
No indication for steroids
No clear evidence of pneumonia, discontinued
Diet advancement per team
School Teacher recommendations
Aspiration precautions, HOB > 30 degrees
Speech therapy eval, known to their service/prior VSE reviewed
Disposition efforts note
dDiagnostic Data
Chest X-Ray: 11/12/23- Patchy opacity in the right lung base may represent atelectasis or mild pneumonia in the appropriate clinical setting. No large pleural effusion or pneumothorax. The cardiomediastinal silhouette is stable. Chronic degenerative
changes of the spine. Mild thoracic levoscoliosis.
10/14/23- Improved findings suggesting right lower lobe pneumonia. Findings suggesting COPD.
CT Scan: CHEST 09/13/23- 1. No CTA evidence for an acute pulmonary thromboembolism.
2. Small right pleural effusion.
3. Patchy airspace opacity in the inferior right lower lobe most suspicious for mild pneumonia.
4. Mildly enlarged right hilar lymph node, nonspecific but favored to be reactive.
Echo: 04/28/23- Contrast used. Hyperdynamic left ventricular systolic function. LV ejection fraction is 70-75%. Mild aortic stenosis. No prior study available for comparison.
PFT's:
Reports and relevant images were personally reviewed.
Subjective Data
-
Date of Service:
Date of Service: November 14, 2023
Subjective:
Evaluating patient post ICU stay. Patient is comfortable, eating lunch. He denies shortness of breath. Denies chest pain, cough. He states he stopped smoking 25 years ago. Developmental delay noted
Objective Data
Data Reviewed
Vital Signs / I&O / Oxygen:
Vital Signs
Temp Pulse Resp BP Pulse Ox
97.3 F 78 15 114/68 92
11/14/23 07:00 11/14/23 07:05 11/14/23 07:05 11/14/23 07:00 11/14/23 07:05
Intake and Output
11/13/23 11/14/23 11/15/23
06:59 06:59 06:59
Intake Total 480 / 480
Output Total 500 / 500
Balance -500 / -500 480 / 480
SaO2 92
Nasal Cannula flow liters per 4
minute
Physical Exam
General: Comfortable and Other (Large neck)
HEENT: Normocephalic
Cardiovascular: S1-S2, Regular Rhythm, Murmur (n) and Rub (n)
Respiratory: Wheeze (n), Crackles (n), Rhonchi (n), Non-Labored Respirations and Other (Bronchial, equal breath sounds)
GI: Soft, Non Distended and Non Tender
Neurology: Awake, Alert and No Motor Deficits (Moves all extremities, conversant)
Skin: Cyanosis (n), Jaundice (n), Rash (n) and Bruising (Few scattered)
Labs/Micro/Reports
Lab Data
11/14/23 06:47
11/14/23 06:47
[2023-11-14] MEDS: NovoLIN R Flexpen 9 UNITS SC (13:16)
--- NOTE | 2023-11-14 13:33 | CM ---
Addendum entered by QI Cheatham 11/14/23 17:22:
Will ask PT to reevaluate as [facility] stated that they can't take patient at his current level of functioning. If he needs SNF, he will be a level 2 assessment/30 day exception.
Original Note:
Spoke with previous CM on case. Received notification of patient's discharge. [facility] aware # for report [phone]. Will complete medical necessity for transfer.
Plan: Case management will continue to follow and assist with discharge planning. Back to [facility]. Medical necessity completed for transfer.
[2023-11-14 15:00] VITALS: BP 122/72
[2023-11-14 16:47] LABS: Glucose - Point of Care 200 mg/dl (70-99)
[2023-11-14] MEDS: NovoLIN R Flexpen 6 UNITS SC (17:05)
[2023-11-14] MEDS: FLOMAX 0.4 MG PO (17:07)
[2023-11-14 21:35] LABS: Glucose - Point of Care 83 mg/dl (70-99)
[2023-11-14] MEDS: SEROQUEL 50 MG PO (21:37)
[2023-11-14] MEDS: ZYPREXA 30 MG PO (21:38)
[2023-11-14 23:15] VITALS: BP 112/64
[2023-11-15] MEDS: SYNTHROID 200 MCG PO (05:41)
[2023-11-15 07:00] VITALS: BP 116/65
[2023-11-15 08:17] LABS: Glucose - Point of Care 78 mg/dl (70-99)
[2023-11-15 08:30] LABS: % Basophils 0.7 % (0-2); % Eosinophils 0.2 % (0-6); % Immature Granulocytes 4.5 % (0-0.5); % Lymphocytes 34.8 % (20.5-51.1); % Monocytes 15.6 % (1.7-9.3); % Neutrophils 44.2 % (42.2-75.2); Absolute Immature Granulocytes 0.2 10^3/uL (0-0.05); Absolute Lymphocytes 1.5 10^3/uL (1.2-3.4); Absolute Monocytes 0.7 10^3/uL (0.1-0.6); Absolute Neutrophils 1.9 10^3/uL (1.4-6.5); Hematocrit 32.7 % (39.0-52.0); Hemoglobin 10.9 g/dL (13.0-18.0); Mean Corp Hgb Conc. 33.3 g/dL (33.0-37.0); Mean Corpuscular Hgb 32.9 pg (27.0-31.0); Mean Corpuscular Volume 98.8 fL (80.0-94.0); Mean Platelet Volume 10.1 fL (7.4-10.4); Nucleated Red Blood Cells % 0.5 % (-); Platelet Count 203 10^3/uL (130-400); Red Blood Cell Count 3.31 10^6/uL (4.70-6.10); Red Cell Dist. Width 14.4 % (11.5-14.5); White Blood Cell Count 4.2 10^3/uL (4.8-10.8)
--- NOTE | 2023-11-15 08:45 | W.PN.PUL3 ---
Today's Communication / Plan
-
Continue current management
Disposition efforts
We will sign off. Please call with questions
Assessment
-
Patient is a 63-year-old male with previous history of developmental delay, COPD, schizophrenia, diabetes presents to ER from [facility] for evaluation of shortness of breath. He had previously been evaluated in ER for similar complaints.
Pulse ox on arrival was 94% while on his baseline 4 L. He has mild rhonchi and expiratory wheeze at the bases. Chest x-ray demonstrating possible right perihilar pneumonia. He has a history of recurrent aspiration on prior VSE. ABG obtained
indicating acute on chronic hypercarbic respiratory failure, placed on BiPAP. For this reason he is admitted to ICU.
Acute on chronic hypercapnic respiratory failure, recurrent
ABG 7.29/55
R perihilar infiltrate, possible PNA
Recurrent aspiration history/suspected cause
SOB
Conditions present prior to admission:
COPD on home 2 L/moderate-severe
Follows with Dr. Addison: On DuoNeb/Pulmicort nebulizer-unable to perform inhaler maneuver.
Obstructive sleep apnea/obesity hypoventilation syndrome: Intolerant to CPAP
AB.32//64. History of chronic hypercapnic respiratory failure
Chronic hypoxic hypercarbic RF
Recurrent suspected aspiration pneumonia
Speech evaluation 09/28/2023: Mild oropharyngeal dysphagia on video barium swallow 06/07/2023
Suspect noncompliance with diet at [place]
L basilar infiltrate on CXR and CT June 2023, adm , negative PCT, received ceftriaxone and azithromycin for 2 d and atbs were d/c
Mild
GERD
Hypothyroidism
HTN
Schizophrenia
Anemia
Nephrolithiasis
BPH
Polydipsia
Sz
T2DM
Legally blind
Glaucoma
COVID
Cholecystectomy
Former Smoker
NHR
Disabled
Plan/recommendations
At this time, patient appears to be comfortable.
No use of accessory muscles, answering questions, presently on room air
He has baseline cognitive impairment, stable
Denies pain at this time.
Describes chronic cough
Oxygen needs: stable on home 2L usage
Prior history of lung disease: COPD
Has chronic CO2 retention, has refused PAP, does not use as OP
Supplemental O2 as indicated to maintain sats > 89%
CXR/CT reviewed indicating possible small R perihilar PNA vs pneumonitis
He has history of recurrent aspiration/frequent admissions
Placed on empiric abx on admission
No indication for steroids
No clear evidence of pneumonia, discontinued
Diet advancement per team
Collaborating Supervising Physician recommendations
Aspiration precautions, HOB > 30 degrees
Speech therapy eval, known to their service/prior VSE reviewed
Disposition efforts note
We will sign off. Please call with questions
dDiagnostic Data
Chest X-Ray: 11/12/23- Patchy opacity in the right lung base may represent atelectasis or mild pneumonia in the appropriate clinical setting. No large pleural effusion or pneumothorax. The cardiomediastinal silhouette is stable. Chronic degenerative
changes of the spine. Mild thoracic levoscoliosis.
10/14/23- Improved findings suggesting right lower lobe pneumonia. Findings suggesting COPD.
CT Scan: CHEST 09/13/23- 1. No CTA evidence for an acute pulmonary thromboembolism.
2. Small right pleural effusion.
3. Patchy airspace opacity in the inferior right lower lobe most suspicious for mild pneumonia.
4. Mildly enlarged right hilar lymph node, nonspecific but favored to be reactive.
Echo: 04/28/23- Contrast used. Hyperdynamic left ventricular systolic function. LV ejection fraction is 70-75%. Mild aortic stenosis. No prior study available for comparison.
PFT's:
Reports and relevant images were personally reviewed.
Subjective Data
-
Date of Service:
Date of Service: November 15, 2023
Subjective:
Patient is feeling well. He is on room air. He denies shortness of breath, chest pain. He admits to chronic cough. Appears comfortable
Objective Data
Data Reviewed
Vital Signs / I&O / Oxygen:
Vital Signs
Temp Pulse Resp BP Pulse Ox
98.6 F 69 17 116/65 92
11/15/23 07:00 11/15/23 07:00 11/15/23 07:00 11/15/23 07:00 11/15/23 07:00
Intake and Output
11/14/23 11/15/23 11/16/23
06:59 06:59 06:59
Intake Total 480 / 480 1140 / 1140
Output Total 1240 / 1240
Balance 480 / 480 -100 / -100
SaO2 92
Nasal Cannula flow liters per 4
minute
Physical Exam
General: Comfortable and Other (Large neck)
HEENT: Normocephalic
Cardiovascular: S1-S2, Regular Rhythm, Murmur (n) and Rub (n)
Respiratory: Wheeze (n), Crackles (n), Rhonchi (n), Non-Labored Respirations and Other (Bronchial, equal breath sounds)
GI: Soft, Non Distended and Non Tender
Neurology: Awake, Alert and No Motor Deficits (Moves all extremities, conversant)
Skin: Cyanosis (n), Jaundice (n), Rash (n) and Bruising (Few scattered)
Labs/Micro/Reports
Lab Data
11/15/23 07:53
[2023-11-15 08:49] LABS: Blood Urea Nitrogen 21 mg/dl (9-20); Calcium 9.1 mg/dl (8.4-10.2); Carbon Dioxide 40 mmol/L (22-30); Chloride 91 mmol/L (98-107); Estimated Creatinine Clearance 100 ml/min; Glucose 72 mg/dl (70-99); Potassium 4.5 mmol/L (3.5-5.1); Sodium 134 mmol/L (135-145); eGFR > 60.00
[2023-11-15] MEDS: NovoLIN R Flexpen SC ×2 (09:58→17:21)
[2023-11-15] MEDS: VITAMIN B-12 500 MCG PO (09:59)
[2023-11-15] MEDS: DEPAKOTE (12 HR RELEASE) 250 MG PO (09:59)
[2023-11-15] MEDS: GLUCOPHAGE 1000 MG PO ×2 (09:59→17:21)
[2023-11-15] MEDS: CARDIZEM CD 120 MG PO (10:00)
[2023-11-15] MEDS: PROTONIX 40 MG PO (10:00)
[2023-11-15] MEDS: CLARITIN 10 MG PO (10:00)
[2023-11-15] MEDS: JANUVIA 100 MG PO (10:00)
[2023-11-15] MEDS: LIPITOR 20 MG PO (10:00)
[2023-11-15] MEDS: DEPAKOTE (12 HR RELEASE) 1000 MG PO (10:01)
[2023-11-15] MEDS: SAFETUSSIN DM (SUGAR/ALCOHOL FREE) 200 MG PO (10:02)
[2023-11-15] MEDS: LANTUS SC (10:12)
[2023-11-15] MEDS: NORVASC 5 MG PO (10:12)
[2023-11-15 11:20] VITALS: BP 136/63; PULSE 70; O2SAT 96
[2023-11-15 11:27] VITALS: BP 136/63; PULSE 71; O2SAT 96
--- NOTE | 2023-11-15 11:38 | W.PN.HOSP.TC ---
Today's Communication/Plan
-
medically stable for discharge pending dispo efforts/CM aware.
Assessment / Plan
Assessment / Plan
Assessment:
Acute on chronic hypoxic/hypercarbic RF
Underlying hx of COPD
- required BiPAP overnight, now on to 2-4 NC (baseline 4L NC)
- suspected aspiration event (chronic aspiration), no suggestion of acute COPD or PNA after review with ICU/Pulm; Abx and steroids discontinued
- speech therapy eval appreciated on soft/bite sized foods
- prn nebs
Essential Hypertension
- continue Diltiazem and lisinopril
Hyperlipidemia
- continue atorvastatin
Diabetes Mellitus, Type II
Hyperglycemia
- continue Januvia/Metformin
- continue Lantus/Regular insulin
Hypothyroidism
- continue levothyroxine
Epilepsy
- continue Depakote
Schizophrenia
- continue hydroxyzine, iloperidone, olanzapine
Dysphagia
- speech therapy eval appreciated on soft/bite sized foods
GERD
- continue Protonix
Hx of developmental delay
DVT ppx: Lovenox
Code Status: Full
Anticipated Discharge: Today
Subjective/Interval History
-
Date of Service: November 15, 2023
no new overnight events
Objective Data
-
Labs:
Laboratory Results
11/15/23
07:53
WBC 4.2 L
Hgb 10.9 L
Hct 32.7 L
Plt Count 203
Sodium 134 L
Potassium 4.5
Chloride 91 L
Carbon Dioxide 40 H
BUN 21 H
Creatinine 0.7
Glucose 72
Calcium 9.1
Vital Signs:
Vital Signs
Temp Pulse Resp BP Pulse Ox
98.6 F 69 17 116/65 92
11/15/23 07:00 11/15/23 07:00 11/15/23 07:00 11/15/23 07:00 11/15/23 07:00
I&O
11/14/23 11/15/23 11/16/23
06:59 06:59 06:59
Intake Total 480 / 480 1140 / 1140
Output Total 1240 / 1240
Balance 480 / 480 -100 / -100
Physical Exam
-
General: No Apparent Distress
HEENT: Normocephalic and Atraumatic
Respiratory: Negative Wheezes
Cardiac: Regular Rhythm and S1/S2
GI: Soft
Neuro: AO x 3
Psych: Calm
Data Reviewed
-
Total Time Spent with Patient (in minutes): 41
Labs: Labs Reviewed by me
[2023-11-15 11:44] LABS: Glucose - Point of Care 189 mg/dl (70-99)
[2023-11-15] MEDS: DUONEB INH (11:44)
[2023-11-15] MEDS: NovoLIN R Flexpen 6 UNITS SC (12:36)
--- NOTE | 2023-11-15 12:50 | CM ---
Reviewed chart, Patient did well in PT. Indication is for return to [place] with [facility]. [facility] that patient is doing better in therapy and will not need SNF.
Placed a call to [facility] and spoke with Maryann who was advised that patient is back to what they stated is his baseline.
She stated that the number for report is [phone] fax is [phone]
Maryann stated that any new medications should be faxed to [facility] at [phone]
Plan: Case management will continue to follow and assist with discharge planning. Back to [facility] with [facility].
[2023-11-15 15:00] VITALS: BP 134/72
[2023-11-15] MEDS: FLOMAX 0.4 MG PO (17:22)
[2023-11-15 17:26] LABS: Glucose - Point of Care 91 mg/dl (70-99)
== END 2023-11-15 18:28 | disposition home health service (06) | DRG 177 ==
LOC: 3 WEST ACU 14:10
PROVIDERS: Internal Medicine Critical Care Medicine; Physician Assistant Medical; ADMITTING PHYSICIAN Internal Medicine; ATTENDING PHYSICIAN Internal Medicine; EMERGENCY PHYSICIAN Emergency Medicine; OTHER PHYSICIAN Internal Medicine
PROC: 5A09357 Assistance with Respiratory Ventilation, Less than 24 Consecutive Hours, Continuous Positive Airway Pressure (ICD-10-PCS; 2023-11-12)
DX: J69.0 Pneumonitis due to inhalation of food and vomit (principal); J96.21 Acute and chronic respiratory failure with hypoxia; J96.22 Acute and chronic respiratory failure with hypercapnia; E66.2 Morbid (severe) obesity with alveolar hypoventilation; E87.29 Other acidosis; I10 Essential (primary) hypertension; E11.9 Type 2 diabetes mellitus without complications; E03.9 Hypothyroidism, unspecified; G40.909 Epilepsy, unspecified, not intractable, without status epilepticus; F20.9 Schizophrenia, unspecified; J44.9 Chronic obstructive pulmonary disease, unspecified; D64.9 Anemia, unspecified; Z99.81 Dependence on supplemental oxygen; E78.5 Hyperlipidemia, unspecified; R13.12 Dysphagia, oropharyngeal phase; K21.9 Gastro-esophageal reflux disease without esophagitis; R41.89 Other symptoms and signs involving cognitive functions and awareness; R62.50 Unspecified lack of expected normal physiological development in childhood; H54.8 Legal blindness, as defined in USA; M41.9 Scoliosis, unspecified; H40.9 Unspecified glaucoma; N40.0 Benign prostatic hyperplasia without lower urinary tract symptoms; Z68.25 Body mass index [BMI] 25.0-25.9, adult; Z91.119 Patient's noncompliance with dietary regimen due to unspecified reason; Z79.4 Long term (current) use of insulin; Z79.84 Long term (current) use of oral hypoglycemic drugs; Z79.899 Other long term (current) drug therapy; Z86.16 Personal history of COVID-19; Z87.891 Personal history of nicotine dependence; Z87.442 Personal history of urinary calculi
CPT/HCPCS: 71045; 80048; 80053; 82805; 82962; 83735; 84439; 84443; 84484; 85025; 85027; 85610; 85730; 87811; 92610; 93005; 94640; 94660; 96365; 96375; 97116; 97163; 97167; 97530; 97535; 99291

== ENCOUNTER 2023-11-22 19:55 | Inpatient (IN) | payer MEDICARE, OTHER, SELFPAY ==
[2023-11-22] VITALS (9 sets, daily range): BP systolic 106–141; BP diastolic 59–88; BMI 30.8; BMI 30.6
[2023-11-22 14:39] LABS: Hematocrit 32.7 % (39.0-52.0); Hemoglobin 10.4 g/dL (13.0-18.0); Mean Corp Hgb Conc. 31.8 g/dL (33.0-37.0); Mean Corpuscular Hgb 31.9 pg (27.0-31.0); Mean Corpuscular Volume 100.3 fL (80.0-94.0); Mean Platelet Volume 10.8 fL (7.4-10.4); Platelet Count 182 10^3/uL (130-400); Red Blood Cell Count 3.26 10^6/uL (4.70-6.10); Red Cell Dist. Width 14.6 % (11.5-14.5); White Blood Cell Count 5.7 10^3/uL (4.8-10.8)
[2023-11-22 14:42] LABS: ALT (SGPT) 14 U/L (0-50); AST (SGOT) 18 U/L (17-59); Albumin 3.4 g/dl (3.5-5.0); Alkaline Phosphatase 58 U/L (38-126); Blood Urea Nitrogen 15 mg/dl (9-20); COVID-19 Antigen Negative (Negative); Calcium 9.3 mg/dl (8.4-10.2); Chloride 95 mmol/L (98-107); Estimated Creatinine Clearance > 125 ml/min; Glucose 237 mg/dl (70-99); Potassium 4.6 mmol/L (3.5-5.1); Sodium 137 mmol/L (135-145); Total Bilirubin 0.4 mg/dl (0.2-1.3); Total Protein 5.7 g/dl (6.3-8.2); eGFR > 60.00
[2023-11-22 14:49] LABS: Carbon Dioxide 36 mmol/L (22-30)
[2023-11-22 15:04] LABS: Absolute Neutrophils -Man Diff 3.5 10^3/uL (1.4-6.5); Band Neutrophils 5 % (0-3); Eosinophils 2 % (0-6); Lymphocytes 12 % (20-51); Metamyelocytes 1 % (-); Monocytes 20 % (2-9); Myelocytes 2 % (-); Normal RBC Morphology Yes; Platelets Checked Yes; Segmented Neutrophils 58 % (42-75)
[2023-11-22 15:05] LABS: Total Cells Counted 100
--- NOTE | 2023-11-22 15:48 | ED.GENMED ---
History of Present Illness
<Dinora Lindsay PA-C - Last Filed: 11/22/23 20:54>
General
Chief Complaint: Breathing Problem
Source: patient
Exam Limitations: none
Time Seen by Provider: 11/22/23 15:22
Nursing documentation reviewed up to this point in time: agreed with
History of Present Illness
History of Present Illness:
This is a 63-year-old male with a past medical history of COPD, developmental delays, diabetes, hypothyroidism presenting to the emergency department today with concerns of hypoxia. EMS reports that patient due to his COPD is chronically on 3 to 4
L but at his facility today, they noted that he was satting in the low 90s which is unusual for him. Patient himself denies any shortness of breath, any coughing, any increased or change in his sputum production. Patient denies any chest pain or
fevers or chills. Patient lives at [facility]. Staff there apparently reported that he has been experiencing generalized achiness and increasing lethargy. Patient denies feeling ill and reports that he was sent here
because of low oxygen. Patient denies abdominal pain, nausea, vomiting.
Past History
<Dinora Lindsay PA-C - Last Filed: 11/22/23 20:54>
Past History
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 Limited vision on left eye. )
ED Past Surgical History: None
Social History
Tobacco: Former smoker
Alcohol: None
Drug: None
Personal: Single
Living: half-way
Employment: Disabled
Family History
Family History: Other (Reviewed and noncontributory)
Review of Systems
<CARLA Wilkes Last Filed: 11/22/23 20:54>
Review of Systems
All Other Systems: ROS reviewed and negative except as documented in HPI and ROS
Phy Exam
<Dinora Lindsay PA-C - Last Filed: 11/22/23 20:54>
Physical Exam
Physical Exam:
General: Patient is well appearing and in no acute distress; non-toxic
Skin: Warm and dry, no rashes or lesions
Head: Normocephalic, atraumatic
Eyes: Sclera non-icteric. EOMs intact.
Cardiac: Regular rate and rhythm, no murmurs.
Peripheral Vascular: No lower extremity swelling or edema.
Pulm: Increased respiratory rate, end expiratory wheezes noted bilaterally. No rhonchi or crackles.
Abdomen: No abdominal tenderness to palpation.
Neuro: CN II-XII intact, no focal neurologic deficits.
Psychiatric: Appropriate mood and affect.
Scores
<Dinora Lindsay PA-C - Last Filed: 11/22/23 20:54>
Heart Failure Risk
Heart Failure Risk Score: Not Applicable
Course
<Dinora Lindsay PA-C - Last Filed: 11/22/23 20:54>
Orders/Labs/Results
Orders:
Orders
11/22/23 14:14
COVID-19 Antigen Urgent
Source: Nasal Swab
Complete Blood Count/With Diff Urgent
Comprehensive Metabolic Panel Urgent
Manual Differential Urgent
11/22/23 Dinner
2000 calorie (17 carb) Diabetic
11/22/23 16:14
CR Chest - 2 Views Urgent
Comment:
Reason For Exam: hypoxia
11/22/23 16:15
Ipratropium/Albuterol Sulfate [Duoneb] 3 ml INH R NOW ONE
11/22/23 16:37
Influenza A+B Rapid Molecular Urgent
TUSHAR Source: Nasal Swab
Specimen Description:
11/22/23 16:56
Electrocardiogram (*1) Urgent
Reason for Study: Shortness of Breath
EKG- Treatment ONCE
11/22/23 17:48
Electrocardiogram (*1) Urgent
Reason for Study: Shortness of Breath
EKG- Treatment ONCE
11/22/23 18:05
Dexamethasone Sod Phosphate [Decadron] 10 mg IV NOW STA
Ipratropium/Albuterol Sulfate [Duoneb] 3 ml INH R NOW STA
11/22/23 18:42
Azithromycin 500 mg/250 ml [Zithromax Infusion] 500 mg in 250 ml IV NOW
CefTRIAXone [Rocephin] 1,000 mg IV NOW STA
11/22/23 19:40
Admit/Transfer Patient As Directed
Co-Sign Provider:
Level of Care: Inpatient admission
Assign to:: Medical/Surgical
Physician / Group: melissa
Diagnosis: pneumonia, copd ex
Reason for Hospitalization: pneumonia, copd ex
Expected length of stay greater than two midnights?: Yes
ELOS- Estimated Length of Stay in days: 2
I certify the patient meets the requirements for IP care: Yes
11/22/23 19:41
Code Status As Directed
Resuscitation Status: Full Code
PRN Pain Medication Management As Directed
May give lesser potent ordered pain med per pt: Yes
preference::
Protocol:: Medication orders for pain may be administered in a
manner that supports deferring to patient preference
when the pt is:
- Requesting an ordered lesser potent pain medication.
Least to most potent pain medications are defined
as: acetaminophen < NSAID < tramadol < opioids
(morphine, oxycodone, hydromorphone).
- Requesting a lesser dose of the same medication IF
ORDERED.
- Requesting a less intrusive route of administration
if both routes are prescribed by the provider (PO <
IV).
11/22/23 20:34
Acetaminophen [Tylenol] 650 mg PO Q4HPRN PRN
Al Hydroxide/mg Carbonate [Gaviscon Liquid] 15 ml PO DAILYPRN PRN
Azithromycin 500 mg/250 ml [Zithromax Infusion] 500 mg in 250 ml IV Q24H
CefTRIAXone [Rocephin] 1,000 mg IV Q24H
Dexamethasone Sod Phosphate [Decadron] 4 mg IV Q12H
Dextrose 50%-Water [Dextrose 50% Syringe] 12.5 grams IV [id number] PRN
Divalproex Delayed Rel. 12 Hr [Depakote (12 Hr Release)] 1,000 mg PO BID@
Divalproex Delayed Rel. 12 Hr [Depakote (12 Hr Release)] 250 mg PO BID@
Glucagon [GlucaGen] 1 mg IM PRN PRN
Guaifenesin Dm (Sugar Free) [Safetussin Dm (Sugar/Alcohol Free)] DOSE mg PO Q4HPRN PRN
Guaifenesin Dm (Sugar Free) [Safetussin Dm (Sugar/Alcohol Free)] DOSE mg PO Q6HPRN PRN
Guaifenesin [Mucinex] 600 mg PO Q14BGSU PRN
Heparin 5,000 units SC Q12
Ipratropium/Albuterol Sulfate [Duoneb] 3 ml INH R Q4HPRN PRN
Ipratropium/Albuterol Sulfate [Duoneb] 3 ml INH R QID
METFORMIN HCl [Glucophage] 1,000 mg PO BID
Polyethylene Glycol Powder [Miralax] 17 grams PO DAILYPRN PRN
11/22/23 20:34
Activity As Directed
Activity Level: As Tolerated
Bedside Glucose Monitoring As Directed
Frequency: AC&HS
Additional Instructions:: Change to q6h if pt on TPN, tube feeding or not eating
Intake/ Output As Directed
Frequency: Per unit guidelines
Vital Signs As Directed
Frequency: Per unit guidelines
DX Deep Vein Thrombosis Video Routine
11/22/23 22:00
Olanzapine [Zyprexa] 30 mg PO HS
Quetiapine Fumarate [Seroquel] 50 mg PO HS
Tamsulosin [Flomax] 0.4 mg PO HS
11/23/23 06:00
Basic Metabolic Panel IN AM
Complete Blood Count/With Diff IN AM
Glycohemoglobin (HgbA1c) IN AM
Levothyroxine [Synthroid] 200 mcg PO DAILY@0600
11/23/23 07:30
Insulin Aspart Corrective Low [Novolog Flexpen-Low Resistance] See Protocol SC AC
11/23/23 08:00
Amlodipine [Norvasc] 5 mg PO DAILY
Atorvastatin [Lipitor] 20 mg PO DAILY
Cyanocobalamin [Vitamin B-12] 500 mcg PO DAILY
Diltiazem Extended Release [Cardizem Cd] 120 mg PO DAILY
Loratadine [Claritin] 10 mg PO DAILY
Omeprazole Suspension [Prilosec Baby Oral Suspension] 20 mg PO DAILY
Sitagliptin Phosphate [Januvia] 100 mg PO DAILY
insulin glargine [Lantus Solostar U-100 Insulin] 25 unit SC DAILY
Abnormal Lab Results
11/22/23
14:14
RBC 3.26 L 10^6/uL
(4.70-6.10)
Hgb 10.4 L g/dL
(13.0-18.0)
Hct 32.7 L %
(39.0-52.0)
MCV 100.3 H fL
(80.0-94.0)
MCH 31.9 H pg
(27.0-31.0)
MCHC 31.8 L g/dL
(33.0-37.0)
RDW 14.6 H %
(11.5-14.5)
MPV 10.8 H fL
(7.4-10.4)
Band Neutrophils 5 H %
(0-3)
Lymphocytes (Manual) 12 L %
(20-51)
Monocytes (Manual) 20 H %
(2-9)
Chloride 95 L mmol/L
(98-107)
Carbon Dioxide 36 H mmol/L
(22-30)
Creatinine 0.6 L mg/dL
(0.7-1.3)
Glucose 237 H mg/dl
(70-99)
Total Protein 5.7 L g/dl
(6.3-8.2)
Albumin 3.4 L g/dl
(3.5-5.0)
11/22/23 14:14
11/22/23 14:14
Vital Signs
Initial and Last Documented VS:
Initial Vital Signs
BP Pulse Ox
122/59 95
11/22/23 13:53 11/22/23 13:53
Last Documented Vital Signs
Temp Pulse Resp BP Pulse Ox
98.8 F 85 24 123/67 93
11/22/23 14:01 11/22/23 20:15 11/22/23 20:15 11/22/23 18:00 11/22/23 18:30
<Eva Moreno MD - Last Filed: 11/22/23 19:26>
Orders/Labs/Results
Orders:
Orders
11/22/23 14:14
COVID-19 Antigen Urgent
Source: Nasal Swab
Complete Blood Count/With Diff Urgent
Comprehensive Metabolic Panel Urgent
Manual Differential Urgent
11/22/23 Dinner
2000 calorie (17 carb) Diabetic
11/22/23 16:14
CR Chest - 2 Views Urgent
Comment:
Reason For Exam: hypoxia
11/22/23 16:15
Ipratropium/Albuterol Sulfate [Duoneb] 3 ml INH R NOW ONE
11/22/23 16:37
Influenza A+B Rapid Molecular Urgent
TUSHAR Source: Nasal Swab
Specimen Description:
11/22/23 16:56
Electrocardiogram (*1) Urgent
Reason for Study: Shortness of Breath
EKG- Treatment ONCE
11/22/23 17:48
Electrocardiogram (*1) Urgent
Reason for Study: Shortness of Breath
EKG- Treatment ONCE
11/22/23 18:05
Dexamethasone Sod Phosphate [Decadron] 10 mg IV NOW STA
Ipratropium/Albuterol Sulfate [Duoneb] 3 ml INH R NOW STA
11/22/23 18:42
Azithromycin 500 mg/250 ml [Zithromax Infusion] 500 mg in 250 ml IV NOW
CefTRIAXone [Rocephin] 1,000 mg IV NOW STA
11/22/23 19:40
Admit/Transfer Patient As Directed
Co-Sign Provider:
Level of Care: Inpatient admission
Assign to:: Medical/Surgical
Physician / Group: melissa
Diagnosis: pneumonia, copd ex
Reason for Hospitalization: pneumonia, copd ex
Expected length of stay greater than two midnights?: Yes
ELOS- Estimated Length of Stay in days: 2
I certify the patient meets the requirements for IP care: Yes
11/22/23 19:41
Code Status As Directed
Resuscitation Status: Full Code
PRN Pain Medication Management As Directed
May give lesser potent ordered pain med per pt: Yes
preference::
Protocol:: Medication orders for pain may be administered in a
manner that supports deferring to patient preference
when the pt is:
- Requesting an ordered lesser potent pain medication.
Least to most potent pain medications are defined
as: acetaminophen < NSAID < tramadol < opioids
(morphine, oxycodone, hydromorphone).
- Requesting a lesser dose of the same medication IF
ORDERED.
- Requesting a less intrusive route of administration
if both routes are prescribed by the provider (PO <
IV).
11/22/23 20:34
Acetaminophen [Tylenol] 650 mg PO Q4HPRN PRN
Al Hydroxide/mg Carbonate [Gaviscon Liquid] 15 ml PO DAILYPRN PRN
Azithromycin 500 mg/250 ml [Zithromax Infusion] 500 mg in 250 ml IV Q24H
CefTRIAXone [Rocephin] 1,000 mg IV Q24H
Dexamethasone Sod Phosphate [Decadron] 4 mg IV Q12H
Dextrose 50%-Water [Dextrose 50% Syringe] 12.5 grams IV [id number] PRN
Divalproex Delayed Rel. 12 Hr [Depakote (12 Hr Release)] 1,000 mg PO BID@
Divalproex Delayed Rel. 12 Hr [Depakote (12 Hr Release)] 250 mg PO BID@
Glucagon [GlucaGen] 1 mg IM PRN PRN
Guaifenesin Dm (Sugar Free) [Safetussin Dm (Sugar/Alcohol Free)] DOSE mg PO Q4HPRN PRN
Guaifenesin Dm (Sugar Free) [Safetussin Dm (Sugar/Alcohol Free)] DOSE mg PO Q6HPRN PRN
Guaifenesin [Mucinex] 600 mg PO [id number] PRN
Heparin 5,000 units SC Q12
Ipratropium/Albuterol Sulfate [Duoneb] 3 ml INH R Q4HPRN PRN
Ipratropium/Albuterol Sulfate [Duoneb] 3 ml INH R QID
METFORMIN HCl [Glucophage] 1,000 mg PO BID
Polyethylene Glycol Powder [Miralax] 17 grams PO DAILYPRN PRN
11/22/23 20:34
Activity As Directed
Activity Level: As Tolerated
Bedside Glucose Monitoring As Directed
Frequency: AC&HS
Additional Instructions:: Change to q6h if pt on TPN, tube feeding or not eating
Intake/ Output As Directed
Frequency: Per unit guidelines
Vital Signs As Directed
Frequency: Per unit guidelines
DX Deep Vein Thrombosis Video Routine
11/22/23 22:00
Olanzapine [Zyprexa] 30 mg PO HS
Quetiapine Fumarate [Seroquel] 50 mg PO HS
Tamsulosin [Flomax] 0.4 mg PO HS
11/23/23 06:00
Basic Metabolic Panel IN AM
Complete Blood Count/With Diff IN AM
Glycohemoglobin (HgbA1c) IN AM
Levothyroxine [Synthroid] 200 mcg PO DAILY@0600
11/23/23 07:30
Insulin Aspart Corrective Low [Novolog Flexpen-Low Resistance] See Protocol SC AC
11/23/23 08:00
Amlodipine [Norvasc] 5 mg PO DAILY
Atorvastatin [Lipitor] 20 mg PO DAILY
Cyanocobalamin [Vitamin B-12] 500 mcg PO DAILY
Diltiazem Extended Release [Cardizem Cd] 120 mg PO DAILY
Loratadine [Claritin] 10 mg PO DAILY
Omeprazole Suspension [Prilosec Baby Oral Suspension] 20 mg PO DAILY
Sitagliptin Phosphate [Januvia] 100 mg PO DAILY
insulin glargine [Lantus Solostar U-100 Insulin] 25 unit SC DAILY
Abnormal Lab Results
11/22/23
14:14
RBC 3.26 L 10^6/uL
(4.70-6.10)
Hgb 10.4 L g/dL
(13.0-18.0)
Hct 32.7 L %
(39.0-52.0)
MCV 100.3 H fL
(80.0-94.0)
MCH 31.9 H pg
(27.0-31.0)
MCHC 31.8 L g/dL
(33.0-37.0)
RDW 14.6 H %
(11.5-14.5)
MPV 10.8 H fL
(7.4-10.4)
Band Neutrophils 5 H %
(0-3)
Lymphocytes (Manual) 12 L %
(20-51)
Monocytes (Manual) 20 H %
(2-9)
Chloride 95 L mmol/L
(98-107)
Carbon Dioxide 36 H mmol/L
(22-30)
Creatinine 0.6 L mg/dL
(0.7-1.3)
Glucose 237 H mg/dl
(70-99)
Total Protein 5.7 L g/dl
(6.3-8.2)
Albumin 3.4 L g/dl
(3.5-5.0)
11/22/23 14:14
11/22/23 14:14
Vital Signs
Initial and Last Documented VS:
Initial Vital Signs
BP Pulse Ox
122/59 95
11/22/23 13:53 11/22/23 13:53
Last Documented Vital Signs
Temp Pulse Resp BP Pulse Ox
98.8 F 85 24 123/67 93
11/22/23 14:01 11/22/23 20:15 11/22/23 20:15 11/22/23 18:00 11/22/23 18:30
Karollt;Dinora Lindsay PA-C - Last Filed: 11/22/23 20:54>
MDM/Problems Addressed
Differential Diagnosis Includes:
ddx include COPD exacerbation, pneumonia, COVID 19 infection, PE
MDM/Problems Addressed:
Hypoxia:
This is a 63-year-old male with a past medical history of COPD, developmental delays, diabetes, hypothyroidism presenting to the emergency department today with concerns of hypoxia. EMS reports that patient due to his COPD is chronically on 3 to 4
L but at his facility today, they noted that he was satting in the low 90s which is unusual for him. I was able to get in contact with nursing from [facility] who reports that patient had episode of low pulse ox of 85% even after DuoNeb
treatment. Here in the ER, patient is well-appearing but he does have increased work of breathing increased respiratory rate but no accessory muscle use he does have an expiratory wheezes. He is afebrile. He was treated with multiple DuoNeb
treatments with minimal improvement. He did have decreased pulse ox with ambulation. Chest x-ray was obtained which appears to demonstrate a possible right-sided developing pneumonia. Will start IV antibiotics and referred for admission. Case
discussed with my attending.
Chronic conditions affecting care:
COPD, developmental delay, GERD, diabetes
Acute Exacerbation and/or Progression of Chronic Illness:
COPD
<Dinora Lindsay PA-C - Last Filed: 11/22/23 20:54>
*Radiology
Radiology exam reviewed: preliminary read by ED provider (Possible right sided pneumonia)
*Pulse Oximetry
Patient hypoxic: yes
*EKG
Interpreted by ED Provider?: Yes
EKG Intrepretation Date: 11/22/23
Interpretation: abnormal
Comparison EKG: changes noted
Heart Rate: 82
Rate: normal
Rhythm: sinus
[place]: right axis deviation
Interval: normal interval and normal QT interval
QRS Pattern: normal QRS
Ischemia: non-specific ST changes
*Critical Care Note
Total Time (30-74mins, 75-104mins- exclusive of procedures): Not Applicable
Data Reviewed
Review of Other/Old Records Reveals: Records (Reviewed discharge summary from 11/14/2023, reviewed ER physician documentation from 11/12/2023)
Source: patient and records
Prescriptions/Medications Considered But Not Given:
n/a
Further Testing Considered But Not Given:
n/a
<Dinora Lindsay PA-C - Last Filed: 11/22/23 20:54>
Update Note
Update Note:
4:20 pm-- I attempted to call nurses station at [facility] for full story. No one picked
5:50 pm-- Nurse reports that he was sent to the emergency department because he was satting 85% on 4L despite being given 1 DuoNeb treatment. Nursing reports that he did not appear to be in respiratory distress at the time.
6:47 pm--patient had a total of 4 DuoNeb treatments today. He had one en route, one at [facility], and I gave him two here in the emergency department. On reevaluation, he appears to still have end expiratory wheezes and does not sound as if he
is moving air well. Will give dose of Decadron and start IV antibiotics. Chest x-ray appears to have a right sided pneumonia. Patient's pulse ox dropped to 90% while on his 3 to 4 L with ambulation, and when he got back to his room after this
test, his to 85% on 3 to 4 L. Will refer for admission.
ED Attending Note
<Dinora Lindsay PA-C - Last Filed: 11/22/23 20:54>
-
Portions of this chart may have been created with voice recognition software.� Occasional wrong word or��sound alike� substitutions may have occurred due to the inherent limitations of voice recognition software.
<Eva Moreno MD - Last Filed: 11/22/23 19:26>
ED Attending Note
Patient seen and examined by attending physician: Yes
I performed the substantive portion of visit, reviewed & personally made and approve the management plan that is documented in note by myself or ALFREDO.: Yes
ED Attending Note:
Patient is a 63-year-old male with history of COPD on 3 to 4 L, developmental delay presenting to the emergency department with hypoxia. Per medics patient was found to have a pulse ox in the 80s. He did not complain of any difficulty breathing.
He does have a chronic cough. He has been having some chills though he states that it is ongoing. He has received DuoNebs and does state that he feels much better. In total patient did have a DuoNeb at his prison. He had another nebulizer
with the medics. Here he has received additional nebulizer treatments and does feel slightly better. Vitals here notable for requiring 4 L nasal cannula. Exam does show crackles at the right base. Concern for pneumonia versus COPD exacerbation.
Less likely to be PE. Patient exam not consistent with ACS. Chest x-ray per my interpretation with possible developing right sided lower lobe pneumonia. He was on his normal home oxygen however during ambulation patient did desaturate. Given the
chest x-ray and ambulatory desaturation we will give antibiotics and admit for further treatment/antibiotics.
Discharge Plan
Departure
Patient Disposition: Admit
Date of Disposition: 11/22/23
Time of Disposition: 19:14
Admit to: Med/Surg
Presentation/result/management discussed w/ accepting MD/DO: Hospitalist
Patient with high blood pressure during this ER visit?: No
Condition: Fair
Discharge Problem:
COPD exacerbation
Interventions
Interventions:
*Risk Screen - Suicide Last Done: 11/22/23 13:53
*General Assessment Last Done: 11/22/23 13:53
*Neglect/Abuse Screening Last Done: 11/22/23 13:53
ED- Fall Risk Assessment Last Done: 11/22/23 20:31
*ED COVID-19 Vaccine History Last Done: 11/22/23 20:31
*Nursing Disposition Last Done: 11/22/23 20:31
ED- Cardiac Assessment Last Done: 11/22/23 13:53
ED- Pulmonary Assessment Last Done: 11/22/23 13:53
Discharge Date and Time
Discharge Date/Time: 11/22/23 20:31
[2023-11-22] MEDS: DUONEB 3 ML INH ×2 (16:19→18:09)
[2023-11-22] MEDS: DECADRON 10 MG IV (18:09)
[2023-11-22] MEDS: ROCEPHIN 1000 MG IV (18:50)
[2023-11-22] MEDS: ZITHROMAX INFUSION 250 IV (18:53)
--- NOTE | 2023-11-22 19:44 | HPS.HSE ---
Family Physician
-
Family Physician: Rubio Edwards
Chief Complaint
-
hypoxia
History of Present Illness
63-year-old male past medical history of COPD on 3 to 4 L, developmental delay, diabetes, hypothyroidism, epilepsy, GERD, hypertension, schizophrenia, BPH, glaucoma, left eye vision loss, presenting with hypoxia. Today he was satting in the low 90s
is unusual for him. He has chronic cough and dyspnea but states that the cough and dyspnea has gotten worse in the past few months without any worsening in the past few days. Cough is dry. He denies any chest pain. He denies any fevers or
chills. He denies any nausea vomiting or diarrhea.
He quit smoking more than 25 years ago. He rarely drinks alcohol.
Medical History
Past Medical History
Past Medical History: Reports Other (COPD on 3 to 4 L, developmental delay, diabetes, hypothyroidism, epilepsy, GERD, hypertension, schizophrenia, BPH, glaucoma, left eye vision loss)
Past Surgical History: Reports None
Social History
Tobacco: Former Smoker
Alcohol: Occasional
Drug: None
Family History
Family History: Not pertinent
Allergies / Home Medications
Allergies reflects when Allergies were last updated in [employer].
Home Medications with original date entered in [employer]
Allergy/Medication List:
Allergies
Allergy/AdvReac Type Severity Reaction Status Date / Time
No Known Allergies Allergy Verified 11/12/23 16:32
Home Medications
fexofenadine 180 mg tablet 180 mg PO DAILY Allergies 07/08/19
levothyroxine 200 mcg tablet 200 mcg PO DAILY@0600 Thyroid 07/08/19
acetaminophen 325 mg tablet (Tylenol) 650 mg PO Q4HPRN PRN mild pain 04/24/23
atorvastatin 20 mg tablet 20 mg PO DAILY High Cholesterol 04/24/23
polyethylene glycol 3350 17 gram oral powder packet (Miralax) 17 g PO DAILYPRN PRN constipation 04/25/23
cyanocobalamin (vitamin B-12) 500 mcg tablet 500 mcg PO DAILY Supplement 06/17/23
divalproex 250 mg tablet,delayed release 250 mg PO BID@0800,1999 mental health 06/17/23
divalproex 500 mg tablet,delayed release 1,000 mg PO BID@0800,1999 mental health 06/17/23
albuterol sulfate 90 mcg/actuation aerosol inhaler 2 puff inhalation R Q4HPRN PRN copd 09/13/23
ipratropium 0.5 mg-albuterol 3 mg (2.5 mg base)/3 mL nebulization soln 3 ml inhalation R BID Lung/Breathing Issues 09/27/23
sitagliptin phosphate 100 mg tablet (Januvia) 100 mg PO DAILY Diabetes 10/14/23
aluminum hydrox-magnesium carb 95 mg-358 mg/15 mL oral suspension (Acid Gone Antacid) 15 ml PO DAILYPRN PRN gerd 11/12/23
amlodipine 5 mg tablet (Norvasc) 5 mg PO DAILY Blood Pressure 11/12/23
dextromethorphan-guaifenesin 10 mg-100 mg/5 mL oral liquid (Omaira-Tussin DM) 10 ml PO Q4HPRN PRN cough 11/12/23
dextromethorphan-guaifenesin 10 mg-100 mg/5 mL oral liquid (Tussin DM) 10 ml PO Q6HPRN PRN cough 11/12/23
diltiazem HCl 120 mg capsule,extended release 24 hr 120 mg PO DAILY Diabetes 11/12/23
insulin regular human 100 unit/mL (3 mL) subcutaneous pen (Novolin R FlexPen) 1 sliding scale dose SC ACHS Diabetes 11/12/23
ipratropium 0.5 mg-albuterol 3 mg (2.5 mg base)/3 mL nebulization soln 3 ml inhalation R Q4HPRN PRN sob 11/12/23
olanzapine 15 mg tablet 30 mg PO HS Mental Health/Anxiety 11/12/23
omeprazole 20 mg capsule,delayed release 20 mg PO DAILY Gastrointestinal Issue 11/12/23
quetiapine 50 mg tablet (Seroquel) 50 mg PO HS Mental Health/Anxiety 11/12/23
tamsulosin 0.4 mg capsule (Flomax) 0.4 mg PO HS Urinary Issue 11/12/23
guaifenesin 600 mg tablet, extended release 12 hr (Mucus Relief ER) 600 mg PO [id number] PRN cough/conjestion 11/22/23
insulin glargine 100 unit/mL (3 mL) subcutaneous pen (Lantus Solostar U-100 Insulin) 25 unit SC DAILY 11/22/23
metformin 1,000 mg tablet 1,000 mg PO BID 11/22/23
Review of Systems
-
History Source: Patient
A 12 point ROS was completed and negative except as noted: Yes
Constitutional: Reports No Symptoms
EENT: Reports No Symptoms
Respiratory: Reports See HPI
Cardiac: Reports No Symptoms
Abdomen/GI: Reports No Symptoms
: Reports No Symptoms
Musculoskeletal: Reports No Symptoms
Skin: Reports No Symptoms
Neurological: Reports No Symptoms
Endocrine: Reports No Symptoms
Hematologic/Lymphatic: Reports No Symptoms
Psych: Reports No Symptoms
Physical Exam
Vital Signs
Vital Signs
Temp Pulse Resp BP Pulse Ox
98.8 F 85 18 123/67 93
11/22/23 14:01 11/22/23 19:00 11/22/23 19:00 11/22/23 18:00 11/22/23 18:30
Physical Exam
General: Well Developed, Well Nourished and No Apparent Distress
HEENT: NormoCephalic, Moist mucous membranes and Atraumatic
Respiratory: Clear
Cardiac: S1/S2 and Regular Rhythm; No Murmur or Rub
GI: Soft, Non Tender, Non Distended and Normal Bowel Sounds; No Organomegaly
Rectal: Deferred by Provider
Musculoskeletal: No Clubbing, No Cyanosis and No Edema
Skin: No Rash
Neuro: Nonfocal/grossly intact
Laboratory Results
-
11/22/23 14:14
11/22/23 14:14
Laboratory Results
Total Bilirubin 0.4 mg/dl (0.2-1.3) 11/22/23 14:14
AST 18 U/L (17-59) 11/22/23 14:14
ALT 14 U/L (0-50) 11/22/23 14:14
Alkaline Phosphatase 58 U/L (38-126) 11/22/23 14:14
Data Reviewed
-
Lab Data: Labs Reviewed by me
Old Records: Reviewed
Impression/Plan
-
IMPRESSION:
PLAN:
# Acute hypoxemic respiratory insufficiency secondary to right upper lobe pneumonia with small right pleural effusion/COPD exacerbation
# History of COPD on 3 to 4 L baseline
-Expiratory wheezes heard by ER physician
-COVID-negative, influenza negative
-Will be unable to check sputum culture
-Ceftriaxone/azithromycin
-DuoNebs every 6 hours
-Continue dexamethasone 4 mg every 12
-Continue guaifenesin
Former smoker
Essential hypertension
-Continue diltiazem
-Continue motor pain
Type 2 diabetes
-Continue Lantus 25 units
-Insulin sliding scale
-Continue metformin
-Continue Januvia
Hypothyroidism
-Continue levothyroxine
Epilepsy
-Continue Depakote
Schizophrenia
-Continue Seroquel, olanzapine
History of developmental delay
GERD
-Continue omeprazole
BPH
-Continue tamsulosin
Left eye vision loss
Chronic anemia
-Hemoglobin stable
Full code
DVT prophylaxis�heparin
Diabetic diet
[2023-11-22] MEDS: DUONEB INH (21:10)
[2023-11-22 21:39] LABS: Glucose - Point of Care 215 mg/dl (70-99)
[2023-11-22] MEDS: SEROQUEL 50 MG PO (22:18)
[2023-11-22] MEDS: ZYPREXA 30 MG PO (22:18)
[2023-11-22] MEDS: DEPAKOTE (12 HR RELEASE) 250 MG PO (22:19)
[2023-11-22] MEDS: DEPAKOTE (12 HR RELEASE) 1000 MG PO (22:19)
[2023-11-22] MEDS: HEPARIN 5000 UNITS SC (22:24)
[2023-11-22] MEDS: GLUCOPHAGE 1000 MG PO (22:24)
[2023-11-22] MEDS: FLOMAX 0.4 MG PO (22:24)
[2023-11-23] VITALS: BP 125/73
[2023-11-23 06:47] LABS: Mean Corp Hgb Conc. 32.4 g/dL (33.0-37.0); Mean Corpuscular Hgb 31.8 pg (27.0-31.0); Mean Corpuscular Volume 98.3 fL (80.0-94.0); Mean Platelet Volume 10.9 fL (7.4-10.4); Platelet Count 199 10^3/uL (130-400); Red Blood Cell Count 3.46 10^6/uL (4.70-6.10); Red Cell Dist. Width 14.2 % (11.5-14.5); White Blood Cell Count 3.5 10^3/uL (4.8-10.8)
[2023-11-23] MEDS: SYNTHROID 200 MCG PO (06:49)
[2023-11-23] MEDS: FLUSH (NSS) 2 FLUSH IV (06:49)
[2023-11-23] MEDS: DECADRON 4 MG IV ×2 (06:49→17:13)
[2023-11-23 07:06] LABS: Blood Urea Nitrogen 19 mg/dl (9-20); Calcium 9.3 mg/dl (8.4-10.2); Chloride 91 mmol/L (98-107); Estimated Creatinine Clearance > 125 ml/min; Glucose 180 mg/dl (70-99); Potassium 4.6 mmol/L (3.5-5.1); Sodium 140 mmol/L (135-145); eGFR > 60.00
[2023-11-23 07:23] LABS: Carbon Dioxide 36 mmol/L (22-30)
[2023-11-23 07:32] LABS: Absolute Neutrophils -Man Diff 2.4 10^3/uL (1.4-6.5); Band Neutrophils 9 % (0-3); Lymphocytes 19 % (20-51); Metamyelocytes 1 % (-); Monocytes 6 % (2-9); Myelocytes 3 % (-); Platelets Checked Yes; Segmented Neutrophils 62 % (42-75)
[2023-11-23 07:33] LABS: Anisocytosis Slight; Normal RBC Morphology No; Total Cells Counted 100
[2023-11-23 07:39] VITALS: BP 136/84
[2023-11-23] MEDS: DUONEB 3 ML INH ×4 (07:48→19:36)
[2023-11-23 07:49] LABS: Glucose - Point of Care 172 mg/dl (70-99)
[2023-11-23] MEDS: NOVOLOG FLEXPEN-LOW RESISTANCE 1 UNITS SC (08:41)
[2023-11-23] MEDS: HEPARIN 5000 UNITS SC ×2 (08:42→21:59)
[2023-11-23] MEDS: LANTUS 0.25 UNITS SC (08:42)
--- NOTE | 2023-11-23 08:42 | VNURNOTE ---
Chart reviewed. [facility] relayed to this author concerns about patient needing skilled placement. [facility] notified. Will continue to monitor hospital course and DC plans.
[2023-11-23] MEDS: PROTONIX 40 MG PO (08:43)
[2023-11-23] MEDS: JANUVIA 100 MG PO (08:43)
[2023-11-23] MEDS: CLARITIN 10 MG PO (08:43)
[2023-11-23] MEDS: LIPITOR 20 MG PO (08:43)
[2023-11-23] MEDS: DEPAKOTE (12 HR RELEASE) 250 MG PO ×2 (08:43→21:58)
[2023-11-23] MEDS: CARDIZEM CD 120 MG PO (08:43)
[2023-11-23] MEDS: DEPAKOTE (12 HR RELEASE) 1000 MG PO ×2 (08:43→21:56)
[2023-11-23] MEDS: NORVASC 5 MG PO (08:43)
[2023-11-23] MEDS: GLUCOPHAGE 1000 MG PO ×2 (08:43→17:06)
[2023-11-23] MEDS: VITAMIN B-12 500 MCG PO (08:44)
[2023-11-23 10:48] LABS: Procalcitonin < 0.05 ng/ml (0.0-0.25)
[2023-11-23 11:11] LABS: Glycohemoglobin (HgbA1c) 7.3 % (4.0-5.6)
[2023-11-23 11:23] LABS: Glucose - Point of Care 358 mg/dl (70-99)
--- NOTE | 2023-11-23 11:28 | W.PN.HOSP.TC ---
Today's Communication/Plan
-
check procal
continue abx/steroids
wean off o2 as possible
Assessment / Plan
Assessment / Plan
1. Right upper lobe pneumonia - aspiration related presumably
Acute on Chronic hypoxic respiratory failure
Chronic hypercapnic Resp failure
Possible COPD flare-up
History of dysphagia/aspiration risk
-Patient was brought in for worsening shortness of breath and some cough
-In ER exam patient was noted to having some wheezing, not present today
-Chest x-ray showing right upper lobe pneumonia
-COVID/influenza has been negative
-No sign of systemic sepsis, patient have some bandemia - steroid related?, check procalcitonin
-Patient being maintained on empiric Rocephin/azithromycin
-Maintain on IV dexamethasone 4 mg every 12 and nebulizer therapy for now
-Last visit patient oxygen requirement was 2-3 L, currently patient is requiring 4 to 5 L nasal cannula, wean off as possible.
2. IDDM
-Continue regimen of Lantus/metformin/Januvia with sliding scale
-Further dose adjustment based on patient blood glucose
3. KATTY
-intolerant to CPAP
History of traumatic brain injury
Mild aortic stenosis
Hypothyroidism
Schizophrenia
History of nephrolithiasis
Legally blind
History of COVID-19 viral infection
History of cholecystectomy
Former smoker
DVT PPX - heparin subq
Full code
Total time spent 53 mins
I personally saw and examined the patient.
I have reviewed all diagnostic interpretations and treatment plans as written.
Time includes patient management by me, time spent at the patients bedside, time to review lab and imaging results, discussing patient care, documentation in the medical record, and time spent with the family or caregiver and discussing care plan
with RN/Consultants.
Anticipated Discharge: 24 - 48 hours
Subjective/Interval History
-
Date of Service: November 23, 2023
Sitting comfortably in bed, having lunch
Oxygen requirement stable on 4-5 L through nasal cannula
Denies of having shortness of breath
Feeling dizzy
Objective Data
-
Labs:
Laboratory Results
11/23/23
05:58
WBC 3.5 L
Hgb 11.0 L
Hct 34.0 L
Plt Count 199
Sodium 140
Potassium 4.6
Chloride 91 L
Carbon Dioxide 36 H
BUN 19
Creatinine 0.5 L
Glucose 180 H
Calcium 9.3
Vital Signs:
Vital Signs
Temp Pulse Resp BP Pulse Ox
97.9 F 92 16 136/84 94
11/23/23 07:39 11/23/23 11:24 11/23/23 11:24 11/23/23 07:39 11/23/23 09:53
I&O
11/22/23 11/23/23 11/24/23
06:59 06:59 06:59
Output Total 600 / 600 650 / 650
Balance -600 / -600 -650 / -650
Review of Systems
-
Unable to obtain full review of systems at this time due to: Other (Limited with h/o of TBI)
Respiratory: Denies Cough or Trouble Breathing
Cardiac: Reports No Symptoms
Abdomen/GI: Reports No Symptoms
Physical Exam
-
General: No Apparent Distress and Comfortable
HEENT: Oxygen (4-5L)
Respiratory: Clear to Auscultation
Cardiac: Regular Rhythm and S1/S2; Negative Murmur or Rub
GI: Soft, Nontender and Nondistended
Musculoskeletal: No Edema
Neuro: Awake, Alert, No Motor Deficits and Nonfocal/Grossly Intact
Psych: Calm
[2023-11-23] MEDS: NOVOLOG FLEXPEN-LOW RESISTANCE 5 UNITS SC (12:41)
--- NOTE | 2023-11-23 14:33 | PTOTSP ---
ST Acute Care Evaluation
Pt currently presents with clinical signs of mild oropharyngeal dysphagia including but not limited to impulsivity with PO intake (rate/size), prolonged mastication and bolus formation, and coughing with liquid ingestion that is indicative of
possible airway compromise. Pt is at an increased risk for aspiration give his cognitive limitations and reduced insight to current deficits/implications.
Recommendations:
- DOWNGRADE pt to SOFT BITE SIZED SOLIDS with THIN LIQUIDS and meds with water as tolerated.
- Aspiration precautions: Fully awake, alert, and upright for all PO intake, SMALL bites/sips, SLOW intake rate, intermittent supervision, and GERD precautions.
- [employer]SULT[employer] to f/u to ensure pt is safely tolerating the recommended diet consistencies and to determine whether or not pt would benefit from an updated instrumental swallow study.
[2023-11-23 15:22] VITALS: BP 113/71
[2023-11-23 16:35] LABS: Glucose - Point of Care 232 mg/dl (70-99)
--- NOTE | 2023-11-23 16:57 | CM ---
Reviewed chart, met with patient to obtain information for assessment. Patient stated that he lives at [facility] and he has two nurses who take care of him. He stated that his RNs are Elizabeth and Jaspal. They assist with his daily needs. He is able to
feed himself. He has o2. He denied using a cane or a walker. He is current with [facility]. Patient has a history of Schizophrenia and developmental delay.
His medications come from [place].
His PCP is Rubio Edwards.
Plan: Case management will continue to follow and assist with discharge planning. Back to [facility] with [facility].
[2023-11-23] MEDS: NOVOLOG FLEXPEN-LOW RESISTANCE 2 UNITS SC (17:06)
[2023-11-23] MEDS: ROCEPHIN 1000 MG IV (17:12)
[2023-11-23] MEDS: STERILE WATER FOR INJECTION 10 ML IV (17:13)
[2023-11-23] MEDS: ZITHROMAX INFUSION 250 IV (17:13)
[2023-11-23 21:08] LABS: Glucose - Point of Care 350 mg/dl (70-99)
[2023-11-23] MEDS: ZYPREXA 30 MG PO (21:57)
[2023-11-23] MEDS: SEROQUEL 50 MG PO (21:57)
[2023-11-23] MEDS: FLOMAX 0.4 MG PO (21:57)
[2023-11-23] MEDS: NOVOLOG FLEXPEN 5 UNITS SC (23:39)
[2023-11-23] MEDS: NOVOLOG FLEXPEN-LOW RESISTANCE SC (23:39)
[2023-11-23 23:48] VITALS: BP 124/68
[2023-11-24 01:56] LABS: Glucose - Point of Care 180 mg/dl (70-99)
[2023-11-24] MEDS: DECADRON 4 MG IV (06:15)
[2023-11-24] MEDS: SYNTHROID 200 MCG PO (06:16)
[2023-11-24] MEDS: DUONEB 3 ML INH ×2 (07:19→11:18)
[2023-11-24 08:00] VITALS: BP 133/76
[2023-11-24 08:22] LABS: Glucose - Point of Care 189 mg/dl (70-99)
[2023-11-24 08:42] LABS: Hematocrit 32.1 % (39.0-52.0); Hemoglobin 10.8 g/dL (13.0-18.0); Mean Corp Hgb Conc. 33.6 g/dL (33.0-37.0); Mean Corpuscular Hgb 32.2 pg (27.0-31.0); Mean Corpuscular Volume 95.8 fL (80.0-94.0); Mean Platelet Volume 10.8 fL (7.4-10.4); Platelet Count 217 10^3/uL (130-400); Red Blood Cell Count 3.35 10^6/uL (4.70-6.10); White Blood Cell Count 5.6 10^3/uL (4.8-10.8)
[2023-11-24] MEDS: NOVOLOG FLEXPEN-LOW RESISTANCE 1 UNITS SC (08:46)
[2023-11-24] MEDS: CARDIZEM CD 120 MG PO (08:48)
[2023-11-24] MEDS: VITAMIN B-12 500 MCG PO (08:48)
[2023-11-24] MEDS: DEPAKOTE (12 HR RELEASE) 250 MG PO (08:48)
[2023-11-24] MEDS: CLARITIN 10 MG PO (08:48)
[2023-11-24] MEDS: GLUCOPHAGE 1000 MG PO (08:49)
[2023-11-24] MEDS: JANUVIA 100 MG PO (08:49)
[2023-11-24] MEDS: LIPITOR 20 MG PO (08:49)
[2023-11-24] MEDS: DEPAKOTE (12 HR RELEASE) 1000 MG PO (08:50)
[2023-11-24] MEDS: PROTONIX 40 MG PO (08:50)
[2023-11-24] MEDS: HEPARIN 5000 UNITS SC (08:50)
[2023-11-24] MEDS: NORVASC 5 MG PO (08:50)
[2023-11-24] MEDS: LANTUS 0.25 UNITS SC (08:57)
[2023-11-24 09:23] LABS: Blood Urea Nitrogen 20 mg/dl (9-20); Calcium 9.4 mg/dl (8.4-10.2); Chloride 86 mmol/L (98-107); Estimated Creatinine Clearance > 125 ml/min; Glucose 170 mg/dl (70-99); Potassium 4.7 mmol/L (3.5-5.1); Sodium 135 mmol/L (135-145); eGFR > 60.00
[2023-11-24 09:35] LABS: Carbon Dioxide 38 mmol/L (22-30)
[2023-11-24 11:43] LABS: Glucose - Point of Care 237 mg/dl (70-99)
--- NOTE | 2023-11-24 12:39 | W.PN.HOSP.TC ---
Today's Communication/Plan
-
d/c to senior care
Assessment / Plan
Assessment / Plan
1. Right upper lobe pneumonia - aspiration related presumably
Acute on Chronic hypoxic respiratory failure
Chronic hypercapnic Resp failure
Possible COPD flare-up
History of dysphagia/aspiration risk
-Patient was brought in for worsening shortness of breath and some cough
-In ER exam patient was noted to having some wheezing, not present today
-Chest x-ray showing right upper lobe pneumonia
-COVID/influenza has been negative
-No sign of systemic sepsis, patient have some bandemia - steroid related?, procal neg,
-Patient being maintained on empiric Rocephin/azithromycin
-Patient to be discharged to senior care with tapering course of steroids and short course of Augmentin
2. IDDM
-Continue regimen of Lantus/metformin/Januvia with sliding scale
-Further dose adjustment based on patient blood glucose
3. KATTY
-intolerant to CPAP
History of traumatic brain injury
Mild aortic stenosis
Hypothyroidism
Schizophrenia
History of nephrolithiasis
Legally blind
History of COVID-19 viral infection
History of cholecystectomy
Former smoker
DVT PPX - heparin subq
Full code
More than 30 minutes spent in discharge including
Final examination of the patient
Summarizing hospital stay
Instructions for continuing care to all relevant caregivers
Preparation of discharge records, prescriptions, and referral forms
Total time spent (in minutes): 38 mins
Anticipated Discharge: Today
Subjective/Interval History
-
Date of Service: November 24, 2023
Sitting comfortably in bed
Remains on oxygen through nasal cannula
Objective Data
-
Labs:
Laboratory Results
11/24/23
07:55
WBC 5.6
Hgb 10.8 L
Hct 32.1 L
Plt Count 217
Sodium 135
Potassium 4.7
Chloride 86 L
Carbon Dioxide 38 H
BUN 20
Creatinine 0.6 L
Glucose 170 H
Calcium 9.4
Vital Signs:
Vital Signs
Temp Pulse Resp BP Pulse Ox
97.7 F 60 16 133/76 94
11/24/23 08:00 11/24/23 11:19 11/24/23 11:19 11/24/23 08:00 11/24/23 07:19
I&O
11/23/23 11/24/23 11/25/23
06:59 06:59 06:59
Intake Total 2150 / 2150
Output Total 600 / 600 1150 / 1150 200 / 200
Balance -600 / -600 1000 / 1000 -200 / -200
Review of Systems
-
Respiratory: Reports No Symptoms
Cardiac: Reports No Symptoms
Abdomen/GI: Reports No Symptoms
Physical Exam
-
General: No Apparent Distress and Comfortable
HEENT: Oxygen (4-5L)
Respiratory: Clear to Auscultation
Cardiac: Regular Rhythm and S1/S2; Negative Murmur or Rub
GI: Soft, Nontender and Nondistended
Musculoskeletal: No Edema
Neuro: Awake, Alert, No Motor Deficits and Nonfocal/Grossly Intact
Psych: Calm
[2023-11-24] MEDS: NOVOLOG FLEXPEN-LOW RESISTANCE 2 UNITS SC (12:41)
--- NOTE | 2023-11-24 13:21 | CM ---
Addendum entered by Marina Vasquez 11/24/23 14:10:
Plan; Home today back to [facility] with [facility]N.
Original Note:
Patient is for discharge today, plan is to home, back to [facility], patient is on 4-5 liters of oxygen, transport will be set up by ambulance.
Nursing will need to call report
Rubi [phone]

[facility]
--- NOTE | 2023-11-24 14:23 | W.DCSUMMARY ---
Discharge Summary
Discharge Data
Date of Admission: 11/22/23
Date of Discharge: 11/24/23
-
Pending Results: No
Hospital Course
Discharging Physician : Dr Lino Oates
Disposition : custodial
Primary care physician : Dr Rubio Edwards
Principal Discharge diagnosis :
Right upper lobe pneumonia - possible aspiration
Acute on chronic hypoxic respiratory failure
Chronic obstructive pulmonary disease flareup
Chronic Discharge diagnosis :
Insulin-dependent diabetes mellitus
Obstructive sleep apnea
History of traumatic brain injury
Mild aortic stenosis
Hypothyroidism
Schizophrenia
History of nephrolithiasis
Legally blind
History of COVID-19 viral infection
History of cholecystectomy
Former smoker
Hospital Course :
Patient is a 63-year-old male with mentioned past medical history was sent to ER for having new onset of hypoxia shortness of breath. Patient have history of chronic hypoxic respiratory failure/aspiration unfortunately with history of traumatic
brain injury patient compliance is a problem. In ER patient was requiring 4 to 5 L oxygen support through nasal cannula. Chest x-ray was showing possible right upper lobe pneumonia. Patient was also felt to having minimal wheezing on exam in ER.
For this reason patient was started on antibiotic and steroids for treatment of pneumonia and COPD flareup. COVID/flu was negative follow-up procalcitonin check was negative and patient may have component of aspiration pneumonitis. After
improvement in symptoms patient was discharged back to senior living with short course of oral Augmentin therapy and finishing course of steroid.\\
Important imaging findings :
None
Procedure findings :
None
Discharge Plan
-
Patient Disposition: Other
Discharge Diagnosis/Procedures: COPD flare up, aspiration pneumonitis
Condition: Fair
Diet: Other diet
Additional Diets: IDDSI 6 - soft and bite sized diet, Thin liquid
Activity: As tolerated
Driving Restrictions: No driving
Bathing Restrictions: OK to Shower
Referrals:
Rubio Edwards, DO [Family Provider] - in one week
Prescriptions:
New
amoxicillin-pot clavulanate 875-125 mg tablet
1 tab PO BID Qty: 6 0RF
prednisone 10 mg tablet
See Rx Instructions .ROUTE .COMPLEX Qty: 20 0RF
Rx Instructions:
Take 4 Tabs daily for 2 days THEN
Take 3 Tabs daily for 2 days THEN
Take 2 Tabs daily for 2 days THEN
Take 1 Tab daily for 2 days
Continued
fexofenadine 180 MG tablet
180 mg PO DAILY
levothyroxine 200 MCG tablet
200 mcg PO DAILY@0600
acetaminophen [Tylenol] 325 mg Tablet
650 mg PO Q4HPRN PRN (Reason: mild pain)
atorvastatin 20 mg tablet
20 mg PO DAILY
polyethylene glycol 3350 [Miralax] 17 gram Powder In Packet
17 g PO DAILYPRN PRN (Reason: constipation)
divalproex 250 mg Tablet,Delayed Release (Dr/Ec)
250 mg PO BID@0800,1999
Patient Comments:
11/22/2023: taken w/ 1000mg = 1250mg
divalproex 500 mg Tablet,Delayed Release (Dr/Ec)
1,000 mg PO BID@0800,2000
Patient Comments:
11/22/2023: taken w/ 250mg = 1250mg
cyanocobalamin (vitamin B-12) 500 mcg Tablet
500 mcg PO DAILY
albuterol sulfate 90 mcg/actuation Hfa Aerosol Inhaler
2 puff INHALATION R Q4HPRN PRN (Reason: copd)
ipratropium-albuterol 0.5 mg-3 mg(2.5 mg base)/3 mL Solution For Nebulization
3 ml INHALATION R BID
Januvia 100 mg Tablet
100 mg PO DAILY
Acid Gone Antacid 95-358 mg/15 mL Suspension
15 ml PO DAILYPRN PRN (Reason: gerd)
ipratropium-albuterol 0.5 mg-3 mg(2.5 mg base)/3 mL Solution For Nebulization
3 ml INHALATION R Q4HPRN PRN (Reason: sob)
dextromethorphan-guaifenesin [Omaira-Tussin DM] 10-100 mg/5 mL Liquid
10 ml PO Q4HPRN PRN (Reason: cough)
dextromethorphan-guaifenesin [Tussin DM] 10-100 mg/5 mL Liquid
10 ml PO Q6HPRN PRN (Reason: cough)
amlodipine [Norvasc] 5 mg Tablet
5 mg PO DAILY
tamsulosin [Flomax] 0.4 mg Capsule
0.4 mg PO HS
omeprazole 20 mg Capsule,Delayed Release(Dr/Ec)
20 mg PO DAILY
diltiazem HCl 120 mg Capsule,Extended Release 24hr
120 mg PO DAILY
olanzapine 15 mg Tablet
30 mg PO HS
Novolin R FlexPen 100 unit/mL (3 mL) Insulin Pen
1 sliding scale dose SC ACHS
Rx Instructions:
100-150=3units, 151-200=6units, 201-250=9units, 251-300=12units, 301-350=14units
quetiapine [Seroquel] 50 mg Tablet
50 mg PO HS
metformin 1,000 mg Tablet
1,000 mg PO BID
insulin glargine [Lantus Solostar U-100 Insulin] 100 unit/mL (3 mL) Insulin Pen
25 unit SC DAILY
guaifenesin [Mucus Relief ER] 600 mg Tablet Extended Release 12hr
600 mg PO [id number] PRN (Reason: cough/conjestion)
Discharge Orders:
Discharge Patient (As Directed); Ordered 11/24/23
Ordered By: Lino Oates
Discharge Date and Time
Print Language: LAO
[2023-11-24 14:45] VITALS: BP 127/68
[2023-11-24] MEDS: DUONEB INH (15:44)
== END 2023-11-24 15:51 | disposition other institution (70) | DRG 177 ==
LOC: 3 WEST ACU 19:55
PROVIDERS: Emergency Medicine; ADMITTING PHYSICIAN Hospitalist; ATTENDING PHYSICIAN Hospitalist; EMERGENCY PHYSICIAN Student in an Organized Health Care Education/Training Program; FAMILY PHYSICIAN Family Medicine
DX: J69.0 Pneumonitis due to inhalation of food and vomit (principal); J96.21 Acute and chronic respiratory failure with hypoxia; J44.1 Chronic obstructive pulmonary disease with (acute) exacerbation; I10 Essential (primary) hypertension; K21.9 Gastro-esophageal reflux disease without esophagitis; E11.9 Type 2 diabetes mellitus without complications; E03.9 Hypothyroidism, unspecified; H40.9 Unspecified glaucoma; F20.9 Schizophrenia, unspecified; D64.9 Anemia, unspecified; G47.33 Obstructive sleep apnea (adult) (pediatric); Z87.820 Personal history of traumatic brain injury; Z87.891 Personal history of nicotine dependence
CPT/HCPCS: 71046; 80048; 80053; 82962; 83036; 84145; 85025; 85027; 87502; 87811; 92610; 93005; 94640; 99285

== ENCOUNTER → 2023-12-11 09:55 | Outpatient (REF) | payer MEDICARE, OTHER, SELFPAY | LOC: RAD 09:55 | PROVIDERS: ATTENDING PHYSICIAN Nurse Practitioner Adult Health; FAMILY PHYSICIAN Family Medicine | DX: R06.02 Shortness of breath (principal) | CPT/HCPCS: 71046 ==

== ENCOUNTER 2023-12-14 12:53 | Inpatient (IN) | payer MEDICARE, OTHER, SELFPAY ==
[2023-12-14] VITALS (17 sets, daily range): BP systolic 120–153; BP diastolic 56–104; PULSE 2–102; BMI 26.6; BMI 27.0
--- NOTE | 2023-12-14 10:15 | ED.GENMED ---
History of Present Illness
<Gala Ortiz PA-C - Last Filed: 12/19/23 07:06>
General
Chief Complaint: Breathing Problem
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
Exam Limitations: developmental stage
Time Seen by Provider: 12/14/23 10:04
Nursing documentation reviewed up to this point in time: agreed with
History of Present Illness
History of Present Illness:
pt is a 63 y/o M
schizophrenia
mild MR
COPD on 3-4 L baseline
aspiaration PNA
epilepsy
niddm
here with resp distress
noticed to be tachypneic and wheezing and hypoxic on his normal 4L
no nebs given that we are aware of
pt has no significant copmlaints; says he wants coffee
denies cp, fever, cough, vomiting
pt has no h/o CHF
Past History
<Gala Ortiz PA-C - Last Filed: 12/19/23 07:06>
Past History
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 Limited vision on left eye. )
ED Past Surgical History: None
Social History
Tobacco: Former smoker
Alcohol: None
Drug: None
Personal: Single
Living: correction
Employment: Disabled
Family History
Family History: Other (Reviewed and noncontributory)
Review of Systems
<Gala Ortiz PA-C - Last Filed: 12/19/23 07:06>
Review of Systems
Allergies reviewed?: Yes
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
All Other Systems: Not applicable
Phy Exam
<Gala Ortiz PA-C - Last Filed: 12/19/23 07:06>
Physical Exam
Physical Exam:
GENERAL: Alert tachypneic, resp distress;
EYE: pupils equal and reactive
NECK: Supple
ENT: o/p clr, mmm.
CARDIAC: Regular rate and rhythm .
LUNGS: Very diminished, tight, wheezing throughout, tachypnea, moderate respiratory distress
ABDOMEN: Soft, without focal tenderness, no r/g, no cvat, normal bowel sounds
NEUROLOGICAL: Alert and oriented, no focal neuro deficits
SKIN: Warm and dry, skin intact.
MUSCULOSKELETAL: Mild pitting symmetric edema 1+ bilaterally, well perfused. neg cristopher's sign
PSYCH: Normal and appropriate interaction.
Scores
<Gala Ortiz PA-C - Last Filed: 12/19/23 07:06>
Heart Failure Risk
Heart Failure Risk Score: Not Applicable
Course
<Gala Ortiz PA-C - Last Filed: 12/19/23 07:06>
Orders/Labs/Results
Orders:
Orders
12/14/23 10:04
Ipratropium/Albuterol Sulfate [Duoneb] 9 ml .ROUTE .STK-MED ONE
Cr Chest Portable [CR Chest Portable - 1 View] Stat
Comment:
Reason For Exam: resp. distress
Reason Study Needs to be Portable: Patient Unstable
12/14/23 10:05
Electrocardiogram (*1) Stat
Reason for Study: Other
Other Reason for Exam: pneumonia
Cardiac Monitoring- Treatment ONCE
EKG- Treatment ONCE
Ipratropium/Albuterol Sulfate [Duoneb] 3 ml INH R NOW STA
12/14/23 10:06
Dexamethasone Sod Phosphate [Decadron] 10 mg IV NOW STA
12/14/23 10:13
Ipratropium/Albuterol Sulfate [Duoneb] 3 ml INH R NOW ONE
Ipratropium/Albuterol Sulfate [Duoneb] 3 ml INH R NOW STA
12/14/23 10:22
COVID-19 Antigen Urgent
Source: Nasal Swab
Complete Blood Count/With Diff Urgent
Comprehensive Metabolic Panel Urgent
Manual Differential Urgent
NT-proBNP Urgent
Troponin I Urgent
Influenza A+B Rapid Molecular Urgent
TUSHAR Source: Nasal Swab
Specimen Description:
12/14/23 11:10
Venous Blood Gas Urgent
%Oxygen/Room Air: bipap
12/14/23 11:19
Cefepime HCl [Maxipime] 2,000 mg IV NOW STA
12/14/23 11:25
Vancomycin [Vancocin] 2,000 mg 0.9% Sodium Chloride 500 ml [Nss] 500 ml IV NOW
12/14/23 11:51
Lactic Acid Urgent
Blood Culture Urgent
TUSHAR Source: Blood/Venous
Specimen Description:
12/14/23 11:53
0.9% Sodium Chloride 1000 ml [Nss] 1,000 ml IV BOLUS
12/14/23 11:57
Lorazepam [Ativan] 0.25 mg IV NOW STA
12/14/23 11:59
ABG [Arterial Blood Gas] Urgent
%Oxygen/Room Air: 50
12/14/23 12:30
Admit/Transfer Patient As Directed
Co-Sign Provider:
Level of Care: Inpatient admission
Assign to:: IMU- Intermediate Care
Physician / Group: htay
Diagnosis: Suspect COPD flare Acute resp distress Acute hypoxic hypercapnic RF
Reason for Hospitalization: Suspect COPD flare
Acute resp distress
Acute hypoxic hypercapnic RF being supported on BiPAP
Expected length of stay greater than two midnights?: Yes
ELOS- Estimated Length of Stay in days: 5
I certify the patient meets the requirements for IP care: Yes
12/14/23 12:34
Code Status As Directed
Resuscitation Status: Full Code
12/14/23 14:11
Acetaminophen [Tylenol] 650 mg PO Q4HPRN PRN
Guaifenesin Dm (Sugar Free) [Safetussin Dm (Sugar/Alcohol Free)] 200 mg PO Q4HPRN PRN
Guaifenesin [Mucinex] 600 mg PO [id number] PRN
Polyethylene Glycol Powder [Miralax] 17 grams PO DAILYPRN PRN
12/14/23 14:11
PULMONARY CONSULT Routine
Consulting Provider: Magalie Weaver
Was physician already notified: Yes
Reason for consult: Suspect COPD flare Acute resp distress Acute hypoxic hypercapnic RF
Activity As Directed
Activity Level: With Assistance
Intake/ Output As Directed
Frequency: Per unit guidelines
Vital Signs As Directed
Frequency: Per unit guidelines
Weight As Directed
Frequency: Daily
Copd Education [RESP] Routine
Ot Eval And Treat Routine
Pt Eval And Treat Routine
Activity Level: With Assistance
DX Deep Vein Thrombosis Video Routine
12/14/23 16:00
Ipratropium/Albuterol Sulfate [Duoneb] 3 ml INH R QID
12/14/23 16:30
Insulin Regular, Human Pen [NovoLIN R Flexpen] DOSE units SC ACHS
12/14/23 17:00
METFORMIN HCl [Glucophage] 1,000 mg PO BID@0800,1700
12/14/23 18:00
Dexamethasone Sod Phosphate [Decadron] 4 mg IV Q8H
Enoxaparin Sodium [Lovenox] 40 mg SC QPM
Piperacillin/Tazo 3.375 Gram [Zosyn] 3.375 gram in 50 ml IV Q6H
12/14/23 20:00
Divalproex Delayed Rel. 12 Hr [Depakote (12 Hr Release)] 250 mg PO BID@0800,2000
12/14/23 22:00
Olanzapine [Zyprexa] 30 mg PO HS
Quetiapine Fumarate [Seroquel] 50 mg PO HS
Tamsulosin [Flomax] 0.4 mg PO HS
12/15/23 05:48
Basic Metabolic Panel IN AM
Complete Blood Count/With Diff IN AM
Procalcitonin IN AM
PCT Algorithmm Indication: Respiratory
12/15/23 06:00
Levothyroxine [Synthroid] 200 mcg PO DAILY@0600
12/15/23 08:00
Amlodipine [Norvasc] 5 mg PO DAILY
Atorvastatin [Lipitor] 20 mg PO DAILY
Azithromycin [Zithromax] 250 mg PO MOWEFR@0800
Cyanocobalamin [Vitamin B-12] 500 mcg PO DAILY
Diltiazem Extended Release [Cardizem Cd] 120 mg PO DAILY
Famotidine [Pepcid] 20 mg PO DAILY
Pantoprazole [Protonix] 40 mg PO DAILY
Sitagliptin Phosphate [Januvia] 100 mg PO DAILY
Abnormal Lab Results
12/14/23 12/14/23 12/14/23
10:22 11:10 11:51
WBC 4.0 L 10^3/uL
(4.8-10.8)
RBC 3.47 L 10^6/uL
(4.70-6.10)
Hgb 11.2 L g/dL
(13.0-18.0)
Hct 35.7 L %
(39.0-52.0)
MCV 102.9 H fL
(80.0-94.0)
MCH 32.3 H pg
(27.0-31.0)
MCHC 31.4 L g/dL
(33.0-37.0)
MPV 10.8 H fL
(7.4-10.4)
Band Neutrophils 4 H %
(0-3)
Monocytes (Manual) 18 H %
(2-9)
pH
pCO2
pO2
HCO3
VBG pCO2 84 H* mmHg
(35-48)
VBG pO2 202 H mmHg
(30-50)
VBG HCO3 43.3 H mmol/L
(22-27)
Chloride 92 L mmol/L
(98-107)
Carbon Dioxide 40 H mmol/L
(22-30)
Creatinine 0.6 L mg/dL
(0.7-1.3)
Glucose 182 H mg/dl
(70-99)
Lactic Acid 0.5 L mmol/L
(0.7-2.0)
Total Protein 5.8 L g/dl
(6.3-8.2)
12/14/23
11:59
WBC
RBC
Hgb
Hct
MCV
MCH
MCHC
MPV
Band Neutrophils
Monocytes (Manual)
pH 7.31 L
(7.35-7.45)
pCO2 93 H* mmHg
(35-48)
pO2 82 L mmHg
(83-108)
HCO3 46.8 H* mmol/L
(21-28)
VBG pCO2
VBG pO2
VBG HCO3
Chloride
Carbon Dioxide
Creatinine
Glucose
Lactic Acid
Total Protein
12/14/23 10:22
12/14/23 10:22
Vital Signs
Initial and Last Documented VS:
Initial Vital Signs
Temp Pulse Resp BP Pulse Ox
100 F 113 40 122/76 98
12/14/23 10:29 12/14/23 10:29 12/14/23 10:29 12/14/23 10:29 12/14/23 10:29
Last Documented Vital Signs
Temp Pulse Resp BP Pulse Ox
97.5 F 87 16 137/87 96
12/19/23 02:44 12/19/23 02:44 12/19/23 02:44 12/19/23 02:44 12/19/23 02:44
<Eva Moreno MD - Last Filed: 12/14/23 11:04>
Orders/Labs/Results
Orders:
Orders
12/14/23 10:04
Ipratropium/Albuterol Sulfate [Duoneb] 9 ml .ROUTE .STK-MED ONE
Cr Chest Portable [CR Chest Portable - 1 View] Stat
Comment:
Reason For Exam: resp. distress
Reason Study Needs to be Portable: Patient Unstable
12/14/23 10:05
Electrocardiogram (*1) Stat
Reason for Study: Other
Other Reason for Exam: pneumonia
Cardiac Monitoring- Treatment ONCE
EKG- Treatment ONCE
Ipratropium/Albuterol Sulfate [Duoneb] 3 ml INH R NOW STA
12/14/23 10:06
Dexamethasone Sod Phosphate [Decadron] 10 mg IV NOW STA
12/14/23 10:13
Ipratropium/Albuterol Sulfate [Duoneb] 3 ml INH R NOW ONE
Ipratropium/Albuterol Sulfate [Duoneb] 3 ml INH R NOW STA
12/14/23 10:22
COVID-19 Antigen Urgent
Source: Nasal Swab
Complete Blood Count/With Diff Urgent
Comprehensive Metabolic Panel Urgent
Manual Differential Urgent
NT-proBNP Urgent
Troponin I Urgent
Influenza A+B Rapid Molecular Urgent
TUSHAR Source: Nasal Swab
Specimen Description:
12/14/23 11:10
Venous Blood Gas Urgent
%Oxygen/Room Air: bipap
12/14/23 11:19
Cefepime HCl [Maxipime] 2,000 mg IV NOW STA
12/14/23 11:25
Vancomycin [Vancocin] 2,000 mg 0.9% Sodium Chloride 500 ml [Nss] 500 ml IV NOW
12/14/23 11:51
Lactic Acid Urgent
Blood Culture Urgent
TUSHAR Source: Blood/Venous
Specimen Description:
12/14/23 11:53
0.9% Sodium Chloride 1000 ml [Nss] 1,000 ml IV BOLUS
12/14/23 11:57
Lorazepam [Ativan] 0.25 mg IV NOW STA
12/14/23 11:59
ABG [Arterial Blood Gas] Urgent
%Oxygen/Room Air: 50
12/14/23 12:30
Admit/Transfer Patient As Directed
Co-Sign Provider:
Level of Care: Inpatient admission
Assign to:: IMU- Intermediate Care
Physician / Group: htay
Diagnosis: Suspect COPD flare Acute resp distress Acute hypoxic hypercapnic RF
Reason for Hospitalization: Suspect COPD flare
Acute resp distress
Acute hypoxic hypercapnic RF being supported on BiPAP
Expected length of stay greater than two midnights?: Yes
ELOS- Estimated Length of Stay in days: 5
I certify the patient meets the requirements for IP care: Yes
12/14/23 12:34
Code Status As Directed
Resuscitation Status: Full Code
12/14/23 14:11
Acetaminophen [Tylenol] 650 mg PO Q4HPRN PRN
Guaifenesin Dm (Sugar Free) [Safetussin Dm (Sugar/Alcohol Free)] 200 mg PO Q4HPRN PRN
Guaifenesin [Mucinex] 600 mg PO [id number] PRN
Polyethylene Glycol Powder [Miralax] 17 grams PO DAILYPRN PRN
12/14/23 14:11
PULMONARY CONSULT Routine
Consulting Provider: Magalie Weaver
Was physician already notified: Yes
Reason for consult: Suspect COPD flare Acute resp distress Acute hypoxic hypercapnic RF
Activity As Directed
Activity Level: With Assistance
Intake/ Output As Directed
Frequency: Per unit guidelines
Vital Signs As Directed
Frequency: Per unit guidelines
Weight As Directed
Frequency: Daily
Copd Education [RESP] Routine
Ot Eval And Treat Routine
Pt Eval And Treat Routine
Activity Level: With Assistance
DX Deep Vein Thrombosis Video Routine
12/14/23 16:00
Ipratropium/Albuterol Sulfate [Duoneb] 3 ml INH R QID
12/14/23 16:30
Insulin Regular, Human Pen [NovoLIN R Flexpen] DOSE units SC ACHS
12/14/23 17:00
METFORMIN HCl [Glucophage] 1,000 mg PO BID@0800,1700
12/14/23 18:00
Dexamethasone Sod Phosphate [Decadron] 4 mg IV Q8H
Enoxaparin Sodium [Lovenox] 40 mg SC QPM
Piperacillin/Tazo 3.375 Gram [Zosyn] 3.375 gram in 50 ml IV Q6H
12/14/23 20:00
Divalproex Delayed Rel. 12 Hr [Depakote (12 Hr Release)] 250 mg PO BID@0800,2000
12/14/23 22:00
Olanzapine [Zyprexa] 30 mg PO HS
Quetiapine Fumarate [Seroquel] 50 mg PO HS
Tamsulosin [Flomax] 0.4 mg PO HS
12/15/23 05:48
Basic Metabolic Panel IN AM
Complete Blood Count/With Diff IN AM
Procalcitonin IN AM
PCT Algorithmm Indication: Respiratory
12/15/23 06:00
Levothyroxine [Synthroid] 200 mcg PO DAILY@0600
12/15/23 08:00
Amlodipine [Norvasc] 5 mg PO DAILY
Atorvastatin [Lipitor] 20 mg PO DAILY
Azithromycin [Zithromax] 250 mg PO MOWEFR@0800
Cyanocobalamin [Vitamin B-12] 500 mcg PO DAILY
Diltiazem Extended Release [Cardizem Cd] 120 mg PO DAILY
Famotidine [Pepcid] 20 mg PO DAILY
Pantoprazole [Protonix] 40 mg PO DAILY
Sitagliptin Phosphate [Januvia] 100 mg PO DAILY
Abnormal Lab Results
12/14/23 12/14/23 12/14/23
10:22 11:10 11:51
WBC 4.0 L 10^3/uL
(4.8-10.8)
RBC 3.47 L 10^6/uL
(4.70-6.10)
Hgb 11.2 L g/dL
(13.0-18.0)
Hct 35.7 L %
(39.0-52.0)
MCV 102.9 H fL
(80.0-94.0)
MCH 32.3 H pg
(27.0-31.0)
MCHC 31.4 L g/dL
(33.0-37.0)
MPV 10.8 H fL
(7.4-10.4)
Band Neutrophils 4 H %
(0-3)
Monocytes (Manual) 18 H %
(2-9)
pH
pCO2
pO2
HCO3
VBG pCO2 84 H* mmHg
(35-48)
VBG pO2 202 H mmHg
(30-50)
VBG HCO3 43.3 H mmol/L
(22-27)
Chloride 92 L mmol/L
(98-107)
Carbon Dioxide 40 H mmol/L
(22-30)
Creatinine 0.6 L mg/dL
(0.7-1.3)
Glucose 182 H mg/dl
(70-99)
Lactic Acid 0.5 L mmol/L
(0.7-2.0)
Total Protein 5.8 L g/dl
(6.3-8.2)
12/14/23
11:59
WBC
RBC
Hgb
Hct
MCV
MCH
MCHC
MPV
Band Neutrophils
Monocytes (Manual)
pH 7.31 L
(7.35-7.45)
pCO2 93 H* mmHg
(35-48)
pO2 82 L mmHg
(83-108)
HCO3 46.8 H* mmol/L
(21-28)
VBG pCO2
VBG pO2
VBG HCO3
Chloride
Carbon Dioxide
Creatinine
Glucose
Lactic Acid
Total Protein
12/14/23 10:22
12/14/23 10:22
Vital Signs
Initial and Last Documented VS:
Initial Vital Signs
Temp Pulse Resp BP Pulse Ox
100 F 113 40 122/76 98
12/14/23 10:29 12/14/23 10:29 12/14/23 10:29 12/14/23 10:29 12/14/23 10:29
Last Documented Vital Signs
Temp Pulse Resp BP Pulse Ox
97.5 F 87 16 137/87 96
12/19/23 02:44 12/19/23 02:44 12/19/23 02:44 12/19/23 02:44 12/19/23 02:44
<Gala Ortiz PA-C - Last Filed: 12/19/23 07:06>
MDM/Problems Addressed
Differential Diagnosis Includes:
copd exac, pna, less likely PE,
MDM/Problems Addressed:
lizett briones 63 y/o M COPD on o2; schizophrenia; from facility; h/o aspiration pna last month on abx then
acute resp distress pulse ox 80s on 4L
very diffusely wheezing, tachypneic, tight, not moving much air
cxr indep reviewed, no Pulm edema
d/w ed attending
placed on bipap with nebs through bipap
pt frequently reassessed
doing better after steroids and nebs and on bipap; getting abg shortly;
temp 100, wbc 4 but with some bands; cxr no definitive pna but goign to cover with abx;
<Gala Ortiz PA-C - Last Filed: 12/19/23 07:06>
*Critical Care Note
Total Time (30-74mins, 75-104mins- exclusive of procedures): 30
comment:
management of airway
Critical care statement: A total of 30 minutes of critical care time was provided for this patient. This includes management of unstable vital signs, evaluation of the patient at bedside, reviewing the patient's pertinent medical records, discussion
with consultants, review of old EKGs and review of pertinent medical records. This time with separate from time utilized to perform the aforementioned documented procedures
ED Attending Note
<Gala Ortiz PA-C - Last Filed: 12/19/23 07:06>
-
Portions of this chart may have been created with voice recognition software.� Occasional wrong word or��sound alike� substitutions may have occurred due to the inherent limitations of voice recognition software.
<Eva Moreno MD - Last Filed: 12/14/23 11:04>
ED Attending Note
Patient seen and examined by attending physician: Yes
I performed the substantive portion of visit, reviewed & personally made and approve the management plan that is documented in note by myself or ALFREDO.: Yes
ED Attending Note:
63-year-old male with history of COPD on nasal cannula with recent admission to the hospital for COPD exacerbation presenting to the emergency department respiratory distress. Difficulty obtaining history given patient's respiratory status however
he does state that he feels slightly better after being on BiPAP. He has been having some chills but no fevers. Otherwise history is limited. Vitals are notable for being tachypneic and tachycardic.
GENERAL: Moderate respiratory
HEENT: normocephalic, extraocular movements intact, moist oral mucosa
NECK: normal inspection
RESPIRATORY: Moderate respiratory distress, tachypneic, sporadic wheezing in all lung shi
CARDIOVASCULAR: regular rate and rhythm
ABDOMEN/: soft, non-distended, non-tender to palpation, no rebound or guarding
EXTREMITIES: non-tender, minimal edema bilaterally
NEUROLOGIC: awake and alert, moves all extremities
SKIN: warm
63-year-old male with history of COPD on nasal cannula, recent admission for COPD exacerbation, epilepsy, developmental delay presenting to the emergency department respiratory distress. He was on nonrebreather and he was placed on BiPAP prior to
my evaluation. During my evaluation he is pulling large tidal volumes. He has received some nebulizer treatments though is still little wheezy. Will continue to give nebulizer treatments. Concern for superimposed pneumonia versus new onset CHF
versus COPD exacerbation. History and exam less like to be PE. Will obtain blood work EKG chest x-ray. He will need admission.
Discharge Plan
Departure
Patient Disposition: Admit
Date of Disposition: 12/14/23
Time of Disposition: 11:21
Admit to: IMU
Presentation/result/management discussed w/ accepting MD/DO: Hospitalist
Discharge Problem:
COPD (chronic obstructive pulmonary disease), Acute on chronic respiratory failure with hypercapnia
Interventions
Interventions:
*Risk Screen - Suicide Last Done: 12/14/23 14:42
*General Assessment Last Done: 12/14/23 10:29
*Neglect/Abuse Screening Last Done: 12/14/23 10:29
ED- Fall Risk Assessment Last Done: 12/14/23 10:41
*ED COVID-19 Vaccine History Last Done: 12/14/23 14:42
*Nursing Disposition Last Done: 12/14/23 14:28
ED- Cardiac Assessment Last Done: 12/14/23 10:41
ED- Pulmonary Assessment Last Done: 12/14/23 10:41
Discharge Date and Time
Discharge Date/Time: 12/14/23 14:29
[2023-12-14] MEDS: DUONEB 3 ML INH ×5 (10:20→19:51)
[2023-12-14] MEDS: DECADRON 10 MG IV (10:26)
[2023-12-14 10:41] LABS: Hematocrit 35.7 % (39.0-52.0); Hemoglobin 11.2 g/dL (13.0-18.0); Mean Corp Hgb Conc. 31.4 g/dL (33.0-37.0); Mean Corpuscular Hgb 32.3 pg (27.0-31.0); Mean Corpuscular Volume 102.9 fL (80.0-94.0); Mean Platelet Volume 10.8 fL (7.4-10.4); Platelet Count 130 10^3/uL (130-400); Red Blood Cell Count 3.47 10^6/uL (4.70-6.10); Red Cell Dist. Width 14.4 % (11.5-14.5)
[2023-12-14 10:51] LABS: ALT (SGPT) 15 U/L (0-50); AST (SGOT) 18 U/L (17-59); Albumin 3.7 g/dl (3.5-5.0); Alkaline Phosphatase 64 U/L (38-126); Blood Urea Nitrogen 18 mg/dl (9-20); Calcium 9.2 mg/dl (8.4-10.2); Chloride 92 mmol/L (98-107); Estimated Creatinine Clearance > 125 ml/min; Glucose 182 mg/dl (70-99); Potassium 4.5 mmol/L (3.5-5.1); Sodium 141 mmol/L (135-145); Total Bilirubin 0.5 mg/dl (0.2-1.3); Total Protein 5.8 g/dl (6.3-8.2); eGFR > 60.00
[2023-12-14 10:53] LABS: COVID-19 Antigen Negative (Negative)
[2023-12-14 11:00] LABS: Segmented Neutrophils 56 % (42-75)
[2023-12-14 11:01] LABS: Absolute Neutrophils -Man Diff 2.4 10^3/uL (1.4-6.5); Band Neutrophils 4 % (0-3); Lymphocytes 22 % (20-51); Monocytes 18 % (2-9); Normal RBC Morphology Yes; Platelets Checked Yes; Total Cells Counted 100
[2023-12-14 11:03] LABS: NT-proBNP 208 pg/ml; Troponin I 0.017 ng/ml
[2023-12-14 11:16] LABS: Venous Blood Gas B.E. 13.9 mmol/L (-4 to +4); Venous Blood Gas HCO3 43.3 mmol/L (22-27); Venous Blood Gas O2 Sat % 99.4 %; Venous Blood Gas pCO2 84 mmHg (35-48); Venous Blood Gas pH 7.32 (7.32-7.43); Venous Blood Gas pO2 202 mmHg (30-50)
[2023-12-14 11:25] LABS: Carbon Dioxide 40 mmol/L (22-30)
[2023-12-14] MEDS: MAXIPIME 2000 MG IV (11:51)
[2023-12-14] MEDS: NSS 1000 IV (11:58)
[2023-12-14] MEDS: ATIVAN 0.25 MG IV (12:03)
[2023-12-14] MEDS: VANCOCIN 540 MG IV (12:05)
--- NOTE | 2023-12-14 12:11 | HPS.HSE ---
Family Physician
-
Family Physician: Rubio Edwards
Chief Complaint
-
acute Resp distress, desat
History of Present Illness
63-year-old male past medical history of COPD on 3 to 4 L, developmental delay, diabetes, hypothyroidism, epilepsy, GERD, hypertension, schizophrenia, BPH, glaucoma, left eye vision loss, presenting with hypoxia/ POx 80s on 4l> EMS started on 15 L
NRM.
ROS:
chronic cough and dyspnea
Cough is dry.
denies any chest pain.
denies any fevers or chills.
denies any nausea vomiting or diarr
Medical History
Past Medical History
Past Medical History: Reports Other (COPD on 3 to 4 L, developmental delay, diabetes, hypothyroidism, epilepsy, GERD, hypertension, schizophrenia, BPH, glaucoma, left eye vision loss)
Past Surgical History: Reports None
Social History
Tobacco: Former Smoker
Alcohol: Occasional
Drug: None
Family History
Family History: Not pertinent
Allergies / Home Medications
Allergies reflects when Allergies were last updated in [facility].
Home Medications with original date entered in [facility]
Allergy/Medication List:
Allergies
Allergy/AdvReac Type Severity Reaction Status Date / Time
No Known Allergies Allergy Verified 11/12/23 16:32
Home Medications
fexofenadine 180 mg tablet 180 mg PO DAILY Allergies 07/08/19
levothyroxine 200 mcg tablet 200 mcg PO DAILY@0600 Thyroid 07/08/19
acetaminophen 325 mg tablet (Tylenol) 650 mg PO Q4HPRN PRN mild pain 04/24/23
atorvastatin 20 mg tablet 20 mg PO DAILY High Cholesterol 04/24/23
polyethylene glycol 3350 17 gram oral powder packet (Miralax) 17 g PO DAILYPRN PRN constipation 04/25/23
cyanocobalamin (vitamin B-12) 500 mcg tablet 500 mcg PO DAILY Supplement 06/17/23
divalproex 250 mg tablet,delayed release 250 mg PO BID@08 mental health 06/17/23
divalproex 500 mg tablet,delayed release 1,000 mg PO BID@08 mental health 06/17/23
albuterol sulfate 90 mcg/actuation aerosol inhaler 2 puff inhalation R Q4HPRN PRN copd 09/13/23
ipratropium 0.5 mg-albuterol 3 mg (2.5 mg base)/3 mL nebulization soln 3 ml inhalation R BID Lung/Breathing Issues 09/27/23
sitagliptin phosphate 100 mg tablet (Januvia) 100 mg PO DAILY Diabetes 10/14/23
aluminum hydrox-magnesium carb 95 mg-358 mg/15 mL oral suspension (Acid Gone Antacid) 15 ml PO DAILYPRN PRN gerd 11/12/23
amlodipine 5 mg tablet (Norvasc) 5 mg PO DAILY Blood Pressure 11/12/23
dextromethorphan-guaifenesin 10 mg-100 mg/5 mL oral liquid (Omaira-Tussin DM) 10 ml PO Q4HPRN PRN cough 11/12/23
dextromethorphan-guaifenesin 10 mg-100 mg/5 mL oral liquid (Tussin DM) 10 ml PO Q6HPRN PRN cough 11/12/23
diltiazem HCl 120 mg capsule,extended release 24 hr 120 mg PO DAILY Diabetes 11/12/23
insulin regular human 100 unit/mL (3 mL) subcutaneous pen (Novolin R FlexPen) 1 sliding scale dose SC ACHS Diabetes 11/12/23
ipratropium 0.5 mg-albuterol 3 mg (2.5 mg base)/3 mL nebulization soln 3 ml inhalation R Q4HPRN PRN sob 11/12/23
olanzapine 15 mg tablet 30 mg PO HS Mental Health/Anxiety 11/12/23
omeprazole 20 mg capsule,delayed release 20 mg PO DAILY Gastrointestinal Issue 11/12/23
quetiapine 50 mg tablet (Seroquel) 50 mg PO HS Mental Health/Anxiety 11/12/23
tamsulosin 0.4 mg capsule (Flomax) 0.4 mg PO HS Urinary Issue 11/12/23
guaifenesin 600 mg tablet, extended release 12 hr (Mucus Relief ER) 600 mg PO [id number] PRN cough/conjestion 11/22/23
insulin glargine 100 unit/mL (3 mL) subcutaneous pen (Lantus Solostar U-100 Insulin) 25 unit SC DAILY 11/22/23
metformin 1,000 mg tablet 1,000 mg PO BID 11/22/23
Review of Systems
-
History Source: Patient
A 12 point ROS was completed and negative except as noted: Yes
Constitutional: Reports No Symptoms
EENT: Reports No Symptoms
Respiratory: Reports See HPI
Cardiac: Reports No Symptoms
Abdomen/GI: Reports No Symptoms
: Reports No Symptoms
Musculoskeletal: Reports No Symptoms
Skin: Reports No Symptoms
Neurological: Reports No Symptoms
Endocrine: Reports No Symptoms
Hematologic/Lymphatic: Reports No Symptoms
Psych: Reports No Symptoms
Physical Exam
Vital Signs
Vital Signs
Temp Pulse Resp BP Pulse Ox
100 F 105 26 153/69 94
12/14/23 10:29 12/14/23 12:00 12/14/23 12:00 12/14/23 12:00 12/14/23 12:00
Physical Exam
General: Well Developed, Well Nourished and No Apparent Distress
HEENT: NormoCephalic, Moist mucous membranes and Atraumatic
Respiratory: Rhonchi (bilateral, post lower chest , tolerating BiPAP ) and Accessory Resp Muscle Use
Cardiac: S1/S2 and Regular Rhythm; No Murmur or Rub
GI: Soft, Non Tender, Non Distended and Normal Bowel Sounds; No Organomegaly
Rectal: Deferred by Provider
Musculoskeletal: No Clubbing, No Cyanosis and No Edema
Skin: No Rash
Neuro: Nonfocal/grossly intact
Laboratory Results
-
12/14/23 10:22
12/14/23 10:22
Laboratory Results
pH Cancelled 12/14/23 10:07
pCO2 Cancelled 12/14/23 10:07
pO2 Cancelled 12/14/23 10:07
HCO3 Cancelled 12/14/23 10:07
Total Bilirubin 0.5 mg/dl (0.2-1.3) 12/14/23 10:22
AST 18 U/L (17-59) 12/14/23 10:22
ALT 15 U/L (0-50) 12/14/23 10:22
Alkaline Phosphatase 64 U/L (38-126) 12/14/23 10:22
Troponin I 0.017 ng/ml 12/14/23 10:22
Data Reviewed
-
Diagnostic Radiology: Report Reviewed by me
Lab Data: Labs Reviewed by me
Impression/Plan
-
Vital Signs
Temp Pulse Resp BP Pulse Ox
100 F 105 26 153/69 94
12/14/23 10:29 12/14/23 12:00 12/14/23 12:00 12/14/23 12:00 12/14/23 12:00
Laboratory Tests
11/24/23 12/14/23 12/14/23
07:55 10:22 11:10
WBC 5.6 4.0 L
Hgb 10.8 L 11.2 L
MCV 102.9 H
VBG pH 7.32
VBG pCO2 84 H*
VBG pO2 202 H
VBG HCO3 43.3 H
Chloride 92 L
Carbon Dioxide 40 H
Creatinine 0.6 L
eGFR > 60.00
Glucose 182 H
Troponin I 0.017
[id number] Pept 208
SARS-CoV-2 Antigen Negative
CXR: No evidence for new parenchymal opacity. Cardiac silhouette and vascular markings appear within normal limits.
Last hospitalist admission:
Date of Admission: 11/22/23
Date of Discharge: 11/24/23
Principal Discharge diagnosis :
Right upper lobe pneumonia - possible aspiration
Acute on chronic hypoxic respiratory failure
Chronic obstructive pulmonary disease flareup
ASSESSMENT & PLAN
Suspect COPD flare
Acute resp distress
Acute hypoxic hypercapnic RF being supported on BiPAP
Compensated acute resp acidosis
Underlying chronic alkalosis suggestive of chronic hypercapnic RI
HX Home O2 3-4 L dependent COPD
Former smoker
Low grade fever. NEG CXR. NEG Covid
- check PCT in AM
- Empiric IV Zosyn in case early presentation of asp PNA
- cont C[employer]IST[employer] PO Z max
- s/p IV steroids and Nebs @ ER
- cont IV Decadron
- cont Nebs q6H and PRN
- cont. BiPAP with O2 support
- Repeat ABG with any AMS
- Pul consult
Essential hypertension
-Continue diltiazem
-Continue motor pain
Type 2 diabetes
-Continue Lantus
-Insulin sliding scale
-Continue metformin
-Continue Januvia
Hypothyroidism
-Continue levothyroxine
Epilepsy
-Continue Depakote
Schizophrenia
-Continue Seroquel, olanzapine
History of developmental delay
GERD
-Continue omeprazole
BPH
-Continue tamsulosin
Left eye vision loss
Chronic anemia
-Hemoglobin stable
DVT Px: LMWH
Code: Full
IMU
[2023-12-14 12:13] LABS: B.E. 16.7 mmol/L; O2 Saturation % 97.4 % (94-98); PO2 82 mmHg (83-108); pH 7.31 (7.35-7.45)
[2023-12-14 12:18] LABS: HCO3 46.8 mmol/L (21-28); PCO2 93 mmHg (35-48)
[2023-12-14 12:26] LABS: Lactic Acid 0.5 mmol/L (0.7-2.0)
--- NOTE | 2023-12-14 14:51 | CON.PUL ---
Consultation
Consultation Request
Date/Time Consultation Requested: 12/14/23
Date/Time Consultation Performed: 12/14/23
Performing Provider: Meg
Reason for Consultation: resp failure
Medical History
-
History of Present Illness:
Patient is a 63-year-old male with previous history of developmental delay, COPD, schizophrenia, diabetes presents to ER from shelter for evaluation of shortness of breath and hypoxemia. Was notably in the 80s pulse ox despite 4L O2 use.
EMS called, placed on 15L NRB. He had previously been evaluated in ER for similar complaints. CXR on arrival unchanged from prior. ABG obtained indicating acute on chronic hypercarbic respiratory failure, placed on BiPAP. Admitted to IMU.
Of note, patient has been admitted for similar presentation. Discharge dates as follows -- 11/24/23, 11/14/23, 10/16/23, 10/02/23, 07/19/23, 06/20/23, 05/04/23
He is currently lethargic and does not give additional history/ROS.
Past Medical History
Past Medical History: Other (see list below)
Family History
Family History: Reviewed & Not Pertinent
Allergies / Home Medications
Allergies
Allergy/AdvReac Type Severity Reaction Status Date / Time
No Known Allergies Allergy Verified 11/12/23 16:32
Home Medications
�Medication �Instructions �Recorded �Confirmed �Last Taken �Type
fexofenadine 180 mg tablet 180 mg PO DAILY Allergies 07/08/19 12/14/23 12/13/23 History
levothyroxine 200 mcg tablet 200 mcg PO DAILY@0600 Thyroid 07/08/19 12/14/23 12/14/23 History
acetaminophen 325 mg tablet 650 mg PO Q4HPRN PRN mild pain 04/24/23 12/14/23 12/07/23 History
(Tylenol)
atorvastatin 20 mg tablet 20 mg PO DAILY High Cholesterol 04/24/23 12/14/23 12/13/23 History
polyethylene glycol 3350 17 gram 17 g PO DAILYPRN PRN constipation 04/25/23 12/14/23 Unknown History
oral powder packet (Miralax)
cyanocobalamin (vitamin B-12) 500 500 mcg PO DAILY Supplement 06/17/23 12/14/23 12/13/23 History
mcg tablet
divalproex 250 mg tablet,delayed 250 mg PO BID@08 mental 06/17/23 12/14/23 12/13/23 History
release health
divalproex 500 mg tablet,delayed 1,000 mg PO BID@08,1999 mental 06/17/23 12/14/23 12/13/23 History
release health
albuterol sulfate 90 mcg/actuation 2 puff inhalation R Q4HPRN PRN copd 09/13/23 12/14/23 12/14/23 History
aerosol inhaler
ipratropium 0.5 mg-albuterol 3 mg 3 ml inhalation R BID 09/27/23 12/14/23 12/14/23 History
(2.5 mg base)/3 mL nebulization Lung/Breathing Issues
soln
sitagliptin phosphate 100 mg 100 mg PO DAILY Diabetes 10/14/23 12/14/23 12/13/23 History
tablet (Januvia)
aluminum hydrox-magnesium carb 95 15 ml PO DAILYPRN PRN gerd 11/12/23 12/14/23 12/08/23 History
mg-358 mg/15 mL oral suspension
(Acid Gone Antacid)
amlodipine 5 mg tablet (Norvasc) 5 mg PO DAILY Blood Pressure 11/12/23 12/14/23 12/13/23 History
dextromethorphan-guaifenesin 10 10 ml PO Q4HPRN PRN cough 11/12/23 12/14/23 12/13/23 History
mg-100 mg/5 mL oral liquid
(Omaira-Tussin DM)
dextromethorphan-guaifenesin 10 10 ml PO Q6HPRN PRN cough 11/12/23 12/14/23 12/04/23 History
mg-100 mg/5 mL oral liquid (Tussin
DM)
diltiazem HCl 120 mg 120 mg PO DAILY Diabetes 11/12/23 12/14/23 12/13/23 History
capsule,extended release 24 hr
insulin regular human 100 unit/mL 1 sliding scale dose SC ACHS 11/12/23 12/14/23 12/13/23 History
(3 mL) subcutaneous pen (Novolin R Diabetes
FlexPen)
ipratropium 0.5 mg-albuterol 3 mg 3 ml inhalation R Q4HPRN PRN sob 11/12/23 12/14/23 12/13/23 History
(2.5 mg base)/3 mL nebulization
soln
olanzapine 15 mg tablet 30 mg PO HS Mental Health/Anxiety 11/12/23 12/14/23 12/13/23 History
omeprazole 20 mg capsule,delayed 20 mg PO DAILY Gastrointestinal 11/12/23 12/14/23 12/13/23 History
release Issue
quetiapine 50 mg tablet (Seroquel) 50 mg PO HS Mental Health/Anxiety 11/12/23 12/14/23 12/13/23 History
tamsulosin 0.4 mg capsule (Flomax) 0.4 mg PO HS Urinary Issue 11/12/23 12/14/23 12/13/23 History
guaifenesin 600 mg tablet, 600 mg PO [id number] PRN 11/22/23 12/14/23 12/13/23 History
extended release 12 hr (Mucus cough/conjestion
Relief ER)
insulin glargine 100 unit/mL (3 18 unit SC DAILY Diabetes 11/22/23 12/14/23 12/13/23 History
mL) subcutaneous pen (Lantus
Solostar U-100 Insulin)
metformin 1,000 mg tablet 1,000 mg PO BID Diabetes 11/22/23 12/14/23 12/13/23 History
azithromycin 250 mg tablet 250 mg PO MOWEFR@0800 12/14/23 12/14/23 12/13/23 History
famotidine 20 mg tablet (Pepcid) 20 mg PO DAILY 12/14/23 12/14/23 12/13/23 History
starch (thickening) (Thick-It oral 1 ea PO DAILY 12/14/23 12/14/23 12/13/23 History
powder)
Review of Systems
-
History Source: Patient
All other systems: Negative unless noted
Vitals / Labs / Diagnostic Testing
Vital Signs
Temp Pulse Resp BP Pulse Ox
100 F 102 23 139/64 91
12/14/23 10:29 12/14/23 13:45 12/14/23 13:45 12/14/23 13:30 12/14/23 13:45
Lab Data
12/14/23 10:22
12/14/23 10:22
Laboratory Results
12/14/23 12/14/23
10:07 11:59
pH Cancelled 7.31 L
pCO2 Cancelled 93 H*
pO2 Cancelled 82 L
HCO3 Cancelled 46.8 H*
O2 Delivery Level Cancelled
Microbiology
12/14/23 10:22 Nasal Swab Influenza Types A & B (CELINA) - Final
Negative for Influenza A & B, NAAT
Negative results must be combined with clinical observations
and patient history.
Nucleic Acid Amplification test (NAAT)performed on the
[employer] NOW platform.
Diagnostic Testing:
Physical Exam
-
HEENT: Normocephalic, Anicteric and Moist Mucous Membranes
Cardiovascular: S1/S2 and Regular Rhythm
Respiratory: Wheeze, Rales and Non-Labored Respirations
GI: Soft, Non Distended and Non Tender
Neurology: No Motor Deficits and Other (lethargic)
Skin: Warm, Dry and Good Color
General: Comfortable and Other (NAD, on BIPAP)
Assessment
-
Patient is a 63-year-old male with previous history of developmental delay, COPD, schizophrenia, diabetes presents to ER from shelter for evaluation of shortness of breath and hypoxemia. Was notably in the 80s pulse ox despite 4L O2 use.
EMS called, placed on 15L NRB. He had previously been evaluated in ER for similar complaints. CXR on arrival unchanged from prior. ABG obtained indicating acute on chronic hypercarbic respiratory failure, placed on BiPAP. He is currently
lethargic and does not give additional history/ROS. Admitted to IMU.
Acute on chronic hypoxic/hypercapnic respiratory failure, recurrent
Acute on chronic SOB
Possible aspiration
Conditions present prior to admission:
COPD on home 2 L/moderate-severe
Follows with Dr. Addison: On DuoNeb/Pulmicort nebulizer-unable to perform inhaler maneuver.
Obstructive sleep apnea/obesity hypoventilation syndrome: Intolerant to CPAP
AB./64. History of chronic hypercapnic respiratory failure
Chronic hypoxic hypercarbic RF
Recurrent suspected aspiration pneumonia
Speech evaluation 09/28/2023: Mild oropharyngeal dysphagia on video barium swallow 06/07/2023
Suspect noncompliance with diet at [place]
L basilar infiltrate on CXR and CT June 2023, adm , negative PCT, received ceftriaxone and azithromycin for 2 d and atbs were d/c
Mild
GERD
Hypothyroidism
HTN
Schizophrenia
Anemia
Nephrolithiasis
BPH
Polydipsia
Sz
T2DM
Legally blind
Glaucoma
COVID
Cholecystectomy
Former Smoker
NHR
Disabled
Plan
At this time, patient is on BIPAP and somewhat lethargic
ABG reviewed, showing acute on chronic retention, CO2 baseline is worsening
Continue BIPAP
Acute on chronic hypoxemia, unclear cause
Has been on 2L at baseline, placed on 4L but remained hypoxemic
Aspiration has been an issue in past
CXR remains unchanged largely compared to prior
Of note, patient has been admitted for similar presentation. Discharge dates as follows -- 11/24/23, 11/14/23, 10/16/23, 10/02/23, 07/19/23, 06/20/23, 05/04/23
Overall QoL poor
He has baseline cognitive impairment, resides [place]
Prior history of lung disease: COPD
Has chronic CO2 retention, has refused PAP, does not use as OP
Supplemental O2 as indicated to maintain sats > 89%
He has history of recurrent aspiration/frequent admissions
Speech therapy eval, known to their service/prior VSE reviewed
Placed on empiric abx on admission
This can likely be stopped
ProBNP negative
ECHO in past stable
GOC discussions would be appropriate in this patient
He remains FC
We will follow
Diagnostic Data
CXR 12/14/23- No evidence for new parenchymal opacity. Cardiac silhouette and vascular markings appear within normal limits.
Chest X-Ray: 11/12/23- Patchy opacity in the right lung base may represent atelectasis or mild pneumonia in the appropriate clinical setting. No large pleural effusion or pneumothorax. The cardiomediastinal silhouette is stable. Chronic degenerative
changes of the spine. Mild thoracic levoscoliosis.
10/14/23- Improved findings suggesting right lower lobe pneumonia. Findings suggesting COPD.
CT Scan: CHEST 09/13/23- 1. No CTA evidence for an acute pulmonary thromboembolism.
2. Small right pleural effusion.
3. Patchy airspace opacity in the inferior right lower lobe most suspicious for mild pneumonia.
4. Mildly enlarged right hilar lymph node, nonspecific but favored to be reactive.
VSE 09/28/23- Video Swallow Study Summary: Patient presents with mild oral/pharyngeal stages of swallowing. There was deep laryngeal penetration which cleared larynx with thin liquids via cup/consecutive cup sips and upper transient penetration with
thin liquids via cup with a chin tuck.
Echo: 04/28/23- Contrast used. Hyperdynamic left ventricular systolic function. LV ejection fraction is 70-75%. Mild aortic stenosis. No prior study available for comparison.
PFT's:
Reports and relevant images were personally reviewed.
Total time spent on this consultation __76__ includes review of history, physical exam, medications, laboratory data, personal review of imaging, extensive review of outpatient records, discussion with care team and respiratory therapy.
--- NOTE | 2023-12-14 15:00 | PTCARENOTE ---
Verbal and written report received from MICHAEL Fish. Arrived to IMU on stretcher from ED. ox3 and drowsy. 16/ on Bipap, 95%. afib on monitor. admission assessment completed and pt oriented to unit. Pt resting in bed with call mullins in reach.
[2023-12-14] MEDS: GLUCOPHAGE 1000 MG PO (18:08)
[2023-12-14] MEDS: LOVENOX 40 MG SC (18:09)
[2023-12-14] MEDS: ZOSYN 50 IV (18:09)
[2023-12-14] MEDS: DECADRON 4 MG IV (18:09)
[2023-12-14] MEDS: NOVOLOG FLEXPEN-LOW RESISTANCE 2 UNITS SC (18:40)
[2023-12-14 18:47] LABS: Glucose - Point of Care 206 mg/dl (70-99)
[2023-12-14] MEDS: DEPAKOTE (12 HR RELEASE) 1000 MG PO (20:26)
[2023-12-14] MEDS: DEPAKOTE (12 HR RELEASE) 250 MG PO (20:26)
[2023-12-14 21:45] LABS: Glucose - Point of Care 294 mg/dl (70-99)
--- NOTE | 2023-12-14 21:46 | PTCARENOTE ---
Took on care for patient overnight. Received report from daytime RN. When rounding, pt was standing at the side of the bed with oxygen off asking to urinate. Pt was placed back in bed and the bed alarm was put on and educated about using the call
mullins. Upon assessment pt was disoriented and confused. Respiratory came to bedside and placed pt on BiPAP. Pt O2 sat is 92%. Pt resting and calm, call mullins is within reach.
[2023-12-14] MEDS: SEROQUEL 50 MG PO (22:49)
[2023-12-14] MEDS: FLOMAX 0.4 MG PO (22:49)
[2023-12-14] MEDS: ZYPREXA 30 MG PO (22:49)
[2023-12-15] VITALS (17 sets, daily range): BP systolic 116–141; BP diastolic 64–103; PULSE 2–103; O2SAT 97; BMI 26.9
[2023-12-15] MEDS: ZOSYN 50 IV ×2 (00:23→06:00)
[2023-12-15] MEDS: DECADRON 4 MG IV ×2 (02:34→10:17)
[2023-12-15] MEDS: SYNTHROID 200 MCG PO (06:00)
[2023-12-15 06:10] LABS: % Basophils 0.5 % (0-2); % Immature Granulocytes 2.5 % (0-0.5); % Lymphocytes 13.4 % (20.5-51.1); % Monocytes 8.9 % (1.7-9.3); % Neutrophils 74.7 % (42.2-75.2); Absolute Immature Granulocytes 0.1 10^3/uL (0-0.05); Absolute Lymphocytes 0.3 10^3/uL (1.2-3.4); Absolute Monocytes 0.2 10^3/uL (0.1-0.6); Absolute Neutrophils 1.5 10^3/uL (1.4-6.5); Hematocrit 33.6 % (39.0-52.0); Hemoglobin 10.8 g/dL (13.0-18.0); Mean Corp Hgb Conc. 32.1 g/dL (33.0-37.0); Mean Corpuscular Hgb 31.8 pg (27.0-31.0); Mean Corpuscular Volume 98.8 fL (80.0-94.0); Mean Platelet Volume 10.7 fL (7.4-10.4); Nucleated Red Blood Cells % 0 % (-); Platelet Count 124 10^3/uL (130-400); Red Cell Dist. Width 14.4 % (11.5-14.5)
[2023-12-15 06:17] LABS: Blood Urea Nitrogen 22 mg/dl (9-20); Chloride 93 mmol/L (98-107); Estimated Creatinine Clearance > 125 ml/min; Glucose 225 mg/dl (70-99); Potassium 4.7 mmol/L (3.5-5.1); Sodium 141 mmol/L (135-145); eGFR > 60.00
[2023-12-15 06:29] LABS: Carbon Dioxide 37 mmol/L (22-30); Procalcitonin < 0.05 ng/ml (0.0-0.25)
[2023-12-15] MEDS: DUONEB 3 ML INH ×4 (07:27→19:55)
--- NOTE | 2023-12-15 08:17 | VNURNOTE ---
Chart reviewed. Multiple recent hospital admissions. Patient is current with [facility]. Patient from [facility]. On home 02 there. Per [facility] ROSIE Naranjo concerned that patients' needs exceed [facility]'s capabilities. Requesting pt DC
to a higher level of care facility. [facility] notified.
--- NOTE | 2023-12-15 08:45 | W.PN.PUL3 ---
Today's Communication / Plan
-
Doing well now, off bipap/in chair
In past it was stated he has refused PAP, but he notes today that he would wear 'his nebulizer' at home (indicating BIPAP)
CM consult for BIPAP set up or evaluation to use at facility
Stop IV steroids, no taper, not in clear AECOPD
Would likely stop abx as well
PT/OT evals
Assessment
-
Patient is a 63-year-old male with previous history of developmental delay, COPD, schizophrenia, diabetes presents to ER from retirement for evaluation of shortness of breath and hypoxemia. Was notably in the 80s pulse ox despite 4L O2 use.
EMS called, placed on 15L NRB. He had previously been evaluated in ER for similar complaints. CXR on arrival unchanged from prior. ABG obtained indicating acute on chronic hypercarbic respiratory failure, placed on BiPAP. He is currently
lethargic and does not give additional history/ROS. Admitted to IMU.
Acute on chronic hypoxic/hypercapnic respiratory failure, recurrent
Acute on chronic SOB
Possible aspiration
Conditions present prior to admission:
COPD on home 2 L/moderate-severe
Follows with Dr. Addison: On DuoNeb/Pulmicort nebulizer-unable to perform inhaler maneuver.
Obstructive sleep apnea/obesity hypoventilation syndrome: Intolerant to CPAP
AB.32/70/64. History of chronic hypercapnic respiratory failure
Chronic hypoxic hypercarbic RF
Recurrent suspected aspiration pneumonia
Speech evaluation 09/28/2023: Mild oropharyngeal dysphagia on video barium swallow 06/07/2023
Suspect noncompliance with diet at [place]
L basilar infiltrate on CXR and CT June 2023, adm , negative PCT, received ceftriaxone and azithromycin for 2 d and atbs were d/c
Mild
GERD
Hypothyroidism
HTN
Schizophrenia
Anemia
Nephrolithiasis
BPH
Polydipsia
Sz
T2DM
Legally blind
Glaucoma
COVID
Cholecystectomy
Former Smoker
NHR
Disabled
Plan
At this time, patient is on BIPAP and somewhat lethargic
ABG reviewed, showing acute on chronic retention, CO2 baseline is worsening
Continue BIPAP
Acute on chronic hypoxemia, unclear cause
Has been on 2L at baseline, placed on 4L but remained hypoxemic
Aspiration has been an issue in past
CXR remains unchanged largely compared to prior
Of note, patient has been admitted for similar presentation. Discharge dates as follows -- 11/24/23, 11/14/23, 10/16/23, 10/02/23, 07/19/23, 06/20/23, 05/04/23
Overall QoL poor
He has baseline cognitive impairment, resides in [place]
Prior history of lung disease: COPD
Has chronic CO2 retention, has refused PAP, does not use as OP--he states he would use it
Supplemental O2 as indicated to maintain sats > 89%
Not clear this is an AECOPD, can stop IV steroids, not wheezing on exam
He has history of recurrent aspiration/frequent admissions
Speech therapy eval, known to their service/prior VSE reviewed
Placed on empiric abx on admission
This can likely be stopped
ProBNP negative
ECHO in past stable
GOC discussions would be appropriate in this patient
He remains FC
Diagnostic Data
CXR 12/14/23- No evidence for new parenchymal opacity. Cardiac silhouette and vascular markings appear within normal limits.
Chest X-Ray: 11/12/23- Patchy opacity in the right lung base may represent atelectasis or mild pneumonia in the appropriate clinical setting. No large pleural effusion or pneumothorax. The cardiomediastinal silhouette is stable. Chronic degenerative
changes of the spine. Mild thoracic levoscoliosis.
10/14/23- Improved findings suggesting right lower lobe pneumonia. Findings suggesting COPD.
CT Scan: CHEST 09/13/23- 1. No CTA evidence for an acute pulmonary thromboembolism.
2. Small right pleural effusion.
3. Patchy airspace opacity in the inferior right lower lobe most suspicious for mild pneumonia.
4. Mildly enlarged right hilar lymph node, nonspecific but favored to be reactive.
VSE 09/28/23- Video Swallow Study Summary: Patient presents with mild oral/pharyngeal stages of swallowing. There was deep laryngeal penetration which cleared larynx with thin liquids via cup/consecutive cup sips and upper transient penetration with
thin liquids via cup with a chin tuck.
Echo: 04/28/23- Contrast used. Hyperdynamic left ventricular systolic function. LV ejection fraction is 70-75%. Mild aortic stenosis. No prior study available for comparison.
PFT's:
Reports and relevant images were personally reviewed.
Total time spent on this encounter __51__ includes review of history, physical exam, medications, laboratory data, personal review of imaging, extensive review of outpatient records, discussion with care team and respiratory therapy.
Subjective Data
-
Date of Service:
Date of Service: December 15, 2023
Chief Complaint: Pulmonary Follow Up
Subjective:
better today, more conversant
sitting in chair, off bipap
Objective Data
Data Reviewed
Vital Signs / I&O / Oxygen:
Vital Signs
Temp Pulse Resp BP Pulse Ox
97.5 F 104 18 137/81 95
12/15/23 07:00 12/15/23 07:27 12/15/23 07:27 12/15/23 06:00 12/15/23 07:27
Intake and Output
12/14/23 12/15/23 12/16/23
06:59 06:59 06:59
Intake Total 960 / 960
Output Total 1150 / 1150 125 / 125
Balance -190 / -190 -125 / -125
SaO2 95
Physical Exam
General: Comfortable and Other (nad)
HEENT: Normocephalic, Anicteric, Moist Mucous Membranes and Other (ocular palsy noted)
Cardiovascular: S1-S2 and Regular Rhythm
Respiratory: Crackles and Non-Labored Respirations
GI: Soft, Non Distended and Non Tender
Neurology: Awake, Alert, No Motor Deficits and Other (confused at baseline/cognitive impairment)
Skin: Warm and Dry
Labs/Micro/Reports
Lab Data
12/15/23 05:48
12/15/23 05:48
Laboratory Results
12/14/23 12/14/23
10:07 11:59
pH Cancelled 7.31 L
pCO2 Cancelled 93 H*
pO2 Cancelled 82 L
HCO3 Cancelled 46.8 H*
O2 Delivery Level Cancelled
Microbiology
12/14/23 10:22 Nasal Swab Influenza Types A & B (CELINA) - Final
Negative for Influenza A & B, NAAT
Negative results must be combined with clinical observations
and patient history.
Nucleic Acid Amplification test (NAAT)performed on the
[employer] platform.
[2023-12-15] MEDS: NOVOLOG FLEXPEN-LOW RESISTANCE 5 UNITS SC (09:04)
[2023-12-15] MEDS: LANTUS 0.18 UNITS SC (09:06)
[2023-12-15] MEDS: DEPAKOTE (12 HR RELEASE) 250 MG PO ×2 (09:07→19:37)
[2023-12-15] MEDS: CARDIZEM CD 120 MG PO (09:07)
[2023-12-15] MEDS: PROTONIX 40 MG PO (09:07)
[2023-12-15] MEDS: PEPCID 20 MG PO (09:07)
[2023-12-15] MEDS: NORVASC 5 MG PO (09:07)
[2023-12-15] MEDS: DEPAKOTE (12 HR RELEASE) 1000 MG PO ×2 (09:07→19:37)
[2023-12-15] MEDS: ZITHROMAX 250 MG PO (09:07)
[2023-12-15] MEDS: GLUCOPHAGE 1000 MG PO ×2 (09:07→16:56)
[2023-12-15] MEDS: LIPITOR 20 MG PO (09:08)
[2023-12-15] MEDS: JANUVIA 100 MG PO (09:08)
[2023-12-15] MEDS: VITAMIN B-12 500 MCG PO (09:08)
[2023-12-15 09:13] LABS: Glucose - Point of Care 355 mg/dl (70-99)
--- NOTE | 2023-12-15 09:48 | PN.DE.MGMTRT ---
Insulin Management
- -
12/15/2023: Diabetes management Consult
63 year old male admitted with Hypoxia due to COPD exacerbation, from [facility] where he resides. Pt was treated with IV steroids with subsequent Hyperglycemia. PMH: Developmental delay, Schizophrenia, HTN, hypothyroid, COPD on 3 to 4 L,
epilepsy, GERD, BPH, glaucoma, left eye vision loss and T2DM. Prior to admission his diabetes regimen included Lantus 18 units, Januvia 100 mg daily and Metformin 1000 mg BID with sliding scale Novolin R. Recent A1C 7.3% on , Cr 0.5, eGFR >60.
Pt states that Denise at the group monitors his blood sugars and gives him his insulin.
Patient is awake, alert and oriented to self with some confusion, sitting up on bed, pleasant and able to discuss diabetes mgt.
He remains on steroids, Dexa 4mg Q8hrs contributing to Hyperglycemia. Glucose has trended up to 355 this AM. HS glucose was 294 and FBG 225 this AM.
Will start AC NovoLog 8 units and resume OP regimen.
Pt received Lantus 18 units this AM, will give an additional 4 units for a total dose of 22 units given he is on steroids
Will increase Lantus dose to 22 units daily in AM.
Cont Metformin 1000mg BID. HOLD JANUVIA for now, will resume when steroids have been weaned off.
Will closely monitor and make necessary adjustments .
Diabetes plan of care discussed with Nurse and pt.
Diabetes History
- -
Type of Diabetes: 2 requiring insulin
Pre-Admission Diabetes Regimen
12/14/23 12/15/23
10:22 05:48
Creatinine 0.6 L 0.6 L
Insulin Pump Settings
IP Diabetes Regimen
12/14/23 12/14/23 12/14/23
10:22 18:35 21:34
Glucose 182 H
POC Glucose 206 H 294 H
12/15/23 12/15/23
05:48 09:02
Glucose 225 H
POC Glucose 355 H
Meal type: Breakfast
Amount consumed: 100%
Patient Education
[2023-12-15] MEDS: LANTUS 0.04 UNITS SC (10:17)
[2023-12-15] MEDS: NOVOLOG FLEXPEN 8 UNITS SC ×3 (10:18→17:30)
--- NOTE | 2023-12-15 10:45 | PTCARENOTE ---
Assumed care of patient at beginning of this shift from previous RN with bipap in use. Patient pulled bipap down requesting to come off; place on 10L midflow as previously in use. Currently weaned to 6L midflow with POx 96%. Patient worked with
PT/OT and sitting in chair; chair alarm activated for patient safety.
--- NOTE | 2023-12-15 10:57 | CM ---
Addendum entered by Prema Kern RN 12/15/23 14:48:
JESSICA received call from Pilar Ohara at [facility] and she stated that she spoke with patient's sister. Sister is now agreeable to STR. CM [facility] with plan for [facility].
Addendum entered by Prema Kern RN 12/15/23 11:49:
JESSICA spoke with patient's sister Laila. Cm discussed SNF placement. Laila stated that she 'adamantly' is refusing SNF placement. CM discussed the options of STR with plan to return to [facility]. Sister stated that she feels any changes in patient's
living environment will cause patient to become depressed and she feels it will hasten his ' decline'.
CM offered Palliative Care. Patient's sister is agreeable to outpatient consult. CM updated [facility] with plan. CM placed outpatient palliative care consult.
Addendum entered by Prema Kern RN 12/15/23 11:26:
JESSICA left message for Pilar Ohara, Site Safety Manager at [facility].
Original Note:
JESSICA spoke with EDIN Miller from [facility]. She expressed that there have been several concerns regarding patient's care at [facility]. Patient has presented to [facility] multiple times over the recent past. As per Angela, there have been meetings
with [facility] regarding SNF placement. [facility], as per Angela, stated that this is patient's home and they are able to provide patient with appropriate care. Angela did mention that patient may be aspirating and is currently working with
speech therapy.
JESSICA spoke with CANDIDO Wolf at [facility]. SHe stated that she feels that patient would benefit from STR stay with plan to return to [facility].
JESSICA spoke with Minda, [employer], .
[2023-12-15 11:39] LABS: Glucose - Point of Care 251 mg/dl (70-99)
[2023-12-15] MEDS: NOVOLOG FLEXPEN-LOW RESISTANCE 3 UNITS SC (12:46)
--- NOTE | 2023-12-15 13:32 | PTCARENOTE ---
Francia added for patient safety.
--- NOTE | 2023-12-15 15:40 | PTCARENOTE ---
Patient assisted OOB to commode for bm. When assisting back to bed patient's POx dropped to 85%; recovered to 95% without needing to place oxygen. He did require this nurse to suction, but did not need to do deep suctioning. Patient had large,
thick, dark liquid bm; heme positive. Patient stated he also voided small amount in commode. Dr Gooden made aware; ok to proceed with discharge.
--- NOTE | 2023-12-15 15:44 | W.PN.HOSP.TC ---
Today's Communication/Plan
-
follow pulm recs
dc steroids. I do agree this is unlikely a copd exacterbation as he is not bronchospam
will trial lasix
will chekc 2d echo
can downgrade to tele
Assessment / Plan
Assessment / Plan
NAD, in bedside chair, 5l nc on breathing treatment
Scleral anicteric
Moist mucous membranes
No JVD
Diminished breath sounds, some crackles
Normal S1-S2 no murmurs
Soft nontender nondistended bowel sounds active
No peripheral pitting edema
Moves extremities spontaneously
AAO
Acute on chronic hypoxic respiratory failure, unclear as to etiology, ?hf vs phTN vs copd. Unlikely pna as no symptoms and procal neg.
-Procal negative. DC Zosyn
-IV Steroids, per pulm stop steroids
-IV lasix x1dose, trial
-Wean o2 to home 3-4L
-Goal Spo2 >88%
-Pulm to see
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
-IV steroids
-Azithro MWF - [place]orn[place]
-Duonebs
-ICS/LAMA/LABA on DC
-Outpt Pulm follow up for repeat PFT's
Peripheral edema
-Trial IV Lasix
-Check 2d echo
-BNP 208
Diabetes with uncontrolled hyperglycemia augmented by steroids
-Long and short acting insulin
-SSI
-Accuchecks
-BG 140-180
-Metformin
-CCDiet
Hypothyroid
-Continue levothyroxine
GERD
-Continue PPI
BPH
-Continue Flomax
Schizophrenia
-Continue seroquel and olanzapine
Anticipated Discharge: 24 - 48 hours
Subjective/Interval History
-
Date of Service: December 15, 2023
Seen and examined. No new complaints. No acute overnight events.
On 5 L nasal cannula.
Improved breathing
BNP 208
2D echo ordered bilateral lower extremity edema with 2+ pitting Pro-Edison negative. DC Zosyn. COVID-negative.
Hyperglycemic related to steroids.
Objective Data
-
Labs:
Laboratory Results
12/15/23
05:48
WBC 2.0 L*
Hgb 10.8 L
Hct 33.6 L
Plt Count 124 L
Sodium 141
Potassium 4.7
Chloride 93 L
Carbon Dioxide 37 H
BUN 22 H
Creatinine 0.6 L
Glucose 225 H
Calcium 9.0
Vital Signs:
Vital Signs
Temp Pulse Resp BP Pulse Ox
99.0 F 89 18 134/90 96
12/15/23 15:00 12/15/23 15:29 12/15/23 15:29 12/15/23 10:00 12/15/23 15:29
I&O
12/14/23 12/15/23 12/16/23
06:59 06:59 06:59
Intake Total 960 / 960 360 / 360
Output Total 1150 / 1150 500 / 500
Balance -190 / -190 -140 / -140
[2023-12-15] MEDS: NOVOLOG FLEXPEN-LOW RESISTANCE SC (16:55)
[2023-12-15] MEDS: LASIX 40 MG IV (16:56)
[2023-12-15] MEDS: LOVENOX 40 MG SC (17:00)
[2023-12-15 17:06] LABS: Glucose - Point of Care 145 mg/dl (70-99)
--- NOTE | 2023-12-15 20:56 | PTCARENOTE ---
Received pt from michele RN. Pt is AAOx2 (time), forgetful. NSR on the monitor. On 4L midflow O2 sat 92%, lungs diminished/coarse. BSCx1/urinal. Medsitter in place. Chair/bed alarm in place. Pt is sitting in the chair with call mullins in reach.
[2023-12-15 21:42] LABS: Glucose - Point of Care 124 mg/dl (70-99)
[2023-12-15] MEDS: SEROQUEL 50 MG PO (21:48)
[2023-12-15] MEDS: FLOMAX 0.4 MG PO (21:48)
[2023-12-15] MEDS: ZYPREXA 30 MG PO (21:48)
[2023-12-16] VITALS (13 sets, daily range): BP systolic 98–154; BP diastolic 64–118; PULSE 2–100; BMI 26.3
[2023-12-16] MEDS: SYNTHROID 200 MCG PO (04:34)
[2023-12-16 04:52] LABS: Hematocrit 30.2 % (39.0-52.0); Mean Corp Hgb Conc. 33.1 g/dL (33.0-37.0); Mean Corpuscular Hgb 31.4 pg (27.0-31.0); Mean Platelet Volume 10.8 fL (7.4-10.4); Platelet Count 147 10^3/uL (130-400); Red Blood Cell Count 3.18 10^6/uL (4.70-6.10); Red Cell Dist. Width 14.5 % (11.5-14.5); White Blood Cell Count 4.8 10^3/uL (4.8-10.8)
[2023-12-16 05:14] LABS: Blood Urea Nitrogen 23 mg/dl (9-20); Chloride 87 mmol/L (98-107); Estimated Creatinine Clearance > 125 ml/min; Glucose 80 mg/dl (70-99); Potassium 4.3 mmol/L (3.5-5.1); Sodium 136 mmol/L (135-145); eGFR > 60.00
[2023-12-16 05:25] LABS: Carbon Dioxide 35 mmol/L (22-30)
[2023-12-16 07:27] LABS: Glucose - Point of Care 86 mg/dl (70-99)
[2023-12-16] MEDS: DUONEB 3 ML INH ×3 (07:37→14:43)
[2023-12-16] MEDS: NOVOLOG FLEXPEN 8 UNITS SC ×2 (08:51→12:17)
[2023-12-16] MEDS: NOVOLOG FLEXPEN-LOW RESISTANCE SC ×3 (08:52→16:37)
[2023-12-16] MEDS: NORVASC 5 MG PO (08:53)
[2023-12-16] MEDS: CARDIZEM CD 120 MG PO (08:53)
[2023-12-16] MEDS: PEPCID 20 MG PO (08:54)
[2023-12-16] MEDS: DEPAKOTE (12 HR RELEASE) 250 MG PO ×2 (08:54→20:59)
[2023-12-16] MEDS: LANTUS 0.22 UNITS SC (08:54)
[2023-12-16] MEDS: DEPAKOTE (12 HR RELEASE) 1000 MG PO ×2 (08:54→20:59)
[2023-12-16] MEDS: LIPITOR 20 MG PO (08:54)
[2023-12-16] MEDS: LASIX 40 MG IV ×2 (08:55→16:36)
[2023-12-16] MEDS: FLUSH (NSS) 1 FLUSH IV (08:56)
[2023-12-16] MEDS: VITAMIN B-12 500 MCG PO (08:57)
[2023-12-16] MEDS: PROTONIX 40 MG PO (08:58)
[2023-12-16] MEDS: GLUCOPHAGE 1000 MG PO ×2 (09:01→16:35)
--- NOTE | 2023-12-16 09:46 | W.PN.PUL3 ---
Today's Communication / Plan
-
Strongly encouraged to continue with BiPAP with sleep
CM consult for BIPAP set up or evaluation to use at facility
Cautiously diuresis - careful not to over-diurese as BNP <250
Would likely stop abx as well given procal <0.05
PT/OT eval
Trend pCO2 + pH with blood gas - check VBG in AM
Assessment
-
Patient is a 63-year-old male with previous history of developmental delay, COPD, schizophrenia, diabetes [facility] from [facility] for evaluation of shortness of breath and hypoxemia. Was notably in the 80s pulse ox despite 4L O2 use.
EMS called, placed on 15L NRB. He had previously been evaluated in ER for similar complaints. CXR on arrival unchanged from prior. ABG obtained indicating acute on chronic hypercarbic respiratory failure, placed on BiPAP. He is currently
lethargic and does not give additional history/ROS. Admitted to IMU.
Impression:
Acute on chronic hypoxic/hypercapnic respiratory failure, recurrent
Acute on chronic SOB
Possible aspiration
Conditions present prior to admission:
COPD on home 2 L/moderate-severe
Follows with Dr. Addison: On DuoNeb/Pulmicort nebulizer-unable to perform inhaler maneuver.
Obstructive sleep apnea/obesity hypoventilation syndrome: Intolerant to CPAP
AB.32/70/64. History of chronic hypercapnic respiratory failure
Chronic hypoxic hypercarbic RF
Recurrent suspected aspiration pneumonia
Speech evaluation 09/28/2023: Mild oropharyngeal dysphagia on video barium swallow 06/07/2023
Suspect noncompliance with diet at [place]
L basilar infiltrate on CXR and CT June 2023, adm , negative PCT, received ceftriaxone and azithromycin for 2 d and atbs were d/c
Mild
GERD
Hypothyroidism
HTN
Schizophrenia
Anemia
Nephrolithiasis
BPH
Polydipsia
Sz
T2DM
Legally blind
Glaucoma
COVID
Cholecystectomy
Former Smoker
NHR
Disabled
Plan
Patient has been refusing BiPAP overnight
ABG reviewed, showing acute on chronic retention, CO2 baseline has worsened with last blood gas from 12/14/2023 showing 7.31/93
Continue BIPAP and I will attempt to change pressures to 15/5 to see if this improves compliance; also we will try with nasal mask
Acute on chronic hypoxemia, unclear cause
Has been on 2L at baseline, placed on 4L but remained hypoxemic
Aspiration has been an issue in past
CXR remains unchanged largely compared to prior; no new opacities seen on last CXR from 12/14/2023
Of note, patient has been admitted for similar presentation. Discharge dates as follows -- 11/24/23, 11/14/23, 10/16/23, 10/02/23, 07/19/23, 06/20/23, 05/04/23
Overall QoL poor
He has baseline cognitive impairment, resides in [place]
Prior history of lung disease: COPD
Has chronic CO2 retention, has refused PAP, does not use as OP--he states he would use it
Supplemental O2 as indicated to maintain sats > 89%
Not clear this is an AECOPD, IV steroids stopped, not wheezing on exam
On IV diuretics with 40mg IV BID
- Monitor I/O, trend sCr and UOP
- Careful not to overdiurese
- Re-assess diuresis needs daily
ProBNP negative (208 from 12/14/2023)
ECHO in past stable
- Echo repeated on 12/15/2023 showing normal biventricular size and function without regional WMA, mild aortic stenosis with mild�moderate TR. No significant change compared to prior echo in April 2023
He has history of recurrent aspiration/frequent admissions
Speech therapy eval, known to their service/prior VSE reviewed
Placed on empiric abx on admission - currently on zithromax
This can likely be stopped, samantha as procal is <0.05 on 12/15/2023
GOC discussions would be appropriate in this patient
He remains full code
Pulmonary service to continue to follow along.
Diagnostic Data
CXR 12/14/23- No evidence for new parenchymal opacity. Cardiac silhouette and vascular markings appear within normal limits.
Chest X-Ray: 11/12/23- Patchy opacity in the right lung base may represent atelectasis or mild pneumonia in the appropriate clinical setting. No large pleural effusion or pneumothorax. The cardiomediastinal silhouette is stable. Chronic degenerative
changes of the spine. Mild thoracic levoscoliosis.
10/14/23- Improved findings suggesting right lower lobe pneumonia. Findings suggesting COPD.
CT Scan: CHEST 09/13/23- 1. No CTA evidence for an acute pulmonary thromboembolism.
2. Small right pleural effusion.
3. Patchy airspace opacity in the inferior right lower lobe most suspicious for mild pneumonia.
4. Mildly enlarged right hilar lymph node, nonspecific but favored to be reactive.
VSE 09/28/23- Video Swallow Study Summary: Patient presents with mild oral/pharyngeal stages of swallowing. There was deep laryngeal penetration which cleared larynx with thin liquids via cup/consecutive cup sips and upper transient penetration with
thin liquids via cup with a chin tuck.
Echo: 04/28/23- Contrast used. Hyperdynamic left ventricular systolic function. LV ejection fraction is 70-75%. Mild aortic stenosis. No prior study available for comparison.
Reports and relevant images were personally reviewed.
Total time spent today was 50 minutes for this encounter. Time includes reviewing laboratory test/imaging results, reviewing pertinent medical records, obtaining and reviewing medical history, performing an appropriate exam, ordering medications,
tests and procedures. Time also includes documentation of this encounter, coordinating patient care and communicating with other healthcare professionals. Total time does not include separately billed tests performed on this date of service.
Subjective Data
-
Date of Service:
Date of Service: December 16, 2023
Chief Complaint: Pulmonary Follow Up
Subjective:
Patient seen and evaluated today at bedside. Placed onto BiPAP 16/08 bled with 10 L/min last night. He does not like wearing the BiPAP and only wore briefly overnight. This morning he is awake, alert and answering questions appropriately. BP
114/70, heart rate 88 and saturating 95% on 3 L/min nasal cannula. He denies chest pain, SEGURA, nausea, fevers or chills.
Review of Systems
General: Other (Negative unless mentioned above)
Objective Data
Data Reviewed
Vital Signs / I&O / Oxygen:
Vital Signs
Temp Pulse Resp BP Pulse Ox
97.9 F 80 16 130/84 95
12/16/23 07:05 12/16/23 08:11 12/16/23 08:11 12/16/23 08:11 12/16/23 08:10
Intake and Output
12/15/23 12/16/23 12/17/23
06:59 06:59 06:59
Intake Total 960 / 960 2049 / 2049
Output Total 1150 / 1150 2220 / 2220 1100 / 1100
Balance -190 / -190 -170 / -170 -1100 / -1100
SaO2 95
Physical Exam
General: Respiratory Distress (negative), Comfortable, Good Appetite and Other (nad)
HEENT: Normocephalic, Anicteric, Moist Mucous Membranes and Other (ocular palsy noted)
Cardiovascular: S1-S2, Regular Rhythm and Peripheral Edema (+2 lower extremity edema (L >R))
Respiratory: Wheeze (negative), Crackles (In the [id number] lung shi bilaterally), Rhonchi (negative), Non-Labored Respirations and Other (Diminished breath sounds (upper lobes bilaterally))
GI: Soft, Non Distended, Non Tender and Normal Bowel Sounds
Neurology: Awake, Alert, Tremors (negative) and Other (confused at baseline/cognitive impairment)
Skin: Warm, Dry and Jaundice (negative)
Labs/Micro/Reports
Lab Data
12/16/23 04:33
12/16/23 04:33
Microbiology
12/14/23 13:43 Blood/Venous Blood Culture - Preliminary
No Growth in 24 hours- Final report to follow
12/14/23 11:51 Blood/Venous Blood Culture - Preliminary
No Growth in 24 hours- Final report to follow
12/14/23 10:22 Nasal Swab Influenza Types A & B (CELINA) - Final
Negative for Influenza A & B, NAAT
Negative results must be combined with clinical observations
and patient history.
Nucleic Acid Amplification test (NAAT)performed on the
[employer] platform.
[2023-12-16] MEDS: MIRALAX 17 GRAMS PO (10:28)
[2023-12-16 12:01] LABS: Glucose - Point of Care 92 mg/dl (70-99)
--- NOTE | 2023-12-16 14:00 | W.PN.HOSP.TC ---
Today's Communication/Plan
-
Continue IV diuresis
Wean oxygen as tolerated to home
Assessment / Plan
Assessment / Plan
NAD, in bedside chair, 5l nc on breathing treatment
Scleral anicteric
Moist mucous membranes
No JVD
Diminished breath sounds, some crackles
Normal S1-S2 no murmurs
Soft nontender nondistended bowel sounds active
2+ pitting edema in left lower extremity. No pitting edema in right lower extremity.
Moves extremities spontaneously
AAO
Acute on chronic hypoxic respiratory failure, unclear as to etiology, ?hf vs phTN vs copd. Unlikely pna as no symptoms and procal neg.
-Procal negative. DC Zosyn
-IV Steroids, per pulm stop steroids
-Continue IV Lasix twice daily
-Wean o2 to home 3-4L
-Goal Spo2 >88%
-Pulm to see
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
-IV steroids held by pulmonary
-Azithro MWF - [facility]
-Duonebs
-ICS/LAMA/LABA on DC
-Outpt Pulm follow up for repeat PFT's
Peripheral edema�pitting
-Worse on the left side will check Doppler study to rule out
-Trial IV Lasix
-2d echo, EF 65 to 70%, no wall motion abnormalities
-BNP 208
Diabetes with uncontrolled hyperglycemia augmented by steroids
-Long and short acting insulin
-SSI
-Accuchecks
-BG 140-180
-Metformin
-CCDiet
Hypothyroid
-Continue levothyroxine
GERD
-Continue PPI
BPH
-Continue Flomax
Schizophrenia
-Continue seroquel and olanzapine
Anticipated Discharge: 24 - 48 hours
Subjective/Interval History
-
Date of Service: December 16, 2023
Seen and examined. No new complaints. No acute overnight events.
Holding his urine over like a beer starting about to drink from it. I asked him what is he doing with that and if he was going to drink from it. He said of course not. I was thinking that I wanted to go pee but I do not have to go pee anymore
someone to put it down.
Objective Data
-
Labs:
Laboratory Results
12/16/23
04:33
WBC 4.8
Hgb 10.0 L
Hct 30.2 L
Plt Count 147
Sodium 136
Potassium 4.3
Chloride 87 L
Carbon Dioxide 35 H
BUN 23 H
Creatinine 0.6 L
Glucose 80
Calcium 9.0
Vital Signs:
Vital Signs
Temp Pulse Resp BP Pulse Ox
97.6 F 100 25 135/80 95
12/16/23 11:10 12/16/23 12:00 12/16/23 12:00 12/16/23 12:00 12/16/23 08:45
I&O
12/15/23 12/16/23 12/17/23
06:59 06:59 06:59
Intake Total 960 / 960 2049 / 2049 805 / 805
Output Total 1150 / 1150 2220 / 2220 2720 / 2720
Balance -190 / -190 -170 / -170 -1915 / -191
[2023-12-16 16:01] LABS: Glucose - Point of Care 67 mg/dl (70-99)
--- NOTE | 2023-12-16 16:27 | PTCARENOTE ---
Patient alert and oriented, confused to time. Poor short term memory. Patient has developmental delays and lives in custodial setting. Bed alarm and chair alarm in use. Patient can be impulsive. Sp02 92%-95%on 5L o2 via mid flow. SOB on
exertion. SR on monitor with PVC's.
[2023-12-16 16:32] LABS: Glucose - Point of Care 63 mg/dl (70-99)
[2023-12-16 16:47] LABS: Glucose - Point of Care 84 mg/dl (70-99)
[2023-12-16] MEDS: NOVOLOG FLEXPEN SC (18:22)
[2023-12-16] MEDS: LOVENOX 40 MG SC (18:23)
[2023-12-16] MEDS: DUONEB INH (20:02)
[2023-12-16 20:08] LABS: Glucose - Point of Care 142 mg/dl (70-99)
[2023-12-16] MEDS: SEROQUEL 50 MG PO (21:00)
[2023-12-16] MEDS: ZYPREXA 30 MG PO (21:00)
[2023-12-16] MEDS: FLOMAX 0.4 MG PO (21:00)
[2023-12-16 21:04] LABS: Glucose - Point of Care 126 mg/dl (70-99)
[2023-12-17] VITALS (9 sets, daily range): BP systolic 98–138; BP diastolic 50–93; PULSE 2–97; O2SAT 94; BMI 25.3
--- NOTE | 2023-12-17 04:09 | PTCARENOTE ---
Patient wore HS BiPAP from 2200 to ~0230, removed mask 2x. Education provided on importance of compliance with BiPAP.
[2023-12-17 05:14] LABS: Venous Blood Gas B.E. 15.6 mmol/L (-4 to +4); Venous Blood Gas HCO3 43.6 mmol/L (22-27); Venous Blood Gas O2 Sat % 99.6 %; Venous Blood Gas pH 7.39 (7.32-7.43); Venous Blood Gas pO2 163 mmHg (30-50)
[2023-12-17 05:16] LABS: Venous Blood Gas pCO2 72 mmHg (35-48)
[2023-12-17 05:21] LABS: Hematocrit 32.8 % (39.0-52.0); Hemoglobin 10.7 g/dL (13.0-18.0); Mean Corp Hgb Conc. 32.6 g/dL (33.0-37.0); Mean Corpuscular Hgb 31.4 pg (27.0-31.0); Mean Corpuscular Volume 96.2 fL (80.0-94.0); Mean Platelet Volume 10.4 fL (7.4-10.4); Platelet Count 159 10^3/uL (130-400); Red Blood Cell Count 3.41 10^6/uL (4.70-6.10); Red Cell Dist. Width 14.8 % (11.5-14.5); White Blood Cell Count 3.9 10^3/uL (4.8-10.8)
[2023-12-17 05:46] LABS: Blood Urea Nitrogen 26 mg/dl (9-20); Calcium 9.7 mg/dl (8.4-10.2); Chloride 88 mmol/L (98-107); Estimated Creatinine Clearance 102 ml/min; Glucose 78 mg/dl (70-99); Magnesium 1.7 mg/dl (1.6-2.3); Phosphorus 4.2 mg/dl (2.5-4.5); Potassium 4.5 mmol/L (3.5-5.1); Sodium 136 mmol/L (135-145); eGFR > 60.00
[2023-12-17 05:53] LABS: NT-proBNP 115 pg/ml
[2023-12-17 05:57] LABS: Carbon Dioxide 35 mmol/L (22-30)
[2023-12-17] MEDS: SYNTHROID 200 MCG PO (06:17)
[2023-12-17 07:28] LABS: Glucose - Point of Care 77 mg/dl (70-99)
[2023-12-17] MEDS: DUONEB 3 ML INH ×3 (07:28→15:13)
[2023-12-17] MEDS: LASIX 40 MG IV ×2 (08:27→17:08)
[2023-12-17] MEDS: NOVOLOG FLEXPEN-LOW RESISTANCE SC ×3 (08:27→17:08)
[2023-12-17] MEDS: VITAMIN B-12 500 MCG PO (08:28)
[2023-12-17] MEDS: CARDIZEM CD 120 MG PO (08:28)
[2023-12-17] MEDS: DEPAKOTE (12 HR RELEASE) 250 MG PO ×2 (08:28→20:53)
[2023-12-17] MEDS: NORVASC 5 MG PO (08:28)
[2023-12-17] MEDS: PROTONIX 40 MG PO (08:29)
[2023-12-17] MEDS: PEPCID 20 MG PO (08:29)
[2023-12-17] MEDS: DEPAKOTE (12 HR RELEASE) 1000 MG PO ×2 (08:29→20:52)
[2023-12-17] MEDS: LIPITOR 20 MG PO (08:29)
[2023-12-17] MEDS: GLUCOPHAGE 1000 MG PO ×2 (08:29→17:08)
[2023-12-17] MEDS: LANTUS 0.22 UNITS SC (09:06)
--- NOTE | 2023-12-17 09:44 | W.PN.PUL3 ---
Today's Communication / Plan
-
Strongly encouraged to continue with BiPAP with sleep
Trend pCO2 + pH with blood gas
CM consult for BIPAP set up or evaluation to use at facility
Cautiously diuresis - careful not to over-diurese as BNP <250
Recheck CXR tomorrow and trend BNP --> consider stopping lasix tomorrow or changing to PO
Zithromax TIW for refractory COPD
PT/OT eval
Poor prognosis
Assessment
-
Patient is a 63-year-old male with previous history of developmental delay, COPD, schizophrenia, diabetes presents [facility] ER [facility] for evaluation of shortness of breath and hypoxemia. Was notably in the 80s pulse ox despite 4L O2 use.
EMS called, placed on 15L NRB. He had previously been evaluated in ER for similar complaints. CXR on arrival unchanged from prior. ABG obtained indicating acute on chronic hypercarbic respiratory failure, placed on BiPAP. He is currently
lethargic and does not give additional history/ROS. Admitted to IMU.
Impression:
Acute on chronic hypoxic/hypercapnic respiratory failure, recurrent
Acute on chronic SOB
Possible aspiration
Conditions present prior to admission:
COPD on home 2 L/moderate-severe
Follows with Dr. Addison: On DuoNeb/Pulmicort nebulizer-unable to perform inhaler maneuver.
Obstructive sleep apnea/obesity hypoventilation syndrome: Intolerant to CPAP
AB.32/70/64. History of chronic hypercapnic respiratory failure
Chronic hypoxic hypercarbic RF
Recurrent suspected aspiration pneumonia
Speech evaluation 09/28/2023: Mild oropharyngeal dysphagia on video barium swallow 06/07/2023
Suspect noncompliance with diet at [place]
L basilar infiltrate on CXR and CT June 2023, adm , negative PCT, received ceftriaxone and azithromycin for 2 d and atbs were d/c
Mild
GERD
Hypothyroidism
HTN
Schizophrenia
Anemia
Nephrolithiasis
BPH
Polydipsia
Sz
T2DM
Legally blind
Glaucoma
COVID
Cholecystectomy
Former Smoker
NHR
Disabled
Plan
Patient has been refusing BiPAP overnight or only partially wearing it throughout the night
ABG reviewed, showing acute on chronic retention, CO2 baseline has worsened with last blood gas from 12/14/2023 showing 7.31/93
-Blood gas checked on the morning of 12/17/2023 showing compensated hypercapnia with pH 7.39, pCO2 72
Continue BIPAP at 15/5 to see if this improves compliance as opposed to higher pressures; also we will try with nasal mask
Acute on chronic hypoxemia, unclear cause
Has been on 2L at baseline, placed on 4L but remained hypoxemic
Aspiration has been an issue in past
CXR remains unchanged largely compared to prior; no new opacities seen on last CXR from 12/14/2023
Of note, patient has been admitted for similar presentation. Discharge dates as follows -- 11/24/23, 11/14/23, 10/16/23, 10/02/23, 07/19/23, 06/20/23, 05/04/23
Overall QoL poor
He has baseline cognitive impairment, resides in [place]
Prior history of lung disease: COPD
Has chronic CO2 retention, has refused PAP, does not use as OP--he states he would use it
Supplemental O2 as indicated to maintain sats 88-95%
Not clear this is an AECOPD, IV steroids stopped, not wheezing on exam
On IV diuretics with 40mg IV BID
- Monitor I/O, trend sCr and UOP
- Careful not to overdiurese
- Re-assess diuresis needs daily
- Recheck CXR and BNP tomorrow and if CXR is stable and BNP remains <250 then would transition to PO lasix or stop altogether
ProBNP negative (208 from 12/14/2023)
ECHO in past stable
- Echo repeated on 12/15/2023 showing normal biventricular size and function without regional WMA, mild aortic stenosis with mild�moderate TR. No significant change compared to prior echo in April 2023
He has history of recurrent aspiration/frequent admissions
Speech therapy eval, known to their service/prior VSE reviewed
Placed on empiric abx on admission - currently on zithromax TIW
Procal <0.05 on 12/15/2023
GOC discussions would be appropriate in this patient
He remains full code
Pulmonary service to continue to follow along.
Diagnostic Data
CXR 12/14/23- No evidence for new parenchymal opacity. Cardiac silhouette and vascular markings appear within normal limits.
Chest X-Ray: 11/12/23- Patchy opacity in the right lung base may represent atelectasis or mild pneumonia in the appropriate clinical setting. No large pleural effusion or pneumothorax. The cardiomediastinal silhouette is stable. Chronic degenerative
changes of the spine. Mild thoracic levoscoliosis.
10/14/23- Improved findings suggesting right lower lobe pneumonia. Findings suggesting COPD.
CT Scan: CHEST 09/13/23- 1. No CTA evidence for an acute pulmonary thromboembolism.
2. Small right pleural effusion.
3. Patchy airspace opacity in the inferior right lower lobe most suspicious for mild pneumonia.
4. Mildly enlarged right hilar lymph node, nonspecific but favored to be reactive.
VSE 09/28/23- Video Swallow Study Summary: Patient presents with mild oral/pharyngeal stages of swallowing. There was deep laryngeal penetration which cleared larynx with thin liquids via cup/consecutive cup sips and upper transient penetration with
thin liquids via cup with a chin tuck.
Echo: 04/28/23- Contrast used. Hyperdynamic left ventricular systolic function. LV ejection fraction is 70-75%. Mild aortic stenosis. No prior study available for comparison.
Reports and relevant images were personally reviewed.
Total time spent today was 35 minutes for this encounter. Time includes reviewing laboratory test/imaging results, reviewing pertinent medical records, obtaining and reviewing medical history, performing an appropriate exam, ordering medications,
tests and procedures. Time also includes documentation of this encounter, coordinating patient care and communicating with other healthcare professionals. Total time does not include separately billed tests performed on this date of service.
Subjective Data
-
Date of Service:
Date of Service: December 17, 2023
Chief Complaint: Pulmonary Follow Up
Subjective:
Patient was seen and evaluated today at bedside. He is sleeping in no acute distress and easily arousable and answering questions appropriately. He wore his BiPAP overnight on 16/08 bled with 10 L/min, but according to the nurse he only wore it
from about 10:30 PM until around 2:30 AM. He is currently on 3 L/min nasal cannula, saturating 96%. Heart rate 76 and BP 99/65. He has no complaints, denying cough, SOB, fevers or chills.
Review of Systems
General: Other (Negative unless mentioned above)
Objective Data
Data Reviewed
Vital Signs / I&O / Oxygen:
Vital Signs
Temp Pulse Resp BP Pulse Ox
98.2 F 82 20 129/67 92
12/17/23 07:32 12/17/23 08:28 12/17/23 07:29 12/17/23 08:28 12/17/23 07:29
Intake and Output
12/16/23 12/17/23 12/18/23
06:59 06:59 06:59
Intake Total 2049 1765 / 1765
Output Total 0 / 2220 4520 / 4520
Balance -170 / -170 -2755 / -2755
SaO2 92
Nasal Cannula flow liters per 3
minute
Physical Exam
General: Respiratory Distress (negative), Comfortable, Good Appetite and Other (nad)
HEENT: Normocephalic, Anicteric, Moist Mucous Membranes and Other (ocular palsy noted)
Cardiovascular: S1-S2, Regular Rhythm and Peripheral Edema (+2 lower extremity edema (L >R))
Respiratory: Wheeze (negative), Crackles (In the xypwvo-fq-mpwre lung shi bilaterally), Rhonchi (negative), Non-Labored Respirations and Other (Diminished breath sounds (upper lobes bilaterally))
GI: Soft, Non Distended, Non Tender and Normal Bowel Sounds
Neurology: Awake, Alert, Tremors (negative) and Other (confused at baseline/cognitive impairment)
Skin: Warm, Dry and Jaundice (negative)
Labs/Micro/Reports
Lab Data
12/17/23 05:07
12/17/23 05:07
Microbiology
12/14/23 13:43 Blood/Venous Blood Culture - Preliminary
No Growth in 48 hours- Final report to follow
12/14/23 11:51 Blood/Venous Blood Culture - Preliminary
No Growth in 48 hours- Final report to follow
12/14/23 10:22 Nasal Swab Influenza Types A & B (CELINA) - Final
Negative for Influenza A & B, NAAT
Negative results must be combined with clinical observations
and patient history.
Nucleic Acid Amplification test (NAAT)performed on the
[employer] platform.
[2023-12-17] MEDS: NOVOLOG FLEXPEN SC ×2 (10:07→18:15)
--- NOTE | 2023-12-17 11:19 | W.PN.HOSP.TC ---
Today's Communication/Plan
-
IV diuretics
Decrease lantus and lispro dosing
Assessment / Plan
Assessment / Plan
NAD, in bedside chair, 5l nc on breathing treatment
Scleral anicteric
Moist mucous membranes
No JVD
Diminished breath sounds, some crackles
Normal S1-S2 no murmurs
Soft nontender mildly bowel sounds active
2+ pitting edema in left lower extremity. No pitting edema in right lower extremity.
Moves extremities spontaneously
AAO
Acute on chronic hypoxic respiratory failure, unclear as to etiology, ?hf vs phTN vs copd. Unlikely pna as no symptoms and procal neg.
-Procal negative. DC Zosyn
-IV Steroids, per pulm stop steroids
-Continue IV Lasix twice daily
- -Will continue diuretic. Continue to monitor urinary output renal function weights.
- -Will continue IV diuretic until we see a bump in creatinine or develops contraction
-Wean o2 to home 3-4L
-Goal Spo2 >88%
-Pulm to see
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
-IV steroids held by pulmonary
-Azithro MWF - [facility]
-Duonebs
-ICS/LAMA/LABA on DC
-Outpt Pulm follow up for repeat PFT's
Peripheral edema�pitting
-Worse on the left side will check Doppler study to rule out
-Trial IV Lasix
-2d echo, EF 65 to 70%, no wall motion abnormalities
-BNP 208
Diabetes with uncontrolled hyperglycemia. No improved infact more hypoglycemic then anything. Likely occuring as he is following diet and steroids have been off
- -Will cut dose of long and short acting insulin.
-Long and short acting insulin
-SSI
-Accuchecks
-BG 140-180
-Metformin
-CCDiet
Hypothyroid
-Continue levothyroxine
GERD
-Continue PPI
BPH
-Continue Flomax
Schizophrenia
-Continue seroquel and olanzapine
Anticipated Discharge: 24 - 48 hours
Subjective/Interval History
-
Date of Service: December 17, 2023
Seen and examined. Sitting in bedside chair just completed breakfast. Listening to classical rock on nurses computer. Has no complaints. States breathing has improved. States urinating a lot. States legs have improved.
Objective Data
-
Labs:
Laboratory Results
12/17/23
05:07
WBC 3.9 L
Hgb 10.7 L
Hct 32.8 L
Plt Count 159
Sodium 136
Potassium 4.5
Chloride 88 L
Carbon Dioxide 35 H
BUN 26 H
Creatinine 0.8
Glucose 78
Calcium 9.7
Vital Signs:
Vital Signs
Temp Pulse Resp BP Pulse Ox
98.2 F 82 20 129/67 92
12/17/23 07:32 12/17/23 08:28 12/17/23 07:29 12/17/23 08:28 12/17/23 09:45
I&O
12/16/23 12/17/23 12/18/23
06:59 06:59 06:59
Intake Total 2049 1765 / 176
Output Total 2219 4520 / 4520 400 / 400
Balance -170 / -170 -2755 / -2755 -400 / -400
[2023-12-17 11:44] LABS: Glucose - Point of Care 120 mg/dl (70-99)
--- NOTE | 2023-12-17 11:46 | PTCARENOTE ---
Recd pt this AM. OOB to chair with min assist. focused on meals, pleasant, cooperative. VS stable. continue current plan.
[2023-12-17] MEDS: NOVOLOG FLEXPEN 6 UNITS SC (12:29)
[2023-12-17 17:08] LABS: Glucose - Point of Care 83 mg/dl (70-99)
[2023-12-17] MEDS: LOVENOX 40 MG SC (17:08)
--- NOTE | 2023-12-17 20:00 | TRANSFER ---
Report given by michele RN, patient for transfer from [facility] to room 2135. Patient transferred in wheelchair with all belongings, medsitter, BiPAP and chart.
[2023-12-17] MEDS: DUONEB INH (20:15)
[2023-12-17] MEDS: ZYPREXA 30 MG PO (21:00)
[2023-12-17] MEDS: FLOMAX 0.4 MG PO (21:00)
[2023-12-17] MEDS: SEROQUEL 50 MG PO (21:00)
[2023-12-17 22:55] LABS: Glucose - Point of Care 65 mg/dl (70-99)
[2023-12-17 23:08] LABS: Glucose - Point of Care 84 mg/dl (70-99)
--- NOTE | 2023-12-17 23:21 | PTCARENOTE ---
Pt HS blood sugar 65. Pt woken up and was given 4 oz of juice. Repeat blood sugar at 2307 was 87.
[2023-12-18] VITALS (8 sets, daily range): BP systolic 119–139; BP diastolic 71–83; PULSE 2–82; O2SAT 96; BMI 24.5
[2023-12-18] MEDS: SYNTHROID 200 MCG PO (05:52)
[2023-12-18 06:50] LABS: Venous Blood Gas B.E. 16.5 mmol/L (-4 to +4); Venous Blood Gas HCO3 44.4 mmol/L (22-27); Venous Blood Gas O2 Sat % 91.2 %; Venous Blood Gas pCO2 70 mmHg (35-48); Venous Blood Gas pH 7.41 (7.32-7.43); Venous Blood Gas pO2 61 mmHg (30-50)
[2023-12-18 06:52] LABS: Hematocrit 34.9 % (39.0-52.0); Hemoglobin 11.7 g/dL (13.0-18.0); Mean Corp Hgb Conc. 33.5 g/dL (33.0-37.0); Mean Corpuscular Hgb 33.1 pg (27.0-31.0); Mean Corpuscular Volume 98.6 fL (80.0-94.0); Mean Platelet Volume 10.4 fL (7.4-10.4); Platelet Count 153 10^3/uL (130-400); Red Blood Cell Count 3.54 10^6/uL (4.70-6.10); Red Cell Dist. Width 14.3 % (11.5-14.5); White Blood Cell Count 2.9 10^3/uL (4.8-10.8)
[2023-12-18 07:13] LABS: NT-proBNP 28.6 pg/ml
[2023-12-18 07:32] LABS: Blood Urea Nitrogen 21 mg/dl (9-20); Calcium 9.3 mg/dl (8.4-10.2); Chloride 85 mmol/L (98-107); Estimated Creatinine Clearance > 125 ml/min; Glucose 65 mg/dl (70-99); Magnesium 1.6 mg/dl (1.6-2.3); Phosphorus 4.3 mg/dl (2.5-4.5); Potassium 4.3 mmol/L (3.5-5.1); Sodium 136 mmol/L (135-145); eGFR > 60.00
[2023-12-18] MEDS: DUONEB 3 ML INH ×4 (07:36→21:10)
[2023-12-18 07:53] LABS: Carbon Dioxide 37 mmol/L (22-30)
--- NOTE | 2023-12-18 08:03 | PN.DE.MGMTRT ---
Insulin Management
- -
12/18/2023: Diabetes management F/U:
63 year old male admitted with Hypoxia due to COPD exacerbation, from [facility] where he resides. Pt was treated with IV steroids with subsequent Hyperglycemia. PMH: Developmental delay, Schizophrenia, HTN, hypothyroid, COPD on 3 to 4 L,
epilepsy, GERD, BPH, glaucoma, left eye vision loss and T2DM. Prior to admission his diabetes regimen included Lantus 18 units, Januvia 100 mg daily and Metformin 1000 mg BID with sliding scale Novolin R. Recent A1C 7.3% on , Cr 0.5, eGFR >60.
Pt states that Denise at the group monitors his blood sugars and gives him his insulin.
Patient is awake, alert and oriented to self with some confusion, resting in bed, pleasant and able to discuss diabetes mgt.
Steroids discontinued on 12/15. Noted for Hypoglycemia as low as 65@ HS, Lantus reduced from 22 units to 18 units.
Will stop AC NovoLog and resume OP regimen: Metformin 1000mg BID, Januvia 100mg daily and Lantus 18 units in AM
Will closely monitor and make further adjustments .
Diabetes plan of care discussed with Nurse and pt.
Diabetes History
- -
Type of Diabetes: 2 requiring insulin
Pre-Admission Diabetes Regimen
12/18/23
06:32
Creatinine 0.6 L
Insulin Pump Settings
IP Diabetes Regimen
12/17/23 12/17/23 12/17/23
11:33 16:57 22:52
Glucose
POC Glucose 120 H 83 65 L
12/17/23 12/18/23
23:07 06:32
Glucose 65 L
POC Glucose 84
Patient Education
[2023-12-18 08:21] LABS: Glucose - Point of Care 71 mg/dl (70-99)
[2023-12-18] MEDS: NOVOLOG FLEXPEN-LOW RESISTANCE SC (08:41)
[2023-12-18] MEDS: LASIX 40 MG IV (08:42)
[2023-12-18] MEDS: PEPCID 20 MG PO (08:44)
[2023-12-18] MEDS: LIPITOR 20 MG PO (08:44)
[2023-12-18] MEDS: PROTONIX 40 MG PO (08:44)
[2023-12-18] MEDS: ZITHROMAX 250 MG PO (08:44)
[2023-12-18] MEDS: CARDIZEM CD 120 MG PO (08:44)
[2023-12-18] MEDS: NORVASC 5 MG PO (08:44)
[2023-12-18] MEDS: DEPAKOTE (12 HR RELEASE) 1000 MG PO ×2 (08:45→20:20)
[2023-12-18] MEDS: DEPAKOTE (12 HR RELEASE) 250 MG PO ×2 (08:48→20:20)
[2023-12-18] MEDS: VITAMIN B-12 500 MCG PO (08:49)
[2023-12-18] MEDS: NOVOLOG FLEXPEN SC (08:55)
--- NOTE | 2023-12-18 09:22 | W.PN.HOSP.TC ---
Addendum entered and electronically signed by Silver Slaughter DO 12/18/23 13:56:
Updated patient's sister [place] on the phone. She is interested in getting Oren to short-term rehab on discharge.
Informed case management of discharge plans.
Original Note:
Today's Communication/Plan
-
Stop diuretics
Prednisone
Speech therapy consult
Assessment / Plan
Assessment / Plan
Gen-AAOx3, NAD
HEENT-NC, AT, anicteric, clear oral mm
Neck-supple
CV-reg, no M, +S1/S2
Lungs-bilateral end-expiratory wheezing
Abd-soft, NT, ND
Ext-no edema
Musculoskeletal-no cyanosis, clubbing
Skin-warm and dry
Neuro-grossly non-focal
Psych-calm, cooperative
Acute on chronic hypoxic/hypercapnic respiratory failure -differential diagnosis includes acute COPD exacerbation versus aspiration pneumonitis versus other. Clinically doubt CHF. Can discontinue further diuretics. No evidence of pneumonia.
Oxygenation improved, currently on 2.5 L. This is his baseline.
Speech therapy consult.
Ideally needs BiPAP on discharge but anticipate that he will likely refuse. He is refusing in the hospital.
Acute COPD exacerbation -wheezing continues. Will resume steroids in the form of prednisone.
-Azithro MWF -chronic
-Duonebs
-ICS/LAMA/LABA on DC
-Outpt Pulm follow up for repeat PFT's
Peripheral edema -no DVT noted on Doppler ultrasound.
DM 2 with hyperglycemia/hypoglycemia -last HgbA1c A1c 7.3% in November. Glucose 65 this morning. Received Lantus 22 units yesterday morning. Diabetes [employer] following.
Bicytopenia -unclear etiology of leukopenia and anemia. Will need outpatient follow-up.
Hypothyroid
-Continue levothyroxine
GERD
-Continue PPI
BPH
-Continue Flomax
Schizophrenia
-Continue seroquel and olanzapine
Full code
Dispo - he is a resident of [facility].
Anticipated Discharge: Within 24 hours
Subjective/Interval History
-
Date of Service: December 18, 2023
Patient seen and examined. No complaints.
Objective Data
-
Labs:
Laboratory Results
12/18/23
06:32
WBC 2.9 L
Hgb 11.7 L
Hct 34.9 L
Plt Count 153
Sodium 136
Potassium 4.3
Chloride 85 L
Carbon Dioxide 37 H
BUN 21 H
Creatinine 0.6 L
Glucose 65 L
Calcium 9.3
Vital Signs:
Vital Signs
Temp Pulse Resp BP Pulse Ox
97.6 F 83 16 125/72 96
12/18/23 07:40 12/18/23 08:44 12/18/23 07:40 12/18/23 08:44 12/18/23 07:40
I&O
12/17/23 12/18/23 12/19/23
06:59 06:59 06:59
Intake Total 1765 / 1765 480 / 480
Output Total 4520 / 4520 1900 / 1900
Balance -2755 / -2755 -1420 / -1420
Review of Systems
-
History Source: Patient
All other systems: Reviewed and negative
[2023-12-18] MEDS: GLUCOPHAGE 1000 MG PO ×2 (09:39→17:07)
[2023-12-18] MEDS: LANTUS 0.18 UNITS SC (09:40)
[2023-12-18] MEDS: DELTASONE 40 MG PO (09:40)
--- NOTE | 2023-12-18 11:00 | W.PN.PUL3 ---
Today's Communication / Plan
-
Continue nebulizers
Restart Pulmicort
Prednisone taper
Incentive spirometry
Low-dose macrolide therapy for anti-inflammatory properties/exacerbation prevention
Continue with aspiration precautions
Status post diuresis-no longer needed
Cont. BiPAP as able HS and naps
Avoid sedatives.
Hopefully discharge planning soon
Assessment
-
Patient is a 63-year-old male with previous history of developmental delay, COPD, schizophrenia, diabetes [facility] for evaluation of shortness of breath and hypoxemia. Was notably in the 80s pulse ox despite 4L O2 use.
EMS called, placed on 15L NRB. He had previously been evaluated in ER for similar complaints. CXR on arrival unchanged from prior. ABG obtained indicating acute on chronic hypercarbic respiratory failure, placed on BiPAP. He is currently
lethargic and does not give additional history/ROS. Admitted to IMU.
Impression:
Acute on chronic hypoxic/hypercapnic respiratory failure, recurrent
Acute on chronic SOB
Possible aspiration
Conditions present prior to admission:
COPD on home 2 L/moderate-severe
Follows with Dr. Addison: On DuoNeb/Pulmicort nebulizer-unable to perform inhaler maneuver.
Obstructive sleep apnea/obesity hypoventilation syndrome: Intolerant to CPAP
AB.32/70/64. History of chronic hypercapnic respiratory failure
Chronic hypoxic hypercarbic RF
Recurrent suspected aspiration pneumonia
Speech evaluation 09/28/2023: Mild oropharyngeal dysphagia on video barium swallow 06/07/2023
Suspect noncompliance with diet at [place]
L basilar infiltrate on CXR and CT June 2023, adm , negative PCT, received ceftriaxone and azithromycin for 2 d and atbs were d/c
Mild
GERD
Hypothyroidism
HTN
Schizophrenia
Anemia
Nephrolithiasis
BPH
Polydipsia
Sz
T2DM
Legally blind
Glaucoma
COVID
Cholecystectomy
Former Smoker
NHR
Disabled
Plan:
Mental status is baseline:
Intermittently refused BiPAP-in the outpatient setting this has been offered to him but he has declined.
ABG reviewed, showing acute on chronic retention, CO2 baseline has worsened with last blood gas from 12/14/2023 showing 7.31/93
-V Blood gas checked on the morning of 12/17/2023 showing compensated hypercapnia with pH 7.39, pCO2 72
Continue BIPAP at 15/5 as able at bedtime and with naps. This has been discussed with the patient multiple times.
Acute on chronic hypoxemia. Resolved. Back to baseline.
Chest x-ray 12/18/2023: Demonstrated minimal bibasilar opacities, left greater than right, pneumonia versus subsegmental atelectasis. No significant change compared to prior.
Currently on 2 L.
Aspiration has been an issue in past-does have history of oropharyngeal dysphagia reported in the past.
Patient in general in the outpatient setting does not follow-up with modifications. He lives at their [facility]. Usually comes to the office with a visiting nurse.
Of note, patient has been admitted for similar presentation. Discharge dates as follows -- 11/24/23, 11/14/23, 10/16/23, 10/02/23, 07/19/23, 06/20/23, 05/04/23
Overall QoL poor
He has baseline cognitive impairment, resides in [place]-follow instructions regarding aspiration precautions and diet modifications. This has been an issue in the past with Dr. Addison.
Prior history of lung disease: COPD
Has chronic CO2 retention, has refused PAP, does not use as OP--he states he would use it-will attempt to arrange. Will discuss with case management to see if this is possible in his case.
Minimal expiratory wheezing bilaterally.
Able to speak in full sentences
Does not appear in distress 12/18/2023
Transitioned to prednisone, decrease by 10 mg every 48 hours to off
Continue DuoNebs
Restart Pulmicort
In the outpatient setting follows up with Dr. Addison. Unable to perform inhaler technique.
Unable to perform pulmonary function testing maneuvers
Has FEV1 of around 40%.
On DuoNebs Q8 to every 6 hours and Pulmicort twice a day. Baseline regimen.
Status post diuresis. Now discontinued.
Chest x-ray 12/18/2023 not consistent with pulmonary edema.
ProBNP negative (208 from 12/14/2023)
ECHO in past stable
- Echo repeated on 12/15/2023 showing normal biventricular size and function without regional WMA, mild aortic stenosis with mild�moderate TR. No significant change compared to prior echo in April 2023
Chronic aspiration: Oropharyngeal dysphagia.
He has history of recurrent aspiration/frequent admissions
Speech therapy eval, known to their service/prior VSE reviewed
-
continue to monitor off antibiotics. Procal <0.05 on 12/15/2023
Afebrile without leukocytosis.
GOC discussions would be appropriate in this patient-unclear if this patient fully understands severity of illness with advanced COPD and hypercapnic respiratory failure.
He remains full code
Pulmonary service to continue to follow along.

Diagnostic Data
CXR 12/14/23- No evidence for new parenchymal opacity. Cardiac silhouette and vascular markings appear within normal limits.
Chest X-Ray: 11/12/23- Patchy opacity in the right lung base may represent atelectasis or mild pneumonia in the appropriate clinical setting. No large pleural effusion or pneumothorax. The cardiomediastinal silhouette is stable. Chronic degenerative
changes of the spine. Mild thoracic levoscoliosis.
10/14/23- Improved findings suggesting right lower lobe pneumonia. Findings suggesting COPD.
CT Scan: CHEST 09/13/23- 1. No CTA evidence for an acute pulmonary thromboembolism.
2. Small right pleural effusion.
3. Patchy airspace opacity in the inferior right lower lobe most suspicious for mild pneumonia.
4. Mildly enlarged right hilar lymph node, nonspecific but favored to be reactive.
VSE 09/28/23- Video Swallow Study Summary: Patient presents with mild oral/pharyngeal stages of swallowing. There was deep laryngeal penetration which cleared larynx with thin liquids via cup/consecutive cup sips and upper transient penetration with
thin liquids via cup with a chin tuck.
Echo: 04/28/23- Contrast used. Hyperdynamic left ventricular systolic function. LV ejection fraction is 70-75%. Mild aortic stenosis. No prior study available for comparison.
Reports and relevant images were personally reviewed.
Total time spent today was 35 minutes for this encounter. Time includes reviewing laboratory test/imaging results, reviewing pertinent medical records, obtaining and reviewing medical history, performing an appropriate exam, ordering medications,
tests and procedures. Time also includes documentation of this encounter, coordinating patient care and communicating with other healthcare professionals. Total time does not include separately billed tests performed on this date of service.
Subjective Data
-
Date of Service:
Date of Service: December 18, 2023
Chief Complaint: Pulmonary Follow Up
Subjective:
He offers no new complaints
Review of Systems
Cardiopulmonary: Dyspnea and Cough
Objective Data
Data Reviewed
Vital Signs / I&O / Oxygen:
Vital Signs
Temp Pulse Resp BP Pulse Ox
97.6 F 83 16 125/72 96
12/18/23 07:40 12/18/23 08:44 12/18/23 07:40 12/18/23 08:44 12/18/23 10:28
Intake and Output
12/17/23 12/18/23 12/19/23
06:59 06:59 06:59
Intake Total 1765 / 1765 480 / 480
Output Total 4520 / 4520 1900 / 1900
Balance -2755 / -2755 -1420 / -1420
SaO2 96
Nasal Cannula flow liters per 3
minute
Physical Exam
General: Respiratory Distress (negative), Comfortable, Good Appetite and Other (nad)
HEENT: Normocephalic, Anicteric, Moist Mucous Membranes and Other (ocular palsy noted)
Cardiovascular: S1-S2, Regular Rhythm and Peripheral Edema (+2 lower extremity edema (L >R))
Respiratory: Wheeze (negative), Crackles (In the vpavoq-ce-ordmt lung shi bilaterally), Rhonchi (negative), Non-Labored Respirations and Other (Diminished breath sounds (upper lobes bilaterally))
GI: Soft, Non Distended, Non Tender and Normal Bowel Sounds
Neurology: Awake, Alert, Tremors (negative) and Other (confused at baseline/cognitive impairment)
Skin: Warm, Dry and Jaundice (negative)
Labs/Micro/Reports
Lab Data
12/18/23 06:32
12/18/23 06:32
Microbiology
12/14/23 13:43 Blood/Venous Blood Culture - Preliminary
No Growth in 72 hours- Final report to follow
12/14/23 11:51 Blood/Venous Blood Culture - Preliminary
No Growth in 72 hours- Final report to follow
--- NOTE | 2023-12-18 11:14 | CM ---
Addendum entered by Celina Gee RN 12/18/23 16:05:
CM spoke with the patient's sister [place]. Discussed short term rehab. Sister in agreement with referrals being sent to area SNFs. Referrals sent. Paperwork for [facility] started. Need MD signature and then can fax to [facility] for Level II review.
Original Note:
Reviewed the chart notes and left voice message at [facility] for call back with regards to CM consult on BiPAP.
[2023-12-18 12:16] LABS: Glucose - Point of Care 220 mg/dl (70-99)
[2023-12-18] MEDS: NOVOLOG FLEXPEN-LOW RESISTANCE 2 UNITS SC ×2 (12:28→17:08)
--- NOTE | 2023-12-18 13:57 | PTOTSP ---
Speech Therapy Assessment
Cognitive status is a risk factor for aspiration but patient tolerated majority of trials without a cough or overt signs of aspiration.
Recommend
1. Downgrade to IDDSI 6 (soft and Bite-sized) and continue thin liquds.
2. Meds one a time with liquid as tolerated. Whole in applesauce if needed.
3. Supervision to ensure appropriate amount and rate of intake.
4. Aspiration precautions.
ST will follow to enure diet tolerance and need for further modifications/testing.
[2023-12-18 17:03] LABS: Glucose - Point of Care 217 mg/dl (70-99)
[2023-12-18] MEDS: LOVENOX 40 MG SC (17:07)
[2023-12-18] MEDS: PULMICORT 0.5 MG INH (21:10)
[2023-12-18 21:41] LABS: Glucose - Point of Care 192 mg/dl (70-99)
[2023-12-18] MEDS: FLOMAX 0.4 MG PO (22:29)
[2023-12-18] MEDS: SEROQUEL 50 MG PO (22:29)
[2023-12-18] MEDS: ZYPREXA 30 MG PO (22:30)
[2023-12-19] VITALS (8 sets, daily range): BP systolic 106–137; BP diastolic 64–94; PULSE 2–80; BMI 24.4
[2023-12-19] MEDS: SYNTHROID 200 MCG PO (05:20)
[2023-12-19] MEDS: PULMICORT 0.5 MG INH ×2 (07:37→19:57)
[2023-12-19] MEDS: DUONEB 3 ML INH ×4 (07:37→19:57)
--- NOTE | 2023-12-19 07:55 | PN.DE.MGMTRT ---
Insulin Management
- -
12/19/2023: Diabetes management Follow up:
63 year old male admitted with Hypoxia due to COPD exacerbation, from [facility] where he resides. Pt was treated with IV steroids with subsequent Hyperglycemia. PMH: Developmental delay, Schizophrenia, HTN, hypothyroid, COPD on 3 to 4 L,
epilepsy, GERD, BPH, glaucoma, left eye vision loss and T2DM. Prior to admission his diabetes regimen included Lantus 18 units, Januvia 100 mg daily and Metformin 1000 mg BID with sliding scale Novolin R. Recent A1C 7.3% on 11/27, Cr 0.5, eGFR >60.
Pt states that Denise at the group monitors his blood sugars and gives him his insulin.
Patient is awake, alert and oriented to self with some confusion, resting in bed, pleasant and able to discuss diabetes mgt.
IV Steroids discontinued on 12/15, currently receiving Prednisone 40 mg daily.
12/17 fasting glucose 71, ac novolog stopped, glucose up to 220 pre lunch and dinner. Will resume ac novolog 3 units with low corrective, continue Januvia 100 mg daily with metformin 1000 mg BID. Lantus dose has been decreased to 18 units daily
will continue.
Will closely monitor and make further adjustments .
Diabetes plan of care discussed with Nurse and pt.
Diabetes History
- -
Type of Diabetes: 2 requiring insulin
Pre-Admission Diabetes Regimen
Insulin Pump Settings
IP Diabetes Regimen
12/18/23 12/18/23 12/18/23
08:20 12:14 17:02
POC Glucose 71 220 H 217 H
12/18/23
21:40
POC Glucose 192 H
Meal type: Breakfast
Amount consumed: 100%
Patient Education
[2023-12-19 08:02] LABS: Glucose - Point of Care 93 mg/dl (70-99)
[2023-12-19] MEDS: NOVOLOG FLEXPEN-LOW RESISTANCE SC (08:04)
[2023-12-19] MEDS: CARDIZEM CD 120 MG PO (08:05)
[2023-12-19] MEDS: DEPAKOTE (12 HR RELEASE) 1000 MG PO ×2 (08:05→20:10)
[2023-12-19] MEDS: VITAMIN B-12 500 MCG PO (08:05)
[2023-12-19] MEDS: NORVASC 5 MG PO (08:05)
[2023-12-19] MEDS: PROTONIX 40 MG PO (08:05)
[2023-12-19] MEDS: JANUVIA 100 MG PO (08:05)
[2023-12-19] MEDS: PEPCID 20 MG PO (08:05)
[2023-12-19] MEDS: DELTASONE 40 MG PO (08:06)
[2023-12-19] MEDS: LIPITOR 20 MG PO (08:06)
[2023-12-19] MEDS: GLUCOPHAGE 1000 MG PO ×2 (08:06→17:15)
[2023-12-19] MEDS: DEPAKOTE (12 HR RELEASE) 250 MG PO ×2 (08:06→20:11)
[2023-12-19] MEDS: NOVOLOG FLEXPEN 3 UNITS SC ×3 (08:07→17:16)
[2023-12-19] MEDS: LANTUS 0.18 UNITS SC (08:08)
--- NOTE | 2023-12-19 08:37 | W.PN.HOSP.TC ---
Today's Communication/Plan
-
Discharge planning
Assessment / Plan
Assessment / Plan
Gen-AAOx3, NAD
HEENT-NC, AT, anicteric, clear oral mm
Neck-supple
CV-reg, no M, +S1/S2
Lungs-clear bilaterally
Abd-soft, NT, ND
Ext-no edema
Musculoskeletal-no cyanosis, clubbing
Skin-warm and dry
Neuro-grossly non-focal
Psych-calm, cooperative
Acute on chronic hypoxic/hypercapnic respiratory failure -differential diagnosis includes acute COPD exacerbation versus aspiration pneumonitis versus other. Clinically doubt CHF. Can discontinue further diuretics. No evidence of pneumonia.
Oxygenation improved, currently on 3 L. This is his baseline.
Speech therapy recommends soft and bite sized diet.
Ideally needs BiPAP on discharge but anticipate that he will likely refuse. He is refusing in the hospital.
Acute COPD exacerbation -wheezing improved. Prednisone taper.
-Azithro MWF -chronic
-Duonebs
-ICS/LAMA/LABA on DC
-Outpt Pulm follow up for repeat PFT's
Peripheral edema -no DVT noted on Doppler ultrasound.
DM 2 with hyperglycemia/hypoglycemia -last HgbA1c A1c 7.3% in November. Glucose 93 this morning. Home meds resumed, Lantus 18 units daily, Januvia, metformin.
Bicytopenia -unclear etiology of leukopenia and anemia. Will need outpatient follow-up.
Hypothyroid
-Continue levothyroxine
GERD
-Continue PPI
BPH
-Continue Flomax
Schizophrenia
-Continue seroquel and olanzapine
Full code
Dispo - he is a resident of [facility]. Trying to get him to short-term rehab. Updated family on the phone yesterday. Medically stable for discharge. Case management aware.
Anticipated Discharge: Within 24 hours
Subjective/Interval History
-
Date of Service: December 19, 2023
Patient seen and examined. No complaints.
Objective Data
-
Vital Signs:
Vital Signs
Temp Pulse Resp BP Pulse Ox
98.5 F 80 18 131/94 96
12/19/23 07:40 12/19/23 08:05 12/19/23 07:43 12/19/23 08:05 12/19/23 07:43
I&O
12/18/23 12/19/23 12/20/23
06:59 06:59 06:59
Intake Total 480 / 480 1380 / 1380
Output Total 1900 / 1900 1200 / 1200
Balance -1420 / -1420 180 / 180
Review of Systems
-
History Source: Patient
All other systems: Reviewed and negative
--- NOTE | 2023-12-19 11:19 | CM ---
Reviewed the chart notes. [facility] Initial Assessment Request and [facility] faxed today. CM continues to be available to patient/family and is monitoring medical plan for needs at discharge.
Plan: Discharge to SNF/rehab once [facility] assessment completed and bed found. No precert required.
[2023-12-19] MEDS: NOVOLOG FLEXPEN-LOW RESISTANCE 1 UNITS SC (12:21)
[2023-12-19 12:22] LABS: Glucose - Point of Care 175 mg/dl (70-99)
--- NOTE | 2023-12-19 15:06 | W.PN.PUL3 ---
Today's Communication / Plan
-
Continue nebulizer therapy DuoNebs/Pulmicort
Low-dose Azithromycin for anti-inflammatory therapy
Aspiration precautions
Mucolytic's
Prednisone taper
Discharge planning
Sign off
Assessment
-
Patient is a 63-year-old male with previous history of developmental delay, COPD, schizophrenia, diabetes presents to ER from care home for evaluation of shortness of breath and hypoxemia. Was notably in the 80s pulse ox despite 4L O2 use.
EMS called, placed on 15L NRB. He had previously been evaluated in ER for similar complaints. CXR on arrival unchanged from prior. ABG obtained indicating acute on chronic hypercarbic respiratory failure, placed on BiPAP. He is currently
lethargic and does not give additional history/ROS. Admitted to IMU.
Impression:
Acute on chronic hypoxic/hypercapnic respiratory failure, recurrent
Acute on chronic SOB
Possible aspiration
Conditions present prior to admission:
COPD on home 2 L/moderate-severe
Follows with Dr. Addison: On DuoNeb/Pulmicort nebulizer-unable to perform inhaler maneuver.
Obstructive sleep apnea/obesity hypoventilation syndrome: Intolerant to CPAP
AB.32/70/64. History of chronic hypercapnic respiratory failure
Chronic hypoxic hypercarbic RF
Recurrent suspected aspiration pneumonia
Speech evaluation 09/28/2023: Mild oropharyngeal dysphagia on video barium swallow 06/07/2023
Suspect noncompliance with diet at [place]
L basilar infiltrate on CXR and CT June 2023, adm , negative PCT, received ceftriaxone and azithromycin for 2 d and atbs were d/c
Mild
GERD
Hypothyroidism
HTN
Schizophrenia
Anemia
Nephrolithiasis
BPH
Polydipsia
Sz
T2DM
Legally blind
Glaucoma
COVID
Cholecystectomy
Former Smoker
NHR
Disabled
Plan:
Mental status is baseline:
Intermittently refusing BiPAP. He does have a machine at home.
ABG reviewed, showing acute on chronic retention, CO2 baseline has worsened with last blood gas from 12/14/2023 showing 7.31/93
-V Blood gas checked on the morning of 12/17/2023 showing compensated hypercapnia with pH 7.39, pCO2 72
Continue BIPAP at 15/5 as able at bedtime and with naps. This has been discussed with the patient multiple times.
Looks like he has a machine at home. Compliance was encouraged.
High risk for readmission if not in use.
Acute on chronic hypoxemia. Resolved. Back to baseline.
Chest x-ray 12/18/2023: Demonstrated minimal bibasilar opacities, left greater than right, pneumonia versus subsegmental atelectasis. No significant change compared to prior.
Currently on 2 L.
Aspiration has been an issue in past-does have history of oropharyngeal dysphagia reported in the past.
Patient in general in the outpatient setting does not follow-up with modifications. He lives at their [facility]. Usually comes to the office with a visiting nurse.
Of note, patient has been admitted for similar presentation. Discharge dates as follows -- 11/24/23, 11/14/23, 10/16/23, 10/02/23, 07/19/23, 06/20/23, 05/04/23
Poor quality of life. Patient does not seem to understand severity of illness
He has baseline cognitive impairment, resides in [place]-follow instructions regarding aspiration precautions and diet modifications. This has been an issue in the past with Dr. Addison.
Prior history of lung disease: COPD
Chronic hypoxemic respiratory failure. Has refused on BiPAP in the past intermittent. He does have a machine. Discussed with case management.
Not bronchospastic on exam 12/19/2019
Transitioned to prednisone, decrease by 10 mg every 48 hours to off
Continue DuoNebs as prior admission
Restart Pulmicort as prior admission
-
In the outpatient setting follows up with Dr. Addison. Unable to perform inhaler technique.
Unable to perform pulmonary function testing maneuvers
Has FEV1 of around 40%.
Status post diuresis. Now discontinued.
Chest x-ray 12/18/2023 not consistent with pulmonary edema.
ProBNP negative (208 from 12/14/2023)
ECHO in past stable
- Echo repeated on 12/15/2023 showing normal biventricular size and function without regional WMA, mild aortic stenosis with mild�moderate TR. No significant change compared to prior echo in April 2023
Chronic aspiration: Oropharyngeal dysphagia.
He has history of recurrent aspiration/frequent admissions
Speech therapy eval, known to their service/prior VSE reviewed
-
continue to monitor off antibiotics. Procal <0.05 on 12/15/2023
Afebrile without leukocytosis.
GOC discussions would be appropriate in this patient-unclear if this patient fully understands severity of illness with advanced COPD and hypercapnic respiratory failure.
He remains full code
At this point, I agree with discharge planning.
No additional recommendation from the pulmonary perspective.
Sign off

Diagnostic Data
CXR 12/14/23- No evidence for new parenchymal opacity. Cardiac silhouette and vascular markings appear within normal limits.
Chest X-Ray: 11/12/23- Patchy opacity in the right lung base may represent atelectasis or mild pneumonia in the appropriate clinical setting. No large pleural effusion or pneumothorax. The cardiomediastinal silhouette is stable. Chronic degenerative
changes of the spine. Mild thoracic levoscoliosis.
10/14/23- Improved findings suggesting right lower lobe pneumonia. Findings suggesting COPD.
CT Scan: CHEST 09/13/23- 1. No CTA evidence for an acute pulmonary thromboembolism.
2. Small right pleural effusion.
3. Patchy airspace opacity in the inferior right lower lobe most suspicious for mild pneumonia.
4. Mildly enlarged right hilar lymph node, nonspecific but favored to be reactive.
VSE 09/28/23- Video Swallow Study Summary: Patient presents with mild oral/pharyngeal stages of swallowing. There was deep laryngeal penetration which cleared larynx with thin liquids via cup/consecutive cup sips and upper transient penetration with
thin liquids via cup with a chin tuck.
Echo: 04/28/23- Contrast used. Hyperdynamic left ventricular systolic function. LV ejection fraction is 70-75%. Mild aortic stenosis. No prior study available for comparison.
Reports and relevant images were personally reviewed.
Total time spent today was 35 minutes for this encounter. Time includes reviewing laboratory test/imaging results, reviewing pertinent medical records, obtaining and reviewing medical history, performing an appropriate exam, ordering medications,
tests and procedures. Time also includes documentation of this encounter, coordinating patient care and communicating with other healthcare professionals. Total time does not include separately billed tests performed on this date of service.
Subjective Data
-
Date of Service:
Date of Service: December 19, 2023
Chief Complaint: Pulmonary Follow Up
Subjective:
Patient has no new complaints
Denies significant increased cough or shortness of breath.
Tolerating diet.
Review of Systems
Cardiopulmonary: Dyspnea (none at rest)
GI: Abdominal Pain (n)
Objective Data
Data Reviewed
Vital Signs / I&O / Oxygen:
Vital Signs
Temp Pulse Resp BP Pulse Ox
97.4 F 83 16 129/64 96
12/19/23 11:10 12/19/23 15:01 12/19/23 15:01 12/19/23 11:10 12/19/23 15:01
Intake and Output
12/18/23 12/19/23 12/20/23
06:59 06:59 06:59
Intake Total 480 / 480 1380 / 1380
Output Total 1900 / 1900 1200 / 1200
Balance -1420 / -1420 180 / 180
SaO2 96
Nasal Cannula flow liters per 3
minute
Physical Exam
General: Respiratory Distress (negative), Comfortable, Good Appetite and Other (nad)
HEENT: Normocephalic, Anicteric, Moist Mucous Membranes and Other (ocular palsy noted)
Cardiovascular: S1-S2, Regular Rhythm and Peripheral Edema (+2 lower extremity edema (L >R))
Respiratory: Wheeze (negative), Crackles (In the riqqib-rz-hqdgn lung shi bilaterally), Rhonchi (negative), Non-Labored Respirations and Other (Diminished breath sounds (upper lobes bilaterally))
GI: Soft, Non Distended, Non Tender and Normal Bowel Sounds
Neurology: Awake, Alert, Tremors (negative) and Other (confused at baseline/cognitive impairment)
Skin: Warm, Dry and Jaundice (negative)
Labs/Micro/Reports
Lab Data
12/18/23 06:32
12/18/23 06:32
Microbiology
12/14/23 13:43 Blood/Venous Blood Culture - Final
No Growth - Final Report
12/14/23 11:51 Blood/Venous Blood Culture - Final
No Growth - Final Report
[2023-12-19 17:02] LABS: Glucose - Point of Care 350 mg/dl (70-99)
[2023-12-19] MEDS: NOVOLOG FLEXPEN-LOW RESISTANCE 5 UNITS SC (17:16)
[2023-12-19] MEDS: LOVENOX 40 MG SC (17:16)
[2023-12-19] MEDS: ZYPREXA 30 MG PO (21:23)
[2023-12-19] MEDS: SEROQUEL 50 MG PO (21:23)
[2023-12-19] MEDS: FLOMAX 0.4 MG PO (21:24)
[2023-12-19 21:36] LABS: Glucose - Point of Care 155 mg/dl (70-99)
[2023-12-20] VITALS (8 sets, daily range): BP systolic 119–137; BP diastolic 65–83; PULSE 82–85; O2SAT 95; BMI 24.9
--- NOTE | 2023-12-20 04:18 | DOWNTIME ---
There was a [employer] Client Ultrasound Technologist Sonographer Downtime on 12/20/2023 from 0100 to 12/20/2023 at 0300. Downtime documentation of patient's care, including medication administrations, has been reconciled in the electronic record per guidelines. Refer to the
patient's paper chart under the miscellaneous tab to see printed paper medication records and downtime forms.
[2023-12-20] MEDS: SYNTHROID 200 MCG PO (05:39)
[2023-12-20 07:37] LABS: Glucose - Point of Care 95 mg/dl (70-99)
--- NOTE | 2023-12-20 07:38 | PN.DE.MGMTRT ---
Insulin Management
- -
12/20/2023: Diabetes management Follow up:
Patient admitted with Hypoxia due to COPD exacerbation, from [facility] where he resides. Pt was treated with IV steroids with subsequent Hyperglycemia. PMH: Developmental delay, Schizophrenia, HTN, hypothyroid, COPD on 3 to 4 L, epilepsy, GERD,
BPH, glaucoma, left eye vision loss and T2DM. Prior to admission his diabetes regimen included Lantus 18 units, Januvia 100 mg daily and Metformin 1000 mg BID with sliding scale Novolin R. Recent A1C 7.3% on 11/27, Cr 0.5, eGFR >60. Pt states that
Crystal at the group monitors his blood sugars and gives him his insulin.
Patient is awake, alert and oriented to self with some confusion, resting in bed, pleasant and able to discuss diabetes mgt.
IV Steroids discontinued on 12/15, currently receiving Prednisone 30 mg daily.
12/17 fasting glucose 71, ac novolog stopped, glucose up to 220 pre lunch and dinner. AC novolog resumed at 3 units with low corrective. Pre meal glucose 12/18 range 93 to 350. Will increase AC novolog to 5 units continue Januvia 100 mg daily with
metformin 1000 mg BID with Lantus 18 units daily.
Will closely monitor and make further adjustments .
Diabetes plan of care discussed with Nurse and pt.
Diabetes History
- -
Type of Diabetes: 2 requiring insulin
Pre-Admission Diabetes Regimen
Insulin Pump Settings
IP Diabetes Regimen
12/19/23 12/19/23 12/19/23
08:01 12:20 17:01
POC Glucose 93 175 H 350 H
12/19/23 12/20/23
21:29 07:35
POC Glucose 155 H 95
Meal type: Dinner
Meal type: Lunch
Meal type: Breakfast
Amount consumed: 100%
Amount consumed: 100%
Amount consumed: 100%
Patient Education
[2023-12-20] MEDS: JANUVIA 100 MG PO (07:39)
[2023-12-20] MEDS: PROTONIX 40 MG PO (07:39)
[2023-12-20] MEDS: DELTASONE 30 MG PO (07:39)
[2023-12-20] MEDS: DEPAKOTE (12 HR RELEASE) 250 MG PO ×2 (07:39→19:54)
[2023-12-20] MEDS: ZITHROMAX 250 MG PO (07:39)
[2023-12-20] MEDS: LIPITOR 20 MG PO (07:39)
[2023-12-20] MEDS: PEPCID 20 MG PO (07:39)
[2023-12-20] MEDS: NORVASC 5 MG PO (07:40)
[2023-12-20] MEDS: CARDIZEM CD 120 MG PO (07:40)
[2023-12-20] MEDS: VITAMIN B-12 500 MCG PO (07:40)
[2023-12-20] MEDS: NOVOLOG FLEXPEN-LOW RESISTANCE SC (07:40)
[2023-12-20] MEDS: GLUCOPHAGE 1000 MG PO ×2 (07:40→16:54)
[2023-12-20] MEDS: DEPAKOTE (12 HR RELEASE) 1000 MG PO ×2 (07:40→19:53)
[2023-12-20] MEDS: LANTUS 0.18 UNITS SC (07:41)
[2023-12-20] MEDS: NOVOLOG FLEXPEN SC (07:41)
[2023-12-20] MEDS: NOVOLOG FLEXPEN 5 UNITS SC ×3 (07:41→16:54)
[2023-12-20] MEDS: PULMICORT 0.5 MG INH ×2 (08:12→19:59)
[2023-12-20] MEDS: DUONEB 3 ML INH ×4 (08:12→19:59)
--- NOTE | 2023-12-20 10:21 | CM ---
Addendum entered by Celina Gee RN 12/20/23 11:12:
Received call from Rubi REY with [facility] ([phone]) inquiring on placement. Updated that we do not have a definitive SNF at this point and psych eval is pending for [facility] to evaluation.
Original Note:
Reviewed the chart notes and spoke with the patient at the bedside. Patient remains on Medsitter. CM continues to be available to patient/family and is monitoring medical plan for needs at discharge.
Plan: Discharge to SNF once bed found and approval received from the state.
[2023-12-20 12:10] LABS: Glucose - Point of Care 197 mg/dl (70-99)
[2023-12-20] MEDS: NOVOLOG FLEXPEN-LOW RESISTANCE 1 UNITS SC (12:11)
--- NOTE | 2023-12-20 12:48 | W.PN.HOSP.TC ---
Today's Communication/Plan
-
Discharge planning
Psychiatry consult
Assessment / Plan
Assessment / Plan
Gen-AAOx3, NAD
HEENT-NC, AT, anicteric, clear oral mm
Neck-supple
CV-reg, no M, +S1/S2
Lungs-clear bilaterally
Abd-soft, NT, ND
Ext-no edema
Musculoskeletal-no cyanosis, clubbing
Skin-warm and dry
Neuro-grossly non-focal
Psych-calm, cooperative
Acute on chronic hypoxic/hypercapnic respiratory failure -differential diagnosis includes acute COPD exacerbation versus aspiration pneumonitis versus other. No evidence of pneumonia or CHF.
Oxygenation improved, currently on 3 L. This is his baseline.
Speech therapy recommends soft and bite sized diet.
Ideally needs BiPAP on discharge but anticipate that he will likely refuse. He is refusing in the hospital.
Acute COPD exacerbation -wheezing improved. Prednisone taper.
-Azithro MWF -chronic
-Duonebs
-ICS/LAMA/LABA on DC
-Outpt Pulm follow up for repeat PFT's
Peripheral edema -no DVT noted on Doppler ultrasound.
DM 2 with hyperglycemia/hypoglycemia -last HgbA1c A1c 7.3% in November. Glucose 95 this morning. Home meds resumed, Lantus 18 units daily, Januvia, metformin. Aspart 5 units AC added by diabetes service.
Bicytopenia -unclear etiology of leukopenia and anemia. Will need outpatient follow-up.
Hypothyroid
-Continue levothyroxine
GERD
-Continue PPI
BPH
-Continue Flomax
Schizophrenia
-Continue seroquel and olanzapine
Full code
Dispo - he is a resident of [facility]. Trying to get him to short-term rehab. Medically stable for discharge. Case management asking for psychiatry consult.
Anticipated Discharge: Within 24 hours
Subjective/Interval History
-
Date of Service: December 20, 2023
Patient seen and examined. No complaints.
Objective Data
-
Vital Signs:
Vital Signs
Temp Pulse Resp BP Pulse Ox
97.5 F 81 16 119/65 95
12/20/23 11:20 12/20/23 11:20 12/20/23 11:20 12/20/23 11:20 12/20/23 11:20
I&O
12/19/23 12/20/23 12/21/23
06:59 06:59 06:59
Intake Total 1380 / 1380 1540 / 1540
Output Total 1200 / 1200
Balance 180 / 180 1540 / 1540
Review of Systems
-
History Source: Patient
All other systems: Reviewed and negative
--- NOTE | 2023-12-20 16:07 | CON.MD ---
Consultation - Medical
-
patient seen chart reviewed. discussed w nursing. the patient is known to me. please see psych notes from april 2023 admission. he was admitted this time to for 'breathing problem'. he does have hx aspiration. consult ordered presumably bc
of his psychiatric medications. he reportedly has some hx of hallucinations in the past. not currently. he resides at [facility] having transferred there from a in [place]. he offers no complaints except he asks for chicken breast for
dinner. nursing tells me that he eats ravenously. his psych meds include zyprexa 30 mg and seroquel 50 mg q hs in addition to depakote 1250 mg bid all of which stimulate appetite and can cause weight gain. the patient did not appear depressed. he
is not suicidal. he is not a very good historian. he reportedly has a developmental delay however the dx of schizophrenia also appears in his chart and this was working dx when he was admitted in april and schizophrenia can also result in
paucity of thought and expression.
past psych hx obtained from chart. patient lives in [facility] which is a mental health rtf. he was on the last admit to also taking two antipsyhchotics one of which was stopped by psych retail sales vitamin consultant
medical hx patient w hx copd aspiration pneumonia dysphagia dm hypothyroid epilepsy gerd htn bph glaucoma l eye vision loss
fh non contributory
social hx resides at [place]. has never been able to work. has a sister in [place] with whom he speaks from time to time. likes to watch tv
mse alert oriented to 'hospital' his name not to time. speech is sometimes hard to understand but normal rate. thought process a bit perseverative at times eg on the them of chicken for dinner. no overt psychosis paucity of thought and
expression mood is neutral affect a bit blunted insight judgmeht lacking
dx schizophrenia
plan would stop the seroquel and reduce zyprexa to 20 mg which is the top recommended does. antipsychotics could contribute to dysphagia and thereby to aspiration. depakote is likely for seizures. would monitor level . should be in therapeutic
range. currently 54.8 which is okay. depakote could provide some coverage if there are issues w agitation as well. psych will check in on him tomorrow. if he remains stable will sign off.
[2023-12-20 16:55] LABS: Glucose - Point of Care 290 mg/dl (70-99)
[2023-12-20] MEDS: NOVOLOG FLEXPEN-LOW RESISTANCE 3 UNITS SC (16:55)
[2023-12-20] MEDS: LOVENOX 40 MG SC (16:56)
[2023-12-20] MEDS: FLOMAX 0.4 MG PO (21:47)
[2023-12-20] MEDS: ZYPREXA 20 MG PO (21:47)
[2023-12-20 21:48] LABS: Glucose - Point of Care 183 mg/dl (70-99)
[2023-12-21] VITALS (7 sets, daily range): BP systolic 105–143; BP diastolic 61–79
[2023-12-21] MEDS: SYNTHROID 200 MCG PO (05:59)
--- NOTE | 2023-12-21 07:39 | PN.DE.MGMTRT ---
Insulin Management
- -
12/21/2023: Diabetes management Follow up:
Patient admitted with Hypoxia due to COPD exacerbation, from [facility] where he resides. Pt was treated with IV steroids with subsequent Hyperglycemia. PMH: Developmental delay, Schizophrenia, HTN, hypothyroid, COPD on 3 to 4 L, epilepsy, GERD,
BPH, glaucoma, left eye vision loss and T2DM. Prior to admission his diabetes regimen included Lantus 18 units, Januvia 100 mg daily and Metformin 1000 mg BID with sliding scale Novolin R. Recent A1C 7.3% on 11/27, Cr 0.5, eGFR >60. Pt states that
Crystal at the group monitors his blood sugars and gives him his insulin.
Patient is awake, alert and oriented to self with some confusion, resting in bed, pleasant and able to discuss diabetes mgt.
IV Steroids discontinued on 12/15, currently receiving Prednisone 30 mg daily.
12/17 fasting glucose 71, ac novolog stopped, glucose up to 220 pre lunch and dinner. AC novolog resumed at 3 units with low corrective. Pre meal glucose 12/18 range 93 to 290. Will increase AC novolog to 7 units continue Januvia 100 mg daily with
metformin 1000 mg BID with Lantus 18 units daily.
Will closely monitor and make further adjustments .
Diabetes plan of care discussed with Nurse and pt.
Diabetes History
- -
Type of Diabetes: 2 requiring insulin
Pre-Admission Diabetes Regimen
Insulin Pump Settings
IP Diabetes Regimen
12/20/23 12/20/23 12/20/23
12:09 16:53 21:46
POC Glucose 197 H 290 H 183 H
Meal type: Dinner
Meal type: Lunch
Meal type: Breakfast
Amount consumed: 100%
Amount consumed: 100%
Amount consumed: 100%
Patient Education
[2023-12-21 07:42] LABS: Glucose - Point of Care 93 mg/dl (70-99)
[2023-12-21] MEDS: CARDIZEM CD 120 MG PO (08:00)
[2023-12-21] MEDS: DELTASONE 30 MG PO (08:01)
[2023-12-21] MEDS: PROTONIX 40 MG PO (08:01)
[2023-12-21] MEDS: NORVASC 5 MG PO (08:01)
[2023-12-21] MEDS: GLUCOPHAGE 1000 MG PO ×2 (08:02→17:16)
[2023-12-21] MEDS: PEPCID 20 MG PO (08:02)
[2023-12-21] MEDS: LIPITOR 20 MG PO (08:02)
[2023-12-21] MEDS: JANUVIA 100 MG PO (08:02)
[2023-12-21] MEDS: DEPAKOTE (12 HR RELEASE) 250 MG PO ×2 (08:03→20:35)
[2023-12-21] MEDS: DEPAKOTE (12 HR RELEASE) 1000 MG PO ×2 (08:03→20:34)
[2023-12-21] MEDS: VITAMIN B-12 500 MCG PO (08:03)
[2023-12-21] MEDS: LANTUS 0.18 UNITS SC (08:04)
[2023-12-21] MEDS: NOVOLOG FLEXPEN-LOW RESISTANCE SC ×2 (08:04→13:22)
[2023-12-21] MEDS: NOVOLOG FLEXPEN SC (08:05)
[2023-12-21] MEDS: NOVOLOG FLEXPEN 7 UNITS SC ×3 (08:05→17:17)
[2023-12-21] MEDS: PULMICORT 0.5 MG INH ×2 (08:09→19:25)
[2023-12-21] MEDS: DUONEB 3 ML INH ×4 (08:09→19:25)
--- NOTE | 2023-12-21 09:46 | CM ---
Addendum entered by Celina Gee RN 12/21/23 10:58:
Received e-mail from [facility] they will be out to do initial assement on Monday, 25 December 2023, at 11:30am. Patient informed.
Original Note:
Reviewed the chart notes. Psychiatry saw patient yesterday. Consult note from yesterday and April 2023 faxed to [facility]. CM continues to be available to patient/family and is monitoring medical plan for needs at discharge.
Plan: Discharge to SNF/rehab once [facility] evaluation completed.
--- NOTE | 2023-12-21 11:21 | W.PN.UPDATE ---
Update Note
Progress Note Update
patient seen chart reviewed. discussed w dr heller and with nursing. the patient is doing reasonably well. he was pleasant. he shook my hand when i introduced myself again...asked me if i were a doctor. he told me what he had for breakfast. he
offered no complaints. said he slept well which had concerned me as we did decrease his hs meds yesterday.. i explained again the changes i made in his medications and that we would get a depakote level tomorrow. the level i had referred to was
actually done last admit and given high dose we should get it rechecked. he is going to be referred to snf before returning to [facility]. i do not anticipate any issues w decrease in meds. he actually seemed a bit more awake and alert to me.
will sign off but if there are any concerns please let psych know.
--- NOTE | 2023-12-21 12:31 | W.PN.HOSP.TC ---
Today's Communication/Plan
-
Continue current care
Assessment / Plan
Assessment / Plan
Gen-AAOx3, NAD
HEENT-NC, AT, anicteric, clear oral mm
Neck-supple
CV-reg, no M, +S1/S2
Lungs-clear bilaterally
Abd-soft, NT, ND
Ext-no edema
Musculoskeletal-no cyanosis, clubbing
Skin-warm and dry
Neuro-grossly non-focal
Psych-calm, cooperative
Acute on chronic hypoxic/hypercapnic respiratory failure -differential diagnosis includes acute COPD exacerbation versus aspiration pneumonitis versus other. No evidence of pneumonia or CHF.
Oxygenation improved, currently on 2 L. This is his baseline.
Speech therapy recommends soft and bite sized diet.
Ideally needs BiPAP on discharge but anticipate that he will likely refuse. He is refusing in the hospital.
Acute COPD exacerbation -wheezing improved. Prednisone taper.
-Azithro MWF -chronic
-Duonebs
-ICS/LAMA/LABA on DC
-Outpt Pulm follow up for repeat PFT's
Peripheral edema -no DVT noted on Doppler ultrasound.
DM 2 with hyperglycemia/hypoglycemia -last HgbA1c A1c 7.3% in November. Glucose 93 this morning. Home meds resumed, Lantus 18 units daily, Januvia, metformin. Aspart 7 units AC.
Bicytopenia -unclear etiology of leukopenia and anemia. Will need outpatient follow-up.
Hypothyroid
-Continue levothyroxine
GERD
-Continue PPI
BPH
-Continue Flomax
Schizophrenia
-Continue seroquel and olanzapine. Psychiatry input noted.
Full code
Dispo - he is a resident of [facility]. Trying to get him to short-term rehab. Medically stable for discharge. Case management asking for psychiatry consult.
Anticipated Discharge: > 48 hours
Subjective/Interval History
-
Date of Service: December 21, 2023
Patient seen and examined. No complaints.
Objective Data
-
Vital Signs:
Vital Signs
Temp Pulse Resp BP Pulse Ox
97.3 F 87 16 135/79 96
12/21/23 11:20 12/21/23 11:20 12/21/23 11:20 12/21/23 11:20 12/21/23 11:20
I&O
12/20/23 12/21/23 12/22/23
06:59 06:59 06:59
Intake Total 1540 / 1540 1600 / 1600
Balance 1540 / 1540 1600 / 1600
Review of Systems
-
History Source: Patient
All other systems: Reviewed and negative
[2023-12-21 12:51] LABS: Glucose - Point of Care 94 mg/dl (70-99)
[2023-12-21 16:54] LABS: Glucose - Point of Care 227 mg/dl (70-99)
[2023-12-21] MEDS: LOVENOX 40 MG SC (17:16)
[2023-12-21] MEDS: NOVOLOG FLEXPEN-LOW RESISTANCE 2 UNITS SC (17:18)
[2023-12-21] MEDS: TYLENOL 650 MG PO (20:34)
[2023-12-21 21:58] LABS: Glucose - Point of Care 234 mg/dl (70-99)
[2023-12-21] MEDS: FLOMAX 0.4 MG PO (22:40)
[2023-12-21] MEDS: ZYPREXA 20 MG PO (22:41)
[2023-12-22 03:56] VITALS: BP 149/80
[2023-12-22 05:32] VITALS: BMI 25.4
[2023-12-22 06:11] LABS: Depakane 76.5 ug/ml (50.0-120.0)
[2023-12-22] MEDS: SYNTHROID 200 MCG PO (06:21)
[2023-12-22 06:45] LABS: Glucose - Point of Care 124 mg/dl (70-99)
[2023-12-22 07:10] LABS: Glucose - Point of Care 138 mg/dl (70-99)
[2023-12-22] MEDS: DUONEB 3 ML INH (07:24)
[2023-12-22] MEDS: PULMICORT 0.5 MG INH (07:24)
--- NOTE | 2023-12-22 07:33 | PN.DE.MGMTRT ---
Insulin Management
- -
12/22/2023: Diabetes management Follow up:
Patient admitted with Hypoxia due to COPD exacerbation, from [facility] where he resides. Pt was treated with IV steroids with subsequent Hyperglycemia. PMH: Developmental delay, Schizophrenia, HTN, hypothyroid, COPD on 3 to 4 L, epilepsy, GERD,
BPH, glaucoma, left eye vision loss and T2DM. Prior to admission his diabetes regimen included Lantus 18 units, Januvia 100 mg daily and Metformin 1000 mg BID with sliding scale Novolin R. Recent A1C 7.3% on 11/27, Cr 0.5, eGFR >60. Pt states that
Crystal at the group monitors his blood sugars and gives him his insulin.
Patient is awake, alert and oriented to self with some confusion, resting in bed, pleasant and able to discuss diabetes mgt.
IV Steroids discontinued on 12/15, currently receiving Prednisone 30 mg daily.
12/19 AC NovoLog increased to 7 units due to Hyperglycemia pre lunch and dinner.
12/20 glucose improved to 93 pre breakfast, 94 pre lunch but up to 227 pre dinner. Fasting 138 this AM.
Will make no changes to current regimen. Cont AC NovoLog 7 units, Januvia 100 mg daily, Metformin 1000 mg BID and Lantus 18 units daily.
Will closely monitor and make further adjustments if necessary .
Diabetes History
- -
Type of Diabetes: 2 requiring insulin
Pre-Admission Diabetes Regimen
Insulin Pump Settings
IP Diabetes Regimen
12/21/23 12/21/23 12/21/23
07:41 12:49 16:53
POC Glucose 93 94 227 H
12/21/23 12/22/23 12/22/23
21:57 06:44 07:09
POC Glucose 234 H 124 H 138 H
Meal type: Dinner
Meal type: Lunch
Meal type: Breakfast
Amount consumed: 100%
Amount consumed: 100%
Amount consumed: 100%
Patient Education
[2023-12-22 07:50] VITALS: BP 124/76
[2023-12-22] MEDS: DEPAKOTE (12 HR RELEASE) 1000 MG PO ×2 (07:50→20:48)
[2023-12-22] MEDS: JANUVIA 100 MG PO (07:50)
[2023-12-22] MEDS: DELTASONE 20 MG PO (07:50)
[2023-12-22] MEDS: GLUCOPHAGE 1000 MG PO ×2 (07:50→16:59)
[2023-12-22] MEDS: VITAMIN B-12 500 MCG PO (07:50)
[2023-12-22] MEDS: PEPCID 20 MG PO (07:50)
[2023-12-22] MEDS: LIPITOR 20 MG PO (07:50)
[2023-12-22] MEDS: PROTONIX 40 MG PO (07:50)
[2023-12-22] MEDS: ZITHROMAX 250 MG PO (07:51)
[2023-12-22] MEDS: DEPAKOTE (12 HR RELEASE) 250 MG PO ×2 (07:51→20:49)
[2023-12-22] MEDS: LANTUS 0.18 UNITS SC (07:51)
[2023-12-22] MEDS: CARDIZEM CD 120 MG PO (07:51)
[2023-12-22] MEDS: NORVASC 5 MG PO (07:51)
[2023-12-22] MEDS: NOVOLOG FLEXPEN-LOW RESISTANCE SC ×3 (07:51→16:58)
[2023-12-22] MEDS: NOVOLOG FLEXPEN 7 UNITS SC ×3 (07:52→16:59)
[2023-12-22 10:24] VITALS: PULSE 91; O2SAT 98
[2023-12-22 11:22] LABS: Glucose - Point of Care 93 mg/dl (70-99)
--- NOTE | 2023-12-22 11:27 | CM ---
Reviewed the chart notes. [facility] will be out on Monday to evaluate the patient for SNF placement. [facility] willing to accept the patient. [facility] is interested, but is waiting on Level II determination. continues
to be available to patient/family and is monitoring medical plan for needs at discharge.
Plan: Discharge to SNF once approval received from state and bed found. No precert required.
--- NOTE | 2023-12-22 12:16 | W.PN.HOSP.TC ---
Today's Communication/Plan
-
Continue current care
Assessment / Plan
Assessment / Plan
Gen-AAOx3, NAD
HEENT-NC, AT, anicteric, clear oral mm
Neck-supple
CV-reg, no M, +S1/S2
Lungs-clear bilaterally
Abd-soft, NT, ND
Ext-no edema
Musculoskeletal-no cyanosis, clubbing
Skin-warm and dry
Neuro-grossly non-focal
Psych-calm, cooperative
Acute on chronic hypoxic/hypercapnic respiratory failure -differential diagnosis includes acute COPD exacerbation versus aspiration pneumonitis versus other. No evidence of pneumonia or CHF.
Oxygenation improved, currently on 2 L. This is his baseline.
Speech therapy recommends soft and bite sized diet.
Ideally needs BiPAP on discharge but anticipate that he will likely refuse. He is refusing in the hospital.
Acute COPD exacerbation -wheezing improved. Prednisone taper.
-Azithro MWF -chronic
-Duonebs
-ICS/LAMA/LABA on DC
-Outpt Pulm follow up for repeat PFT's
Peripheral edema -no DVT noted on Doppler ultrasound.
DM 2 with hyperglycemia/hypoglycemia -last HgbA1c A1c 7.3% in November. Glucose 124 this morning. Home meds resumed, Lantus 18 units daily, Januvia, metformin. Aspart 7 units AC.
Bicytopenia -unclear etiology of leukopenia and anemia. Will need outpatient follow-up.
Hypothyroid
-Continue levothyroxine
GERD
-Continue PPI
BPH
-Continue Flomax
Schizophrenia
-Continue seroquel and olanzapine. Psychiatry input noted.
Full code
Dispo - he is a resident of [facility]. Trying to get him to short-term rehab. Medically stable for discharge. Awaiting assessment from the state and bed availability for rehab.
Anticipated Discharge: > 48 hours
Subjective/Interval History
-
Date of Service: December 22, 2023
Patient seen and examined. No complaints.
Objective Data
-
Vital Signs:
Vital Signs
Temp Pulse Resp BP Pulse Ox
98 F 82 16 124/76 96
12/22/23 07:50 12/22/23 07:50 12/22/23 07:50 12/22/23 07:50 12/22/23 07:50
I&O
12/21/23 12/22/23 12/23/23
06:59 06:59 06:59
Intake Total 1600 / 1600 1500 / 1500
Output Total 2925 / 2925
Balance 1600 / 1600 -1425 / -1425
Review of Systems
-
History Source: Patient
All other systems: Reviewed and negative
--- NOTE | 2023-12-22 14:51 | PTCARENOTE ---
Patient walked around unit x2 with RN. Patient standby assist.
[2023-12-22 15:05] VITALS: BP 104/68
[2023-12-22 16:56] LABS: Glucose - Point of Care 109 mg/dl (70-99)
[2023-12-22] MEDS: LOVENOX 40 MG SC (16:58)
[2023-12-22 21:24] LABS: Glucose - Point of Care 131 mg/dl (70-99)
[2023-12-22] MEDS: ZYPREXA 20 MG PO (22:10)
[2023-12-22] MEDS: FLOMAX 0.4 MG PO (22:10)
[2023-12-22 23:00] VITALS: BP 141/66
[2023-12-23] MEDS: SYNTHROID 200 MCG PO (05:37)
[2023-12-23 06:00] VITALS: BMI 25.2
[2023-12-23 07:13] LABS: Glucose - Point of Care 99 mg/dl (70-99)
[2023-12-23 07:40] VITALS: BP 147/82
[2023-12-23] MEDS: VITAMIN B-12 500 MCG PO (08:06)
[2023-12-23] MEDS: GLUCOPHAGE 1000 MG PO (08:08)
[2023-12-23] MEDS: MIRALAX 17 GRAMS PO (08:08)
[2023-12-23] MEDS: DEPAKOTE (12 HR RELEASE) 250 MG PO ×2 (08:09→20:34)
[2023-12-23] MEDS: CARDIZEM CD 120 MG PO (08:09)
[2023-12-23] MEDS: DELTASONE 20 MG PO (08:09)
[2023-12-23] MEDS: JANUVIA 100 MG PO (08:09)
[2023-12-23] MEDS: PEPCID 20 MG PO (08:09)
[2023-12-23] MEDS: PROTONIX 40 MG PO (08:10)
[2023-12-23] MEDS: LIPITOR 20 MG PO (08:10)
[2023-12-23] MEDS: NORVASC 5 MG PO (08:11)
[2023-12-23] MEDS: DEPAKOTE (12 HR RELEASE) 1000 MG PO ×2 (08:11→20:33)
[2023-12-23] MEDS: ATIVAN 0.5 MG IV (08:13)
[2023-12-23] MEDS: NSS (PRESERVATIVE FREE) 0.25 ML IV (08:13)
[2023-12-23] MEDS: LANTUS 0.18 UNITS SC (08:14)
[2023-12-23] MEDS: NOVOLOG FLEXPEN 7 UNITS SC ×2 (08:18→16:13)
[2023-12-23] MEDS: NOVOLOG FLEXPEN-LOW RESISTANCE SC ×3 (08:18→17:13)
--- NOTE | 2023-12-23 09:26 | W.PN.HOSP.TC ---
Today's Communication/Plan
-
Continue current care
Assessment / Plan
Assessment / Plan
Gen-AAOx3, NAD
HEENT-NC, AT, anicteric, clear oral mm
Neck-supple
CV-reg, no M, +S1/S2
Lungs-clear bilaterally
Abd-soft, NT, ND
Ext-no edema
Musculoskeletal-no cyanosis, clubbing
Skin-warm and dry
Neuro-grossly non-focal
Psych-calm, cooperative
Acute on chronic hypoxic/hypercapnic respiratory failure -differential diagnosis includes acute COPD exacerbation versus aspiration pneumonitis versus other. No evidence of pneumonia or CHF.
Oxygenation improved, currently on 2 L. This is his baseline.
Speech therapy recommends soft and bite sized diet.
Ideally needs BiPAP on discharge but anticipate that he will likely refuse. He is refusing in the hospital.
Acute COPD exacerbation -wheezing improved. Prednisone taper.
-Azithro MWF -chronic
-Duonebs
-ICS/LAMA/LABA on DC
-Outpt Pulm follow up for repeat PFT's
Peripheral edema -no DVT noted on Doppler ultrasound.
DM 2 with hyperglycemia/hypoglycemia -last HgbA1c A1c 7.3% in November. Glucose 99 this morning. Home meds resumed, Lantus 18 units daily, Januvia, metformin. Aspart 7 units AC.
Bicytopenia -unclear etiology of leukopenia and anemia. Will need outpatient follow-up.
Hypothyroid
-Continue levothyroxine
GERD
-Continue PPI
BPH
-Continue Flomax
Schizophrenia
-Continue seroquel and olanzapine. Psychiatry input noted.
Full code
Dispo - he is a resident of [facility]. Trying to get him to short-term rehab. Medically stable for discharge. Awaiting assessment from the state and bed availability for rehab.
Anticipated Discharge: > 48 hours
Subjective/Interval History
-
Date of Service: December 23, 2023
Patient seen and examined. Asking for more coffee. No complaints.
Objective Data
-
Vital Signs:
Vital Signs
Temp Pulse Resp BP Pulse Ox
97.5 F 107 16 147/82 95
12/23/23 07:40 12/23/23 08:09 12/23/23 07:40 12/23/23 08:09 12/23/23 07:40
I&O
12/22/23 12/23/23 12/24/23
06:59 06:59 06:59
Intake Total 1500 / 1500 1740 / 1740
Output Total 2925 / 2925 1500 / 1500
Balance -1425 / -1425 240 / 240
Review of Systems
-
History Source: Patient
All other systems: Reviewed and negative
--- NOTE | 2023-12-23 10:30 | PTCARENOTE ---
Pt very agitated this AM, making repeated attempts out of bed and requiring constant assistance in room to guide him back to bed. Pt also pulled out IV overnight. made aware, new IV placed, IV ativan ordered and given. Pt now resting comfortably
asleep in bed with bed alarm and medsitter in place.
--- NOTE | 2023-12-23 12:44 | W.PN.UPDATE ---
Update Note
Progress Note Update
Called by primary team for psych follow up. Overnight and this morning, patient was agitated and pulled out his IV. He received Ativan 0.5mg IV this morning. Per nursing he responded very well too it and is sleeping at this time. Nursing also
reports discomfort from needing a bowel movement (PRNs given this morning) as well as wanting to walk when it was not an appropriate time may have been factors contributing to this episode.
12/21 VPA 76.5
Plan- will leave PRN Ativan available given good response. Continue remainder of psych med regimen as is. if further agitation occurs or recommendations are needed, please contact the psych team.
[2023-12-23 15:55] VITALS: BP 98/50
[2023-12-23 15:59] LABS: Glucose - Point of Care 124 mg/dl (70-99)
--- NOTE | 2023-12-23 16:25 | PTCARENOTE ---
Pt drowsy and sleeping most of the day, arousable but does not want to be bothered, BP running soft at 98/50, accucheck 124 after missing lunch, made aware, no new orders at this time.
[2023-12-23 17:11] LABS: Glucose - Point of Care 125 mg/dl (70-99)
[2023-12-23] MEDS: GLUCOPHAGE PO (17:12)
[2023-12-23] MEDS: NOVOLOG FLEXPEN SC (17:13)
[2023-12-23] MEDS: LOVENOX 40 MG SC (17:13)
--- NOTE | 2023-12-23 17:48 | PTCARENOTE ---
Evening dose of standing insulin 7 units held per MD order because pt is drowsy, unable to know if pt will be awake enough to eat dinner. Previously received 7 units standing while sleeping through lunch, accucheck at 125 now. No new orders at this
time.
[2023-12-23 21:43] LABS: Glucose - Point of Care 131 mg/dl (70-99)
[2023-12-23] MEDS: FLOMAX 0.4 MG PO (22:36)
[2023-12-23] MEDS: ZYPREXA 20 MG PO (22:36)
[2023-12-23 23:38] VITALS: BP 114/70
[2023-12-24] MEDS: SYNTHROID 200 MCG PO (05:43)
[2023-12-24 06:00] VITALS: BMI 24.5
[2023-12-24 07:08] LABS: Glucose - Point of Care 286 mg/dl (70-99)
[2023-12-24] MEDS: NOVOLOG FLEXPEN-LOW RESISTANCE 3 UNITS SC (07:42)
[2023-12-24] MEDS: LANTUS 0.18 UNITS SC (07:42)
[2023-12-24] MEDS: NOVOLOG FLEXPEN 7 UNITS SC ×3 (07:43→17:29)
[2023-12-24] MEDS: PEPCID 20 MG PO (07:44)
[2023-12-24] MEDS: DEPAKOTE (12 HR RELEASE) 250 MG PO ×2 (07:44→19:49)
[2023-12-24] MEDS: JANUVIA 100 MG PO (07:44)
[2023-12-24] MEDS: DEPAKOTE (12 HR RELEASE) 1000 MG PO ×2 (07:44→19:49)
[2023-12-24] MEDS: PROTONIX 40 MG PO (07:44)
[2023-12-24 07:45] VITALS: BP 132/77
[2023-12-24] MEDS: LIPITOR 20 MG PO (07:45)
[2023-12-24] MEDS: GLUCOPHAGE 1000 MG PO ×2 (07:45→17:29)
[2023-12-24] MEDS: DELTASONE 10 MG PO (07:45)
[2023-12-24] MEDS: VITAMIN B-12 500 MCG PO (07:45)
[2023-12-24] MEDS: NORVASC 5 MG PO (07:46)
[2023-12-24] MEDS: CARDIZEM CD 120 MG PO (07:47)
--- NOTE | 2023-12-24 09:04 | W.PN.HOSP.TC ---
Today's Communication/Plan
-
Discharge planning
Assessment / Plan
Assessment / Plan
Gen-AAOx3, NAD
HEENT-NC, AT, anicteric, clear oral mm
Neck-supple
CV-reg, no M, +S1/S2
Lungs-clear bilaterally
Abd-soft, NT, ND
Ext-no edema
Musculoskeletal-no cyanosis, clubbing
Skin-warm and dry
Neuro-grossly non-focal
Psych-calm, cooperative
Acute on chronic hypoxic/hypercapnic respiratory failure -differential diagnosis includes acute COPD exacerbation versus aspiration pneumonitis versus other. No evidence of pneumonia or CHF.
Oxygenation improved, currently on 2 L. This is his baseline.
Speech therapy recommends soft and bite sized diet.
Ideally needs BiPAP on discharge but anticipate that he will likely refuse. He is refusing in the hospital.
Acute COPD exacerbation -wheezing improved. Prednisone taper.
-Azithro MWF -chronic
-Duonebs
-ICS/LAMA/LABA on DC
-Outpt Pulm follow up for repeat PFT's
Peripheral edema -no DVT noted on Doppler ultrasound.
DM 2 with hyperglycemia/hypoglycemia -last HgbA1c A1c 7.3% in November. Glucose 286 this morning, 131 last night. Home meds resumed, Lantus 18 units daily, Januvia, metformin. Aspart 7 units AC. Will not make any changes to regimen for now,
monitor during the day today.
Bicytopenia -unclear etiology of leukopenia and anemia. Will need outpatient follow-up.
Hypothyroid
-Continue levothyroxine
GERD
-Continue PPI
BPH
-Continue Flomax
Schizophrenia
-Continue seroquel and olanzapine. Psychiatry input noted.
Full code
Dispo - he is a resident of [facility]. Trying to get him to short-term rehab. Medically stable for discharge. Awaiting assessment from the state and bed availability for rehab.
Anticipated Discharge: 24 - 48 hours
Subjective/Interval History
-
Date of Service: December 24, 2023
Patient seen and examined. No complaints.
Objective Data
-
Vital Signs:
Vital Signs
Temp Pulse Resp BP Pulse Ox
97.4 F 104 16 132/77 98
12/24/23 07:45 12/24/23 07:47 12/24/23 07:45 12/24/23 07:47 12/24/23 07:45
I&O
12/23/23 12/24/23 12/25/23
06:59 06:59 06:59
Intake Total 1740 / 1740 1680 / 1680
Output Total 1500 / 1500
Balance 240 / 240 1680 / 1680
Review of Systems
-
History Source: Patient
All other systems: Reviewed and negative
[2023-12-24 12:17] LABS: Glucose - Point of Care 108 mg/dl (70-99)
[2023-12-24] MEDS: NOVOLOG FLEXPEN-LOW RESISTANCE SC ×2 (12:27→17:06)
[2023-12-24 15:50] VITALS: BP 130/81
[2023-12-24 16:35] LABS: Glucose - Point of Care 103 mg/dl (70-99)
[2023-12-24] MEDS: LOVENOX 40 MG SC (17:29)
[2023-12-24 21:22] LABS: Glucose - Point of Care 116 mg/dl (70-99)
[2023-12-24] MEDS: ZYPREXA 20 MG PO (21:37)
[2023-12-24] MEDS: FLOMAX 0.4 MG PO (21:37)
[2023-12-24 22:48] VITALS: BP 154/90
[2023-12-25 04:56] VITALS: BMI 25.1
[2023-12-25] MEDS: SYNTHROID 200 MCG PO (06:15)
--- NOTE | 2023-12-25 06:59 | PN.DE.MGMTRT ---
Insulin Management
- -
12/25/2023: Diabetes management Follow up:
Patient admitted with Hypoxia due to COPD exacerbation, from [facility] where he resides. Pt was treated with IV steroids with subsequent Hyperglycemia. PMH: Developmental delay, Schizophrenia, HTN, hypothyroid, COPD on 3 to 4 L, epilepsy, GERD,
BPH, glaucoma, left eye vision loss and T2DM. Prior to admission his diabetes regimen included Lantus 18 units, Januvia 100 mg daily and Metformin 1000 mg BID with sliding scale Novolin R. Recent A1C 7.3% on 11/27, Cr 0.5, eGFR >60. Pt states that
Crystal at the group monitors his blood sugars and gives him his insulin.
Patient is awake, A/O to self with some confusion, sitting up in chair, offers no complaints, able to discuss diabetes mgt.
Pt was weaned off steroids 12/23, glucose improved over last 2 days, 103 to 108. Fasting 138 this AM.
Will STOP AC NovoLog now that he is off steroids and cont his outpatient regimen; Januvia 100 mg daily, Metformin 1000 mg BID and Lantus 18 units daily.
Will closely monitor and make further adjustments if necessary.
Meds at D/C: Januvia 100 mg daily, Metformin 1000 mg BID and Lantus 18 units daily
Diabetes History
- -
Type of Diabetes: 2 requiring insulin
Pre-Admission Diabetes Regimen
Insulin Pump Settings
IP Diabetes Regimen
12/24/23 12/24/23 12/24/23
07:07 12:15 16:34
POC Glucose 286 H 108 H 103 H
12/24/23
21:20
POC Glucose 116 H
Meal type: Lunch
Meal type: Breakfast
Amount consumed: 100%
Amount consumed: 100%
Patient Education
[2023-12-25 07:40] VITALS: BP 116/72
[2023-12-25] MEDS: NOVOLOG FLEXPEN-LOW RESISTANCE SC ×3 (07:55→17:24)
[2023-12-25] MEDS: GLUCOPHAGE 1000 MG PO ×2 (07:56→17:24)
[2023-12-25] MEDS: CARDIZEM CD 120 MG PO (07:56)
[2023-12-25] MEDS: PEPCID 20 MG PO (07:56)
[2023-12-25] MEDS: JANUVIA 100 MG PO (07:56)
[2023-12-25] MEDS: LANTUS 0.18 UNITS SC (07:56)
[2023-12-25] MEDS: DELTASONE 10 MG PO (07:56)
[2023-12-25] MEDS: NOVOLOG FLEXPEN 7 UNITS SC (07:56)
[2023-12-25] MEDS: PROTONIX 40 MG PO (07:57)
[2023-12-25] MEDS: NORVASC 5 MG PO (07:57)
[2023-12-25] MEDS: DEPAKOTE (12 HR RELEASE) 250 MG PO ×2 (07:57→19:52)
[2023-12-25] MEDS: ZITHROMAX 250 MG PO (07:57)
[2023-12-25] MEDS: VITAMIN B-12 500 MCG PO (07:57)
[2023-12-25] MEDS: DEPAKOTE (12 HR RELEASE) 1000 MG PO ×2 (07:57→19:52)
[2023-12-25] MEDS: LIPITOR 20 MG PO (07:58)
[2023-12-25 08:02] LABS: Glucose - Point of Care 103 mg/dl (70-99)
--- NOTE | 2023-12-25 10:17 | W.PN.HOSP.TC ---
Addendum entered and electronically signed by Ganga Oates MD 12/25/23 16:46:
pending [facility] if he can go to SNF.
Original Note:
Today's Communication/Plan
-
He is a resident of [facility]. Medically stable for discharge. Disposition issue presently as patient is unable to find placement at a SNF. Case management continues to follow. Will move forward with discharge once discharge planning complete.
Assessment / Plan
Assessment / Plan
HPI: Patient is a 63-year-old male with a previous history of developmental delay, COPD, schizophrenia, diabetes who presented to [facility] ER from a half-way for evaluation of shortness of breath with hypoxemia. Notably, his pulse ox
was in the 80s despite being given 4 L of oxygen via nasal cannula. EMS was called and he was placed on 15 L nonrebreather mask. Patient has been seen in [facility] ER for similar complaints in the past. Of note, the patient has been
admitted for similar presentation on 11/24/2023, 11/14/2023, 10/16/2023, 10/02/23, 07/19/2023, 06/20/23, 05/04/23.
Assessment/Plan:
- Acute on chronic hypoxic/hypercapnic respiratory failure: at Baseline
Oxygenation improved, currently on 2 L. This is his baseline.
Soft and bite-size diet recommended by speech therapy to avoid risk of aspiration.
Patient would benefit from the use of BiPAP but it is likely that the patient will not be compliant
- Acute COPD exacerbation: at baseline
Receives azithromycin Monday, Monday, Monday chronic
Patient should be discharged on ICS/LAMA/LABA for ongoing COPD with repeat exacerbation
Pulmonology should see this patient in the outpatient setting for repeat PFTs
- Peripheral edema: Stable
No DVT noted on Doppler ultrasound.
- Type 2 diabetes mellitus with hyperglycemia/hypoglycemia: Stable
Her most recent HbA1c was 7.3% in November
Current glucose is 60 in the morning, 18 units of insulin glargine given, and 7 units of insulin aspart given
Appreciate diabetes management consultation
Home meds resumed
- Bicytopenia: Monitoring
Unclear etiology of leukopenia and anemia.
Recommend outpatient follow-up.
- Hypothyroid
Continue levothyroxine
- GERD
Continue PPI
- BPH
Continue Flomax
-Schizophrenia
Continue seroquel and olanzapine.
Appreciate Psychiatry input
Full code
Dispo - He is a resident of [facility]. Medically stable for discharge. Awaiting assessment from the state and bed availability for rehab. Will move forward with discharge once discharge planning complete.
Anticipated Discharge: Today
Subjective/Interval History
-
Date of Service: December 25, 2023
Met with patient at the bedside. Kind and cooperative in discussion. He passed a large amount of gas during interview and laughed while relieving himself.
Objective Data
-
Labs:
Labs
12/18/23 06:32
12/18/23 06:32
Vital Signs:
Vital Signs
Temp Pulse Resp BP Pulse Ox
97.2 F 87 16 116/72 97
12/25/23 07:40 12/25/23 07:40 12/25/23 07:40 12/25/23 07:40 12/25/23 08:00
I&O
12/24/23 12/25/23 12/26/23
06:59 06:59 06:59
Intake Total 1680 / 1680 1979 / 1980
Output Total 1349 / 1349
Balance 1680 / 1680 631 / 631
Review of Systems
-
History Source: Patient
Constitutional: Reports No Symptoms
EENT: Reports No Symptoms Reported
Respiratory: Reports No Symptoms
Cardiac: Reports No Symptoms
Abdomen/GI: Reports No Symptoms
Genitourinary: Reports No Symptoms
Musculoskeletal: Reports No Symptoms
Skin: Reports No Symptoms
Neuro: Reports No Symptoms
Endocrine: Reports No Symptoms
Hematologic / Lymphatic: Reports No Symptoms
Physical Exam
-
General: Well Developed, Well Nourished, No Apparent Distress, Comfortable and Other (Nasal Cannula 1.5L)
HEENT: Normocephalic, Atraumatic and Moist Mucous Membranes
Respiratory: Clear to Auscultation and Decreased Breath Sounds (Decreased at the base bilaterally)
Cardiac: Regular Rhythm and S1/S2
GI: Soft, Nontender, Nondistended and Normal Bowel Sounds
Musculoskeletal: No Clubbing, No Cyanosis and No Edema
Skin: Warm
Neuro: Awake and Alert
Psych: Calm
[2023-12-25 12:14] LABS: Glucose - Point of Care 127 mg/dl (70-99)
--- NOTE | 2023-12-25 12:32 | CM ---
Reviewed the chart notes and spoke with the patient and Kyung MCKEON ([phone]) at the bedside. Patient is being evaluated for appropriateness for SNF placement. PT/OT postponed evaluation of the patient until later today due to LINDA
performing evaluation. Awaiting PT/OT recommendations. Will need to reach out to [facility] once recommendations received. CM continues to be available to patient/family and is monitoring medical plan for needs at discharge.
Plan: Discharge plans will depend on the patient's progress.
[2023-12-25 14:55] VITALS: BP 133/72; BP 141/78; PULSE 79; PULSE 80; O2SAT 96; O2SAT 98
[2023-12-25 15:51] VITALS: BP 141/76
[2023-12-25 17:21] LABS: Glucose - Point of Care 131 mg/dl (70-99)
[2023-12-25] MEDS: LOVENOX 40 MG SC (17:24)
[2023-12-25 21:39] LABS: Glucose - Point of Care 125 mg/dl (70-99)
[2023-12-25] MEDS: ZYPREXA 20 MG PO (22:05)
[2023-12-25] MEDS: FLOMAX 0.4 MG PO (22:06)
[2023-12-25 22:58] VITALS: BP 142/92
[2023-12-26 04:48] VITALS: BMI 25.3
[2023-12-26] MEDS: SYNTHROID 200 MCG PO (06:01)
--- NOTE | 2023-12-26 07:04 | W.PN.HOSP.TC ---
Addendum entered and electronically signed by Ganga Oates MD 12/26/23 12:31:
awaiting dc
dispo has become an issue. his [facility] refused to take him back. states he needs a snf due to copd hx
no on room air. no complaints.
Original Note:
Today's Communication/Plan
-
Patient is a resident of [facility]. He remains medically stable for discharge. Case management continues to follow. Staff member from [facility] explained that her leadership program internship wants the patient to go to a SNF/rehab before transitioning
back to the [facility]. Currently case management is working to find the patient a SNF rehab bed.
Assessment / Plan
Assessment / Plan
HPI: Patient is a 63-year-old male with a previous history of developmental delay, COPD, schizophrenia, diabetes who presented to [facility] evaluation of shortness of breath with hypoxemia. Notably, his pulse ox
was in the 80s despite being given 4 L of oxygen via nasal cannula. EMS was called and he was placed on 15 L nonrebreather mask. Patient has been seen in [facility] ER for similar complaints in the past. Of note, the patient has been
admitted for similar presentation on 11/24/2023, 11/14/2023, 10/16/2023, 10/02/23, 07/19/2023, 06/20/23, 05/04/23.
Assessment/Plan:
- Acute on chronic hypoxic/hypercapnic respiratory failure: at Baseline
Oxygenation improved, currently resting at room air comfortably. This is improved from his prior baseline.
Soft and bite-size diet recommended by speech therapy to avoid risk of aspiration.
Patient would benefit from the use of BiPAP but it is likely that the patient will not be compliant
- Acute COPD exacerbation: at baseline
Receives azithromycin Monday, Monday, Monday chronic
Patient should be discharged on ICS/LAMA/LABA for ongoing COPD with repeat exacerbation
Pulmonology should see this patient in the outpatient setting for repeat PFTs
- Peripheral edema: Stable
No DVT noted on Doppler ultrasound.
- Type 2 diabetes mellitus with hyperglycemia/hypoglycemia: Stable
Her most recent HbA1c was 7.3% in November
Current glucose is 60 in the morning, 18 units of insulin glargine given, and 7 units of insulin aspart given
Appreciate diabetes management consultation
Home meds resumed
- Bicytopenia: Monitoring
Unclear etiology of leukopenia and anemia.
Recommend outpatient follow-up.
- Hypothyroid
Continue levothyroxine
- GERD
Continue PPI
- BPH
Continue Flomax
-Schizophrenia
Continue seroquel and olanzapine.
Appreciate Psychiatry input
Full code
Dispo - He is a resident of [facility]. Medically stable for discharge. Awaiting assessment from the state and bed availability for rehab. Will move forward with discharge once discharge planning complete.
Anticipated Discharge: Within 24 hours
Subjective/Interval History
-
Date of Service: December 26, 2023
Met with patient at the bedside. Overall, he is doing well and offers no complaints at the present time. He states that he feels he is ready to go home. Today he was weaned off of nasal oxygen cannula. He is well tolerating room air and was seen
in his room eating breakfast.
Objective Data
-
Vital Signs:
Vital Signs
Temp Pulse Resp BP Pulse Ox
98.0 F 89 16 142/92 95
12/25/23 22:58 12/25/23 22:58 12/25/23 22:58 12/25/23 22:58 12/25/23 22:58
I&O
12/25/23 12/26/23 12/27/23
06:59 06:59 06:59
Intake Total 1979 / 1979 3420 / 3420
Output Total 1349 / 1349 1375 / 1375
Balance 631 / 631 2044 2044
Review of Systems
-
History Source: Patient
All other systems: Reviewed and negative
Constitutional: Reports No Symptoms
EENT: Reports No Symptoms Reported
Respiratory: Reports No Symptoms
Cardiac: Reports No Symptoms
Abdomen/GI: Reports No Symptoms
Breast: Reports No Symptoms
Genitourinary: Reports No Symptoms
Musculoskeletal: Reports No Symptoms
Skin: Reports No Symptoms
Neuro: Reports No Symptoms
Endocrine: Reports No Symptoms
Hematologic / Lymphatic: Reports No Symptoms
Allergy / Immunology: Reports No Symptoms
Physical Exam
-
General: Well Developed, Well Nourished, No Apparent Distress and Comfortable
HEENT: Normocephalic, Atraumatic and Moist Mucous Membranes
Respiratory: Decreased Breath Sounds (Decreased breath sounds at the base bilaterally)
Cardiac: Regular Rhythm and S1/S2
GI: Soft, Nontender, Nondistended and Normal Bowel Sounds
Genito-urinary: Deferred by me
Musculoskeletal: No Clubbing, No Cyanosis and No Edema
Skin: Warm and Dry
Neuro: Awake, Alert, Oriented and AO x 3
Psych: Calm
--- NOTE | 2023-12-26 07:32 | PN.DE.MGMTRT ---
Insulin Management
- -
12/26/2023: Diabetes management Follow up:
Patient admitted with Hypoxia due to COPD exacerbation, from [facility] where he resides. Pt was treated with IV steroids with subsequent Hyperglycemia. PMH: Developmental delay, Schizophrenia, HTN, hypothyroid, COPD on 3 to 4 L, epilepsy, GERD,
BPH, glaucoma, left eye vision loss and T2DM. Prior to admission his diabetes regimen included Lantus 18 units, Januvia 100 mg daily and Metformin 1000 mg BID with sliding scale Novolin R. Recent A1C 7.3% on 11/27, Cr 0.5, eGFR >60. Pt states that
Crystal at the group monitors his blood sugars and gives him his insulin.
Patient is awake, A/O to self with some confusion, sitting up in chair, offers no complaints, able to discuss diabetes mgt.
Pt was weaned off steroids 12/23, glucose improved over last 2 days, 103 to 108. Fasting 138 this AM.
AC NovoLog stopped 12/24, glucose range 125 to 131 requiring no corrective insulin. Will continue outpatient regimen; Januvia 100 mg daily, Metformin 1000 mg BID and Lantus 18 units daily.
Will closely monitor and make further adjustments if necessary.
Meds at Discharge: Januvia 100 mg daily, Metformin 1000 mg BID and Lantus 18 units sandy
Diabetes History
- -
Type of Diabetes: 2
Pre-Admission Diabetes Regimen
Insulin Pump Settings
IP Diabetes Regimen
12/25/23 12/25/23 12/25/23
08:01 12:13 17:20
POC Glucose 103 H 127 H 131 H
12/25/23
21:38
POC Glucose 125 H
Meal type: Dinner
Meal type: Breakfast
Meal type: Lunch
Amount consumed: 100%
Amount consumed: 95%
Amount consumed: 100%
Patient Education
[2023-12-26 07:34] LABS: Glucose - Point of Care 93 mg/dl (70-99)
[2023-12-26 07:45] VITALS: BP 134/82
[2023-12-26] MEDS: PROTONIX 40 MG PO (07:59)
[2023-12-26] MEDS: NOVOLOG FLEXPEN-LOW RESISTANCE SC ×3 (07:59→17:33)
[2023-12-26] MEDS: VITAMIN B-12 500 MCG PO (08:00)
[2023-12-26] MEDS: PEPCID 20 MG PO (08:00)
[2023-12-26] MEDS: DEPAKOTE (12 HR RELEASE) 1000 MG PO ×2 (08:00→21:22)
[2023-12-26] MEDS: JANUVIA 100 MG PO (08:00)
[2023-12-26] MEDS: LIPITOR 20 MG PO (08:00)
[2023-12-26] MEDS: CARDIZEM CD 120 MG PO (08:00)
[2023-12-26] MEDS: GLUCOPHAGE 1000 MG PO (08:01)
[2023-12-26] MEDS: NORVASC 5 MG PO (08:01)
[2023-12-26] MEDS: DEPAKOTE (12 HR RELEASE) 250 MG PO ×2 (08:01→21:23)
[2023-12-26] MEDS: LANTUS 0.18 UNITS SC (08:01)
--- NOTE | 2023-12-26 10:22 | CM ---
Reviewed the chart notes and spoke with nurse Elizabeth at [facility] ([phone]). Updated on patient's pulmonary status off oxygen and ambulating 150' without device. Clinicals faxed for review to ([phone]). Elizabeth voiced concern over the
multiple hospitalizations over the past six months. Explained that a SNF will not fix the problem, they are for rehab purposes only. [facility] letter received and placed on chart and scanned into [facility]. Patient is eligible for SNF/rehab up to 180
days. Per Elizabeth, her it programmer analyst wants patient to go to SNF/rehab before transitioning back to [facility]. CM continues to be available to patient/family and is monitoring medical plan for needs at discharge.
Plan: SNF rehab once bed found. No precert required.
[2023-12-26 11:35] VITALS: O2SAT 94; O2SAT 95
[2023-12-26 11:35] LABS: Glucose - Point of Care 107 mg/dl (70-99)
--- NOTE | 2023-12-26 12:56 | VATNOTE ---
During routine assessment, noted palpable venous denisa approx 1'. Marked. Pt has mild pain at site. no redness or swelling noted. Discontinued and new IV started. Attempted to apply heat but pt's lunch arrived. Will continue to monitor.
[2023-12-26 15:35] VITALS: BP 126/68
[2023-12-26 17:19] LABS: Glucose - Point of Care 59 mg/dl (70-99)
[2023-12-26] MEDS: GLUCOPHAGE PO (17:33)
--- NOTE | 2023-12-26 17:35 | VATNOTE ---
Right forearm phlebitis reassessed. Area of involvement remains unchanged in size. 1' palpable cord. Firm, red and tender to touch. Warm soak applied. Primary care RN aware. K-pad ordered.
[2023-12-26 17:41] LABS: Glucose - Point of Care 63 mg/dl (70-99)
[2023-12-26] MEDS: LOVENOX 40 MG SC (17:55)
[2023-12-26 18:16] LABS: Glucose - Point of Care 94 mg/dl (70-99)
[2023-12-26 20:16] LABS: Glucose - Point of Care 233 mg/dl (70-99)
[2023-12-26] MEDS: FLOMAX 0.4 MG PO (21:23)
[2023-12-26] MEDS: ZYPREXA 20 MG PO (21:23)
[2023-12-26 21:31] LABS: Glucose - Point of Care 212 mg/dl (70-99)
[2023-12-26 23:05] VITALS: BP 155/93
[2023-12-27 02:50] LABS: Glucose - Point of Care 157 mg/dl (70-99)
[2023-12-27 05:14] VITALS: BMI 25.3
[2023-12-27] MEDS: SYNTHROID 200 MCG PO (06:12)
--- NOTE | 2023-12-27 07:07 | W.PN.HOSP.TC ---
Addendum entered and electronically signed by Ganga Oates MD 12/27/23 15:44:
for dc to snf
Original Note:
Today's Communication/Plan
-
We continue to await positive news in regards to SNF/rehab placement. His prior residence the [facility] will not take him back unless he goes to a custodial facility due to COPD history. Current plan is to discharge to SNF/rehab once bed
is confirmed at [facility] or [facility].
Assessment / Plan
Assessment / Plan
HPI: Patient is a 63-year-old male with a previous history of developmental delay, COPD, schizophrenia, diabetes who presented to [facility] ER from a intermediate for evaluation of shortness of breath with hypoxemia. Notably, his pulse ox
was in the 80s despite being given 4 L of oxygen via nasal cannula. EMS was called and he was placed on 15 L nonrebreather mask. Patient has been seen in [facility] ER for similar complaints in the past. Of note, the patient has been
admitted for similar presentation on 11/24/2023, 11/14/2023, 10/16/2023, 10/02/23, 07/19/2023, 06/20/23, 05/04/23.
Assessment/Plan:
- Acute on chronic hypoxic/hypercapnic respiratory failure: at Baseline
Oxygenation improved, currently resting at room air comfortably. This is improved from his prior baseline.
Soft and bite-size diet recommended by speech therapy to avoid risk of aspiration.
Patient would benefit from the use of BiPAP but it is likely that the patient will not be compliant
- Acute COPD exacerbation: at baseline
Receives azithromycin Monday, Monday, Monday chronic
Patient should be discharged on ICS/LAMA/LABA for ongoing COPD with repeat exacerbation
Pulmonology should see this patient in the outpatient setting for repeat PFTs
- Peripheral edema: Stable
No DVT noted on Doppler ultrasound.
- Type 2 diabetes mellitus with hyperglycemia/hypoglycemia: Stable
Her most recent HbA1c was 7.3% in November
Current glucose is 60 in the morning, 18 units of insulin glargine given, and 7 units of insulin aspart given
Appreciate diabetes management consultation
Home meds resumed
- Bicytopenia: Monitoring
Unclear etiology of leukopenia and anemia.
Recommend outpatient follow-up.
- Hypothyroid
Continue levothyroxine
- GERD
Continue PPI
- BPH
Continue Flomax
-Schizophrenia
Continue seroquel and olanzapine.
Appreciate Psychiatry input
Full code
Dispo - He is a resident of [facility]. Medically stable for discharge. Awaiting assessment from the state and bed availability for rehab. Will move forward with discharge once discharge planning complete.
Anticipated Discharge: Within 24 hours
Subjective/Interval History
-
Date of Service: December 27, 2023
Met with patient at the bedside. Overall, he is doing well and his status is unchanged since yesterday. He hopes to leave in the near future and believes that he is ready to go home.
Objective Data
-
Vital Signs:
Vital Signs
Temp Pulse Resp BP Pulse Ox
97.8 F 99 16 155/93 95
12/26/23 23:05 12/26/23 23:05 12/26/23 23:05 12/26/23 23:05 12/26/23 23:05
I&O
12/26/23 12/27/23 12/28/23
06:59 06:59 06:59
Intake Total 3420 / 3420 1979 / 1979
Output Total 1375 / 1375 550 / 550
Balance 2044 / 2044 1430 / 1430
Review of Systems
-
History Source: Patient
Constitutional: Reports No Symptoms
EENT: Reports No Symptoms Reported
Respiratory: Reports No Symptoms
Cardiac: Reports No Symptoms
Abdomen/GI: Reports No Symptoms
Breast: Reports No Symptoms
Genitourinary: Reports No Symptoms
Musculoskeletal: Reports No Symptoms
Skin: Reports No Symptoms
Neuro: Reports No Symptoms
Endocrine: Reports No Symptoms
Physical Exam
-
General: Well Developed, Well Nourished, No Apparent Distress and Comfortable
HEENT: Normocephalic, Atraumatic and Moist Mucous Membranes
Respiratory: Decreased Breath Sounds (Decreased breath sounds at the bases bilaterally)
Cardiac: Regular Rhythm
Breast: Deferred by me
GI: Soft, Nontender, Nondistended and Normal Bowel Sounds
Genito-urinary: Deferred by me
Musculoskeletal: No Clubbing, No Cyanosis and No Edema
Skin: Warm and Dry
Neuro: Awake, Alert, Oriented and AO x 3
--- NOTE | 2023-12-27 07:12 | PN.DE.MGMTRT ---
Insulin Management
- -
12/27/2023: Diabetes management Follow up:
Patient admitted with Hypoxia due to COPD exacerbation, from [facility] where he resides. Pt was treated with IV steroids with subsequent Hyperglycemia. PMH: Developmental delay, Schizophrenia, HTN, hypothyroid, COPD on 3 to 4 L, epilepsy, GERD,
BPH, glaucoma, left eye vision loss and T2DM. Prior to admission his diabetes regimen included Lantus 18 units, Januvia 100 mg daily and Metformin 1000 mg BID with sliding scale Novolin R. Recent A1C 7.3% on 11/27, Cr 0.5, eGFR >60. Pt states that
Crystal at the group monitors his blood sugars and gives him his insulin.
Patient is awake, A/O to self with some confusion, sitting up in chair, offers no complaints, able to discuss diabetes mgt.
Pt was weaned off steroids 12/23, glucose improved over last 2 days, 103 to 108. Fasting &$& this AM.
AC NovoLog stopped 12/24, glucose range 93 to 157 requiring no corrective insulin. Patient glucose 5pm 59, will reduce AM lantus to 15 units and continue outpatient regimen; Januvia 100 mg daily, Metformin 1000 mg BID.
Will follow for further needed adjustments.
Meds at Discharge: Januvia 100 mg daily, Metformin 1000 mg BID and Lantus 15 units daily
Diabetes History
- -
Type of Diabetes: 2
Pre-Admission Diabetes Regimen
Insulin Pump Settings
IP Diabetes Regimen
12/26/23 12/26/23 12/26/23
07:32 11:33 17:16
POC Glucose 93 107 H 59 L
12/26/23 12/26/23 12/26/23
17:39 18:15 20:15
POC Glucose 63 L 94 233 H
12/26/23 12/27/23
21:30 02:48
POC Glucose 212 H 157 H
Meal type: Lunch
Meal type: Breakfast
Amount consumed: 100%
Amount consumed: 100%
Patient Education
[2023-12-27 07:45] VITALS: BP 145/86
[2023-12-27] MEDS: ZITHROMAX 250 MG PO (08:31)
[2023-12-27] MEDS: PROTONIX 40 MG PO (08:32)
[2023-12-27] MEDS: LIPITOR 20 MG PO (08:32)
[2023-12-27] MEDS: DEPAKOTE (12 HR RELEASE) 1000 MG PO (08:32)
[2023-12-27] MEDS: VITAMIN B-12 500 MCG PO (08:32)
[2023-12-27] MEDS: GLUCOPHAGE 1000 MG PO ×2 (08:33→16:53)
[2023-12-27] MEDS: DEPAKOTE (12 HR RELEASE) 250 MG PO (08:33)
[2023-12-27] MEDS: PEPCID 20 MG PO (08:33)
[2023-12-27] MEDS: JANUVIA 100 MG PO (08:33)
[2023-12-27] MEDS: CARDIZEM CD 120 MG PO (08:37)
[2023-12-27] MEDS: NORVASC 5 MG PO (08:37)
[2023-12-27] MEDS: LANTUS 0.15 UNITS SC (08:38)
[2023-12-27] MEDS: NOVOLOG FLEXPEN-LOW RESISTANCE SC (08:39)
[2023-12-27 08:40] LABS: Glucose - Point of Care 137 mg/dl (70-99)
[2023-12-27 11:50] LABS: Glucose - Point of Care 245 mg/dl (70-99)
[2023-12-27] MEDS: NOVOLOG FLEXPEN-LOW RESISTANCE 2 UNITS SC (12:01)
--- NOTE | 2023-12-27 12:25 | CM ---
Addendum entered by Celina Gee RN 12/27/23 15:50:
Patient's sister Berwyn called CM. She was updated and agreed on discharge plan to [facility] today
Addendum entered by Celina Gee RN 12/27/23 13:58:
[facility] has accepted the patient for short term rehab.
Call report to: [phone]
Fax report to: [phone]
Medical necessity and transport forms on chart.
Original Note:
Reviewed the chart notes and spoke with the patient's sister via telephone. IMM reviewed. Sister had no questions with regards to the letter. The patient's sister will call CM back later today after work to be informed of which facility accepted
the patient. CM continues to be available to patient/family and is monitoring medical plan for needs at discharge.
Plan: Discharge to SNF/rehab once bed is confirmed at [place] or [facility].
[2023-12-27 15:00] VITALS: BP 153/72
--- NOTE | 2023-12-27 15:09 | W.DCSUMMARY ---
Discharge Summary
Discharge Data
Date of Admission: 12/14/23
Date of Discharge: 12/27/23
-
Pending Results: No
Hospital Course
Patient is a 63-year-old male with a previous history of developmental delay, COPD, schizophrenia, diabetes who presented to [facility] ER from a half-way for evaluation of shortness of breath with hypoxemia. Notably, his pulse ox was in
the 80s despite being given 4 L of oxygen via nasal cannula. EMS was called and he was placed on 15 L nonrebreather mask. Patient has been seen in [facility] ER for similar complaints in the past. Of note, the patient had been admitted for
similar presentation on 11/24/2023, 11/14/2023, 10/16/2023, 10/02/23, 07/19/2023, 06/20/23, 05/04/23. Chest x-ray was reviewed showing no pulmonary edema. Patient was placed on BiPAP with with nebulizers through the BiPAP. Patient improved after he was
given steroids and nebulizers on BiPAP. Patient was admitted for Acute on chronic hypoxic respiratory failure.
Patient was known to have a history of chronic CO2 retention. He refused CPAP and does not use it in the outpatient setting. Echocardiogram conducted showed normal biventricular size and systolic function without regional wall motion abnormality.
There was mild aortic stenosis and there was mild to moderate tricuspid regurgitation. Patient received IV diuretics and slowly made improvements in his oxygenation. As the COPD flare slowly resolved IV steroids were discontinued by pulmonology.
The patient returned to his baseline and was ready for discharge approximately on 12/19/2023. The recommendations were to continue low-dose azithromycin for anti-inflammatory therapy, aspiration precautions, mucolytic's, and a prednisone taper.
Unfortunately, his original residence the [facility] was unable to accept him due to ongoing concerns about him decompensating in the outpatient setting. Numerous days of discharge planning occurred in order to find an appropriate solution for
him to get adequate nursing/SNF placement prior to again moving to a long-term living arrangement such as [facility]. Fortunately, placement was found at [facility] for the patient and discharge planning was completed.
The patient has reached maximal benefit from this hospital stay and is appropriate for discharge at the present time. There are no barriers that would impede this patient from being discharged from the hospital. The patient is appropriate to be
followed up in the outpatient setting by his primary care provider. 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
Discharge Plan
-
Patient Disposition: [facility]/SNF
Discharge Diagnosis/Procedures: Acute on Chronic/hypercapnic respiratory failure and COPD exacerbation
Condition: Good
Diet: No restrictions
Activity: No restrictions
Driving Restrictions: As prior to admission
Referrals:
Troy Daly MD [Active] - in two to three weeks
Rubio Edwards DO [Family Provider] - in one to two weeks
Prescriptions:
Continued
fexofenadine 180 MG tablet
180 mg PO DAILY
levothyroxine 200 MCG tablet
200 mcg PO DAILY@0600
acetaminophen [Tylenol] 325 mg Tablet
650 mg PO Q4HPRN PRN (Reason: mild pain)
atorvastatin 20 mg tablet
20 mg PO DAILY
polyethylene glycol 3350 [Miralax] 17 gram Powder In Packet
17 g PO DAILYPRN PRN (Reason: constipation)
divalproex 250 mg Tablet,Delayed Release (Dr/Ec)
250 mg PO BID@799,1999
Patient Comments:
11/22/2023: taken w/ 1000mg = 1250mg
divalproex 500 mg Tablet,Delayed Release (Dr/Ec)
1,000 mg PO BID@799,1999
Patient Comments:
11/22/2023: taken w/ 250mg = 1250mg
cyanocobalamin (vitamin B-12) 500 mcg Tablet
500 mcg PO DAILY
albuterol sulfate 90 mcg/actuation Hfa Aerosol Inhaler
2 puff INHALATION R Q4HPRN PRN (Reason: copd)
ipratropium-albuterol 0.5 mg-3 mg(2.5 mg base)/3 mL Solution For Nebulization
3 ml INHALATION R BID
Januvia 100 mg Tablet
100 mg PO DAILY
Acid Gone Antacid 95-358 mg/15 mL Suspension
15 ml PO DAILYPRN PRN (Reason: gerd)
ipratropium-albuterol 0.5 mg-3 mg(2.5 mg base)/3 mL Solution For Nebulization
3 ml INHALATION R Q4HPRN PRN (Reason: sob)
dextromethorphan-guaifenesin [Omaira-Tussin DM] 10-100 mg/5 mL Liquid
10 ml PO Q4HPRN PRN (Reason: cough)
dextromethorphan-guaifenesin [Tussin DM] 10-100 mg/5 mL Liquid
10 ml PO Q6HPRN PRN (Reason: cough)
amlodipine [Norvasc] 5 mg Tablet
5 mg PO DAILY
tamsulosin [Flomax] 0.4 mg Capsule
0.4 mg PO HS
omeprazole 20 mg Capsule,Delayed Release(Dr/Ec)
20 mg PO DAILY
diltiazem HCl 120 mg Capsule,Extended Release 24hr
120 mg PO DAILY
olanzapine 15 mg Tablet
30 mg PO HS
Novolin R FlexPen 100 unit/mL (3 mL) Insulin Pen
1 sliding scale dose SC ACHS
Rx Instructions:
100-150=3units, 151-200=6units, 201-250=9units, 251-300=12units, 301-350=14units
quetiapine [Seroquel] 50 mg Tablet
50 mg PO HS
metformin 1,000 mg Tablet
1,000 mg PO BID
insulin glargine [Lantus Solostar U-100 Insulin] 100 unit/mL (3 mL) Insulin Pen
18 unit SC DAILY
guaifenesin [Mucus Relief ER] 600 mg Tablet Extended Release 12hr
600 mg PO [id number] PRN (Reason: cough/conjestion)
azithromycin 250 mg Tablet
250 mg PO MOWEFR@0800
famotidine [Pepcid] 20 mg Tablet
20 mg PO DAILY
Thick-It Powder
1 ea PO DAILY
Discharge Orders:
Discharge Patient (As Directed); Ordered 12/27/23
Ordered By: Berkley Mensah
Discharge Date and Time
Print Language: HUNGARIAN
[2023-12-27 16:30] LABS: Glucose - Point of Care 185 mg/dl (70-99)
[2023-12-27] MEDS: LOVENOX 40 MG SC (16:54)
[2023-12-27] MEDS: NOVOLOG FLEXPEN-LOW RESISTANCE 1 UNITS SC (16:55)
== END 2023-12-27 19:30 | DRG 189 ==
LOC: 2 NORTH 12:53
PROVIDERS: Internal Medicine Critical Care Medicine; Physician Assistant; ADMITTING PHYSICIAN Internal Medicine; ATTENDING PHYSICIAN Hospitalist; CONSULT PHYSICIAN Internal Medicine; CONSULT PHYSICIAN Psychiatry & Neurology Psychiatry; EMERGENCY PHYSICIAN Student in an Organized Health Care Education/Training Program; FAMILY PHYSICIAN Family Medicine
PROC: 5A09357 Assistance with Respiratory Ventilation, Less than 24 Consecutive Hours, Continuous Positive Airway Pressure (ICD-10-PCS; 2023-12-14)
DX: J96.21 Acute and chronic respiratory failure with hypoxia (principal); J44.1 Chronic obstructive pulmonary disease with (acute) exacerbation; J96.22 Acute and chronic respiratory failure with hypercapnia; G40.909 Epilepsy, unspecified, not intractable, without status epilepticus; F20.9 Schizophrenia, unspecified; K21.9 Gastro-esophageal reflux disease without esophagitis; I10 Essential (primary) hypertension; E03.9 Hypothyroidism, unspecified; N40.0 Benign prostatic hyperplasia without lower urinary tract symptoms; H40.9 Unspecified glaucoma; H54.8 Legal blindness, as defined in USA; E11.65 Type 2 diabetes mellitus with hyperglycemia; R13.12 Dysphagia, oropharyngeal phase; D64.9 Anemia, unspecified; G47.33 Obstructive sleep apnea (adult) (pediatric); R62.50 Unspecified lack of expected normal physiological development in childhood; Z79.890 Hormone replacement therapy; Z79.84 Long term (current) use of oral hypoglycemic drugs; Z79.4 Long term (current) use of insulin; Z11.52 Encounter for screening for COVID-19; Z87.891 Personal history of nicotine dependence; Z86.16 Personal history of COVID-19; Z79.899 Other long term (current) drug therapy; Z99.81 Dependence on supplemental oxygen
CPT/HCPCS: 71045; 71046; 80048; 80053; 80164; 82805; 82962; 83605; 83735; 83880; 84100; 84145; 84484; 85025; 85027; 87040; 87502; 87811; 92526; 92610; 93005; 93306; 93971; 94640; 94660; 96361; 96374; 96375; 97110; 97116; 97163; 97167; 97530; 97535; 99291

== ENCOUNTER 2024-01-10 14:18 | Inpatient (IN) | payer MEDICARE, OTHER, SELFPAY ==
[2024-01-10] VITALS (18 sets, daily range): BP systolic 106–142; BP diastolic 63–109; BMI 29.6; BMI 29.3
[2024-01-10 11:10] LABS: Hematocrit 35.5 % (39.0-52.0); Hemoglobin 11.3 g/dL (13.0-18.0); Mean Corp Hgb Conc. 31.8 g/dL (33.0-37.0); Mean Corpuscular Hgb 33.4 pg (27.0-31.0); Mean Platelet Volume 9.8 fL (7.4-10.4); Platelet Count 156 10^3/uL (130-400); Red Blood Cell Count 3.38 10^6/uL (4.70-6.10); White Blood Cell Count 3.4 10^3/uL (4.8-10.8)
[2024-01-10 11:20] LABS: ALT (SGPT) 16 U/L (0-50); AST (SGOT) 16 U/L (17-59); Albumin 3.1 g/dl (3.5-5.0); Alkaline Phosphatase 53 U/L (38-126); Blood Urea Nitrogen 14 mg/dl (9-20); Calcium 8.4 mg/dl (8.4-10.2); Carbon Dioxide 38 mmol/L (22-30); Chloride 95 mmol/L (98-107); Estimated Creatinine Clearance 120 ml/min; Glucose 174 mg/dl (70-99); Potassium 4.7 mmol/L (3.5-5.1); Sodium 139 mmol/L (135-145); Total Bilirubin 0.2 mg/dl (0.2-1.3); Total Protein 5.2 g/dl (6.3-8.2); eGFR > 60.00
[2024-01-10 11:29] LABS: Absolute Neutrophils -Man Diff 2.1 10^3/uL (1.4-6.5); Anisocytosis 1+; Band Neutrophils 0 % (0-3); Eosinophils 1 % (0-6); Lymphocytes 16 % (20-51); Metamyelocytes 1 % (-); Monocytes 19 % (2-9); Normal RBC Morphology No; Platelets Checked Yes; Segmented Neutrophils 63 % (42-75)
[2024-01-10 11:30] LABS: NT-proBNP 80.7 pg/ml; Total Cells Counted 100
--- NOTE | 2024-01-10 11:43 | ED.GENMED ---
History of Present Illness
General
Chief Complaint: Breathing Problem
Source: patient
Exam Limitations: other (History of mental illness, memory problems)
Time Seen by Provider: 01/10/24 11:00
Nursing documentation reviewed up to this point in time: agreed with
History of Present Illness
History of Present Illness:
63-year-old male with past medical history of MR, seizure disorder developmental delay, COPD oxygen dependent 2 L nasal cannula baseline diabetes hypothyroidism presenting to the emergency department today with concerns of shortness of breath while
at [facility] when he was assessed with morning vital signs. Pulse ox was in the 70s he appeared to be in somewhat distress when breathing. Was placed on 4 L with some improved then required a nonrebreather with EMS improving to 100. Denies any
specific chest pain has noted shortness of breath today though patient is not a great historian due to his chronic medical and mental illness.
Past History
Past History
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 Limited vision on left eye. )
ED Past Surgical History: None
Social History
Tobacco: Former smoker
Alcohol: None
Drug: None
Personal: Single
Living: senior living
Employment: Disabled
Family History
Family History: Other (Reviewed and noncontributory)
Review of Systems
Review of Systems
Allergies reviewed?: Yes
All Other Systems: ROS reviewed and negative except as documented in HPI and ROS
Phy Exam
Physical Exam
Physical Exam:
GENERAL: Alert , in no apparent distress
EYE: pupils equal and reactive
NECK: Supple, no significant adenopathy.
ENT: o/p clr, mmm.
CARDIAC: Regular rate and rhythm .
LUNGS: Diminished lung sounds with forced exhalation wheezing diffusely.
ABDOMEN: Soft, without focal tenderness, no r/g, no cvat
NEUROLOGICAL: Alert and oriented, no focal neuro deficits
SKIN: Warm and dry, skin intact.
MUSCULOSKELETAL: No edema, well perfused.
PSYCH: Normal and appropriate interaction.
Scores
Heart Failure Risk
Heart Failure Risk Score: Not Applicable
Course
Orders/Labs/Results
Orders:
Orders
01/10/24 10:51
CXR2 [CR Chest - 2 Views ] Urgent
Comment:
Reason For Exam: shortness of breath
01/10/24 10:53
Complete Blood Count/With Diff Urgent
Comprehensive Metabolic Panel Urgent
Manual Differential Urgent
NT-proBNP Urgent
01/10/24 11:01
EKG [Electrocardiogram (*1)] Urgent
Reason for Study: Shortness of Breath
EKG- Treatment ONCE
01/10/24 11:37
Dexamethasone Sod Phosphate [Decadron] 10 mg IV NOW STA
Ipratropium/Albuterol Sulfate [Duoneb] 3 ml INH R NOW ONE
01/10/24 13:30
Azithromycin 500 mg/250 ml [Zithromax Infusion] 500 mg in 250 ml IV NOW
CefTRIAXone [Rocephin] 2,000 mg IV NOW STA
01/10/24 13:48
Admit/Transfer Patient As Directed
Co-Sign Provider:
Level of Care: Inpatient admission
Assign to:: IMU- Intermediate Care
Physician / Group: melissa
Diagnosis: COPD exacerbation
Reason for Hospitalization: COPD exacerbation
Expected length of stay greater than two midnights?: Yes
ELOS- Estimated Length of Stay in days: 2
I certify the patient meets the requirements for IP care: Yes
PRN Pain Medication Management As Directed
May give lesser potent ordered pain med per pt: Yes
preference::
Protocol:: Medication orders for pain may be administered in a
manner that supports deferring to patient preference
when the pt is:
- Requesting an ordered lesser potent pain medication.
Least to most potent pain medications are defined
as: acetaminophen < NSAID < tramadol < opioids
(morphine, oxycodone, hydromorphone).
- Requesting a lesser dose of the same medication IF
ORDERED.
- Requesting a less intrusive route of administration
if both routes are prescribed by the provider (PO <
IV).
01/10/24 13:49
Code Status As Directed
Resuscitation Status: Full Code
01/10/24 13:52
COVID-19 Antigen Urgent
Source: Nasal Swab
Respiratory Culture/Gram Stain Urgent
TUSHAR Source: Sputum
Specimen Description:
Date Specimen was Collected: 01/10/24
Time Specimen was Collected: 13:54
01/10/24 13:54
Dextrose 50%-Water [Dextrose 50% Syringe] 12.5 grams IV [id number] PRN
Glucagon [GlucaGen] 1 mg IM PRN PRN
Bedside Glucose Monitoring As Directed
Frequency: AC&HS
Additional Instructions:: Change to q6h if pt on TPN, tube feeding or not eating
01/10/24 16:30
Insulin Aspart Corrective Low [Novolog Flexpen-Low Resistance] See Protocol SC AC
01/11/24 06:00
Glycohemoglobin (HgbA1c) IN AM
Abnormal Lab Results
01/10/24
10:53
WBC 3.4 L 10^3/uL
(4.8-10.8)
RBC 3.38 L 10^6/uL
(4.70-6.10)
Hgb 11.3 L g/dL
(13.0-18.0)
Hct 35.5 L %
(39.0-52.0)
MCV 105.0 H fL
(80.0-94.0)
MCH 33.4 H pg
(27.0-31.0)
MCHC 31.8 L g/dL
(33.0-37.0)
RDW 15.0 H %
(11.5-14.5)
Lymphocytes (Manual) 16 L %
(20-51)
Monocytes (Manual) 19 H %
(2-9)
Chloride 95 L mmol/L
(98-107)
Carbon Dioxide 38 H mmol/L
(22-30)
Creatinine 0.4 L mg/dL
(0.7-1.3)
Glucose 174 H mg/dl
(70-99)
AST 16 L U/L
(17-59)
Total Protein 5.2 L g/dl
(6.3-8.2)
Albumin 3.1 L g/dl
(3.5-5.0)
01/10/24 10:53
01/10/24 10:53
Vital Signs
Initial and Last Documented VS:
Initial Vital Signs
BP
132/75
01/10/24 10:47
Last Documented Vital Signs
Temp Pulse Resp BP Pulse Ox
98.1 F 85 27 118/71 99
01/10/24 10:57 01/10/24 12:45 01/10/24 12:45 01/10/24 12:39 01/10/24 12:45
MDM/Problems Addressed
MDM/Problems Addressed:
63-year-old male presenting to the emergency department today with concerns shortness of breath decreased pulse ox while at the nursing facility on his normal 2 L nasal cannula. Upon arrival pulse ox in the 90s with 5 L nasal cannula patient in no
obvious distress patient does have significant diminished lung sounds and wheezing. Patient started on DuoNebs and given steroids. Patient had some improvement with air movement now with large amount of wheezing last diminished lung sounds.
Patient was switched back to 2 L nasal cannula with a quick drop in oxygen saturation to the low 80s patient was placed back on 5 L. Concerning the ongoing symptoms plan to admit for further steroid, nebulizer treatment as well as monitoring.
Additionally there was potential findings of worsening consolidation possibly consistent with pneumonia concerning this initial dose of antibiotics were given.
*Critical Care Note
Total Time (30-74mins, 75-104mins- exclusive of procedures): Not Applicable
ED Attending Note
-
Portions of this chart may have been created with voice recognition software.� Occasional wrong word or��sound alike� substitutions may have occurred due to the inherent limitations of voice recognition software.
Discharge Plan
Departure
Patient Disposition: Admit
Date of Disposition: 01/10/24
Time of Disposition: 14:03
Admit to: Telemetry
Admit to doctor: Melissa
Presentation/result/management discussed w/ accepting MD/DO: Hospitalist
Patient with high blood pressure during this ER visit?: No
Condition: Good
Covid-19: Not Applicable
Discharge Problem:
COPD exacerbation, Pneumonia
Prescriptions:
No Action
levothyroxine 200 MCG tablet
200 mcg PO DAILY@0600
acetaminophen [Tylenol] 325 mg Tablet
650 mg PO Q4HPRN PRN (Reason: mild pain)
atorvastatin 20 mg tablet
20 mg PO HS
polyethylene glycol 3350 [Miralax] 17 gram Powder In Packet
17 g PO DAILYPRN PRN (Reason: constipation)
divalproex 250 mg Tablet,Delayed Release (Dr/Ec)
250 mg PO BID@00,1999
Patient Comments:
11/22/2023: taken w/ 1000mg = 1250mg
divalproex 500 mg Tablet,Delayed Release (Dr/Ec)
1,000 mg PO BID@0800,1999
Patient Comments:
11/22/2023: taken w/ 250mg = 1250mg
cyanocobalamin (vitamin B-12) 500 mcg Tablet
500 mcg PO DAILY
albuterol sulfate 90 mcg/actuation Hfa Aerosol Inhaler
2 puff INHALATION R Q4HPRN PRN (Reason: copd)
ipratropium-albuterol 0.5 mg-3 mg(2.5 mg base)/3 mL Solution For Nebulization
3 ml INHALATION R BID
Januvia 100 mg Tablet
100 mg PO DAILY
Acid Gone Antacid 95-358 mg/15 mL Suspension
15 ml PO DAILYPRN PRN (Reason: gerd)
ipratropium-albuterol 0.5 mg-3 mg(2.5 mg base)/3 mL Solution For Nebulization
3 ml INHALATION R Q4HPRN PRN (Reason: sob)
dextromethorphan-guaifenesin [Omaira-Tussin DM] 10-100 mg/5 mL Liquid
10 ml PO Q4HPRN PRN (Reason: cough)
dextromethorphan-guaifenesin [Tussin DM] 10-100 mg/5 mL Liquid
10 ml PO Q6HPRN PRN (Reason: cough)
amlodipine [Norvasc] 5 mg Tablet
5 mg PO DAILY
tamsulosin [Flomax] 0.4 mg Capsule
0.4 mg PO HS
omeprazole 20 mg Capsule,Delayed Release(Dr/Ec)
20 mg PO DAILY
diltiazem HCl 120 mg Capsule,Extended Release 24hr
120 mg PO DAILY
olanzapine 15 mg Tablet
20 mg PO HS
Novolin R FlexPen 100 unit/mL (3 mL) Insulin Pen
1 sliding scale dose SC ACHS
Rx Instructions:
100-150=3units, 151-200=6units, 201-250=9units, 251-300=12units, 301-350=14units
quetiapine [Seroquel] 50 mg Tablet
50 mg PO HS
metformin 1,000 mg Tablet
1,000 mg PO BID
insulin glargine [Lantus Solostar U-100 Insulin] 100 unit/mL (3 mL) Insulin Pen
18 unit SC DAILY
guaifenesin [Mucus Relief ER] 600 mg Tablet Extended Release 12hr
600 mg PO [id number] PRN (Reason: cough/conjestion)
azithromycin 250 mg Tablet
250 mg PO MOWEFR@0800
Thick-It Powder
1 ea PO DAILY
furosemide [Lasix] 20 mg Tablet
20 mg PO DAILY
Referrals:
Rubio Edwards DO [Family Provider] -
Interventions
Interventions:
*Risk Screen - Suicide Last Done: 01/10/24 10:57
*General Assessment Last Done: 01/10/24 10:57
*Neglect/Abuse Screening Last Done: 01/10/24 10:57
ED- Fall Risk Assessment Last Done: 01/10/24 10:57
*ED COVID-19 Vaccine History Last Done: 01/10/24 10:57
ED- Cardiac Assessment Last Done: 01/10/24 10:57
ED- Pulmonary Assessment Last Done: 01/10/24 10:57
Discharge Date and Time
Print Language: ROMANSH
[2024-01-10] MEDS: DUONEB 3 ML INH (12:26)
[2024-01-10] MEDS: DECADRON 10 MG IV (12:26)
--- NOTE | 2024-01-10 13:13 | EDRN ---
Dat CANAS currently at the pts bedside
--- NOTE | 2024-01-10 13:52 | HPS.HSE ---
Addendum entered and electronically signed by Sasha Allen MD 01/10/24 13:57:
Held Lasix. Held diltiazem since on amlodipine.
Original Note:
Family Physician
-
Family Physician: Rubio Edwards
Chief Complaint
-
shortness of breath
History of Present Illness
63-year-old male past medical history of chronic hypoxemic/hypercapnic respiratory failure, COPD on 2 L baseline, peripheral edema, type 2 diabetes, hypothyroidism, GERD, BPH, schizophrenia, presenting with shortness of breath while at [facility].
Pulse ox was in the 70s. He was in respiratory distress. He was placed on 4 L with some improvement and then required nonrebreather with improvement in oxygen saturation. Denies chest pain. He has productive cough. Has chills.
He denies smoking or alcohol use currently.
Medical History
Past Medical History
Past Medical History: Reports Other ( chronic hypoxemic/hypercapnic respiratory failure, COPD on 2 L baseline, peripheral edema, type 2 diabetes, hypothyroidism, GERD, BPH, schizophrenia)
Past Surgical History: Reports None
Social History
Tobacco: Non-smoker
Alcohol: None
Drug: None
Family History
Family History: Not pertinent
Allergies / Home Medications
Allergies reflects when Allergies were last updated in [facility].
Home Medications with original date entered in [facility]
Allergy/Medication List:
Allergies
Allergy/AdvReac Type Severity Reaction Status Date / Time
No Known Allergies Allergy Verified 11/12/23 16:32
Home Medications
levothyroxine 200 mcg tablet 200 mcg PO DAILY@0600 Thyroid 07/08/19
acetaminophen 325 mg tablet (Tylenol) 650 mg PO Q4HPRN PRN mild pain 04/24/23
atorvastatin 20 mg tablet 20 mg PO HS High Cholesterol 04/24/23
polyethylene glycol 3350 17 gram oral powder packet (Miralax) 17 g PO DAILYPRN PRN constipation 04/25/23
cyanocobalamin (vitamin B-12) 500 mcg tablet 500 mcg PO DAILY Supplement 06/17/23
divalproex 250 mg tablet,delayed release 250 mg PO BID@0800,1999 mental health 06/17/23
divalproex 500 mg tablet,delayed release 1,000 mg PO BID@08,1999 mental health 06/17/23
albuterol sulfate 90 mcg/actuation aerosol inhaler 2 puff inhalation R Q4HPRN PRN copd 09/13/23
ipratropium 0.5 mg-albuterol 3 mg (2.5 mg base)/3 mL nebulization soln 3 ml inhalation R BID Lung/Breathing Issues 09/27/23
sitagliptin phosphate 100 mg tablet (Januvia) 100 mg PO DAILY Diabetes 10/14/23
aluminum hydrox-magnesium carb 95 mg-358 mg/15 mL oral suspension (Acid Gone Antacid) 15 ml PO DAILYPRN PRN gerd 11/12/23
amlodipine 5 mg tablet (Norvasc) 5 mg PO DAILY Blood Pressure 11/12/23
dextromethorphan-guaifenesin 10 mg-100 mg/5 mL oral liquid (Omaira-Tussin DM) 10 ml PO Q4HPRN PRN cough 11/12/23
dextromethorphan-guaifenesin 10 mg-100 mg/5 mL oral liquid (Tussin DM) 10 ml PO Q6HPRN PRN cough 11/12/23
diltiazem HCl 120 mg capsule,extended release 24 hr 120 mg PO DAILY Heart Disease/Condition 11/12/23
insulin regular human 100 unit/mL (3 mL) subcutaneous pen (Novolin R FlexPen) 1 sliding scale dose SC ACHS Diabetes 11/12/23
ipratropium 0.5 mg-albuterol 3 mg (2.5 mg base)/3 mL nebulization soln 3 ml inhalation R Q4HPRN PRN sob 11/12/23
olanzapine 15 mg tablet 20 mg PO HS Mental Health/Anxiety 11/12/23
omeprazole 20 mg capsule,delayed release 20 mg PO DAILY Gastrointestinal Issue 11/12/23
quetiapine 50 mg tablet (Seroquel) 50 mg PO HS Mental Health/Anxiety 11/12/23
tamsulosin 0.4 mg capsule (Flomax) 0.4 mg PO HS Urinary Issue 11/12/23
guaifenesin 600 mg tablet, extended release 12 hr (Mucus Relief ER) 600 mg PO [id number] PRN cough/conjestion 11/22/23
insulin glargine 100 unit/mL (3 mL) subcutaneous pen (Lantus Solostar U-100 Insulin) 18 unit SC DAILY Diabetes 11/22/23
metformin 1,000 mg tablet 1,000 mg PO BID Diabetes 11/22/23
azithromycin 250 mg tablet 250 mg PO MOWEFR@0800 Infection 12/14/23
starch (thickening) (Thick-It oral powder) 1 ea PO DAILY 12/14/23
furosemide 20 mg tablet (Lasix) 20 mg PO DAILY 01/10/24
Review of Systems
-
History Source: Patient
A 12 point ROS was completed and negative except as noted: Yes
Constitutional: Reports No Symptoms
EENT: Reports No Symptoms
Respiratory: Reports See HPI
Cardiac: Reports See HPI
Abdomen/GI: Reports No Symptoms
: Reports No Symptoms
Musculoskeletal: Reports No Symptoms
Skin: Reports No Symptoms
Neurological: Reports No Symptoms
Endocrine: Reports No Symptoms
Hematologic/Lymphatic: Reports No Symptoms
Psych: Reports No Symptoms
Physical Exam
Vital Signs
Vital Signs
Temp Pulse Resp BP Pulse Ox
98.1 F 85 27 118/71 99
01/10/24 10:57 01/10/24 12:45 01/10/24 12:45 01/10/24 12:39 01/10/24 12:45
Physical Exam
General: Well Developed, Well Nourished and No Apparent Distress
HEENT: NormoCephalic, Moist mucous membranes and Atraumatic
Respiratory: Wheezes
Cardiac: S1/S2 and Regular Rhythm; No Murmur or Rub
GI: Soft, Non Tender, Non Distended and Normal Bowel Sounds; No Organomegaly
Rectal: Deferred by Provider
Musculoskeletal: No Clubbing, No Cyanosis and No Edema
Skin: No Rash
Neuro: Nonfocal/grossly intact
Laboratory Results
-
01/10/24 10:53
01/10/24 10:53
Laboratory Results
Total Bilirubin 0.2 mg/dl (0.2-1.3) 01/10/24 10:53
AST 16 U/L (17-59) L 01/10/24 10:53
ALT 16 U/L (0-50) 01/10/24 10:53
Alkaline Phosphatase 53 U/L (38-126) 01/10/24 10:53
Data Reviewed
-
Lab Data: Labs Reviewed by me
Old Records: Reviewed
Impression/Plan
-
IMPRESSION:
PLAN:
# Acute COPD exacerbation/possible pneumonia
-Bilateral expiratory wheezing on examination
-Currently on 6 L oxygen
-Chronic hypoxemic/hypercapnic respiratory failure secondary to COPD on 2 L baseline
-Chest x-ray shows mild right basilar atelectasis and/or pneumonia
-Sputum culture
-Check COVID
-Dexamethasone 4 mg every 12
-DuoNebs every 6 hours
-Ceftriaxone/azithromycin
-Mucinex
Chronic peripheral edema
Mild to moderate tricuspid regurgitation
Type 2 diabetes
-Hold metformin, Januvia
-Insulin sliding scale
-Continue Lantus 18 units
Hypothyroidism
-Continue levothyroxine
Essential hypertension
-Continue amlodipine
GERD
-Continue omeprazole
BPH
-Continue tamsulosin
Schizophrenia
-Continue Seroquel, olanzapine, Depakote
Hyperlipidemia
-Continue statin
Full code
DVT prophylaxis�heparin
Regular diet
[2024-01-10] MEDS: ROCEPHIN 2000 MG IV (14:20)
[2024-01-10] MEDS: ZITHROMAX INFUSION 250 IV (14:21)
--- NOTE | 2024-01-10 14:54 | EDRN ---
the pt is resting in stretcher in the lowest position, side rails up x2, call mullins within reach, HOB elevated, no s/s of distress, VS WNL, the pt is currently still on 6L NC Sp02 96%, awaiting for a bed in IMU, the pt denies needing anything at this
time, will continue to monitor the pt closely
[2024-01-10 15:07] LABS: COVID-19 Antigen Positive (Negative)
--- NOTE | 2024-01-10 16:59 | EDRN ---
this RN called verbal report to the receiving IMU nurse
[2024-01-10 18:04] LABS: Glucose - Point of Care 183 mg/dl (70-99)
--- NOTE | 2024-01-10 18:14 | PTCARENOTE ---
Received patient on stretcher from ER with diagnosis COPD exacerbation and covid. Patient weaned to 3 liters nasal cannula upon arrival. Denying pain, in no signs of distress. Asking for hamburgers. Patient hallucinating, talking and using hand
gestures. He was stating that he is seeing shapes. Patient was unable to answer several admission questions. Due to covid isolation and hallucinations video monitoring in use at this time until safety assessed.
[2024-01-10] MEDS: NOVOLOG FLEXPEN-LOW RESISTANCE 1 UNITS SC (18:39)
[2024-01-10] MEDS: ProAIR HFA INHALER 2 PUFF INH (19:21)
[2024-01-10] MEDS: DEPAKOTE (12 HR RELEASE) 1000 MG PO (19:30)
[2024-01-10] MEDS: DEPAKOTE (12 HR RELEASE) 250 MG PO (19:30)
[2024-01-10] MEDS: DECADRON 4 MG IV (19:30)
[2024-01-10] MEDS: MUCINEX 1200 MG PO (19:30)
[2024-01-10] MEDS: HEPARIN 5000 UNITS SC (19:30)
--- NOTE | 2024-01-10 20:23 | PTCARENOTE ---
Pt with remote video monitoring in place for safety. Pt removed nasal cannula and SaO2 dropped to 78%. Pt recovered with replacement of cannula to 90%. Pt able to eat dinner with minimal assistance, but is edentulous, so softer diet may be ideal. Pt
denies difficulty.
[2024-01-10] MEDS: LIPITOR 20 MG PO (21:11)
[2024-01-10] MEDS: SEROQUEL 50 MG PO (21:11)
[2024-01-10] MEDS: FLOMAX 0.4 MG PO (21:11)
[2024-01-10] MEDS: ZYPREXA 20 MG PO (21:11)
[2024-01-10 23:30] LABS: Glucose - Point of Care 301 mg/dl (70-99)
[2024-01-11] VITALS (12 sets, daily range): BP systolic 119–151; BP diastolic 71–115
[2024-01-11] MEDS: NOVOLOG FLEXPEN 4 UNITS SC (00:30)
--- NOTE | 2024-01-11 00:44 | PTCARENOTE ---
Pt's bedtime blood sugar 301, SITE INTERPRETER ordered 4 units insulin STAT. Pt c/o hunger, requesting peanut butter sandwich. This RN reminded pt of the time and that the kitchen will reopen at 6:30. Pt encouraged to try to get some sleep. Pt continues to
remove nasal cannula frequently with SaO2 dropping each time. NC replaced by this RN. Medsitter remains in place for additional monitoring.
[2024-01-11 05:01] LABS: % Basophils 0.5 % (0-2); % Immature Granulocytes 1.4 % (0-0.5); % Monocytes 12.6 % (1.7-9.3); % Neutrophils 70.5 % (42.2-75.2); Absolute Lymphocytes 0.3 10^3/uL (1.2-3.4); Absolute Monocytes 0.3 10^3/uL (0.1-0.6); Absolute Neutrophils 1.5 10^3/uL (1.4-6.5); Blood Urea Nitrogen 16 mg/dl (9-20); Calcium 8.9 mg/dl (8.4-10.2); Carbon Dioxide 40 mmol/L (22-30); Chloride 93 mmol/L (98-107); Estimated Creatinine Clearance 120 ml/min; Glucose 195 mg/dl (70-99); Hematocrit 34.4 % (39.0-52.0); Hemoglobin 11.2 g/dL (13.0-18.0); Mean Corp Hgb Conc. 32.6 g/dL (33.0-37.0); Mean Corpuscular Hgb 33.5 pg (27.0-31.0); Mean Platelet Volume 10.1 fL (7.4-10.4); Nucleated Red Blood Cells % 0 % (-); Platelet Count 149 10^3/uL (130-400); Potassium 4.7 mmol/L (3.5-5.1); Red Blood Cell Count 3.34 10^6/uL (4.70-6.10); Red Cell Dist. Width 14.6 % (11.5-14.5); Sodium 137 mmol/L (135-145); White Blood Cell Count 2.1 10^3/uL (4.8-10.8); eGFR > 60.00
[2024-01-11] MEDS: SYNTHROID 200 MCG PO (05:10)
[2024-01-11] MEDS: DECADRON 4 MG IV ×3 (05:10→20:16)
[2024-01-11] MEDS: GAVISCON LIQUID 15 ML PO (06:19)
--- NOTE | 2024-01-11 06:22 | PTCARENOTE ---
Pt c/o reflux/indigestion, PRN medication given per MAR
[2024-01-11] MEDS: MUCINEX 1200 MG PO ×2 (07:37→20:16)
[2024-01-11] MEDS: VITAMIN B-12 500 MCG PO (07:37)
[2024-01-11] MEDS: DEPAKOTE (12 HR RELEASE) 250 MG PO ×2 (07:38→20:16)
[2024-01-11] MEDS: NORVASC 5 MG PO (07:38)
[2024-01-11] MEDS: DEPAKOTE (12 HR RELEASE) 1000 MG PO ×2 (07:38→20:16)
[2024-01-11] MEDS: PROTONIX 40 MG PO (07:38)
[2024-01-11] MEDS: LANTUS 0.18 UNITS SC (07:39)
[2024-01-11] MEDS: HEPARIN 5000 UNITS SC ×2 (07:39→20:17)
[2024-01-11] MEDS: NOVOLOG FLEXPEN-LOW RESISTANCE 2 UNITS SC (07:39)
[2024-01-11 07:49] LABS: Glucose - Point of Care 207 mg/dl (70-99)
[2024-01-11 08:21] LABS: Glycohemoglobin (HgbA1c) 6.8 % (4.0-5.6)
--- NOTE | 2024-01-11 08:42 | VNURNOTE ---
Chart reviewed. Patient is current with [facility] nursing. Patient has had multiple recent hospitalizations. Would benefit from Goals of Care discussion w/POA. Will continue to follow hospital course and DC plans.
[2024-01-11] MEDS: ProAIR HFA INHALER 2 PUFF INH ×4 (09:06→19:28)
[2024-01-11 12:14] LABS: Glucose - Point of Care 275 mg/dl (70-99)
[2024-01-11] MEDS: NOVOLOG FLEXPEN-LOW RESISTANCE 3 UNITS SC ×2 (12:14→16:35)
--- NOTE | 2024-01-11 12:58 | CM ---
Addendum entered by Adeline Gonzalez 01/11/24 16:23:
JESSICA spoke with Joelle @ [facility]. Patient's case is in review to decide if he qualifies for Assisted Care placement.
Notified Attending and requested a Psych Consult
Addendum entered by Adeline Gonzalez 01/11/24 15:08:
CM spoke with patient's [facility] Day [facility], Primary Caregiver, Maryann
She confirmed 'patient has an Oxygen Concentrator in his room; also has a portable O2 tank; he is always on oxygen' at a minimum @ liters nasal cannula; sometimes 3-4 liters
Per the caregiver, patient returned from [facility] to [facility] without Oxygen; patient was told that he did not need oxygen @ [facility]
Per caregivers, patient is incontinent at night and sometimes during the day; he is not able to dress or bathe himself; able to feed self; will toilet in the bathroom during the day most of the time.
Per Maryann, there is no Erp Consultant at the facility. During prior hospitalization @ , [facility] assessed patient before he went to [facility].
[place] will call [facility] office tomorrow to confirm Power of Retirement Village Manager information on their facility records
Original Note:
Initial assessment completed with Health Surrogate/Sister/primary contact who lives in [place] (Her name is Laila Rios # [phone])
Recently discharged from [facility] on Monday to his residence @ [facility]; history of mental illness
Covid-19 positive
Per his sister, patient has a private room; shares a bathroom; Nurses administer medications
PLOF: per his sister, patient is independent with personal care but needs prompting to do so; he ambulates without a device; feeds self; enjoys music; has a golf cart and drives it on the grounds as long as someone accompanies him
DME: Oxygen 2 liters via nasal cannula continuously
PT will assess when medically stable
Plan: return to [facility] when medically stable
--- NOTE | 2024-01-11 14:35 | CON.ID ---
Chief Complaint / Past History
Chief Complaint
myalgias, dyspnea
History of Present Illness
Mr Velazquez is a 63 year old male with history or COPD on 2L NC, DM2, schizophrenia who presenteed here from a skilled nursing for shortness of breath with hypoxemia. Staff there reported respiratory distress. He complains of cough, myalgias and
feeling 'bad.' No fevers, chills or chest pain.
Since arrival here he has been afebrile, bp stable, on arrival requiring 6L NC (up from his baseline) but now down to 3L NC and saturating well, wbc on arrival 3.4 now 2.1, hgb 11.2, plt 149, lymphocytopenia with 15% lymphocytes, eoss not currently
present, cr 0.4, na 137, a1c 6.8, t bili 0.2, ast 16, alt 16, alk phos 53, bnp 80, covid ag positive, CXR: atelectasis, currently on dexamethasone 4 q8 hours
Past History
Additional Past Medical History:
chronic hypoxemic/hypercapnic respiratory failure, COPD on 2 L baseline, peripheral edema, type 2 diabetes, hypothyroidism, GERD, BPH, schizophrenia
Past Surgical History: None
Allergy History:
No Known Allergies Allergy (Verified 11/12/23 16:32)
Medications Reviewed: Yes
Social History
Tobacco: Non-Smoker
Alcohol: None
Drug: None
Family History
Family History: Not Pertinent
Review of Systems
Review of Systems
General: Chills; Negative Fever
All systems: All other systems were reviewed and were negative
Vital Signs
Temp Pulse Resp BP Pulse Ox
97.9 F 88 22 139/71 94
01/11/24 11:49 01/11/24 12:00 01/11/24 12:00 01/11/24 12:00 01/11/24 12:00
Physical Exam
Physical Exam
Constitutional: No Acute Distress
Cardiovascular: Regular Rate and S1/S2; Negative Murmur or Rub
Pulmonary: Clear and Symmetric; Negative Wheezes, Rales or Rhonchi
Gastrointestinal: Soft, Non Tender, Non Distended and Normal Bowel Sounds
Skin: Warm and Dry; Negative Rash or Jaundice
Lab / Diagnostic Study Results
01/11/24 04:13
01/11/24 04:13
Abs Immat Gran (auto) 0.0 10^3/uL (0-0.05) 01/11/24 04:13
Absolute Neuts (auto) 1.5 10^3/uL (1.4-6.5) 01/11/24 04:13
Absolute Lymphs (auto) 0.3 10^3/uL (1.2-3.4) L 01/11/24 04:13
Absolute Monos (auto) 0.3 10^3/uL (0.1-0.6) 01/11/24 04:13
Absolute Basos (auto) 0.0 10^3/uL (0-0.2) 01/11/24 04:13
Total Counted 100 01/10/24 10:53
Immature Gran % 1.4 % (0-0.5) H 01/11/24 04:13
Neutrophils % 70.5 % (42.2-75.2) 01/11/24 04:13
Lymphocytes % 15.0 % (20.5-51.1) L 01/11/24 04:13
Monocytes % 12.6 % (1.7-9.3) H 01/11/24 04:13
Eosinophils % 0.0 % (0-6) 01/11/24 04:13
Basophils % 0.5 % (0-2) 01/11/24 04:13
Abs Neuts (Manual) 2.1 10^3/uL (1.4-6.5) 01/10/24 10:53
Segmented Neutrophils 63 % (42-75) 01/10/24 10:53
Band Neutrophils 0 % (0-3) 01/10/24 10:53
Lymphocytes (Manual) 16 % (20-51) L 01/10/24 10:53
Eosinophils (Manual) 1 % (0-6) 01/10/24 10:53
Assessment / Plan
COVID Mild
COPD
- now on 3L O2 with a baseline of 2L
- symptoms mild and already improving
- do not feel patient requires antiviral treatment at this time
- steroid management per pulmonary
- can complete 3 days of antibiotics - tomorrow is final day
- if patient remains well overnight on a similar level of oxygen then would be stable for dc from ID perspective
[2024-01-11] MEDS: ZITHROMAX INFUSION 250 IV (15:03)
[2024-01-11] MEDS: ROCEPHIN 1000 MG IV (15:03)
[2024-01-11] MEDS: STERILE WATER FOR INJECTION 10 ML IV (15:12)
[2024-01-11 16:46] LABS: Glucose - Point of Care 281 mg/dl (70-99)
--- NOTE | 2024-01-11 17:11 | PTCARENOTE ---
Patient states feeling overall better. On 3L NC, sats 96%, desats to 83% on RA when he pulls off his O2. Patient easily redirected by med sitter. Chair and bed alarm on for safety. Patient very forgetful and seen 'talking to someone.' VSS.
Continuing to closely monitor.
--- NOTE | 2024-01-11 19:21 | W.PN.HOSP.TC ---
Today's Communication/Plan
-
Continue IV steroids
Continue antibiotics
No antivirals needed at this time -- appreciate ID
Appreciate pulmonary eval
Assessment / Plan
Assessment / Plan
Physical Exam
General: Not in acute distress
HEENT: Normocephalic, Moist mucous membranes
Respiratory: CTAB
Cardiac: S1/S2 and Regular Rhythm
GI: Soft, Non Tender, Non Distended and Normal Bowel Sounds
Musculoskeletal: No Cyanosis and No Edema
Skin: Warm. Dry.
Neuro: Nonfocal/grossly intact
Assessment/Plan
# Acute COPD exacerbation/possible pneumonia
#COVID Positive
-Bilateral expiratory wheezing on examination
-Down to 3 L oxygen today
-Chronic hypoxemic/hypercapnic respiratory failure secondary to COPD on 2 L baseline
-Chest x-ray showed mild right basilar atelectasis and/or pneumonia
-Dexamethasone 4 mg every 12
-DuoNebs every 6 hours
-Ceftriaxone/azithromycin for 3 days - tomorrow is final day
-Mucinex
-Appreciate ID -- no antivirals needed at this time
-Appreciate pulmonary
Chronic peripheral edema
Mild to moderate tricuspid regurgitation
Type 2 diabetes
-Hold metformin, Januvia
-Insulin sliding scale
-Continue Lantus 18 units
Hypothyroidism
-Continue levothyroxine
Essential hypertension
-Continue amlodipine
GERD
-Continue omeprazole
BPH
-Continue tamsulosin
Schizophrenia
-Continue Seroquel, olanzapine, Depakote
Hyperlipidemia
-Continue statin
Full code
DVT prophylaxis�heparin
Regular diet
Anticipated Discharge: 24 - 48 hours
Subjective/Interval History
-
Date of Service: January 11, 2024
Patient was seen and examined. He reported a little shortness of breath but otherwise denied any other significant symptoms or complaints.
Objective Data
-
Vital Signs:
Vital Signs
Temp Pulse Resp BP Pulse Ox
97.4 F 88 20 151/94 94
01/11/24 16:17 01/11/24 18:00 01/11/24 18:00 01/11/24 18:00 01/11/24 17:28
I&O
01/10/24 01/11/24 01/12/24
06:59 06:59 06:59
Output Total 1550 / 1550 650 / 650
Balance -1550 / -1550 -650 / -650
[2024-01-11] MEDS: ZYPREXA 20 MG PO (21:09)
[2024-01-11] MEDS: SEROQUEL 50 MG PO (21:09)
[2024-01-11] MEDS: LIPITOR 20 MG PO (21:09)
[2024-01-11] MEDS: FLOMAX 0.4 MG PO (21:09)
[2024-01-11 21:18] LABS: Glucose - Point of Care 243 mg/dl (70-99)
[2024-01-12] VITALS (11 sets, daily range): BP systolic 112–157; BP diastolic 59–94; BMI 29.2
[2024-01-12] MEDS: SYNTHROID 200 MCG PO (05:16)
[2024-01-12] MEDS: DECADRON 4 MG IV (05:16)
--- NOTE | 2024-01-12 05:43 | PTCARENOTE ---
Assume care from am RN. AAOx2 forgetful, hallucinated at times and [place]. Tremors. Pt is redirectable. Chair and bed alarm in place. NSR to ST in the monitor. +2 BLLE edema. Shallow breathing and diminished thought the lungs, SaO2 97% 2L NC. Pt
always hungry. Call mullins within reach.
--- NOTE | 2024-01-12 07:59 | PN.DE.MGMTRT ---
Insulin Management
- -
01/12/2024: Diabetes Management Consult
63 year old male admitted with Acute COPD exacerbation/possible pneumonia and COVID Positive.
PMH: Chronic hypoxemic/hypercapnic respiratory failure, COPD on 2 L baseline, peripheral edema, Hypothyroidism, GERD, BPH, schizophrenia and T2DM.
A1C 6.8%, Cr 0.4, eGFR>60. Was taking Metformin 1000mg BID, Januvia 100mg daily, Lantus 18 units in AM and NovoLog SS.
01/09 started on steroids, Dexa 4mg Q8hrs, contributing to Hyperglycemia.
Current diabetes regimen includes Lantus 18 units in AM and low corrective insulin only.
01/10 FBG 195, premeal glucose 207 to 281, HS 243, requiring corrective insulin
Will start AC NovoLog 6 units and increase Lantus to 22 units. Resume metformin 1000 mg BID. HOLD Januvia.
Will need insulin dose adjustment as steroids get tapered off.
Diabetes History
- -
Type of Diabetes: 2 requiring insulin
Pre-Admission Diabetes Regimen
Lab Results
Hemoglobin A1c 6.8 % (4.0-5.6) H 01/11/24 04:13
Insulin Pump Settings
IP Diabetes Regimen
01/11/24 01/11/24 01/11/24
11:57 16:35 21:07
POC Glucose 275 H 281 H 243 H
Meal type: Dinner
Amount consumed: 100%
Patient Education
[2024-01-12] MEDS: ProAIR HFA INHALER 2 PUFF INH ×4 (08:11→19:34)
[2024-01-12 08:40] LABS: Glucose - Point of Care 185 mg/dl (70-99)
[2024-01-12] MEDS: NOVOLOG FLEXPEN 6 UNITS SC ×3 (09:37→18:01)
[2024-01-12] MEDS: GLUCOPHAGE 1000 MG PO ×2 (09:39→18:00)
[2024-01-12] MEDS: NOVOLOG FLEXPEN-LOW RESISTANCE 1 UNITS SC ×2 (09:39→18:01)
[2024-01-12] MEDS: DEPAKOTE (12 HR RELEASE) 1000 MG PO ×2 (09:40→21:24)
[2024-01-12] MEDS: VITAMIN B-12 500 MCG PO (09:42)
[2024-01-12] MEDS: MUCINEX 1200 MG PO ×2 (09:42→21:24)
[2024-01-12] MEDS: NORVASC 5 MG PO (09:42)
[2024-01-12] MEDS: PROTONIX 40 MG PO (09:43)
[2024-01-12] MEDS: HEPARIN 5000 UNITS SC ×2 (09:43→21:25)
[2024-01-12] MEDS: DEPAKOTE (12 HR RELEASE) 250 MG PO ×2 (09:47→21:24)
[2024-01-12] MEDS: LANTUS SC (09:52)
--- NOTE | 2024-01-12 10:22 | CON.PUL ---
Consultation
Consultation Request
Date/Time Consultation Requested: 01/12/2024-8 AM
Date/Time Consultation Performed: 01/12/2024-8 AM
Requesting Provider: Hospitalist
Performing Provider: Dr. Martinez
Reason for Consultation: COPD and COVID
Medical History
-
Chief Complaint: Shortness of breath
History of Present Illness:
63-year-old male with a history of COPD on 2 L O2, diabetes, hypothyroid, GERD, BPH, schizophrenia presented with increasing shortness of breath with pulse ox in the 70s-pulmonary consulted for hypoxemia/COPD and COVID-positive 01/12/2024. Patient
is somewhat of a poor historian. He complains of some shortness of breath, chest congestion, productive cough, unclear color of sputum, but no chest pain, pleurisy, hemoptysis, abdominal pain, nausea, or leg swelling.
Past Medical History
Past Medical History: None (COPD/O2 2 L-Dr. Addison. Chronic hypercapnia. KATTY. Former smoker. Diabetes. Hypothyroid. GERD. BPH. Schizophrenia. Cholecystectomy.)
Social History
Tobacco: Former Smoker
Alcohol: None
Drug: None
Living: Other (assisted)
Occupational Exposures: No known asbestos exposure
Environmental Exposures: No known tuberculosis exposure
Family History
Family History: Other (Mother and Father-, unable to provide family history)
Allergies / Home Medications
Allergies
Allergy/AdvReac Type Severity Reaction Status Date / Time
No Known Allergies Allergy Verified 11/12/23 16:32
Home Medications
�Medication �Instructions �Recorded �Confirmed �Last Taken �Type
levothyroxine 200 mcg tablet 200 mcg PO DAILY@0600 Thyroid 07/08/19 01/10/24 01/10/24 History
acetaminophen 325 mg tablet 650 mg PO Q4HPRN PRN mild pain 04/24/23 01/10/24 12/07/23 History
(Tylenol)
atorvastatin 20 mg tablet 20 mg PO HS High Cholesterol 01/01/10/24 01/09/24 History
polyethylene glycol 3350 17 gram 17 g PO DAILYPRN PRN constipation 04/25/23 01/10/24 Unknown History
oral powder packet (Miralax)
cyanocobalamin (vitamin B-12) 500 500 mcg PO DAILY Supplement 06/17/23 01/10/24 01/10/24 History
mcg tablet
divalproex 250 mg tablet,delayed 250 mg PO BID@ mental 06/17/23 01/10/24 01/10/24 History
release health
divalproex 500 mg tablet,delayed 1,000 mg PO BID@ mental 06/17/23 01/10/24 01/10/24 History
release health
albuterol sulfate 90 mcg/actuation 2 puff inhalation R Q4HPRN PRN copd 09/13/23 01/10/24 12/14/23 History
aerosol inhaler
ipratropium 0.5 mg-albuterol 3 mg 3 ml inhalation R BID 09/27/23 01/10/24 01/10/24 History
(2.5 mg base)/3 mL nebulization Lung/Breathing Issues
soln
sitagliptin phosphate 100 mg 100 mg PO DAILY Diabetes 10/14/23 01/10/24 01/10/24 History
tablet (Januvia)
aluminum hydrox-magnesium carb 95 15 ml PO DAILYPRN PRN gerd 11/12/23 01/10/24 01/09/24 History
mg-358 mg/15 mL oral suspension
(Acid Gone Antacid)
amlodipine 5 mg tablet (Norvasc) 5 mg PO DAILY Blood Pressure 11/12/23 01/10/24 01/10/24 History
dextromethorphan-guaifenesin 10 10 ml PO Q4HPRN PRN cough 11/12/23 01/10/24 01/09/24 History
mg-100 mg/5 mL oral liquid
(Omaira-Tussin DM)
dextromethorphan-guaifenesin 10 10 ml PO Q6HPRN PRN cough 11/12/23 01/10/24 01/09/24 History
mg-100 mg/5 mL oral liquid (Tussin
DM)
diltiazem HCl 120 mg 120 mg PO DAILY Heart 11/12/23 01/10/24 01/10/24 History
capsule,extended release 24 hr Disease/Condition
insulin regular human 100 unit/mL 1 sliding scale dose SC ACHS 11/12/23 01/10/24 01/10/24 History
(3 mL) subcutaneous pen (Novolin R Diabetes
FlexPen)
ipratropium 0.5 mg-albuterol 3 mg 3 ml inhalation R Q4HPRN PRN sob 11/12/23 01/10/24 01/08/24 History
(2.5 mg base)/3 mL nebulization
soln
olanzapine 15 mg tablet 20 mg PO HS Mental Health/Anxiety 11/12/23 01/10/24 01/09/24 History
omeprazole 20 mg capsule,delayed 20 mg PO DAILY Gastrointestinal 11/12/23 01/10/24 01/10/24 History
release Issue
quetiapine 50 mg tablet (Seroquel) 50 mg PO HS Mental Health/Anxiety 11/12/23 01/10/24 01/09/24 History
tamsulosin 0.4 mg capsule (Flomax) 0.4 mg PO HS Urinary Issue 11/12/23 01/10/24 01/09/24 History
guaifenesin 600 mg tablet, 600 mg PO [id number] PRN 11/22/23 01/10/24 01/09/24 History
extended release 12 hr (Mucus cough/conjestion
Relief ER)
insulin glargine 100 unit/mL (3 18 unit SC DAILY Diabetes 11/22/23 01/10/24 01/10/24 History
mL) subcutaneous pen (Lantus
Solostar U-100 Insulin)
metformin 1,000 mg tablet 1,000 mg PO BID Diabetes 11/22/23 01/10/24 01/10/24 History
azithromycin 250 mg tablet 250 mg PO MOWEFR@0800 Infection 12/14/23 01/10/24 01/10/24 History
starch (thickening) (Thick-It oral 1 ea PO DAILY Supplement 12/14/23 01/10/24 01/10/24 History
powder)
furosemide 20 mg tablet (Lasix) 20 mg PO DAILY 01/10/24 01/10/24 01/10/24 History
Review of Systems
-
Unable to Obtain full review of systems at this time due to: Other (Per HPI)
Vitals / Labs / Diagnostic Testing
Vital Signs
Temp Pulse Resp BP Pulse Ox
97.8 F 84 20 130/73 95
01/12/24 07:07 01/12/24 08:15 01/12/24 08:15 01/12/24 08:00 01/12/24 08:15
Diagnostic Testing:
Physical Exam
-
Exam:
Well-nourished and well-developed in no apparent distress
HEENT-atraumatic, normocephalic
Neck-supple, no JVD, no bruit
Heart-regular rate and rhythm--subtle systolic murmur
Chest with diminished breath sounds, prolonged expiratory time, rare crackles and few forced expiratory wheezes
Back without tenderness
Abdomen-soft, nontender, nondistended, no hepatosplenomegaly
Extremities-no cyanosis, clubbing, trace lower extremity edema
Integument-intact, no rashes, lesions or ecchymosis
Neurology-alert and oriented, nonfocal motor and sensory exam
Assessment
-
63-year-old male with a history of COPD on 2 L O2, diabetes, hypothyroid, GERD, BPH, schizophrenia presented with increasing shortness of breath with pulse ox in the 70s-pulmonary consulted for hypoxemia/COPD and COVID-positive 01/12/2024.
COPD-Gold stage IV with acute exacerbation
Vzupvmoiz-qlknyglte-lyxteiin
URIUU-hmthvymz-ccwh disease
Leukopenia-WBC 2.1
Becbru-kvuagpdztd-lbladqxhzc 11.2
Hyperglycemia-blood sugar 195-A1c 6.8
Conditions present prior to admission:
COPD/O2 2 L-Dr. Addison.
Chronic hypercapnia.
KATTY.
Former smoker.
Diabetes.
Hypothyroid.
GERD.
BPH.
Schizophrenia.
Cholecystectomy.
Plan
Respiratory decompensation likely due to underlying severe COPD-Gold stage IV with acute exacerbation in addition to community-acquired pneumonia and COVID infection
Supplement oxygen as needed-on home O2 2 L
Assess discharge supplemental oxygen needs prior to discharge
Decadron 6 mg IV Q 24 hours
Inhalers-albuterol and ipratropium bromide 4 times daily as well as as needed
Because of COVID positivity nebulizers are being avoided
Incentive spirometry
Mucolytic's
Mucus clearing devices
Aspiration precautions
Check cultures
COVID positive
Infectious disease following-correspondence reviewed
Isolation per protocol
Decadron 6 mg IV daily-finite course
Antivirals not indicated
Check sputum culture
Empiric antibiotics-ceftriaxone and azithromycin
Monitor leukopenia
Monitor hemoglobin
Transfuse as needed
Consider B12 and folate levels if not previously done with macrocytosis
Monitor blood sugar
Insulin supplementation as needed
DVT prophylaxis-on subcu heparin
GI prophylaxis-on pantoprazole
Nutrition
Early mobilization
Reviewed with nursing
The patient was last seen by Dr. Addison 09/06/2023 and subsequently by Maribell Cochran 10/24/2023 and Amrita Jackson 12/06/23-has appointment 02/12/[address] Addison
Diagnostic data:
Chest x-ray 01/10/2024-mild right basilar pneumonia progressed from prior
CXR 11/22/23- worsening RUL pemonia.Small right pleual effusion. grossly stable bibasilar atelectasis-CXR 11/12/23- patchy opacity in the right lung base which may represent atelectasis or pneumonia. no large pleural effusion or pneumothorax.-
CXR 10/14/2023: Improved aeration of the right lower lung field concerning for improved pneumonia. Flattening of the diaphragms consistent with COPD.VSE 09/28/2023: No aspiration. Deep transient penetration of thin liquid.
CT chest PE study 09/13/2023: No PE. Small right pleural effusion. Patchy airspace opacity in the inferior right lower lobe suspicious for mild pneumonia. Mildly enlarged right hilar lymph node, nonspecific but favored to be reactive.
CXR 06/17/23: Severe left basilar pna.
LDCT 06/14/23: Confluent consolidation within the posteroinferior lingula. Severe confluent consolidation within the basilar and lateral segments. Posterior aspiration related.VSE 06/07/23: No aspiration
CT Chest 03/24/21: Mild pericardial thickening and/or tiny pericardial effusion. Small right lower lobe groundglass opacity seen on prior study no longer identified. Approximate 1.3 cm anterior mediastinal lymph node.
Lower extremity ultrasound 12/16/2023-no evidence for DVT in the left lower extremity
Echo 04/28/23: Hyperdynamic LV systolic function. EF 70-75%. Mild .
Echocardiogram 12/15/2023-EF 65-70%, mild aortic stenosis
PFT (only able to perform Kenneth) 09/16/21: FVC 1.83/44%, FEV1 1.00/32%, ratio 55%. Severe obstruction and suggestive of severe restriction.Spirometry 02/10/2021: Reviewed, FEV1/FVC 67%, FEV1 1.13 L-35%, FVC 2.23 L -53%.Mixed ventilatory defect.
Moderate to severe airflow obstruction with a restriction.
PFT 02/15/19: FEV1 0.96 L 30%, FVC 1.90 L 44%, ratio 51. Unable to perform study volumes/DLCO.
ABG 12/14/2023--93/82/7 0.31
HST 02/06/19: REESE 6.1, O2 jonah 78%, 75.4% of the study was spent with saturation below 90%.
OVERNIGHT PULSE OXIMETER:�Nocturnal O2 study 10/15/18: Lowest 63%, time spent below 88% was 0.4%. DEI 1.0.
Data Reviewed
-
PFT: Report reviewed by me
EKG: Report reviewed by me
Radiology: Report reviewed by me
CT Scan: Image personally visualized and interpreted and Report reviewed by me
Ultrasound: Report reviewed by me
Medical Tests (Nuc Med, Echo etc): Report reviewed by me
Labs: Labs reviewed by me
Old Records: Reviewed
Total Time Spent with Patient (in minutes): 65
--- NOTE | 2024-01-12 10:23 | W.PN.ID1 ---
Date of Service
Date of Service: January 12, 2024
Today's Communication
final day of antibiotics
stable for dc from ID perspective
Assessment / Plan
COVID Mild
COPD
- now on 3L O2 with a baseline of 2L
- symptoms mild and already improving
- do not feel patient requires antiviral treatment at this time
- steroid management per pulmonary
- complete 3 days of antibiotics - final day
- 10 days of isolation while inpatient
- stable for dc from ID perspective
Chief Complaint
-: Other (covid)
Subjective / Review of Systems
afebrile
was on 2L overnight, now back on 3L
hallucinating at times
Vital Signs / Physical Exam
Vital Signs
Vital Signs
Temp Pulse Resp BP Pulse Ox
97.8 F 84 20 130/73 95
01/12/24 07:07 01/12/24 08:15 01/12/24 08:15 01/12/24 08:00 01/12/24 08:15
Physical Exam
Constitutional: No Acute Distress and Chronically Ill
Cardiovascular: Regular Rate and S1/S2; Negative Murmur or Rub
Pulmonary: Clear and Symmetric; Negative Wheezes or Rales
Gastrointestinal: Soft, Non Tender, Non Distended and Normal Bowel Sounds
Skin: Warm and Dry; Negative Rash or Jaundice
Objective Data
Lab Data
Estimated Creat Clear 120 ml/min 01/11/24 04:13
Total Bilirubin 0.2 mg/dl (0.2-1.3) 01/10/24 10:53
AST 16 U/L (17-59) L 01/10/24 10:53
ALT 16 U/L (0-50) 01/10/24 10:53
Alkaline Phosphatase 53 U/L (38-126) 01/10/24 10:53
Most recent labs reviewed.
wbc 3.4
L shift on steroids
progression of lymphopenia
--- NOTE | 2024-01-12 11:07 | CON.MD ---
Consultation - Medical
-
patient seen chart reviewed. this patient is very well known to me. i have seen him in several of his admissions to the last evaluation done by me was on 12/20/2023, he was admitted bc shortness of breath and po2 in the 70's he was thought to
have mild covid infection. the patient has hx of schizophrenia. during his last two admits to he was being medicated psychiatrically with several antipsychotics. he saw several psych consultants all of whom agreed to taper some of the
antipsychotics and he appeared to be less sedated and he said he felt improved. at this point the remains on the psych regimen we had prescribed during the last admit including seroquel 50 mg q hs depakote 1250 mg bid olanzapine 20 mg q hs. he
denied ill effects with current medications. the patient when i saw him today was not very interested in conversation. he told me talking was 'getting on my nerves'. as long as i kept the discussion to food he participated. he asked if i could
get him more coffee and seven up. on his last admit it is noted in the chart that he ate ravenously . he had already suffered aspiration pneumonia and eating slowly and chewing more thoroughly was discussed by this justowriter operator with him. currently
patient denies side effects from medication. he is not suicidal. he is not actively hearing voices.
past psych hx obtained from chart. patient lives in [facility] which [facility] a mental health [facility]. to my knowledge he has not been hospitalized psychiatrically recently. current depakote level is in the 70's see meds as above
past medical hx patient has hx copd respiratory failure manjit recurrent aspiration dysphagia dm hypothyroid epilepsy gerd htn bph glaucoma w left vision loss
fh non contributory
substance abuse none
social hx resides at [place]. has never been able to work. [place] talks on the phone w her occasionally
mse patient alert oriented to place though not to time. patient displays paucity of thought and expression. he told me today he did not want to talk and answered only a few questions. sometimes his speech is hard to understand. thought process
preoccupied with getting more food and drink. no overt psychosis in terms of delusion hallucinations or obvious paranoia affect blunted mood is a little bit irritated denies si insight judgment lacking
dx schizophrenia
plan would continue meds as they are for now. he seems to have been on this regimen for some weeks at least since last admit and offers no c/o re meds. i am told the question psych is supposed to answer is does he need intermediate designer care. i do not
feel able to answer that question. from the psych perspective he seems to be doing reasonably at this point. whether he needs ltc from the position of medical issues needs to be assessed by others treating him. would suggest that this might
better be pursued from the community rather than by the hospital. psych will look in on him tomorrow.
--- NOTE | 2024-01-12 11:57 | CM ---
Patient from [facility] with Hx schizophrenia with Dx Acute COPD exacerbation/possible pneumonia, COVID + 01/09. O2 3L. Receiving IV Abx, IV Decadron. Seen by Psych. PT & OT Keziaals pending.
Spoke with Pilar Ohara, Crime Scene Investigator [facility] (ph [phone]); they are able to accept the patient back when he is medically ready. Even if patient has skilled needs for rehab they prefer that the patient return to them as their
nurses can provide 24 hr care and she is aware he is current with [facility]. Pilar confirms patient has home O2. She is aware that patient is Covid +. They cannot accept the patient back over the weekend. The ph for report [phone], fax
[phone].
Pilar was wondering if the patient has end stage COPD and is ready for hospice---> message from Dr Gomez, Catherine & Michelle that patient is not ready for hospice.
Plan follow up after seen by PT/OT.
Plan return to [facility] when medically ready.
[2024-01-12] MEDS: NOVOLOG FLEXPEN-LOW RESISTANCE 4 UNITS SC (12:07)
[2024-01-12 12:14] LABS: Glucose - Point of Care 326 mg/dl (70-99)
[2024-01-12 13:28] LABS: % Immature Granulocytes 0.6 % (0-0.5); % Lymphocytes 9.7 % (20.5-51.1); % Neutrophils 79.7 % (42.2-75.2); Absolute Lymphocytes 0.3 10^3/uL (1.2-3.4); Absolute Monocytes 0.3 10^3/uL (0.1-0.6); Absolute Neutrophils 2.7 10^3/uL (1.4-6.5); Hematocrit 33.5 % (39.0-52.0); Hemoglobin 11.2 g/dL (13.0-18.0); Mean Corp Hgb Conc. 33.4 g/dL (33.0-37.0); Mean Corpuscular Hgb 33.6 pg (27.0-31.0); Mean Corpuscular Volume 100.6 fL (80.0-94.0); Nucleated Red Blood Cells % 0 % (-); Platelet Count 171 10^3/uL (130-400); Red Blood Cell Count 3.33 10^6/uL (4.70-6.10); Red Cell Dist. Width 14.5 % (11.5-14.5); White Blood Cell Count 3.4 10^3/uL (4.8-10.8)
--- NOTE | 2024-01-12 13:55 | PN.CDI ---
CDI
- -
CDI:
Physician Documentation Request
Admit Date: 01/10/24 14:18
Dear Doctor Jason,
Please review the following and provide your response in the progress notes.
Clinical Indicators:
pt admitted with COPD exacerbation an d chronic respiratory failure.
01/09 ER note: 'COPD oxygen dependent 2 L nasal cannula baseline diabetes hypothyroidism presenting to the emergency department today with concerns of shortness of breath while at [facility] when he was assessed with morning vital signs. Pulse ox
was in the 70s he appeared to be in somewhat distress when breathing. Was placed on 4 L with some improved then required a nonrebreather with EMS improving to 100.'
01/09 H&P: 'Currently on 6 L oxygen'
Clarify which of the following accurately represents the patient's respiratory status:
Acute on chronic respiratory failure
Chronic respiratory failure
Other
Additional information for Respiratory Failure:
Recognized criteria for Respiratory Failure (Source: [facility] Hospitalist Feb 2013)
ABGs: (1 or more) Symptoms Please indicate type if known
1. p)2 <60 or RA SPO2 <91% on RA 1. Tachypnea, SOB, dyspnea Hypoxic
2. pCO2 50 and pH <7.35 2. Use of accessory muscles Hypercapnic
3. pO2 decrease of pCO2 increase by 3. Pallor or cyanosis Hypoxic and Hypercapnic
10 mmHg from baseline if known 4. Anxiety or restlessness Unable to determine
5. Unable to speak in full sentences
Supplemental O2 of > 40% (5LPM) Intubation is not required
Use of terms such as suspected, likely, concern for, or probable (associated with a specific diagnosis that is being evaluated, monitored, or treated as if it exists) are acceptable and can be coded in the inpatient setting, when documented at the
time of discharge.
Thank you,
Ermelinda Arguello RN, BSN
CDI Specialist
Available via [employer]
Please use your independent medical judgment in providing your response.
[2024-01-12 15:08] LABS: Blood Urea Nitrogen 14 mg/dl (9-20); Calcium 9.2 mg/dl (8.4-10.2); Carbon Dioxide 36 mmol/L (22-30); Chloride 86 mmol/L (98-107); Estimated Creatinine Clearance 120 ml/min; Glucose 261 mg/dl (70-99); Potassium 4.4 mmol/L (3.5-5.1); Sodium 133 mmol/L (135-145); eGFR > 60.00
[2024-01-12] MEDS: ZITHROMAX 500 MG PO (15:32)
[2024-01-12] MEDS: FLUSH (NSS) 1 FLUSH IV (15:33)
[2024-01-12] MEDS: ROCEPHIN 1000 MG IV (15:33)
[2024-01-12] MEDS: STERILE WATER FOR INJECTION 10 ML IV (15:33)
[2024-01-12 18:11] LABS: Glucose - Point of Care 180 mg/dl (70-99)
--- NOTE | 2024-01-12 18:12 | PTCARENOTE ---
Patient has MR and lives in a long-term. Patient is forgetful but can be easily redirected. Med-sitter in use. Bed and chair alarm in use. Patient uses urinal independently. Patient is on 3 L at baseline. He is currently on 3L with pulse ox
95-98%. Patient has dry cough, lungs with some scattered rhonci. Out of bed to chair with assistance x1.
--- NOTE | 2024-01-12 18:32 | W.PN.HOSP.TC ---
Today's Communication/Plan
-
Clinically improved, last day of IV Rocephin and Azithromycin
Assessment / Plan
Assessment / Plan
Physical Exam
General: Not in acute distress
HEENT: Normocephalic, Moist mucous membranes
Respiratory: CTAB. ON 3 L/MIN OF OXYGEN.
Cardiac: S1/S2 and Regular Rhythm
GI: Soft, Non Tender, Non Distended and Normal Bowel Sounds
Musculoskeletal: No Cyanosis and No Edema
Skin: Warm. Dry.
Neuro: Nonfocal/grossly intact
Assessment/Plan
#Acute COPD exacerbation/possible pneumonia
#Acute on Chronic Hypoxic Respiratory Failure - IMPROVED
#COVID Positive
-Bilateral expiratory wheezing on examination
-Down to 3 L oxygen today
-Chronic hypoxemic/hypercapnic respiratory failure secondary to COPD on 2 L baseline
-Chest x-ray showed mild right basilar atelectasis and/or pneumonia
-Dexamethasone 4 mg every 12 --> now decreased to Dexamethasone to 6 mg every 24 hours
-DuoNebs every 6 hours
-Ceftriaxone/azithromycin for 3 days - today is final day
-Mucinex
-Appreciate ID -- no antivirals needed at this time
-Appreciate pulmonary
-10 days of isolation while inpatient
Chronic peripheral edema
Mild to moderate tricuspid regurgitation
Type 2 Diabetes Mellitus
-Hold metformin, Januvia
-Insulin sliding scale
-Continue Lantus and premeal
-Appreciate Diabetes [employer]
Hypothyroidism
-Continue levothyroxine
Essential hypertension
-Continue amlodipine
GERD
-Continue omeprazole
BPH
-Continue tamsulosin
Schizophrenia
-Continue Seroquel, olanzapine, Depakote
Hyperlipidemia
-Continue statin
Full code
DVT prophylaxis�heparin
Regular diet
Anticipated Discharge: Within 24 hours
Subjective/Interval History
-
Date of Service: January 12, 2024
Patient was seen and examined. He reported a little shortness of breath but otherwise denied any other new, significant symptoms or complaints.
Objective Data
-
Labs:
Laboratory Results
01/12/24
13:05
WBC 3.4 L
Hgb 11.2 L
Hct 33.5 L
Plt Count 171
Sodium 133 L
Potassium 4.4
Chloride 86 L
Carbon Dioxide 36 H
BUN 14
Creatinine 0.6 L
Glucose 261 H
Calcium 9.2
Vital Signs:
Vital Signs
Temp Pulse Resp BP Pulse Ox
97.8 F 90 12 157/94 96
01/12/24 16:35 01/12/24 18:01 01/12/24 18:01 01/12/24 18:01 01/12/24 16:35
I&O
01/11/24 01/12/24 01/13/24
06:59 06:59 06:59
Intake Total 480 / 480 1100 / 1100
Output Total 1550 / 1550 1050 / 1050 1690 / 1690
Balance -1550 / -1550 -570 / -570 -590 / -590
[2024-01-12 21:09] LABS: Glucose - Point of Care 220 mg/dl (70-99)
[2024-01-12] MEDS: ZYPREXA 20 MG PO (21:21)
[2024-01-12] MEDS: SEROQUEL 50 MG PO (21:22)
[2024-01-12] MEDS: FLOMAX 0.4 MG PO (21:22)
[2024-01-12] MEDS: LIPITOR 20 MG PO (21:22)
[2024-01-13] VITALS (9 sets, daily range): BP systolic 118–157; BP diastolic 60–125
--- NOTE | 2024-01-13 04:04 | PTCARENOTE ---
Pt received at beginning of shift sitting up in chair. AAOx3. Tremulous. Hallucinations while awake. Denies pain or discomfort. VSS afebrile throughout shift. SR/PVC on CM. POX on 3L NC 98%. Medsitter on. Chair and bed alarms on and working. Pt
assisted with min assist to bed. Meds given without issue. When in chair alarm only going off when pt stands to use urinal than sits back down. No change from previous assessment. Pt turns self in bed. Call mullins remains within reach. Will continue
to monitor.
[2024-01-13] MEDS: DECADRON 6 MG IV (05:40)
[2024-01-13] MEDS: SYNTHROID 200 MCG PO (05:40)
[2024-01-13] MEDS: FLUSH (NSS) 2 FLUSH IV (05:41)
[2024-01-13 08:28] LABS: Glucose - Point of Care 165 mg/dl (70-99)
[2024-01-13] MEDS: ProAIR HFA INHALER INH (08:49)
[2024-01-13] MEDS: SPIRIVA RESPIMAT 2.5 MCG INH (08:49)
[2024-01-13] MEDS: MUCINEX 1200 MG PO ×2 (09:32→21:00)
[2024-01-13] MEDS: NORVASC 5 MG PO (09:32)
[2024-01-13] MEDS: PROTONIX 40 MG PO (09:32)
[2024-01-13] MEDS: GLUCOPHAGE 1000 MG PO ×2 (09:33→17:23)
[2024-01-13] MEDS: DEPAKOTE (12 HR RELEASE) 250 MG PO ×2 (09:33→21:01)
[2024-01-13] MEDS: DEPAKOTE (12 HR RELEASE) 1000 MG PO ×2 (09:33→21:00)
[2024-01-13] MEDS: VITAMIN B-12 500 MCG PO (09:34)
[2024-01-13] MEDS: HEPARIN 5000 UNITS SC ×2 (09:35→20:59)
[2024-01-13] MEDS: LANTUS 0.22 UNITS SC (09:35)
[2024-01-13] MEDS: NOVOLOG FLEXPEN 6 UNITS SC ×3 (09:36→17:23)
[2024-01-13] MEDS: NOVOLOG FLEXPEN-LOW RESISTANCE 1 UNITS SC ×2 (09:36→17:23)
[2024-01-13] MEDS: ProAIR HFA INHALER 2 PUFF INH ×3 (11:19→19:32)
[2024-01-13 12:31] LABS: Glucose - Point of Care 219 mg/dl (70-99)
[2024-01-13] MEDS: NOVOLOG FLEXPEN-LOW RESISTANCE 2 UNITS SC (13:02)
[2024-01-13] MEDS: STERILE WATER FOR INJECTION 10 ML IV (13:38)
[2024-01-13] MEDS: ROCEPHIN 1000 MG IV (13:38)
--- NOTE | 2024-01-13 14:50 | W.PN.UPDATE ---
Update Note
Progress Note Update
Pt reviewed with nursing staff, is Covid +. Pt is compliant with medications, overall cooperative with treatment, some reported inappropriate remarks at times. No agitation noted.
Imp: Schizophrenia, stable on existing medications
Rec: return to [facility] med mgt when medically stable
will follow
--- NOTE | 2024-01-13 15:25 | W.PN.PUL3 ---
Today's Communication / Plan
-
Continue oxygen for mentation-has oxygen at home that he wears at 2 L
Prednisone taper
Mucolytic's
Incentive spirometry
Hopefully discharge planning soon
Assessment
-
63-year-old male with a history of COPD on 2 L O2, diabetes, hypothyroid, GERD, BPH, schizophrenia presented with increasing shortness of breath with pulse ox in the 70s-pulmonary consulted for hypoxemia/COPD and COVID-positive 01/12/2024.
COPD-Gold stage IV with acute exacerbation
Bgwnobrog-ldynfgtoz-fzmpxekj
ODMGB-vxuycurn-airl disease
Leukopenia-WBC 2.1
Paytmo-jcaybigoxw-emddcrevcm 11.2
Hyperglycemia-blood sugar 195-A1c 6.8
Conditions present prior to admission:
COPD/O2 2 L-Dr. Addison.
Chronic hypercapnia.
KATTY.
Former smoker.
Diabetes.
Hypothyroid.
GERD.
BPH.
Schizophrenia.
Cholecystectomy.
Plan
Respiratory decompensation likely due to underlying severe COPD-Gold stage IV with acute exacerbation in addition to community-acquired pneumonia and COVID infection
Supplement oxygen as needed-on home O2 2 L(close to baseline)
-
Okay to transition to Pred 40 mg and decrease by 10 mg every 72 hours to off.
Inhalers-albuterol and ipratropium bromide 4 times daily as well as as needed
Because of COVID positivity nebulizers are being avoided while in the hospital. Can restart in the outpatient setting
Incentive spirometry
Mucus clearing devices
COVID positive
Infectious disease following-correspondence reviewed
Isolation per protocol 10 days while in
Transition to 40 mg of prednisone, decrease by 10 mg every 72 hours to off
Antivirals not indicated
Completed course of antibiotics 01/13/2024
Infectious disease correspondence reviewed-ready to discharge from their perspective
Monitor blood sugar
Insulin supplementation as needed
DVT prophylaxis-on subcu heparin
GI prophylaxis-on pantoprazole
Hopefully patient can be discharged in the next 24 to 48 hours. Patient is a resident of [facility]
The patient was last seen by Dr. Addison 09/06/2023 and subsequently by Maribell Cochran 10/24/2023 and Amrita Jackson 12/06/23-has appointment 02/12/[address] at [address] Addison
Diagnostic data:
Chest x-ray 01/10/2024-mild right basilar pneumonia progressed from prior
CXR 11/22/23- worsening RUL pemonia.Small right pleual effusion. grossly stable bibasilar atelectasis-CXR 11/12/23- patchy opacity in the right lung base which may represent atelectasis or pneumonia. no large pleural effusion or pneumothorax.-
CXR 10/14/2023: Improved aeration of the right lower lung field concerning for improved pneumonia. Flattening of the diaphragms consistent with COPD.VSE 09/28/2023: No aspiration. Deep transient penetration of thin liquid.
CT chest PE study 09/13/2023: No PE. Small right pleural effusion. Patchy airspace opacity in the inferior right lower lobe suspicious for mild pneumonia. Mildly enlarged right hilar lymph node, nonspecific but favored to be reactive.
CXR 06/17/23: Severe left basilar pna.
LDCT 06/14/23: Confluent consolidation within the posteroinferior lingula. Severe confluent consolidation within the basilar and lateral segments. Posterior aspiration related.VSE 06/07/23: No aspiration
CT Chest 03/24/21: Mild pericardial thickening and/or tiny pericardial effusion. Small right lower lobe groundglass opacity seen on prior study no longer identified. Approximate 1.3 cm anterior mediastinal lymph node.
Lower extremity ultrasound 12/16/2023-no evidence for DVT in the left lower extremity
Echo 04/28/23: Hyperdynamic LV systolic function. EF 70-75%. Mild .
Echocardiogram 12/15/2023-EF 65-70%, mild aortic stenosis
PFT (only able to perform Rule) 09/16/21: FVC 1.83/44%, FEV1 1.00/32%, ratio 55%. Severe obstruction and suggestive of severe restriction.Spirometry 02/10/2021: Reviewed, FEV1/FVC 67%, FEV1 1.13 L-35%, FVC 2.23 L -53%.Mixed ventilatory defect.
Moderate to severe airflow obstruction with a restriction.
PFT 02/15/19: FEV1 0.96 L 30%, FVC 1.90 L 44%, ratio 51. Unable to perform study volumes/DLCO.
ABG 12/14/2023--93/82/7 0.31
HST 02/06/19: REESE 6.1, O2 jonah 78%, 75.4% of the study was spent with saturation below 90%.
OVERNIGHT PULSE OXIMETER:�Nocturnal O2 study 10/15/18: Lowest 63%, time spent below 88% was 0.4%. DEI 1.0.
Subjective Data
-
Date of Service:
Date of Service: January 13, 2024
Chief Complaint: Pulmonary Follow Up (Acute COPD exacerbation/possible pneumonia/COVID-positive)
Subjective:
Intermittently confused
No acute respiratory complaint
Review of Systems
General: Fever (n)
Cardiopulmonary: Dyspnea (none at rest)
GI: Abdominal Pain (n) and Nausea (n)
Objective Data
Data Reviewed
Vital Signs / I&O / Oxygen:
Vital Signs
Temp Pulse Resp BP Pulse Ox
97.9 F 80 21 142/96 96
01/13/24 11:05 01/13/24 06:00 01/13/24 06:00 01/13/24 06:00 01/13/24 14:00
Intake and Output
01/12/24 01/13/24 01/14/24
06:59 06:59 06:59
Intake Total 480 / 480 1580 / 1580
Output Total 1050 / 1050 3865 / 3865 1200 / 1200
Balance -570 / -570 -2285 / -2285 -1200 / -1200
SaO2 96
Nasal Cannula flow liters per 3
minute
Physical Exam
General: Comfortable
HEENT: Normocephalic
Respiratory: Wheeze (n) and Crackles
GI: Soft and Non Distended
Neurology: Awake and Alert
Skin: Warm
Labs/Micro/Reports
Lab Data
01/12/24 13:05
01/12/24 13:05
[2024-01-13 16:36] LABS: Glucose - Point of Care 152 mg/dl (70-99)
--- NOTE | 2024-01-13 16:44 | PTCARENOTE ---
report called to MICHAEL Mora on [facility]. Pt updated on plan of care. Pt to be transferred to Rm [id number].
--- NOTE | 2024-01-13 18:39 | W.PN.HOSP.TC ---
Today's Communication/Plan
-
Per case management, [facility] cannot accept patient back until 01/15/24
Continue prednisone
Appreciate pulm
Transfer to telemetry
Assessment / Plan
Assessment / Plan
Physical Exam
General: Not in acute distress
HEENT: Normocephalic, Moist mucous membranes
Respiratory: CTAB. ON 3 L/MIN OF OXYGEN.
Cardiac: S1/S2 and Regular Rhythm
GI: Soft, Non Tender, Non Distended and Normal Bowel Sounds
Musculoskeletal: No Cyanosis and No Edema
Skin: Warm. Dry.
Neuro: Nonfocal/grossly intact
Assessment/Plan
#Acute COPD exacerbation/possible pneumonia
#Acute on Chronic Hypoxic Respiratory Failure - IMPROVED
#COVID Positive
-Bilateral expiratory wheezing on examination
-Down to 3 L oxygen today
-Chronic hypoxemic/hypercapnic respiratory failure secondary to COPD on 2 L baseline
-Chest x-ray showed mild right basilar atelectasis and/or pneumonia
-Dexamethasone 4 mg every 12 --> decreased to Dexamethasone to 6 mg every 24 hours --> now on prednisone taper 40 mg and decrease by 10 mg every 72 hours to off.
-DuoNebs every 6 hours
-Ceftriaxone/azithromycin for 3 days was given
-Mucinex
-Appreciate ID -- no antivirals needed at this time
-Appreciate pulmonary
-10 days of isolation while inpatient
Chronic peripheral edema
Mild to moderate tricuspid regurgitation
Type 2 Diabetes Mellitus
-Hold metformin, Januvia
-Insulin sliding scale
-Continue Lantus and premeal
-Appreciate Diabetes MATERIAL CONTROL MANAGER
Hypothyroidism
-Continue levothyroxine
Essential hypertension
-Continue amlodipine
GERD
-Continue omeprazole
BPH
-Continue tamsulosin
Schizophrenia
-Continue Seroquel, olanzapine, Depakote
Hyperlipidemia
-Continue statin
Full code
DVT prophylaxis�heparin
Regular diet
Anticipated Discharge: > 48 hours
Subjective/Interval History
-
Date of Service: January 13, 2024
Patient was seen and examined. No new symptoms or complaints.
Objective Data
-
Vital Signs:
Vital Signs
Temp Pulse Resp BP Pulse Ox
98.9 F 87 29 130/93 96
01/13/24 15:10 01/13/24 16:00 01/13/24 16:00 01/13/24 12:00 01/13/24 14:00
I&O
01/12/24 01/13/24 01/14/24
06:59 06:59 06:59
Intake Total 480 / 480 1580 / 1580
Output Total 1050 / 1050 3865 / 3865 1200 / 1200
Balance -570 / -570 -2285 / -2285 -1200 / -1200
[2024-01-13 20:38] LABS: Glucose - Point of Care 248 mg/dl (70-99)
[2024-01-13] MEDS: FLOMAX 0.4 MG PO (21:00)
[2024-01-13] MEDS: ZYPREXA 20 MG PO (21:01)
[2024-01-13] MEDS: LIPITOR 20 MG PO (21:01)
[2024-01-13] MEDS: SEROQUEL 50 MG PO (21:01)
--- NOTE | 2024-01-13 21:28 | PTCARENOTE ---
Pt received at beginning of shift resting at side of bed. AAOx2 this evening. Confused to place. VSS. Afebrile. POX on 3L NC 96%. SR on CM. Admits to neck discomfort that he states he's 'had for a while.' Pain rating 2-3/10. Declines Tylenol at this
time. Pt points his fingers in the air and taps on table as if responding to something or someone. Occasional dry research test engine evaluator cough. Using urinal to at bedside, good output. Received HS snacks and HS meds given as ordered. Rest of assessment as documented.
Turns self in bed. Medsitter on and working in room. Both bed and chair alarms on and working. Call mullins remains within reach. Will continue to monitor.
[2024-01-14] VITALS (7 sets, daily range): BP systolic 119–155; BP diastolic 67–101
[2024-01-14 04:43] LABS: % Basophils 0.3 % (0-2); % Immature Granulocytes 1.3 % (0-0.5); % Lymphocytes 31.9 % (20.5-51.1); % Monocytes 15.6 % (1.7-9.3); % Neutrophils 50.9 % (42.2-75.2); Absolute Monocytes 0.5 10^3/uL (0.1-0.6); Absolute Neutrophils 1.5 10^3/uL (1.4-6.5); Hemoglobin 10.8 g/dL (13.0-18.0); Mean Corp Hgb Conc. 33.8 g/dL (33.0-37.0); Mean Platelet Volume 9.7 fL (7.4-10.4); Nucleated Red Blood Cells % 0 % (-); Platelet Count 178 10^3/uL (130-400); Red Blood Cell Count 3.37 10^6/uL (4.70-6.10); Red Cell Dist. Width 14.3 % (11.5-14.5)
[2024-01-14 05:24] LABS: Blood Urea Nitrogen 17 mg/dl (9-20); Calcium 9.2 mg/dl (8.4-10.2); Carbon Dioxide 37 mmol/L (22-30); Chloride 90 mmol/L (98-107); Estimated Creatinine Clearance 120 ml/min; Glucose 129 mg/dl (70-99); Potassium 4.3 mmol/L (3.5-5.1); Sodium 135 mmol/L (135-145); eGFR > 60.00
[2024-01-14] MEDS: SPIRIVA RESPIMAT 2.5 MCG 2 PUFF INH (07:31)
[2024-01-14] MEDS: ProAIR HFA INHALER 2 PUFF INH ×4 (07:31→20:36)
[2024-01-14] MEDS: SYNTHROID 200 MCG PO (08:19)
[2024-01-14] MEDS: NORVASC 5 MG PO (08:19)
[2024-01-14] MEDS: MUCINEX 1200 MG PO ×2 (08:20→19:54)
[2024-01-14] MEDS: PROTONIX 40 MG PO (08:20)
[2024-01-14] MEDS: LANTUS 0.22 UNITS SC (08:21)
[2024-01-14] MEDS: DELTASONE 40 MG PO (08:21)
[2024-01-14] MEDS: GLUCOPHAGE 1000 MG PO ×2 (08:23→17:34)
[2024-01-14] MEDS: DEPAKOTE (12 HR RELEASE) 250 MG PO ×2 (08:23→19:54)
[2024-01-14] MEDS: DEPAKOTE (12 HR RELEASE) 1000 MG PO ×2 (08:23→19:54)
[2024-01-14] MEDS: VITAMIN B-12 500 MCG PO (08:23)
[2024-01-14] MEDS: HEPARIN 5000 UNITS SC ×2 (08:24→19:54)
[2024-01-14] MEDS: NOVOLOG FLEXPEN 6 UNITS SC ×3 (08:25→17:32)
[2024-01-14] MEDS: NOVOLOG FLEXPEN-LOW RESISTANCE SC (08:26)
[2024-01-14 08:29] LABS: Glucose - Point of Care 143 mg/dl (70-99)
[2024-01-14 12:33] LABS: Glucose - Point of Care 154 mg/dl (70-99)
--- NOTE | 2024-01-14 13:08 | CM ---
sustainability project manager received a call from physician regarding discharge today, per previous piano case maker notes [facility] states that they cannot accept patient on weekend, physician made aware.
Plan; Discharge back to [place] when stable.
[2024-01-14] MEDS: NOVOLOG FLEXPEN-LOW RESISTANCE 1 UNITS SC ×2 (13:23→17:32)
--- NOTE | 2024-01-14 14:55 | W.PN.HOSP.TC ---
Today's Communication/Plan
-
Discussed with case management today whether patient can go back to [facility], however case management stated [facility] cannot take patient back today
He is stable, hopefully will be able to discharge tomorrow
Assessment / Plan
Assessment / Plan
Physical Exam
General: Not in acute distress
HEENT: Normocephalic, Moist mucous membranes
Respiratory: CTAB. ON 3 L/MIN OF OXYGEN (chronically wears 2 L of oxygen)
Cardiac: S1/S2 and Regular Rhythm
GI: Soft, Non Tender, Non Distended and Normal Bowel Sounds
Musculoskeletal: No Cyanosis and No Edema
Skin: Warm. Dry.
Neuro: Nonfocal/grossly intact
Assessment/Plan
#Acute COPD exacerbation/possible pneumonia
#COPD on 2 L of home oxygen
#Acute on Chronic Hypoxic Respiratory Failure - IMPROVED
#COVID Positive
-Bilateral expiratory wheezing on examination
-Remains at 3 L oxygen today
-Chronic hypoxemic/hypercapnic respiratory failure secondary to COPD on 2 L baseline
-Chest x-ray showed mild right basilar atelectasis and/or pneumonia
-Dexamethasone 4 mg every 12 --> decreased to Dexamethasone to 6 mg every 24 hours --> now on prednisone taper 40 mg and decrease by 10 mg every 72 hours to off.
-DuoNebs every 6 hours
-Ceftriaxone/azithromycin for 3 days was given
-Mucinex
-Appreciate ID -- no antivirals needed at this time
-Appreciate pulmonary
-10 days of isolation while inpatient
Chronic peripheral edema
Mild to moderate tricuspid regurgitation
Type 2 Diabetes Mellitus
-Hold metformin, Januvia
-Insulin sliding scale
-Continue Lantus and premeal
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
Hypothyroidism
-Continue levothyroxine
Essential hypertension
-Continue amlodipine
GERD
-Continue omeprazole
BPH
-Continue tamsulosin
Schizophrenia
-Continue Seroquel, olanzapine, Depakote
Hyperlipidemia
-Continue statin
Full code
DVT prophylaxis�heparin
Regular diet
Anticipated Discharge: Within 24 hours
Subjective/Interval History
-
Date of Service: January 14, 2024
Patient was seen and examined. He reported no new symptoms or complaints.
Objective Data
-
Labs:
Laboratory Results
01/14/24
04:24
WBC 3.0 L
Hgb 10.8 L
Hct 32.0 L
Plt Count 178
Sodium 135
Potassium 4.3
Chloride 90 L
Carbon Dioxide 37 H
BUN 17
Creatinine 0.6 L
Glucose 129 H
Calcium 9.2
Vital Signs:
Vital Signs
Temp Pulse Resp BP Pulse Ox
97.9 F 82 18 126/86 97
01/14/24 13:20 01/14/24 11:33 01/14/24 11:33 01/14/24 09:06 01/14/24 11:33
I&O
01/13/24 01/14/24 01/15/24
06:59 06:59 06:59
Intake Total 1580 / 1580 400 / 400
Output Total 3865 / 3865 3120 / 3120 700 / 700
Balance -2285 / -2285 -2720 / -2720 -700 / -700
--- NOTE | 2024-01-14 15:01 | W.PN.PUL3 ---
Today's Communication / Plan
-
Ready for discharge
Awaiting discharge back to [facility]
Prednisone taper
Nebulizer
Incentive spirometer
Oxygen supplementation
Sign off
Assessment
-
63-year-old male with a history of COPD on 2 L O2, diabetes, hypothyroid, GERD, BPH, schizophrenia presented with increasing shortness of breath with pulse ox in the 70s-pulmonary consulted for hypoxemia/COPD and COVID-positive 01/12/2024.
COPD-Gold stage IV with acute exacerbation
Fullutnfe-aqvgpesww-apbhpyea
GZRMY-afvflcwy-isju disease
Leukopenia-WBC 2.1
Nxnhfc-fmfjrtqevt-apynvzugkr 11.2
Hyperglycemia-blood sugar 195-A1c 6.8
Conditions present prior to admission:
COPD/O2 2 L-Dr. Addison.
Chronic hypercapnia.
KATTY.
Former smoker.
Diabetes.
Hypothyroid.
GERD.
BPH.
Schizophrenia.
Cholecystectomy.
Plan
Respiratory decompensation likely due to underlying severe COPD-Gold stage IV with acute exacerbation in addition to community-acquired pneumonia and COVID infection
Supplement oxygen as needed-on home O2 2 L(close to baseline)
-
Continue Pred 40 mg and decrease by 10 mg every 72 hours to off.
Inhalers-albuterol and ipratropium bromide 4 times daily as well as as needed
Because of COVID positivity nebulizers are being avoided while in the hospital. Can restart in the outpatient setting
Incentive spirometry, encouraged
Mucus clearing devices
COVID positive
Infectious disease following-correspondence reviewed
Isolation per protocol 10 days while in
Transition to 40 mg of prednisone, decrease by 10 mg every 72 hours to off
Antivirals not indicated
Completed course of antibiotics 01/13/2024
Infectious disease correspondence reviewed-ready to discharge from their perspective
Monitor blood sugar
Insulin supplementation as needed
DVT prophylaxis-on subcu heparin
GI prophylaxis-on pantoprazole
Ready for discharge but [facility] will not take him over the weekend. Discharge on Monday.
No additional recommendation
Sign off
The patient was last seen by Dr. Addison 09/06/2023 and subsequently by Maribell Cochran 10/24/2023 and Amrita Jackson 12/06/23-has appointment 02/12/2024 at [address] Addison
Diagnostic data:
Chest x-ray 01/10/2024-mild right basilar pneumonia progressed from prior
CXR 11/22/23- worsening RUL pemonia.Small right pleual effusion. grossly stable bibasilar atelectasis-CXR 11/12/23- patchy opacity in the right lung base which may represent atelectasis or pneumonia. no large pleural effusion or pneumothorax.-
CXR 10/14/2023: Improved aeration of the right lower lung field concerning for improved pneumonia. Flattening of the diaphragms consistent with COPD.VSE 09/28/2023: No aspiration. Deep transient penetration of thin liquid.
CT chest PE study 09/13/2023: No PE. Small right pleural effusion. Patchy airspace opacity in the inferior right lower lobe suspicious for mild pneumonia. Mildly enlarged right hilar lymph node, nonspecific but favored to be reactive.
CXR 06/17/23: Severe left basilar pna.
LDCT 06/14/23: Confluent consolidation within the posteroinferior lingula. Severe confluent consolidation within the basilar and lateral segments. Posterior aspiration related.VSE 06/07/23: No aspiration
CT Chest 03/24/21: Mild pericardial thickening and/or tiny pericardial effusion. Small right lower lobe groundglass opacity seen on prior study no longer identified. Approximate 1.3 cm anterior mediastinal lymph node.
Lower extremity ultrasound 12/16/2023-no evidence for DVT in the left lower extremity
Echo 04/28/23: Hyperdynamic LV systolic function. EF 70-75%. Mild .
Echocardiogram 12/15/2023-EF 65-70%, mild aortic stenosis
PFT (only able to perform Vicco) 09/16/21: FVC 1.83/44%, FEV1 1.00/32%, ratio 55%. Severe obstruction and suggestive of severe restriction.Spirometry 02/10/2021: Reviewed, FEV1/FVC 67%, FEV1 1.13 L-35%, FVC 2.23 L -53%.Mixed ventilatory defect.
Moderate to severe airflow obstruction with a restriction.
PFT 02/15/19: FEV1 0.96 L 30%, FVC 1.90 L 44%, ratio 51. Unable to perform study volumes/DLCO.
ABG 12/14/2023--93/82/7 0.31
HST 02/06/19: REESE 6.1, O2 jonah 78%, 75.4% of the study was spent with saturation below 90%.
OVERNIGHT PULSE OXIMETER:�Nocturnal O2 study 10/15/18: Lowest 63%, time spent below 88% was 0.4%. DEI 1.0.
Subjective Data
-
Date of Service:
Date of Service: January 14, 2024
Chief Complaint: Pulmonary Follow Up (Acute COPD exacerbation/possible pneumonia/COVID-positive)
Subjective:
No new complaints
Remains on isolation
Review of Systems
Cardiopulmonary: Dyspnea (Improved) and Cough (Improved)
Objective Data
Data Reviewed
Vital Signs / I&O / Oxygen:
Vital Signs
Temp Pulse Resp BP Pulse Ox
97.9 F 82 18 126/86 97
01/14/24 13:20 01/14/24 11:33 01/14/24 11:33 01/14/24 09:06 01/14/24 11:33
Intake and Output
01/13/24 01/14/24 01/15/24
06:59 06:59 06:59
Intake Total 1580 / 1580 400 / 400
Output Total 3865 / 3865 3120 / 3120 700 / 700
Balance -2285 / -2285 -2720 / -2720 -700 / -700
SaO2 97
Nasal Cannula flow liters per 3
minute
Physical Exam
General: Comfortable
HEENT: Normocephalic
Respiratory: Wheeze (n) and Crackles
GI: Soft and Non Distended
Neurology: Awake and Alert
Skin: Warm
Labs/Micro/Reports
Lab Data
01/14/24 04:24
01/14/24 04:24
[2024-01-14 16:24] LABS: Glucose - Point of Care 198 mg/dl (70-99)
[2024-01-14 21:28] LABS: Glucose - Point of Care 121 mg/dl (70-99)
[2024-01-14] MEDS: FLOMAX 0.4 MG PO (21:34)
[2024-01-14] MEDS: LIPITOR 20 MG PO (21:35)
[2024-01-14] MEDS: ZYPREXA 20 MG PO (21:35)
[2024-01-14] MEDS: SEROQUEL 50 MG PO (21:35)
[2024-01-15] VITALS: BP 120/74
[2024-01-15] MEDS: SYNTHROID 200 MCG PO (04:21)
[2024-01-15 04:30] VITALS: BP 154/89
[2024-01-15 05:00] LABS: Blood Urea Nitrogen 18 mg/dl (9-20); Carbon Dioxide 34 mmol/L (22-30); Chloride 87 mmol/L (98-107); Estimated Creatinine Clearance 120 ml/min; Glucose 80 mg/dl (70-99); Potassium 4.4 mmol/L (3.5-5.1); Sodium 130 mmol/L (135-145); eGFR > 60.00
[2024-01-15 05:40] LABS: % Basophils 0.6 % (0-2); % Eosinophils 0.3 % (0-6); % Immature Granulocytes 2.4 % (0-0.5); % Lymphocytes 45.6 % (20.5-51.1); % Monocytes 12.6 % (1.7-9.3); % Neutrophils 38.5 % (42.2-75.2); Absolute Immature Granulocytes 0.1 10^3/uL (0-0.05); Absolute Lymphocytes 1.6 10^3/uL (1.2-3.4); Absolute Monocytes 0.4 10^3/uL (0.1-0.6); Absolute Neutrophils 1.3 10^3/uL (1.4-6.5); Hematocrit 35.5 % (39.0-52.0); Hemoglobin 12.2 g/dL (13.0-18.0); Mean Corp Hgb Conc. 34.4 g/dL (33.0-37.0); Mean Corpuscular Hgb 32.6 pg (27.0-31.0); Mean Corpuscular Volume 94.9 fL (80.0-94.0); Mean Platelet Volume 9.9 fL (7.4-10.4); Nucleated Red Blood Cells % 0 % (-); Platelet Count 191 10^3/uL (130-400); Red Blood Cell Count 3.74 10^6/uL (4.70-6.10); Red Cell Dist. Width 14.3 % (11.5-14.5); White Blood Cell Count 3.4 10^3/uL (4.8-10.8)
[2024-01-15 06:54] VITALS: BP 143/85
[2024-01-15 07:54] LABS: Glucose - Point of Care 104 mg/dl (70-99)
[2024-01-15] MEDS: ProAIR HFA INHALER 2 PUFF INH ×4 (08:06→20:13)
[2024-01-15] MEDS: SPIRIVA RESPIMAT 2.5 MCG 2 PUFF INH (08:06)
--- NOTE | 2024-01-15 08:07 | PN.DE.MGMTRT ---
Insulin Management
- -
01/15/2024: Diabetes Management Consult
63 year old male admitted with Acute COPD exacerbation/possible pneumonia and COVID Positive.
PMH: Developmental delay, Schizophrenia, HTN, hypothyroid, Chronic hypoxemic/hypercapnic respiratory failure, COPD on 2 L baseline, epilepsy, peripheral edema, GERD, BPH, glaucoma, left eye vision loss and T2DM.
Prior to admission his diabetes regimen included Lantus 18 units, Januvia 100 mg daily and Metformin 1000 mg BID with sliding scale Novolin R.
Current A1C 6.8%, was 7.3% on 11/27, Cr 0.4, eGFR >60. Pt states that Denise at the group monitors his blood sugars and gives him his insulin.
Pt awake, A/O x3, sitting up on bed, offers no complaints, able to discuss diabetes mgt.
Remains on steroids, Pred 40 mg daily, contributing to Hyperglycemia.
01/13 premeal glucose range 143 to 198, fasting 80 (V), 104 POC this AM.
Will resume Januvia and cont; AC NovoLog 6 units, Lantus 22 units @ HS and Metformin 1000 mg BID.
Will need insulin dose adjustment as steroids get tapered off.
Will change diet to 1800 calorie, discussed with pt and he was agreeable.
Diabetes History
- -
Type of Diabetes: 2 requiring insulin
Pre-Admission Diabetes Regimen
01/15/24
04:27
Creatinine 0.5 L
Lab Results
Hemoglobin A1c 6.8 % (4.0-5.6) H 01/11/24 04:13
Insulin Pump Settings
IP Diabetes Regimen
01/14/24 01/14/24 01/14/24
08:18 12:19 16:11
Glucose
POC Glucose 143 H 154 H 198 H
01/14/24 01/15/24 01/15/24
21:17 04:27 07:43
Glucose 80
POC Glucose 121 H 104 H
Meal type: Lunch
Meal type: Breakfast
Amount consumed: 100%
Amount consumed: 100%
Patient Education
[2024-01-15] MEDS: VITAMIN B-12 500 MCG PO (08:23)
[2024-01-15] MEDS: NORVASC 5 MG PO (08:23)
[2024-01-15] MEDS: DEPAKOTE (12 HR RELEASE) 250 MG PO ×2 (08:23→20:53)
[2024-01-15] MEDS: PROTONIX 40 MG PO (08:23)
[2024-01-15] MEDS: GLUCOPHAGE 1000 MG PO ×2 (08:23→17:54)
[2024-01-15] MEDS: DELTASONE 40 MG PO (08:23)
[2024-01-15] MEDS: LANTUS 0.22 UNITS SC (08:24)
[2024-01-15] MEDS: DEPAKOTE (12 HR RELEASE) 1000 MG PO ×2 (08:24→20:53)
[2024-01-15] MEDS: MUCINEX 1200 MG PO ×2 (08:24→20:53)
[2024-01-15] MEDS: NOVOLOG FLEXPEN 6 UNITS SC ×3 (08:25→17:50)
[2024-01-15] MEDS: HEPARIN 5000 UNITS SC ×2 (08:25→20:53)
[2024-01-15] MEDS: NOVOLOG FLEXPEN-LOW RESISTANCE SC ×2 (08:25→12:32)
--- NOTE | 2024-01-15 09:11 | W.PN.ID1 ---
Date of Service
Date of Service: January 15, 2024
Today's Communication
ID service will no longer actively follow this patient please recall for further questions
Assessment / Plan
COVID Mild
COPD
- now home amount of O2
- symptoms mild and already improving
- steroid management per pulmonary
- completed 3 days of antibiotics
- 10 days of isolation while inpatient 01/09-01/19
ID service will no longer actively follow this patient please recall for further questions
Chief Complaint
-: Other (covid)
Subjective / Review of Systems
afebrile
on his home amount of O2
steroids being tapered
Vital Signs / Physical Exam
Vital Signs
Vital Signs
Temp Pulse Resp BP Pulse Ox
98 F 78 16 143/85 96
01/15/24 06:57 01/15/24 08:11 01/15/24 08:11 01/15/24 08:23 01/15/24 04:30
Physical Exam
Constitutional: No Acute Distress
Cardiovascular: Regular Rate and S1/S2; Negative Murmur or Rub
Pulmonary: Clear and Symmetric; Negative Wheezes or Rales
Gastrointestinal: Soft, Non Tender, Non Distended and Normal Bowel Sounds
Skin: Warm and Dry; Negative Rash or Jaundice
Objective Data
Lab Data
Lab Results
01/15/24 05:26
01/15/24 04:27
Estimated Creat Clear 120 ml/min 01/15/24 04:27
Total Bilirubin 0.2 mg/dl (0.2-1.3) 01/10/24 10:53
AST 16 U/L (17-59) L 01/10/24 10:53
ALT 16 U/L (0-50) 01/10/24 10:53
Alkaline Phosphatase 53 U/L (38-126) 01/10/24 10:53
Most recent labs reviewed.
Care Review
Plan reviewed with: Nurse (no new symptoms, always hungry)
[2024-01-15 12:42] LABS: Glucose - Point of Care 130 mg/dl (70-99)
--- NOTE | 2024-01-15 13:21 | PTCARENOTE ---
Rec'd pt this. AM Pt is on baseline O2 of 4L NC. Ambulating in room. Removed from tele per protocol. focused on food. requires reminders about diabetic diet.
--- NOTE | 2024-01-15 14:15 | VNURNOTE ---
chart reviewed and updates obtained from JESSICA Vann. [facility] requested per residential/[facility]. Referral placed in [facility].
[2024-01-15 16:55] LABS: Glucose - Point of Care 214 mg/dl (70-99)
--- NOTE | 2024-01-15 17:32 | CM ---
Patient from [facility] with Hx schizophrenia with Dx Acute COPD exacerbation/possible pneumonia, COVID + 01/09. O2 4L per nurses notes. Seen by Psych. Francia. Per nurse assessment; requires assist of 1, ambulatory in room. PT & OT Robert
pending.
Spoke with Pilar Ohara, Construction Safety Consultant [facility] (ph [phone] [phone]); they are able to accept the patient back when he is medically ready. Pilar would like the patient to have [facility] again. As previously noted, patient has home O2. The ph
for report [phone], fax [phone].
Message to Dr Zaragoza requesting PT/OT Robert.
Plan follow up after seen by PT/OT.
Plan return to [facility] when medically ready.
[2024-01-15] MEDS: NOVOLOG FLEXPEN-LOW RESISTANCE 2 UNITS SC (17:50)
--- NOTE | 2024-01-15 17:51 | W.PN.HOSP.TC ---
Today's Communication/Plan
-
rapid taper off steroids
Assessment / Plan
Assessment / Plan
ON 2 L/MIN OF OXYGEN (chronically wears 2 L of oxygen as per his nurse) with SaO2 99%
Assessment/Plan
#Acute COPD exacerbation/possible exacerbated by viral pneumonia
#COPD on 2 L of home oxygen
#Acute on Chronic Hypoxic Respiratory Failure - IMPROVED
#COVID Positive
-Bilateral expiratory wheezing on examination
-Chronic hypoxemic/hypercapnic respiratory failure secondary to COPD on 2 L baseline
-Chest x-ray showed mild right basilar atelectasis and/or pneumonia
-Dexamethasone 4 mg every 12 --> decreased to Dexamethasone to 6 mg every 24 hours --> now on prednisone taper 40 mg and decrease by 10 mg every 72 hours to off.
-DuoNebs every 6 hours
-Ceftriaxone/azithromycin for 3 days was given
-Mucinex
-Appreciate ID -- no antivirals needed at this time
-Appreciate pulmonary
-10 days of isolation while inpatient
Chronic peripheral edema
Mild to moderate tricuspid regurgitation
Type 2 Diabetes Mellitus
-Hold metformin, Januvia
-Insulin sliding scale
-Continue Lantus and premeal
-Appreciate Diabetes STOCK BUYER
glu 104-198
DM will need close f/u at [facility] as steroids are tapered
Hypothyroidism
-Continue levothyroxine
Essential hypertension
-Continue amlodipine
GERD
-Continue omeprazole
BPH
-Continue tamsulosin
Schizophrenia
-Continue Seroquel, olanzapine, Depakote
Hyperlipidemia
-Continue statin
Full code
DVT prophylaxis�heparin
Regular diet
PT/OT consults
potential dc tomorrow
Anticipated Discharge: Within 24 hours
Subjective/Interval History
-
Date of Service: January 15, 2024
Appears comfortable, denies sob
Objective Data
-
Vital Signs:
Vital Signs
Temp Pulse Resp BP Pulse Ox
98 F 70 16 143/85 96
01/15/24 06:57 01/15/24 15:12 01/15/24 15:12 01/15/24 08:23 01/15/24 04:30
I&O
01/14/24 01/15/24 01/16/24
06:59 06:59 06:59
Intake Total 400 / 400 960 / 960
Output Total 3120 / 3120 2850 / 2850 850 / 850
Balance -2720 / -2720 -1890 / -1890 -850 / -850
Review of Systems
-
History Source: Patient and Coordinated Provider
Constitutional: Denies Fever
EENT: Reports No Symptoms Reported
Respiratory: Reports Cough
Cardiac: Reports No Symptoms; Denies Chest Pain
Abdomen/GI: Reports No Symptoms
Physical Exam
-
General: Well Developed, Well Nourished, No Apparent Distress and Comfortable
HEENT: Normocephalic, Atraumatic and Moist Mucous Membranes
Respiratory: Decreased Breath Sounds (Decreased breath sounds at the bases bilaterally)
Cardiac: Regular Rhythm
Breast: Deferred by me
GI: Soft, Nontender, Nondistended and Normal Bowel Sounds
Genito-urinary: Deferred by me
Musculoskeletal: No Clubbing, No Cyanosis and No Edema
Skin: Warm and Dry
Neuro: Awake, Alert, Oriented and AO x 3
[2024-01-15 18:32] VITALS: BP 135/82
[2024-01-15] MEDS: ZYPREXA 20 MG PO (20:57)
[2024-01-15] MEDS: LIPITOR 20 MG PO (20:58)
[2024-01-15] MEDS: SEROQUEL 50 MG PO (20:58)
[2024-01-15] MEDS: FLOMAX 0.4 MG PO (20:58)
[2024-01-15 22:00] VITALS: BP 134/80
--- NOTE | 2024-01-15 22:00 | PTCARENOTE ---
Caring of pt overnight. No c/o pain. No SOB. Pt remains on 2LNC. Pt oob ad franky, steady on feet. Will continue to monitor.
[2024-01-15 22:04] VITALS: BP 134/80
[2024-01-15 22:18] LABS: Glucose - Point of Care 182 mg/dl (70-99)
[2024-01-16] MEDS: SYNTHROID 200 MCG PO (06:16)
[2024-01-16 07:40] VITALS: BP 128/84
[2024-01-16 07:41] VITALS: BP 128/84
--- NOTE | 2024-01-16 08:20 | PN.DE.MGMTRT ---
Insulin Management
- -
01/16/2024: Diabetes Management Consult Follow up
63 year old male admitted with Acute COPD exacerbation/possible pneumonia and COVID Positive.
PMH: Developmental delay, Schizophrenia, HTN, hypothyroid, Chronic hypoxemic/hypercapnic respiratory failure, COPD on 2 L baseline, epilepsy, peripheral edema, GERD, BPH, glaucoma, left eye vision loss and T2DM.
Prior to admission his diabetes regimen included Lantus 18 units, Januvia 100 mg daily and Metformin 1000 mg BID with sliding scale Novolin R.
Current A1C 6.8%, was 7.3% on 11/27, Cr 0.4, eGFR >60. Pt states that Denise at the group monitors his blood sugars and gives him his insulin.
Pt awake, A/O x3, sitting up on bed, offers no complaints, able to discuss diabetes mgt.
Remains on steroids, Pred 40 mg daily, contributing to Hyperglycemia.
01/14 premeal glucose range 80 to 214, fasting 01/15 74.
Januvia resumed 01/14, will continue with AC NovoLog 6 units, decrease AM Lantus 20 units in AM (22 units already given this AM, first reduced dose 01/16) with Metformin 1000 mg BID.
Will need insulin dose adjustment as steroids get tapered off.
Will follow for further needed adjustments; discussed with patient nurse. Patient for possible discharge today.
Diabetes History
- -
Type of Diabetes: 2 requiring insulin
Pre-Admission Diabetes Regimen
Lab Results
Hemoglobin A1c 6.8 % (4.0-5.6) H 01/11/24 04:13
Insulin Pump Settings
IP Diabetes Regimen
01/15/24 01/15/24 01/15/24
12:29 16:44 22:04
POC Glucose 130 H 214 H 182 H
Patient Education
[2024-01-16] MEDS: ProAIR HFA INHALER INH ×2 (08:27→16:24)
[2024-01-16] MEDS: SPIRIVA RESPIMAT 2.5 MCG INH (08:27)
[2024-01-16] MEDS: DELTASONE 40 MG PO (10:58)
[2024-01-16] MEDS: PROTONIX 40 MG PO (10:59)
[2024-01-16] MEDS: GLUCOPHAGE 1000 MG PO ×2 (10:59→17:28)
[2024-01-16] MEDS: DEPAKOTE (12 HR RELEASE) 250 MG PO ×2 (10:59→19:26)
[2024-01-16] MEDS: JANUVIA 100 MG PO (10:59)
[2024-01-16] MEDS: VITAMIN B-12 500 MCG PO (10:59)
[2024-01-16 11:00] VITALS: BP 128/74; PULSE 90
[2024-01-16] MEDS: HEPARIN 5000 UNITS SC ×2 (11:00→19:26)
[2024-01-16] MEDS: MUCINEX 1200 MG PO ×2 (11:00→19:25)
[2024-01-16] MEDS: NORVASC 5 MG PO (11:00)
[2024-01-16] MEDS: LANTUS 0.22 UNITS SC (11:00)
[2024-01-16] MEDS: DEPAKOTE (12 HR RELEASE) 1000 MG PO ×2 (11:00→19:26)
[2024-01-16] MEDS: NOVOLOG FLEXPEN-LOW RESISTANCE SC (11:04)
[2024-01-16] MEDS: NOVOLOG FLEXPEN 6 UNITS SC ×3 (11:12→18:51)
[2024-01-16 11:15] LABS: Glucose - Point of Care 74 mg/dl (70-99)
[2024-01-16] MEDS: ProAIR HFA INHALER 2 PUFF INH ×2 (11:47→19:52)
--- NOTE | 2024-01-16 13:05 | W.PN.UPDATE ---
Update Note
Progress Note Update
Pt seen, reviewed with nursing staff. Pt alert, calm, cooperative. Has not been a management problem per staff. Taking prescribed medication, no apparent side effects.
Imp: Schizophrenia, stable on existing medications
Rec: return to [facility] mgt when medically stable
--- NOTE | 2024-01-16 14:21 | W.PN.HOSP.TC ---
Addendum entered and electronically signed by Jamel Zaragoza MD 01/16/24 18:26:
Text from JESSICA Vann, faciltiy has staffing issues tonight, won't be able to take pt back until tomorrow morning. will hold on dc until able to take back
Original Note:
Today's Communication/Plan
-
dc today
Assessment / Plan
Assessment / Plan
ON 2 L/MIN OF OXYGEN (chronically wears 2 L of oxygen as per his nurse) with SaO2 99%
Assessment/Plan
#Acute COPD exacerbation/possible exacerbated by viral pneumonia
#COPD on 2 L of home oxygen
#Acute on Chronic Hypoxic Respiratory Failure - IMPROVED
#COVID Positive
-Bilateral expiratory wheezing on examination
-Chronic hypoxemic/hypercapnic respiratory failure secondary to COPD on 2 L baseline
-Chest x-ray showed mild right basilar atelectasis and/or pneumonia
-Dexamethasone 4 mg every 12 --> decreased to Dexamethasone to 6 mg every 24 hours --> now on prednisone taper 40 mg and decrease by 10 mg every 72 hours to off.
-DuoNebs every 6 hours
-Ceftriaxone/azithromycin for 3 days was given
-Mucinex
-Appreciate ID -- no antivirals needed at this time
-Appreciate pulmonary
-10 days of isolation while inpatient
Chronic peripheral edema
Mild to moderate tricuspid regurgitation
Type 2 Diabetes Mellitus
-Hold metformin, Januvia
-Insulin sliding scale
-Continue Lantus and premeal
-Appreciate Diabetes PLANNING DIVISION SUPERINTENDENT
glu 104-198
DM will need close f/u at [facility] as steroids are tapered
Hypothyroidism
-Continue levothyroxine
Essential hypertension
-Continue amlodipine
GERD
-Continue omeprazole
BPH
-Continue tamsulosin
Schizophrenia
-Continue Seroquel, olanzapine, Depakote
Hyperlipidemia
-Continue statin
Full code
DVT prophylaxis�heparin
Regular diet
PT/OT consults
reviewed with MICHAEL Cruz
DC to [facility] with planned taper off steroids
More than 30 minutes spent in discharge including
Final examination of the patient
Summarizing hospital stay
Instructions for continuing care to all relevant caregivers
Preparation of discharge records, prescriptions, and referral forms
Total time spent (in minutes): 45
Anticipated Discharge: Today
Subjective/Interval History
-
Date of Service: January 16, 2024
Pt appears comfortable
Objective Data
-
Vital Signs:
Vital Signs
Temp Pulse Resp BP Pulse Ox
98.2 F 75 18 128/84 100
01/16/24 07:40 01/16/24 07:40 01/16/24 07:40 01/16/24 07:40 01/16/24 07:40
I&O
01/15/24 01/16/24 01/17/24
06:59 06:59 06:59
Intake Total 960 / 960 240 / 240
Output Total 2850 / 2850 1000 / 1000
Balance -1890 / -1890 -760 / -760
Review of Systems
-
History Source: Patient and Coordinated Provider
Constitutional: Denies Fever
EENT: Reports No Symptoms Reported
Respiratory: Reports Cough
Cardiac: Reports No Symptoms; Denies Chest Pain
Abdomen/GI: Reports No Symptoms
Physical Exam
-
General: Well Developed, Well Nourished, No Apparent Distress and Comfortable
HEENT: Normocephalic, Atraumatic and Moist Mucous Membranes
Respiratory: Decreased Breath Sounds (Decreased breath sounds at the bases bilaterally)
Cardiac: Regular Rhythm
Breast: Deferred by me
GI: Soft, Nontender, Nondistended and Normal Bowel Sounds
Genito-urinary: Deferred by me
Musculoskeletal: No Clubbing, No Cyanosis and No Edema
Skin: Warm and Dry
Neuro: Awake, Alert, Oriented and AO x 3
[2024-01-16 14:43] VITALS: BP 104/61
--- NOTE | 2024-01-16 14:45 | W.DS.TRANS ---
DC Summary - Divorce Mediator
-
Discharge Instructions:
Discharge Diagnosis/Procedures Covid-19
Diet Diabetic, Carb Controlled
Activity As tolerated
Driving Restrictions No driving
Bathing Restrictions None
Blood Work CBC, BMP in 1-2 weeks
Instructions:
Stand-Alone Forms:
Changes to Home Medications: Yes
Discharge Medications:
DC Medications w/original date entered in [employer]
levothyroxine 200 mcg tablet 200 mcg PO DAILY@0600 Thyroid 07/08/19
acetaminophen 325 mg tablet (Tylenol) 650 mg PO Q4HPRN PRN mild pain 04/24/23
atorvastatin 20 mg tablet 20 mg PO HS High Cholesterol 04/24/23
polyethylene glycol 3350 17 gram oral powder packet (Miralax) 17 g PO DAILYPRN PRN constipation 04/25/23
cyanocobalamin (vitamin B-12) 500 mcg tablet 500 mcg PO DAILY Supplement 06/17/23
divalproex 250 mg tablet,delayed release 250 mg PO BID@08,1999 mental health 06/17/23
divalproex 500 mg tablet,delayed release 1,000 mg PO BID@08 mental health 06/17/23
albuterol sulfate 90 mcg/actuation aerosol inhaler 2 puff inhalation R Q4HPRN PRN copd 09/13/23
ipratropium 0.5 mg-albuterol 3 mg (2.5 mg base)/3 mL nebulization soln 3 ml inhalation R BID Lung/Breathing Issues 09/27/23
sitagliptin phosphate 100 mg tablet (Januvia) 100 mg PO DAILY Diabetes 10/14/23
aluminum hydrox-magnesium carb 95 mg-358 mg/15 mL oral suspension (Acid Gone Antacid) 15 ml PO DAILYPRN PRN gerd 11/12/23
amlodipine 5 mg tablet (Norvasc) 5 mg PO DAILY Blood Pressure 11/12/23
dextromethorphan-guaifenesin 10 mg-100 mg/5 mL oral liquid (Omaira-Tussin DM) 10 ml PO Q4HPRN PRN cough 11/12/23
dextromethorphan-guaifenesin 10 mg-100 mg/5 mL oral liquid (Tussin DM) 10 ml PO Q6HPRN PRN cough 11/12/23
diltiazem HCl 120 mg capsule,extended release 24 hr 120 mg PO DAILY Heart Disease/Condition 11/12/23
insulin regular human 100 unit/mL (3 mL) subcutaneous pen (Novolin R FlexPen) 1 sliding scale dose SC ACHS Diabetes 11/12/23
ipratropium 0.5 mg-albuterol 3 mg (2.5 mg base)/3 mL nebulization soln 3 ml inhalation R Q4HPRN PRN sob 11/12/23
olanzapine 15 mg tablet 20 mg PO HS Mental Health/Anxiety 11/12/23
omeprazole 20 mg capsule,delayed release 20 mg PO DAILY Gastrointestinal Issue 11/12/23
quetiapine 50 mg tablet (Seroquel) 50 mg PO HS Mental Health/Anxiety 11/12/23
tamsulosin 0.4 mg capsule (Flomax) 0.4 mg PO HS Urinary Issue 11/12/23
guaifenesin 600 mg tablet, extended release 12 hr (Mucus Relief ER) 600 mg PO [id number] PRN cough/conjestion 11/22/23
insulin glargine 100 unit/mL (3 mL) subcutaneous pen (Lantus Solostar U-100 Insulin) 18 unit SC DAILY Diabetes 11/22/23
metformin 1,000 mg tablet 1,000 mg PO BID Diabetes 11/22/23
azithromycin 250 mg tablet 250 mg PO MOWEFR@0800 Infection 12/14/23
starch (thickening) (Thick-It oral powder) 1 ea PO DAILY Supplement 12/14/23
furosemide 20 mg tablet (Lasix) 20 mg PO DAILY 01/10/24
prednisone 10 mg tablet 10 mg PO DIRECTED #22 tabs 01/16/24
Home Medication Changes
Prednisone tapering dose added
follow glu closely while tapering steroids with coverage as previously ordered
Pending Results: No
[2024-01-16 14:59] LABS: Glucose - Point of Care 152 mg/dl (70-99)
--- NOTE | 2024-01-16 15:30 | CM ---
Addendum entered by Vilma Tang RN 01/16/24 17:03:
Pilar's email: [email or web address]
Addendum entered by Vilma Tang RN 01/16/24 15:56:
ZACHARY [facility] Liaison aware of d/c tomorrow.
IMM completed and copy sent to Pilar Ohara at [facility].
Plan return to [facility] tomorrow with VN by ambulance at noon.
Original Note:
Patient from [facility] with Hx schizophrenia with Dx Acute COPD exacerbation/possible pneumonia, COVID + 01/09. Seen by Psych. Medsitter. PT recommends HH. OT; no needs.
Spoke with Pilar Ohara, Medical Pathologist [facility] ( [phone]); they are not able to accept the patient back this evening. Pilar requests patient return during the day tomorrow - earliest possible. They request d/c med list before
patient returns. The for report [phone] x [phone], fax [phone].
Per Floresita, national secretary; ambulance arranged for noon tomorrow.
Plan return to [facility] tomorrow by ambulance at noon.
[2024-01-16] MEDS: NOVOLOG FLEXPEN-LOW RESISTANCE 1 UNITS SC (17:28)
[2024-01-16] MEDS: NOVOLOG FLEXPEN-LOW RESISTANCE 2 UNITS SC (18:50)
[2024-01-16 19:01] LABS: Glucose - Point of Care 200 mg/dl (70-99)
[2024-01-16] MEDS: SEROQUEL 50 MG PO (19:26)
[2024-01-16] MEDS: ZYPREXA 20 MG PO (19:26)
[2024-01-16] MEDS: FLOMAX 0.4 MG PO (19:26)
[2024-01-16] MEDS: LIPITOR 20 MG PO (19:26)
[2024-01-16 21:52] LABS: Glucose - Point of Care 121 mg/dl (70-99)
--- NOTE | 2024-01-16 22:20 | PTCARENOTE ---
Caring for pt overnight. M/S. Pt OOB ad franky. NO c/o pain. No sob. Pt tolerating being on RA, 94%, no SOB noted, lungs diminished. Will monitor overnight. No other issues at this time.
[2024-01-16 23:28] VITALS: BP 127/66
--- NOTE | 2024-01-17 04:06 | DOWNTIME ---
There was a [employer] Client Benzene Washer Operator Downtime on 01/17/2024 from 0100 to 01/17/2024 at 0355. Downtime documentation of patient's care, including medication administrations, has been reconciled in the electronic record per guidelines. Refer to the
patient's paper chart under the miscellaneous tab to see printed paper medication records and downtime forms.
[2024-01-17] MEDS: SYNTHROID 200 MCG PO (05:20)
[2024-01-17 07:24] VITALS: BP 116/72
[2024-01-17] MEDS: SPIRIVA RESPIMAT 2.5 MCG 2 PUFF INH (07:37)
[2024-01-17] MEDS: ProAIR HFA INHALER 2 PUFF INH ×2 (07:37→11:28)
--- NOTE | 2024-01-17 07:40 | PN.DE.MGMTRT ---
Insulin Management
- -
01/17/2024: Diabetes Management Consult Follow up
63 year old male admitted with Acute COPD exacerbation/possible pneumonia and COVID Positive.
PMH: Developmental delay, Schizophrenia, HTN, hypothyroid, Chronic hypoxemic/hypercapnic respiratory failure, COPD on 2 L baseline, epilepsy, peripheral edema, GERD, BPH, glaucoma, left eye vision loss and T2DM.
Prior to admission his diabetes regimen included Lantus 18 units, Januvia 100 mg daily and Metformin 1000 mg BID with sliding scale Novolin R.
Current A1C 6.8%, was 7.3% on 11/27, Cr 0.4, eGFR >60. Pt states that Crystal at the group monitors his blood sugars and gives him his insulin.
Pt awake, A/O x3, sitting up on bed, offers no complaints, able to discuss diabetes mgt.
Remains on steroids, Pred 40 mg daily, contributing to Hyperglycemia.
Januvia resumed 01/14, will continue with AC NovoLog 6 units, decrease AM Lantus 20 units in AM (first reduced dose 01/16) with Metformin 1000 mg BID.
Will need insulin dose adjustment as steroids get tapered off.
Will follow for further needed adjustments; discussed with patient nurse. Patient for possible discharge today.
Diabetes History
- -
Type of Diabetes: 2 requiring insulin
Pre-Admission Diabetes Regimen
Lab Results
Hemoglobin A1c 6.8 % (4.0-5.6) H 01/11/24 04:13
Insulin Pump Settings
IP Diabetes Regimen
01/16/24 01/16/24 01/16/24
11:04 14:47 18:49
POC Glucose 74 152 H 200 H
01/16/24
21:41
POC Glucose 121 H
Meal type: Dinner
Meal type: Lunch
Meal type: Breakfast
Amount consumed: 100%
Amount consumed: 100%
Amount consumed: 100%
Patient Education
[2024-01-17 07:42] LABS: Glucose - Point of Care 124 mg/dl (70-99)
[2024-01-17] MEDS: MUCINEX 1200 MG PO (08:41)
[2024-01-17] MEDS: NOVOLOG FLEXPEN 6 UNITS SC ×2 (08:41→13:08)
[2024-01-17] MEDS: NOVOLOG FLEXPEN-LOW RESISTANCE SC ×2 (08:41→13:08)
[2024-01-17] MEDS: DEPAKOTE (12 HR RELEASE) 1000 MG PO (08:42)
[2024-01-17] MEDS: PROTONIX 40 MG PO (08:42)
[2024-01-17] MEDS: GLUCOPHAGE 1000 MG PO (08:42)
[2024-01-17] MEDS: DEPAKOTE (12 HR RELEASE) 250 MG PO (08:46)
[2024-01-17] MEDS: JANUVIA 100 MG PO (08:46)
[2024-01-17] MEDS: VITAMIN B-12 500 MCG PO (08:46)
[2024-01-17] MEDS: NORVASC 5 MG PO (08:46)
[2024-01-17] MEDS: HEPARIN 5000 UNITS SC (08:47)
[2024-01-17] MEDS: DELTASONE 40 MG PO (08:47)
[2024-01-17] MEDS: LANTUS 0.2 UNITS SC (08:56)
--- NOTE | 2024-01-17 10:30 | CM ---
Chart reviewed. Pt to be d/c today back to [facility].
Transport scheduled for noon.
Nurse confirmed pharmacy and facility will potato picker medications. Scripts to be faxed prior to d/c
[facility] Liaison made aware of d/c via TT
Report: [phone] x [phone]
.
Plan: Return to facility w/ [facility]
--- NOTE | 2024-01-17 10:53 | W.PN.HOSP.TC ---
Today's Communication/Plan
-
dc now
Assessment / Plan
Assessment / Plan
ON 2 L/MIN OF OXYGEN (chronically wears 2 L of oxygen as per his nurse) with SaO2 99%
Assessment/Plan
#Acute COPD exacerbation/possible exacerbated by viral pneumonia
#COPD on 2 L of home oxygen
#Acute on Chronic Hypoxic Respiratory Failure - IMPROVED
#COVID Positive
-Bilateral expiratory wheezing on examination
-Chronic hypoxemic/hypercapnic respiratory failure secondary to COPD on 2 L baseline
-Chest x-ray showed mild right basilar atelectasis and/or pneumonia
-Dexamethasone 4 mg every 12 --> decreased to Dexamethasone to 6 mg every 24 hours --> now on prednisone taper 40 mg and decrease by 10 mg every 72 hours to off.
-DuoNebs every 6 hours
-Ceftriaxone/azithromycin for 3 days was given
-Mucinex
-Appreciate ID -- no antivirals needed at this time
-Appreciate pulmonary
-10 days of isolation while inpatient
Chronic peripheral edema
Mild to moderate tricuspid regurgitation
Type 2 Diabetes Mellitus
-Hold metformin, Januvia
-Insulin sliding scale
-Continue Lantus and premeal
-Appreciate Diabetes HARDSCAPE FOREMAN
glu 104-198
[facility]red
Hypothyroidism
-Continue levothyroxine
Essential hypertension
-Continue amlodipine
GERD
-Continue omeprazole
BPH
-Continue tamsulosin
Schizophrenia
-Continue Seroquel, olanzapine, Depakote
Hyperlipidemia
-Continue statin
Full code
DVT prophylaxis�heparin
Regular diet
PT/OT consults
reviewed with MICHAEL Cevallos
Pt was unable to be [facility] Will be dc now. Pt appears comfortable. See dictated note
Anticipated Discharge: Today
Subjective/Interval History
-
Date of Service: January 17, 2024
Pt was to be discharged yesterday, but due to staffing issues at the care home, dc was held until today.
Objective Data
-
Vital Signs:
Vital Signs
Temp Pulse Resp BP Pulse Ox
97.8 F 84 16 122/71 95
01/17/24 07:24 01/17/24 07:42 01/17/24 07:42 01/17/24 08:46 01/17/24 07:42
I&O
01/16/24 01/17/24 01/18/24
06:59 06:59 06:59
Intake Total 240 / 240
Output Total 1000 / 1000 100 / 100
Balance -760 / -760 -100 / -100
Review of Systems
-
History Source: Patient and Coordinated Provider
Constitutional: Denies Fever
EENT: Reports No Symptoms Reported
Respiratory: Reports Cough
Cardiac: Reports No Symptoms; Denies Chest Pain
Abdomen/GI: Reports No Symptoms
Physical Exam
-
General: Well Developed, Well Nourished, No Apparent Distress and Comfortable
HEENT: Normocephalic, Atraumatic and Moist Mucous Membranes
Respiratory: Decreased Breath Sounds (Decreased breath sounds at the bases bilaterally)
Cardiac: Regular Rhythm
Breast: Deferred by me
GI: Soft, Nontender, Nondistended and Normal Bowel Sounds
Genito-urinary: Deferred by me
Musculoskeletal: No Clubbing, No Cyanosis and No Edema
Skin: Warm and Dry
Neuro: Awake, Alert, Oriented and AO x 3
[2024-01-17 11:50] VITALS: BP 120/73
[2024-01-17 13:17] LABS: Glucose - Point of Care 117 mg/dl (70-99)
--- NOTE | 2024-01-17 13:26 | PTCARENOTE ---
Pt for d.c. today to [facility]. RN gave report to [facility] RN, followed up by 2 phone calls to update Prescription for Prednisone sent electronically to pharmacy and pt was given lunch with mealtime insulin coverage as transport is delayed.
vital signs stable.
== END 2024-01-17 14:52 | disposition home health service (06) | DRG 193 ==
LOC: IMU 14:18
PROVIDERS: Hospitalist; ADMITTING PHYSICIAN Hospitalist; ATTENDING PHYSICIAN Internal Medicine; CONSULT PHYSICIAN Internal Medicine Critical Care Medicine; CONSULT PHYSICIAN Psychiatry & Neurology Psychiatry; EMERGENCY PHYSICIAN Emergency Medicine; FAMILY PHYSICIAN Family Medicine; OTHER PHYSICIAN Student in an Organized Health Care Education/Training Program
DX: J18.9 Pneumonia, unspecified organism (principal); J96.21 Acute and chronic respiratory failure with hypoxia; U07.1 COVID-19; J44.1 Chronic obstructive pulmonary disease with (acute) exacerbation; J96.11 Chronic respiratory failure with hypoxia; J96.12 Chronic respiratory failure with hypercapnia; J44.0 Chronic obstructive pulmonary disease with (acute) lower respiratory infection; E11.65 Type 2 diabetes mellitus with hyperglycemia; E03.9 Hypothyroidism, unspecified; I10 Essential (primary) hypertension; K21.9 Gastro-esophageal reflux disease without esophagitis; F20.9 Schizophrenia, unspecified; E78.5 Hyperlipidemia, unspecified; Z11.52 Encounter for screening for COVID-19
CPT/HCPCS: 71046; 80048; 80053; 82962; 83036; 83880; 85025; 87811; 93005; 94640; 96365; 96375; 97163; 97167; 99285

== ENCOUNTER 2024-02-02 15:46 | Inpatient (IN) | payer MEDICARE, OTHER, SELFPAY ==
[2024-02-02] VITALS (14 sets, daily range): BP systolic 102–175; BP diastolic 50–122; PULSE 2–88
--- NOTE | 2024-02-02 12:19 | ED.GENMED ---
History of Present Illness
General
Chief Complaint: Breathing Problem
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
Exam Limitations: none
Time Seen by Provider: 02/02/24 12:13
History of Present Illness
History of Present Illness:
See MDM
Past History
Past History
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 Limited vision on left eye. )
ED Past Surgical History: None
Social History
Tobacco: Former smoker
Alcohol: None
Drug: None
Personal: Single
Living: halfway
Employment: Disabled
Family History
Family History: Other (Reviewed and noncontributory)
Phy Exam
Physical Exam
Physical Exam:
See MDM
Scores
Heart Failure Risk
Heart Failure Risk Score: Not Applicable
Course
Orders/Labs/Results
Orders:
Orders
02/02/24 12:16
Albuterol Sulfate [Ventolin Nebules] 7.5 mg INH R NOW STA
Dexamethasone Sod Phosphate [Decadron] 10 mg IV NOW STA
Ipratropium Nebs [Atrovent Nebules] 1 mg INH R NOW STA
02/02/24 12:17
Electrocardiogram (*1) Urgent
Reason for Study: Shortness of Breath
EKG- Treatment ONCE
CR Chest Portable - 1 View Urgent
Comment:
Reason For Exam: SOB, COPD
Reason Study Needs to be Portable: Patient Unstable
02/02/24 12:28
Complete Blood Count/With Diff Urgent
Comprehensive Metabolic Panel Urgent
02/02/24 12:32
ABG [Arterial Blood Gas] Urgent
%Oxygen/Room Air: 4L
02/02/24 13:37
Insulin Aspart [NOVOLOG vial] 4 units SC NOW STA
Abnormal Lab Results
02/02/24 02/02/24
12:28 12:32
RBC 3.44 L 10^6/uL
(4.70-6.10)
Hgb 11.2 L g/dL
(13.0-18.0)
Hct 35.2 L %
(39.0-52.0)
MCV 102.3 H fL
(80.0-94.0)
MCH 32.6 H pg
(27.0-31.0)
MCHC 31.8 L g/dL
(33.0-37.0)
Plt Count 127 L 10^3/uL
(130-400)
MPV 11.4 H fL
(7.4-10.4)
Abs Immat Gran (auto) 0.3 H 10^3/uL
(0-0.05)
Absolute Lymphs (auto) 0.6 L 10^3/uL
(1.2-3.4)
Immature Gran % 4.7 H %
(0-0.5)
Lymphocytes % 9.3 L %
(20.5-51.1)
Monocytes % 10.0 H %
(1.7-9.3)
pH 7.33 L
(7.35-7.45)
pCO2 74 H* mmHg
(35-48)
pO2 75 L mmHg
(83-108)
HCO3 39.0 H mmol/L
(21-28)
Chloride 97 L mmol/L
(98-107)
Carbon Dioxide 36 H mmol/L
(22-30)
BUN 23 H mg/dl
(9-20)
Creatinine 0.5 L mg/dL
(0.7-1.3)
Glucose 306 H mg/dl
(70-99)
Calcium 8.3 L mg/dl
(8.4-10.2)
Total Protein 5.2 L g/dl
(6.3-8.2)
Albumin 3.1 L g/dl
(3.5-5.0)
02/02/24 12:28
02/02/24 12:28
Vital Signs
Initial and Last Documented VS:
Initial Vital Signs
Temp Pulse Resp BP Pulse Ox
99.3 F 95 18 123/57 92
02/02/24 12:14 02/02/24 12:14 02/02/24 12:14 02/02/24 12:14 02/02/24 12:14
Last Documented Vital Signs
Temp Pulse Resp BP Pulse Ox
99.3 F 95 18 123/57 92
02/02/24 12:14 02/02/24 12:14 02/02/24 12:14 02/02/24 12:14 02/02/24 12:14
MDM/Problems Addressed
Differential Diagnosis Includes:
HPI and MDM Narrative:
63-year-old male presenting with shortness of breath. Patient does have a history of COPD. Patient presents with EMS. EMS increased his home oxygen and provided a DuoNeb. On arrival, patient is tachypneic and has expiratory wheezing throughout.
He was recently discharged 1 month ago for COPD exacerbation that was likely made worse with COVID.
Will obtain ABG to get a sense for any evidence of hypercapnia. Will obtain chest x-ray looking for any evidence of concomitant pneumonia. Will give hour-long nebulizer treatment and start IV steroid
Physical exam
General: Well appearing and non-toxic
HEENT: protecting airway
Neck: appears supple
CV: No evidence of cyanosis. Regular rate and rhythm
Resp: Mild tachypnea, expiratory wheezing throughout
Abd: Non-distended
Extremities: No deformities
Neuro: alert
Psych: mildly anxious
Skin: Intact
Problems Addressed including Acute and Chronic Conditions affecting care:
1. COPD exacerbation
Acuity: acute
Prognosis: unstable
Details: Will start hour-long breathing treatment and provide IV steroids and obtain chest x-ray
2. Hyperglycemia
Acuity: acute
Prognosis: stable
Details: Likely in setting of recent steroid use. Will give dose of subcu insulin
Updates
1 PM patient has evidence of respiratory acidosis with CO2 retention on ABG. Will have respiratory evaluate for possible BiPAP versus high flow
1:40 PM patient tolerating BiPAP well.
Differential Diagnosis (but not limited to): COPD exacerbation, pneumonia, ACS
Testing considered: Troponin
Drug therapy (if applicable): OTC meds, please see d/c instruction regarding Rx drugs
Amount and/or Complexity of Data Reviewed
Clinical info obtained from: Patient
External data reviewed: N/A
Labs I independently reviewed (but not limited to): Hyperglycemia
Radiology: X-ray independently reviewed: Chest x-ray appears unchanged from prior
Pulse Ox: hypoxic
EKG independently reviewed: Sinus rhythm, right axis, no STEMI
Contract Administrator: Sinus rhythm
Critical Care: The high probability of a clinically significant, sudden or life threatening deterioration of the respiratory system(s) required my full and direct attention, intervention and personal management. The aggregate critical care time was
33 minutes. This time is in addition to time spent performing reported procedures but includes the following:
[x] Data Review and interpretation
[x] Patient assessment and monitoring of vital signs
[x] Documentation
[x] Medication orders and management
Risk of Complication:
Social Determinants of health: Good social support
Discussed with other providers: Hospitalist
Escalation of Care includes Admit/Obs: Given the COPD exacerbation with a respiratory acidosis requiring BiPAP, will admit
Occasional wrong word or 'sound a like' substitutions may have occurred due to the inherent limitations of voice recognition software. Read the chart carefully and recognize, using context, where substitutions have occurred.
*Critical Care Note
Total Time (30-74mins, 75-104mins- exclusive of procedures): 33 min
ED Attending Note
-
Portions of this chart may have been created with voice recognition software.� Occasional wrong word or��sound alike� substitutions may have occurred due to the inherent limitations of voice recognition software.
Discharge Plan
Departure
Patient Disposition: Admit
Date of Disposition: 02/02/24
Time of Disposition: 13:40
Admit to: Telemetry
Presentation/result/management discussed w/ accepting MD/DO: Hospitalist
Discharge Problem:
Acute respiratory failure with hypoxia and hypercarbia, Hyperglycemia
Prescriptions:
No Action
levothyroxine 200 MCG tablet
200 mcg PO DAILY@0600
acetaminophen [Tylenol] 325 mg Tablet
650 mg PO Q4HPRN PRN (Reason: mild pain)
atorvastatin 20 mg tablet
20 mg PO HS
polyethylene glycol 3350 [Miralax] 17 gram Powder In Packet
17 g PO DAILYPRN PRN (Reason: constipation)
divalproex 250 mg Tablet,Delayed Release (Dr/Ec)
250 mg PO BID@799,1999
Patient Comments:
11/22/2023: taken w/ 1000mg = 1250mg
divalproex 500 mg Tablet,Delayed Release (Dr/Ec)
1,000 mg PO BID@799,1999
Patient Comments:
11/22/2023: taken w/ 250mg = 1250mg
cyanocobalamin (vitamin B-12) 500 mcg Tablet
500 mcg PO DAILY
albuterol sulfate 90 mcg/actuation Hfa Aerosol Inhaler
2 puff INHALATION R Q4HPRN PRN (Reason: copd)
ipratropium-albuterol 0.5 mg-3 mg(2.5 mg base)/3 mL Solution For Nebulization
3 ml INHALATION R BID
Januvia 100 mg Tablet
100 mg PO DAILY
Acid Gone Antacid 95-358 mg/15 mL Suspension
15 ml PO DAILYPRN PRN (Reason: gerd)
ipratropium-albuterol 0.5 mg-3 mg(2.5 mg base)/3 mL Solution For Nebulization
3 ml INHALATION R Q4HPRN PRN (Reason: sob)
dextromethorphan-guaifenesin [Omaira-Tussin DM] 10-100 mg/5 mL Liquid
10 ml PO Q4HPRN PRN (Reason: cough)
dextromethorphan-guaifenesin [Tussin DM] 10-100 mg/5 mL Liquid
10 ml PO Q6HPRN PRN (Reason: cough)
amlodipine [Norvasc] 5 mg Tablet
5 mg PO DAILY
tamsulosin [Flomax] 0.4 mg Capsule
0.4 mg PO HS
omeprazole 20 mg Capsule,Delayed Release(Dr/Ec)
20 mg PO DAILY
diltiazem HCl 120 mg Capsule,Extended Release 24hr
120 mg PO DAILY
olanzapine 15 mg Tablet
20 mg PO HS
Novolin R FlexPen 100 unit/mL (3 mL) Insulin Pen
1 sliding scale dose SC ACHS
Rx Instructions:
100-150=3units, 151-200=6units, 201-250=9units, 251-300=12units, 301-350=14units
quetiapine [Seroquel] 50 mg Tablet
50 mg PO HS
metformin 1,000 mg Tablet
1,000 mg PO BID
insulin glargine [Lantus Solostar U-100 Insulin] 100 unit/mL (3 mL) Insulin Pen
18 unit SC DAILY
guaifenesin [Mucus Relief ER] 600 mg Tablet Extended Release 12hr
600 mg PO [id number] PRN (Reason: cough/conjestion)
azithromycin 250 mg Tablet
250 mg PO MOWEFR@0800
Thick-It Powder
1 ea PO DAILY
furosemide [Lasix] 20 mg Tablet
20 mg PO DAILY
prednisone 10 mg tablet
10 mg PO DIRECTED Qty: 18 0RF
Rx Instructions:
3 tabs daily x 3days, then 2 tabs daily x 3days, then 1 daily x3days, then stop
Referrals:
Rubio Edwards, [Family Provider] -
Interventions
Interventions:
*Risk Screen - Suicide Last Done: 02/02/24 12:14
*General Assessment Last Done: 02/02/24 12:14
*Neglect/Abuse Screening Last Done: 02/02/24 12:14
Discharge Date and Time
Print Language: GUATEMALAN
[2024-02-02] MEDS: DECADRON 10 MG IV (12:24)
[2024-02-02] MEDS: ATROVENT NEBULES 1 MG INH (12:24)
[2024-02-02] MEDS: VENTOLIN NEBULES 7.5 MG INH (12:25)
[2024-02-02 12:47] LABS: B.E. 10.5 mmol/L; O2 Saturation % 95.3 % (94-98); PO2 75 mmHg (83-108); pH 7.33 (7.35-7.45)
[2024-02-02 12:56] LABS: PCO2 74 mmHg (35-48)
[2024-02-02 13:02] LABS: ALT (SGPT) 16 U/L (0-50); AST (SGOT) 18 U/L (17-59); Albumin 3.1 g/dl (3.5-5.0); Alkaline Phosphatase 39 U/L (38-126); Blood Urea Nitrogen 23 mg/dl (9-20); Calcium 8.3 mg/dl (8.4-10.2); Carbon Dioxide 36 mmol/L (22-30); Chloride 97 mmol/L (98-107); Glucose 306 mg/dl (70-99); Potassium 4.6 mmol/L (3.5-5.1); Sodium 139 mmol/L (135-145); Total Bilirubin 0.3 mg/dl (0.2-1.3); Total Protein 5.2 g/dl (6.3-8.2); eGFR > 60.00
[2024-02-02 13:13] LABS: % Basophils 0.8 % (0-2); % Eosinophils 0.3 % (0-6); % Immature Granulocytes 4.7 % (0-0.5); % Lymphocytes 9.3 % (20.5-51.1); % Neutrophils 74.9 % (42.2-75.2); Absolute Basophils 0.1 10^3/uL (0-0.2); Absolute Immature Granulocytes 0.3 10^3/uL (0-0.05); Absolute Lymphocytes 0.6 10^3/uL (1.2-3.4); Absolute Monocytes 0.6 10^3/uL (0.1-0.6); Absolute Neutrophils 4.7 10^3/uL (1.4-6.5); Hematocrit 35.2 % (39.0-52.0); Hemoglobin 11.2 g/dL (13.0-18.0); Mean Corp Hgb Conc. 31.8 g/dL (33.0-37.0); Mean Corpuscular Hgb 32.6 pg (27.0-31.0); Mean Corpuscular Volume 102.3 fL (80.0-94.0); Mean Platelet Volume 11.4 fL (7.4-10.4); Nucleated Red Blood Cells % 0 % (-); Platelet Count 127 10^3/uL (130-400); Red Blood Cell Count 3.44 10^6/uL (4.70-6.10); Red Cell Dist. Width 13.8 % (11.5-14.5); White Blood Cell Count 6.2 10^3/uL (4.8-10.8)
[2024-02-02 14:01] LABS: Glucose - Point of Care 238 mg/dl (70-99)
[2024-02-02] MEDS: NOVOLOG vial 2 UNITS SC (14:03)
--- NOTE | 2024-02-02 15:01 | EDRN ---
14:10 This RN entered room to administer pts insulin. pt had removed BiPap and IV and was attempting to climb out of bed with admitting doc at bedside. Pts RA 02 84% Got pt back into bed, situated and new gown placed. Admitting doc to order
restraints for pt to stop pulling at bipap. New IV placed.
Spoke to respiratory, going to switch pt to midflow 02to see if he can tolerate it.
Pts main RN made aware
Charge nurse made aware
--- NOTE | 2024-02-02 16:40 | HPS.HSE ---
Addendum entered and electronically signed by Bonny Car MD 02/02/24 17:44:
I personally performed a history and physical exam of the patient and discussed management with the resident. I reviewed the resident's note and agree with the documented findings and plan of care HPI/CC.
GENERAL: well developed, well nourished, male in no apparent distress
HEENT: NC/AT--HI DONNY O2 in place
HEART: regular rate and rhythm, +S1, +S2
LUNGS : clear to auscultation bilaterally
ABDOM: soft, nontender, nondistended, + bowel sounds
EXT: no cyanosis, clubbing, or edema
NEUROLOGIC: developmentally delayed
Acute Hypercapnic and Hypoxic Respiratory Distress --pulled off BiPAP and then was on HI DONNY--with his pCO2 elevation, would try to get him off HI DONNY and back on lower O2 doses--possibly due to COPD exacerbation--COVID negative--await pulm
input--cont IV steroids--cont duonebs
Diabetes Mellitus type 2- Hold Metformin, continue Januvia-- Continue Lantus, Novolog, and start SS Insulin- 1999 jack diabetic diet- Repeat Accuhecks
Schizophrenia- Continue home meds, Seroquel, Olanzapine, Depakote
Hypothyroidism- Continue Levothyroxine
DVT PPx- Lovenox
CODE STATUS -- FULL CODE
Original Note:
Family Physician
-
Family Physician: Rubio Edwards
Chief Complaint
-
'Trouble Breathing'
History of Present Illness
History is limited secondary to developmental delay and patient agitation. Most of the history was obtained from speaking with the emergency physician and from transfer notes from [place] the alf the patient lives in.
From both sources the patient has complained of trouble breathing for the past 4 days. The patient was previously admitted to [facility] on January 09 for respiratory distress, was treated for COPD exacerbation and discharged on January 16.
During that admission he was started on antibiotics, but was then found to be COVID-19 positive. The antibiotics were discontinued and the patient was sent home on a steroid taper. The patient's normal home O2 requirements are 2 L but over the
past 2 days the patient has required 4 L of oxygen.
Upon initial assessment the patient would not answer questions, had pulled out his IV, and had pulled out his BiPAP. He was saturating at approximately 87% on room air. However once the BiPAP was reinstated, oxygen saturation returned to 100%.
After the patient was put in soft restraints and restarted on high flow oxygen the patient was able to answer some questions. Patient patient endorses a fever and cough that was productive of whitish sputum. He denied nausea vomiting diarrhea or
abdominal pain.
Medical History
Past Medical History
Past Medical History: Reports Other (COPD, GERD, HTN, Type 2 Diabetes Mellitus, Hypothyroidism, Schizophrenia, BPH, Glaucoma)
Past Surgical History: Reports None
Social History
Tobacco: Former Smoker
Living: Halfway ([facility])
Employment: Disabled
Family History
Family History: Not pertinent
Allergies / Home Medications
Allergies reflects when Allergies were last updated in [employer].
Home Medications with original date entered in [employer]
Allergy/Medication List:
None per notes from [facility].
Review of Systems
-
Unable to obtain full review of systems at this time due to: Other (developmental delay/agitation. )
History Source: Patient
Constitutional: Reports Fever
Respiratory: Reports Cough and Other (whitish sputum)
Cardiac: Reports No Symptoms
Abdomen/GI: Reports No Symptoms
Physical Exam
Vital Signs
Vital Signs
Temp Pulse Resp BP Pulse Ox
99.3 F 95 18 123/57 99
02/02/24 12:14 02/02/24 12:14 02/02/24 12:14 02/02/24 12:14 02/02/24 15:15
Physical Exam
General: Other (Pt in respiratory distress, and agitated while on room air. Saw patient again while on high-flow oxygen, and patient is in less distress and answering questions. )
HEENT: NormoCephalic, Anicteric and Atraumatic
Respiratory: Other (mild tachypnea and mild expiratory wheeze while on room air)
Cardiac: S1/S2 and Regular Rhythm
GI: Soft and Non Tender
Skin: Warm and Dry
Neuro: Awake and Alert
Psych: Anxious
Laboratory Results
-
02/02/24 12:28
02/02/24 12:28
Laboratory Results
pH 7.33 (7.35-7.45) L 02/02/24 12:32
pCO2 74 mmHg (35-48) H* 02/02/24 12:32
pO2 75 mmHg (83-108) L 02/02/24 12:32
HCO3 39.0 mmol/L (21-28) H 02/02/24 12:32
Total Bilirubin 0.3 mg/dl (0.2-1.3) 02/02/24 12:28
AST 18 U/L (17-59) 02/02/24 12:28
ALT 16 U/L (0-50) 02/02/24 12:28
Alkaline Phosphatase 39 U/L (38-126) 02/02/24 12:28
Data Reviewed
-
Diagnostic Radiology: Report Reviewed by me
Lab Data: Labs Reviewed by me
Impression/Plan
-
IMPRESSION:
1. Acute Hypercapnic and Hypoxic Respiratory Distress
- Admit to IMU due to oxygen requirements and developmental delay.
- Possibly due to COPD
- Consider COVID; Covid test and consider Remdesvir if positive.
- Pulmonary Consult
- Decadron/Duoneb
- Wean O2 to 2L as tolerated
2. Diabetes Mellitus
- Hold Metformin, continue Januvia.
- Continue Lantus, Novolog, and start SS Insulin
- 2000 jack diabetic diet
- Repeat Accuhecks
3. Schizophrenia
- Continue home meds, Seroquel, Olanzapine, Depakote
4. Hypothyroidism
- Continue Levothyroxine
5. DVT PPx
- Lovenox
[2024-02-02 17:10] LABS: COVID-19 Antigen Negative (Negative)
--- NOTE | 2024-02-02 17:45 | CON.PUL ---
Consultation
Consultation Request
Date/Time Consultation Requested: 02/01
Date/Time Consultation Performed: 02/01
Reason for Consultation: Pulmonary
Medical History
-
History of Present Illness:
History obtained from the patient but also from reviewing hospital records. Patient is a 63-year-old male who was recently discharged 01/17/2024 for COPD exacerbation. At baseline he is on 2 L of oxygen, lives in a correction. Patient was brought
to [facility] by ambulance due to increased oxygen requirement up to 4 L. Upon arrival, temperature 99.3, pulse 95, breathing at 18, blood pressure 123/57, 92%. Per ED records there was expiratory wheezing throughout. Patient was admitted
for COPD exacerbation. It is noted that patient developed worsening hypoxia, requiring BiPAP for respiratory acidemia and then transition to high flow. We are asked to comment on his pulmonary process 02/02/2024
Presently he is comfortable, denies chest pain, nausea, abdominal pain. He does admit to a chronic cough, denies hemoptysis. He states he is able to walk, denies any falls. He does not smoke
.
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
Past Medical History
Past Medical History: None (See above)
Past Surgical History: None (See above)
Social History
Tobacco: Former Smoker (Quit 28 years ago)
Alcohol: None
Drug: None
Personal: Single
Living: Alone (custodial)
Employment: Disabled
Family History
Family History: Other (Not available)
Allergies / Home Medications
Allergies
Allergy/AdvReac Type Severity Reaction Status Date / Time
No Known Allergies Allergy Verified 02/02/24 12:21
Home Medications
�Medication �Instructions �Recorded �Confirmed �Last Taken �Type
levothyroxine 200 mcg tablet 200 mcg PO DAILY@0600 Thyroid 07/08/19 02/02/24 02/01/24 History
acetaminophen 325 mg tablet 650 mg PO Q4HPRN PRN mild pain 04/24/23 02/02/24 02/01/24 History
(Tylenol)
atorvastatin 20 mg tablet 20 mg PO HS High Cholesterol 04/24/23 02/02/24 02/01/24 History
polyethylene glycol 3350 17 gram 17 g PO DAILYPRN PRN constipation 04/25/23 02/02/24 01/29/24 History
oral powder packet (Miralax)
cyanocobalamin (vitamin B-12) 500 500 mcg PO DAILY Supplement 06/17/23 02/02/24 02/01/24 History
mcg tablet
divalproex 250 mg tablet,delayed 250 mg PO BID@0800,1999 mental 06/17/23 02/02/24 02/01/24 History
release health
divalproex 500 mg tablet,delayed 1,000 mg PO BID@08 mental 06/17/23 02/02/24 02/01/24 History
release health
albuterol sulfate 90 mcg/actuation 2 puff inhalation R Q4HPRN PRN copd 09/13/23 02/02/24 12/14/23 History
aerosol inhaler
ipratropium 0.5 mg-albuterol 3 mg 3 ml inhalation R BID 09/27/23 02/02/24 02/01/24 History
(2.5 mg base)/3 mL nebulization Lung/Breathing Issues
soln
sitagliptin phosphate 100 mg 100 mg PO DAILY Diabetes 10/14/23 02/02/24 02/01/24 History
tablet (Januvia)
aluminum hydrox-magnesium carb 95 15 ml PO DAILYPRN PRN gerd 11/12/23 02/02/24 01/29/24 History
mg-358 mg/15 mL oral suspension
(Acid Gone Antacid)
amlodipine 5 mg tablet (Norvasc) 5 mg PO DAILY Blood Pressure 11/12/23 02/02/24 02/01/24 History
dextromethorphan-guaifenesin 10 10 ml PO Q4HPRN PRN cough 11/12/23 02/02/24 02/01/24 History
mg-100 mg/5 mL oral liquid
(Omaira-Tussin DM)
diltiazem HCl 120 mg 120 mg PO DAILY Heart 11/12/23 02/02/24 02/01/24 History
capsule,extended release 24 hr Disease/Condition
insulin regular human 100 unit/mL 1 sliding scale dose SC ACHS 11/12/23 02/02/24 02/01/24 History
(3 mL) subcutaneous pen (Novolin R Diabetes
FlexPen)
ipratropium 0.5 mg-albuterol 3 mg 3 ml inhalation R Q4HPRN PRN sob 11/12/23 02/02/24 01/31/24 History
(2.5 mg base)/3 mL nebulization
soln
omeprazole 20 mg capsule,delayed 20 mg PO DAILY Gastrointestinal 11/12/23 02/02/24 02/01/24 History
release Issue
quetiapine 50 mg tablet (Seroquel) 50 mg PO HS Mental Health/Anxiety 11/12/23 02/02/24 02/01/24 History
tamsulosin 0.4 mg capsule (Flomax) 0.4 mg PO HS Urinary Issue 11/12/23 02/02/24 02/01/24 History
guaifenesin 600 mg tablet, 600 mg PO [id number] PRN 11/22/23 02/02/24 02/01/24 History
extended release 12 hr (Mucus cough/conjestion
Relief ER)
metformin 1,000 mg tablet 1,000 mg PO BID Diabetes 11/22/23 02/02/24 02/01/24 History
azithromycin 250 mg tablet 250 mg PO MOWEFR@0800 Infection 12/14/23 02/02/24 01/31/24 History
furosemide 20 mg tablet (Lasix) 20 mg PO DAILY 01/10/24 02/02/24 02/01/24 History
fexofenadine 180 mg tablet 180 mg PO DAILY 02/02/24 02/02/2424 History
insulin glargine 100 unit/mL (3 18 unit SC DAILY 02/02/24 02/02/24 02/01/24 History
mL) subcutaneous pen (Lantus
Solostar U-100 Insulin)
olanzapine 20 mg tablet 20 mg PO QPM 02/02/24 02/02/24 02/01/24 History
prednisone 10 mg tablet 10 mg PO DAILY 02/02/24 02/02/24 Unknown History
Review of Systems
-
All other systems: Negative unless noted
Vitals / Labs / Diagnostic Testing
Vital Signs
Temp Pulse Resp BP Pulse Ox
99.3 F 99 24 137/76 92
02/02/24 12:14 02/02/24 17:30 02/02/24 17:30 02/02/24 17:19 02/02/24 17:30
Lab Data
02/02/24 12:28
02/02/24 12:28
Laboratory Results
02/02/24
12:32
pH 7.33 L
pCO2 74 H*
pO2 75 L
HCO3 39.0 H
O2 Delivery Level
Diagnostic Testing:
Physical Exam
-
HEENT: Normocephalic and Anicteric
Cardiovascular: S1/S2, Regular Rhythm, Murmur (n), Rub (n) and Peripheral Edema (n)
Respiratory: Wheeze (Few scattered), Rales (n), Rhonchi (with cough) and Non-Labored Respirations
GI: Soft, Non Distended and Non Tender
Neurology: Awake, Alert and No Motor Deficits (Able to sit up without assistance)
Skin: Good Color and Other (Mild pallor)
General: Comfortable
Assessment
-
63-year-old male with a history of COPD on 2 L O2, diabetes, hypothyroid, GERD, BPH, schizophrenia recently discharged 01/17/2024 for COPD exacerbation. Patient has evidence of chronic hypoxia, chronic hypercapnia. Now admitted for COPD
exacerbation and hypoxia requiring high flow oxygen. We are asked to comment on pulmonary process
Acute COPD exacerbation
Failed outpatient therapy, recently discharged 01/17/2024
Recent COVID-positive 01/10/2024
Acute on chronic hypercapnia, more or less compensated
Hyperglycemia
Recent right lower lobe pneumonia per CT chest September 2023
Right hilar lymphadenopathy
Aspiration syndrome
Abnormal VSE 09/28/2023
Conditions present prior to admission:
COPD/O2 2 L-Dr. Addison.
FEV1 32%
Chronic hypercapnia
Baseline CO2 70s
KATTY total index 6.1, desaturation jonah 78%
Former smoker.
Diabetes.
Hypothyroid.
GERD.
BPH.
Schizophrenia.
Cholecystectomy.
Plan/recommendations
At this time, patient appears to be comfortable
There is some mild wheezing on exam
Reviewed recent hospital stay
Reviewed ED visit
Patient with little pulmonary reserve given baseline FEV1 of 32%
Hyperdynamic LV also noted on recent echocardiogram April 2023
Aspiration risk noted
Moving forward
Presently he appears to be comfortable, conversant
No use of accessory muscles
Significant oxygen requirement noted. I suspect this is due to poor pulmonary reserve in the setting of recurrent aspiration risk
Given his history of untreated sleep apnea, nocturnal hypoxia, I suspect this may also be contributing to his pulmonary process with hypoventilation
Recent bout of COVID noted 2 weeks ago
Continue with steroids for now
Continue with azithromycin, anti-inflammatory dosing
Nebulized therapy [id number]
Aspiration precautions
Doubt component of heart failure
Chest x-ray does suggest slight increased patchy infiltrate at the base. Per my review appears to be more consistent with airways disease
CT chest without evidence of obvious bronchiectasis but I suspect mucous plugging on the CT chest from September 2023
Acapella device
Consider 3% saline if he does not respond to the above
Monitor blood sugar
Insulin supplementation as needed
DVT prophylaxis-Lovenox therapy
GI prophylaxis-on pantoprazole
The patient was last seen by Dr. Addison 09/06/2023 and subsequently by Maribell Cochran 10/24/2023 and Amrita Jackson 12/06/23-has appointment 02/12/[address] Addison
Will follow
Diagnostic data:
Chest x-ray 01/10/2024-mild right basilar pneumonia progressed from prior
CXR 11/22/23- worsening RUL pemonia.Small right pleual effusion. grossly stable bibasilar atelectasis-CXR 11/12/23- patchy opacity in the right lung base which may represent atelectasis or pneumonia. no large pleural effusion or pneumothorax.-
CXR 10/14/2023: Improved aeration of the right lower lung field concerning for improved pneumonia. Flattening of the diaphragms consistent with COPD.VSE 09/28/2023: No aspiration. Deep transient penetration of thin liquid.
CT chest PE study 09/13/2023: No PE. Small right pleural effusion. Patchy airspace opacity in the inferior right lower lobe suspicious for mild pneumonia. Mildly enlarged right hilar lymph node, nonspecific but favored to be reactive.
CXR 06/17/23: Severe left basilar pna.
LDCT 06/14/23: Confluent consolidation within the posteroinferior lingula. Severe confluent consolidation within the basilar and lateral segments. Posterior aspiration related.VSE 06/07/23: No aspiration
CT Chest 03/24/21: Mild pericardial thickening and/or tiny pericardial effusion. Small right lower lobe groundglass opacity seen on prior study no longer identified. Approximate 1.3 cm anterior mediastinal lymph node.
Lower extremity ultrasound 12/16/2023-no evidence for DVT in the left lower extremity
Echo 04/28/23: Hyperdynamic LV systolic function. EF 70-75%. Mild .
Echocardiogram 12/15/2023-EF 65-70%, mild aortic stenosis
PFT (only able to perform [place]) 09/16/21: FVC 1.83/44%, FEV1 1.00/32%, ratio 55%. Severe obstruction and suggestive of severe restriction.Spirometry 02/10/2021: Reviewed, FEV1/FVC 67%, FEV1 1.13 L-35%, FVC 2.23 L -53%.Mixed ventilatory defect.
Moderate to severe airflow obstruction with a restriction.
PFT 02/15/19: FEV1 0.96 L 30%, FVC 1.90 L 44%, ratio 51. Unable to perform study volumes/DLCO.
ABG 12/14/2023--93/82/7 0.31
HST 02/06/19: REESE 6.1, O2 jonah 78%, 75.4% of the study was spent with saturation below 90%.
OVERNIGHT PULSE OXIMETER:�Nocturnal O2 study 10/15/18: Lowest 63%, time spent below 88% was 0.4%. DEI 1.0.
[2024-02-02 17:55] LABS: Glucose - Point of Care 201 mg/dl (70-99)
[2024-02-02] MEDS: NovoLIN R Flexpen 9 UNITS SC (18:08)
[2024-02-02] MEDS: LOVENOX 40 MG SC (18:08)
[2024-02-02] MEDS: SAFETUSSIN DM (SUGAR/ALCOHOL FREE) 200 MG PO (18:10)
[2024-02-02] MEDS: ZYPREXA 20 MG PO (18:16)
--- NOTE | 2024-02-02 18:28 | PTCARENOTE ---
Received patient from ER via stretcher with acute hypercapnic respiratory failure. Upon arrival patient placed on 10 liters midflow, restraints removed patient ate dinner, patient was having hallucinations. Med sitter obtained for safety. Patient
not pulling of oxygen at this time. Denying pain when asked. Compliant with plan of care. Remaining admission to be endorsed to nightshift.
[2024-02-02] MEDS: DUONEB 3 ML INH (19:28)
[2024-02-02 21:43] LABS: Glucose - Point of Care 270 mg/dl (70-99)
[2024-02-02] MEDS: SEROQUEL 50 MG PO (21:49)
[2024-02-02] MEDS: DECADRON 4 MG IV (21:49)
[2024-02-02] MEDS: LIPITOR 20 MG PO (21:50)
[2024-02-02] MEDS: FLOMAX 0.4 MG PO (21:50)
[2024-02-02] MEDS: DEPAKOTE (12 HR RELEASE) 1000 MG PO (21:50)
[2024-02-02] MEDS: DEPAKOTE (12 HR RELEASE) 250 MG PO (21:50)
[2024-02-02] MEDS: NovoLIN R Flexpen 12 UNITS SC (21:53)
[2024-02-03] VITALS (14 sets, daily range): BP systolic 111–162; BP diastolic 51–92; PULSE 81–83; O2SAT 88–96
[2024-02-03] MEDS: SYNTHROID 200 MCG PO (05:33)
[2024-02-03] MEDS: DECADRON 4 MG IV ×2 (05:33→14:07)
[2024-02-03 05:49] LABS: % Basophils 0.5 % (0-2); % Immature Granulocytes 4.8 % (0-0.5); % Lymphocytes 9.9 % (20.5-51.1); % Monocytes 5.1 % (1.7-9.3); % Neutrophils 79.7 % (42.2-75.2); Absolute Immature Granulocytes 0.2 10^3/uL (0-0.05); Absolute Lymphocytes 0.4 10^3/uL (1.2-3.4); Absolute Monocytes 0.2 10^3/uL (0.1-0.6); Absolute Neutrophils 3.5 10^3/uL (1.4-6.5); Hematocrit 33.1 % (39.0-52.0); Hemoglobin 11.1 g/dL (13.0-18.0); Mean Corp Hgb Conc. 33.5 g/dL (33.0-37.0); Mean Corpuscular Hgb 32.6 pg (27.0-31.0); Mean Corpuscular Volume 97.1 fL (80.0-94.0); Mean Platelet Volume 10.4 fL (7.4-10.4); Nucleated Red Blood Cells % 0 % (-); Platelet Count 124 10^3/uL (130-400); Red Blood Cell Count 3.41 10^6/uL (4.70-6.10); Red Cell Dist. Width 13.2 % (11.5-14.5); White Blood Cell Count 4.3 10^3/uL (4.8-10.8)
[2024-02-03 05:59] LABS: Blood Urea Nitrogen 22 mg/dl (9-20); Carbon Dioxide 38 mmol/L (22-30); Chloride 94 mmol/L (98-107); Glucose 209 mg/dl (70-99); Potassium 4.4 mmol/L (3.5-5.1); Sodium 138 mmol/L (135-145); eGFR > 60.00
--- NOTE | 2024-02-03 06:12 | PTCARENOTE ---
Patient talking to self and seeing 'twigs'. Slept maybe one hour total. Asks for large amounts of food, water and soda. 10L midflow in place, non-prod cough. denies SOB or any pain. Med sitter present. Pt impulsive when needing to void. Pt takes off
02. Sp02 low 80s when 02 is off. NSR/ST on tele. Bed alarm set for safety. call mullins within reach.
[2024-02-03] MEDS: DUONEB 3 ML INH ×2 (07:22→20:21)
[2024-02-03 07:57] LABS: Glucose - Point of Care 238 mg/dl (70-99)
[2024-02-03] MEDS: NovoLIN R Flexpen 9 UNITS SC (08:19)
[2024-02-03] MEDS: LANTUS 0.18 UNITS SC (08:19)
[2024-02-03] MEDS: PROTONIX 40 MG PO (08:20)
[2024-02-03] MEDS: CLARITIN 10 MG PO (08:20)
[2024-02-03] MEDS: CARDIZEM CD 120 MG PO (08:21)
[2024-02-03] MEDS: DEPAKOTE (12 HR RELEASE) 1000 MG PO ×2 (08:21→20:46)
[2024-02-03] MEDS: VITAMIN B-12 500 MCG PO (08:22)
[2024-02-03] MEDS: NORVASC 5 MG PO (08:24)
[2024-02-03] MEDS: LASIX 20 MG PO (08:24)
[2024-02-03] MEDS: DEPAKOTE (12 HR RELEASE) 250 MG PO ×2 (08:24→20:46)
[2024-02-03] MEDS: JANUVIA 100 MG PO (08:25)
--- NOTE | 2024-02-03 09:17 | W.PN.HOSP.TC ---
Today's Communication/Plan
-
wean steroids
wean O2
PT/OT
Assessment / Plan
Assessment / Plan
pt is a 63 year old male
Acute Hypercapnic and Hypoxic Respiratory Distress --pulled off BiPAP in ED and then was on HI ODNNY--with his pCO2 elevation, would try to get him off HI DONNY and back on lower O2 doses (on 8L as of 02/03/24)--possibly due to COPD exacerbation--COVID
negative--apprec pulm input--wean IV steroids--cont duonebs
Diabetes Mellitus type 2- restart Metformin, continue Januvia-- Continue Lantus, Novolog, and start SS Insulin- 1999 jack diabetic diet- Repeat Accuhecks
Schizophrenia- Continue home meds, Seroquel, Olanzapine, Depakote
Hypothyroidism- Continue Levothyroxine
DVT PPx- Lovenox
CODE STATUS -- FULL CODE
keep in IMU until O2 requirements better
Anticipated Discharge: > 48 hours
Subjective/Interval History
-
Date of Service: February 03, 2024
pt doing better--on 8L O2 and off HI DONNY--no c/o
Objective Data
-
Labs:
Laboratory Results
02/03/24
05:30
WBC 4.3 L
Hgb 11.1 L
Hct 33.1 L
Plt Count 124 L
Sodium 138
Potassium 4.4
Chloride 94 L
Carbon Dioxide 38 H
BUN 22 H
Creatinine 0.4 L
Glucose 209 H
Calcium 9.0
Vital Signs:
max temp for 24 hours
02/02/24
12:14
Temp 99.3 F
Vital Signs
Temp Pulse Resp BP Pulse Ox
97.7 F 94 18 133/79 99
02/03/24 07:25 02/03/24 08:21 02/03/24 07:28 02/03/24 08:21 02/03/24 07:28
I&O
02/02/24 02/03/24 02/04/24
06:59 06:59 05:59
Intake Total 1520 / 1520
Output Total 2225 / 2225
Balance -705 / -705
Review of Systems
-
All other systems: Reviewed and negative
Physical Exam
-
General: Well Developed, Well Nourished and No Apparent Distress
HEENT: Normocephalic, Atraumatic and Oxygen
Respiratory: Decreased Breath Sounds; Negative Wheezes
Cardiac: Regular Rhythm and S1/S2; Negative Murmur
GI: Soft, Nontender, Nondistended and Normal Bowel Sounds
Musculoskeletal: No Clubbing, No Cyanosis and No Edema
Neuro: Awake and Alert
Psych: Calm
[2024-02-03 11:29] LABS: Glucose - Point of Care 293 mg/dl (70-99)
--- NOTE | 2024-02-03 11:32 | PTCARENOTE ---
Patient AAOx1-2. +hallucinations, confusion at times. Reoriented, bed alarm and medsitter on for safety. Patient currently OOB to chair. On 8L midflow, desats to mid 80s with any exertion. Great participation with IS. Patient constantly hungry and
requesting food and coffee. Educated about current diet and limits. Call mullins in patients hand. Continuing to closely monitor patient.
[2024-02-03] MEDS: NovoLIN R Flexpen 12 UNITS SC (11:40)
--- NOTE | 2024-02-03 13:16 | W.PN.PUL3 ---
Today's Communication / Plan
-
Continue to wean oxygen
Aspiration precautions
Slow wean of steroids
PT/OT
Assessment
-
63-year-old male with a history of COPD on 2 L O2, diabetes, hypothyroid, GERD, BPH, schizophrenia recently discharged 01/17/2024 for COPD exacerbation. Patient has evidence of chronic hypoxia, chronic hypercapnia. Now admitted for COPD
exacerbation and hypoxia requiring high flow oxygen. We are asked to comment on pulmonary process
Acute COPD exacerbation
Failed outpatient therapy, recently discharged 01/17/2024
Recent COVID-positive 01/10/2024
Acute on chronic hypercapnia, more or less compensated
Hyperglycemia
Recent right lower lobe pneumonia per CT chest September 2023
Right hilar lymphadenopathy
Aspiration syndrome
Abnormal VSE 09/28/2023
Conditions present prior to admission:
COPD/O2 2 L-Dr. Addison.
FEV1 32%
Chronic hypercapnia
Baseline CO2 70s
KATTY total index 6.1, desaturation jonah 78%
Former smoker.
Diabetes.
Hypothyroid.
GERD.
BPH.
Schizophrenia.
Cholecystectomy.
Plan/recommendations
At this time, patient appears to be comfortable
There is some mild wheezing on exam, but improved
95% on 5 L
Reviewed recent hospital stay
Reviewed ED visit
Patient with little pulmonary reserve given baseline FEV1 of 32%
Hyperdynamic LV also noted on recent echocardiogram April 2023
Aspiration risk noted
Moving forward
Presently he appears to be comfortable, conversant
No use of accessory muscles
Significant oxygen requirement noted. I suspect this is due to poor pulmonary reserve in the setting of recurrent aspiration risk
Improved down to 5 L
Given his history of untreated sleep apnea, nocturnal hypoxia, I suspect this may also be contributing to his pulmonary process with hypoventilation
Recent bout of COVID noted 2 weeks ago
Continue with steroids for now, slow wean
Continue with azithromycin, anti-inflammatory dosing
Nebulized therapy [id number]
Aspiration precautions
Doubt component of heart failure
Chest x-ray does suggest slight increased patchy infiltrate at the base. Per my review appears to be more consistent with airways disease
CT chest without evidence of obvious bronchiectasis but I suspect mucous plugging on the CT chest from September 2023
Acapella device
Consider 3% saline if he does not respond to the above. Hold for now
Monitor blood sugar
Insulin supplementation as needed
DVT prophylaxis-Lovenox therapy
GI prophylaxis-on pantoprazole
The patient was last seen by Dr. Addison 09/06/2023 and subsequently by Maribell Cochran 10/24/2023 and Amrita Jackson 12/06/23-has appointment 02/12/2024 at [address] Addison
Will follow
Diagnostic data:
Chest x-ray 01/10/2024-mild right basilar pneumonia progressed from prior
CXR 11/22/23- worsening RUL pemonia.Small right pleual effusion. grossly stable bibasilar atelectasis-CXR 11/12/23- patchy opacity in the right lung base which may represent atelectasis or pneumonia. no large pleural effusion or pneumothorax.-
CXR 10/14/2023: Improved aeration of the right lower lung field concerning for improved pneumonia. Flattening of the diaphragms consistent with COPD.VSE 09/28/2023: No aspiration. Deep transient penetration of thin liquid.
CT chest PE study 09/13/2023: No PE. Small right pleural effusion. Patchy airspace opacity in the inferior right lower lobe suspicious for mild pneumonia. Mildly enlarged right hilar lymph node, nonspecific but favored to be reactive.
CXR 06/17/23: Severe left basilar pna.
LDCT 06/14/23: Confluent consolidation within the posteroinferior lingula. Severe confluent consolidation within the basilar and lateral segments. Posterior aspiration related.VSE 06/07/23: No aspiration
CT Chest 12/22/21: Mild pericardial thickening and/or tiny pericardial effusion. Small right lower lobe groundglass opacity seen on prior study no longer identified. Approximate 1.3 cm anterior mediastinal lymph node.
Lower extremity ultrasound 12/16/2023-no evidence for DVT in the left lower extremity
Echo 04/28/23: Hyperdynamic LV systolic function. EF 70-75%. Mild .
Echocardiogram 12/15/2023-EF 65-70%, mild aortic stenosis
PFT (only able to perform [place]) 09/16/21: FVC 1.83/44%, FEV1 1.00/32%, ratio 55%. Severe obstruction and suggestive of severe restriction.Spirometry 02/10/2021: Reviewed, FEV1/FVC 67%, FEV1 1.13 L-35%, FVC 2.23 L -53%.Mixed ventilatory defect.
Moderate to severe airflow obstruction with a restriction.
PFT 02/15/19: FEV1 0.96 L 30%, FVC 1.90 L 44%, ratio 51. Unable to perform study volumes/DLCO.
ABG 12/14/2023--93/82/7 0.31
HST 02/06/19: REESE 6.1, O2 jonah 78%, 75.4% of the study was spent with saturation below 90%.
OVERNIGHT PULSE OXIMETER:�Nocturnal O2 study 10/15/18: Lowest 63%, time spent below 88% was 0.4%. DEI 1.0.
Subjective Data
-
Date of Service:
Date of Service: February 03, 2024
Subjective:
Patient is without complaints. He has a mild cough but otherwise appears to be in good spirits. He admits to mild shortness of breath but is not limited. Denies nausea, abdominal pain
Objective Data
Data Reviewed
Vital Signs / I&O / Oxygen:
Vital Signs
Temp Pulse Resp BP Pulse Ox
97.5 F 79 12 130/87 97
02/03/24 11:15 02/03/24 12:45 02/03/24 12:45 02/03/24 12:00 02/03/24 12:45
Intake and Output
02/02/24 02/03/24 02/04/24
06:59 06:59 05:59
Intake Total 1520 / 1520
Output Total 2225 / 2225 800 / 800
Balance -705 / -705 -800 / -800
SaO2 97
Nasal Cannula flow liters per 5
minute
Physical Exam
General: Comfortable
HEENT: Normocephalic and Anicteric
Cardiovascular: S1-S2, Regular Rhythm and Murmur (n)
Respiratory: Wheeze (Minimal), Crackles (Mild at base), Rhonchi (Few) and Non-Labored Respirations
GI: Soft, Non Distended and Non Tender
Neurology: Awake, Alert and No Motor Deficits
Skin: Cyanosis (n), Jaundice (n) and Other (Mild pallor)
Labs/Micro/Reports
Lab Data
02/03/24 05:30
02/03/24 05:30
[2024-02-03 15:56] LABS: Glucose - Point of Care 373 mg/dl (70-99)
[2024-02-03] MEDS: NOVOLOG FLEXPEN-HIGH RESISTANCE SC (16:17)
[2024-02-03] MEDS: NovoLIN R Flexpen 18 UNITS SC (16:18)
[2024-02-03] MEDS: LOVENOX 40 MG SC (18:06)
[2024-02-03] MEDS: ZYPREXA 20 MG PO (18:07)
[2024-02-03] MEDS: MUCINEX 600 MG PO (20:46)
[2024-02-03] MEDS: SAFETUSSIN DM (SUGAR/ALCOHOL FREE) 200 MG PO (20:46)
[2024-02-03] MEDS: LIPITOR 20 MG PO (20:46)
[2024-02-03] MEDS: FLOMAX 0.4 MG PO (20:46)
[2024-02-03] MEDS: SEROQUEL 50 MG PO (20:46)
[2024-02-03 21:26] LABS: Glucose - Point of Care 297 mg/dl (70-99)
[2024-02-04] VITALS (10 sets, daily range): BP systolic 117–157; BP diastolic 67–86
[2024-02-04] MEDS: DECADRON 4 MG IV ×2 (02:15→13:28)
--- NOTE | 2024-02-04 04:24 | PTCARENOTE ---
Patient slept for a few hours. desat to low 80s while sleeping on 6L midflow, Ventimask utilized as pt was breathing via his mouth. Pt woke up asking for food and soda. re-oriented pt to situation. pt knows he is in the hospital. denies any pain, on
3-6L midflow while awake. hallucinations continues. voiding via urinal. NSR on tele. med sitter in room for safety to remind pt to call for assistance prior to getting out of bed. turning self in bed. call mullins and tray table within reach.
[2024-02-04 04:50] LABS: Hematocrit 32.4 % (39.0-52.0); Hemoglobin 10.9 g/dL (13.0-18.0); Mean Corp Hgb Conc. 33.6 g/dL (33.0-37.0); Mean Corpuscular Hgb 32.5 pg (27.0-31.0); Mean Corpuscular Volume 96.7 fL (80.0-94.0); Platelet Count 140 10^3/uL (130-400); Red Blood Cell Count 3.35 10^6/uL (4.70-6.10); Red Cell Dist. Width 13.2 % (11.5-14.5); White Blood Cell Count 6.5 10^3/uL (4.8-10.8)
[2024-02-04] MEDS: SYNTHROID 200 MCG PO (05:43)
[2024-02-04 06:35] LABS: Blood Urea Nitrogen 27 mg/dl (9-20); Chloride 89 mmol/L (98-107); Glucose 221 mg/dl (70-99); Magnesium 1.8 mg/dl (1.6-2.3); Potassium 4.6 mmol/L (3.5-5.1); Sodium 136 mmol/L (135-145); eGFR > 60.00
[2024-02-04 06:45] LABS: Carbon Dioxide 37 mmol/L (22-30)
[2024-02-04 07:48] LABS: Glucose - Point of Care 240 mg/dl (70-99)
[2024-02-04] MEDS: DUONEB 3 ML INH ×2 (08:03→19:39)
[2024-02-04] MEDS: NOVOLOG FLEXPEN-HIGH RESISTANCE 4 UNITS SC (08:47)
[2024-02-04] MEDS: DEPAKOTE (12 HR RELEASE) 1000 MG PO ×2 (08:48→20:12)
[2024-02-04] MEDS: LASIX 20 MG PO (08:48)
[2024-02-04] MEDS: JANUVIA 100 MG PO (08:48)
[2024-02-04] MEDS: CARDIZEM CD 120 MG PO (08:48)
[2024-02-04] MEDS: CLARITIN 10 MG PO (08:49)
[2024-02-04] MEDS: VITAMIN B-12 500 MCG PO (08:49)
[2024-02-04] MEDS: PROTONIX 40 MG PO (08:49)
[2024-02-04] MEDS: NORVASC 5 MG PO (08:49)
[2024-02-04] MEDS: LANTUS 0.18 UNITS SC (08:57)
[2024-02-04] MEDS: DEPAKOTE (12 HR RELEASE) 250 MG PO ×2 (08:58→20:12)
--- NOTE | 2024-02-04 09:07 | W.PN.HOSP.TC ---
Today's Communication/Plan
-
transfer to med/surg
slow wean to steroids
wean O2 back to baseline
d/c planning
Assessment / Plan
Assessment / Plan
pt is a 63 year old male
Acute Hypercapnic and Hypoxic Respiratory Distress on chronic hypoxemic respiratory failure --pulled off BiPAP in ED and then was on HI DONNY-- off HI DONNY and back on lower O2 doses (on 3L as of 02/04/24)--possibly due to O2 dependent COPD
exacerbation--COVID negative--apprec pulm input--wean IV steroids on decadron 4mg IV Q12, will need SLOW taper at d/c--cont duonebs
Diabetes Mellitus type 2- restart Metformin, continue Januvia-- Continue Lantus, Novolog, and start SS Insulin- 2200 jack diabetic diet as pt hungry- Repeat Accuhecks
Schizophrenia- Continue home meds, Seroquel, Olanzapine, Depakote
Hypothyroidism- Continue Levothyroxine
DVT PPx- Lovenox
CODE STATUS -- FULL CODE
transfer to med/surg
Anticipated Discharge: 24 - 48 hours
Subjective/Interval History
-
Date of Service: February 04, 2024
pt at 3L--sitting in chair eating breakfast
Objective Data
-
Labs:
Laboratory Results
02/04/24 02/04/24
04:06 05:51
WBC 6.5
Hgb 10.9 L
Hct 32.4 L
Plt Count 140
Sodium Cancelled 136
Potassium Cancelled 4.6
Chloride Cancelled 89 L
Carbon Dioxide Cancelled 37 H
BUN Cancelled 27 H
Creatinine Cancelled 0.5 L
Glucose Cancelled 221 H
Calcium Cancelled 9.0
Vital Signs:
max temp for 24 hours
02/04/24
03:31
Temp 97.6 F
Vital Signs
Temp Pulse Resp BP Pulse Ox
97.6 F 80 18 132/81 93
02/04/24 03:31 02/04/24 08:45 02/04/24 08:45 02/04/24 08:00 02/04/24 08:59
I&O
02/03/24 02/04/24 02/05/24
07:59 06:59 06:59
Intake Total
Output Total
Balance
Review of Systems
-
All other systems: Reviewed and negative
Physical Exam
-
General: Well Developed, Well Nourished and No Apparent Distress
HEENT: Normocephalic, Atraumatic and Oxygen
Respiratory: Decreased Breath Sounds; Negative Wheezes
Cardiac: Regular Rhythm and S1/S2; Negative Murmur
GI: Soft, Nontender, Nondistended and Normal Bowel Sounds
Musculoskeletal: No Clubbing, No Cyanosis and No Edema
Neuro: Awake and Alert
Psych: Calm
--- NOTE | 2024-02-04 09:44 | PTCARENOTE ---
Patient alert and oriented. He is impulsive and forgetful. Bed alarm and chair alarm in use as well as med-sitter. Patient is currently out of bed to chair. Assistance of one and rolling walker. SR on monitor, ST with ambulation. Vital signs
stable, afebrile.
--- NOTE | 2024-02-04 10:48 | CM ---
CM reviewed medical records. Patient is well known to this CM. 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 Patient is known to [facility]. Patient is chronically on oxygen.
Plan to return to [facility] on discharge with [facility].
[facility]
Report [phone] x [phone],
fax [phone].
--- NOTE | 2024-02-04 11:16 | PTCARENOTE ---
Report given to Dary RODRIGUEZ. Patient transferred to [address] [place] [address] on stretcher. All belongings are with the patient. [facility]-sitter transferred with the patient.
--- NOTE | 2024-02-04 11:39 | PTCARENOTE ---
Rec'd pt from IMY via hs bed. AAO, forgetful and anxious. Pt reoriented with floor and staff. No other complaints. Assessment unchanged as prior am. Will cont to monitor.
[2024-02-04 11:58] LABS: Glucose - Point of Care 345 mg/dl (70-99)
[2024-02-04] MEDS: NOVOLOG FLEXPEN-HIGH RESISTANCE 10 UNITS SC ×2 (11:59→16:50)
--- NOTE | 2024-02-04 12:41 | W.PN.PUL3 ---
Today's Communication / Plan
-
PT/OT
Continue with steroids, slow wean
Aspiration precautions
Assessment
-
63-year-old male with a history of COPD on 2 L O2, diabetes, hypothyroid, GERD, BPH, schizophrenia recently discharged 01/17/2024 for COPD exacerbation. Patient has evidence of chronic hypoxia, chronic hypercapnia. Now admitted for COPD
exacerbation and hypoxia requiring high flow oxygen. We are asked to comment on pulmonary process
Acute COPD exacerbation
Failed outpatient therapy, recently discharged 01/17/2024
Recent COVID-positive 01/10/2024
Acute on chronic hypercapnia, more or less compensated
Hyperglycemia
Recent right lower lobe pneumonia per CT chest September 2023
Right hilar lymphadenopathy
Aspiration syndrome
Abnormal VSE 09/28/2023
Conditions present prior to admission:
COPD/O2 2 L-Dr. Addison.
FEV1 32%
Chronic hypercapnia
Baseline CO2 70s
KATTY total index 6.1, desaturation jonah 78%
Former smoker.
Diabetes.
Hypothyroid.
GERD.
BPH.
Schizophrenia.
Cholecystectomy.
Plan/recommendations
At this time, patient appears to be comfortable
There is some mild wheezing on exam, but improved significantly
93% on 4 L
Reviewed recent hospital stay
Reviewed ED visit
Patient with little pulmonary reserve given baseline FEV1 of 32%
Hyperdynamic LV also noted on recent echocardiogram April 2023
Aspiration risk noted
Moving forward
Presently he appears to be comfortable, conversant
No use of accessory muscles
Significant oxygen requirement noted. I suspect this is due to poor pulmonary reserve in the setting of recurrent aspiration risk
Improved down to 4L
Given his history of untreated sleep apnea, nocturnal hypoxia, I suspect this may also be contributing to his pulmonary process with hypoventilation
Recent bout of COVID noted 2 weeks ago
Continue with steroids for now, slow wean, 10 mg every 7 days following discharge
Continue IV steroids for now, will transition to oral at some point prior to discharge
Continue with azithromycin, anti-inflammatory dosing (Monday/Monday/Monday
Nebulized therapy [id number]
Aspiration precautions
Doubt component of heart failure
Chest x-ray does suggest slight increased patchy infiltrate at the base. Per my review appears to be more consistent with airways disease
CT chest without evidence of obvious bronchiectasis but I suspect mucous plugging on the CT chest from September 2023
Acapella device
Consider 3% saline if he does not respond to the above. Hold for now
Monitor blood sugar
Insulin supplementation as needed
DVT prophylaxis-Lovenox therapy
GI prophylaxis-on pantoprazole
The patient was last seen by Dr. Addison 09/06/2023 and subsequently by Maribell Cochran 10/24/2023 and Amrita Jackson 12/06/23-has appointment 02/12/[address] Addison
Disposition efforts
Diagnostic data:
Chest x-ray 01/10/2024-mild right basilar pneumonia progressed from prior
CXR 11/22/23- worsening RUL pemonia.Small right pleual effusion. grossly stable bibasilar atelectasis-CXR 11/12/23- patchy opacity in the right lung base which may represent atelectasis or pneumonia. no large pleural effusion or pneumothorax.-
CXR 10/14/2023: Improved aeration of the right lower lung field concerning for improved pneumonia. Flattening of the diaphragms consistent with COPD.VSE 09/28/2023: No aspiration. Deep transient penetration of thin liquid.
CT chest PE study 09/13/2023: No PE. Small right pleural effusion. Patchy airspace opacity in the inferior right lower lobe suspicious for mild pneumonia. Mildly enlarged right hilar lymph node, nonspecific but favored to be reactive.
CXR 06/17/23: Severe left basilar pna.
LDCT 06/14/23: Confluent consolidation within the posteroinferior lingula. Severe confluent consolidation within the basilar and lateral segments. Posterior aspiration related.VSE 06/07/23: No aspiration
CT Chest 03/24/21: Mild pericardial thickening and/or tiny pericardial effusion. Small right lower lobe groundglass opacity seen on prior study no longer identified. Approximate 1.3 cm anterior mediastinal lymph node.
Lower extremity ultrasound 12/16/2023-no evidence for DVT in the left lower extremity
Echo 04/28/23: Hyperdynamic LV systolic function. EF 70-75%. Mild .
Echocardiogram 12/15/2023-EF 65-70%, mild aortic stenosis
PFT (only able to perform [place]) 09/16/21: FVC 1.83/44%, FEV1 1.00/32%, ratio 55%. Severe obstruction and suggestive of severe restriction.Spirometry 02/10/2021: Reviewed, FEV1/FVC 67%, FEV1 1.13 L-35%, FVC 2.23 L -53%.Mixed ventilatory defect.
Moderate to severe airflow obstruction with a restriction.
PFT 02/15/19: FEV1 0.96 L 30%, FVC 1.90 L 44%, ratio 51. Unable to perform study volumes/DLCO.
ABG 12/14/2023--93/82/7 0.31
HST 02/06/19: REESE 6.1, O2 jonah 78%, 75.4% of the study was spent with saturation below 90%.
OVERNIGHT PULSE OXIMETER:�Nocturnal O2 study 10/15/18: Lowest 63%, time spent below 88% was 0.4%. DEI 1.0.
Subjective Data
-
Date of Service:
Date of Service: February 04, 2024
Subjective:
Patient examined earlier today. Without complaints. He describes chronic intermittent chest pain, states this is chronic. Has mild cough, denies shortness of breath to me this morning
Objective Data
Data Reviewed
Vital Signs / I&O / Oxygen:
Vital Signs
Temp Pulse Resp BP Pulse Ox
97.6 F 79 18 124/68 93
02/04/24 11:00 02/04/24 11:00 02/04/24 11:00 02/04/24 11:00 02/04/24 11:00
Intake and Output
02/03/24 02/04/24 02/05/24
07:59 06:59 06:59
Intake Total 865 / 865
Output Total 360 / 360
Balance 505 / 505
SaO2 93
Nasal Cannula flow liters per 4
minute
Physical Exam
General: Comfortable
HEENT: Normocephalic and Anicteric
Cardiovascular: S1-S2, Regular Rhythm and Murmur (n)
Respiratory: Wheeze (n), Crackles (Mild at base), Rhonchi (Few) and Non-Labored Respirations
GI: Soft, Non Distended and Non Tender
Neurology: Awake, Alert and No Motor Deficits
Skin: Cyanosis (n), Jaundice (n) and Other (Mild pallor)
Labs/Micro/Reports
Lab Data
02/04/24 04:06
02/04/24 05:51
[2024-02-04] MEDS: FLUSH (NSS) 2 FLUSH IV (13:29)
[2024-02-04 16:32] LABS: Glucose - Point of Care 334 mg/dl (70-99)
[2024-02-04] MEDS: LOVENOX 40 MG SC (16:50)
[2024-02-04] MEDS: ZYPREXA 20 MG PO (16:51)
[2024-02-04 21:15] LABS: Glucose - Point of Care 336 mg/dl (70-99)
[2024-02-04] MEDS: LIPITOR 20 MG PO (22:46)
[2024-02-04] MEDS: FLOMAX 0.4 MG PO (22:46)
[2024-02-04] MEDS: SEROQUEL 50 MG PO (22:46)
[2024-02-05] MEDS: DECADRON 4 MG IV ×2 (01:59→13:01)
[2024-02-05] MEDS: SYNTHROID 200 MCG PO (06:27)
[2024-02-05 07:40] VITALS: BP 133/70
[2024-02-05] MEDS: DUONEB 3 ML INH (07:40)
--- NOTE | 2024-02-05 07:49 | W.PN.PUL3 ---
Today's Communication / Plan
-
PT/OT - rec'd senior care with prior support
Continue with steroids, slow wean
Aspiration precautions
DuoNebs
Mucolytics; add nebulized 3% if needed - hold for now and continue to monitor
Outpatient follow-up strongly recommended
Assessment
-
63-year-old male with a history of COPD on 2 L O2, diabetes, hypothyroid, GERD, BPH, schizophrenia recently discharged 01/17/2024 for COPD exacerbation. Patient has evidence of chronic hypoxia, chronic hypercapnia. Now admitted for COPD
exacerbation and hypoxia requiring high flow oxygen. We are asked to comment on pulmonary process
Impression:
Acute COPD exacerbation
Failed outpatient therapy, recently discharged 01/17/2024
Recent COVID-positive 01/10/2024
Acute on chronic hypercapnia, more or less compensated
Hyperglycemia (HbA1C: 6.8 on 01/11/2024)
Recent right lower lobe pneumonia per CT chest September 2023
Right hilar lymphadenopathy
Aspiration syndrome
Abnormal VSE 09/28/2023
Conditions present prior to admission:
COPD/O2 2 L-Dr. Addison.
FEV1 32%
Chronic hypercapnia
Baseline CO2 70s
KATTY total index 6.1, desaturation jonah 78%
Former smoker.
Diabetes.
Hypothyroid.
GERD.
BPH.
Schizophrenia.
Cholecystectomy.
Plan/recommendations
At this time, patient appears to be comfortable
There was some mild wheezing on exam, but now resolved
He is now on room air as of 02/05/2024
Reviewed recent hospital stay
Reviewed ED visit
Patient with little pulmonary reserve given baseline FEV1 of 32%
Hyperdynamic LV also noted on recent echocardiogram April 2023, although most recent echo from 12/15/2023 showed preserved LVEF 65-70% without regional WMA and no mention of hyperdynamic LV
Aspiration risk noted
Moving forward
Presently he appears to be comfortable, conversant
No use of accessory muscles
Significant oxygen requirement noted, although he is now down to room air as of 02/05/2024. I suspect his prior O2 requirement is due to poor pulmonary reserve in the setting of recurrent aspiration risk
Given his history of untreated sleep apnea, nocturnal hypoxia, I suspect this may also be contributing to his pulmonary process with hypoventilation
Recent bout of COVID noted 2 weeks ago
Continue with steroids for now, slow wean, 10 mg every 7 days following discharge
Continue IV steroids for now, will transition to oral at some point prior to discharge
Continue with azithromycin, anti-inflammatory dosing (Monday/Monday/Monday), monitor QTc and outpatient audiology eval
Nebulized therapy [id number]
Aspiration precautions
Doubt component of heart failure
Chest x-ray does suggest slight increased patchy infiltrate at the base. Per my review appears to be more consistent with airways disease
CTA chest from 09/13/2023 shows bronchial wall thickening with atelectasis in the anterior RUL + medial RML without obvious
Acapella device
Consider 3% saline if he does not respond to the above. Hold for now
Monitor blood sugar
Insulin supplementation as needed
DVT prophylaxis-Lovenox therapy
GI prophylaxis: N/A - already on PPI as it's a home med
The patient was last seen by Dr. Addison 09/06/2023 and subsequently by Maribell Cochran 10/24/2023 and Amrita Jackson 12/06/23-has appointment 02/12/2024 at [address] Addison
Disposition efforts; pulmonary service will continue to follow along
Diagnostic data:
Chest x-ray 01/10/2024-mild right basilar pneumonia progressed from prior
CXR 11/22/23- worsening RUL pemonia.Small right pleual effusion. grossly stable bibasilar atelectasis-CXR 11/12/23- patchy opacity in the right lung base which may represent atelectasis or pneumonia. no large pleural effusion or pneumothorax.-
CXR 10/14/2023: Improved aeration of the right lower lung field concerning for improved pneumonia. Flattening of the diaphragms consistent with COPD.VSE 09/28/2023: No aspiration. Deep transient penetration of thin liquid.
CT chest PE study 09/13/2023: No PE. Small right pleural effusion. Patchy airspace opacity in the inferior right lower lobe suspicious for mild pneumonia. Mildly enlarged right hilar lymph node, nonspecific but favored to be reactive.
CXR 06/17/23: Severe left basilar pna.
LDCT 06/14/23: Confluent consolidation within the posteroinferior lingula. Severe confluent consolidation within the basilar and lateral segments. Posterior aspiration related.VSE 06/07/23: No aspiration
CT Chest 03/24/21: Mild pericardial thickening and/or tiny pericardial effusion. Small right lower lobe groundglass opacity seen on prior study no longer identified. Approximate 1.3 cm anterior mediastinal lymph node.
Lower extremity ultrasound 12/16/2023-no evidence for DVT in the left lower extremity
Echo 04/28/23: Hyperdynamic LV systolic function. EF 70-75%. Mild .
Echocardiogram 12/15/2023-EF 65-70%, mild aortic stenosis
PFT (only able to perform [place]) 09/16/21: FVC 1.83/44%, FEV1 1.00/32%, ratio 55%. Severe obstruction and suggestive of severe restriction.Spirometry 02/10/2021: Reviewed, FEV1/FVC 67%, FEV1 1.13 L-35%, FVC 2.23 L -53%.Mixed ventilatory defect.
Moderate to severe airflow obstruction with a restriction.
PFT 02/15/19: FEV1 0.96 L 30%, FVC 1.90 L 44%, ratio 51. Unable to perform study volumes/DLCO.
ABG 12/14/2023--93/82/7 0.31
HST 02/06/19: REESE 6.1, O2 jonah 78%, 75.4% of the study was spent with saturation below 90%.
OVERNIGHT PULSE OXIMETER:�Nocturnal O2 study 10/15/18: Lowest 63%, time spent below 88% was 0.4%. DEI 1.0.
Total time spent today was 36 minutes for this encounter. Time includes reviewing laboratory test/imaging results, reviewing pertinent medical records, obtaining and reviewing medical history, performing an appropriate exam, ordering medications,
tests and procedures. Time also includes documentation of this encounter, coordinating patient care and communicating with other healthcare professionals. Total time does not include separately billed tests performed on this date of service.
Subjective Data
-
Date of Service:
Date of Service: February 05, 2024
Chief Complaint: Pulmonary Follow Up
Subjective:
Patient seen and evaluated this morning. On mid flow nasal cannula 2 L/min. Afebrile overnight. He says that he is breathing okay, although still bringing up phlegm. He has no issues coughing up his phlegm. Denies fevers, chills, chest pain,
SEGURA, abdominal pain, diarrhea.
Review of Systems
General: Other (Negative unless mentioned above)
Objective Data
Data Reviewed
Vital Signs / I&O / Oxygen:
Vital Signs
Temp Pulse Resp BP Pulse Ox
97.9 F 68 18 157/73 94
02/04/24 23:25 02/05/24 07:44 02/05/24 07:44 02/04/24 23:25 02/05/24 07:44
Intake and Output
02/04/24 02/05/24 02/06/24
06:59 06:59 06:59
Intake Total 3745 / 3745
Output Total 2260 / 2260
Balance 1485 / 1485
SaO2 94
Nasal Cannula flow liters per 3
minute
Physical Exam
General: Respiratory Distress (negative), Comfortable, Chills (negative) and Sweats (negative)
HEENT: Normocephalic and Anicteric
Cardiovascular: S1-S2 and Murmur (SHIVA heard in RUSB, grade III/)
Respiratory: Wheeze (n), Crackles (Mild at base), Rhonchi (Few scattered bilaterally samantha upon expiration) and Non-Labored Respirations
GI: Soft, Non Distended and Non Tender
Neurology: Awake, Alert and Tremors (negative)
Skin: Warm, Dry, Cyanosis (n) and Jaundice (n)
[2024-02-05 07:54] LABS: Glucose - Point of Care 239 mg/dl (70-99)
[2024-02-05] MEDS: VITAMIN B-12 500 MCG PO (07:58)
[2024-02-05] MEDS: NOVOLOG FLEXPEN-HIGH RESISTANCE 4 UNITS SC (07:58)
[2024-02-05] MEDS: LANTUS 0.18 UNITS SC (07:58)
[2024-02-05] MEDS: PROTONIX 40 MG PO (07:59)
[2024-02-05] MEDS: LASIX 20 MG PO (07:59)
[2024-02-05] MEDS: CARDIZEM CD 120 MG PO (07:59)
[2024-02-05] MEDS: JANUVIA 100 MG PO (07:59)
[2024-02-05] MEDS: NORVASC 5 MG PO (07:59)
[2024-02-05] MEDS: DEPAKOTE (12 HR RELEASE) 250 MG PO (07:59)
[2024-02-05] MEDS: CLARITIN 10 MG PO (07:59)
[2024-02-05] MEDS: ZITHROMAX 250 MG PO (07:59)
[2024-02-05] MEDS: DEPAKOTE (12 HR RELEASE) 1000 MG PO (07:59)
--- NOTE | 2024-02-05 08:43 | VNURNOTE ---
Chart reviewed. Patient is current with [facility] nursing. Will continue to follow hospital course and DC plans.
[2024-02-05 08:54] LABS: Hemoglobin 12.3 g/dL (13.0-18.0); Mean Corp Hgb Conc. 34.2 g/dL (33.0-37.0); Mean Corpuscular Hgb 33.8 pg (27.0-31.0); Mean Corpuscular Volume 98.9 fL (80.0-94.0); Platelet Count 142 10^3/uL (130-400); Red Blood Cell Count 3.64 10^6/uL (4.70-6.10); White Blood Cell Count 6.4 10^3/uL (4.8-10.8)
[2024-02-05 09:30] LABS: Blood Urea Nitrogen 24 mg/dl (9-20); Calcium 9.1 mg/dl (8.4-10.2); Carbon Dioxide 39 mmol/L (22-30); Chloride 87 mmol/L (98-107); Glucose 298 mg/dl (70-99); Potassium 4.8 mmol/L (3.5-5.1); Sodium 136 mmol/L (135-145); eGFR > 60.00
[2024-02-05 10:29] VITALS: BP 120/63; PULSE 75; O2SAT 97
[2024-02-05 10:52] VITALS: BP 120/63; PULSE 73
[2024-02-05 12:26] LABS: Glucose - Point of Care 479 mg/dl (70-99)
[2024-02-05 13:13] LABS: Glucose 457 mg/dl (70-99)
[2024-02-05] MEDS: NOVOLOG FLEXPEN-HIGH RESISTANCE 14 UNITS SC (13:21)
--- NOTE | 2024-02-05 13:28 | CM ---
Patient for discharge home to [facility] today. Please call report to [phone] and fax to [phone]. Patient completed IMM and signed form placed on chart. CM reviewed with Gilda Miller and plan for ambulance to transport home
with home O2 2 liters. CM will call to family member with update. CM will continue to follow for discharge planning needs.
Plan; home with VN cece
--- NOTE | 2024-02-05 13:57 | W.PN.HOSP.TC ---
Addendum entered and electronically signed by Bonny Car MD 02/05/24 18:39:
I saw and evaluated the patient independently. I reviewed the resident�s note and agree with findings and plan as documented by Dr. Etienne.
GENERAL: well developed, well nourished, in no apparent distress
HEENT: NC/AT--baseline O2 NC
HEART: regular rate and rhythm, +S1, +S2
LUNGS : clear to auscultation bilaterally
ABDOM: soft, nontender, nondistended, + bowel sounds
EXT: no cyanosis, clubbing, or edema
NEUROLOGIC: grossly intact
Acute Hypercapnic and Hypoxic Respiratory Distress on chronic hypoxemic respiratory failure --pulled off BiPAP in ED and then was on HI DONNY-- off HI DONNY and back on lower O2 doses (on 3L as of 02/04/24)--possibly due to O2 dependent COPD
exacerbation--COVID negative--apprec pulm input--wean IV steroids on decadron 4mg IV Q12, will need SLOW taper at d/c--cont duonebs
Diabetes Mellitus type 2- restart Metformin, continue Januvia-- Continue Lantus, Novolog, and start SS Insulin- 2200 jack diabetic diet as pt hungry- Repeat Accuhecks
Schizophrenia- Continue home meds, Seroquel, Olanzapine, Depakote
Hypothyroidism- Continue Levothyroxine
DVT PPx- Lovenox
CODE STATUS -- FULL CODE
ok for d/c back to his senior care
Addendum entered and electronically signed by Nilton Etienne DO, Resident 02/05/24 16:45:
Acute on Chronic Hypercapnic/Hypoxic Respiratory Distress*
Original Note:
Today's Communication/Plan
-
.
Assessment / Plan
Assessment / Plan
1. Acute Hypercapnic and Hypoxic Respiratory Distress
- Pulled off BiPAP in ED and then was on HI DNONY-- off HI DONNY and back on lower O2 doses (on 3L as of 02/04/24)
- Wean trial to 2L successful; 96% on 2L NC
- Conversion to PO Prednisone and begin taper at discharge. Slow taper (10mg/7days) per pulm reccs.
- Continue Duonebs
2. 2. Diabetes Mellitus
- Continue Januvia. Metformin restarted over the weekend.
- Continue Lantus, Novolog.
- 2199 jack diabetic diet
- Repeat Accuhecks
3. Schizophrenia
- Continue home meds, Seroquel, Olanzapine, Depakote
4. Hypothyroidism
- Continue Levothyroxine
5. DVT PPx
- Lovenox
Anticipated Discharge: Today
Subjective/Interval History
-
Date of Service: February 05, 2024
Pt resting comfortably in chair. History limited secondary to developmental delay. No acute complaints today. Says breathing is 'fine' and cough is 'fine'. Denies pain.
Objective Data
-
Labs:
Laboratory Results
02/05/24 02/05/24
08:14 12:52
WBC 6.4
Hgb 12.3 L
Hct 36.0 L
Plt Count 142
Sodium 136
Potassium 4.8
Chloride 87 L
Carbon Dioxide 39 H
BUN 24 H
Creatinine 0.7
Glucose 298 H 457 H*
Calcium 9.1
Vital Signs:
Vital Signs
Temp Pulse Resp BP Pulse Ox
97.5 F 68 18 133/70 96
02/05/24 07:40 02/05/24 07:44 02/05/24 07:44 02/05/24 07:40 02/05/24 12:27
I&O
02/04/24 02/05/24 02/06/24
06:59 06:59 06:59
Intake Total 3745 / 3745
Output Total 2260 / 2260
Balance 1485 / 1485
Review of Systems
-
Unable to obtain full review of systems at this time due to: Other
History Source: Patient
All other systems: Not reviewed unless documented
Respiratory: Reports No Symptoms
Cardiac: Reports No Symptoms
Abdomen/GI: Reports No Symptoms
Neuro: Reports No Symptoms
Physical Exam
-
General: Well Developed, Well Nourished and Comfortable
HEENT: Normocephalic and Atraumatic
Respiratory: Wheezes (end-expiratory wheezes throughout; improved from admission. )
Cardiac: Regular Rhythm and S1/S2
GI: Soft and Nontender
Skin: Warm and Dry
Neuro: Awake and Alert
Data Reviewed
-
Labs: Labs Reviewed by me
--- NOTE | 2024-02-05 15:30 | PN.CDI ---
CDI
- -
CDI:
Physician Documentation Request
Admit Date: 02/02/24 15:46
Dear Doctor Lowell,
Patient presented to ED with shortness of breath. On arrival was tachypenic and had expiratory wheezing throughout. Discharge diagnosis from ED 'Acute respiratory failure with hypoxia and hypercarbia...'
Pulmonary consultation states 'At baseline he is on 2 L of oxygen... history of chronic hypercapnia/chronic hypoxia .... Now admitted for COPD exacerbation and hypoxia requiring high flow oxygen'
Hospitalist progress note states 'Acute Hypercapnic and Hypoxic Respiratory Distress on chronic hypoxemic respiratory failure '
In an attempt to clarify potentially conflicting documentation, please clarify the type and acuity the patient's respiratory status:
Type Acuity
Respiratory failure with hypoxia Acute
Respiratory failure with hypercapnia Chronic
Respiratory failure with hypoxia and hypercapnia Acute on Chronic
Other, please specify
Use of terms such as suspected, likely, concern for, or probable (associated with a specific diagnosis that is being evaluated, monitored, or treated as if it exists) are acceptable and can be coded in the inpatient setting, when documented at the
time of discharge.
Thank you,
Dayana Knutson RN, BSN
CDI Specialist
tiger text
Please use your independent medical judgment in providing your response.
[2024-02-05 15:50] VITALS: BP 125/64
[2024-02-05 16:37] LABS: Glucose - Point of Care 389 mg/dl (70-99)
--- NOTE | 2024-02-05 16:48 | W.DCSUMMARY ---
Addendum entered and electronically signed by Bonny Car MD 02/05/24 18:44:
Read, reviewed, and agree. See same day progress note for additional details. Time spent coordinating care, DC planning, review of DC plan of care with resident, transition of care, review of records in EMR, med rec, consults, notes, d/w
consultants, nursing, family, and CM = 40 minutes.
Original Note:
Discharge Summary
Discharge Data
Date of Admission: 02/02/24
Date of Discharge: 02/05/24
-
Pending Results: No
Hospital Course
Oren Velazquez is a 63-year-old male with a past medical history of COPD, diabetes mellitus type 2, schizophrenia, hypothyroidism, developmental delay. He presented to the emergency department at outside hospital on February 02, 2024 due to trouble
breathing. History was limited secondary to the patient's developmental delay and acute respiratory distress. Per EMS the patient was picked up from [facility] due to respiratory distress. The patient, who is normally on 2 L of oxygen at the
[facility], had been requiring 4 L for approximately 4 days prior to arrival. Notably the patient had previously been admitted to [facility] 3 weeks earlier, on January 10 2024, for respiratory distress and was treated for COPD
exacerbation. During that admission he was started on antibiotics, but was then found to be COVID-19 positive. The antibiotics were discontinued and the patient was sent home on a steroid taper.
Upon arrival to the emergency department the patient had mild tachypnea and exhibited expiratory wheezing throughout. The patient was started on an hour-long nebulizer breathing treatment, steroids, and a chest x-ray was obtained. The chest x-ray
appeared normal and unchanged from prior. EKG also did not show any evidence of cardiac abnormalities. The patient was afebrile and had a normal white count. ABG however, showed an acidosis of 7.33 and hypercarbia of 74. The patient was placed
on BiPAP, and then transition to high flow oxygen. Due to the hypercapnia high flow was discontinued and the patient was placed on 4 L of oxygen. The patient was admitted to [facility] on February 02, 2024 for acute on chronic hypercapnic
and hypoxic respiratory distress.
While admitted the patient was seen by pulmonary consultants, who noted that the patient had little pulmonary reserve given a baseline FEV1 of 32%. They recommended IV steroids be continued, the patient should continue with his outpatient dose of
prophylactic azithromycin, anti-inflammatories, and nebulizer therapy. The patient was also given an Acapella device. Over the course of the next couple of days, the patient's oxygen requirements were closely followed, and the patient was
successfully weaned to 3 L of oxygen, and then 2 L of oxygen. By February 04 the patient was saturating at 95% on 2 L of oxygen. With regards to his acute on chronic hypercapnic/hypoxic respiratory distress, possibly caused by COPD exacerbation, the
patient was medically stable and ready to be discharged on February 05, 2024. The patient was discharged on his usual home medications, but was converted from IV steroids to oral steroids with plans to utilize a slow taper. Upon discharge, the
patient was to start taking 50mg of prednisone daily for 1 week, and decrease his dose by 10 mg every 7 days, ultimately leading to a 5 week taper. Outpatient follow up with the component assembler was strongly recommended. No changes to his home O2
requirements were made.
With regards to the patient's diabetes mellitus, the patient's metformin was initially held while admitted, and the patient was started on sliding scale insulin in addition to his home insulin regimens and Jenuvia. The patient would use eating as a
self-soothing mechanism and despite a 2200 jack low-carb diet in the hospital, stat insulin was required on a couple of occasions. The patient was discharged to home on his regular medications, but it is recommended that he follow up with this
primary care physician for tailoring of his diabetes medications.
The patient's schizophrenia medications and thyroid medications were continued while hospitalized and no changes were made.
It is recommended that the patient follow up with his primary care provider, as well as the component assembler upon discharge from the hospital. The patient was discharged back to [facility] on 02/05/2024.
Discharge Plan
-
Patient Disposition: [facility]NF
Discharge Diagnosis/Procedures: Acute Hypercapnic and Hypoxic Respiratory Distress
Diabetes Mellitus Type 2
Condition: Fair
Diet: Diabetic, Carb Controlled
Activity: As tolerated
Referrals:
Rubio Edwards DO [Family Provider] -
Prescriptions:
New
prednisone 10 mg Tablet
See Rx Instructions .ROUTE .COMPLEX Qty: 105 0RF
Rx Instructions:
Take By Mouth:
50 mg daily x7 days, then 40 mg daily x7 days, then
30 mg daily x7 days, then 20 mg daily x7 days, then
10 mg daily x7 days
Continued
levothyroxine 200 MCG tablet
200 mcg PO DAILY@0600
acetaminophen [Tylenol] 325 mg Tablet
650 mg PO Q4HPRN PRN (Reason: mild pain)
atorvastatin 20 mg tablet
20 mg PO HS
polyethylene glycol 3350 [Miralax] 17 gram Powder In Packet
17 g PO DAILYPRN PRN (Reason: constipation)
divalproex 250 mg Tablet,Delayed Release (Dr/Ec)
250 mg PO BID@0800,1999
Patient Comments:
11/22/2023: taken w/ 1000mg = 1250mg
divalproex 500 mg Tablet,Delayed Release (Dr/Ec)
1,000 mg PO BID@799,1999
Patient Comments:
11/22/2023: taken w/ 250mg = 1250mg
cyanocobalamin (vitamin B-12) 500 mcg Tablet
500 mcg PO DAILY
albuterol sulfate 90 mcg/actuation Hfa Aerosol Inhaler
2 puff INHALATION R Q4HPRN PRN (Reason: copd)
ipratropium-albuterol 0.5 mg-3 mg(2.5 mg base)/3 mL Solution For Nebulization
3 ml INHALATION R BID
Januvia 100 mg Tablet
100 mg PO DAILY
Acid Gone Antacid 95-358 mg/15 mL Suspension
15 ml PO DAILYPRN PRN (Reason: gerd)
ipratropium-albuterol 0.5 mg-3 mg(2.5 mg base)/3 mL Solution For Nebulization
3 ml INHALATION R Q4HPRN PRN (Reason: sob)
dextromethorphan-guaifenesin [Omaira-Tussin DM] 10-100 mg/5 mL Liquid
10 ml PO Q4HPRN PRN (Reason: cough)
amlodipine [Norvasc] 5 mg Tablet
5 mg PO DAILY
tamsulosin [Flomax] 0.4 mg Capsule
0.4 mg PO HS
omeprazole 20 mg Capsule,Delayed Release(Dr/Ec)
20 mg PO DAILY
diltiazem HCl 120 mg Capsule,Extended Release 24hr
120 mg PO DAILY
Novolin R FlexPen 100 unit/mL (3 mL) Insulin Pen
1 sliding scale dose SC ACHS
Rx Instructions:
100-150=3units, 151-200=6units, 201-250=9units, 251-300=12units, 301-350=14units
quetiapine [Seroquel] 50 mg Tablet
50 mg PO HS
metformin 1,000 mg Tablet
1,000 mg PO BID
guaifenesin [Mucus Relief ER] 600 mg Tablet Extended Release 12hr
600 mg PO [id number] PRN (Reason: cough/conjestion)
azithromycin 250 mg Tablet
250 mg PO MOWEFR@0800
furosemide [Lasix] 20 mg Tablet
20 mg PO DAILY
fexofenadine 180 mg Tablet
180 mg PO DAILY
olanzapine 20 mg Tablet
20 mg PO QPM
insulin glargine [Lantus Solostar U-100 Insulin] 100 unit/mL (3 mL) Insulin Pen
18 unit SC DAILY
Discontinued
prednisone 10 mg tablet
10 mg PO DAILY
Rx Instructions:
take 10mg daily
Discharge Orders:
Discharge Patient (As Directed); Ordered 02/05/24
Ordered By: Nilton Etienne
Discharge Date and Time
Print Language: ROMANIAN
[2024-02-05] MEDS: NOVOLOG FLEXPEN-HIGH RESISTANCE 12 UNITS SC (17:04)
[2024-02-05] MEDS: LOVENOX SC (17:05)
[2024-02-05] MEDS: AFLURIA (36 mos+) 2024-2025 FORMULA 0.5 ML IM (17:10)
[2024-02-05] MEDS: ZYPREXA 20 MG PO (17:10)
== END 2024-02-05 18:45 | disposition home health service (06) | DRG 191 ==
LOC: 2 NORTH 15:46
PROVIDERS: Student in an Organized Health Care Education/Training Program; ADMITTING PHYSICIAN Internal Medicine; EMERGENCY PHYSICIAN Student in an Organized Health Care Education/Training Program; FAMILY PHYSICIAN Family Medicine; OTHER PHYSICIAN Internal Medicine Critical Care Medicine
DX: J44.1 Chronic obstructive pulmonary disease with (acute) exacerbation (principal); E87.29 Other acidosis; J96.11 Chronic respiratory failure with hypoxia; E03.9 Hypothyroidism, unspecified; E11.65 Type 2 diabetes mellitus with hyperglycemia; F20.9 Schizophrenia, unspecified; I10 Essential (primary) hypertension; Z78.1 Physical restraint status; Z99.81 Dependence on supplemental oxygen; Z87.01 Personal history of pneumonia (recurrent); G47.33 Obstructive sleep apnea (adult) (pediatric); H40.9 Unspecified glaucoma; H54.62 Unqualified visual loss, left eye, normal vision right eye; K21.9 Gastro-esophageal reflux disease without esophagitis; K59.00 Constipation, unspecified; N40.0 Benign prostatic hyperplasia without lower urinary tract symptoms; F41.9 Anxiety disorder, unspecified; R62.50 Unspecified lack of expected normal physiological development in childhood; Z79.4 Long term (current) use of insulin; Z79.84 Long term (current) use of oral hypoglycemic drugs; Z79.890 Hormone replacement therapy; Z79.899 Other long term (current) drug therapy; Z86.16 Personal history of COVID-19; Z87.891 Personal history of nicotine dependence; Z87.442 Personal history of urinary calculi; Z11.52 Encounter for screening for COVID-19
CPT/HCPCS: 71045; 80048; 80053; 82805; 82947; 82962; 83735; 85025; 85027; 87811; 90686; 93005; 94640; 94644; 94660; 96372; 96374; 97116; 97162; 97166; 97530; 97535; 99291; G0008